=== PATIENT | male | born 1945 | race Caucasian/White ===

== ENCOUNTER → 2017-04-04 09:37 | Outpatient (CLI) | payer MEDICARE, SELFPAY ==
[2017-04-04 10:37] VITALS: PULSE 82; PULSE 90
== END ==
PROVIDERS: Family Provider Family Medicine; PCP Family Medicine; Visit Provider Family Medicine
DX: J06.9 Acute upper respiratory infection, unspecified (principal); J44.1 Chronic obstructive pulmonary disease with (acute) exacerbation
CPT/HCPCS: 94060; 94640

== ENCOUNTER 2018-05-17 07:31 | Observation (INO) ==
--- NOTE | 2018-05-17 15:58 | History & Physical Report ---
*Admission Date: 05/17/18 *Chief complaint: chest pressure *History of present illness: 72 year old male has been admitted from Cardiology office today after an abnormal stress test was noted. Patient started noticing symptoms about 2-3 weeks ago after being treated for a sinus infection. He denies actual pain, radiation of symptoms, shortness of breath, nausea or diarphoresis. Chest pressure occurs at rest and with activity. Current medications include simvastatin, finasteride, asa 81 mg, and OTC probiotic. He previously smoked 1.5PPD X30 years and quit in 2003. Describes self as pretty physically active by walking dog 4X/day or a couple miles each day. Diet is unrestricted and he does admit eating quite a few high fatty foods. Denies FH of heart disease. PMH significant for left knee surgery, left wrist surgery and left lung cancer. This was treated in 2014 with radiation. [facility] History Medical History: Reports:: BPH, Cancer, Hyperlipidemia, Peripheral Artery Disease *Have you ever received a pneumonia vaccine?: Yes Laterality Cases: Left: Arthroscopy Knee Other Surgeries: Yes: Cardiac Catheterization, Cholecystectomy, Other (L broken wrist sx, left knee sx, basal cancer) - *Social History Smoking Status: Former smoker #Yrs smoked (if former smoker): 30 Alcohol Intake: never Substance Use Type: denies use *Occupational Status:: retired Family Hx:: Cancer Review of Systems - Constitutional Denies fatigue, Denies lack of energy, Denies weakness - *Cardiovascular Denies chest pain, Denies generalized swelling, Denies irregular heart rhythm, Denies rapid, pounding, or irregular heartbeat Comments: chest pressure - *Respiratory Denies chest congestion, Denies cough, Denies shortness of breath - *Gastrointestinal Denies abdominal pain, Denies constipation - Allergic/Immunologic Denies GI upset with certain foods Meds Home Medications Medication Instructions Recorded Confirmed Type Lactobacillus Acidophilus 1 each PO DAILY 05/17/18 05/17/18 History [Acidophilus] aspirin 81 mg tablet,delayed 81 mg PO DAILY 05/17/18 05/17/18 History release finasteride 5 mg tablet 5 mg PO DAILY 05/17/18 05/17/18 History simvastatin 40 mg tablet 40 mg PO QHS 05/17/18 05/17/18 History Allergies Allergy/AdvReac Type Severity Reaction Status Date / Time No Known Allergies Allergy Verified 05/17/18 14:01 Exam Vital signs and Labs for Last 24 Hours: Temp Pulse Resp BP Pulse Ox 98.2 F 83 18 175/89 H 98 05/17/18 14:59 05/17/18 14:59 05/17/18 14:59 05/17/18 14:59 05/17/18 14:59 I & O for Last 24 hours: Intake & Output 05/14/18 05/15/18 05/16/18 05/17/18 23:59 23:59 23:59 23:59 Weight 165 lb 4 oz - Constitutional no acute distress Comments: well appearing male in NAD, sitting up in recliner chair with at bedside - *Routine HEENT Exam Head: Present: normocephalic, atraumatic Eye: Present: EOMI, PERRL ENT: Present: mucous membranes moist - *Routine Respiratory Exam Present: CTA bilaterally. Absent: accessory muscle use - *Routine Cardiovascular Exam Present: RRR, Normal S1, Normal S2. Absent: bradycardia, tachycardia, irregular rhythm - *Routine Abdominal Exam Present: soft, normoactive bowel sounds. Absent: tenderness, distended - *Routine Extremities Exam Present: full ROM. Absent: cyanosis, edema - *Routine Skin Exam Present: intact. Absent: cyanosis, pallor - *Routine Neurological Exam Present: alert, oriented X3 - Routine Psychiatric Exam Present: normal affect Assessment and Plan (1) HLD (hyperlipidemia) Current visit: No Status: Chronic Qualifiers: Hyperlipidemia type: mixed hyperlipidemia Qualified Code(s): E78.2 - Mixed hyperlipidemia Category: Medical Code(s): E78.5 - Hyperlipidemia, unspecified (2) Typical angina Current visit: No Status: Acute Category: Medical Code(s): I20.9 - Angina pectoris, unspecified - Assessment and plan all Dx Assessment and Plan for all problems:: Patient will be admitted to second floor medical surgical unit for observation and additional diagnostics. NPO after midnight as plan from Cardiology is to perform cardiac catheterization tomorrow. Intervention or additional recommendations will take place at that time.
[2018-05-17 17:22] LABS: Basophils % 0.5 % (0.1-2.0); Eosinophils # 0.1 K/mm3 (0.0-0.4); Eosinophils % 1.1 % (0.1-12.0); Hematocrit 50.1 % (42.0-52.0); Hemoglobin 16.5 g/dL (14.1-18.0); Lymphocytes # 2.2 K/mm3 (0.7-4.5); Lymphocytes % 24.9 % (10-50); Mean Corpuscular Hemoglobin 29.1 pg (27.0-31.2); Mean Corpuscular Volume 88.1 fl (80-94); Mean Platelet Volume 7.9 fl (7.4-10.4); Monocytes # 0.5 K/mm3 (0.1-1.0); Monocytes % 5.6 % (1.7-9.3); Neutrophils # 5.9 K/mm3 (1.8-7.8); Neutrophils % 68.1 % (37.0-80.0); Platelet Count 239 K/mm3 (142-424); Red Blood Count 5.68 M/mm3 (4.60-6.20); Red Cell Distribution Width 13.9 % (11.5-17.5); White Blood Count 8.7 K/mm3 (4.8-10.8)
[2018-05-17 17:30] LABS: Activated Partial Thrombo Time 30.5 seconds (23.6-34.0); INR 0.97 (0.9-1.1)
[2018-05-17 17:43] LABS: Albumin Level 4.4 gm/dL (3.4-5.0); Anion Gap 12.1 mEq/L (5-15); Bilirubin,Total 0.9 mg/dL (0.2-1.0); Calcium 10.1 mg/dL (8.5-10.1); Globulin 4.2 gm/dl (1.3-3.2); Potassium 4.1 mmoL/L (3.5-5.1); Total Protein,Serum 8.6 gm/dL (6.4-8.2)
[2018-05-18 06:02] LABS: Basophils % 0.5 % (0.1-2.0); Eosinophils # 0.1 K/mm3 (0.0-0.4); Eosinophils % 1.5 % (0.1-12.0); Hematocrit 41.2 % (42.0-52.0); Mean Corpuscular HGB Conc 33.1 g/dL (31.8-35.4); Mean Corpuscular Hemoglobin 28.6 pg (27.0-31.2); Mean Corpuscular Volume 86.4 fl (80-94); Mean Platelet Volume 7.6 fl (7.4-10.4); Monocytes # 0.5 K/mm3 (0.1-1.0); Monocytes % 6.1 % (1.7-9.3); Neutrophils # 4.8 K/mm3 (1.8-7.8); Neutrophils % 64.9 % (37.0-80.0); Platelet Count 206 K/mm3 (142-424); Red Blood Count 4.77 M/mm3 (4.60-6.20); White Blood Count 7.4 K/mm3 (4.8-10.8)
[2018-05-18 06:21] LABS: Hemoglobin 13.7 g/dL (14.1-18.0)
--- NOTE | 2018-05-18 07:00 | Progress Note ---
Internal Medicine - PN: Subj *Date: 05/18/18 *Time: 06:58 Interval history: Patient has done well overnight and denies any chest pain since admission to the floor. He is only ambulated short distances such as to the bathroom. He is scheduled for cardiac catheterization today Exam Vital signs and Labs for Last 24 Hours: Temp Pulse Resp BP Pulse Ox 97.9 F 66 18 104/85 L 96 05/18/18 04:00 05/18/18 04:00 05/18/18 04:00 05/18/18 04:00 05/18/18 04:00 Laboratory Results - last 24 hr 05/17/18 15:25: WBC 8.7, RBC 5.68, Hgb 16.5, Hct 50.1, MCV 88.1, MCH 29.1, MCHC 33.0, RDW 13.9, Plt Count 239, MPV 7.9, Neut % (Auto) 68.1, Lymph % (Auto) 24.9, [place] % (Auto) 5.6, Eos % (Auto) 1.1, Baso % (Auto) 0.5, Neut # (Auto) 5.9, Lymph # (Auto) 2.2, [place] # (Auto) 0.5, Eos # (Auto) 0.1, Baso # (Auto) 0.0 05/17/18 15:25: PT 10.0, INR 0.97, APTT 30.5 05/17/18 15:25: Sodium 139, Potassium 4.1, Chloride 103, Carbon Dioxide 28, Anion Gap 12.1, BUN 11, Creatinine 1.08, Estimated Creat Clear 67, Estimated GFR 68, Est GFR ( Amer) 82, Glucose 86, Calcium 10.1, Total Bilirubin 0.9, AST 18, ALT 26, Alkaline Phosphatase 103, Total Protein 8.6 H, Albumin 4.4, Globulin 4.2 H, Albumin/Globulin Ratio 1.0 L 05/17/18 15:25: Troponin I 0.03 05/17/18 20:06: Troponin I < 0.02 05/17/18 23:11: Troponin I < 0.02 05/18/18 00:35: APTT 33.7 05/18/18 05:36: WBC 7.4, RBC 4.77, Hgb 13.7 L D, Hct 41.2 L, MCV 86.4, MCH 28.6, MCHC 33.1, RDW 14.0, Plt Count 206, MPV 7.6, Neut % (Auto) 64.9, Lymph % (Auto) 27.0, [place] % (Auto) 6.1, Eos % (Auto) 1.5, Baso % (Auto) 0.5, Neut # (Auto) 4.8, Lymph # (Auto) 2.0, [place] # (Auto) 0.5, Eos # (Auto) 0.1, Baso # (Auto) 0.0 05/18/18 05:36: Sodium 142, Potassium 4.0, Chloride 107, Carbon Dioxide 26, Anion Gap 13.0, BUN 13, Creatinine 1.03, Estimated Creat Clear 71, Estimated GFR 71, Est GFR ( Amer) 86, Glucose 114 H D, Calcium 9.0 D I & O for Last 24 hours: Intake & Output 05/15/18 05/16/18 05/17/18 05/18/18 11:59 11:59 11:59 11:59 Intake Total 554 / 554 Balance 554 / 554 Weight 166 lb 1 oz - Constitutional no acute distress - *Routine Respiratory Exam Present: CTA bilaterally - *Routine Cardiovascular Exam Present: RRR Assessment and Plan (1) Unstable angina Current visit: Yes Status: Acute Category: Medical Code(s): I20.0 - Unstable angina (2) HLD (hyperlipidemia) Current visit: No Status: Chronic Qualifiers: Hyperlipidemia type: mixed hyperlipidemia Qualified Code(s): E78.2 - Mixed hyperlipidemia Category: Medical Code(s): E78.5 - Hyperlipidemia, unspecified (3) Former smoker Current visit: Yes Status: Acute Category: Social Hx Code(s): Z87.891 - Personal history of nicotine dependence (4) History of lung cancer Current visit: No Status: Chronic Category: Medical Code(s): Z85.118 - Personal history of other malignant neoplasm of bronchus and lung - Assessment and plan all Dx Assessment and Plan for all problems:: Left heart cath today
--- NOTE | 2018-05-18 07:39 | Pharmacy Consult Notes ---
[facility] Pharmacy VTE Monitoring - Patient Demographics Admission date: 05/17/18 Report Date: 05/18/18 Time: 07:39 Allergies/Adverse Reactions: Patient Allergies No Known Allergies Allergy (Verified 05/17/18 14:01) Height: 1.73 m Weight: 75.325 kg Patient Problems: Current Active Problems Unstable angina (Acute) Former smoker (Acute) - VTE Risk Labs: VTE Related Lab Results Hgb 13.7 g/dL (14.1-18.0) L D 05/18/18 05:36 Hct 41.2 % (42.0-52.0) L 05/18/18 05:36 Plt Count 206 K/mm3 (142-424) 05/18/18 05:36 PT 10.0 seconds (9.4-11.8) 05/17/18 15:25 INR 0.97 (0.9-1.1) 05/17/18 15:25 APTT 33.7 seconds (23.6-34.0) 05/18/18 00:35 BUN 13 mg/dL (7-18) 05/18/18 05:36 Creatinine 1.03 mg/dL (0.70-1.30) 05/18/18 05:36 Estimated Creat Clear 71 mL/min (50-200) 05/18/18 05:36 VTE Score: 1 - Prophylaxis VTE Prophylaxis Ordered?: Yes Types of VTE Prophylaxis: TEDS Knee High Location of Applied Device: Bilateral Lower Extremeties - VTE Diagnosis Confirmed Treatment or plan recommended: Continue Current Treatment
--- NOTE | 2018-05-18 10:28 | Progress Note ---
Addendum entered and electronically signed by Wendie Lackey APRN 05/18/18 14:42: Pt returned from Left heart catheterization. SOFY applied to LAD, Left Main and R ight coronary artery. Pt doing well. Pressure dressing had been applied to right wrist after catheterization. Pt was started on Brillinta 90mg BID, Aspirin 81mg daily, Beta kellie and Juan [place] inhibitor. Discussed with pt the importance of no heavy lifting or strenuous activity until follow up with Cardiology in one week. Discuss cardiac rehab at follow up. Follow up in cardiology clinic in one week o r sooner if symptoms develop/persist. Original Note: Subjective Date: 05/18/18 Time: 08:00 Principal diagnosis: Typical chest pain Interval history: 72 year old male admitted to [facility] on 05/17/18 due to typical angina. Pt underwent cardiac stress test and started having chest pain, which did not resolve with rest. Pt stated he had been having increase chest pressure for the past few days accompanied with shortness of breath. Pt denies chest pain, pressure or tightness this am. Pt is resting quietly in his room. at bedside. Pt noted in no distress. Pt is awaiting left heart catheterization this am. Pt verbalized understanding of procedure. Pt agreeable to procedure. Pt noted with Heparin drip infusing. vehicle monitor technician reveals sinus rhythm with heart rate of 80bpm with no ectopy. Pt denies dizziness or palpitations. Pt stated history PAD (stents placed a few years ago). Denies cardiac history. Pt does have history of Lung cancer (2015) and Hyperlipidemia. Pt is a former smoker. Initial cardiac workup was performed. Creatinine 1.08 and BUN 11. Left heart cathertization is scheduled for this am. Recommend obtaining Echocardiogram to assess LV function and valve status. Further recommendations will be made pending on results of [facility]. Thank you for letting Cardiology participate in the care of your pt. Exam Vital signs and Labs for Last 24 Hours: Temp Pulse Resp BP Pulse Ox 98.4 F 70 17 126/68 94 L 05/18/18 08:00 05/18/18 08:00 05/18/18 08:00 05/18/18 08:00 05/18/18 08:00 Laboratory Results - last 24 hr 05/17/18 15:25: WBC 8.7, RBC 5.68, Hgb 16.5, Hct 50.1, MCV 88.1, MCH 29.1, MCHC 33.0, RDW 13.9, Plt Count 239, MPV 7.9, Neut % (Auto) 68.1, Lymph % (Auto) 24.9, [place] % (Auto) 5.6, Eos % (Auto) 1.1, Baso % (Auto) 0.5, Neut # (Auto) 5.9, Lymph # (Auto) 2.2, [place] # (Auto) 0.5, Eos # (Auto) 0.1, Baso # (Auto) 0.0 05/17/18 15:25: PT 10.0, INR 0.97, APTT 30.5 05/17/18 15:25: Sodium 139, Potassium 4.1, Chloride 103, Carbon Dioxide 28, Anion Gap 12.1, BUN 11, Creatinine 1.08, Estimated Creat Clear 67, Estimated GFR 68, Est GFR ( Amer) 82, Glucose 86, Calcium 10.1, Total Bilirubin 0.9, AST 18, ALT 26, Alkaline Phosphatase 103, Total Protein 8.6 H, Albumin 4.4, Globulin 4.2 H, Albumin/Globulin Ratio 1.0 L 05/17/18 15:25: Troponin I 0.03 05/17/18 20:06: Troponin I < 0.02 05/17/18 23:11: Troponin I < 0.02 05/18/18 00:35: APTT 33.7 05/18/18 05:36: WBC 7.4, RBC 4.77, Hgb 13.7 L D, Hct 41.2 L, MCV 86.4, MCH 28.6, MCHC 33.1, RDW 14.0, Plt Count 206, MPV 7.6, Neut % (Auto) 64.9, Lymph % (Auto) 27.0, [place] % (Auto) 6.1, Eos % (Auto) 1.5, Baso % (Auto) 0.5, Neut # (Auto) 4.8, Lymph # (Auto) 2.0, [place] # (Auto) 0.5, Eos # (Auto) 0.1, Baso # (Auto) 0.0 05/18/18 05:36: Sodium 142, Potassium 4.0, Chloride 107, Carbon Dioxide 26, Anion Gap 13.0, BUN 13, Creatinine 1.03, Estimated Creat Clear 71, Estimated GFR 71, Est GFR ( Amer) 86, Glucose 114 H D, Calcium 9.0 D 05/18/18 07:38: APTT 45.8 H D I & O for Last 24 hours: Intake & Output 05/15/18 05/16/18 05/17/18 05/18/18 23:59 23:59 23:59 23:59 Intake Total 360 / 360 194 / 194 Balance 360 / 360 194 / 194 Weight 165 lb 4 oz 166 lb 1 oz - Constitutional mild distress, average body habitus, cooperative - *Routine HEENT Exam Head: Present: normocephalic - *Routine Neck Exam Present: full ROM. Absent: JVD, carotid bruit, normal carotid upstroke - Routine Chest/Breast/Axilla Exam Chest wall: Absent: pacemaker - *Routine Respiratory Exam Present: accessory muscle use, CTA bilaterally. Absent: wheezes - *Routine Cardiovascular Exam Present: Normal S1, Normal S2. Absent: murmur, click, JVD - *Routine Abdominal Exam Present: soft, normoactive bowel sounds. Absent: mass - *Routine Extremities Exam Present: full ROM, pulses intact, normal capillary refill. Absent: cyanosis, clubbing, edema - *Routine Skin Exam Present: intact, dry, warm, normal turgor. Absent: cyanosis, erythema - *Routine Neurological Exam Present: alert, oriented X3, CN II-XII intact, normal reflexes, normal speech - Routine Psychiatric Exam Present: normal affect, normal thought process, cooperative Progress Note: A&P (1) Unstable angina Status: Acute Current Visit: Yes (2) HLD (hyperlipidemia) Status: Chronic Current Visit: No (3) Former smoker Status: Acute Current Visit: Yes (4) History of lung cancer Status: Chronic Current Visit: No Assessment and Plan for All Diagnoses:: Plan: 1. Schedule Left Heart catheterization today due to typical angina and abnormal cardiovascular stress test. 2. Obtain echocardiogram today to assess LV function and valve status. 3. Pending on results of left heart catheterization, further recommendations may be made to plan of care.
--- NOTE | 2018-05-18 15:22 | Cardiology Report ---
PROCEDURE: 2-D M-mode and color Doppler study INDICATIONS FOR THE TEST: Chest painXEX COPD Heart Murmur Tobacco SmokingEX Palpitations Fatigue Syncope Edema Hypertension Diabetes Mellitus Rheumatic Fever SOB DONOHUE Obesity HyperlipidemiaX Family History HD Additional History PERICARDIAL EFF NOTED PATIENT INFORMATION HEIGHT: 68 WEIGHT:166 GENDER: Male B/P:175/89 2-D/M-MODE INTERPRETATION: 2-D MEASUREMENTS OBSERVED VALUES IN CMS Right Ventricular Dimension (RVDd) 3.2 Interventricular Septum (Thickness)(IVsd) 1.0 Left Ventricular Internal Dimensions(LVIDd) 4.1 Left Ventricular Posterior Wall (Thickness)(LVPWd) 1.2 Aortic Root 3.6 Aortic Cusp Separation 1.2 Left Atrial Dimensions (LAD) 3.1 2D 1. Left atrium is mildly enlarged, left ventricle is normal size, mild concentric left ventricular hypertrophy, visually estimated ejection fraction 55% with no regional wall motion abnormality. 2. The right atrium and right ventricle are mildly enlarged with normal contractility. 3. The aortic valve is minimally thickened and fibrosed. 4. The mitral and tricuspid valve are grossly normal. 5. The pulmonic valve is poorly is less than 6. There is small circumferential pericardial effusion noted. DOPPLER INTERROGATION: Doppler interrogation of the aortic, mitral and tricuspid valvular presence of mild mitral and tricuspid regurgitation, tricuspid regurgitation jet velocity is inadequate for calculation of the right ventricular systolic pressure, grade 1 diastolic dysfunction seen without tissue Doppler evidence of raised left atrial pressure. CONCLUSION: 1. Mildly enlarged left atrium, normal left ventricular size, mild concentric left ventricular hypertrophy, visually estimated ejection fraction 55% with no regional wall motion abnormality, grade 1 diastolic dysfunction seen without tissue Doppler evidence of raised left atrial pressure. 2. Mildly enlarged right atrium and right ventricle, contractility of the right ventricle is normal. 3. Mild mitral and tricuspid regurgitation 4. Small circumferential pericardial effusion noted.
--- NOTE | 2018-05-18 15:40 | Pharmacy Consult Notes ---
[facility] Pharmacy Heparin Dosing - Demographic Data Admission date:: 05/17/18 Date: 05/18/18 Time: 15:37 Allergies/Adverse Reactions: Allergies Allergy/AdvReac Type Severity Reaction Status Date / Time No Known Allergies Allergy Verified 05/17/18 14:01 Height: 1.73 m Weight: 75 kg - Indication Medication therapy:: Heparin Patient Problems: Current Active Problems Unstable angina (Acute) Former smoker (Acute) CVA?: No Bleeding problem?: No Kidney disease?: No LA?: No Desired PTT range:: 60-80 seconds - Labs Anticoagulation Lab Results:: 05/17/18 05/18/18 15:25 05:36 Hgb 16.5 13.7 L D Hct 50.1 41.2 L Plt Count 239 206 - Monitoring Dose Monitor 1 Date: 05/17/18 Time: 15:25 PTT Result:: 30.5 Infusion Rate:: 18 ML/HR = 900 UNITS/HR Comment:: BASELINE APM=173 Dose Monitor 2 Date: 05/18/18 Time: 00:35 PTT Result:: 33.7 Infusion Rate:: 22 ML/HR = 1100 UNITS/HR Dose Monitor 3 Date: 05/18/18 Time: 07:38 PTT Result:: 45.8 Infusion Rate:: 24 ML/HR = 1200 UNITS/HR - Core Measures Is INR > or = 2 at discharge?: No Most Recent Labs:: Laboratory Results - last 24 hr 05/17/18 15:25: WBC 8.7, RBC 5.68, Hgb 16.5, Hct 50.1, MCV 88.1, MCH 29.1, MCHC 33.0, RDW 13.9, Plt Count 239, MPV 7.9, Neut % (Auto) 68.1, Lymph % (Auto) 24.9, [place] % (Auto) 5.6, Eos % (Auto) 1.1, Baso % (Auto) 0.5, Neut # (Auto) 5.9, Lymph # (Auto) 2.2, [place] # (Auto) 0.5, Eos # (Auto) 0.1, Baso # (Auto) 0.0 05/17/18 15:25: PT 10.0, INR 0.97, APTT 30.5 05/17/18 15:25: Sodium 139, Potassium 4.1, Chloride 103, Carbon Dioxide 28, Anion Gap 12.1, BUN 11, Creatinine 1.08, Estimated Creat Clear 67, Estimated GFR 68, Est GFR ( Amer) 82, Glucose 86, Calcium 10.1, Total Bilirubin 0.9, AST 18, ALT 26, Alkaline Phosphatase 103, Total Protein 8.6 H, Albumin 4.4, Globulin 4.2 H, Albumin/Globulin Ratio 1.0 L 05/17/18 15:25: Troponin I 0.03 05/17/18 20:06: Troponin I < 0.02 05/17/18 23:11: Troponin I < 0.02 05/18/18 00:35: APTT 33.7 05/18/18 05:36: WBC 7.4, RBC 4.77, Hgb 13.7 L D, Hct 41.2 L, MCV 86.4, MCH 28.6, MCHC 33.1, RDW 14.0, Plt Count 206, MPV 7.6, Neut % (Auto) 64.9, Lymph % (Auto) 27.0, [place] % (Auto) 6.1, Eos % (Auto) 1.5, Baso % (Auto) 0.5, Neut # (Auto) 4.8, Lymph # (Auto) 2.0, [place] # (Auto) 0.5, Eos # (Auto) 0.1, Baso # (Auto) 0.0 05/18/18 05:36: Sodium 142, Potassium 4.0, Chloride 107, Carbon Dioxide 26, Anion Gap 13.0, BUN 13, Creatinine 1.03, Estimated Creat Clear 71, Estimated GFR 71, Est GFR ( Amer) 86, Glucose 114 H D, Calcium 9.0 D 05/18/18 07:38: APTT 45.8 H D 05/18/18 12:36: Activated Clotting Time > 400 H* Were Heparin and Warfarin started on the same day?: No If not, why?: TAKEN TO BUSINESS MACHINE OPERATOR, HEPARIN DC'D, WARFARIN OR LOVENOX NOT INDICATED
--- NOTE | 2018-05-18 16:11 | Discharge Summary ---
General - General Admission date:: 05/17/18 Discharge date: 05/18/18 HPI HPI: 72 year old male has been admitted from Cardiology office today after an abnormal stress test was noted. Patient started noticing symptoms about 2-3 weeks ago after being treated for a sinus infection. He denies actual pain, radiation of symptoms, shortness of breath, nausea or diarphoresis. Chest pressure occurs at rest and with activity. Current medications include simvastatin, finasteride, asa 81 mg, and OTC probiotic. He previously smoked 1.5PPD X30 years and quit in 2003. Describes self as pretty physically active by walking dog 4X/day or a couple miles each day. Diet is unrestricted and he does admit eating quite a few high fatty foods. Denies FH of heart disease. PMH significant for left knee surgery, left wrist surgery and left lung cancer. This was treated in 2014 with radiation. Hospital Course Hospital Course: Patient had cardiac catheterization today with note as follows: Pt returned from Left heart catheterization. SOFY applied to LAD, Left Main and Right coronary artery. Pt doing well. Pressure dressing had been applied to right wrist after catheterization. Pt was started on Brillinta 90mg BID, Aspirin 81mg daily, Beta kellie and Juan Diego inhibitor. Discussed with pt the importance of no heavy lifting or strenuous activity until follow up with Cardiology in one week. Discuss cardiac rehab at follow up. Follow up in cardiology clinic in one week or sooner if symptoms develop/persist. Objective Vital signs: Temp Pulse Resp BP Pulse Ox 98.5 F 67 16 101/75 L 98 05/18/18 11:12 05/18/18 14:15 05/18/18 14:15 05/18/18 14:15 05/18/18 14:15 no acute distress - *Routine HEENT Exam Head: Present: normocephalic, atraumatic ENT: Present: mucous membranes moist - *Routine Respiratory Exam Present: CTA bilaterally. Absent: accessory muscle use - *Routine Cardiovascular Exam Present: RRR, Normal S1, Normal S2. Absent: irregular rhythm - *Routine Abdominal Exam Present: soft, normoactive bowel sounds. Absent: tenderness - *Routine Extremities Exam Present: full ROM. Absent: cyanosis, edema - *Routine Skin Exam Present: intact. Absent: pallor - *Routine Neurological Exam Present: alert, oriented X3 - Routine Psychiatric Exam Present: normal affect Results Labs on day of discharge: Labs from last 24 hours 05/18/18 05/18/18 05/18/18 12:36 07:38 05:36 WBC RBC Hgb Hct MCV MCH MCHC RDW Plt Count MPV Neut % (Auto) Lymph % (Auto) [place] % (Auto) Eos % (Auto) Baso % (Auto) Neut # (Auto) Lymph # (Auto) [place] # (Auto) Eos # (Auto) Baso # (Auto) PT INR APTT 45.8 H D Activated Clotting Time > 400 H* Sodium 142 Potassium 4.0 Chloride 107 Carbon Dioxide 26 Anion Gap 13.0 BUN 13 Creatinine 1.03 Estimated Creat Clear 71 Estimated GFR 71 Est GFR ( Amer) 86 Glucose 114 H D Calcium 9.0 D Total Bilirubin AST ALT Alkaline Phosphatase Troponin I Total Protein Albumin Globulin Albumin/Globulin Ratio 05/18/18 05/18/18 05/17/18 05:36 00:35 23:11 WBC 7.4 RBC 4.77 Hgb 13.7 L D Hct 41.2 L MCV 86.4 MCH 28.6 MCHC 33.1 RDW 14.0 Plt Count 206 MPV 7.6 Neut % (Auto) 64.9 Lymph % (Auto) 27.0 [place] % (Auto) 6.1 Eos % (Auto) 1.5 Baso % (Auto) 0.5 Neut # (Auto) 4.8 Lymph # (Auto) 2.0 [place] # (Auto) 0.5 Eos # (Auto) 0.1 Baso # (Auto) 0.0 PT INR APTT 33.7 Activated Clotting Time Sodium Potassium Chloride Carbon Dioxide Anion Gap BUN Creatinine Estimated Creat Clear Estimated GFR Est GFR ( Amer) Glucose Calcium Total Bilirubin AST ALT Alkaline Phosphatase Troponin I < 0.02 Total Protein Albumin Globulin Albumin/Globulin Ratio 05/17/18 05/17/18 05/17/18 20:06 15:25 15:25 WBC RBC Hgb Hct MCV MCH MCHC RDW Plt Count MPV Neut % (Auto) Lymph % (Auto) [place] % (Auto) Eos % (Auto) Baso % (Auto) Neut # (Auto) Lymph # (Auto) [place] # (Auto) Eos # (Auto) Baso # (Auto) PT INR APTT Activated Clotting Time Sodium 139 Potassium 4.1 Chloride 103 Carbon Dioxide 28 Anion Gap 12.1 BUN 11 Creatinine 1.08 Estimated Creat Clear 67 Estimated GFR 68 Est GFR ( Amer) 82 Glucose 86 Calcium 10.1 Total Bilirubin 0.9 AST 18 ALT 26 Alkaline Phosphatase 103 Troponin I < 0.02 0.03 Total Protein 8.6 H Albumin 4.4 Globulin 4.2 H Albumin/Globulin Ratio 1.0 L 05/17/18 05/17/18 15:25 15:25 WBC 8.7 RBC 5.68 Hgb 16.5 Hct 50.1 MCV 88.1 MCH 29.1 MCHC 33.0 RDW 13.9 Plt Count 239 MPV 7.9 Neut % (Auto) 68.1 Lymph % (Auto) 24.9 [place] % (Auto) 5.6 Eos % (Auto) 1.1 Baso % (Auto) 0.5 Neut # (Auto) 5.9 Lymph # (Auto) 2.2 [place] # (Auto) 0.5 Eos # (Auto) 0.1 Baso # (Auto) 0.0 PT 10.0 INR 0.97 APTT 30.5 Activated Clotting Time Sodium Potassium Chloride Carbon Dioxide Anion Gap BUN Creatinine Estimated Creat Clear Estimated GFR Est GFR ( Amer) Glucose Calcium Total Bilirubin AST ALT Alkaline Phosphatase Troponin I Total Protein Albumin Globulin Albumin/Globulin Ratio DS: Diagnosis - Discharge Diagnosis (1) Unstable angina Status: Acute (2) HLD (hyperlipidemia) Status: Chronic (3) Former smoker Status: Acute (4) History of lung cancer Status: Chronic Discharge Plan - Patient Discharge Instructions Additional Instructions: FOLLOW UP APPOINTMENT WITH CARDIOLOGY ON 05/25/18 AT 0920 Patient Instructions: Angina - Follow up Plan Follow up with: Magy Logan APRN [Nurse Practitioner] - 05/25/18 11:00 am Disposition: Home, Self-Assisted Medications: Home Medications Medication Instructions Recorded Confirmed Type Lactobacillus Acidophilus 1 each PO DAILY 05/17/18 05/17/18 History [Acidophilus] aspirin 81 mg tablet,delayed 81 mg PO DAILY 05/17/18 05/17/18 History release finasteride 5 mg tablet 5 mg PO DAILY 05/17/18 05/17/18 History Lisinopril [Prinivil 5mg Tablet] 5 mg PO DAILY #30 tab 05/18/18 Rx Metoprolol Tartrate [Lopressor 12.5 mg PO BID #30 tablet 05/18/18 Rx 25mg tablet] Simvastatin 20 mg PO HS 05/18/18 05/18/18 History Ticagrelor [Brilinta 90mg Tablet] 90 mg PO BID #60 tablet 05/18/18 Rx Prescriptions/Medication Reconciliation: New Lisinopril [Prinivil 5mg Tablet] 5 mg PO DAILY #30 tab Metoprolol Tartrate [Lopressor 25mg tablet] 12.5 mg PO BID #30 tablet Ticagrelor [Brilinta 90mg Tablet] 90 mg PO BID #60 tablet Continue finasteride 5 mg tablet 5 mg PO DAILY aspirin 81 mg tablet,delayed release 81 mg PO DAILY Lactobacillus Acidophilus [Acidophilus] 1 each PO DAILY Simvastatin 20 mg PO HS
== END 2018-05-18 20:15 | disposition home or self-care (01) ==
LOC: 2ND 07:31 → RAD 07:31 → ICU 05-18 13:36
PROVIDERS: ADMIT Family Medicine; ATTEND Family Medicine
CPT/HCPCS: 36415; 78452; 80048; 80053; 84484; 85025; 85347; 85610; 85730; 92928; 93017; 93306; 93458; 99152; 99153; A9502; C1725; C1769; C1876; C9600; G0378; J1644; Q9967

== ENCOUNTER → 2018-05-24 11:07 | Outpatient (CLI) | payer MEDICARE, SELFPAY ==
[2018-05-24 11:36] LABS: Hematocrit 44.7 % (42.0-52.0); Hemoglobin 15.1 g/dL (14.1-18.0)
[2018-05-24 16:30] LABS: Blood Urea Nitrogen 20 mg/dL (7-18); Creatinine,Serum 1.04 mg/dL (0.70-1.30); Estimated Glomerular Filt Rate 71 ml/min (>60); GFR (African American) 85 ML/MIN (>60)
== END ==
PROVIDERS: Visit Provider Internal Medicine
DX: Z95.5 Presence of coronary angioplasty implant and graft (principal)
CPT/HCPCS: 36415; 82565; 84520; 85014; 85018

== ENCOUNTER 2018-05-29 09:07 | Outpatient (RCR) | payer MEDICARE, SELFPAY | END 2018-08-17 13:16 | disposition home or self-care (01) | LOC: PT 09:07 | PROVIDERS: Visit Provider Internal Medicine | DX: Z98.61 Coronary angioplasty status (principal) | CPT/HCPCS: 93798 ==

== ENCOUNTER → 2018-06-05 08:35 | Outpatient (CLI) | payer MEDICARE, SELFPAY ==
--- NOTE | 2018-06-05 08:44 | XR_ITS ---
XR DEXA axial skeleton HISTORY: ITS.REASON: OSTEOPOROSIS SCREENING ORDERING PHYSICIAN: Magy Logan APRN PATIENT AGE: 72 years COMPARISON: None FINDINGS: The L1 L4 density has a T score of -1.0 with a Z score of -0.4. Right femoral neck density is 0.787 g/sq cm with a T score of -2.2 and a Z score of -0.9. IMPRESSION: Low bone density as described above. Follow-up suggested. Treatment is advised
== END ==
PROVIDERS: PCP Family Medicine; Visit Provider Nurse Practitioner Family
DX: Z09 Encounter for follow-up examination after completed treatment for conditions other than malignant neoplasm (principal)
CPT/HCPCS: 77080

== ENCOUNTER 2018-06-10 14:21 | Observation (INO) ==
--- NOTE | 2018-06-10 14:23 | Emergency Department Note ---
ED Disposition Clinical Impression: Precordial chest pain Disposition: Admitted as Observation Condition on Discharge: Fair Referrals: Lakhwinder Link MD [Primary Care Provider] - - Critical Care Critical Care Time: No Attestation: On , the high probability of a clinically significant, sudden or life t hreatening deterioration of the following system(s) required my full and direct attention, intervention and personal management. The time I documented below is in addition to time spent performing reported procedures but includes the following listed in this critical care notation. Medical Decision Making - [place]aveen Inquiry Pt receiving controlled substance: No Vital Signs: 06/10/18 14:30 06/10/18 14:39 06/10/18 14:51 Temperature 97.8 F Temperature Source Oral Pulse Rate [Left Brachial] 70 65 69 Respiratory Rate 24 Blood Pressure [Left Arm] 112/75 149/70 H 118/75 Blood Pressure Mean [Left Arm] 87 96 89 Blood Pressure Source [Left Arm] Automatic Cuff Blood Pressure Position [Left Arm] Sitting 02 Sat by Pulse Oximetry 98 95 92 L Oxygen Delivery Method Room Air - Lab Data Lab Results 06/10/18 14:26: WBC 7.0, RBC 5.29, Hgb 15.4, Hct 46.3, MCV 87.4, MCH 29.2, MCHC 33.3, RDW 14.0, Plt Count 184, MPV 7.6, Neut % (Auto) 64.7, Lymph % (Auto) 26.9, [place] % (Auto) 5.6, Eos % (Auto) 2.2, Baso % (Auto) 0.6, Neut # (Auto) 4.6, Lymph # (Auto) 1.9, [place] # (Auto) 0.4, Eos # (Auto) 0.2, Baso # (Auto) 0.0 06/10/18 14:26: Sodium 143, Potassium 3.9, Chloride 105, Carbon Dioxide 29, Anion Gap 12.9, BUN 12, Creatinine 1.07, Estimated Creat Clear 66, Estimated GFR 68, Est GFR ( Amer) 83, Glucose 61 L, Calcium 9.4, Troponin I < 0.02, Amylase 41 06/10/18 14:26: Lipase 92 Result diagrams: 06/10/18 14:26 06/10/18 14:26 Orders (Tests/Meds): ED MEDICATIONS Generic Name Dose Route Start Last Admin Trade Name Freq PRN Reason Stop Dose Admin Nitroglycerin 0.4 mg 06/10/18 14:33 06/10/18 14:56 Nitrostat 0.4mg Sl Tablet SL 07/10/18 14:32 1 tab [id number] PRN Administration Chest Pain Ranolazine 1,000 mg 06/10/18 21:00 Ranexa 500mg Er Tablet PO 07/10/18 20:59 BID AMAN Discontinued Medications Generic Name Dose Route Start Last Admin Trade Name Freq PRN Reason Stop Dose Admin Aspirin 324 mg 06/10/18 14:33 06/10/18 14:55 Aspirin 81mg Chewable Tablet PO 06/10/18 14:34 324 mg ONCE ONE Administration ORDERS Category Date Time Status XR chest portable Stat Exams 06/10/18 14:27 Taken - Radiology Data #1 Image(s): Chest Image Reviewed: Yes I reviewed the patient's radiology image Preliminary Findings: Normal/NAD - ECG Data Tracing #1 EKG interpreted by Nilay Smith MD: Rhythm: sinus Rate: 69 [place]: normal Ectopy: none Conduction: normal ST Segment Changes: none T Wave Changes: none Q Waves: none No evidence of acute ischemia or injury - Physician Consults Physician Consulted: Gulshan Time: 15:18 Reason -: Cardiology Eval/Care Comment/Response: States this is likely arteritis from stents. Request patient be started on Ranexa 1000 mg twice daily, admitted for serial cardiac enzymes. Additional Consult: Nikolay Time: 15:25 Reason -: Admission Comment/Response: Agrees to admit the patient to the hospital. We discussed the patient's clinical information, including history, exam, laboratory and radiology results and ED course. Per hospital procedure, I will write temporary bridge inpatient orders on the patient. Specific orders requested by the admitting physician: Per cardiology - Reevaluation(s) Time: 15:12 Reevaluation #1: States his chest "pain" is gone but still having a low-grade pressure, like what he had before he had stents. Medical Decision Narrative: Prior [facility]: ANGIOGRAPHIC RESULTS: 1. The left main artery has a distal 20-30% stenosis 2. The left anterior descending artery has an ostial 50% stenosis followed by a proximal 40% stenosis followed by an 80-90% stenosis immediately distal to the first septal medical geneticist and diagonal artery. The remaining vessel is widely patent with minimal stenoses less than 10% 3. The circumflex artery is a nondominant vessel and has mild 10% luminal irregularities 4. The right coronary artery is a large dominant vessel and has proximal 80-90% stenosis with 70-80% mid vessel stenoses. Distally there are 30% stenoses 5. The JUNIOR ventriculogram reveals normal 65% 6. The left ventricular end-diastolic pressure 10 mmHg IMPRESSION: 1. Successful stenting of the left main artery, severe disease reduced to 0% with 1 drug-eluting stent 2. Successful stenting of the ostial proximal LAD, severe disease reduced to 0% with 2 drug-eluting stents as described above 3. Successful stenting of the proximal to mid dominant right coronary artery, severe disease reduced to 0% with 2 contiguous drug-eluting stents as described above 4. Normal ejection fraction 5. Normal left ventricular end-diastolic pressure PLAN: 1. Brilinta and aspirin 2. LDL less than 55 3. Risk factor modification 4. Cardiac rehabilitation 5. Continued surveillance of patient's known lung cancer per oncology service 6. Avoidance of tobacco products Dictated By: Carl Gaffney MD Signed By: <Electronically signed by Carl Gaffney MD in OV> 05/18/18 1426 General Adult HPI - General Chief complaint: PAIN Stated complaint: left shoulder pain Time Seen by Provider: 06/10/18 14:25 - History of Present Illness HPI narrative: The patient had cardiac stents placed by Dr. Gaffney 3 weeks ago. 1 hour ago he started having chest pressure in the precordial area with discomfort in his left shoulder and increased shortness of breath. Feels flushed, but not sweaty or nauseated. Also states that he was having "gas" since last night, describes as lots of belching. Current discomfort is 3-4/10. States that his current discomfort is the same type that he was having prior to having stents placed, but he is worse in intensity. He says that he has been having problems with shortness of breath, he was changed from Brilinta to Plavix a couple of days ago because of that. He takes aspirin 81 mg daily, he last took it last night. - Related Data Home Medications Medication Instructions Recorded Confirmed Lactobacillus Acidophilus 1 each PO DAILY 05/17/18 06/10/18 [Acidophilus] aspirin 81 mg tablet,delayed 81 mg PO DAILY 05/17/18 06/10/18 release finasteride 5 mg tablet 5 mg PO DAILY 05/17/18 06/10/18 Simvastatin 20 mg PO HS 05/18/18 06/10/18 Clopidogrel Bisulfate [Plavix 75mg 75 mg PO DAILY 06/10/18 06/10/18 Tab] Lisinopril [Prinivil 5mg Tablet] 5 mg PO DAILY 06/10/18 06/10/18 Metoprolol Tartrate [Lopressor 12.5 mg PO BID 06/10/18 06/10/18 25mg tablet] Allergies Allergy/AdvReac Type Severity Reaction Status Date / Time No Known Allergies Allergy Verified 06/07/18 10:35 [facility] History - Hepatitis A Screen Attestation statement:: This patient has been screened for Hepatitis A risk factors. I have reviewed the patient's past medical history: Yes Medical History: Reports:: BPH, Cancer, Hyperlipidemia, Hypertension, Peripheral Artery Disease Denies:: Diabetes Mellitus Type 1, Diabetes Mellitus Type 2, MRSA Other Medical History: Reports: Chemotherapy, Radiation Therapy Laterality Cases: Other Surgeries: Yes: Cardiac Catheterization, Cholecystectomy, Coronary Stent, Other Amputation: No Fractures: No - Social History Smoking Status: Former smoker #Yrs smoked (if former smoker): 30 Alcohol Intake: never Substance Use Type: denies use Occupational Status: retired Housing: house Household Members: spouse Family Hx:: Cancer Comment: Brother-Cancer. Sister-Respiratory ROS Obtained: Yes All systems reviewed & no additional complaints - Constitutional Constitutional: Denies fever(s) - Cardiovascular Cardiovascular: Reports chest pain, Denies leg edema - Respiratory Respiratory: Yes dyspnea Physical Exam - General General appearance: alert, in no apparent distress - Head Head exam: atraumatic, normocephalic - Eye Eye exam: Present: normal appearance, EOMI - ENT ENT exam: Present: mucous membranes moist - Neck Neck exam: Present: normal inspection, trachea midline - Chest Chest inspection: Present: normal inspection, symmetric chest wall rise - Respiratory Respiratory exam: Present: normal lung sounds bilaterally. Absent: respiratory distress - Cardiovascular Cardiovascular exam: Present: regular rate, normal rhythm, normal heart sounds - Abdominal Exam Abdominal exam: Present: soft. Absent: distention, tenderness - Extremities Exam Extremities exam: Present: normal inspection, full ROM. Absent: calf tenderness - Neurological Exam Neurological exam: Present: alert, oriented X3 - Psychiatric Psychiatric exam: Present: normal affect, normal mood - Skin Skin exam: Present: warm, dry
[2018-06-10 14:39] LABS: Basophils % 0.6 % (0.1-2.0); Eosinophils # 0.2 K/mm3 (0.0-0.4); Eosinophils % 2.2 % (0.1-12.0); Hematocrit 46.3 % (42.0-52.0); Hemoglobin 15.4 g/dL (14.1-18.0); Lymphocytes # 1.9 K/mm3 (0.7-4.5); Lymphocytes % 26.9 % (10-50); Mean Corpuscular HGB Conc 33.3 g/dL (31.8-35.4); Mean Corpuscular Hemoglobin 29.2 pg (27.0-31.2); Mean Corpuscular Volume 87.4 fl (80-94); Mean Platelet Volume 7.6 fl (7.4-10.4); Monocytes # 0.4 K/mm3 (0.1-1.0); Monocytes % 5.6 % (1.7-9.3); Neutrophils # 4.6 K/mm3 (1.8-7.8); Neutrophils % 64.7 % (37.0-80.0); Platelet Count 184 K/mm3 (142-424); Red Blood Count 5.29 M/mm3 (4.60-6.20)
[2018-06-10 14:52] LABS: Amylase 41 U/L (25-115); Anion Gap 12.9 mEq/L (5-15); Blood Urea Nitrogen 12 mg/dL (7-18); Calcium 9.4 mg/dL (8.5-10.1); Carbon Dioxide 29 mmol/L (21.0-32.0); Chloride 105 mmol/L (98-107); Glucose 61 mg/dL (74-106); Potassium 3.9 mmoL/L (3.5-5.1); Sodium 143 mmol/L (136-145)
--- NOTE | 2018-06-11 07:31 | H&P/Discharge Summary ---
General - General Admission date:: 06/10/18 Discharge date: 06/11/18 *Admission Date: 06/10/18 *Chief complaint: Chest pain *History of present illness: 72-year-old male with recent stenting from obstructive coronary artery disease presented to the emergency department yesterday with chest pain radiating into the left shoulder. Patient reports yesterday morning experiencing onset of a "chest heaviness". Chest heaviness was intermittent and lasted throughout the morning and into the afternoon. However in the afternoon the discomfort change from a heaviness to a sharp stabbing pain that radiated into the left shoulder. Patient became concerned. He also admits to facial flushing and may be mild increase in baseline dyspnea with the chest pain. The chest pain he experienced yesterday afternoon was more intense than any pain he experienced prior to coronary artery stenting. In the emergency department he was given nitroglycerin with resolution of the pain. ER physician spoke with Dr. Gaffney who recommended admission for rule out of SC with serial cardiac enzymes. Patient is ruled out for SC overnight. He was started on Ranexa 1000 mg twice daily yesterday evening per Dr. Gaffney's orders. [facility] History I have reviewed the patient's past medical history: Yes Medical History: Reports:: BPH, Cancer, Chronic Obstructive Pulmonary Disease (COPD), Coronary Artery Disease, Hyperlipidemia, Hypertension, Peripheral Artery Disease Denies:: Diabetes Mellitus Type 1, Diabetes Mellitus Type 2, MRSA *Have you ever received a pneumonia vaccine?: Yes *Have you received a flu vaccine this season?: Yes Other Medical History: Reports: Chemotherapy, Radiation Therapy Laterality Cases: Left: Arthroscopy Knee Other Surgeries: Yes: Cardiac Catheterization, Cholecystectomy, Coronary Stent, Other Amputation: No Fractures: No - *Social History Educational Level: Attended College Smoking Status: Former smoker #Yrs smoked (if former smoker): 30 Alcohol Intake: never Substance Use Type: denies use *Occupational Status:: retired Housing: house Household Members: spouse *Travel in the last 8 weeks: None - Psychiatric History Expresses thoughts of harming self/others: None Suicide Plan Description: No Plan Family Hx:: Cancer Review of Systems - Review of Systems Review of systems:: pertinent systems reviewed and negative unless documented below - Constitutional Denies body ache(s), Denies chills - *Cardiovascular Reports chest pain, Reports chest pain at rest, Reports shortness of breath (From COPD and combination of Brilinta) - *Respiratory Reports shortness of breath, Denies change in phlegm color, Denies chest congestion, Denies cough Exam Vital signs and Labs for Last 24 Hours: Temp Pulse Resp BP Pulse Ox 97.7 F 55 L 13 129/63 96 06/11/18 04:00 06/11/18 04:00 06/11/18 04:00 06/11/18 04:00 06/11/18 04:00 Laboratory Results - last 24 hr 06/10/18 14:26: WBC 7.0, RBC 5.29, Hgb 15.4, Hct 46.3, MCV 87.4, MCH 29.2, MCHC 33.3, RDW 14.0, Plt Count 184, MPV 7.6, Neut % (Auto) 64.7, Lymph % (Auto) 26.9, [place] % (Auto) 5.6, Eos % (Auto) 2.2, Baso % (Auto) 0.6, Neut # (Auto) 4.6, Lymph # (Auto) 1.9, [place] # (Auto) 0.4, Eos # (Auto) 0.2, Baso # (Auto) 0.0 06/10/18 14:26: Sodium 143, Potassium 3.9, Chloride 105, Carbon Dioxide 29, Anion Gap 12.9, BUN 12, Creatinine 1.07, Estimated Creat Clear 66, Estimated GFR 68, Est GFR ( Amer) 83, Glucose 61 L, Calcium 9.4, Troponin I < 0.02, Amylase 41 06/10/18 14:26: Lipase 92 06/10/18 18:45: Troponin I < 0.02 06/10/18 21:40: Troponin I < 0.02 I & O for Last 24 hours: Intake & Output 06/08/18 06/09/18 06/10/18 06/11/18 11:59 11:59 11:59 11:59 Weight 162 lb 7 oz - Constitutional no acute distress - *Routine Neck Exam Present: supple. Absent: JVD, carotid bruit - *Routine Respiratory Exam Present: CTA bilaterally. Absent: rhonchi, wheezes - *Routine Cardiovascular Exam Present: RRR, Normal S1, Normal S2 - *Routine Abdominal Exam Present: soft, normoactive bowel sounds. Absent: tenderness - *Routine Extremities Exam Present: full ROM, pulses intact. Absent: edema Hospital Course Hospital Course: Patient ruled out for SC overnight. The following morning he underwent repeat cardiac catheterization due to ongoing chest pain similar to his previous angina albeit described as more intense. Patient had patent stents and no new obstructive disease. After cardiac catheterization patient was discharged home later in the day and will begin Ranexa. Results Labs on day of discharge: Labs from last 24 hours 06/10/18 06/10/18 06/10/18 21:40 18:45 14:26 WBC RBC Hgb Hct MCV MCH MCHC RDW Plt Count MPV Neut % (Auto) Lymph % (Auto) [place] % (Auto) Eos % (Auto) Baso % (Auto) Neut # (Auto) Lymph # (Auto) [place] # (Auto) Eos # (Auto) Baso # (Auto) Sodium Potassium Chloride Carbon Dioxide Anion Gap BUN Creatinine Estimated Creat Clear Estimated GFR Est GFR ( Amer) Glucose Calcium Troponin I < 0.02 < 0.02 Amylase Lipase 92 06/10/18 06/10/18 14:26 14:26 WBC 7.0 RBC 5.29 Hgb 15.4 Hct 46.3 MCV 87.4 MCH 29.2 MCHC 33.3 RDW 14.0 Plt Count 184 MPV 7.6 Neut % (Auto) 64.7 Lymph % (Auto) 26.9 [place] % (Auto) 5.6 Eos % (Auto) 2.2 Baso % (Auto) 0.6 Neut # (Auto) 4.6 Lymph # (Auto) 1.9 [place] # (Auto) 0.4 Eos # (Auto) 0.2 Baso # (Auto) 0.0 Sodium 143 Potassium 3.9 Chloride 105 Carbon Dioxide 29 Anion Gap 12.9 BUN 12 Creatinine 1.07 Estimated Creat Clear 66 Estimated GFR 68 Est GFR ( Amer) 83 Glucose 61 L Calcium 9.4 Troponin I < 0.02 Amylase 41 Lipase DS: Diagnosis - Discharge Diagnosis (1) Precordial chest pain Status: Acute (2) Former smoker Status: Acute (3) CAD (coronary artery disease) Status: Chronic (4) HHD (hypertensive heart disease) Status: Chronic (5) HLD (hyperlipidemia) Status: Chronic (6) History of lung cancer Status: Chronic Discharge Medications - Medications for Discharge Home Medication List at Discharge: New Ranolazine [Ranexa] 1,000 mg PO BID #60 tab.er.12h Continued finasteride 5 mg tablet 5 mg PO DAILY aspirin 81 mg tablet,delayed release 81 mg PO DAILY Metoprolol Tartrate [Lopressor 25mg tablet] 12.5 mg PO BID Lisinopril [Prinivil 5mg Tablet] 5 mg PO DAILY Lactobacillus Acidophilus [Acidophilus] 1 each PO DAILY Simvastatin 20 mg PO HS Clopidogrel Bisulfate [Plavix 75mg Tab] 75 mg PO DAILY Disposition Disposition: Home, Self-Care
--- NOTE | 2018-06-11 07:38 | Pharmacy Consult Notes ---
[facility] Pharmacy VTE Monitoring - Patient Demographics Admission date: 06/10/18 Report Date: 06/11/18 Time: 07:38 Allergies/Adverse Reactions: Patient Allergies No Known Allergies Allergy (Verified 06/07/18 10:35) Height: 1.73 m Weight: 73.68 kg Patient Problems: Current Active Problems (Updated 06/11/18 @ 07:32 by Lakhwinder Link MD) Precordial chest pain (Acute) - VTE Risk Labs: VTE Related Lab Results Hgb 15.4 g/dL (14.1-18.0) 06/10/18 14:26 Hct 46.3 % (42.0-52.0) 06/10/18 14:26 Plt Count 184 K/mm3 (142-424) 06/10/18 14:26 BUN 12 mg/dL (7-18) 06/10/18 14:26 Creatinine 1.07 mg/dL (0.70-1.30) 06/10/18 14:26 Estimated Creat Clear 66 mL/min (50-200) 06/10/18 14:26 Was VTE Risk Assessment Performed: Yes VTE Score: 1 VTE Risk Level: Low Risk Clinical Trial Participant: No - Prophylaxis VTE Prophylaxis Ordered?: Yes Types of VTE Prophylaxis: TEDS Knee High
--- NOTE | 2018-06-11 08:53 | Consult Report ---
History of Present Illness Consult date: 06/11/18 Requesting physician: Lakhwinder Link Consult reason: chest pain Chief complaint: chest pain Additional Medical History:: 1. Coronary artery disease A. [facility], 05/2018, ANGIOGRAPHIC RESULTS: 1. The left main artery has a distal 20-30% stenosis 2. The left anterior descending artery has an ostial 50% stenosis followed by a proximal 40% stenosis followed by an 80-90% stenosis immediately distal to the first septal sharepoint solutions developer and diagonal artery. The remaining vessel is widely patent with minimal stenoses less than 10% 3. The circumflex artery is a nondominant vessel and has mild 10% luminal irregularities 4. The right coronary artery is a large dominant vessel and has proximal 80- 90% stenosis with 70-80% mid vessel stenoses. Distally there are 30% stenoses 5. The JUNIOR ventriculogram reveals normal 65% 6. The left ventricular end-diastolic pressure 10 mmHg IMPRESSION: 1. Successful stenting of the left main artery, severe disease reduced to 0% with 1 drug-eluting stent 2. Successful stenting of the ostial proximal LAD, severe disease reduced to 0% with 2 drug-eluting stents as described above 3. Successful stenting of the proximal to mid dominant right coronary artery, severe disease reduced to 0% with 2 contiguous drug-eluting stents as described above 4. Normal ejection fraction 5. Normal left ventricular end-diastolic pressure PLAN: 1. Brilinta and aspirin 2. LDL less than 55 3. Risk factor modification 4. Cardiac rehabilitation 5. Continued surveillance of patient's known lung cancer per oncology service 6. Avoidance of tobacco products 2. History of lung cancer in 2014, 30 radiation treatments to the chest wall and [address] scan of the chest every 6 months B. Former smoker 3. Peripheral artery disease with history of stenting in both legs by Dr. Carlo Worthy several years ago 4. Hyperlipidemia History of present illness: 72-year-old male with recent stenting from obstructive coronary artery disease presented to the emergency department yesterday with chest pain radiating into the left shoulder. Patient reports yesterday morning experiencing onset of a "chest heaviness". Chest heaviness was intermittent and lasted throughout the morning and into the afternoon. However in the afternoon the discomfort change from a heaviness to a sharp stabbing pain that radiated into the left shoulder. Patient became concerned. He also admits to facial flushing and may be mild increase in baseline dyspnea with the chest pain. The chest pain he experienced yesterday afternoon was more intense than any pain he experienced prior to coronary artery stenting. In the emergency department he was given nitroglycerin with resolution of the pain. ER physician spoke with Dr. Gaffney who recommended admission for rule out of WI with serial cardiac enzymes. Patient is ruled out for WI overnight. He was started on Ranexa 1000 mg twice daily yesterday evening per Dr. Gaffney's orders The above per Dr. Link Patient confirms that the symptoms he had yesterday were the same as he had prior to his recent stenting. Cardiac enzymes normal overnight. EKG is sinus with no acute ST segment changes. [facility] History Medical History: Reports:: BPH, Cancer, Chronic Obstructive Pulmonary Disease (COPD), Coronary Artery Disease, Hyperlipidemia, Hypertension, Peripheral Artery Disease Denies:: Diabetes Mellitus Type 1, Diabetes Mellitus Type 2, MRSA *Have you ever received a pneumonia vaccine?: Yes *Have you received a flu vaccine this season?: Yes Other Medical History: Reports: Chemotherapy, Radiation Therapy Laterality Cases: Left: Arthroscopy Knee Other Surgeries: Yes: Cardiac Catheterization, Cholecystectomy, Coronary Stent, Other Amputation: No Fractures: No - *Social History Educational Level: Attended College Smoking Status: Former smoker #Yrs smoked (if former smoker): 30 Alcohol Intake: never Substance Use Type: denies use *Occupational Status:: retired Housing: house Household Members: spouse *Travel in the last 8 weeks: None - Psychiatric History Expresses thoughts of harming self/others: None Suicide Plan Description: No Plan Family Hx:: Cancer Meds Home Medications Medication Instructions Recorded Confirmed Type Lactobacillus Acidophilus 1 each PO DAILY 05/17/18 06/10/18 History [Acidophilus] aspirin 81 mg tablet,delayed 81 mg PO DAILY 05/17/18 06/10/18 History release finasteride 5 mg tablet 5 mg PO DAILY 05/17/18 06/10/18 History Simvastatin 20 mg PO HS 05/18/18 06/10/18 History Clopidogrel Bisulfate [Plavix 75mg 75 mg PO DAILY 06/10/18 06/10/18 History Tab] Lisinopril [Prinivil 5mg Tablet] 5 mg PO DAILY 06/10/18 06/10/18 History Metoprolol Tartrate [Lopressor 12.5 mg PO BID 06/10/18 06/10/18 History 25mg tablet] Ticagrelor [Brilinta 90mg Tablet] 90 mg PO BID 06/11/18 06/11/18 History Allergies Allergy/AdvReac Type Severity Reaction Status Date / Time No Known Allergies Allergy Verified 06/07/18 10:35 Review of Systems - *Cardiovascular Reports chest pain, Reports shortness of breath with activity - *Respiratory Reports shortness of breath with activity, Denies cough - *Gastrointestinal Denies abdominal pain, Denies loose stools - *Genitourinary Denies blood in urine - *Musculoskeletal Denies joint pain, Denies back pain - *Neurologic Denies confusion, Denies loss of vision Exam Vital signs and Labs for Last 24 Hours: Temp Pulse Resp BP Pulse Ox 97.7 F 55 L 13 129/63 96 06/11/18 04:00 06/11/18 04:00 06/11/18 04:00 06/11/18 04:00 06/11/18 04:00 Laboratory Results - last 24 hr 06/10/18 14:26: WBC 7.0, RBC 5.29, Hgb 15.4, Hct 46.3, MCV 87.4, MCH 29.2, MCHC 33.3, RDW 14.0, Plt Count 184, MPV 7.6, Neut % (Auto) 64.7, Lymph % (Auto) 26.9, Reynolds % (Auto) 5.6, Eos % (Auto) 2.2, Baso % (Auto) 0.6, Neut # (Auto) 4.6, Lymph # (Auto) 1.9, Reynolds # (Auto) 0.4, Eos # (Auto) 0.2, Baso # (Auto) 0.0 06/10/18 14:26: Sodium 143, Potassium 3.9, Chloride 105, Carbon Dioxide 29, Anion Gap 12.9, BUN 12, Creatinine 1.07, Estimated Creat Clear 66, Estimated GFR 68, Est GFR ( Amer) 83, Glucose 61 L, Calcium 9.4, Troponin I < 0.02, Amylase 41 06/10/18 14:26: Lipase 92 06/10/18 18:45: Troponin I < 0.02 06/10/18 21:40: Troponin I < 0.02 I & O for Last 24 hours: Intake & Output 06/08/18 06/09/18 06/10/18 06/11/18 11:59 11:59 11:59 11:59 Weight 162 lb 7 oz - *Routine HEENT Exam Head: Present: normocephalic Eye: Present: EOMI, PERRL ENT: Present: mucous membranes moist - *Routine Neck Exam Present: supple. Absent: JVD, carotid bruit - *Routine Respiratory Exam Present: CTA bilaterally. Absent: accessory muscle use, rales, rhonchi, wheezes - *Routine Cardiovascular Exam Present: RRR. Absent: murmur, gallop, rubs - *Routine Abdominal Exam Present: soft. Absent: tenderness, distended, guarding - *Routine Extremities Exam Absent: edema, calf tenderness - *Routine Neurological Exam Present: alert, oriented X3, moving all extremities Assessment and Plan (1) Precordial chest pain Current visit: Yes Status: Acute Category: Medical Code(s): R07.2 - Precordial pain (2) Former smoker Current visit: No Status: Acute Category: Social Hx Code(s): Z87.891 - Personal history of nicotine dependence (3) CAD (coronary artery disease) Current visit: No Status: Chronic Qualifiers: Coronary Disease-Associated Artery/Lesion type: [place] artery [place] vs. transplanted heart: [place] heart Associated angina: without angina Qualified Code(s): I25.10 - Atherosclerotic heart disease of [place] coronary artery without angina pectoris Category: Medical Code(s): I25.10 - Atherosclerotic heart disease of [place] coronary artery without angina pectoris (4) HHD (hypertensive heart disease) Current visit: No Status: Chronic Qualifiers: Heart failure presence: without heart failure Qualified Code(s): I11.9 - Hypertensive heart disease without heart failure Category: Medical Code(s): I11.9 - Hypertensive heart disease without heart failure (5) HLD (hyperlipidemia) Current visit: No Status: Chronic Qualifiers: Hyperlipidemia type: mixed hyperlipidemia Qualified Code(s): E78.2 - Mixed hyperlipidemia Category: Medical Code(s): E78.5 - Hyperlipidemia, unspecified (6) History of lung cancer Current visit: No Status: Chronic Category: Medical Code(s): Z85.118 - Personal history of other malignant neoplasm of bronchus and lung - Assessment and plan all Dx Assessment and Plan for all problems:: 1. In light of the recurrent angina symptoms and recent extensive coronary stenting of the left main and LAD, would recommend proceeding with left heart catheterization to reevaluate coronary artery disease. 2. Continue aspirin and Plavix (Brilinta was recently stopped as a possible etiology for the patient's shortness of breath.) 3. Further recommendations to follow pending above results
== END 2018-06-11 17:30 | disposition home or self-care (01) ==
LOC: 2ND 14:21 → ER 14:21 → 2ND 16:49
PROVIDERS: ADMIT Family Medicine; ATTEND Family Medicine
CPT/HCPCS: 36415; 71010; 71045; 80048; 82150; 83690; 84484; 85025; 93005; 93458; 99152; 99284; C1725; C1769; G0378; J1644; Q9967

== ENCOUNTER 2018-06-25 10:05 | Outpatient (CLI) | payer MEDICARE, SELFPAY ==
[2018-06-25 10:14] VITALS: BP 112/71; PULSE 69; RESP 18; TEMP 36.7; O2SAT 98
== END 2018-06-25 10:40 | disposition home or self-care (01) ==
LOC: INF 10:08
PROVIDERS: Visit Provider Nurse Practitioner Family
DX: M85.89 Other specified disorders of bone density and structure, multiple sites (principal)
CPT/HCPCS: 96372; J0897

== ENCOUNTER → 2018-08-13 08:03 | Outpatient (CLI) | payer MEDICARE, SELFPAY ==
[2018-08-13 11:11] LABS: Alanine Aminotransferase 18 U/L (12-78); Albumin Level 3.4 gm/dL (3.4-5.0); Alkaline Phosphatase 75 U/L (46-116); Aspartate Amino Transferase 11 U/L (15-37); Bilirubin,Direct 0.1 mg/dL (0.0-0.2); Bilirubin,Indirect 0.4 mg/dL (0.0-0.9); Bilirubin,Total 0.5 mg/dL (0.2-1.0); Chol/HDL Ratio 3.8 (1-3.5); Cholesterol 142 mg/dL (140-200); HDL Cholesterol 37 mg/dL (27-67); LDL Cholesterol 79 mg/dL (0-130); Total Protein,Serum 6.3 gm/dL (6.4-8.2); Triglycerides 128 mg/dL (30-200); VLDL Cholesterol 26 mg/dL (0-40)
== END ==
PROVIDERS: Visit Provider Nurse Practitioner Family
DX: E78.2 Mixed hyperlipidemia (principal)
CPT/HCPCS: 36415; 80061; 80076

== ENCOUNTER 2018-12-26 10:07 | Outpatient (CLI) | payer MEDICARE, SELFPAY ==
[2018-12-26 10:09] VITALS: BP 103/66; PULSE 78; RESP 18; TEMP 36.6; O2SAT 98
== END 2018-12-26 10:42 | disposition home or self-care (01) ==
LOC: INF 10:07
PROVIDERS: Visit Provider Nurse Practitioner Family
DX: M85.89 Other specified disorders of bone density and structure, multiple sites (principal)
CPT/HCPCS: 96372; J0897

== ENCOUNTER → 2019-06-03 07:46 | Outpatient (CLI) | payer MEDICARE, SELFPAY ==
[2019-06-04 08:49] LABS: Covid-19 Nasal PCR Sendout Lex NOT DETECTED
--- NOTE | 2019-06-04 09:37 | PC.NURSE ---
pt and notified of negative COVID 19 results.
== END ==
PROVIDERS: Visit Provider Family Medicine
DX: Z03.818 Encounter for observation for suspected exposure to other biological agents ruled out (principal)
CPT/HCPCS: U0003

== ENCOUNTER → 2019-06-13 10:39 | Outpatient (CLI) | payer MEDICARE, SELFPAY ==
--- NOTE | 2019-06-13 10:41 | CA_ITS ---
APPROVED REPORT EXAM: Comprehensive 2D, Doppler, and color-flow Echocardiogram Survey Technician: Magy Duran RVT Ht: 5 ft 8 in Wt: 162lbs BSA: 1.87 BP: 114/81 mmHg Indications: ANGINA,DONOHUE,CAD,EX SMOKER,HTN,HLD,HX LUNG CA,COPD 2D Dimensions LVOT 1.98 cm (M/F) 1.5-2.5 M-Mode Dimensions RVDd 2.29 cm (0.9-2.6) LVDd 3.49 cm (3.5-5.7) LVDs 2.29 cm (3.5-5.7) IVSd 1.33 cm (0.6-1.1) PWd 0.88 cm (0.6-1.1) EF (Teich) 64.60% FS 34.40% EDV (Teich) 50.50 mL ESV (Teich) 17.90 mL LV Diastology E/A Ratio 0.72 Mitral Valve MV A Velocity 58.00 (40-130 cm/s) Left Ventricle Left atrium is mildly enlarged, left ventricle is normal size, mild concentric left ventricular hypertrophy, visually estimated ejection fraction 55% with no regional wall motion abnormality, grade 1 diastolic dysfunction seen without tissue Doppler evidence of raise left atrial pressure. Right Ventricle Right atrium and right ventricular normal size and contractility. Aortic Valve Aortic valve is minimally thickened and fibrosed, there is no aortic stenosis or aortic insufficiency. Mitral Valve Mitral valve is grossly normal, there is mild mitral regurgitation. Tricuspid Valve Tricuspid valve grossly normal, there is mild tricuspid regurgitation, tricuspid regurgitation jet velocity is inadequate for calculation of the right ventricular systolic pressure. Pulmonic Valve Mitral valve is poorly visualized. Great Vessels Aortic root is normal size. Pericardium Trivial pericardial effusion noted. Conclusion 1. Mildly enlarged left atrium, normal left ventricular size, mild concentric left ventricular hypertrophy, visually estimated ejection fraction 55% with no regional wall motion abnormality, grade 1 diastolic dysfunction seen without tissue Doppler evidence of raise left atrial pressure. 2. Mild mitral and tricuspid regurgitation. 3. Trivial pericardial effusion noted. Electronically signed by : Judah Diaz, 06/13/2019 15:46:43
== END ==
PROVIDERS: PCP Family Medicine; Visit Provider Internal Medicine Cardiovascular Disease
DX: E78.5 Hyperlipidemia, unspecified (principal); I11.9 Hypertensive heart disease without heart failure; I20.0 Unstable angina; R06.00 Dyspnea, unspecified; Z85.118 Personal history of other malignant neoplasm of bronchus and lung; Z87.891 Personal history of nicotine dependence
CPT/HCPCS: 93306

== ENCOUNTER 2019-06-14 07:54 | Day surgery (SDC) | payer MEDICARE, SELFPAY ==
[2019-06-14] VITALS (11 sets, daily range): BP systolic 90–153; BP diastolic 50–91; PULSE 60–83; RESP 14–20; O2SAT 91–100; BMI 24.0
[2019-06-14 08:29] LABS: Basophils # 0.1 K/mm3 (0-0.2); Basophils % 0.9 % (0.1-2.0); Eosinophils # 0.1 K/mm3 (0.0-0.4); Eosinophils % 1.6 % (0.1-12.0); Hematocrit 48.8 % (42.0-52.0); Hemoglobin 15.5 g/dL (14.1-18.0); Lymphocytes # 1.4 K/mm3 (0.7-4.5); Lymphocytes % 20.1 % (10-50); Mean Corpuscular HGB Conc 31.7 g/dL (31.8-35.4); Mean Corpuscular Hemoglobin 29.2 pg (27.0-31.2); Mean Corpuscular Volume 92.2 fl (80-94); Monocytes # 0.4 K/mm3 (0.1-1.0); Neutrophils % 71.5 % (37.0-80.0); Platelet Count 204 K/mm3 (142-424); Red Cell Distribution Width 13.8 % (11.5-17.5)
[2019-06-14 08:43] LABS: Chloride 104 mmol/L (98-107); Sodium 139 mmol/L (136-145)
[2019-06-14 08:44] LABS: Potassium 4.4 mmoL/L (3.5-5.1)
[2019-06-14 08:46] LABS: Blood Urea Nitrogen 13 mg/dl (9-20); Creatinine Clearance Estimated 69 mL/min (50-200); Estimated Glomerular Filt Rate 74 ml/min (>60); GFR (African American) 89 ML/MIN (>60)
[2019-06-14 08:47] LABS: Anion Gap 9.4 mEq/L (5-15); Calcium 9.9 mg/dl (8.4-10.2); Carbon Dioxide 30 mmol/L (22.0-30.0); Glucose 103 mg/dl (74-100)
--- NOTE | 2019-06-14 11:15 | IR_ITS ---
APPROVED REPORT Patient Location: Outpatient Vegetable Cutter: JASEN Owens RT (R) PROCEDURES Left heart catheterization Left ventriculogram Selective coronary angiogram Drug-eluting stent deployment in the ostial proximal mid distal left main artery Drug-eluting stent deployment to the proximal mid LAD INDICATION Coronary artery disease, Angina pectoris class IV, History of radiation to the chest/mediastinum secondary to malignancy Informed consent was obtained prior to the procedure. COMPLICATIONS NONE Estimated Blood Loss: LESS THAN 10 ML TECHNIQUE One percent lidocaine used to anesthetize the right anterior aspect of the wrist. The right radial artery was accessed via the Seldinger technique. A 6 Czech sheath was placed in the right radial artery. 2.5 mg of verapamil, 800 mcg of nitroglycerin, 1mg Lidocaine and 5000 U Heparin were given through the arterial sheath. The trap catheter was also used to perform left heart catheterization, left ventriculogram and selective coronary angiogram. At the end of the diagnostic angiogram therapeutic heparin was administered and and I Miri left guide catheter was used to intubate the left main artery. A BMW wire was used to traverse the stenosis in the LAD. A 3.5 x 38 mm Xience stent was placed in the ostial segment of the left main artery and deployed at 20 nery. The distal stent did extend into the proximal LAD. An additional 3.5 x 12 mm Xience stent was deployed at 20 nery distal to the first stent in the mid LAD further reducing the stenosis. A 4 mm x 12 mm noncompliant balloon was then deployed at 20 nery in the proximal LAD 24 nery throughout the left main artery. The balloon was deployed again further down the LAD at 20 nery. After achieving excellent angiographic results the apparatus was removed the sheath was removed good hemostasis was achieved using TR banding patient was transferred to the postop holding her in stable condition. Due to patient's history of XRT to the mediastinum along with LAD and left main disease it was felt stenting would be patient's best revascularization option at this time. YEVGENIY II flow was present down the LAD at the beginning of the procedure with YEVGENIY-3 flow at the end of the procedure ANGIOGRAPHIC RESULTS The left main artery Has an ostial 50% stenosis with a distal 30% stenosis. The left anterior descending artery Has a stent in the ostial segment which has concentric 90% in-stent restenosis followed by 50% in-stent restenosis within the distal portion of the stent The circumflex artery Is a nondominant vessel and has an ostial 30% stenosis. This gives rise to a large obtuse marginal artery which has a mid vessel 30 to 40% stenosis The right coronary artery Is a large dominant vessel and has proximal and mid vessel diffuse 30% stenosis with a distal 30 to 40% stenosis The JUNIOR ventriculogram reveals Normal 65% The left ventricular end-diastolic pressure 10 mmHg IMPRESSION Coronary disease as described above Successful stenting of the ostial proximal mid distal left main artery Successful stenting of the ostial proximal mid LAD reducing the severe stenosis to 0% Persistent mild to moderate stenosis in the circumflex artery Persistent mild to moderate stenosis in the right coronary Normal ejection fraction Normal left ventricular end-diastolic pressure PLAN 1. Plavix and aspirin 2. LDL less than 55 3. Cardiac rehabilitation 4. Avoidance of tobacco products 5. Standard therapy for ischemic heart disease Electronically signed by : Carl Gaffney, 06/14/2019 11:44:39
--- NOTE | 2019-06-14 11:52 | HMH.PHACLD ---
Carlo Noriega has received discharge medication counseling on the following medications: CONTINUE MEDICATIONS: PLAVIX, ASPIRIN, LISINOPRIL, LIPITOR PATIENT IS NOT STARTING ON A BETA CAROLYN AT THIS TIME DUE TO LOW HR. DOCUMENTED ON CHECKLIST.
[2019-06-14 13:48] LABS: CATHL Activated Clotting Time 332 SEC (74-125)
== END 2019-06-14 14:17 | disposition home or self-care (01) ==
LOC: CATHLAB 07:57
PROVIDERS: PCP Family Medicine; Visit Provider Internal Medicine
DX: E78.5 Hyperlipidemia, unspecified (principal); I11.9 Hypertensive heart disease without heart failure; Z85.118 Personal history of other malignant neoplasm of bronchus and lung; I25.110 Atherosclerotic heart disease of native coronary artery with unstable angina pectoris; Z79.02 Long term (current) use of antithrombotics/antiplatelets; Z79.82 Long term (current) use of aspirin; Z79.899 Other long term (current) drug therapy; Z87.891 Personal history of nicotine dependence
CPT/HCPCS: 80048; 85025; 85347; 92928; 93458; 99152; 99153; C1725; C1769; C1876; C9600; J1644; Q9967

== ENCOUNTER 2019-06-26 10:25 | Outpatient (CLI) | payer MEDICARE, SELFPAY ==
[2019-06-26 08:55] LABS: Basophils # 0.1 K/mm3 (0-0.2); Basophils % 0.8 % (0.1-2.0); Eosinophils # 0.2 K/mm3 (0.0-0.4); Eosinophils % 2.2 % (0.1-12.0); Hematocrit 47.3 % (42.0-52.0); Hemoglobin 14.8 g/dL (14.1-18.0); Lymphocytes # 1.6 K/mm3 (0.7-4.5); Lymphocytes % 23.2 % (10-50); Mean Corpuscular HGB Conc 31.3 g/dL (31.8-35.4); Mean Corpuscular Volume 92.7 fl (80-94); Mean Platelet Volume 7.7 fl (7.4-10.4); Monocytes # 0.4 K/mm3 (0.1-1.0); Monocytes % 6.1 % (1.7-9.3); Neutrophils # 4.7 K/mm3 (1.8-7.8); Neutrophils % 67.6 % (37.0-80.0); Platelet Count 199 K/mm3 (142-424); Red Cell Distribution Width 13.8 % (11.5-17.5); White Blood Count 6.9 K/mm3 (4.8-10.8)
[2019-06-26 08:57] LABS: Chloride 105 mmol/L (98-107); Sodium 138 mmol/L (136-145)
[2019-06-26 08:58] LABS: Potassium 4.5 mmoL/L (3.5-5.1)
[2019-06-26 09:00] LABS: Blood Urea Nitrogen 14 mg/dl (9-20); Estimated Glomerular Filt Rate 74 ml/min (>60); GFR (African American) 89 ML/MIN (>60)
[2019-06-26 09:01] LABS: Anion Gap 9.5 mEq/L (5-15); Calcium 9.5 mg/dl (8.4-10.2); Carbon Dioxide 28 mmol/L (22.0-30.0); Glucose 105 mg/dl (74-100)
[2019-06-26 10:40] VITALS: BP 125/73; PULSE 70; RESP 18; TEMP 36.6; O2SAT 98
== END 2019-06-26 10:55 | disposition home or self-care (01) ==
LOC: INF 10:30
PROVIDERS: Internal Medicine Cardiovascular Disease; PCP Nurse Practitioner Family; Visit Provider Nurse Practitioner Family
DX: M85.89 Other specified disorders of bone density and structure, multiple sites (principal); Z95.5 Presence of coronary angioplasty implant and graft
CPT/HCPCS: 36415; 80048; 85025; 96372; J0897

== ENCOUNTER 2019-07-02 09:52 | Outpatient (RCR) | payer MEDICARE, SELFPAY | END 2019-09-09 11:18 | disposition home or self-care (01) | LOC: PT 09:52 | PROVIDERS: Visit Provider Internal Medicine | DX: Z95.5 Presence of coronary angioplasty implant and graft (principal) ==

== ENCOUNTER 2019-07-05 08:55 | Day surgery (SDC) | payer MEDICARE, SELFPAY ==
[2019-07-05] VITALS (11 sets, daily range): BP systolic 105–158; BP diastolic 57–86; PULSE 63–74; RESP 16–20; TEMP 36.6; O2SAT 92–100; BMI 24.7
--- NOTE | 2019-07-05 | IR_ITS ---
APPROVED REPORT Patient Location: Outpatient PROCEDURES Left heart catheterization Left ventriculogram Selective coronary angiogram Drug-eluting stent deployment to the ostial proximal circumflex artery INDICATION Recalcitrant class IV angina pectoris, Coronary artery disease Informed consent was obtained prior to the procedure. COMPLICATIONS NONE Estimated Blood Loss: LESS THAN 10 ML TECHNIQUE 1% lidocaine used anesthetize the right groin the right femoral artery was accessed via the Salinger technique and a 4 Cambodian sheath was placed in the right femoral artery. A JL4 catheter was used to perform left coronary angiography. Following this the 4 Cambodian sheath was exchanged for a 6 Cambodian sheath and therapeutic heparin was administered. An EBU 3.75 guide catheter was used to intubate the left main artery and a Choice PT extra-support wire was placed in the circumflex artery where a 2 mm x 12 mm balloon was deployed at 15 nery to predilate the stenosis. This was followed by a 2.25 x 26 mm resolute tru stent deployed at 20 nery reducing the severe to critical stenosis to 0%. An additional 2.25 x 8 mm resolute tru stent was placed distal to this and an additional stenosis and deployed at 15 nery. YEVGENIY-3 flow was present before and after the procedure. After achieving excellent angiographic results a JR4 catheter was used to perform right coronary angiography left heart catheterization and left ventriculogram. At the end of the procedure the apparatus was removed the groin was reprepped gloves were changed sheath was removed good hemostasis was achieved using Perclose device patient was transferred to the postop holding in stable condition ANGIOGRAPHIC RESULTS The left main artery Has a stent in the ostial segment which extends into the proximal to mid LAD. The stent is widely patent with excellent proximal and distal transitioning. The left anterior descending artery Has a stent originating off the left main artery which is widely patent. There is nice transitioning of the distal aspect of the stent into the havasupai vessel The circumflex artery Is nondominant and has an ostial greater than 70% stenosis followed by 90% stenosis in the proximal large first obtuse marginal artery followed by an additional 60% mid vessel stenosis The right coronary artery Is a dominant vessel and has a stent in the ostial proximal mid segment which is widely patent free of in-stent restenosis with excellent proximal distal transitioning. Distally there are 40% tandem stenoses. There are 30% stenoses in the posterior descending artery The JUNIOR ventriculogram reveals Hyperdynamic at 75% The left ventricular end-diastolic pressure 20 to 25 mmHg IMPRESSION Severe stenosis in the circumflex artery as described above with successful stenting of the ostial circumflex artery extending into the large first obtuse marginal artery Mild to moderate disease in the distal dominant right coronary artery which is unlikely to produce symptoms Hyperdynamic ventricle consistent with diastolic dysfunction combined with elevated left ventricular end-diastolic pressure which is likely contributing to patient's angina pectoris PLAN 1. Dual antiplatelet therapy with Plavix and aspirin 2. Patient would benefit from negative inotropes such as verapamil or diltiazem possibly combined with beta-blockers 3. Low-dose loop diuretics in order to decrease LVEDP 4. Avoidance of tobacco products 5. Risk factor modification 6. Cardiac rehabilitation Electronically signed by : Calr Gaffney, 07/05/2019 12:51:15
[2019-07-05 09:41] LABS: Basophils # 0.1 K/mm3 (0-0.2); Basophils % 1.1 % (0.1-2.0); Eosinophils # 0.2 K/mm3 (0.0-0.4); Eosinophils % 2.1 % (0.1-12.0); Hematocrit 47.1 % (42.0-52.0); Hemoglobin 15.4 g/dL (14.1-18.0); Lymphocytes # 1.6 K/mm3 (0.7-4.5); Lymphocytes % 22.4 % (10-50); Mean Corpuscular HGB Conc 32.8 g/dL (31.8-35.4); Mean Corpuscular Hemoglobin 29.4 pg (27.0-31.2); Mean Corpuscular Volume 89.5 fl (80-94); Mean Platelet Volume 7.6 fl (7.4-10.4); Monocytes # 0.5 K/mm3 (0.1-1.0); Monocytes % 6.5 % (1.7-9.3); Neutrophils # 4.8 K/mm3 (1.8-7.8); Platelet Count 192 K/mm3 (142-424); Red Blood Count 5.26 M/mm3 (4.60-6.20); White Blood Count 7.1 K/mm3 (4.8-10.8)
[2019-07-05 09:45] LABS: Anion Gap 10.4 mEq/L (5-15); Blood Urea Nitrogen 13 mg/dl (9-20); Calcium 10.4 mg/dl (8.4-10.2); Carbon Dioxide 29 mmol/L (22.0-30.0); Chloride 104 mmol/L (98-107); Creatinine Clearance Estimated 71 mL/min (50-200); Estimated Glomerular Filt Rate 74 ml/min (>60); GFR (African American) 89 ML/MIN (>60); Glucose 103 mg/dl (74-100); Potassium 4.4 mmoL/L (3.5-5.1); Sodium 139 mmol/L (136-145)
[2019-07-05 13:34] LABS: CATHL Activated Clotting Time > 400 SEC (74-125)
--- NOTE | 2019-07-05 16:09 | HMH.PHACLD ---
Carlo Noriega has received discharge medication counseling on the following medications: MD STARTING LASIX 20 MG DAILY, ALDACTONE 25 MG DAILY, AND DILTIAZEM 180 MG DAILY. STOPPING LISINOPRIL. PATIENT ALREADY TAKING LIPITOR 40 MG HS , ASPIRIN 81 MG HS, PLAVIX 75 MG HS, AND BISOPROLOL 5 MG HS.
== END 2019-07-05 15:18 | disposition home or self-care (01) ==
LOC: CATHLAB 08:56
PROVIDERS: PCP Family Medicine; Visit Provider Internal Medicine
DX: I25.110 Atherosclerotic heart disease of native coronary artery with unstable angina pectoris (principal); I11.0 Hypertensive heart disease with heart failure; I50.30 Unspecified diastolic (congestive) heart failure; E78.5 Hyperlipidemia, unspecified; Z85.118 Personal history of other malignant neoplasm of bronchus and lung; Z87.891 Personal history of nicotine dependence; Z79.02 Long term (current) use of antithrombotics/antiplatelets; Z79.82 Long term (current) use of aspirin; Z79.899 Other long term (current) drug therapy; Z95.5 Presence of coronary angioplasty implant and graft
CPT/HCPCS: 80048; 85025; 85347; 92928; 93458; 99152; 99153; C1725; C1760; C1769; C1876; C9600; J1644; Q9967

== ENCOUNTER → 2019-07-12 08:06 | Outpatient (CLI) | payer MEDICARE, SELFPAY ==
[2019-07-12 08:20] LABS: Basophils % 0.4 % (0.1-2.0); Eosinophils # 0.2 K/mm3 (0.0-0.4); Eosinophils % 1.8 % (0.1-12.0); Hematocrit 43.5 % (42.0-52.0); Hemoglobin 14.7 g/dL (14.1-18.0); Lymphocytes # 1.9 K/mm3 (0.7-4.5); Lymphocytes % 23.2 % (10-50); Mean Corpuscular HGB Conc 33.9 g/dL (31.8-35.4); Mean Corpuscular Volume 88.5 fl (80-94); Mean Platelet Volume 8.2 fl (7.4-10.4); Monocytes # 0.5 K/mm3 (0.1-1.0); Monocytes % 6.1 % (1.7-9.3); Neutrophils # 5.5 K/mm3 (1.8-7.8); Neutrophils % 68.5 % (37.0-80.0); Platelet Count 222 K/mm3 (142-424); Red Blood Count 4.91 M/mm3 (4.60-6.20); Red Cell Distribution Width 13.6 % (11.5-17.5); White Blood Count 8.1 K/mm3 (4.8-10.8)
[2019-07-12 08:24] LABS: Chloride 103 mmol/L (98-107); Potassium 4.4 mmoL/L (3.5-5.1); Sodium 140 mmol/L (136-145)
[2019-07-12 08:27] LABS: Anion Gap 12.4 mEq/L (5-15); Blood Urea Nitrogen 19 mg/dl (9-20); Carbon Dioxide 29 mmol/L (22.0-30.0); Estimated Glomerular Filt Rate 60 ml/min (>60); GFR (African American) 72 ML/MIN (>60)
[2019-07-12 08:28] LABS: Calcium 9.6 mg/dl (8.4-10.2); Glucose 117 mg/dl (74-100)
== END ==
PROVIDERS: Visit Provider Internal Medicine
DX: I25.118 Atherosclerotic heart disease of native coronary artery with other forms of angina pectoris (principal)
CPT/HCPCS: 36415; 80048; 85025

== ENCOUNTER → 2019-07-26 07:55 | Outpatient (CLI) | payer MEDICARE, SELFPAY ==
[2019-07-26 10:02] LABS: Anion Gap 12.4 mEq/L (5-15); Blood Urea Nitrogen 19 mg/dl (9-20); Calcium 10.8 mg/dl (8.4-10.2); Carbon Dioxide 29 mmol/L (22.0-30.0); Chloride 101 mmol/L (98-107); Estimated Glomerular Filt Rate 54 ml/min (>60); GFR (African American) 66 ML/MIN (>60); Glucose 113 mg/dl (74-100); Potassium 5.4 mmoL/L (3.5-5.1); Sodium 137 mmol/L (136-145)
[2019-07-26 10:09] LABS: NT Pro Brain Natriuretic Pep. 170 pg/mL (0-125)
== END ==
PROVIDERS: Visit Provider Internal Medicine Cardiovascular Disease
DX: E78.5 Hyperlipidemia, unspecified (principal); I11.9 Hypertensive heart disease without heart failure; I25.10 Atherosclerotic heart disease of native coronary artery without angina pectoris; R06.00 Dyspnea, unspecified; Z85.118 Personal history of other malignant neoplasm of bronchus and lung
CPT/HCPCS: 36415; 80048; 83880

== ENCOUNTER → 2019-08-01 09:52 | Outpatient (CLI) | payer MEDICARE, SELFPAY ==
--- NOTE | 2019-08-01 09:53 | CA_ITS ---
APPROVED REPORT Chief Compliance Officer: CT Laterality: Bilateral Indications: dizziness Doppler Spectral Velocity Analysis ECA (R) 81.80/10.20 cm/s ECA (L) 96.80/16.30 cm/s dICA (R) 105.10/35.50 cm/s dICA (L) 73.80/25.30 cm/s Yana (R) 97.40/32.70 cm/s Yana (L) 80.10/30.70 cm/s pICA (R) 55.90/22.30 cm/s pICA (L) 63.30/18.00 cm/s dCCA (R) 58.20/16.50 cm/s dCCA (L) 65.10/18.00 cm/s pCCA (R) 70.00/17.30 cm/s pCCA (L) 79.70/18.80 cm/s Vert (R) 41.70/11.00 cm/s Vert (L) 74.50/23.10 cm/s ICA/CCA 1.80 ICA/CCA 1.20 Findings Duplex evaluation demonstrates stenosis of the right proximal internal carotid artery <20% with PSV <140 cm/sec, EDV <100 cm/sec, and IC/CC Ratio <4.0. Duplex evaluation demonstrates stenosis of the left proximal internal carotid artery <20% with PSV <140 cm/sec, EDV <100 cm/sec, and IC/CC Ratio <4.0. Duplex evaluation demonstrates antegrade flow of the bilateral Vertebral Arteries. Conclusion No increased velocities to suggest hemodynamically significant stenosis in either internal carotid artery. Electronically signed by : Sriram Sharma MD 08/01/2019 15:15:44
== END ==
PROVIDERS: PCP Family Medicine; Visit Provider Urology
DX: E78.2 Mixed hyperlipidemia (principal); I25.110 Atherosclerotic heart disease of native coronary artery with unstable angina pectoris; R06.02 Shortness of breath; R42 Dizziness and giddiness; Z85.118 Personal history of other malignant neoplasm of bronchus and lung; Z87.891 Personal history of nicotine dependence
CPT/HCPCS: 93880

== ENCOUNTER → 2019-12-12 12:06 | Outpatient (CLI) | payer MEDICARE, SELFPAY ==
[2019-12-12 14:02] LABS: Alanine Aminotransferase 14 U/L (12-78); Alkaline Phosphatase 98 U/L (38-126); Anion Gap 10.3 mEq/L (5-15); Aspartate Amino Transferase 21 U/L (17-59); Bilirubin,Direct 0.1 mg/dl (0.0-0.4); Bilirubin,Indirect 0.5 mg/dL (0.0-0.9); Bilirubin,Total 0.6 mg/dl (0.2-1.3); Bilirubin,Unconjugated 0.6 mg/dL (0.0-1.1); Blood Urea Nitrogen 18 mg/dl (9-20); Calcium 10.1 mg/dl (8.4-10.2); Carbon Dioxide 29 mmol/L (22.0-30.0); Chloride 106 mmol/L (98-107); Chol/HDL Ratio 3.3 (1-3.5); Cholesterol 126 mg/dl (140-200); Estimated Glomerular Filt Rate 66 ml/min (>60); GFR (African American) 80 ML/MIN (>60); Glucose 98 mg/dl (74-100); HDL Cholesterol 38 mg/dl (40-60); Potassium 4.3 mmoL/L (3.5-5.1); Sodium 141 mmol/L (136-145); Total Protein,Serum 6.4 g/dl (6.3-8.2); Triglycerides 153 mg/dl (30-150); VLDL Cholesterol 31 mg/dL (0-40)
[2019-12-12 14:12] LABS: Direct LDL Cholesterol 72.78 mg/dL (100-129)
== END ==
PROVIDERS: Visit Provider Physician Assistant
DX: Z79.899 Other long term (current) drug therapy (principal); E87.5 Hyperkalemia; I11.9 Hypertensive heart disease without heart failure; I25.10 Atherosclerotic heart disease of native coronary artery without angina pectoris
CPT/HCPCS: 36415; 80048; 80061; 80076

== ENCOUNTER 2019-12-31 09:43 | Outpatient (CLI) | payer MEDICARE, SELFPAY ==
[2019-12-31 10:03] VITALS: BP 140/79; PULSE 71; RESP 18; TEMP 36.2; O2SAT 97
== END 2019-12-31 10:25 | disposition home or self-care (01) ==
LOC: INF 09:43
PROVIDERS: Visit Provider Nurse Practitioner Family
DX: M85.89 Other specified disorders of bone density and structure, multiple sites (principal)
CPT/HCPCS: 96372; J0897

== ENCOUNTER → 2020-05-20 10:23 | Outpatient (CLI) | payer MEDICARE, SELFPAY ==
--- NOTE | 2020-05-20 10:26 | XR_ITS ---
PROCEDURE: XR DEXA AXIAL SKELETON CLINICAL HISTORY: OSTEOPOROSIS COMPARISON: CR DEXAAX XR DEXA axial skeleton from 06/05/2018 FINDINGS: The right hip BMD is 0.643 with a T-score of -2.1. The left hip BMD is 0.673 with a T-score of -1.9. The lumbar spine BMD is 0.963 with a T-score of -1.2. Previously lowest bone density was in the left femoral neck with a T-score -2.2 IMPRESSION: This patient is considered osteopenic according to the World Health Organization criteria. Bone density is between 10 and 25 percent below young normal. Fracture risk is moderate. Treatment is advised. Based on these results a follow-up exam is recommended in 2 year. Dictated by: Sriram Sharma MD 05/21/2020 10:43 Sriram Sharma MD in OV 05/21/2020 10:43
== END ==
PROVIDERS: PCP Family Medicine; Visit Provider Family Medicine
DX: M81.0 Age-related osteoporosis without current pathological fracture (principal)
CPT/HCPCS: 77080

== ENCOUNTER → 2020-05-28 13:47 | Outpatient (CLI) | payer MEDICARE, SELFPAY | PROVIDERS: PCP Family Medicine; Visit Provider Internal Medicine Cardiovascular Disease | DX: Z20.822 Contact with and (suspected) exposure to COVID-19 (principal) | CPT/HCPCS: U0003 ==

== ENCOUNTER 2020-05-29 08:50 | Day surgery (SDC) | payer MEDICARE, SELFPAY ==
[2020-05-29] VITALS (12 sets, daily range): BP systolic 98–113; BP diastolic 54–69; PULSE 60–68; RESP 12–20; O2SAT 91–97; BMI 25.2
--- NOTE | 2020-05-29 | IR_ITS ---
APPROVED REPORT Patient Location: Outpatient Substitute Bus Driver: JASEN Owens RT (R) PROCEDURES Left heart catheterization Left ventriculogram Selective coronary angiogram Drug-eluting stent deployment to the ostial proximal mid circumflex artery in a contiguous manner Angioplasty to the distal left main extending into the proximal LAD INDICATION Angina pectoris class IV, Coronary disease, In-stent restenosis Informed consent was obtained prior to the procedure. COMPLICATIONS NONE Estimated Blood Loss: LESS THAN 10 ML TECHNIQUE One percent lidocaine used to anesthetize the right anterior aspect of the wrist. The right radial artery was accessed via the Seldinger technique. A 6 [place] sheath was placed in the right radial artery. 2.5 mg of verapamil, 800 mcg of nitroglycerin, 1mg Lidocaine and 5000 U Heparin were given through the arterial sheath. The trap catheter was also used to perform left heart catheterization, left ventriculogram and selective coronary angiogram. At the end of the diagnostic procedure therapeutic heparin was administered giving a therapeutic ACT. Initially an EBU 3.75 guide catheter was used and a Choice PT wire was placed in the circumflex artery and predilated with a 2 mm balloons. After the balloon was removed the access was lost in the left main artery. Given it did not initially fit well anyway a JR 3 guide catheter was placed in the left main artery where a Choice PT wire is placed back in the circumflex artery. A 1.5 mm balloon was used to predilate the stenosis followed by 2.5 mm noncompliant balloon taken to 20 nery. Following this a 2.5 x 38 mm resolute Dmitri stent was deployed at 20 nery reducing the critical and severe stenoses to 0% producing excellent angiographic results. A wire was then placed into the LAD where a 4 mm x 12 mm balloon was deployed at 16 nery to push the struts stents out of the left main artery. A Choice PT wire was placed back into the circumflex artery through the collapsed struts and a 2.5 x 12 mm balloon was taken to 24 nery in the ostial segment of the circumflex artery to post dilate the collapsed struts. After achieving excellent angiographic results the apparatus was removed the sheath was removed and hemostasis was achieved using TR banding patient was transferred to the postop holding her stable condition. YEVGENIY II flow was present at the beginning of the procedure in the circumflex artery with YEVGENIY-3 flow in the circumflex artery at the end of the procedure. YEVGENIY-3 flow remained on the left main artery and LAD. ANGIOGRAPHIC RESULTS The left main artery Has a stent in the proximal segment which is widely patent free of in-stent restenosis with excellent transitioning into the LAD The left anterior descending artery Has a stent originating off the left main artery which is widely patent free of in-stent restenosis in the proximal segment with concentric 20 to 30% in-stent restenosis in the distal portion of the stent. The remaining LAD has mild 20% mid vessel stenosis with a 50% concentric stenosis in the distal portion of the LAD The circumflex artery Has a stent which originates off the left main artery and has a proximal greater than 90% severe in-stent restenosis followed by an additional 60 to 70% stenosis. Distal to the obtuse marginal artery stent is a concentric 40 to 50% stenosis The right coronary artery Is a dominant vessel and has proximal 20% stenosis with stents throughout the mid to distal segment which are widely patent with mild in-stent restenosis. Distally there are 30% diffuse stenoses The JUNIOR ventriculogram reveals Normal 65% The left ventricular end-diastolic pressure 15 mmHg IMPRESSION Critical dis
[2020-05-29 09:55] LABS: Anion Gap 13.3 mEq/L (5-15); Blood Urea Nitrogen 15 mg/dl (9-20); Calcium 9.6 mg/dl (8.4-10.2); Carbon Dioxide 24 mmol/L (22.0-30.0); Chloride 107 mmol/L (98-107); Creatinine Clearance Estimated 65 mL/min (50-200); Estimated Glomerular Filt Rate 66 ml/min (>60); GFR (African American) 80 ML/MIN (>60); Glucose 114 mg/dl (74-100); Potassium 4.3 mmoL/L (3.5-5.1); Sodium 140 mmol/L (136-145)
--- NOTE | 2020-05-29 14:10 | HMH.PHACLD ---
Carlo Noriega has received discharge medication counseling on the following medications: PATIENT IS ALREADY TAKING BISOPROLOL 5 MG DAILY, LIPITOR 40 MG HS, ASPIRIN [address] DAILY, AND PLAVIX 75 MG DAILY. MD DOES NOT WANT KELSIE/ARB AT THIS TIME. BP TODAY 100/59, HR 62.
[2020-05-29 14:41] LABS: CATHL Activated Clotting Time 273 SEC (74-125)
[2020-05-29 14:42] LABS: CATHL Activated Clotting Time > 400 SEC (74-125)
== END 2020-05-29 14:56 | disposition home or self-care (01) ==
LOC: CATHLAB 08:52
PROVIDERS: PCP Family Medicine; Visit Provider Internal Medicine
DX: T82.855A Stenosis of coronary artery stent, initial encounter (principal); Y83.1 Surgical operation with implant of artificial internal device as the cause of abnormal reaction of the patient, or of later complication, without mention of misadventure at the time of the procedure; R07.9 Chest pain, unspecified; I25.110 Atherosclerotic heart disease of native coronary artery with unstable angina pectoris; I10 Essential (primary) hypertension; J44.9 Chronic obstructive pulmonary disease, unspecified; Z79.82 Long term (current) use of aspirin
CPT/HCPCS: 80048; 85347; 92920; 92928; 93458; 99152; 99153; C1725; C1769; C1876; C9600; J1644; Q9967

== ENCOUNTER 2020-06-09 08:30 | Outpatient (RCR) | payer MEDICARE, SELFPAY | END 2020-09-21 10:49 | disposition home or self-care (01) | LOC: PT 08:30 | PROVIDERS: Visit Provider Internal Medicine | DX: Z95.5 Presence of coronary angioplasty implant and graft (principal) | CPT/HCPCS: 93798 ==

== ENCOUNTER → 2020-06-29 09:22 | Outpatient (CLI) | payer MEDICARE, SELFPAY ==
[2020-06-29 09:34] VITALS: BP 96/56; PULSE 67; RESP 18; TEMP 36.3; O2SAT 99
== END ==
PROVIDERS: Visit Provider Family Medicine
DX: M81.0 Age-related osteoporosis without current pathological fracture (principal)
CPT/HCPCS: 96372; J0897

== ENCOUNTER → 2020-08-27 07:12 | Outpatient (CLI) | payer MEDICARE, SELFPAY ==
--- NOTE | 2020-08-27 07:12 | CT_ITS ---
PROCEDURE: CT CHEST WO CON CLINCAL INDICATION: sob COMPARISON: CT CHW CT CHEST W/ CONTRAST from 06/02/2014 TECHNIQUE: Unenhanced CT chest with axial, coronal, and sagittal multiplanar reformations. Dose modulation, automated exposure control, and/or iterative reconstruction were used for dose reduction. FINDINGS: LUNGS:There is evidence of soft tissue density noted in the left suprahilar region, extends superiorly abutting the mediastinal pleura and causes minor pleural thickening measuring approximately 3.9 centimeters. Few focal areas of calcification is noted within the subpleural soft tissue density, appears longstanding. Minor associated adjacent the soft tissue density noted in the left lung apex. Loss of left lung volume is noted which may represent post therapeutic changes. There is a focal irregular spiculated appearing density noted in the left upper lobe measuring up to 1 times 0.8 centimeters. Minor tree-in-bud appearance is noted in the lungs bilaterally. Centrilobular emphysematous changes are noted in the lungs bilaterally. There is evidence of minor mucous debris noted in the distal trachea. Few subpleural nodules are noted measuring up to 3 millimeters. No other suspicious appearing lung nodules are noted. HEART / GREAT VESSELS Heart:The heart size is normal. Trace pericardial effusion is noted. Vessels: Atherosclerotic calcifications are present in the aorta and multiple coronary arteries. Coronary arterial stents are noted. MEDIASTINUM Mediastinum: There is no hilar or mediastinal lymphadenopathy. UPPER ABDOMEN: Abdomen:Cholecystectomy is noted. Left adrenal fat density nodule is noted measuring 1.7 centimeters, noted on the prior study. There is a right adrenal nodule measuring 1 centimeter, demonstrates no significant interval change. Focal hypodense lesion noted in the left kidney measuring 3.2 times 3.2 centimeters. Heterogeneous density is noted in the head of the pancreas, incompletely visualized on the current study. BONES Bones: Minor degenerative changes of the visualized Thyroid: Thoracic spine. Other IMPRESSION: Soft tissue density in the left suprahilar region extending superiorly causing my M mediastinal pleural thickening with loss of left lung volume, most likely represents post therapeutic changes. There is a 1 centimeter spiculated appearing density in the left upper lobe, raises the concern for a residual/recurrent disease. PET-CT should be considered for further evaluation. Multifocal minor tree-in-bud appearance noted in the lungs bilaterally. This may represent minor infection/inflammatory process but aspiration should be considered. Bilateral adrenal nodules, unchanged compared to prior study of June 02, 2014, likely represents adrenal adenomas. Partially visualized heterogeneous density of the head of the pancreas, incompletely characterized on the current unenhanced study. MRI of the pancreas without and with contrast is recommended for further evaluation. Dictated by: Antoinette Ovalles 08/27/2020 12:28 Antoinette Ovalles in [facility] 08/27/2020 12:28
== END ==
PROVIDERS: PCP Family Medicine; Visit Provider Internal Medicine Pulmonary Disease
DX: R06.00 Dyspnea, unspecified (principal); Z87.891 Personal history of nicotine dependence
CPT/HCPCS: 71250; 94060; 94618; 94726; 94729

== ENCOUNTER → 2020-09-28 08:26 | Outpatient (CLI) | payer MEDICARE, SELFPAY ==
--- NOTE | 2020-09-28 08:37 | MR_ITS ---
PROCEDURE: MR ABDOMEN WO/W CON CLINICAL INDICATION: MASS OF PANCREAS COMPARISON: CT CHW CT CHEST W/ CONTRAST from 06/02/[address] CHEST WO CON from 08/27/2020 TECHNIQUE: Routine multiplanar multi echo sequences are performed without and with gadolinium enhancement. MRCP images also performed. The liver, spleen, pancreas, and right kidney have an unremarkable appearance. There is a benign-appearing 3.4 cm cyst of the upper pole of the left kidney. There is a 1.4 cm left adrenal nodule and 1 cm right adrenal nodule which demonstrates decreased signal intensity on the out of phase images consistent with adenomas. Previous CT scan mention heterogeneous density within the head of the pancreas which may been reflection partial volume averaging artifact from the transverse portion of the duodenum. No definite pancreatic mass apparent. No peripancreatic fluid collections. No enhancing lesions of the pancreas. There is some mild heterogeneous signal intensity within the head of the pancreas which may be due to motion artifact. There is a mild degree of motion artifact from respiration causing some image blur artifact in the region of the head of the pancreas. Previous CT scan demonstrates a surgical clip in the region of the gallbladder fossa.. There is a 13 mm cystic area in the region of the gallbladder fossa just superior to the surgical clips. This area demonstrates increased T2 signal and is directly contiguous with the cystic duct. Common bile duct and pancreatic duct have an unremarkable appearance. There is a 1 cm area of decreased signal intensity within the descending portion of the duodenum as seen on the axial T2 haste fat sat images possibly due to small lipoma. FINDINGS: 1. No definite pancreatic mass apparent. There is some heterogeneous intensity in the head of the pancreas which may be due to respiratory motion artifact. Suggest 3 month follow-up with CT which should help to alleviate the motion artifact without and with contrast with pancreatic protocol. 2. Status post cholecystectomy with 13 mm cystic region in the gallbladder fossa which appears contiguous with the cystic duct and may be due to small biloma or focal dilatation of the cystic duct remnant versus incomplete cholecystectomy. 3. Bilateral adrenal nodules consistent with adenomas. IMPRESSION: Dictated by: Sriram Sharma MD 09/29/2020 06:47 Sriram Sharma MD in [facility] 09/29/2020 06:47
[2020-09-28 09:28] LABS: Blood Urea Nitrogen 14 mg/dl (9-20); Estimated Glomerular Filt Rate 66 ml/min (>60); GFR (African American) 79 ML/MIN (>60)
== END ==
PROVIDERS: PCP Family Medicine; Visit Provider Family Medicine
DX: K86.89 Other specified diseases of pancreas (principal)
CPT/HCPCS: 36415; 74183; 76376; 82565; 84520; A9576

== ENCOUNTER → 2020-11-04 13:50 | Outpatient (CLI) | payer MEDICARE, SELFPAY ==
--- NOTE | 2020-11-04 13:52 | US_ITS ---
PROCEDURE: MM DIG MAMM BI DX W/CAD Digital Breast Tomosynthesis Included LEFT BREAST ULTRASOUND COMPLETE CLINICAL INDICATION: LT BREAST MASS COMPARISON: US US BREAST LT COMPLETE from 11/04/2020 TECHNIQUE: Bilateral diagnostic mammogram performed along with left breast ultrasound FINDINGS: Flame shaped area of increased density is present in the retroareolar region bilaterally consistent with gynecomastia more prominent on the left. There are small nodes in the axilla on the left. Benign calcifications noted in the right axillary region and may represent skin calcifications. Left breast ultrasound: No cystic or solid lesions apparent. Fibroglandular tissue noted in the area of palpable concern. Right breast was also utilized for comparison also showing retroareolar fibroglandular tissue. IMPRESSION: Gynecomastia. No evidence of malignancy BI-RAD Category: 2 Benign Finding FOLLOW-UP: Follow-up as clinically warranted (A letter has been sent to the patient regarding results of the study.) Dictated by: Sriram Sharma MD 11/11/2020 13:46 Sriram Sharma MD in [facility] 11/11/2020 13:46
== END ==
PROVIDERS: PCP Family Medicine; Visit Provider Family Medicine
DX: N63.42 Unspecified lump in left breast, subareolar; N62 Hypertrophy of breast
CPT/HCPCS: 76641; 77062; 77066; G0279

== ENCOUNTER 2020-12-30 08:48 | Outpatient (CLI) | payer MEDICARE, SELFPAY ==
[2020-12-30 09:20] VITALS: BP 140/66; PULSE 59; RESP 18; TEMP 36.6; O2SAT 99
[2020-12-30 10:11] LABS: Blood Urea Nitrogen 16 mg/dl (9-20); Estimated Glomerular Filt Rate 66 ml/min (>60); GFR (African American) 79 ML/MIN (>60)
== END 2020-12-30 09:45 | disposition home or self-care (01) ==
PROVIDERS: Visit Provider Family Medicine
DX: Q45.3 Other congenital malformations of pancreas and pancreatic duct (principal); R93.5 Abnormal findings on diagnostic imaging of other abdominal regions, including retroperitoneum; M81.0 Age-related osteoporosis without current pathological fracture
CPT/HCPCS: 36415; 82565; 84520; 96372; J0897

== ENCOUNTER → 2021-01-04 08:42 | Outpatient (CLI) | payer MEDICARE, SELFPAY ==
--- NOTE | 2021-01-04 08:45 | CT_ITS ---
PROCEDURE: CT ABDOMEN WO/W CON CLINICAL HISTORY: PANCREATIC ABNORMALITY, ABN MRI OF ABD COMPARISON: CT CHW CT CHEST W/ CONTRAST from 06/02/[address] CHEST W IV CONTRAST from 07/30/[address] CHEST WO CON from 08/27/2020 MR MR ABDOMEN WO/W CON from 09/28/2020 TECHNIQUE: Images performed without and with contrast. 30 second, 60 second and 5 minutes delayed images obtained following administration of 75 mL of Isovue 370. Axial images obtained with sagittal and coronal reformats. All CT scans at the facility use one or more dose reduction, viz: automated exposure control, ma/kV adjustment per patient size (including targeted exams where dose is matched to indication, i.e. head), or iterative reconstruction technique. FINDINGS: Lower thorax: There is mild thickening of the pericardium. Centrilobular emphysematous changes. 4 mm nodular opacity right lung base laterally unchanged. Abdomen: 5 mm hypodensity in the left hepatic lobe at the dome of the liver medially and may represent a small cyst. Small peripheral area of enhancement in the right hepatic lobe anteriorly segment 6 nonspecific. Prior cholecystectomy. Unremarkable spleen. Small bilateral adrenal adenomas. 3 cm left renal cyst. There is heterogeneous density of the pancreatic head however no definite pancreatic mass is apparent. Pancreatic head is slightly prominent. Atherosclerotic changes involve the aorta with 40 percent narrowing of the mid aspect of the lower abdominal aorta. There is a stent in the right common iliac artery which is patent. There is approximately 60 percent stenosis of the proximal left common iliac artery. IMPRESSION: No definite pancreatic mass. There is heterogeneous density in the head of the pancreas which is slightly prominent not significantly changed. Continued 3 month follow-up CT suggested with contrast. 60 percent stenosis of the proximal aspect of the left common iliac artery Dictated by: Sriram Sharma MD 01/04/2021 11:46 Sriram Sharma MD in [facility] 01/04/2021 11:46
== END ==
PROVIDERS: PCP Family Medicine; Visit Provider Family Medicine
DX: Q45.3 Other congenital malformations of pancreas and pancreatic duct (principal); R93.5 Abnormal findings on diagnostic imaging of other abdominal regions, including retroperitoneum
CPT/HCPCS: 74170; Q9967

== ENCOUNTER 2021-03-10 10:26 | Day surgery (SDC) | payer MEDICARE, SELFPAY ==
[2021-03-10] VITALS (10 sets, daily range): BP systolic 90–122; BP diastolic 55–68; PULSE 55–63; RESP 18–20; TEMP 36.7; O2SAT 92–98; BMI 24.9
[2021-03-10 12:33] LABS: Coronavirus 19, PCR Not Detected (NotDetected); Influenza A, PCR Not Detected (NotDetected); Influenza B, PCR Not Detected (NotDetected)
[2021-03-10 12:37] LABS: Basophils # 0.1 K/mm3 (0-0.2); Basophils % 1.1 % (0.1-2.0); Eosinophils # 0.2 K/mm3 (0.0-0.4); Hematocrit 47.9 % (42.0-52.0); Lymphocytes # 1.7 K/mm3 (0.7-4.5); Mean Corpuscular HGB Conc 31.4 g/dL (31.8-35.4); Mean Corpuscular Hemoglobin 29.5 pg (27.0-31.2); Mean Platelet Volume 8.3 fl (7.4-10.4); Monocytes # 0.6 K/mm3 (0.1-1.0); Monocytes % 6.4 % (1.7-9.3); Neutrophils # 6.4 K/mm3 (1.8-7.8); Neutrophils % 71.5 % (37.0-80.0); Platelet Count 234 K/mm3 (142-424); Red Cell Distribution Width 14.5 % (11.5-17.5)
[2021-03-10 12:41] LABS: Chloride 103 mmol/L (98-107); Potassium 4.7 mmoL/L (3.5-5.1); Sodium 137 mmol/L (136-145)
[2021-03-10 12:44] LABS: Anion Gap 9.7 mEq/L (5-15); Blood Urea Nitrogen 15 mg/dl (9-20); Calcium 9.8 mg/dl (8.4-10.2); Carbon Dioxide 29 mmol/L (22.0-30.0); Creatinine Clearance Estimated 58 mL/min (50-200); Estimated Glomerular Filt Rate 59 ml/min (>60); GFR (African American) 72 ML/MIN (>60); Glucose 104 mg/dl (74-100)
--- NOTE | 2021-03-10 13:09 | IR_ITS ---
APPROVED REPORT Patient Location: Outpatient PROCEDURES Left heart catheterization Left ventriculogram Selective coronary angiogram Drug-eluting stent deployment to the proximal and mid nondominant circumflex artery INDICATION Coronary artery disease, Recalcitrant angina pectoris/accelerated/unstable angina, SCAI INDICATION 75-year-old gentleman with known multivessel coronary disease he is on 4 antianginal medications who presents with accelerated angina pectoris. Because of the multivessel coronary artery disease and symptoms he was taken directly to cardiac [facility]. Upon performing angiography small nondominant circumflex artery was severely stenosed with poor YEVGENIY I flow going down the vessel which was almost certainly the etiology for patient's symptoms. Patient does not have surgical disease based on wide patency of the LAD and the dominant right coronary artery. Sending patient for bypass surgery would not be appropriate for a nondominant circumflex artery. Despite the multiple procedures and repeat stenting it was still clinically appropriate to revascularize this vessel due to the recalcitrant and intractable angina pectoris. As result patient was prepped for percutaneous stenting Informed consent was obtained prior to the procedure. COMPLICATIONS NONE Estimated Blood Loss: LESS THAN 10 ML TECHNIQUE One percent lidocaine used to anesthetize the right anterior aspect of the wrist. The right radial artery was accessed via the Seldinger technique. A 6 [place] sheath was placed in the right radial artery. 2.5 mg of verapamil, 800 mcg of nitroglycerin, 1mg Lidocaine and 5000 U Heparin were given through the arterial sheath. The trap catheter was also used to perform left heart catheterization, left ventriculogram and selective coronary angiogram. At the end of the procedure the sheath was removed good hemostasis was achieved using Traclet band, patient was transferred to the postop holding area in stable condition. ANGIOGRAPHIC RESULTS The left main artery Has a stent in the proximal segment which extends into the LAD. The stent is widely patent with minimal in-stent restenosis and excellent proximal distal transitioning The left anterior descending artery Has a stent from the left main artery which extends throughout the proximal portion. The proximal portion is widely patent. There is 1 area of eccentric stenosis creating nothing greater than 40%. The transition into the mid LAD is excellent. There is an additional distal 40% concentric stenosis in the LAD The circumflex artery Is a nondominant vessel and has a stent originating off the left main artery. The proximal portion of the stent has severe greater than 90% in-stent restenosis accompanied by YEVGENIY-3 flow. After the revascularization there was wide patency of the circumflex artery with excellent inline flow to a terminal moderate-sized obtuse marginal artery The right coronary artery Is a dominant vessel with stents in the proximal and mid segment which are widely patent. There is 30 to 40% in-stent restenosis The JUNIOR ventriculogram reveals Not performed The left ventricular end-diastolic pressure Not measured IMPRESSION Coronary disease as described above Severe in-stent restenosis within a relatively small nondominant circumflex artery which is the etiology for patient's recalcitrant and intolerable angina pectoris Successful stenting of the nondominant circumflex artery severe disease reduced to 0% with 2 contiguous drug-eluting stents Wide patency of the LAD and dominant right coronary PLAN 1. Despite the multiple procedures patient is not a surgical candidate nor would it be appropriate to refer patien
--- NOTE | 2021-03-10 15:09 | HMH.PHACLD ---
Carlo Noriega has received discharge medication counseling on the following medications: -PLAVIX -ASA -ATORVASTATIN -BISOPROLOL
[2021-03-10 15:22] LABS: CATHL Activated Clotting Time 353 SEC (74-125)
== END 2021-03-10 17:26 | disposition home or self-care (01) ==
PROVIDERS: PCP Family Medicine; Visit Provider Internal Medicine
DX: I73.9 Peripheral vascular disease, unspecified (principal); Y83.1 Surgical operation with implant of artificial internal device as the cause of abnormal reaction of the patient, or of later complication, without mention of misadventure at the time of the procedure; I11.9 Hypertensive heart disease without heart failure; E78.5 Hyperlipidemia, unspecified; R06.00 Dyspnea, unspecified; Z85.118 Personal history of other malignant neoplasm of bronchus and lung; I25.110 Atherosclerotic heart disease of native coronary artery with unstable angina pectoris; T82.855A Stenosis of coronary artery stent, initial encounter; Z87.891 Personal history of nicotine dependence; Z79.899 Other long term (current) drug therapy; J44.9 Chronic obstructive pulmonary disease, unspecified; Z20.822 Contact with and (suspected) exposure to COVID-19
CPT/HCPCS: 80048; 85025; 85347; 92928; 93458; 99152; 99153; C1725; C1769; C1876; C9600; C9803; J1644; Q9967; U0003; U0005

== ENCOUNTER → 2021-03-18 12:16 | Outpatient (CLI) | payer MEDICARE, SELFPAY ==
[2021-03-18 13:01] LABS: Basophils % 0.6 % (0.1-2.0); Eosinophils # 0.2 K/mm3 (0.0-0.4); Eosinophils % 2.6 % (0.1-12.0); Hemoglobin 13.5 g/dL (14.1-18.0); Lymphocytes # 1.7 K/mm3 (0.7-4.5); Lymphocytes % 23.8 % (10-50); Mean Corpuscular HGB Conc 32.2 g/dL (31.8-35.4); Mean Corpuscular Hemoglobin 29.5 pg (27.0-31.2); Mean Corpuscular Volume 91.4 fl (80-94); Mean Platelet Volume 8.5 fl (7.4-10.4); Monocytes # 0.4 K/mm3 (0.1-1.0); Monocytes % 5.7 % (1.7-9.3); Neutrophils # 4.9 K/mm3 (1.8-7.8); Neutrophils % 67.4 % (37.0-80.0); Platelet Count 212 K/mm3 (142-424); Red Cell Distribution Width 14.3 % (11.5-17.5); White Blood Count 7.2 K/mm3 (4.8-10.8)
[2021-03-18 14:51] LABS: Anion Gap 10.9 mEq/L (5-15); Blood Urea Nitrogen 15 mg/dl (9-20); Calcium 9.1 mg/dl (8.4-10.2); Carbon Dioxide 26 mmol/L (22.0-30.0); Chloride 108 mmol/L (98-107); Estimated Glomerular Filt Rate 73 ml/min (>60); GFR (African American) 89 ML/MIN (>60); Glucose 121 mg/dl (74-100); Potassium 4.9 mmoL/L (3.5-5.1); Sodium 140 mmol/L (136-145)
== END ==
PROVIDERS: Nurse Practitioner Family; PCP Family Medicine; Visit Provider Internal Medicine
DX: E78.5 Hyperlipidemia, unspecified (principal); I11.9 Hypertensive heart disease without heart failure; I20.0 Unstable angina; I73.9 Peripheral vascular disease, unspecified; R06.00 Dyspnea, unspecified; R42 Dizziness and giddiness; Z85.118 Personal history of other malignant neoplasm of bronchus and lung; Z87.891 Personal history of nicotine dependence
CPT/HCPCS: 80048; 85025

== ENCOUNTER 2021-03-24 13:08 | Outpatient (RCR) | payer MEDICARE, SELFPAY | END 2021-03-24 13:10 | disposition home or self-care (01) | LOC: PT 13:08 | PROVIDERS: Visit Provider Internal Medicine | DX: I25.10 Atherosclerotic heart disease of native coronary artery without angina pectoris (principal); Z95.5 Presence of coronary angioplasty implant and graft | CPT/HCPCS: 93798 ==

== ENCOUNTER 2021-05-07 06:38 | Emergency (ER) | payer MEDICARE, SELFPAY ==
[2021-05-07] VITALS (13 sets, daily range): BP systolic 110–156; BP diastolic 52–81; PULSE 52–62; RESP 12–17; TEMP 36.8; O2SAT 97–99; BMI 24.3
--- NOTE | 2021-05-07 06:36 | ECG_ITS ---
APPROVED REPORT Exam: Resting ECG HR:63 bpm ECG Measurements Heart Rate 63 AXES AK 171 P 12 QRSd 97 QRS 34 QT 422 T 56 QTc 428 Conclusion SINUS RHYTHM LOW QRS VOLTAGE IN PRECORDIAL LEADS [QRS DEFLECTION < 1.0 mV IN CHEST LEADS] BORDERLINE ECG UNCONFIRMED REPORT Electronically signed by : Lakhwinder Miranda MD 05/08/2021 08:16:56
--- NOTE | 2021-05-07 06:40 | XR_ITS ---
FINAL REPORT CLINICAL HISTORY: CP FINDINGS: The heart size is normal. The mediastinum is normal. There is left lung atelectasis or scarring. There are no pleural effusions. There is no pneumothorax. There is no osseous abnormality. IMPRESSION: Left lung atelectasis or scarring. Reviewed, Interpreted and Dictated by Neel Bragg III, MD Transcribed by Sanchez Cho Authenticated by Neel Bragg III, MD on 05/07/2021 07:34:56 AM [facility]
--- NOTE | 2021-05-07 06:55 | HMH.EDCP ---
ED Disposition Clinical Impression: Unstable angina Disposition: Home, Self-Care Condition on Discharge: Good Instructions: DI for Angina Additional Instructions: use meds and see card Prescriptions: Isosorbide Dinitrate [Isordil 10mg tablet] 10 mg PO TID #90 tab Transmission Status: Pending to [id number] Referrals: Lakhwinder Link MD [Primary Care Provider] - - Critical Care Critical Care Time: No Attestation: On 05/07/21, the high probability of a clinically significant, sudden or life threatening deterioration of the following system(s) required my full and direct attention, intervention and personal management. The time I documented below is in addition to time spent performing reported procedures but includes the following listed in this critical care notation. Medical Decision Making - Medical Records Medical records reviewed: Yes: I reviewed the patient's medical records. - Naveen Inquiry Pt receiving controlled substance: No Vital Signs: 05/07/21 06:39 05/07/21 07:00 05/07/21 07:31 Temperature 98.3 F Temperature Source Oral Pulse Rate 60 57 L Pulse Rate [Right Radial] 62 Respiratory Rate 17 15 17 Blood Pressure 125/71 125/52 L Blood Pressure [Right Arm] 156/81 H Blood Pressure Mean 89 76 Blood Pressure Mean [Right Arm] 106 Blood Pressure Source [Right Arm] Automatic Cuff Blood Pressure Position [Right Arm] Sitting 02 Sat by Pulse Oximetry 98 98 98 Oxygen Delivery Method Room Air 05/07/21 07:56 05/07/21 08:00 05/07/21 08:30 Temperature Temperature Source Pulse Rate 53 L 54 L 55 L Pulse Rate [Right Radial] Respiratory Rate 15 15 14 Blood Pressure 122/72 117/69 124/69 Blood Pressure [Right Arm] Blood Pressure Mean 88 86 80 Blood Pressure Mean [Right Arm] Blood Pressure Source [Right Arm] Blood Pressure Position [Right Arm] 02 Sat by Pulse Oximetry 97 97 98 Oxygen Delivery Method 05/07/21 09:00 05/07/21 09:16 05/07/21 09:30 Temperature Temperature Source Pulse Rate 57 L 60 53 L Pulse Rate [Right Radial] Respiratory Rate 12 16 12 Blood Pressure 110/73 125/70 117/68 Blood Pressure [Right Arm] Blood Pressure Mean 86 88 91 Blood Pressure Mean [Right Arm] Blood Pressure Source [Right Arm] Blood Pressure Position [Right Arm] 02 Sat by Pulse Oximetry 97 98 98 Oxygen Delivery Method 05/07/21 09:45 05/07/21 10:16 05/07/21 10:30 Temperature Temperature Source Pulse Rate 52 L 56 L 52 L Pulse Rate [Right Radial] Respiratory Rate 15 12 12 Blood Pressure 110/65 114/59 L 115/61 Blood Pressure [Right Arm] Blood Pressure Mean 80 70 79 Blood Pressure Mean [Right Arm] Blood Pressure Source [Right Arm] Blood Pressure Position [Right Arm] 02 Sat by Pulse Oximetry 97 99 98 Oxygen Delivery Method - Lab Data Lab results reviewed: Yes: I reviewed the patient's lab results. Lab Results 05/07/21 06:41: WBC 7.8, RBC 4.82, Hgb 14.8, Hct 46.2, MCV 95.8 H, MCH 30.8, MCHC 32.1, RDW 14.6, Plt Count 277, MPV 8.6, Neut % (Auto) 67.7, Lymph % (Auto) 23.4, [place] % (Auto) 5.8, Eos % (Auto) 2.3, Baso % (Auto) 0.8, Neut # (Auto) 5.3, Lymph # (Auto) 1.8, [place] # (Auto) 0.5, Eos # (Auto) 0.2, Baso # (Auto) 0.1, ESR 13 05/07/21 06:41: Sodium 138, Potassium 4.6, Chloride 106, Carbon Dioxide 26, Anion Gap 10.6, BUN 17, Creatinine 1.20, Estimated Creat Clear 56, Estimated GFR 59, Est GFR ( Amer) 72, Glucose 139 H, Calcium 9.6, Total Bilirubin 0.9, Direct Bilirubin 0.1, Conjugated Bilirubin 0.0, Indirect Bilirubin 0.8, Unconjugated Bilirubin 0.8, AST 24, ALT 15, Alkaline Phosphatase 84, Troponin I < 0.01, C-Reactive Protein 1.9, Total Protein 7.0, Albumin 4.3, Procalcitonin 0.062 05/07/21 10:00: Troponin I 0.04 H Result diagrams: 05/07/21 06:41 05/07/21 06:41 Orders (Tests/Meds): ED MEDICATIONS Discontinued Medications Generic Name Dose Route Start Last Admin Trade Name Freq PRN Reason S
[2021-05-07 07:01] LABS: Basophils # 0.1 K/mm3 (0-0.2); Basophils % 0.8 % (0.1-2.0); Eosinophils # 0.2 K/mm3 (0.0-0.4); Eosinophils % 2.3 % (0.1-12.0); Hematocrit 46.2 % (42.0-52.0); Hemoglobin 14.8 g/dL (14.1-18.0); Lymphocytes # 1.8 K/mm3 (0.7-4.5); Lymphocytes % 23.4 % (10-50); Mean Corpuscular HGB Conc 32.1 g/dL (31.8-35.4); Mean Corpuscular Hemoglobin 30.8 pg (27.0-31.2); Mean Corpuscular Volume 95.8 fl (80-94); Mean Platelet Volume 8.6 fl (7.4-10.4); Monocytes # 0.5 K/mm3 (0.1-1.0); Monocytes % 5.8 % (1.7-9.3); Neutrophils # 5.3 K/mm3 (1.8-7.8); Neutrophils % 67.7 % (37.0-80.0); Platelet Count 277 K/mm3 (142-424); Red Blood Count 4.82 M/mm3 (4.60-6.20); Red Cell Distribution Width 14.6 % (11.5-17.5); White Blood Count 7.8 K/mm3 (4.8-10.8)
[2021-05-07 07:06] LABS: Alanine Aminotransferase 15 U/L (12-78); Albumin Level 4.3 g/dl (3.5-5.0); Alkaline Phosphatase 84 U/L (38-126); Anion Gap 10.6 mEq/L (5-15); Aspartate Amino Transferase 24 U/L (17-59); Bilirubin,Direct 0.1 mg/dl (0.0-0.4); Bilirubin,Indirect 0.8 mg/dL (0.0-0.9); Bilirubin,Total 0.9 mg/dl (0.2-1.3); Bilirubin,Unconjugated 0.8 mg/dL (0.0-1.1); Blood Urea Nitrogen 17 mg/dl (9-20); Calcium 9.6 mg/dl (8.4-10.2); Carbon Dioxide 26 mmol/L (22.0-30.0); Chloride 106 mmol/L (98-107); Creatinine Clearance Estimated 56 mL/min (50-200); Estimated Glomerular Filt Rate 59 ml/min (>60); GFR (African American) 72 ML/MIN (>60); Glucose 139 mg/dl (74-100); Potassium 4.6 mmoL/L (3.5-5.1); Sodium 138 mmol/L (136-145)
[2021-05-07 07:17] LABS: C-Reactive Protein 1.9 mg/L (0-4)
[2021-05-07 07:20] LABS: Troponin I < 0.01 ng/ml (0.00-0.034)
--- NOTE | 2021-05-07 07:20 | PC.NURSE ---
ANAHI YATES spoke with Dr. Gaffney.
[2021-05-07 07:22] LABS: Procalcitonin 0.062 ng/mL (0.0-2.0)
[2021-05-07 07:56] LABS: Erythrocyte Sedimentation Rate 13 mm/hr (0-20)
--- NOTE | 2021-05-07 10:05 | PC.NURSE ---
jose greern at [facility]
[2021-05-07 10:36] LABS: Troponin I 0.04 ng/ml (0.00-0.034)
--- NOTE | 2021-05-07 11:26 | HMH.CNCARD ---
History of Present Illness Consult date: 05/07/21 Requesting physician: Sampson Delgado Consult reason: chest pain Chief complaint: chest pain History of present illness: This is a 75-year-old white gentleman who presented to the emergency department complaints of chest pain. He states that around 530 this morning he had sudden onset of a pressure sensation in the substernal aspect of his chest. He states that it radiated to his back and left arm. The patient states that this was about a 6 out of 10 in intensity. He states that it was associated with shortness of breath and a little bit of nausea. He states that he took a sublingual nitroglycerin without any improvement in his pain. The patient states that at approximately 630 he woke his up and decided to come to the emergency department. He states when he got to the ER they treated him with nitro paste and aspirin and his symptoms subsided. He states that he feels great now with no recurrence of his chest pain. He denies any shortness of breath or edema now. He denies any fever, chills, nausea, vomiting, diarrhea, PND or orthopnea. The patient does have extensive coronary artery disease with recent stenting in March 2021 to the circumflex artery. The patient circumflex artery is small in nature and not amendable to coronary artery bypass grafting. His LAD and right coronary artery are widely patent. He does report having lots of dizziness here recently as well. He states that sometimes he stumbles because he feels like he is so dizzy. No falls and no syncope. [facility] History I have reviewed the patient's past medical history: Yes Medical History: Reports:: BPH, Cancer, Chronic Obstructive Pulmonary Disease (COPD), Coronary Artery Disease, Hyperlipidemia, Hypertension, Peripheral Artery Disease Denies:: Diabetes Mellitus Type 1, Diabetes Mellitus Type 2, Internal Pacemaker, MRSA, Seizures *Have you ever received a pneumonia vaccine?: No *Have you received a flu vaccine this season?: Yes Other Medical History: Reports: Chemotherapy, Radiation Therapy Laterality Cases: Left: Arthroscopy Knee, Other Other Surgeries: Yes: Cardiac Catheterization, Cholecystectomy, Colonoscopy, Coronary Stent, Other. No: Pacemaker Amputation: No Fractures: No - *Social History Smoking Status: Former smoker Tobacco Type: cigarettes # Packs/Day (cigarettes): 1 #Yrs smoked (if former smoker): 30 Alcohol Intake: never Alcohol Intake Frequency:: holidays/special occasions only Substance Use Type: denies use *Occupational Status:: retired Housing: house Household Members: spouse *Travel in the last 8 weeks: None Family Hx:: Cancer Meds Home Medications Medication Instructions Recorded Confirmed Type Lactobacillus Acidophilus 1 each PO DAILY 05/17/18 05/07/21 History [Acidophilus] aspirin 81 mg tablet,delayed 81 mg PO DAILY 05/17/18 05/07/21 History release finasteride 5 mg tablet 5 mg PO DAILY 05/17/18 05/07/21 History denosumab 60 mg/mL subcutaneous 60 mg SQ [id number] 06/13/19 05/07/21 History syringe furosemide 20 mg tablet 20 mg PO DAILY tab 05/28/20 05/07/21 History albuterol sulfate 90 mcg/actuation 1 inh INHALATION QID PRN #8.5 g 07/31/20 05/07/21 Rx aerosol inhaler clopidogrel 75 mg tablet 75 mg PO DAILY #90 tab 09/22/20 05/07/21 Rx atorvastatin 40 mg tablet 40 mg PO DAILY tab 10/02/20 05/07/21 History nitroglycerin 0.4 mg sublingual 0.4 mg SUBLINGUAL Q5M PRN #20 tab 03/18/21 05/07/21 Rx tablet bisoprolol fumarate 5 mg tablet 5 mg PO DAILY #90 tab 04/05/21 05/07/21 Rx spironolactone 25 mg tablet 25 mg PO DAILY #90 tab 04/05/21 05/07/21 Rx Isosorbide Dinitrate [Isordil 10mg 10 mg PO TID #90 tab 05/07/21 Rx tablet] Ranolazine [Ranolazine ER] 1,000 mg PO BID 05/07/21 05/07/21 History Allergies Allergy/AdvReac Type Severity Reaction Status Date / Time isosorbide AdvReac Headache Verified 03/18/21 13:48 Exam Vital signs and Labs for Last 24 Hours: Tem
== END 2021-05-07 11:09 | disposition home or self-care (01) ==
PROVIDERS: Emergency Provider Emergency Medicine; PCP Family Medicine
DX: I20.8 Other forms of angina pectoris (principal); R11.0 Nausea; I25.10 Atherosclerotic heart disease of native coronary artery without angina pectoris; I10 Essential (primary) hypertension; E78.5 Hyperlipidemia, unspecified; Z87.891 Personal history of nicotine dependence; Z79.899 Other long term (current) drug therapy
CPT/HCPCS: 71045; 80048; 80076; 84145; 84484; 85025; 85651; 86140; 93005; 96374; 99284

== ENCOUNTER 2021-05-14 10:35 | Day surgery (SDC) | payer MEDICARE, SELFPAY ==
[2021-05-14] VITALS (13 sets, daily range): BP systolic 93–137; BP diastolic 53–73; PULSE 54–97; RESP 16–18; TEMP 36.7; O2SAT 92–98; BMI 25.8
--- NOTE | 2021-05-14 | IR_ITS ---
APPROVED REPORT Patient Location: Outpatient Credit Department Manager: JASEN Mar RT (R) PROCEDURES Left heart catheterization Left ventriculogram Selective coronary angiogram Drug-eluting stent deployment to the proximal mid circumflex artery INDICATION Unstable angina, Coronary artery disease Informed consent was obtained prior to the procedure. COMPLICATIONS NONE Estimated Blood Loss: LESS THAN 10ML TECHNIQUE One percent lidocaine was used to anesthetize the right groin. The right femoral artery was accessed via the Seldinger technique. A 4-[place] sheath was placed in the right femoral artery. The JL-4 and JR-4 catheter was also used to perform left heart catheterization left ventriculogram and selective coronary angiogram. At the end the diagnostic angiogram therapeutic heparin was administered giving a therapeutic ACT and the sheath was exchanged out for a 6 [place] sheath. A JL4 guide catheter was placed in the left main artery followed by a Choice PT extra-support wire in the circumflex artery. A 2.5 x 33 mm Xience stent was deployed at 20 nery reducing the distal stenosis to 0%. A 3 mm x 12 mm balloon was then placed inside the vessel mostly in the midportion and proximal segment and deployed at 20 nery to post dilate. YEVGENIY-3 flow was present before and after the procedure. At the end of the procedure the apparatus was removed the groin is reprepped closure change sheath was removed and hemostasis was achieved using Perclose device patient transferred the postop holding in stable condition ANGIOGRAPHIC RESULTS The left main artery Has a stent in the proximal segment which is widely patent and extends into the proximal LAD The left anterior descending artery Has a stent which originates off the left main artery. The proximal portion of the stent is widely patent. Distally there is 40% concentric in-stent restenosis followed by 30% stenosis distal to the stent. The mid LAD is then widely patent while the distal LAD has a concentric 70% stenosis at a 2.25-2 5 mm vessel. The LAD is large and does wrap the apex The circumflex artery Has a stent which bifurcates off the left main artery. The proximal portion of the stent is patent however the midportion has a concentric 80% stenosis. Distal to the stent the [place] vessel and has a 60 to 70% stenosis The right coronary artery There is a dominant vessel with stents which extend from the proximal through mid segment. There are 30% diffuse in-stent restenosis. Distally the vessel has a 40 and then 30% tandem stenosis proximal to the posterior descending artery The JUNIOR ventriculogram reveals Normal 65% The left ventricular end-diastolic pressure Severely elevated at 30 mmHg IMPRESSION Coronary disease as described above Successful stenting the circumflex artery severe disease reduced to 0% with 1 drug-eluting stent Persistent severe disease in the distal LAD as described above Persistent moderate disease in the distal dominant right coronary as described above Normal ejection fraction Severely elevated LVEDP PLAN 1. Dual antiplatelet therapy 2. Risk factor modification 3. Historically after opening the circumflex artery patient's angina pectoris has resolved. Should patient continue to have chest pain after this revascularization then it is possible the angina is coming from either the LAD or the distal dominant right coronary artery. Patient also has diastolic dysfunction which may be a contributing factor to the angina. Only if patient has recalcitrant angina pectoris would I revascularize the LAD. It is reasonable to perform FFR of the dominant right coronary artery but only after the LVEDP is treated. Currently with an
[2021-05-14 10:46] LABS: Coronavirus 19, PCR Not Detected (NotDetected); Influenza A, PCR Not Detected (NotDetected); Influenza B, PCR Not Detected (NotDetected)
[2021-05-14 11:03] LABS: Chloride 108 mmol/L (98-107); Potassium 4.5 mmoL/L (3.5-5.1); Sodium 139 mmol/L (136-145)
[2021-05-14 11:06] LABS: Anion Gap 9.5 mEq/L (5-15); Blood Urea Nitrogen 17 mg/dl (9-20); Carbon Dioxide 26 mmol/L (22.0-30.0); Creatinine Clearance Estimated 52 mL/min (50-200); Estimated Glomerular Filt Rate 54 ml/min (>60); GFR (African American) 65 ML/MIN (>60)
[2021-05-14 11:07] LABS: Calcium 8.6 mg/dl (8.4-10.2); Glucose 97 mg/dl (74-100)
[2021-05-14 11:27] LABS: Basophils # 0.1 K/mm3 (0-0.2); Basophils % 0.8 % (0.1-2.0); Eosinophils # 0.1 K/mm3 (0.0-0.4); Eosinophils % 1.8 % (0.1-12.0); Hematocrit 38.5 % (42.0-52.0); Hemoglobin 12.3 g/dL (14.1-18.0); Lymphocytes # 1.6 K/mm3 (0.7-4.5); Lymphocytes % 22.3 % (10-50); Mean Corpuscular Hemoglobin 30.6 pg (27.0-31.2); Mean Corpuscular Volume 95.4 fl (80-94); Mean Platelet Volume 8.3 fl (7.4-10.4); Monocytes # 0.5 K/mm3 (0.1-1.0); Monocytes % 6.4 % (1.7-9.3); Neutrophils % 68.8 % (37.0-80.0); Platelet Count 225 K/mm3 (142-424); Red Blood Count 4.03 M/mm3 (4.60-6.20); Red Cell Distribution Width 14.7 % (11.5-17.5); White Blood Count 7.3 K/mm3 (4.8-10.8)
[2021-05-14 14:34] LABS: CATHL Activated Clotting Time 355 SEC (74-125)
--- NOTE | 2021-05-14 14:42 | HMH.PHACLD ---
Carlo Noriega has received discharge medication counseling on the following medications: PATIENT IS CURRENTLY TAKEING ASPIRIN [address] DAILY, ATORVASTATIN 40 MG HS, BISOPROLOL 2.5 MG DAILY, AND CLOPIDOGREL 75 MG DAILY. MD NOT WANTING TO START KELSIE/ARB AT THIS TIME.
== END 2021-05-14 16:23 | disposition home or self-care (01) ==
PROVIDERS: PCP Internal Medicine Cardiovascular Disease; Visit Provider Internal Medicine
DX: I25.110 Atherosclerotic heart disease of native coronary artery with unstable angina pectoris; Z79.02 Long term (current) use of antithrombotics/antiplatelets; Z79.01 Long term (current) use of anticoagulants; Z79.899 Other long term (current) drug therapy; Z95.5 Presence of coronary angioplasty implant and graft; I25.2 Old myocardial infarction; I11.9 Hypertensive heart disease without heart failure; Z87.891 Personal history of nicotine dependence; J44.9 Chronic obstructive pulmonary disease, unspecified; T82.855A Stenosis of coronary artery stent, initial encounter; Y83.1 Surgical operation with implant of artificial internal device as the cause of abnormal reaction of the patient, or of later complication, without mention of misadventure at the time of the procedure
CPT/HCPCS: 36415; 80048; 85025; 85347; 92928; 93459; 99152; 99153; C1725; C1760; C1769; C1876; C9600; C9803; J1644; Q9967; U0003; U0005

== ENCOUNTER 2021-05-15 07:53 | Day surgery (SDC) | payer MEDICARE, SELFPAY ==
[2021-05-15] VITALS (19 sets, daily range): BP systolic 83–129; BP diastolic 47–76; PULSE 58–75; RESP 15–18; TEMP 36.6–37; O2SAT 92–98; BMI 24.9
--- NOTE | 2021-05-15 | IR_ITS ---
APPROVED REPORT Patient Location: Emergent Guest Experience Manager: JASEN Moreno RT (R) PROCEDURES Left femoral arterial access Catheter placement in the right external iliac artery Right external iliac artery antegrade angiogram Angioplasty to the right common femoral artery INDICATION Acute occlusion of the right common femoral artery Informed consent was obtained prior to the procedure. COMPLICATIONS NONE Estimated Blood Loss: LESS THAN 10 ML TECHNIQUE 1% lidocaine used to anesthetize the left femoral groin. The left femoral artery was accessed via the Seldinger technique. Using fluoroscopic guidance the rim catheter was advanced to the abdominal aorta and then used to cannulate the right common iliac artery. Angiography was performed which demonstrated an occlusion of the right common femoral artery. Therapeutic heparin was administered and the 6 Urdu sheath was exchanged for a 45 cm Terumo sheath. An advantage wire was then advanced and placed down into the superficial femoral artery. A 5 x 40 mm balloon was deployed which would boost the occlusion. A 7 mm x 80 mm balloon was then advanced and deployed at 8 nery for 2 minutes reducing the stenosis to less than 10%. There was wide patency of the right common femoral artery with antegrade flow into the SFA and profunda femoris. At the end the procedure the apparatus was removed the patient was transferred to the postop holding area in stable condition for sheath removal and postoperative care ANGIOGRAPHIC RESULTS Right common femoral artery is subtotally occluded IMPRESSION Acute occlusion of the right common femoral artery with successful percutaneous angioplasty reopening the vessel and restoring inline antegrade flow to the SFA and profunda femoris PLAN 1. Continue dual antiplatelet therapy 2. Start Xarelto 2.5 p.o. twice daily 3. Standard therapy for ischemic heart disease and peripheral vascular disease Electronically signed by : Carl Gaffney MD 05/15/2021 11:39:44
--- NOTE | 2021-05-15 | CT_ITS ---
PROCEDURE INFORMATION: Exam: CTA Right Lower Extremity With Contrast Exam date and time: 05/15/2021 9:02 AM Age: 75 years old Clinical indication: Weakness and other: Pain right lower extremity with walking; Prior surgery; Surgery date: Post-operative (0-2 days); Surgery type: Cardiac cath yesterday; Additional info: Claudication S/P cardiac cath yesterday TECHNIQUE: Imaging protocol: CTA images of the Right lower extremity with intravenous contrast using CT angiography protocol. 3D rendering (Not supervised by radiologist): MIP and/or 3D reconstructed images were created by the technologist. Radiation optimization: All CT scans at this facility use at least one of these dose optimization techniques: automated exposure control; mA and/or kV adjustment per patient size (includes targeted exams where dose is matched to clinical indication); or iterative reconstruction. Contrast material: ISOVUE; Contrast volume: 120 ml; Contrast route: INTRAVENOUS (IV); COMPARISON: No relevant prior studies available. FINDINGS: Right iliac arteries: Moderate stenosis of the visualized right common iliac artery. High-grade stenosis of the proximal right external iliac artery. Right femoral/popliteal arteries: Short-segment occlusion of the proximal right common femoral artery. There is a fairly substantial amount of calcified atherosclerotic plaque at this site. The right superficial femoral artery is patent. No evidence of pseudoaneurysm or AV fistula. Right infrapopliteal arteries: No occlusion or significant stenosis. Bones/joints: No acute fracture. No dislocation. Soft tissues: Some ill-defined stranding extends along the right pelvic sidewall. Small amount of ill-defined edema and or hemorrhage in the right inguinal region. No defined hematoma. IMPRESSION: Short-segment occlusion of the proximal right common femoral artery. The right SFA, popliteal artery and infrapopliteal arteries are patent.
--- NOTE | 2021-05-15 08:03 | HMH.EDEXTP ---
ED Disposition Clinical Impression: PAD (peripheral artery disease), Ischemia of left lower extremity Disposition: Admitted as Observation Condition on Discharge: Serious - Critical Care Critical Care Time: Yes Attestation: On , the high probability of a clinically significant, sudden or life threatening deterioration of the following system(s) required my full and direct attention, intervention and personal management. The time I documented below is in addition to time spent performing reported procedures but includes the following listed in this critical care notation. Total Critical Care Time: 35 Vital system(s) involved:: Circulatory Failure My critical care processes included: Assessment & monitoring of V/S, Initial and Re-exams, Data Review/Interpretation, Coordinating Care, Medication Orders and management Medical Decision Making - Medical Records Medical records reviewed: Yes: I reviewed the patient's medical records. - Naveen Inquiry Pt receiving controlled substance: No Vital Signs: 05/15/21 07:54 05/15/21 08:51 05/15/21 08:52 Temperature 97.9 F Temperature Source Oral Pulse Rate 66 65 Pulse Rate [Left] 67 Respiratory Rate 18 16 Blood Pressure 103/64 L 103/64 L Blood Pressure [Left Arm] 129/76 Blood Pressure Mean 73 Blood Pressure Mean [Left Arm] 93 Blood Pressure Source Blood Pressure Source [Left Arm] Automatic Cuff Blood Pressure Position Blood Pressure Position [Left Arm] Supine 02 Sat by Pulse Oximetry 97 97 97 Oxygen Delivery Method Room Air 05/15/21 09:00 05/15/21 09:30 05/15/21 10:01 Temperature 98.2 F Temperature Source Oral Pulse Rate 75 63 63 Pulse Rate [Left] Respiratory Rate 16 17 17 Blood Pressure 100/52 L 105/64 L 105/74 L Blood Pressure [Left Arm] Blood Pressure Mean 66 77 Blood Pressure Mean [Left Arm] Blood Pressure Source Automatic Cuff Blood Pressure Source [Left Arm] Blood Pressure Position Sitting Blood Pressure Position [Left Arm] 02 Sat by Pulse Oximetry 96 97 Oxygen Delivery Method Room Air - Lab Data Lab results reviewed: Yes: I reviewed the patient's lab results. Lab Results 05/15/21 08:34: WBC 8.6, RBC 3.74 L, Hgb 11.6 L, Hct 35.5 L, MCV 95.0 H, MCH 31.1, MCHC 32.7, RDW 15.0, Plt Count 217, MPV 8.7, Neut % (Auto) 75.2, Lymph % (Auto) 15.9, [place] % (Auto) 5.9, Eos % (Auto) 2.1, Baso % (Auto) 0.8, Neut # (Auto) 6.5, Lymph # (Auto) 1.4, [place] # (Auto) 0.5, Eos # (Auto) 0.2, Baso # (Auto) 0.1 05/15/21 08:34: Sodium 138, Potassium 4.3, Chloride 109 H, Carbon Dioxide 23, Anion Gap 10.3, BUN 15, Creatinine 1.00 D, Estimated Creat Clear 69, Estimated GFR 73, Est GFR ( Amer) 89 D, Glucose 110 H, Calcium 8.5, Total Bilirubin 0.7, AST 26, ALT 20, Alkaline Phosphatase 82, Total Protein 6.1 L, Albumin 3.7, Globulin 2.4, Albumin/Globulin Ratio 1.5 05/15/21 08:34: PT 11.0, INR 0.97, APTT 21.1 L 05/15/21 08:37: SARS-CoV-2 (PCR) Not detected, Influenza A Untype (PCR) Not detected, Influenza Type B (PCR) Not detected 05/15/21 10:06: Activated Clotting Time 287 H* Result diagrams: 05/15/21 08:34 05/15/21 08:34 Orders (Tests/Meds): ED MEDICATIONS Generic Name Dose Route Start Last Admin Trade Name Freq PRN Reason Stop Dose Admin Hydrocodone Bitart/Acetaminophen 2 tab 05/15/21 11:24 Hydrocodone/Apap 5/325 Mg Tablet PO 06/14/21 11:23 Q4HP PRN Mild Pain Clopidogrel Bisulfate 75 mg 05/16/21 21:00 Clopidogrel 75mg Tab PO 06/15/21 20:59 DAILY AMAN Fentanyl Citrate 25 mcg 05/15/21 09:32 05/15/21 10:35 Fentanyl 100mcg/2ml Vial IV 05/16/21 09:32 100 mcg Q3MINP PRN Administration Moderate to Severe Pain Fentanyl Citrate 50 mcg 05/15/21 09:32 Fentanyl 100mcg/2ml Vial IV 05/16/21 09:32 Q3MINP PRN Moderate to Severe Pain Fentanyl Citrate 25 mcg 05/15/21 09:32 Fentanyl 250mcg/5ml Vial IV 05/16/21 09:32 Q3MINP PRN Moderate to Severe Pain Oxana
--- NOTE | 2021-05-15 08:24 | PC.NURSE ---
unable to locate pedal pulse or dorsal pedialis on the right side with the Doppler.
--- NOTE | 2021-05-15 08:31 | PC.NURSE ---
speaking with Dr. Gaffney
[2021-05-15 08:43] LABS: Basophils # 0.1 K/mm3 (0-0.2); Basophils % 0.8 % (0.1-2.0); Eosinophils # 0.2 K/mm3 (0.0-0.4); Eosinophils % 2.1 % (0.1-12.0); Hematocrit 35.5 % (42.0-52.0); Hemoglobin 11.6 g/dL (14.1-18.0); Lymphocytes # 1.4 K/mm3 (0.7-4.5); Lymphocytes % 15.9 % (10-50); Mean Corpuscular HGB Conc 32.7 g/dL (31.8-35.4); Mean Corpuscular Hemoglobin 31.1 pg (27.0-31.2); Mean Platelet Volume 8.7 fl (7.4-10.4); Monocytes # 0.5 K/mm3 (0.1-1.0); Monocytes % 5.9 % (1.7-9.3); Neutrophils # 6.5 K/mm3 (1.8-7.8); Neutrophils % 75.2 % (37.0-80.0); Platelet Count 217 K/mm3 (142-424); Red Blood Count 3.74 M/mm3 (4.60-6.20); White Blood Count 8.6 K/mm3 (4.8-10.8)
[2021-05-15 08:49] LABS: Chloride 109 mmol/L (98-107); Potassium 4.3 mmoL/L (3.5-5.1); Sodium 138 mmol/L (136-145)
[2021-05-15 08:51] LABS: Blood Urea Nitrogen 15 mg/dl (9-20); Creatinine Clearance Estimated 69 mL/min (50-200); Estimated Glomerular Filt Rate 73 ml/min (>60); GFR (African American) 89 ML/MIN (>60)
[2021-05-15 08:52] LABS: Alanine Aminotransferase 20 U/L (12-78); Albumin Level 3.7 g/dl (3.5-5.0); Albumin/Globulin Ratio 1.5 (1.1-1.8); Alkaline Phosphatase 82 U/L (38-126); Anion Gap 10.3 mEq/L (5-15); Aspartate Amino Transferase 26 U/L (17-59); Bilirubin,Total 0.7 mg/dl (0.2-1.3); Calcium 8.5 mg/dl (8.4-10.2); Carbon Dioxide 23 mmol/L (22.0-30.0); Globulin 2.4 g/dL (1.3-3.2); Glucose 110 mg/dl (74-100); Total Protein,Serum 6.1 g/dl (6.3-8.2)
--- NOTE | 2021-05-15 08:52 | PC.NURSE ---
Medicated pt per MAR. Updated pt and on POC. Both agreeable with plan at this time
--- NOTE | 2021-05-15 08:55 | PC.NURSE ---
I spoke with Dr Gaffney who asked me to call Capo (director executive communications for lab associate) and ask him to come in. He states he already talked to Mary and Olya himself so no need to notify them. I spoke with Capo who states he is on his way in.
--- NOTE | 2021-05-15 08:55 | PC.NURSE ---
Notified rad of CT
[2021-05-15 09:03] LABS: Activated Partial Thrombo Time 21.1 seconds (22.8-30.6); INR 0.97 (0.9-1.1)
--- NOTE | 2021-05-15 09:40 | PC.NURSE ---
[employer] consent has been signed. Pt is getting undressed now.
--- NOTE | 2021-05-15 09:54 | PC.NURSE ---
Called Dr Watson for service for pt. his nurse advised she would have him call back
[2021-05-15 10:05] LABS: Coronavirus 19, PCR Not Detected (NotDetected); Influenza A, PCR Not Detected (NotDetected); Influenza B, PCR Not Detected (NotDetected)
[2021-05-15 11:31] LABS: CATHL Activated Clotting Time 287 SEC (74-125)
--- NOTE | 2021-05-15 11:42 | PC.NURSE ---
Pt arrived to the floor at this time
[2021-05-16] VITALS: BP 114/53; PULSE 60; RESP 18; TEMP 36.8; O2SAT 97
[2021-05-16 03:55] VITALS: BP 103/49; PULSE 63; RESP 18; TEMP 36.7; O2SAT 95
[2021-05-16 04:00] VITALS: PULSE 60
[2021-05-16 05:00] VITALS: BMI 24.4
[2021-05-16 08:00] VITALS: BP 122/53; PULSE 65; PULSE 69; RESP 16; TEMP 36.8; O2SAT 95; O2SAT 99
== END 2021-05-16 10:14 | disposition home or self-care (01) ==
LOC: ER 09:39 → CATHLAB 10:49 → 2ND 10:52
PROVIDERS: Emergency Provider Emergency Medicine; Visit Provider Internal Medicine
DX: I74.3 Embolism and thrombosis of arteries of the lower extremities (principal); I77.1 Stricture of artery; Z20.822 Contact with and (suspected) exposure to COVID-19; I11.9 Hypertensive heart disease without heart failure; Z87.891 Personal history of nicotine dependence; I25.2 Old myocardial infarction; Z79.899 Other long term (current) drug therapy; Z79.01 Long term (current) use of anticoagulants; Z79.02 Long term (current) use of antithrombotics/antiplatelets
CPT/HCPCS: 37224; 73706; 80053; 85025; 85347; 85610; 85730; 96365; 96375; 99152; 99153; 99291; C1725; C1766; C1769; C1894; C9803; J1644; Q9967; U0003; U0005

== ENCOUNTER → 2021-05-20 08:15 | Outpatient (CLI) | payer MEDICARE, SELFPAY ==
[2021-05-20 09:04] LABS: Basophils # 0.1 K/mm3 (0-0.2); Basophils % 0.9 % (0.1-2.0); Eosinophils # 0.2 K/mm3 (0.0-0.4); Eosinophils % 2.7 % (0.1-12.0); Hematocrit 35.3 % (42.0-52.0); Hemoglobin 11.6 g/dL (14.1-18.0); Lymphocytes # 1.3 K/mm3 (0.7-4.5); Lymphocytes % 19.7 % (10-50); Mean Corpuscular HGB Conc 32.8 g/dL (31.8-35.4); Mean Corpuscular Hemoglobin 31.2 pg (27.0-31.2); Mean Corpuscular Volume 95.2 fl (80-94); Mean Platelet Volume 8.6 fl (7.4-10.4); Monocytes # 0.4 K/mm3 (0.1-1.0); Monocytes % 5.8 % (1.7-9.3); Neutrophils # 4.8 K/mm3 (1.8-7.8); Neutrophils % 70.9 % (37.0-80.0); Platelet Count 236 K/mm3 (142-424); Red Blood Count 3.71 M/mm3 (4.60-6.20); Red Cell Distribution Width 15.1 % (11.5-17.5); White Blood Count 6.8 K/mm3 (4.8-10.8)
[2021-05-20 10:02] LABS: Chloride 107 mmol/L (98-107); Potassium 4.6 mmoL/L (3.5-5.1); Sodium 140 mmol/L (136-145)
[2021-05-20 10:05] LABS: Anion Gap 10.6 mEq/L (5-15); Blood Urea Nitrogen 18 mg/dl (9-20); Carbon Dioxide 27 mmol/L (22.0-30.0); Estimated Glomerular Filt Rate 73 ml/min (>60); GFR (African American) 89 ML/MIN (>60)
[2021-05-20 10:06] LABS: Calcium 8.8 mg/dl (8.4-10.2); Glucose 100 mg/dl (74-100)
== END ==
PROVIDERS: Visit Provider Internal Medicine
DX: R06.02 Shortness of breath (principal); I20.9 Angina pectoris, unspecified
CPT/HCPCS: 36415; 80048; 85025

== ENCOUNTER 2021-06-29 09:22 | Outpatient (CLI) | payer MEDICARE, SELFPAY ==
[2021-06-29 09:30] VITALS: BP 125/68; PULSE 67; RESP 18; O2SAT 99
[2021-06-29 09:40] VITALS: BP 143/71; PULSE 67; O2SAT 100
== END 2021-06-29 09:40 | disposition home or self-care (01) ==
LOC: INF 09:23
PROVIDERS: PCP Emergency Medicine; Visit Provider Nurse Practitioner Family
DX: M81.0 Age-related osteoporosis without current pathological fracture (principal)
CPT/HCPCS: 96372; J0897

== ENCOUNTER → 2021-07-27 10:00 | Outpatient (POV) | payer MEDICARE, SELFPAY | PROVIDERS: Visit Provider Dermatology | DX: Z00.00 Encounter for general adult medical examination without abnormal findings (principal) ==

== ENCOUNTER → 2021-07-28 09:12 | Outpatient (CLI) | payer MEDICARE, SELFPAY ==
--- NOTE | 2021-07-28 09:22 | CT_ITS ---
FINAL REPORT CLINICAL HISTORY: right lower extremity claudication, PAD FINDINGS: Thin section axial CT images of the abdomen, pelvis and lower extremities were obtained with contrast. Multiplanar reformatted images were also obtained and reviewed. ABDOMEN AND PELVIS: There is no abdominal aortic aneurysm or dissection. There is moderate plaque in the abdominal aorta with 30% narrowing. There is no renal artery stenosis. The inferior mesenteric artery is patent. There is a right common iliac artery stent. There is plaque in the right common and external iliac arteries with mild stenoses. There is 60% under stenosis of the left common iliac artery. There is mild stenoses of the left external iliac artery. RIGHT LOWER EXTREMITY: There is 30% stenosis of the right common iliac artery. There is mild stenosis of the right common femoral and superficial femoral arteries. The right deep femoral artery is patent. The right popliteal artery is patent. There is three-vessel runoff to the distal lower leg. There is poor opacification of the distal anterior and posterior tibial arteries likely due to contrast bolus. LEFT LOWER EXTREMITY: There is mild stenosis of the left common femoral artery. There is no significant stenosis of the left superficial femoral arteries. The left deep femoral artery is patent. The left popliteal artery is patent. There is three-vessel runoff to the distal lower leg. Distal anterior and posterior tibial arteries are not well visualized likely due to contrast bolus. OTHER FINDINGS: There are postoperative changes from cholecystectomy. There is a 16 mm partially imaged nodule of the gallbladder fossa of uncertain etiology. There is a small duodenal lipoma. There is a left renal cyst. There is scattered sigmoid diverticula. IMPRESSION: 60% stenosis of the left common iliac. Mild stenoses elsewhere. Reviewed, Interpreted and Dictated by Neel Bragg III, MD Transcribed by Amie Michel Authenticated and . [facility]
[2021-07-28 09:39] LABS: Chloride 104 mmol/L (98-107); Sodium 138 mmol/L (136-145)
[2021-07-28 09:40] LABS: Potassium 4.5 mmoL/L (3.5-5.1)
[2021-07-28 09:42] LABS: Blood Urea Nitrogen 16 mg/dl (9-20); Estimated Glomerular Filt Rate 66 ml/min (>60); GFR (African American) 79 ML/MIN (>60)
[2021-07-28 09:43] LABS: Anion Gap 10.5 mEq/L (5-15); Calcium 9.8 mg/dl (8.4-10.2); Carbon Dioxide 28 mmol/L (22.0-30.0); Glucose 118 mg/dl (74-100)
== END ==
PROVIDERS: PCP Emergency Medicine; Visit Provider Nurse Practitioner
DX: E78.2 Mixed hyperlipidemia (principal); I11.9 Hypertensive heart disease without heart failure; I25.118 Atherosclerotic heart disease of native coronary artery with other forms of angina pectoris; I73.9 Peripheral vascular disease, unspecified; M79.604 Pain in right leg; R06.02 Shortness of breath; Q72.0 Congenital complete absence of lower limb; R42 Dizziness and giddiness; Z85.118 Personal history of other malignant neoplasm of bronchus and lung
CPT/HCPCS: 36415; 75635; 80048; Q9967

== ENCOUNTER → 2021-08-10 09:42 | Outpatient (CLI) | payer MEDICARE, SELFPAY | PROVIDERS: PCP Emergency Medicine; Visit Provider Internal Medicine Gastroenterology | DX: Z01.812 Encounter for preprocedural laboratory examination (principal); Z20.822 Contact with and (suspected) exposure to COVID-19; Z12.11 Encounter for screening for malignant neoplasm of colon | CPT/HCPCS: C9803; U0003; U0005 ==

== ENCOUNTER 2021-08-12 09:27 | Day surgery (SDC) | payer MEDICARE, SELFPAY ==
[2021-08-12 09:54] VITALS: BP 122/71; PULSE 67; RESP 17; TEMP 36.7; O2SAT 97; BMI 24.3
--- NOTE | 2021-08-12 10:16 | P.PN_ITS ---
[facility] Anesthesia Checklist - Patient Identification Patient Identification: Arm Band - Structural Data Admitted From: Home Planned Operative Procedure/s: colonoscopy Verified Documents: Surgical Consent, History and Physical - NPO Status Verified Time NPO: 00:00 - Additional verifications Anesthesia Reactions: No - Airway Assessment C-Spine Mobility Assessed: Yes (mp2) TMJ Mobility Assessed: Yes Dentition: Dentures-good fit - Neurological Assessment Level of Consciousness: Awake, Alert - Anesthesia Plan Anesthesia Risk discussed: Yes Anesthesia Plan: Verified ASA Class: III Anesthesia Type: MAC [facility] History I have reviewed the patient's past medical history: Yes Medical History: Reports:: BPH, Cancer (lung), Chronic Obstructive Pulmonary Disease (COPD), Coronary Artery Disease, Hyperlipidemia, Hypertension, Peripheral Artery Disease Denies:: Diabetes Mellitus Type 1, Diabetes Mellitus Type 2, Internal Pacemaker, MRSA, Seizures *Have you ever received a pneumonia vaccine?: Yes *Have you received a flu vaccine this season?: Yes Other Medical History: Reports: Chemotherapy, Radiation Therapy Anesthesia experience/problems:: nac Laterality Cases: Left: Arthroscopy Knee, Other Other Surgeries: Yes: Cardiac Catheterization, Cholecystectomy, Colonoscopy, Coronary Stent, Other. No: Pacemaker Amputation: No Fractures: No - *Social History Last grade of school completed: Some college Smoking Status: Former smoker Tobacco Type: cigarettes # Packs/Day (cigarettes): 1 #Yrs smoked (if former smoker): 30 Alcohol Intake: current Alcohol Intake Frequency:: a few times a week Substance Use Type: denies use *Occupational Status:: retired Housing: house Household Members: spouse *Travel in the last 8 weeks: None Family Hx:: Cancer
[2021-08-12 10:21] VITALS: O2SAT 97
[2021-08-12 10:35] VITALS: BP 88/53; PULSE 65; RESP 18; TEMP 36.2; O2SAT 94
--- NOTE | 2021-08-12 10:37 | HMH.SCOPE ---
- Procedure: Date: 08/12/21 Patient Date of :: 1945 Procedure Performed:: Colonoscopy with snare & biopsies Indications:: Screening colonoscopy Performing Provider:: Sofie Hoyt MD Referring Provider:: Sampson Delgado Sedation:: Propofol Procedure:: After placing the patient in the left lateral decubitus position, the colonoscopy was gently inserted into the rectum and under direct visualization advanced to the cecum which was identified by transillumination in the right lower quadrant, identification of the ileocecal valve, appendiceal orifice, and cecal strap. Color, texture, mucosa, and anatomy of the colon were carefully examined with the scope. Findings:: Anal canal: normal Rectum: normal Sigmoid colon: normal without polyps or inflammatory changes Descending colon: normal without polyps or inflammatory changes. 0.5 cm adenomatous polyp removed with snare. Splenic flexure: normal Transverse colon: normal without polyps or inflammatory changes Hepatic flexure: normal Ascending colon: normal without polyps or inflammatory changes. 0.3 cm adenomatous polyp removed with forceps. Cecum: normal Terminal ileum: not visualized Impression: Polyps of ascending & descending colon Specimens:: Polyps of ascending & descending colon Recommendations:: Repeat examination in about THREE years or so, sooner if clinically indicated. Complications:: None Estimated blood obtained (mL): 0
[2021-08-12 10:50] VITALS: BP 97/55; PULSE 67; RESP 18; O2SAT 97
[2021-08-12 11:05] VITALS: BP 102/63; PULSE 67; RESP 18; O2SAT 96
== END 2021-08-12 11:05 | disposition home or self-care (01) ==
LOC: OUTP 09:28
PROVIDERS: PCP Emergency Medicine; Visit Provider Internal Medicine Gastroenterology
PROC: 0DJD8ZZ Inspection of Lower Intestinal Tract, Via Natural or Artificial Opening Endoscopic (ICD-10-PCS; CPT 45378; principal; 2021-08-12 10:30)
DX: Z12.11 Encounter for screening for malignant neoplasm of colon (principal); K63.5 Polyp of colon; J44.9 Chronic obstructive pulmonary disease, unspecified; I25.10 Atherosclerotic heart disease of native coronary artery without angina pectoris; E78.5 Hyperlipidemia, unspecified; I10 Essential (primary) hypertension; I73.9 Peripheral vascular disease, unspecified; N40.0 Benign prostatic hyperplasia without lower urinary tract symptoms; Z85.118 Personal history of other malignant neoplasm of bronchus and lung; Z79.899 Other long term (current) drug therapy
CPT/HCPCS: 45380; 45385; 88305

== ENCOUNTER → 2021-12-17 10:44 | Outpatient (CLI) | payer MEDICARE, SELFPAY ==
[2021-12-17 11:44] LABS: Basophils # 0.1 K/mm3 (0-0.2); Basophils % 0.8 % (0.1-2.0); Eosinophils # 0.2 K/mm3 (0.0-0.4); Eosinophils % 2.5 % (0.1-12.0); Hematocrit 44.9 % (42.0-52.0); Hemoglobin 14.1 g/dL (14.1-18.0); Lymphocytes # 1.3 K/mm3 (0.7-4.5); Lymphocytes % 18.5 % (10-50); Mean Corpuscular HGB Conc 31.5 g/dL (31.8-35.4); Mean Corpuscular Hemoglobin 29.4 pg (27.0-31.2); Mean Corpuscular Volume 93.3 fl (80-94); Mean Platelet Volume 8.5 fl (7.4-10.4); Monocytes # 0.4 K/mm3 (0.1-1.0); Monocytes % 6.1 % (1.7-9.3); Neutrophils # 5.1 K/mm3 (1.8-7.8); Neutrophils % 72.2 % (37.0-80.0); Platelet Count 212 K/mm3 (142-424); Red Blood Count 4.81 M/mm3 (4.60-6.20); Red Cell Distribution Width 15.1 % (11.5-17.5); White Blood Count 7.1 K/mm3 (4.8-10.8)
[2021-12-17 12:23] LABS: Anion Gap 17.2 mEq/L (5-15); Blood Urea Nitrogen 17 mg/dl (9-20); Calcium 10.3 mg/dl (8.4-10.2); Carbon Dioxide 29 mmol/L (22.0-30.0); Chloride 98 mmol/L (98-107); Estimated Glomerular Filt Rate 65 ml/min (>60); GFR (African American) 79 ML/MIN (>60); Glucose 89 mg/dl (74-100); Potassium 5.2 mmoL/L (3.5-5.1); Sodium 139 mmol/L (136-145)
== END ==
PROVIDERS: PCP Emergency Medicine; Visit Provider Internal Medicine Cardiovascular Disease
DX: E78.2 Mixed hyperlipidemia (principal); I11.9 Hypertensive heart disease without heart failure; I20.0 Unstable angina; I73.9 Peripheral vascular disease, unspecified; Z85.118 Personal history of other malignant neoplasm of bronchus and lung; I63.9 Cerebral infarction, unspecified
CPT/HCPCS: 36415; 80048; 85025

== ENCOUNTER 2021-12-23 08:39 | Day surgery (SDC) | payer MEDICARE, SELFPAY ==
[2021-12-23] VITALS (17 sets, daily range): BP systolic 107–180; BP diastolic 49–98; PULSE 57–63; RESP 16–18; O2SAT 93–98; BMI 24.3
--- NOTE | 2021-12-23 07:38 | IR_ITS ---
APPROVED REPORT Patient Location: Outpatient [facility] Collector: JASEN Owens RT (R) PROCEDURES Selective coronary angiogram INDICATION Known coronary artery disease, Recurrent angina pectoris Informed consent was obtained prior to the procedure. COMPLICATIONS None Estimated Blood Loss: Less than 10 ML TECHNIQUE One percent lidocaine was used to anesthetize the right groin. The right femoral artery was accessed via the Seldinger technique. A 4-Cymro sheath was placed in the right femoral artery. The JL-4 and JR-4 catheter was also used to perform left heart catheterization left ventriculogram and selective coronary angiogram. At the end of the procedure the patient was transferred to the post-op holding area in stable condition for arterial sheath removal. ANGIOGRAPHIC RESULTS The left main artery Normal The left anterior descending artery Has a stent in the proximal segment which is widely patent however the distal portion of the stent has concentric 30 to 40% in-stent restenosis with remaining vessel being widely patent as it wraps the apex. There are minimal 20% mid vessel and distal luminal regularities The circumflex artery Is a nondominant yet still large vessel with a stent originating from the ostial segment which extends out to the midportion. The proximal portion of the stent has concentric 90% in-stent restenosis which then supplies to obtuse marginal arteries 1 small and 1 moderate in size The right coronary artery Is dominant and has stents in the proximal mid segment which are widely patent with minimal in-stent restenosis. Distally the vessel is widely patent The JUNIOR ventriculogram reveals Not performed The left ventricular end-diastolic pressure Not measured IMPRESSION Coronary disease as described above most notable for severe in-stent restenosis within multiple layers of drug-eluting stents within the proximal circumflex artery Patent LAD and right coronary artery PLAN 1. Continue with dual antiplatelet therapy 2. I discussed the case and shared details with Dr. Brandan Chung at the [facility] and patient will be referred for interventional brachytherapy of the circumflex artery 3. Continued standard therapy for ischemic heart disease with standard risk factor modification Electronically signed by : Carl Gaffney MD 12/23/2021 11:45:08
== END 2021-12-23 13:53 | disposition home or self-care (01) ==
LOC: CATHLAB 08:40
PROVIDERS: PCP Emergency Medicine; Visit Provider Internal Medicine
DX: I11.9 Hypertensive heart disease without heart failure; I25.118 Atherosclerotic heart disease of native coronary artery with other forms of angina pectoris; Z85.118 Personal history of other malignant neoplasm of bronchus and lung; I70.211 Atherosclerosis of native arteries of extremities with intermittent claudication, right leg; Z95.5 Presence of coronary angioplasty implant and graft; Z87.891 Personal history of nicotine dependence; Z79.899 Other long term (current) drug therapy; T82.855A Stenosis of coronary artery stent, initial encounter; Y83.1 Surgical operation with implant of artificial internal device as the cause of abnormal reaction of the patient, or of later complication, without mention of misadventure at the time of the procedure
CPT/HCPCS: 93458; 99152; C1725; C1769; J1644

== ENCOUNTER → 2021-12-27 08:48 | Outpatient (CLI) | payer MEDICARE, SELFPAY ==
[2021-12-27 09:51] LABS: Basophils % 0.5 % (0.1-2.0); Eosinophils # 0.2 K/mm3 (0.0-0.4); Eosinophils % 3.1 % (0.1-12.0); Hematocrit 43.7 % (42.0-52.0); Hemoglobin 13.8 g/dL (14.1-18.0); Lymphocytes # 1.2 K/mm3 (0.7-4.5); Lymphocytes % 17.2 % (10-50); Mean Corpuscular HGB Conc 31.5 g/dL (31.8-35.4); Mean Corpuscular Hemoglobin 29.1 pg (27.0-31.2); Mean Corpuscular Volume 92.2 fl (80-94); Mean Platelet Volume 8.3 fl (7.4-10.4); Monocytes # 0.4 K/mm3 (0.1-1.0); Neutrophils # 4.9 K/mm3 (1.8-7.8); Neutrophils % 73.2 % (37.0-80.0); Platelet Count 211 K/mm3 (142-424); Red Blood Count 4.73 M/mm3 (4.60-6.20); Red Cell Distribution Width 15.1 % (11.5-17.5); White Blood Count 6.7 K/mm3 (4.8-10.8)
[2021-12-27 10:48] LABS: Blood Urea Nitrogen 11 mg/dl (9-20); Carbon Dioxide 30 mmol/L (22.0-30.0); Chloride 102 mmol/L (98-107); Chol/HDL Ratio 3.1 (1-3.5); Cholesterol 115 mg/dl (140-200); Estimated Glomerular Filt Rate 65 ml/min (>60); GFR (African American) 79 ML/MIN (>60); Glucose 101 mg/dl (74-100); HDL Cholesterol 37 mg/dl (40-60); Sodium 139 mmol/L (136-145); Triglycerides 103 mg/dl (30-150); VLDL Cholesterol 21 mg/dL (0-40)
[2021-12-27 10:59] LABS: Direct LDL Cholesterol 61.03 mg/dL (100-129)
== END ==
PROVIDERS: PCP Emergency Medicine; Visit Provider Internal Medicine Cardiovascular Disease
DX: T82.8 Other specified complications of cardiac and vascular prosthetic devices, implants and grafts (principal)
CPT/HCPCS: 36415; 80048; 80061; 85025

== ENCOUNTER 2022-01-04 09:24 | Outpatient (CLI) | payer MEDICARE, SELFPAY ==
[2022-01-04 09:35] VITALS: BP 137/79; PULSE 89; RESP 18; O2SAT 97
== END 2022-01-04 09:35 | disposition home or self-care (01) ==
LOC: INF 09:25
PROVIDERS: PCP Emergency Medicine; Visit Provider Nurse Practitioner Family
DX: M85.89 Other specified disorders of bone density and structure, multiple sites (principal)
CPT/HCPCS: 96372; J0897

== ENCOUNTER → 2022-01-05 09:57 | Outpatient (CLI) | payer MEDICARE, SELFPAY ==
[2022-01-05 10:12] LABS: Adenovirus F 40/41, stool Not Detected (NotDetected); Astrovirus Not Detected (NotDetected); Campylobacter Not Detected (NotDetected); Clostridium Difficile A/B, PCR Not Detected (NotDetected); Cryptosporidium Not Detected (NotDetected); Cyclospora Cayetanesis Not Detected (NotDetected); Entamoeba histolytica Not Detected (NotDetected); Enteroaggregative E coli Not Detected (NotDetected); Enteropathogenic E coli Not Detected (NotDetected); Enterotoxigenic E coli Not Detected (NotDetected); Giardia lamblia Not Detected (NotDetected); Norovirus Not Detected (NotDetected); Plesimonas Shigalloides, PCR Not Detected (NotDetected); Rotavirus A Not Detected (NotDetected); Salmonella, PCR Not Detected (NotDetected); Sapovirus Not Detected (NotDetected); Shiga-like toxin E coli Not Detected (NotDetected); Shigella Enterovasive E coli Not Detected (NotDetected); Vibrio Cholerae Not Detected (NotDetected); Vibrio, PCR Not Detected (NotDetected); Yersinia Entercolitica, PCR Not Detected (NotDetected)
== END ==
PROVIDERS: PCP Emergency Medicine; Visit Provider Emergency Medicine
DX: R19.7 Diarrhea, unspecified (principal)
CPT/HCPCS: 87506

== ENCOUNTER → 2022-01-07 13:48 | Outpatient (CLI) | payer MEDICARE, SELFPAY ==
[2022-01-07 15:09] LABS: Anion Gap 16.9 mEq/L (5-15); Blood Urea Nitrogen 38 mg/dl (9-20); Calcium 9.9 mg/dl (8.4-10.2); Carbon Dioxide 21 mmol/L (22.0-30.0); Chloride 108 mmol/L (98-107); Estimated Glomerular Filt Rate 40 ml/min (>60); GFR (African American) 48 ML/MIN (>60); Glucose 130 mg/dl (74-100); Potassium 3.9 mmoL/L (3.5-5.1); Sodium 142 mmol/L (136-145)
[2022-01-07 15:18] LABS: Basophils % 0.4 % (0.1-2.0); Eosinophils # 0.1 K/mm3 (0.0-0.4); Eosinophils % 0.7 % (0.1-12.0); Hematocrit 44.4 % (42.0-52.0); Hemoglobin 14.7 g/dL (14.1-18.0); Lymphocytes # 1.2 K/mm3 (0.7-4.5); Lymphocytes % 14.5 % (10-50); Mean Corpuscular HGB Conc 33.2 g/dL (31.8-35.4); Mean Corpuscular Hemoglobin 29.1 pg (27.0-31.2); Mean Corpuscular Volume 87.8 fl (80-94); Mean Platelet Volume 7.9 fl (7.4-10.4); Monocytes # 0.3 K/mm3 (0.1-1.0); Monocytes % 3.7 % (1.7-9.3); Neutrophils # 6.5 K/mm3 (1.8-7.8); Neutrophils % 80.6 % (37.0-80.0); Platelet Count 228 K/mm3 (142-424); Red Blood Count 5.06 M/mm3 (4.60-6.20); Red Cell Distribution Width 14.6 % (11.5-17.5); White Blood Count 8.1 K/mm3 (4.8-10.8)
== END ==
PROVIDERS: PCP Emergency Medicine; Visit Provider Internal Medicine Cardiovascular Disease
DX: E78.2 Mixed hyperlipidemia (principal); I11.9 Hypertensive heart disease without heart failure; I20.0 Unstable angina; I73.9 Peripheral vascular disease, unspecified; R06.09 Other forms of dyspnea; Z92.3 Personal history of irradiation
CPT/HCPCS: 36415; 80048; 85025

== ENCOUNTER → 2022-01-21 14:39 | Outpatient (CLI) | payer MEDICARE, SELFPAY ==
[2022-01-21 15:07] LABS: Anion Gap 9.7 mEq/L (5-15); Blood Urea Nitrogen 17 mg/dl (9-20); Calcium 9.4 mg/dl (8.4-10.2); Carbon Dioxide 28 mmol/L (22.0-30.0); Chloride 105 mmol/L (98-107); Estimated Glomerular Filt Rate 59 ml/min (>60); GFR (African American) 72 ML/MIN (>60); Glucose 100 mg/dl (74-100); Potassium 3.7 mmoL/L (3.5-5.1); Sodium 139 mmol/L (136-145)
== END ==
PROVIDERS: PCP Emergency Medicine; Visit Provider Internal Medicine Cardiovascular Disease
DX: E78.2 Mixed hyperlipidemia (principal); I11.9 Hypertensive heart disease without heart failure; I25.118 Atherosclerotic heart disease of native coronary artery with other forms of angina pectoris; I73.9 Peripheral vascular disease, unspecified; R06.00 Dyspnea, unspecified; R06.01 Orthopnea; R06.02 Shortness of breath; Z85.118 Personal history of other malignant neoplasm of bronchus and lung; Z87.891 Personal history of nicotine dependence; Z92.3 Personal history of irradiation
CPT/HCPCS: 36415; 80048

== ENCOUNTER 2022-07-05 09:08 | Outpatient (CLI) | payer MEDICARE, SELFPAY ==
[2022-07-05 09:19] VITALS: BP 127/64; PULSE 67; RESP 18; TEMP 36.4; O2SAT 98
== END 2022-07-05 09:30 | disposition home or self-care (01) ==
LOC: INF 09:09
PROVIDERS: PCP Emergency Medicine; Visit Provider Emergency Medicine
DX: M81.0 Age-related osteoporosis without current pathological fracture (principal)
CPT/HCPCS: 96372; J0897

== ENCOUNTER 2022-08-15 09:23 | Emergency (ER) | payer MEDICARE, SELFPAY ==
[2022-08-15 09:24] VITALS: BP 122/75; PULSE 74; RESP 18; TEMP 36.6; O2SAT 98; BMI 24.3
--- NOTE | 2022-08-15 09:46 | EXP.UTC ---
Discharge Plan Disposition Patient Disposition: Home, Self-Care Condition: Good Prescriptions Prescriptions: New cephalexin 500 mg capsule 500 mg PO QID Qty: 40 0RF mupirocin 2 % ointment 1 applic topical TID 7 Days Qty: 15 0RF methylprednisolone 4 mg Tablets,Dose Pack 4 mg PO DIRECTED Qty: 21 0RF No Action nitroglycerin 0.4 mg tablet, sublingual 0.4 mg SL Q5M PRN (Reason: chest pain) Qty: 20 0RF Rx Instructions: do not exceed 3 doses per episode ranolazine 500 mg tablet extended release 12 hr 500 mg PO BID Qty: 180 1RF clopidogrel 75 mg tablet 75 mg PO DAILY Qty: 90 3RF Prolia 60 mg/mL syringe 60 mg SQ [id number] aspirin 81 mg tablet,delayed release (DR/EC) 81 mg PO DAILY finasteride 5 mg tablet 5 mg PO DAILY Qty: 90 1RF spironolactone 25 mg tablet 25 mg PO DAILY Qty: 90 2RF furosemide 20 mg tablet 20 mg PO DAILY Qty: 90 3RF metoprolol succinate [Toprol XL] 25 mg tablet extended release 24 hr 25 mg PO DAILY Qty: 90 2RF Lactobacillus acidophilus 1 EACH capsule 1 each PO DAILY atorvastatin 80 MG tablet 80 mg PO HS Referrals Follow up/Referrals: Sampson Delgado MD [Primary Care Provider] - See instructions Activity Restrictions/Add. Instructions Additional Instructions/Restrictions: Keep the wound clean and dry. Watch the wound for signs of worsening infection, such as redness, swelling, drainage, fever. etc. Take tylenol or ibuprofen for pain. Follow up with your regular doctor. GO TO THE ER FOR ANY WORSENING SYMPTOMS OR CONCERNS. Clinical Impressions Clinical Impression: Cellulitis, Bug bite with infection Instructions Patient Instructions: Cellulitis Discharge ED Provider: Brock Hamilton [facility] General Stated complaint: possible bug bite on right arm Mode of Arrival: Ambulatory Source of Information: Patient Limitations: No Limitations Time Seen by Provider: 08/15/22 09:46 Description of Symptoms (Recalled from Triage Doc. by RN): Patient reports a bug bite to right arm since Monday. HEENT Symptoms (Recalled from RN notes): No Resp Symptoms (Recalled from RN notes): No Skin Symptoms (Recalled from RN notes): Yes MS Symptoms (Recalled from RN notes): No Functional Status (Recalled from RN notes): wnl History of Present Illness Provider Complaint: On his right upper arm there is a red area that is painful to touch and itches. He believes that he was bit by a bug and now it is getting infected. Related Data Home Medications Medication Instructions Recorded Confirmed Lactobacillus acidophilus 100 1 each PO DAILY PROBIOTIC 05/17/18 07/18/22 million cell capsule denosumab 60 mg/mL subcutaneous 60 mg SQ [id number] Osteoporosis 06/13/19 07/18/22 syringe (Prolia) atorvastatin 80 mg tablet 80 mg PO HS High cholesterol 08/12/21 07/18/22 aspirin 81 mg tablet,delayed 81 mg PO DAILY Blood thinner 01/21/22 07/18/22 release Previous Rx's Medication Instructions Recorded nitroglycerin 0.4 mg sublingual 0.4 mg sublingual Q5M PRN chest 03/18/21 tablet pain #20 tabs spironolactone 25 mg tablet 25 mg PO DAILY Fluid #90 tabs 04/05/21 furosemide 20 mg tablet 20 mg PO DAILY Fluid #90 tabs 10/06/21 finasteride 5 mg tablet 5 mg PO DAILY prostate #90 tabs 03/14/22 metoprolol succinate 25 mg 25 mg PO DAILY heart rate #90 tabs 06/09/22 tablet,extended release 24 hr (Toprol XL) clopidogrel 75 mg tablet 75 mg PO DAILY antiplatelet #90 07/18/22 tabs ranolazine 500 mg tablet,extended 500 mg PO BID angina #180 tabs 07/18/22 release,12 hr cephalexin 500 mg capsule 500 mg PO QID #40 caps 08/15/22 methylprednisolone 4 mg tablets in 4 mg PO DIRECTED #21 tabs 08/15/22 a dose pack mupirocin 2 % topical ointment 1 applic topical TID 7 days #15 08/15/22 grams Allergies Allergy/AdvReac Type Severity Reaction Status Date / Time No Known Allergies Allergy Verified 07/18/22 09:59 Worke
[2022-08-15 09:52] VITALS: BP 122/75; PULSE 74; RESP 18; TEMP 36.6; O2SAT 98
== END 2022-08-15 09:53 | disposition home or self-care (01) ==
PROVIDERS: Emergency Provider Nurse Practitioner Family; PCP Emergency Medicine
DX: L03.113 Cellulitis of right upper limb (principal); M81.0 Age-related osteoporosis without current pathological fracture; I25.10 Atherosclerotic heart disease of native coronary artery without angina pectoris; I11.9 Hypertensive heart disease without heart failure; I73.89 Other specified peripheral vascular diseases; Z85.118 Personal history of other malignant neoplasm of bronchus and lung; Z87.891 Personal history of nicotine dependence; W57.XXXA Bitten or stung by nonvenomous insect and other nonvenomous arthropods, initial encounter
CPT/HCPCS: 99204; 99212; G0463

== ENCOUNTER 2022-08-19 07:58 | Day surgery (SDC) | payer MEDICARE, SELFPAY ==
[2022-08-19] VITALS (15 sets, daily range): BP systolic 98–145; BP diastolic 55–71; PULSE 54–63; RESP 16–19; O2SAT 92–98; BMI 25.0
--- NOTE | 2022-08-19 07:19 | IR_ITS ---
APPROVED REPORT Patient Location: Outpatient PROCEDURES Left heart catheterization Left ventriculogram Selective coronary angiogram Drug-eluting stent deployment to the proximal mid circumflex artery INDICATION Accelerated angina pectoris, Coronary artery disease, In-stent restenosis following brachytherapy Informed consent was obtained prior to the procedure. COMPLICATIONS None Estimated Blood Loss: Less than 10 ML TECHNIQUE One percent lidocaine used to anesthetize the right anterior aspect of the wrist. The right radial artery was accessed via the Seldinger technique. A 6 [place] sheath was placed in the right radial artery. 150 mg magnesium sulfate, 800 mcg of nitroglycerin, 1mg Lidocaine and 5000 U Heparin were given through the arterial sheath. The papa catheter was also used to perform left heart catheterization, left ventriculogram and selective coronary angiogram. At the end the diagnostic angiogram therapeutic heparin was administered giving a therapeutic ACT and the guide catheter was placed in left main artery followed by Choice PT extra-support wire down the circumflex artery. A 2.25 x 12 mm Dmitri frontier stent was deployed at 24 nery reducing the stenosis to 0%. An additional 2.5 x 22 mm Dmitri frontier stent was placed proximal to the for stent yet still overlapping and deployed at 20 and 24 nery reducing the stenosis. The balloon was advanced and then deployed at 20 nery to post dilate. Excellent angiographic results were obtained with YEVGENIY-3 flow being present down the vessel before and after the procedure. At the end the procedure the apparatus was removed the sheath was removed and hemostasis was achieved using Angio-Seal device after 2 Perclose devices failed. The patient was transferred to the postop putting in stable condition ANGIOGRAPHIC RESULTS The left main artery Has a stent in the mid to distal segment which is widely patent free of in-stent restenosis with excellent proximal distal transitioning The left anterior descending artery Has a stent which originates off the left main artery which is widely patent with 30% distal eccentric in-stent restenosis. There is excellent distal transitioning. The remaining mid and distal LAD is widely patent. The circumflex artery Has a stent originating off the left main artery which is widely patent in the proximal segment and then has greater than 90% in-stent restenosis with a distal 90% in-stent restenosis. It supplies 2 obtuse marginal arteries a small to moderate-sized obtuse marginal artery The right coronary artery Is a dominant vessel has a stent in the proximal to mid segment. Just proximal to the stent is a 30% concentric in-stent restenosis. The stent itself has minimal in-stent restenosis. There is excellent distal transitioning. Distally the vessel has diffuse 30% stenosis The JUNIOR ventriculogram reveals Normal 65% The left ventricular end-diastolic pressure 22 mmHg IMPRESSION Coronary artery disease as described above Successful stenting of the circumflex artery critical disease reduced to 0% with 2 contiguous drug-eluting stents in an area that was previously treated with brachytherapy Normal ejection fraction Elevated LVEDP PLAN 1. Dual antiplatelet therapy 2. Risk factor modification 3. Cardiac rehabilitation 4. Avoidance of tobacco products 5. LDL less than 55 to be achieved with high intensity statin Electronically signed by : Carl Gaffney MD 08/19/2022 15:00:09
[2022-08-19 08:26] LABS: Basophils # 0.1 K/mm3 (0-0.2); Basophils % 0.7 % (0.1-2.0); Eosinophils # 0.1 K/mm3 (0.0-0.4); Eosinophils % 0.7 % (0.1-12.0); Hematocrit 48.6 % (42.0-52.0); Hemoglobin 15.2 g/dL (14.1-18.0); Lymphocytes # 1.6 K/mm3 (0.7-4.5); Lymphocytes % 12.7 % (10-50); Mean Corpuscular HGB Conc 31.3 g/dL (31.8-35.4); Mean Corpuscular Hemoglobin 28.8 pg (27.0-31.2); Mean Platelet Volume 8.3 fl (7.4-10.4); Monocytes # 0.8 K/mm3 (0.1-1.0); Monocytes % 6.2 % (1.7-9.3); Neutrophils # 9.7 K/mm3 (1.8-7.8); Neutrophils % 79.7 % (37.0-80.0); Platelet Count 244 K/mm3 (142-424); Red Blood Count 5.28 M/mm3 (4.60-6.20); Red Cell Distribution Width 14.8 % (11.5-17.5); White Blood Count 12.2 K/mm3 (4.8-10.8)
[2022-08-19 08:44] LABS: Anion Gap 11.6 mEq/L (5-15); Blood Urea Nitrogen 19 mg/dl (9-20); Calcium 9.6 mg/dl (8.4-10.2); Carbon Dioxide 30 mmol/L (22.0-30.0); Chloride 102 mmol/L (98-107); Creatinine Clearance Estimated 56 mL/min (50-200); Estimated Glomerular Filt Rate 59 ml/min (>60); GFR (African American) 71 ML/MIN (>60); Glucose 122 mg/dl (74-100); Potassium 4.6 mmoL/L (3.5-5.1); Sodium 139 mmol/L (136-145)
[2022-08-19 10:08] LABS: CATHL Activated Clotting Time 327 SEC (74-125)
--- NOTE | 2022-08-19 12:56 | HMH.PHACL ---
PHA Human Capital Manager Discharge Med Administrative Job Titles: Carlo Mily Hubbardt has received discharge medication counseling on the following medications: ASPIRIN PLAVIX ATORVASTATIN METOPROLOL HOLDING ACEI/ARB AT THIS TIME PER CARDIOLOGY. NO NEW MEDICATIONS FOR PATIENT AT THIS TIME. PATIENT HAD NO QUESTIONS OR CONCERNS. -PERRY HEAD, ADOLFOD
== END 2022-08-19 13:22 | disposition home or self-care (01) ==
PROVIDERS: PCP Emergency Medicine; Visit Provider Internal Medicine
DX: E78.5 Hyperlipidemia, unspecified (principal); I11.9 Hypertensive heart disease without heart failure; I25.110 Atherosclerotic heart disease of native coronary artery with unstable angina pectoris; I73.9 Peripheral vascular disease, unspecified; R06.00 Dyspnea, unspecified; Z87.891 Personal history of nicotine dependence; Z79.899 Other long term (current) drug therapy; Z79.02 Long term (current) use of antithrombotics/antiplatelets; Z79.01 Long term (current) use of anticoagulants; T82.855A Stenosis of coronary artery stent, initial encounter; Z82.49 Family history of ischemic heart disease and other diseases of the circulatory system; C34.90 Malignant neoplasm of unspecified part of unspecified bronchus or lung
CPT/HCPCS: 80048; 85025; 85347; 92928; 93458; 99152; 99153; C1725; C1760; C1769; C1874; C1876; C9600; J1644; Q9967

== ENCOUNTER → 2022-08-29 08:27 | Outpatient (CLI) | payer MEDICARE, SELFPAY ==
--- NOTE | 2022-08-29 | CA_ITS ---
FINAL REPORT CLINICAL HISTORY: Rt groin pain post cath 08/22/22 with right groin access. Patient states he was unable to walk today because the pain is so great down the entire length of his right leg. CAD. FINDINGS: ULTRASOUND VASCULAR ARTERIAL LOWER EXTREMITY LIMITED, RIGHT FINDINGS: Limited Doppler evaluation of the groin demonstrates no evidence of pseudoaneurysm. There is no evidence of AV fistula. Visualized portions of the common femoral artery and vein are patent. There is no hematoma appreciated. IMPRESSION: No evidence of pseudoaneurysm. Reviewed, Interpreted and Dictated by Lang Candelaria MD Transcribed by Frida Gilbert Authenticated and [facility]
[2022-08-29 08:45] LABS: Basophils # 0.1 K/mm3 (0-0.2); Basophils % 0.5 % (0.1-2.0); Eosinophils # 0.2 K/mm3 (0.0-0.4); Eosinophils % 2.3 % (0.1-12.0); Hematocrit 48.2 % (42.0-52.0); Lymphocytes # 1.4 K/mm3 (0.7-4.5); Mean Corpuscular HGB Conc 31.1 g/dL (31.8-35.4); Mean Corpuscular Hemoglobin 29.1 pg (27.0-31.2); Mean Corpuscular Volume 93.7 fl (80-94); Mean Platelet Volume 8.4 fl (7.4-10.4); Monocytes # 0.6 K/mm3 (0.1-1.0); Monocytes % 6.1 % (1.7-9.3); Neutrophils % 76.1 % (37.0-80.0); Platelet Count 192 K/mm3 (142-424); Red Blood Count 5.15 M/mm3 (4.60-6.20); Red Cell Distribution Width 14.8 % (11.5-17.5); White Blood Count 9.2 K/mm3 (4.8-10.8)
[2022-08-29 09:43] LABS: Anion Gap 8.5 mEq/L (5-15); Blood Urea Nitrogen 12 mg/dl (9-20); Calcium 9.3 mg/dl (8.4-10.2); Carbon Dioxide 28 mmol/L (22.0-30.0); Chloride 109 mmol/L (98-107); Estimated Glomerular Filt Rate 59 ml/min (>60); GFR (African American) 71 ML/MIN (>60); Glucose 105 mg/dl (74-100); Potassium 4.5 mmoL/L (3.5-5.1); Sodium 141 mmol/L (136-145)
== END ==
PROVIDERS: PCP Emergency Medicine; Visit Provider Internal Medicine
DX: E78.5 Hyperlipidemia, unspecified (principal); I11.9 Hypertensive heart disease without heart failure; I73.9 Peripheral vascular disease, unspecified; R06.00 Dyspnea, unspecified; I20.8 Other forms of angina pectoris; M79.604 Pain in right leg
CPT/HCPCS: 80048; 85025; 93926

== ENCOUNTER 2022-09-05 11:59 | Outpatient (RCR) | payer MEDICARE, SELFPAY ==
--- NOTE | 2022-09-12 13:52 | ECG_ITS ---
APPROVED REPORT Exam: Resting ECG HR:78 bpm ECG Measurements Heart Rate 78 AXES WV 164 P 32 QRSd 90 QRS 47 QT 370 T 75 QTc 403 Conclusion SINUS RHYTHM NORMAL ECG UNCONFIRMED REPORT Electronically signed by : Lakhwinder Miranda MD 09/13/2022 20:49:34
== END 2022-10-13 13:00 | disposition home or self-care (01) ==
LOC: PT 11:59
PROVIDERS: Visit Provider Internal Medicine
DX: I25.10 Atherosclerotic heart disease of native coronary artery without angina pectoris (principal); Z95.5 Presence of coronary angioplasty implant and graft
CPT/HCPCS: 93005; 93798

== ENCOUNTER → 2022-09-30 07:37 | Outpatient (CLI) | payer MEDICARE, SELFPAY ==
--- NOTE | 2022-09-30 07:38 | CT_ITS ---
FINAL REPORT CLINICAL HISTORY: pain in right leg, claudication right leg COMPARISON: 07/28/2021 FINDINGS: Post contrast axial imaging of the aorta and bilateral lower extremity was obtained and reviewed. This study was performed with techniques to keep radiation doses as low as reasonably achievable (ALARA). Individualized dose reduction techniques using automated exposure control or adjustment of mA and/or kV according to the patient's size were employed. The celiac and SMA are patent. There are widely patent single renal arteries. There are dense vascular calcifications within the abdominal aorta and moderate mural thrombus. There is high-grade stenosis of the proximal left common iliac artery. Findings are well seen on images 28 330 of series 3. There are dense vascular calcifications within the external iliac arteries. Right: There is densely calcified plaque in the right common femoral artery with approximately 50% stenosis. The SFA appears patent, continuous with patent popliteal artery. There is poor contrast delivery into the tibial vessels. Left: There is moderate stenosis of the left external iliac artery with approximately 50% stenosis. The left SFA is patent, continuous with patent popliteal artery. There is poor contrast delivery into the tibial vessels. Review of the remaining abdomen and pelvis demonstrates: Surgical clips in the right upper quadrant. The visualized liver and spleen are unremarkable. On images 7 through 9 of series 3 there is a rounded fat attenuation focus in the lumen of the proximal duodenum. On coronal images, there appears to be a small associated intussusception and this fatty structure is presumed to represent the lead point. On the prior images, the fatty lesion in the duodenum was present but the intussusception was not. There is a 1.5 cm left adrenal nodule with mean attenuation value of 15 Hounsfield units, indeterminate. There is a 3.7 cm left renal cyst. There are scattered diverticuli throughout the descending and sigmoid colon. IMPRESSION: Intussusception with fatty lead point. Consider upper endoscopy. 1.5 cm indeterminate left adrenal mass. High-grade stenosis proximal left common iliac artery and moderate stenosis left external iliac artery. 50% stenosis right common femoral artery. Reviewed, Interpreted and Dictated by Lennox Boudreaux MD Transcribed by Jeri Sheppard Authenticated and [facility]
[2022-09-30 08:07] LABS: Blood Urea Nitrogen 27 mg/dl (9-20); Estimated Glomerular Filt Rate 49 ml/min (>60); GFR (African American) 60 ML/MIN (>60)
== END ==
PROVIDERS: PCP Emergency Medicine; Visit Provider Physician Assistant
DX: E78.5 Hyperlipidemia, unspecified (principal); I11.9 Hypertensive heart disease without heart failure; I25.10 Atherosclerotic heart disease of native coronary artery without angina pectoris; I73.9 Peripheral vascular disease, unspecified; M79.604 Pain in right leg; R06.00 Dyspnea, unspecified; Z92.3 Personal history of irradiation
CPT/HCPCS: 36415; 75635; 82565; 84520; Q9967

== ENCOUNTER → 2023-01-10 07:43 | Outpatient (CLI) | payer MEDICARE, SELFPAY ==
[2023-01-10 16:29] LABS: Adenovirus,PCR Not Detected (NotDetected); Coronavirus 229E Not Detected (NotDetected); Coronavirus NL63 Not Detected (NotDetected); Coronavirus OC43 Not Detected (NotDetected); Coronovirus HKU1,PCR Not Detected (NotDetected); Human Metapneumovirus Not Detected (NotDetected)
[2023-01-10 16:30] LABS: Bordetella Pertussis Not Detected (NotDetected); Chlamydophila Pneumoniae, PCR Not Detected (NotDetected); Coronavirus 19, PCR Not Detected (NotDetected); Influenza A, PCR Not Detected (NotDetected); Influenza AH1, 2009 Not Detected (NotDetected); Influenza AH1, PCR Not Detected (NotDetected); Influenza AH3,PCR Not Detected (NotDetected); Influenza B, PCR Not Detected (NotDetected); Parainfluenza 1, PCR Not Detected (NotDetected); Parainfluenza 2, PCR Not Detected (NotDetected); Parainfluenza 3, PCR Not Detected (NotDetected); Parainfluenza 4, PCR Not Detected (NotDetected); Respiratory Syncytial Virus Not Detected (NotDetected); Rhinovirus/Enterovirus Not Detected (NotDetected)
[2023-01-14 10:50] LABS: Mycoplasma Pneumoniae, PCR Not Detected (NotDetected)
== END ==
PROVIDERS: PCP Internal Medicine; Visit Provider Internal Medicine
DX: J01.90 Acute sinusitis, unspecified (principal)
CPT/HCPCS: 87581; 87632; 87635; 87798

== ENCOUNTER 2023-01-10 08:53 | Outpatient (CLI) | payer MEDICARE, SELFPAY ==
[2023-01-10 09:00] VITALS: BP 142/68; PULSE 72; RESP 18; TEMP 36.7; O2SAT 98
== END 2023-01-10 09:09 | disposition home or self-care (01) ==
LOC: INF 08:55
PROVIDERS: PCP Internal Medicine; Visit Provider Emergency Medicine
DX: M81.0 Age-related osteoporosis without current pathological fracture (principal); J01.90 Acute sinusitis, unspecified; J02.9 Acute pharyngitis, unspecified; R09.89 Other specified symptoms and signs involving the circulatory and respiratory systems; R05.8 Other specified cough
CPT/HCPCS: 87581; 87632; 87635; 87798; 96372; J0897

== ENCOUNTER → 2023-01-26 07:07 | Outpatient (CLI) | payer MEDICARE, SELFPAY | LOC: LAB.DROPOF 01-27 07:08 | PROVIDERS: PCP Internal Medicine; Visit Provider Internal Medicine | DX: J01.90 Acute sinusitis, unspecified (principal); R05.9 Cough, unspecified; B96.29 Other Escherichia coli [E. coli] as the cause of diseases classified elsewhere; B96.89 Other specified bacterial agents as the cause of diseases classified elsewhere | CPT/HCPCS: 87070; 87205 ==

== ENCOUNTER 2023-02-16 16:36 | Outpatient (CLI) | payer MEDICARE, SELFPAY ==
--- NOTE | 2023-02-16 16:40 | XR_ITS ---
PROCEDURE INFORMATION: Exam: XR Chest Exam date and time: 02/16/2023 4:42 PM Age: 77 years old Clinical indication: Cough and shortness of breath; Patient HX: Productive cough-yellow/green phlegm. Drainage. SOA. Chest pain when coughing. HX of copd & lung cancer (2014 & 2019). Stents placed 3 yrs ago. ; Additional info: Cough, shortness of breath TECHNIQUE: Imaging protocol: Radiologic exam of the chest. Views: 2 views. COMPARISON: CR XR CHEST PORTABLE 05/07/2021 6:50 AM FINDINGS: Lungs: Unchanged scarring at the left lung apex. The remainder of the lungs are clear. Pleural spaces: Unchanged left apical pleural thickening. No pleural effusion or pneumothorax. Heart/Mediastinum: Coronary artery stents in place. No cardiomegaly. Bones/joints: Unremarkable. IMPRESSION: No acute findings.
== END 2023-02-16 23:59 ==
PROVIDERS: PCP Internal Medicine; Visit Provider Internal Medicine
DX: R05.9 Cough, unspecified (principal); R06.02 Shortness of breath
CPT/HCPCS: 71046; 87070; 87205

== ENCOUNTER 2023-03-13 08:19 | Outpatient (CLI) | payer MEDICARE, SELFPAY ==
[2023-03-13 08:40] LABS: Basophils # 0.1 K/mm3 (0-0.2); Basophils % 0.8 % (0.1-2.0); Eosinophils # 0.2 K/mm3 (0.0-0.4); Eosinophils % 1.8 % (0.1-12.0); Hemoglobin 14.2 g/dL (14.1-18.0); Lymphocytes # 2.1 K/mm3 (0.7-4.5); Mean Corpuscular HGB Conc 32.4 g/dL (31.8-35.4); Mean Corpuscular Hemoglobin 29.9 pg (27.0-31.2); Mean Corpuscular Volume 92.2 fl (80-94); Monocytes # 0.5 K/mm3 (0.1-1.0); Monocytes % 5.8 % (1.7-9.3); Neutrophils # 6.4 K/mm3 (1.8-7.8); Neutrophils % 68.6 % (37.0-80.0); Platelet Count 207 K/mm3 (142-424); Red Blood Count 4.77 M/mm3 (4.60-6.20); Red Cell Distribution Width 15.2 % (11.5-17.5); White Blood Count 9.3 K/mm3 (4.8-10.8)
[2023-03-13 09:20] LABS: Chloride 106 mmol/L (98-107); Potassium 4.3 mmoL/L (3.5-5.1); Sodium 138 mmol/L (136-145)
[2023-03-13 09:23] LABS: Alanine Aminotransferase 21 U/L (12-78); Albumin Level 3.7 g/dl (3.5-5.0); Alkaline Phosphatase 106 U/L (38-126); Anion Gap 8.3 mEq/L (5-15); Aspartate Amino Transferase 24 U/L (17-59); Bilirubin,Direct 0.1 mg/dl (0.0-0.4); Bilirubin,Indirect 0.6 mg/dL (0.0-0.9); Bilirubin,Total 0.7 mg/dl (0.2-1.3); Bilirubin,Unconjugated 0.5 mg/dL (0.0-1.1); Blood Urea Nitrogen 15 mg/dl (9-20); Calcium 9.3 mg/dl (8.4-10.2); Carbon Dioxide 28 mmol/L (22.0-30.0); Chol/HDL Ratio 3.8 (1-3.5); Cholesterol 149 mg/dl (140-200); Estimated Glomerular Filt Rate 59 ml/min (>60); GFR (African American) 71 ML/MIN (>60); Glucose 111 mg/dl (74-100); HDL Cholesterol 39 mg/dl (40-60); Total Protein,Serum 6.3 g/dl (6.3-8.2); Triglycerides 132 mg/dl (30-150); VLDL Cholesterol 26 mg/dL (0-40)
[2023-03-13 09:35] LABS: Direct LDL Cholesterol 81.94 mg/dL (100-129)
[2023-03-13 09:53] LABS: Thyroid Stimulating Hormone 1.95 uIU/mL (0.465-4.68)
== END 2023-03-13 23:59 ==
LOC: LAB 08:20
PROVIDERS: PCP Internal Medicine; Visit Provider Physician Assistant
DX: E78.2 Mixed hyperlipidemia (principal); I11.9 Hypertensive heart disease without heart failure; I25.118 Atherosclerotic heart disease of native coronary artery with other forms of angina pectoris; I73.9 Peripheral vascular disease, unspecified; J44.9 Chronic obstructive pulmonary disease, unspecified; R06.02 Shortness of breath; R42 Dizziness and giddiness; Z85.118 Personal history of other malignant neoplasm of bronchus and lung; Z87.891 Personal history of nicotine dependence
CPT/HCPCS: 36415; 80048; 80061; 80076; 84439; 84443; 85025

== ENCOUNTER 2023-04-27 07:49 | Day surgery (SDC) | payer MEDICARE, SELFPAY ==
[2023-04-27] VITALS (11 sets, daily range): BP systolic 97–139; BP diastolic 54–90; PULSE 59–69; RESP 16–20; TEMP 36.2; O2SAT 90–100; BMI 26.8
--- NOTE | 2023-04-27 07:04 | IR_ITS ---
APPROVED REPORT Patient Location: Outpatient PROCEDURES Selective coronary angiogram INDICATION Known coronary artery disease, Angina pectoris Informed consent was obtained prior to the procedure. COMPLICATIONS NONE Estimated Blood Loss: LESS THAN 10 ML TECHNIQUE One percent lidocaine used to anesthetize the right anterior aspect of the wrist. The right radial artery was accessed via the Seldinger technique. A 6 Citizen [place] sheath was placed in the right radial artery. 2.5 mg of Verapamil, 800 mcg of nitroglycerin, 1mg Lidocaine and 5000 U Heparin were given through the arterial sheath. The papa catheter was also used to perform selective coronary angiogram. At the end of the procedure the sheath was removed good hemostasis was achieved using Traclet band, patient was transferred to the postop holding area in stable condition. ANGIOGRAPHIC RESULTS The left main artery Has a widely patent proximal stent which extends into the LAD. The left anterior descending artery Has a stent which extends from the left main artery which has a concentric 80% in-stent restenotic lesion. The remaining LAD is widely patent The circumflex artery Is nondominant gives rise to 2 medium sized obtuse marginal arteries. There was a 90% concentric in-stent restenotic lesion just proximal to the first and second obtuse marginal artery The right coronary artery Is a dominant vessel and has stents in the proximal and mid segment. There are 50% stenoses throughout the proximal portion with a focal distal 70% stenosis. The JUNIOR ventriculogram reveals Not performed The left ventricular end-diastolic pressure Not measured IMPRESSION Severe three-vessel coronary artery disease PLAN 1. Recommend pulmonary function test today 2. I would like patient to see [facility] pulmonology to determine if patient's lungs will allow for bypass surgery 3. Refer to [facility] Dr. Aguilar for bypass surgery evaluation 4. Maximize antianginal medications Electronically signed by : Carl Gaffney MD 04/27/2023 12:55:13
[2023-04-27 08:32] LABS: Basophils # 0.1 K/mm3 (0-0.2); Eosinophils # 0.2 K/mm3 (0.0-0.4); Hematocrit 42.2 % (42.0-52.0); Hemoglobin 13.2 g/dL (14.1-18.0); Lymphocytes # 1.9 K/mm3 (0.7-4.5); Lymphocytes % 22.8 % (10-50); Mean Corpuscular HGB Conc 31.2 g/dL (31.8-35.4); Mean Corpuscular Hemoglobin 29.5 pg (27.0-31.2); Mean Corpuscular Volume 94.3 fl (80-94); Mean Platelet Volume 8.3 fl (7.4-10.4); Monocytes # 0.5 K/mm3 (0.1-1.0); Neutrophils # 5.6 K/mm3 (1.8-7.8); Neutrophils % 68.2 % (37.0-80.0); Platelet Count 245 K/mm3 (142-424); Red Blood Count 4.48 M/mm3 (4.60-6.20); Red Cell Distribution Width 15.2 % (11.5-17.5); White Blood Count 8.1 K/mm3 (4.8-10.8)
[2023-04-27 08:40] LABS: Anion Gap 11.1 mEq/L (5-15); Blood Urea Nitrogen 15 mg/dl (9-20); Calcium 9.7 mg/dl (8.4-10.2); Carbon Dioxide 27 mmol/L (22.0-30.0); Chloride 106 mmol/L (98-107); Creatinine Clearance Estimated 52 mL/min (50-200); Estimated Glomerular Filt Rate 54 ml/min (>60); GFR (African American) 65 ML/MIN (>60); Glucose 104 mg/dl (74-100); Potassium 4.1 mmoL/L (3.5-5.1); Sodium 140 mmol/L (136-145)
[2023-04-27] MEDS: LIDOCAINE 1% 10ML MDV 20 ML IJ (10:12)
[2023-04-27] MEDS: VERAPAMIL 2.5MG/ML 2ML VIAL 2.5 MG IV (10:12)
[2023-04-27] MEDS: diphenhydrAMINE 50MG/ML VIAL 50 MG IV (10:12)
[2023-04-27] MEDS: HEPARIN 1,000 UNITS/500ML NS (CATH LAB) 3000 UNIT IV (10:12)
[2023-04-27] MEDS: HEPARIN 1,000 UNITS/ML 10ML VIAL (CATH LAB) 10000 UNIT IV (10:13)
[2023-04-27] MEDS: NITROGLYCERIN 800MCG/8ML SYR (CATH LAB) 800 MCG IA (10:13)
[2023-04-27] MEDS: MIDAZOLAM HCL 1MG/1ML 5ML VIAL 1 MG IV (10:38)
[2023-04-27] MEDS: FENTANYL 100MCG/2ML VIAL 50 MCG IV (10:38)
[2023-04-27] MEDS: IOPAMIDOL-370 (76%);100ML BOTTLE 50 ML IV (15:08)
== END 2023-04-27 14:02 | disposition home or self-care (01) ==
PROVIDERS: PCP Internal Medicine; Visit Provider Internal Medicine
DX: E78.2 Mixed hyperlipidemia; R06.02 Shortness of breath; I73.9 Peripheral vascular disease, unspecified; R42 Dizziness and giddiness; I11.9 Hypertensive heart disease without heart failure; I25.118 Atherosclerotic heart disease of native coronary artery with other forms of angina pectoris; Z92.3 Personal history of irradiation; T82.855A Stenosis of coronary artery stent, initial encounter; Z95.5 Presence of coronary angioplasty implant and graft; Z79.899 Other long term (current) drug therapy; Y83.1 Surgical operation with implant of artificial internal device as the cause of abnormal reaction of the patient, or of later complication, without mention of misadventure at the time of the procedure
CPT/HCPCS: 80048; 85025; 93454; 99152; C1725; C1769; J1644; Q9967

== ENCOUNTER 2023-05-01 09:41 | Outpatient (CLI) | payer MEDICARE, SELFPAY ==
[2023-05-01 10:40] VITALS: PULSE 87; PULSE 90
[2023-05-01] MEDS: ALBUTEROL 0.083% 2.5 MG/3 ML NEB IH (10:40)
== END 2023-05-01 23:59 ==
LOC: RT 09:42
PROVIDERS: PCP Internal Medicine; Visit Provider Internal Medicine
DX: R06.09 Other forms of dyspnea (principal)
CPT/HCPCS: 94060; 94618; 94640; 94726; 94729

== ENCOUNTER 2023-06-19 09:53 | Outpatient (RCR) | payer MEDICARE, SELFPAY | END 2023-07-31 11:30 | disposition home or self-care (01) | LOC: PT 09:53 | PROVIDERS: Visit Provider Thoracic Surgery (Cardiothoracic Vascular Surgery) | DX: I25.10 Atherosclerotic heart disease of native coronary artery without angina pectoris (principal); Z95.1 Presence of aortocoronary bypass graft | CPT/HCPCS: 93798 ==

== ENCOUNTER 2023-07-12 09:17 | Outpatient (CLI) | payer MEDICARE, SELFPAY ==
[2023-07-12] MEDS: DENOSUMAB 60 MG/ML SYRINGE SQ (09:30)
[2023-07-12 09:31] VITALS: BP 148/68; PULSE 91; RESP 18; TEMP 36.4; O2SAT 99
== END 2023-07-12 09:31 | disposition home or self-care (01) ==
LOC: INF 09:18
PROVIDERS: PCP Nurse Practitioner Family; Visit Provider Nurse Practitioner Family
DX: M81.0 Age-related osteoporosis without current pathological fracture (principal); Z79.620 Long term (current) use of immunosuppressive biologic
CPT/HCPCS: 96372; J0897

== ENCOUNTER 2023-07-14 13:21 | Outpatient (CLI) | payer MEDICARE, SELFPAY ==
--- NOTE | 2023-07-14 13:22 | CA_ITS ---
APPROVED REPORT EXAM: Comprehensive 2D, Doppler, and color-flow Echocardiogram Rig Builder: NGOC Suh, RVS Ht: 5 ft 6 in Wt: 157lbs BSA: 1.80 BP: 119/71 mmHg Indications: 8 weeks post op CABGx2 with SOA, H/o lung cancer & radiation therapy to lungs, Exsmoker, Hypotension,HTN, HLD 2D Dimensions IVSd 0.92 cm LVEF (Visual) 57.00 % PWd 0.83 cm LA Volume 68.60 mL LVDd 4.59 cm LA Volume Index [id number] mL/m2 (M/F) 16-34 LVDs 3.22 cm Left Atrium 2.32 cm M-Mode Dimensions RVDd 2.61 cm (0.9-2.6) LA Diam 3.37 cm (1.9-4.0) LVDd 4.88 cm (3.5-5.7) LVDs 3.81 cm (3.5-5.7) IVSd 0.88 cm (0.6-1.1) PWd 0.85 cm (0.6-1.1) EF (Teich) 44.20% EPSs 0.47 cm FS 21.90% EDV (Teich) 111.70 mL ESV (Teich) 62.30 mL LV Diastology E Decel Time 157 (160-240 msec) E/A Ratio 0.96 MED A' 8.00 cm/s LAT A' 8.10 cm/s Aortic Valve MATTY Index 1.76 cm2/m2 AoV Peak Tang. 123.0 (50-130 cm/s) AI PHT 414.00 ms AO Peak GR. 6.10 mmHg AO Mean GR. 3.10 (<5 mmHg) AO VTI 20.7 (18-25 cm) MATTY (VTI) 3.25 (2.5-4.5 cm2) Mitral Valve MV A Velocity 607.0 (40-130 cm/s) E/A Ratio 0.96 Pulmonary Valve PV Peak Velocity 661.0 (50-150 cm/s) Tricuspid Valve TR P. Velocity 217.00 cm/s RAP Estimate 10.00 mmHg RVSP 28.80 mmHg Left Ventricle The left ventricle is normal size. The left ventricular systolic function is normal. The left ventricular ejection fraction is within the normal range. There is increased LV wall thickness. There is normal LV segmental wall motion. Transmitral Doppler flow pattern suggests impaired LV relaxation. LVEF is 60%. Right Ventricle The right ventricle is normal size. The right ventricular systolic function is normal. Atria Left atrium is mildly dilated. Right atrium is mildly dilated. There is no Doppler evidence of interatrial shunt. Aortic Valve The aortic valve is mildly thickened. There is no aortic valvular stenosis. Mild aortic regurgitation. Mitral Valve The mitral valve is normal in structure. No evidence of mitral valve stenosis. Mild mitral regurgitation. Tricuspid Valve The tricuspid valve leaflets are thin and pliable. Trace tricuspid regurgitation. RVSP is normal. Pulmonic Valve The pulmonary valve is normal in structure. Trace pulmonic regurgitation. Great Vessels The aortic root is normal in size. The ascending aorta is not well visualized. IVC is normal in size and collapses >50% with inspiration. Pericardium There is no pericardial effusion. Other Information Study Quality: Fair Conclusion Normal biventricular systolic function. Mild biatrial dilation. Mild AI, mild MR. Electronically signed by : Mica Alberts MD 07/18/2023 11:36:47
== END 2023-07-14 23:59 | disposition home or self-care (01) ==
LOC: RT 13:22
PROVIDERS: PCP Internal Medicine; Visit Provider Internal Medicine
DX: R06.02 Shortness of breath (principal)
CPT/HCPCS: 93306

== ENCOUNTER 2023-09-21 10:29 | Day surgery (SDC) | payer MEDICARE, SELFPAY ==
[2023-09-21] VITALS (12 sets, daily range): BP systolic 97–137; BP diastolic 48–81; PULSE 67–82; RESP 15–20; TEMP 36.6–36.8; O2SAT 92–100; BMI 24.7
--- NOTE | 2023-09-21 07:04 | IR_ITS ---
APPROVED REPORT Patient Location: Outpatient PROCEDURES Left heart catheterization Left ventriculogram Selective coronary angiogram Selective engage the left internal mammary artery with angiography Right internal mammary angiography Selective engagement of saphenous vein graft to the right coronary Drug-eluting stent deployment to the proximal and mid LAD in a contiguous manner Drug-eluting stent deployment to the circumflex artery extending into the second obtuse marginal artery INDICATION Coronary artery disease, History of coronary bypass surgery, Recalcitrant angina pectoris, Informed consent was obtained prior to the procedure. COMPLICATIONS NONE Estimated Blood Loss: LESS THAN 10 ML TECHNIQUE One percent lidocaine used to anesthetize the right groin. The right femoral artery was accessed via the Seldinger technique and a 5 Swiss sheath was placed in the right femoral artery. A JL 4, JR4 catheter were used to perform left heart catheterization, left ventriculogram selective coronary angiography as well as selective engagement of the saphenous vein graft to the right coronary artery as well as bilateral selective internal mammary angiography. At the end of the diagnostic angiogram the 5 Swiss sheath was exchanged for a 6 Swiss sheath and therapeutic heparin was administered giving a therapeutic ACT. A JL 4 guide catheter was placed in the left main artery followed by Choice PT extra-support wire placed down the LAD. A 3 mm x 18 mm Dmitri frontier stent was deployed at 24 nery in the proximal LAD reducing the stenosis. An additional 2.5 x 18 mm [place] frontier stent was placed in a noncontiguous manner distal to the first diagonal artery into the mid LAD and deployed at 18 nery. An additional 2.75 x 22 mm Dmitri frontier stent was then placed connecting the 2 stents and deployed at 20 nery. The balloon was advanced slightly and deployed at 20 nery in the proximal portion of the 2.5 mm stent. A 3.5 x 8 mm noncompliant balloon was then deployed at 24 nery in the restenosed area in the proximal LAD. Following this the wire was placed into the circumflex artery second obtuse marginal artery where a 2.5 x 15 mm [place] frontier stent was deployed at 16 nery reducing the severe stenosis to 0% YEVGENIY-3 flow was present before and after the procedure. At the end of procedure the apparatus was removed the groin is reprepped closure change sheath was removed good hemostasis was achieved using Angio-Seal device patient was transferred to the postop putting in stable condition ANGIOGRAPHIC RESULTS The left main artery Normal The left anterior descending artery Stents in the proximal segment which are widely patent proximally with distal concentric 80% stenosis. The mid LAD then has an additional 70 to 80% stenosis. There is scant retrograde filling of a physiologically occluded CRUZ/vein graft to the mid LAD The circumflex artery Has stents in the proximal to mid segment which has distal concentric 90% stenosis just proximal to a small and then larger second obtuse marginal artery The right coronary artery Is patent in the proximal and mid segment and then subtotally occluded distally The JUNIOR ventriculogram reveals Preserved at 60% The left ventricular end-diastolic pressure 10 mmHg PEÑA graft is widely patent to the chest wall CRUZ graft is physiologically occluded Saphenous vein graft to the distal right coronary artery is patent however small in caliber in the proximal segment and then supplies a small amount of distal kaibab right coronary artery runoff IMPRESSION Coronary artery disease as described above Successful stenting of the proximal to mid LAD severe disease reduced to 0% with 3 contiguous drug-eluting stents Successful stenting of the circumflex artery extending into the second obtuse marginal artery severe disease reduced to 0% with 1 drug-eluting stent Physiologically occluded CRUZ/vein graft supplying the LAD. Per the operative note, the CRUZ graft had an end to end anastomosis with a vein graft where the vein graft then made an anastomosis onto the LAD PLAN 1. Dual antiplatelet therapy 2. Medical management with risk factor modification Electronically signed by : Carl Gaffney MD 09/21/2023 15:25:33
[2023-09-21 10:52] LABS: Basophils # 0.1 K/mm3 (0-0.2); Basophils % 0.6 % (0.1-2.0); Eosinophils # 0.2 K/mm3 (0.0-0.4); Eosinophils % 2.6 % (0.1-12.0); Hematocrit 37.9 % (42.0-52.0); Hemoglobin 12.6 g/dL (14.1-18.0); Lymphocytes # 1.9 K/mm3 (0.7-4.5); Lymphocytes % 24.6 % (10-50); Mean Corpuscular HGB Conc 33.2 g/dL (31.8-35.4); Mean Corpuscular Hemoglobin 27.1 pg (27.0-31.2); Mean Corpuscular Volume 81.6 fl (80-94); Mean Platelet Volume 8.4 fl (7.4-10.4); Monocytes # 0.4 K/mm3 (0.1-1.0); Monocytes % 4.9 % (1.7-9.3); Neutrophils # 5.1 K/mm3 (1.8-7.8); Neutrophils % 67.2 % (37.0-80.0); Platelet Count 223 K/mm3 (142-424); Red Blood Count 4.64 M/mm3 (4.60-6.20); Red Cell Distribution Width 18.5 % (11.5-17.5); White Blood Count 7.6 K/mm3 (4.8-10.8)
[2023-09-21 11:16] LABS: Albumin Level 3.9 g/dl (3.5-5.0); Chloride 108 mmol/L (98-107); Sodium 139 mmol/L (136-145)
[2023-09-21 11:18] LABS: Blood Urea Nitrogen 15 mg/dl (9-20); Estimated Glomerular Filt Rate 59 ml/min (>60); GFR (African American) 71 ML/MIN (>60)
[2023-09-21 11:19] LABS: Alanine Aminotransferase 11 U/L (12-78); Alkaline Phosphatase 123 U/L (38-126); Aspartate Amino Transferase 20 U/L (17-59); Bilirubin,Direct 0.2 mg/dl (0.0-0.4); Bilirubin,Indirect 0.6 mg/dL (0.0-0.9); Bilirubin,Total 0.8 mg/dl (0.2-1.3); Bilirubin,Unconjugated 0.6 mg/dL (0.0-1.1); Calcium 9.5 mg/dl (8.4-10.2); Carbon Dioxide 27 mmol/L (22.0-30.0); Cholesterol 122 mg/dl (140-200); Glucose 95 mg/dl (74-100); Total Protein,Serum 6.5 g/dl (6.3-8.2); Triglycerides 115 mg/dl (30-150); VLDL Cholesterol 23 mg/dL (0-40)
[2023-09-21 11:20] LABS: Chol/HDL Ratio 3.4 (1-3.5); HDL Cholesterol 36 mg/dl (40-60)
[2023-09-21] MEDS: NITROGLYCERIN 800MCG/8ML SYR (CATH LAB) 800 MCG IA (11:35)
[2023-09-21] MEDS: diphenhydrAMINE 50MG/ML VIAL 50 MG IV (11:35)
[2023-09-21] MEDS: LIDOCAINE 1% 10ML MDV 20 ML IJ (11:35)
[2023-09-21 11:36] LABS: Direct LDL Cholesterol 61.66 mg/dL (100-129)
[2023-09-21] MEDS: MIDAZOLAM HCL 1MG/1ML 5ML VIAL 1 MG IV (11:36)
[2023-09-21] MEDS: 0.9 % SODIUM CHLORIDE 500 ML 25 ML IV (11:37)
[2023-09-21] MEDS: HEPARIN 1,000 UNITS/500ML NS (CATH LAB) 3000 UNIT IV (11:37)
[2023-09-21] MEDS: FENTANYL 100MCG/2ML VIAL 50 MCG IV (11:37)
[2023-09-21 11:49] LABS: Thyroid Stimulating Hormone 2.27 uIU/mL (0.465-4.68)
[2023-09-21 12:03] LABS: Free T4 (Free Thyroxine) 0.89 ng/dl (0.78-2.19)
--- NOTE | 2023-09-21 12:17 | SUR.PHASEII ---
Spoke to Dr Petty in regards to admission of patient, called case management to notify of admission.
[2023-09-21] MEDS: HEPARIN 1,000 UNITS/ML 10ML VIAL (CATH LAB) 10000 UNIT IV (12:34)
--- NOTE | 2023-09-21 12:36 | P.HP_ITS ---
[facility] Disclaimer: The information contained in this section may have been updated after the patient was seen, as this information can be updated by other users. Medical History Dyspnea on exertion History of smoking 30 or more pack years Age related osteoporosis Lung cancer Pain in right leg Claudication of right lower extremity PAD (peripheral artery disease) Dizziness HHD (hypertensive heart disease) CAD (coronary artery disease) Surgical History History of brachytherapy Circumflex artery- DEC 2021. Family History Other Family history of acute congestive heart failure Family history of acute heart failure Family history of hyperlipidemia Family history of hypertension Social History Smoking Status: Former smoker tobacco type: cigarettes packs per day: 1 second hand exposure: No alcohol intake: current alcohol intake frequency: a few times a week substance use type: denies use current occupational status: retired Travel in the last 8 weeks: None household members: spouse housing: house current occupational exposures/hazards: No caffeine: Yes Meds Home Medications and Allergies Home Medications ?Medication ?Instructions ?Recorded ?Confirmed ?Type nitroglycerin 0.4 mg sublingual 0.4 mg sublingual Q5M PRN chest 03/18/21 09/11/23 Rx tablet pain #20 tabs aspirin 81 mg tablet,delayed 81 mg PO DAILY Blood thinner 01/21/22 09/11/23 History release atorvastatin 80 mg tablet 80 mg PO HS High cholesterol #90 10/24/22 09/11/23 Rx tabs spironolactone 25 mg tablet 25 mg PO .T,T,Sa Fluid #90 tabs 03/02/23 09/11/23 Rx albuterol sulfate 90 mcg/actuation 2 inh inhalation QID PRN shortness 05/02/23 09/11/23 Rx aerosol inhaler of breath or wheezing 90 days #8.5 grams azelastine 137 mcg (0.1 %) nasal 1 spray intranasal .q6 PRN allergy 05/02/23 09/11/23 Rx spray symptoms 90 days #30 mL denosumab 60 mg/mL subcutaneous 60 mg SQ [id number] Osteoporosis #1 07/06/23 09/11/23 Rx syringe (Prolia) mL furosemide 40 mg tablet 40 mg PO DIRECTED #15 tabs 07/11/23 09/11/23 Rx metoprolol succinate 25 mg 25 mg PO DAILY #90 tabs 08/22/23 09/11/23 Rx tablet,extended release 24 hr tiotropium 2.5 mcg-olodaterol 2.5 See Rx Instructions .Route 08/31/23 09/11/23 Rx mcg/actuation mist for inhalation .COMPLEX #4 grams (Stiolto Respimat) clopidogrel 75 mg tablet 75 mg PO DAILY antiplatelet #90 09/12/23 Rx tabs New Prescriptions to Start Prescriptions: Allergies Allergy/AdvReac Type Severity Reaction Status Date / Time No Known Allergies Allergy Verified 09/11/23 13:48 Exam Data for Last 24 hours Vital signs and Labs for Last 24 Hours: Temp Pulse Resp BP Pulse Ox O2 Del Method 97.9 F 74 17 137/81 97 Room Air 09/21/23 11:04 09/21/23 11:04 09/21/23 11:04 09/21/23 11:04 09/21/23 11:04 09/21/23 11:04 Laboratory Results - last 24 hr 09/21/23 10:35: WBC 7.6, RBC 4.64, Hgb 12.6 L, Hct 37.9 L, MCV 81.6, MCH 27.1, MCHC 33.2, RDW 18.5 H, Plt Count 223, MPV 8.4, Neut % (Auto) 67.2, Lymph % (Auto) 24.6, Lares % (Auto) 4.9, Eos % (Auto) 2.6, Baso % (Auto) 0.6, Neut # (Auto) 5.1, Lymph # (Auto) 1.9, Lares # (Auto) 0.4, Eos # (Auto) 0.2, Baso # (Auto) 0.1, Sodium 139, Potassium 5.0, Chloride 108 H, Carbon Dioxide 27, Anion Gap 9.0, BUN 15, Creatinine 1.20, Estimated GFR 59, Est GFR ( Amer) 71, Glucose 95, Calcium 9.5, Magnesium 2.0, Total Bilirubin 0.8, Direct Bilirubin 0.2, Conjugated Bilirubin 0.0, Indirect Bilirubin 0.6, Unconjugated Bilirubin 0.6, AST 20, ALT 11 L, Alkaline Phosphatase 123, Total Protein 6.5, Albumin 3.9, Triglycerides 115, Cholesterol 122 L, LDL Cholesterol Direct 61.66 L, VLDL Cholesterol 23, HDL Cholesterol 36 L, Cholesterol/HDL Ratio 3.4, TSH 2.27, Free T4 0.89 I & O for Last 24 hours: Intake & Output 09/18/23 09/19/23 09/20/23 09/21/23 23:59 23:59 23:59 23:59 Weight 69.4 kg
--- NOTE | 2023-09-21 12:41 | HMH.PHAINT1 ---
Pharmacy Intervention Comments: MEDICATION RECONCILIATION COMPLETED ON PATIENT USING EXTERNAL FILL HISTORY FROM PHARMACY AND LIST FROM CARDIOLOGY OFFICE. -PERRY HEAD, ADOLFOD
--- NOTE | 2023-09-21 12:49 | SUR.PHASEII ---
Dr Gaffney stated pt can be d/c home, notified dr knowles of cancelled admission.
[2023-09-21] MEDS: IOPAMIDOL-370 (76%);100ML BOTTLE 105 ML IV (13:27)
[2023-09-21 13:54] LABS: CATHL Activated Clotting Time 324 SEC (74-125)
== END 2023-09-21 15:35 | disposition home or self-care (01) ==
LOC: CATHLAB 10:31 → 2ND 12:23 → CATHLAB 12:55
PROVIDERS: Physician Assistant; PCP Internal Medicine; Visit Provider Internal Medicine
DX: R53.83 Other fatigue (principal); R06.09 Other forms of dyspnea; I25.118 Atherosclerotic heart disease of native coronary artery with other forms of angina pectoris; Z95.1 Presence of aortocoronary bypass graft; Z95.5 Presence of coronary angioplasty implant and graft; Z79.899 Other long term (current) drug therapy; I70.201 Unspecified atherosclerosis of native arteries of extremities, right leg
CPT/HCPCS: 36415; 80048; 80061; 80076; 83735; 84439; 84443; 85025; 85347; 92928; 93459; 99152; 99153; C1725; C1760; C1769; C1874; C1894; C9600; J1200; J1644; J2250; J3010; Q9967

== ENCOUNTER 2023-09-22 07:25 | Observation (INO) | payer MEDICARE, SELFPAY ==
[2023-09-22] VITALS (10 sets, daily range): BP systolic 102–135; BP diastolic 60–78; PULSE 63–80; RESP 13–21; TEMP 36.7–37.1; O2SAT 95–99; BMI 24.3; BMI 22.6
--- NOTE | 2023-09-22 07:26 | ECG_ITS ---
APPROVED REPORT Exam: Resting ECG HR:81 bpm ECG Measurements Heart Rate 81 AXES WI 171 P 53 QRSd 98 QRS 31 QT 378 T 30 QTc 415 Conclusion SINUS RHYTHM MODERATE ST DEPRESSION [0.05+ mV ST DEPRESSION] ABNORMAL ECG Electronically signed by : DAVID BENDER, 09/23/2023 15:41:13
--- NOTE | 2023-09-22 07:39 | HMH.EDCP ---
Discharge Plan Disposition Patient Disposition: Admitted Chief Complaint: Chest Pain Clinical Impressions Clinical Impression: Unstable angina, Non-ST elevation OK (NSTEMI) Discharge ED Provider: Candelario Perez HPI General Chief Complaint: Chest Pain Stated Complaint: chest pain Time Seen by Provider: 09/22/23 07:29 History of Present Illness HPI narrative: Please note that above description of symptoms, in this electronic medical record under categorization of recalled from ER triage doctor by RN are reflective of an initial nursing assessment, however, is not reflective of my full history and physical exam that was personally taken and clarified. Consequentially, this preceding description of symptoms, which may include the patient's categorized chief complaint in the EMR, do not reflect my personal clinical impression, and the ultimate description of history of present illness and patient stated complaints should be deferred to this section of the note. Unless stated otherwise or congruent with this section of the note, additional signs, symptoms, or incongruence should be interpreted as inaccurate with my clinical impression. Related Data Home Medications ?Medication ?Instructions ?Recorded ?Confirmed aspirin 81 mg tablet,delayed 81 mg PO DAILY 01/21/22 09/21/23 release albuterol sulfate 90 mcg/actuation 2 inh inhalation Q6HP PRN 09/21/23 09/22/23 aerosol inhaler shortness of breath or wheezing atorvastatin 80 mg tablet 80 mg PO HS 09/21/23 09/22/23 azelastine 137 mcg (0.1 %) nasal 1 spray intranasal Q6HP PRN 09/21/23 09/22/23 spray allergy symptoms clopidogrel 75 mg tablet 75 mg PO DAILY 09/21/23 09/22/23 furosemide 40 mg tablet 40 mg PO DAILYP PRN Edema 09/21/23 09/22/23 nitroglycerin 0.4 mg sublingual 0.4 mg sublingual Q5MINP PRN chest 09/21/23 09/21/23 tablet pain spironolactone 25 mg tablet 25 mg PO TUTHSA 09/21/23 09/22/23 tiotropium 2.5 mcg-olodaterol 2.5 2 puff inhalation DAILY 09/22/23 09/22/23 mcg/actuation mist for inhalation (Stiolto Respimat) Previous Rx's ?Medication ?Instructions ?Recorded denosumab 60 mg/mL subcutaneous 60 mg SQ [id number] Osteoporosis #1 07/06/23 syringe (Prolia) mL metoprolol succinate 25 mg 25 mg PO DAILY #90 tabs 08/22/23 tablet,extended release 24 hr Allergies Allergy/AdvReac Type Severity Reaction Status Date / Time No Known Allergies Allergy Verified 09/11/23 13:48 [facility] Disclaimer: The information contained in this section may have been updated after the patient was seen, as this information can be updated by other users. Medical History Dyspnea on exertion History of smoking 30 or more pack years Age related osteoporosis Lung cancer Pain in right leg Claudication of right lower extremity PAD (peripheral artery disease) Dizziness HHD (hypertensive heart disease) CAD (coronary artery disease) Surgical History History of brachytherapy Circumflex artery- DEC 2021. Family History Other Family history of acute congestive heart failure Family history of acute heart failure Family history of hyperlipidemia Family history of hypertension Social History Smoking Status: Former smoker tobacco type: cigarettes packs per day: 1 second hand exposure: No alcohol intake: current alcohol intake frequency: a few times a week substance use type: denies use current occupational status: retired Travel in the last 8 weeks: None household members: spouse housing: house current occupational exposures/hazards: No caffeine: Yes ROS Obtained: Yes All systems reviewed & no additional complaints except as documented Physical Exam General General appearance: alert Neck Neck exam: Present trachea midline Chest Chest inspection: Present normal inspection and symmetric chest wall rise Respiratory Respiratory exam: Present normal lung sounds bilaterally; Absent respiratory distress, wheezes, stridor, accessory muscle use or prolonged expiratory phase Cardiovascular Cardiovascular exam: Present regular rate, normal rhythm and other (Pulses equal and symmetric in upper and lower extremities) Extremities Exam Extremities exam: Absent edema Neurological Exam Neurological exam: Present alert, oriented X3 and CN II-XII intact Skin Skin exam: Present warm and dry; Absent cyanosis, diaphoresis or pallor HEART Score HEART Score HEART Score assessment performed?: Yes History (anamnesis): Highly suspicious ECG: Non-specific disturbance Age: >65 years Risk factors: 3 or more risk factors Troponin: > 3x normal limit HEART Score: 9 Critical Care Critical Care Time Critical Care Time: Yes (cv) Attestation: On 09/22/23, the high probability of a clinically significant, sudden or life threatening deterioration of the following system(s) required my full and direct attention, intervention and personal management. The time I documented below is in addition to time spent performing reported procedures but includes the following listed in this critical care notation. Total Time Total Critical Care Time: 45 Medical Decision Making Medical Records Medical records reviewed: Yes I reviewed the patient's medical records. Naveen Inquiry Pt receiving controlled substance: No Naveen was queried for this patient: No Vital Signs Vital Signs: 09/22/23 07:25 09/22/23 07:30 09/22/23 07:44 Temperature 98.0 F Temperature Source Oral Pulse Rate 78 73 Pulse Rate [Left Radial] 80 Respiratory Rate 13 Blood Pressure 133/73 Blood Pressure [Right Arm] 135/78 Blood Pressure Mean [Right Arm] 97 02 Sat by Pulse Oximetry 97 99 Oxygen Delivery Method Room Air 09/22/23 08:00 09/22/23 08:30 09/22/23 09:00 Temperature Temperature Source Pulse Rate 72 74 68 Pulse Rate [Left Radial] Respiratory Rate 17 15 20 Blood Pressure 116/70 116/69 102/62 L Blood Pressure [Right Arm] Blood Pressure Mean [Right Arm] 02 Sat by Pulse Oximetry 95 95 95 Oxygen Delivery Method Room Air Room Air Lab Data Labs: Lab Results 09/22/23 07:30: WBC 9.2, RBC 5.16, Hgb 12.3 L, Hct 41.8 L, MCV 81.1, MCH 23.9 L, MCHC 29.5 L, RDW 18.5 H, Plt Count 233, MPV 8.0, Neut % (Auto) 70.3, Lymph % (Auto) 22.1, Stone % (Auto) 5.5, Eos % (Auto) 1.8, Baso % (Auto) 0.4, Neut # (Auto) 6.5, Lymph # (Auto) 2.1, Stone # (Auto) 0.5, Eos # (Auto) 0.2, Baso # (Auto) 0.0, PT 10.9, INR 0.97, APTT 26.7, D-Dimer 0.47, Sodium 139, Potassium 4.2, Chloride 108 H, Carbon Dioxide 26, Anion Gap 9.2, BUN 14, Creatinine 1.20, Estimated Creat Clear 54, Estimated GFR 59, Est GFR ( Amer) 71, Glucose 103 H, Calcium 9.1, Total Bilirubin 0.8, AST 41 D, ALT 17 D, Alkaline Phosphatase 122, Troponin I 3.39 H, NT-Pro-B Natriuret Pep 2370 H, Total Protein 6.8, Albumin 3.8, Globulin 3.0, Albumin/Globulin Ratio 1.3 09/22/23 07:50: Lactate 1.0 09/22/23 07:30 09/22/23 07:30 Response Orders (Tests/Meds): ED MEDICATIONS Discontinued Medications Generic Name Dose Route Start Last Admin Trade Name Freq PRN Reason Stop Dose Admin Aspirin 324 mg 09/22/23 07:40 09/22/23 07:45 Aspirin 81mg Chewable Tablet PO 09/22/23 07:41 324 mg ONCE ONE Administration ORDERS Category Date Time Status Cardiology Consult [Consult to Cardiology] [CONS] Cons 09/22/23 09:06 Active Routine XR chest portable Stat Exams 09/22/23 07:40 Taken Complete Blood Count Auto Diff AMLAB Lab 09/23/23 06:00 Ordered Complete Blood Count Auto Diff Stat Lab 09/22/23 07:30 Completed Comprehensive Metabolic Panel AMLAB Lab 09/23/23 06:00 Ordered Comprehensive Metabolic Panel Stat Lab 09/22/23 07:30 Completed D-Dimer Stat Lab 09/22/23 07:30 Completed INR [Prothrombin Time INR] Stat Lab 09/22/23 07:30 Completed Lactic Acid Stat Lab 09/22/23 07:50 Completed Magnesium AMLAB Lab 09/23/23 06:00 Ordered NT Pro Brain Natriuretic Pep. Stat Lab 09/22/23 07:30 Completed PTT [Activated Partial Thrombo Time] Stat Lab 09/22/23 07:30 Completed Troponin I Q3H Lab 09/22/23 10:45 Ordered Troponin I Q3H Lab 09/22/23 13:45 Ordered Troponin I Stat Lab 09/22/23 07:30 Completed MDM Narrative Medical Decision Narrative: 78-year-old male history of hypertension, hyperlipidemia, COPD not on home oxygen and not currently smoking, lung cancer currently in remission, CAD status post two-vessel CABG and 12 stent (most recent received 4 stents 09/21/2023) presenting with chest pain. Patient states that he received stents yesterday via groin approach. Not having any symptoms at the site, but started having chest pain around midnight this morning while sleeping. Woke him up from sleep, patient started having difficulty lying flat, so went to sleep and his arm chair. Pain is mild, dull, radiates from his chest to his back and into his left arm down to his elbow. This is the same pain he has had in the past with previous MIs. No shortness of breath, nausea, vomiting, diaphoresis, neurologic deficits, or any other complaints. History was obtained via conversation with patient. On arrival, patient hemodynamically stable, alert, oriented x4, appropriate, GCS 15, moving all extremities spontaneously, pupils equal and reactive to light. Full physical exam performed and significant for NIHSS 0. Cardiac exam without murmurs, gallops, rubs. Patient neuro intact. Lungs are clear to auscultation anterior and posteriorly. No lower extremity edema, pulses equal and symmetric. Differential includes ACS, OK, stent thrombosis, coronary artery dissection, microvascular coronary disease, reperfusion pain, aortic injury, among others. Patient was given 324 mg aspirin for symptomatic management and correction of underlying abnormalities. Patient placed on continuous cardiac monitoring and continuous pulse ox with initial blood pressure 135/78, heart rate 80, saturation 97% on room air. Independent interpretation of EKG shows sinus rhythm about 81 beats a minute. WA 171, QRS 98, QTc 415. Patient does have ST depressions high lateral leads. Workup independently interpreted and significant for nonactionable CBC or chemistry. Initial troponin 3.4, BNP elevated at 2300 with no baseline. On independent interpretation of imaging, no acute cardiopulmonary airspace disease, no pneumothorax. See radiology read for full review of final results. Heart score 9. Repeat EKG similar, but ischemic change almost completely normalized. Cardiology was consulted and case was discussed at length, patient to be admitted for observation. Cardiology stated that patient had stenting done yesterday, small occlusion of smaller branch of circumflex which is likely contributing to elevated troponin and current symptoms. This is largely to be expected. On reevaluation, patient states that he is feeling much better, pain is still there, but minimal in intensity. Hospital medicine was contacted and case was discussed at length, to be admitted for further evaluation and management. Because patient high risk for clinical decompensation, deemed appropriate for inpatient admission. Results were relayed to patient who voiced understanding and patient was agreeable to inpatient admission and management. Patient was admitted to the hospital for further definitive management. Field Marketing Team Leader disclaimer Much of this encounter note is an electronic osteopathic medicine teacher spoken language to printed text. Electronic osteopathic medicine teacher of the spoken language may permit errors. Although I have reviewed the note, some errors may still exist.
--- NOTE | 2023-09-22 07:40 | XR_ITS ---
FINAL REPORT CLINICAL HISTORY: CP cath yesterday COMPARISON: 06/10/2018 FINDINGS: SINGLE-VIEW CHEST There is cardiomegaly. There has been interval median sternotomy. Left base opacity is favored to be atelectasis. There is small left effusion or pleural thickening. There is no pneumothorax. IMPRESSION: Left base atelectasis with small pleural effusion or pleural thickening. Reviewed, Interpreted and Dictated by Neel Bragg III, MD Transcribed by Heike Villaseñor Authenticated and [facility]
[2023-09-22] MEDS: ASPIRIN 81MG CHEWABLE TABLET 324 MG PO (07:45)
--- NOTE | 2023-09-22 07:45 | PC.NURSE ---
I rounded on the pt and took him a warm blanket. no new complaints, no needs voiced. call leonardo in reach.
[2023-09-22 07:54] LABS: Albumin Level 3.8 g/dl (3.5-5.0); Chloride 108 mmol/L (98-107); Potassium 4.2 mmoL/L (3.5-5.1); Sodium 139 mmol/L (136-145)
[2023-09-22 07:57] LABS: Alanine Aminotransferase 17 U/L (12-78); Albumin/Globulin Ratio 1.3 (1.1-1.8); Alkaline Phosphatase 122 U/L (38-126); Anion Gap 9.2 mEq/L (5-15); Aspartate Amino Transferase 41 U/L (17-59); Bilirubin,Total 0.8 mg/dl (0.2-1.3); Blood Urea Nitrogen 14 mg/dl (9-20); Carbon Dioxide 26 mmol/L (22.0-30.0); Creatinine Clearance Estimated 54 mL/min (50-200); Estimated Glomerular Filt Rate 59 ml/min (>60); GFR (African American) 71 ML/MIN (>60); Total Protein,Serum 6.8 g/dl (6.3-8.2)
[2023-09-22 07:58] LABS: Calcium 9.1 mg/dl (8.4-10.2); Glucose 103 mg/dl (74-100)
[2023-09-22 08:02] LABS: Basophils % 0.4 % (0.1-2.0); Eosinophils # 0.2 K/mm3 (0.0-0.4); Eosinophils % 1.8 % (0.1-12.0); Hematocrit 41.8 % (42.0-52.0); Hemoglobin 12.3 g/dL (14.1-18.0); Lymphocytes # 2.1 K/mm3 (0.7-4.5); Lymphocytes % 22.1 % (10-50); Mean Corpuscular HGB Conc 29.5 g/dL (31.8-35.4); Mean Corpuscular Hemoglobin 23.9 pg (27.0-31.2); Mean Corpuscular Volume 81.1 fl (80-94); Monocytes # 0.5 K/mm3 (0.1-1.0); Monocytes % 5.5 % (1.7-9.3); Neutrophils # 6.5 K/mm3 (1.8-7.8); Neutrophils % 70.3 % (37.0-80.0); Platelet Count 233 K/mm3 (142-424); Red Blood Count 5.16 M/mm3 (4.60-6.20); Red Cell Distribution Width 18.5 % (11.5-17.5); White Blood Count 9.2 K/mm3 (4.8-10.8)
[2023-09-22 08:07] LABS: NT Pro Brain Natriuretic Pep. 2370 pg/mL (0-450)
[2023-09-22 08:09] LABS: Activated Partial Thrombo Time 26.7 seconds (22.8-30.6)
[2023-09-22 08:11] LABS: Troponin I 3.39 ng/ml (0.00-0.034)
[2023-09-22 08:15] LABS: D-Dimer 0.47 ug/mL (0.0-0.5)
--- NOTE | 2023-09-22 08:15 | ECG_ITS ---
APPROVED REPORT Exam: Resting ECG HR:71 bpm ECG Measurements Heart Rate 71 AXES HI 175 P 9 QRSd 101 QRS 29 QT 401 T 16 QTc 424 Conclusion SINUS RHYTHM NORMAL ECG Electronically signed by : DAVID BENDER, 09/23/2023 15:40:56
--- NOTE | 2023-09-22 08:22 | PC.NURSE ---
Dr. Perez at bedside
--- NOTE | 2023-09-22 08:33 | PC.NURSE ---
o/p with at this time.
[2023-09-22 08:48] LABS: INR 0.97 (0.9-1.1); Prothrombin Time 10.9 seconds (10.1-12.5)
--- NOTE | 2023-09-22 09:37 | PC.NURSE ---
report called to nancy delarosa on second floor
--- NOTE | 2023-09-22 10:09 | EXP.CARD.CON ---
History of Present Illness History of Present Illness Consult date: 09/22/23 Requesting physician: Brock Petty Consult reason: chest pain Chief complaint: Angina Additional Medical History:: 1. CAD is present and likely stable. -3 SOFY to prox/mid LAD, 1 SOFY to Cx. Occluded CRUZ/SVG to LAD. SVG to RCA small but patent. -Echo, 07/14/2023, normal biventricular systolic function, mild biatrial dilation, mild AI/mild MR. -CABG on 05/12/2023, SVG to RCA, CRUZ to LAD. -SOFY to circ 08/2022 -Brachytherapy to CX DEC 2021-?Brandan Chung @ [facility] -SOFY in 03/2021 to circ. -SOFY MAY 2020, SOFY LEFT MAIN 2019. -DAPT Plavix/asa. 2. Hyperlipidemia -LDL goal is < 55. -on atorvastatin therapy with last LDL 81, 03/2023 3. PAD is present and likely stable. -Abdomen CTA AUGUST 2021- medical mgt PAD, -05/2021, angioplasty to the SFA and profunda femoris 4. Ex-smoker. 5. Recently diagnosed with recurring lung cancer, 2023, 3 radiation treatments @[facility] at . -Patient reports recent PET scan stable with no evidence of worsening cancer. History of present illness: 78-year-old male history of hypertension, hyperlipidemia, COPD not on home oxygen and not currently smoking, lung cancer currently in remission, CAD status post two-vessel CABG and 12 stent (most recent received 4 stents 09/21/2023) presenting with chest pain. Patient states that he received stents yesterday via groin approach. Not having any symptoms at the site, but started having chest pain around midnight this morning while sleeping. Woke him up from sleep, patient started having difficulty lying flat, so went to sleep and his arm chair. Pain is mild, dull, radiates from his chest to his back and into his left arm down to his elbow. This is the same pain he has had in the past with previous MIs. No shortness of breath, nausea, vomiting, diaphoresis, neurologic deficits, or any other complaints. History was obtained via conversation with patient. On arrival, patient hemodynamically stable, alert, oriented x4, appropriate, GCS 15, moving all extremities spontaneously, pupils equal and reactive to light. Full physical exam performed and significant for NIHSS 0. Cardiac exam without murmurs, gallops, rubs. Patient neuro intact. Lungs are clear to auscultation anterior and posteriorly. No lower extremity edema, pulses equal and symmetric. Differential includes ACS, OR, stent thrombosis, coronary artery dissection, microvascular coronary disease, reperfusion pain, aortic injury, among others. Patient was given 324 mg aspirin for symptomatic management and correction of underlying abnormalities. Patient placed on continuous cardiac monitoring and continuous pulse ox with initial blood pressure 135/78, heart rate 80, saturation 97% on room air. Independent interpretation of EKG shows sinus rhythm about 81 beats a minute. NV 171, QRS 98, QTc 415. Patient does have ST depressions high lateral leads. Workup independently interpreted and significant for nonactionable CBC or chemistry. Initial troponin 3.4, BNP elevated at 2300 with no baseline. On independent interpretation of imaging, no acute cardiopulmonary airspace disease, no pneumothorax. See radiology read for full review of final results. Heart score 9. Repeat EKG similar, but ischemic change almost completely normalized. Cardiology was consulted and case was discussed at length, patient to be admitted for observation. Cardiology stated that patient had stenting done yesterday, small occlusion of smaller branch of circumflex which is likely contributing to elevated troponin and current symptoms. This is largely to be expected. On reevaluation, patient states that he is feeling much better, pain is still there, but minimal in intensity. Hospital medicine was contacted and case was discussed at length, to be admitted for further evaluation and management. Because patient high risk for clinical decompensation, deemed appropriate for inpatient admission. Results were relayed to patient who voiced understanding and patient was agreeable to inpatient admission and management. Patient was admitted to the hospital for further definitive management. [facility] Disclaimer: The information contained in this section may have been updated after the patient was seen, as this information can be updated by other users. Medical History Dyspnea on exertion History of smoking 30 or more pack years Age related osteoporosis Lung cancer Pain in right leg Claudication of right lower extremity PAD (peripheral artery disease) Dizziness HHD (hypertensive heart disease) CAD (coronary artery disease) Surgical History History of brachytherapy Circumflex artery- DEC 2021. Family History Other Family history of acute congestive heart failure Family history of acute heart failure Family history of hyperlipidemia Family history of hypertension Social History Smoking Status: Former smoker tobacco type: cigarettes packs per day: 1 second hand exposure: No alcohol intake: current alcohol intake frequency: a few times a week substance use type: denies use current occupational status: retired Travel in the last 8 weeks: None household members: spouse housing: house current occupational exposures/hazards: No caffeine: Yes Review of Systems Review of Systems Review of systems:: pertinent systems reviewed and negative unless documented below *Cardiovascular Cardiovascular: Reports chest pain and Reports dyspnea *Respiratory Respiratory: Reports cough and Reports dyspnea Exam Data for Last 24 hours Vital signs and Labs for Last 24 Hours: Temp Pulse Resp BP Pulse Ox O2 Del Method 98.0 F 68 20 102/62 L 95 Room Air 09/22/23 07:25 09/22/23 09:00 09/22/23 09:00 09/22/23 09:00 09/22/23 09:00 09/22/23 08:30 Laboratory Results - last 24 hr 09/22/23 07:30: WBC 9.2, RBC 5.16, Hgb 12.3 L, Hct 41.8 L, MCV 81.1, MCH 23.9 L, MCHC 29.5 L, RDW 18.5 H, Plt Count 233, MPV 8.0, Neut % (Auto) 70.3, Lymph % (Auto) 22.1, [place] % (Auto) 5.5, Eos % (Auto) 1.8, Baso % (Auto) 0.4, Neut # (Auto) 6.5, Lymph # (Auto) 2.1, [place] # (Auto) 0.5, Eos # (Auto) 0.2, Baso # (Auto) 0.0, PT 10.9, INR 0.97, APTT 26.7, D-Dimer 0.47, Sodium 139, Potassium 4.2, Chloride 108 H, Carbon Dioxide 26, Anion Gap 9.2, BUN 14, Creatinine 1.20, Estimated Creat Clear 54, Estimated GFR 59, Est GFR ( Amer) 71, Glucose 103 H, Calcium 9.1, Total Bilirubin 0.8, AST 41 D, ALT 17 D, Alkaline Phosphatase 122, Troponin I 3.39 H, NT-Pro-B Natriuret Pep 2370 H, Total Protein 6.8, Albumin 3.8, Globulin 3.0, Albumin/Globulin Ratio 1.3 09/22/23 07:50: Lactate 1.0 I & O for Last 24 hours: Intake & Output 09/19/23 09/20/23 09/21/23 09/22/23 11:59 11:59 11:59 11:59 Weight 160 lb Constitutional Constitutional: mild distress and moderate distress *Routine Respiratory Exam Respiratory: Present decreased breath sounds *Routine Cardiovascular Exam Cardiovascular: Present RRR Meds Home Medications and Allergies Home Medications ?Medication ?Instructions ?Recorded ?Confirmed ?Type aspirin 81 mg tablet,delayed 81 mg PO DAILY 01/21/22 09/21/23 History release denosumab 60 mg/mL subcutaneous 60 mg SQ [id number] Osteoporosis #1 07/06/23 09/21/23 Rx syringe (Prolia) mL metoprolol succinate 25 mg 25 mg PO DAILY #90 tabs 08/22/23 09/22/23 Rx tablet,extended release 24 hr albuterol sulfate 90 mcg/actuation 2 inh inhalation Q6HP PRN 09/21/23 09/22/23 History aerosol inhaler shortness of breath or wheezing atorvastatin 80 mg tablet 80 mg PO HS 09/21/23 09/22/23 History azelastine 137 mcg (0.1 %) nasal 1 spray intranasal Q6HP PRN 09/21/23 09/22/23 History spray allergy symptoms clopidogrel 75 mg tablet 75 mg PO DAILY 09/21/23 09/22/23 History furosemide 40 mg tablet 40 mg PO DAILYP PRN Edema 09/21/23 09/22/23 History nitroglycerin 0.4 mg sublingual 0.4 mg sublingual Q5MINP PRN chest 09/21/23 09/21/23 History tablet pain spironolactone 25 mg tablet 25 mg PO TUTHSA 09/21/23 09/22/23 History tiotropium 2.5 mcg-olodaterol 2.5 2 puff inhalation DAILY 09/22/23 09/22/23 History mcg/actuation mist for inhalation (Stiolto Respimat) New Prescriptions to Start Prescriptions: Allergies Allergy/AdvReac Type Severity Reaction Status Date / Time No Known Allergies Allergy Verified 09/11/23 13:48 Assessment and Plan *Assessment and plan (1) Non-ST elevation OR (NSTEMI): Status: Acute Category: Medical Code(s): I21.4 - Non-ST elevation (NSTEMI) myocardial infarction (2) Unstable angina: Status: Acute Category: Medical Code(s): I20.0 - Unstable angina (3) Dyspnea on exertion: Status: Acute Category: Medical Code(s): R06.09 - Other forms of dyspnea (4) History of smoking 30 or more pack years: Status: Acute Category: Social Hx Code(s): Z87.891 - Personal history of nicotine dependence (5) COPD (chronic obstructive pulmonary disease): Status: Acute Qualifiers: COPD type: emphysema Emphysema type: centrilobular Qualified Code(s): J43.2 - Centrilobular emphysema Category: Medical Code(s): J44.9 - Chronic obstructive pulmonary disease, unspecified (6) CAD (coronary artery disease): Status: Chronic Qualifiers: Associated angina: with other forms of angina Coronary Disease-Associated Artery/Lesion type: [place] artery [place] vs. transplanted heart: [place] heart Qualified Code(s): I25.118 - Atherosclerotic heart disease of [place] coronary artery with other forms of angina pectoris Category: Medical Code(s): I25.10 - Atherosclerotic heart disease of [place] coronary artery without angina pectoris (7) History of lung cancer: Status: Chronic Category: Medical Code(s): Z85.118 - Personal history of other malignant neoplasm of bronchus and lung (8) HLD (hyperlipidemia): Status: Chronic Qualifiers: Hyperlipidemia type: mixed hyperlipidemia Qualified Code(s): E78.2 - Mixed hyperlipidemia Category: Medical Code(s): E78.5 - Hyperlipidemia, unspecified Plan 1. NSTEMI post coronary stenting (LAD and Circ) related to branch vessel occlusion (diagonal or OM). -medical therapy with ranexa along with pain meds PRN. Avoiding nitrates due to headache. -continue DAPT with ASA and plavix -check limited echo to re-assess LVEF (echo 07/2023 showed EF 60% without wall motion abnormalities) -continue metoprolol -will try to start entresto 24/26 mg BID if BP tolerates 2. COPD with history of lung cancer -followed by [facility]. Stable per patient with next appt in Nov. 3. HLD -continue statin 4. Elevated BNP likely related to cardiac procedure yesterday -CXR shows left base atelectasis with small pleural effusion or pleural thickening. No overt CHF. -continue home spironolactone and monitor renal status Early review of echo looks to show some reduction of LVEF to around 40%. Will continue metoprolol and try to add entresto if reduced EF confirmed. Add ranexa for angina monitor overnight and if stable then home in AM with follow up next week.
--- NOTE | 2023-09-22 10:21 | CA_ITS ---
APPROVED REPORT EXAM: Limited 2D Echocardiogram Certified Medical Coding Specialist: Margarita Blanc, RCS, RVS Ht: 5 ft 8 in Wt: 160lbs BSA: 1.86 BP: 102/62 mmHg Indications: Chest pressure, EF check post coronary stenting, CABG X2-05/2023, CAD, Cardiomegaly, COPD, Smoker. HTN, HLD Echo Enhancing Agent Comments: Patient scanned bedside, poor acoustics throughout exam 2D Dimensions LVDd 4.81 cm M: 4.2 - 5.9 LVEF (Visual) 32.00 % LVDs 4.08 cm M: 2.5 - 4.0 M-Mode Dimensions RVDd 2.05 cm (0.9-2.6) LVDd 5.34 cm (3.5-5.7) LVDs 4.54 cm (3.5-5.7) IVSd 0.72 cm (0.6-1.1) PWd 1.13 cm (0.6-1.1) EF (Teich) 24.80% EPSs 1.57 cm FS 11.50% EDV (Teich) 125.50 mL ESV (Teich) 94.40 mL LV Diastology E Decel Time 170 (160-240 msec) E/A Ratio 1.11 MED A' 9.20 cm/s LAT A' 8.10 cm/s Mitral Valve MV A Velocity 79.0 (40-130 cm/s) E/A Ratio 1.11 Other Information Study Quality: Technically Difficult Conclusion This is a limited TTE to evaluate for LVEF and wall motion. Limited windows were obtained. Technically difficult study. The left ventricle is normal in size. There is increase in LV wall thickness. There LV bases appear hypokinetic relative to the apex. There is akinesis of the basal inferoseptal LV wall, with a possible aneurysmal appearance. LVEF is 40-45%. Compared to prior study from 07/14/2023, the LVEF is now reduced. The aneurysmal appearance of the basal inferoseptal LV wall is new. Further evaluation of the LV septal akinesis and possible septal aneurysm is recommended with cardiac MRI (cardiomyopathy protocol) to evaluate for LV wall motion and presence of septal aneurysm (and underlying masses within the aneurysm). Differential diagnosis include coronary disease with prior infarcted region vs. sarcoidosis. Clinical correlation is suggested. Electronically signed by : Mica Alberts MD 09/24/2023 12:56:06
[2023-09-22 11:39] LABS: Troponin I 3.85 ng/ml (0.00-0.034)
[2023-09-22] MEDS: CLOPIDOGREL 75MG TAB 75 MG PO (12:23)
[2023-09-22] MEDS: RANOLAZINE 500MG ER TABLET 500 MG PO ×2 (12:23→20:01)
--- NOTE | 2023-09-22 13:08 | P.HP_ITS ---
History of Present Illness *Admission Date: 09/22/23 *Reason for visit:: chest pain *History of present illness: Mr. Hubbard is a 78-year-old male with history of hypertension, hyperlipidemia, COPD, history of lung cancer in remission, CAD status post two-vessel CABG and 12 stents. Had 4 stents placed yesterday in the Provider Relations Consultant. Presented with onset of chest pain last night with radiation to his upper back and left arm. Femoral approach was used. Had no symptoms at time of procedure. Was doing well until around midnight last night when he woke up with chest pressure and pain with radiation to his arm. Went to sleep in his arm chair. Took a nitroglycerin with improvement in his symptoms. Denies having a known OH in the past but has had similar pain before. Denies shortness of breath, nausea, vomiting, diaphoresis. Pain was better after nitro and then recurred again this morning about 7 leading to him coming to the ER for evaluation. On workup in the ER, troponin elevated. ST depressions on EKG in lateral leads but no ST elevations. Cardiology was consulted and recommended admission for further management and optimization of care. Patient was given 324 mg aspirin for symptomatic management and correction of underlying abnormalities in the ER. Labs remarkable for troponin of 3.4, BNP elevated at 2300. Patient's symptoms improved by the time of arrival to the floor. Stable on room air. Family at bedside, updated of plan. [facility] Disclaimer: The information contained in this section may have been updated after the patient was seen, as this information can be updated by other users. Medical History Dyspnea on exertion History of smoking 30 or more pack years Age related osteoporosis Lung cancer Pain in right leg Claudication of right lower extremity PAD (peripheral artery disease) Dizziness HHD (hypertensive heart disease) CAD (coronary artery disease) Surgical History History of brachytherapy Family History Family history of acute congestive heart failure Family history of acute heart failure Family history of hypertension Family history of hyperlipidemia Social History Smoking Status: Former smoker tobacco type: cigarettes packs per day: 1 second hand exposure: No alcohol intake: current alcohol intake frequency: a few times a week substance use type: denies use current occupational status: retired Travel in the last 8 weeks: None household members: spouse housing: house current occupational exposures/hazards: No caffeine: Yes Review of Systems Review of Systems Review of systems (narrative): 14 point review of systems performed, pertinent positives and negatives as per HPI Meds Home Medications and Allergies Home Medications ?Medication ?Instructions ?Recorded ?Confirmed ?Type aspirin 81 mg tablet,delayed 81 mg PO DAILY 01/21/22 09/22/23 History release denosumab 60 mg/mL subcutaneous 60 mg SQ [id number] Osteoporosis #1 07/06/23 09/22/23 Rx syringe (Prolia) mL metoprolol succinate 25 mg 25 mg PO DAILY #90 tabs 08/22/23 09/22/23 Rx tablet,extended release 24 hr albuterol sulfate 90 mcg/actuation 2 inh inhalation Q6HP PRN 09/21/23 09/22/23 History aerosol inhaler shortness of breath or wheezing atorvastatin 80 mg tablet 80 mg PO HS 09/21/23 09/22/23 History azelastine 137 mcg (0.1 %) nasal 1 spray intranasal Q6HP PRN 09/21/23 09/22/23 History spray allergy symptoms clopidogrel 75 mg tablet 75 mg PO DAILY 09/21/23 09/22/23 History furosemide 40 mg tablet 40 mg PO DAILYP PRN Edema 09/21/23 09/22/23 History nitroglycerin 0.4 mg sublingual 0.4 mg sublingual Q5MINP PRN chest 09/21/23 09/22/23 History tablet pain spironolactone 25 mg tablet 25 mg PO TUTHSA 09/21/23 09/22/23 History tiotropium 2.5 mcg-olodaterol 2.5 2 puff inhalation DAILY 09/22/23 09/22/23 History mcg/actuation mist for inhalation (Stiolto Respimat) New Prescriptions to Start Prescriptions: Allergies Allergy/AdvReac Type Severity Reaction Status Date / Time No Known Allergies Allergy Verified 09/11/23 13:48 Exam Data for Last 24 hours Vital signs and Labs for Last 24 Hours: Temp Pulse Resp BP Pulse Ox O2 Del Method 98.0 F 74 20 122/73 98 Room Air 09/22/23 12:00 09/22/23 12:00 09/22/23 12:00 09/22/23 12:00 09/22/23 12:00 09/22/23 12:56 Laboratory Results - last 24 hr 09/22/23 07:30: WBC 9.2, RBC 5.16, Hgb 12.3 L, Hct 41.8 L, MCV 81.1, MCH 23.9 L, MCHC 29.5 L, RDW 18.5 H, Plt Count 233, MPV 8.0, Neut % (Auto) 70.3, Lymph % (Auto) 22.1, [place] % (Auto) 5.5, Eos % (Auto) 1.8, Baso % (Auto) 0.4, Neut # (Auto) 6.5, Lymph # (Auto) 2.1, [place] # (Auto) 0.5, Eos # (Auto) 0.2, Baso # (Auto) 0.0, PT 10.9, INR 0.97, APTT 26.7, D-Dimer 0.47, Sodium 139, Potassium 4.2, Chloride 108 H, Carbon Dioxide 26, Anion Gap 9.2, BUN 14, Creatinine 1.20, Estimated Creat Clear 54, Estimated GFR 59, Est GFR ( Amer) 71, Glucose 103 H, Calcium 9.1, Total Bilirubin 0.8, AST 41 D, ALT 17 D, Alkaline Phosphatase 122, Troponin I 3.39 H, NT-Pro-B Natriuret Pep 2370 H, Total Protein 6.8, Albumin 3.8, Globulin 3.0, Albumin/Globulin Ratio 1.3 09/22/23 07:50: Lactate 1.0 09/22/23 11:06: Troponin I 3.85 H I & O for Last 24 hours: Intake & Output 09/19/23 09/20/23 09/21/23 09/22/23 23:59 23:59 23:59 23:59 Weight 67.387 kg Constitutional Constitutional: no acute distress, average body habitus and cooperative *Routine HEENT Exam Head: Present normocephalic Eye: Present EOMI and PERRL ENT: Present mucous membranes moist *Routine Neck Exam Neck: Present supple; Absent lymphadenopathy *Routine Respiratory Exam Respiratory: Present CTA bilaterally; Absent rhonchi, wheezes or crackles *Routine Cardiovascular Exam Cardiovascular: Present RRR *Routine Abdominal Exam Abdominal: Present soft and normoactive bowel sounds; Absent tenderness *Routine Rectal Exam Rectal:: deferred *Routine Genitalia Exam Genitalia:: deferred *Routine Extremities Exam Extremities: Absent cyanosis, clubbing or edema *Routine Skin Exam Skin: Present intact and warm; Absent cyanosis or rash *Routine Neurological Exam Neurological: Present alert, oriented X3 and moving all extremities; Absent altered mental status Assessment and Plan *Assessment and plan (1) Unstable angina: Status: Acute Category: Medical Code(s): I20.0 - Unstable angina (2) Non-ST elevation [place] (NSTEMI): Status: Acute Category: Medical Code(s): I21.4 - Non-ST elevation (NSTEMI) myocardial infarction (3) History of smoking 30 or more pack years: Status: Acute Category: Social Hx Code(s): Z87.891 - Personal history of nicotine dependence (4) COPD (chronic obstructive pulmonary disease): Status: Acute Qualifiers: COPD type: emphysema Emphysema type: centrilobular Qualified Code(s): J43.2 - Centrilobular emphysema Category: Medical Code(s): J44.9 - Chronic obstructive pulmonary disease, unspecified (5) HLD (hyperlipidemia): Status: Chronic Qualifiers: Hyperlipidemia type: mixed hyperlipidemia Qualified Code(s): E78.2 - Mixed hyperlipidemia Category: Medical Code(s): E78.5 - Hyperlipidemia, unspecified (6) History of lung cancer: Status: Chronic Category: Medical Code(s): Z85.118 - Personal history of other malignant neoplasm of bronchus and lung (7) PAD (peripheral artery disease): Status: Chronic Category: Medical Code(s): I73.9 - Peripheral vascular disease, unspecified (8) HHD (hypertensive heart disease): Status: Chronic Qualifiers: Heart failure presence: without heart failure Qualified Code(s): I11.9 - Hypertensive heart disease without heart failure Category: Medical Code(s): I11.9 - Hypertensive heart disease without heart failure (9) CAD (coronary artery disease): Status: Chronic Qualifiers: Associated angina: with other forms of angina Coronary Disease- Associated Artery/Lesion type: [place] artery [place] vs. transplanted heart: [place] heart Qualified Code(s): I25.118 - Atherosclerotic heart disease of [place] coronary artery with other forms of angina pectoris Category: Medical Code(s): I25.10 - Atherosclerotic heart disease of [place] coronary artery without angina pectoris Plan 78-year-old male with complex past medical history including COPD, CAD, status post CABG. Had left heart cath performed yesterday with placement of 4 stents. Developed chest pain overnight. Found to have ST depressions and elevated troponins today in the ER. Discussed case with ER physician, request admission for medication adjustments and cardiology evaluation. I agreed to admit. Cardiology evaluating, recommends medical management. No plan for intervening today. Pain doing better with symptomatic treatment. Problems addressed as follows: Unstable angina NSTEMI post coronary stenting (LAD and Circ) related to branch vessel occlusion (diagonal or OM). -Discussed case with cardiology, recommend continued medical management at this time. Will add Ranexa 500 mg twice daily - Continue metoprolol 25 mg daily, Lasix 40 mg daily, Plavix 75 mg daily, aspirin 81 mg daily. -check limited echo to re-assess LVEF (echo 07/2023 showed EF 60% without wall motion abnormalities); preliminary read of limited echo shows reduced ejection fraction of approximately 40% -will try to start entresto 24/26 mg BID if BP tolerates -Troponin elevated at 3.39, BNP elevated at 2370. Kidney function at baseline with BUN 14, creatinine 1.2. Repeat CBC, CMP, magnesium ordered for the morning. -Continue home spironolactone 25 mg daily COPD Hx of lung cancer -followed by [facility]. Stable per patient with next appt in Nov. On room air. Goal sats greater than 90%. - Albuterol 2 puffs as needed every 6 hours - Continue Spiriva 2 puffs daily HLD: Continue Lipitor 80 mg nightly Full code Regular diet
[2023-09-22 14:42] LABS: Troponin I 3.34 ng/ml (0.00-0.034)
[2023-09-22] MEDS: ATORVASTATIN 40MG TABLET 80 MG PO (20:01)
[2023-09-23] VITALS: BP 94/60; PULSE 80; PULSE 87; RESP 18; TEMP 36.7; O2SAT 97
[2023-09-23 04:00] VITALS: BP 115/68; PULSE 80; PULSE 83; RESP 18; TEMP 36.8; O2SAT 96; BMI 22.6
--- NOTE | 2023-09-23 05:15 | PC.NURSE ---
Patient is currently asleep and has been the majority of the shift. He is A&OX4 and has tolerated room air. Lung sounds clear throughout and bowel sounds active in all quadrants. He has denied any chest pain or shortness of breath. No complaints at this time, call light within reach.
--- NOTE | 2023-09-23 07:26 | P.DS_ITS ---
General Admission date:: 09/22/23 Discharge date: 09/23/23 HPI HPI HPI: Mr. Hubbard is a 78-year-old male with history of hypertension, hyperlipidemia, COPD, history of lung cancer in remission, CAD status post two-vessel CABG and 12 stents. Had 4 stents placed yesterday in the [facility]. Presented with onset of chest pain last night with radiation to his upper back and left arm. Femoral approach was used. Had no symptoms at time of procedure. Was doing well until around midnight last night when he woke up with chest pressure and pain with radiation to his arm. Went to sleep in his arm chair. Took a nitroglycerin with improvement in his symptoms. Denies having a known GA in the past but has had similar pain before. Denies shortness of breath, nausea, vomiting, diaphoresis. Pain was better after nitro and then recurred again this morning about 7 leading to him coming to the ER for evaluation. On workup in the ER, troponin elevated. ST depressions on EKG in lateral leads but no ST elevations. Cardiology was consulted and recommended admission for further management and optimization of care. Patient was given 324 mg aspirin for symptomatic management and correction of underlying abnormalities in the ER. Labs remarkable for troponin of 3.4, BNP elevated at 2300. Patient's symptoms improved by the time of arrival to the floor. Stable on room air. Family at bedside, updated of plan. Hospital Course Hospital Course Hospital Course: 78-year-old male with complex past medical history including COPD, CAD, status post CABG. Had left heart cath performed yesterday with placement of 4 stents. Developed chest pain overnight. Found to have ST depressions and elevated troponins today in the ER. Discussed case with ER physician, request admission for medication adjustments and cardiology evaluation. I agreed to admit. Cardiology was consulted and assisted with care. Adjustments made to medications. Patient overall did well and was chest pain-free on morning of discharge. Stable to discharge home with further management as an outpatient. Problems addressed as follows: Unstable angina NSTEMI post coronary stenting (LAD and Circ) related to branch vessel occlusion (diagonal or OM). -Discussed case with cardiology, recommend continued medical management at this time. Will add Ranexa 500 mg twice daily. Continue metoprolol 25 mg daily, Lasix 40 mg daily, Plavix 75 mg daily, aspirin 81 mg daily. Llimited echo to re- assess LVEF (echo 07/2023 showed EF 60% without wall motion abnormalities); preliminary read of limited echo shows reduced ejection fraction of approximately 40%. Held on initiating Entresto at this time due to blood pressures. Chest pain-free on Ranexa. Of note, troponin was elevated but peaked at 3.39, BNP elevated at 2300. Kidney function at baseline with BUN of 19, creatinine 1.3 on day of discharge. Continue spironolactone 25 mg daily. Close follow-up with cardiology, further management in the outpatient setting. COPD Hx of lung cancer -followed by [facility]. Stable per patient with next appt in Nov. On room air. Goal sats greater than 90%. Albuterol 2 puffs as needed every 6 hours. Continue Spiriva 2 puffs daily HLD: Continue Lipitor 80 mg nightly Exam Data for Last 24 hours Vital signs and Labs for Last 24 Hours: Temp Pulse Resp BP Pulse Ox O2 Del Method 98.2 F 83 18 115/68 96 Room Air 09/23/23 04:00 09/23/23 04:00 09/23/23 04:00 09/23/23 04:00 09/23/23 04:00 09/23/23 06:46 Laboratory Results - last 24 hr 09/22/23 07:30: WBC 9.2, RBC 5.16, Hgb 12.3 L, Hct 41.8 L, MCV 81.1, MCH 23.9 L, MCHC 29.5 L, RDW 18.5 H, Plt Count 233, MPV 8.0, Neut % (Auto) 70.3, Lymph % (Auto) 22.1, [place] % (Auto) 5.5, Eos % (Auto) 1.8, Baso % (Auto) 0.4, Neut # (Auto) 6.5, Lymph # (Auto) 2.1, [place] # (Auto) 0.5, Eos # (Auto) 0.2, Baso # (Auto) 0.0, PT 10.9, INR 0.97, APTT 26.7, D-Dimer 0.47, Sodium 139, Potassium 4.2, Chloride 108 H, Carbon Dioxide 26, Anion Gap 9.2, BUN 14, Creatinine 1.20, Estimated Creat Clear 54, Estimated GFR 59, Est GFR ( Amer) 71, Glucose 103 H, Calcium 9.1, Total Bilirubin 0.8, AST 41 D, ALT 17 D, Alkaline Phosphatase 122, Troponin I 3.39 H, NT-Pro-B Natriuret Pep 2370 H, Total Protein 6.8, Albumin 3.8, Globulin 3.0, Albumin/Globulin Ratio 1.3 09/22/23 07:50: Lactate 1.0 09/22/23 11:06: Troponin I 3.85 H 09/22/23 14:00: Troponin I 3.34 H I & O for Last 24 hours: Intake & Output 09/20/23 09/21/23 09/22/23 09/23/23 23:59 23:59 23:59 23:59 Intake Total 870 / 870 Output Total 0 / 0 Balance 870 / 870 0 / 0 Weight 67.387 kg 67.721 kg Constitutional Constitutional: no acute distress, average body habitus and cooperative *Routine HEENT Exam Head: Present normocephalic Eye: Present EOMI and PERRL ENT: Present mucous membranes moist *Routine Neck Exam Neck: Present supple; Absent lymphadenopathy Routine Chest/Breast/Axilla Exam Comments: Well-healed sternotomy scar *Routine Respiratory Exam Respiratory: Present CTA bilaterally; Absent rhonchi, wheezes or crackles *Routine Cardiovascular Exam Cardiovascular: Present RRR *Routine Abdominal Exam Abdominal: Present soft and normoactive bowel sounds; Absent tenderness *Routine Rectal Exam Patient deferred: visual exam *Routine Exam Patient deferred: penile exam *Routine Extremities Exam Extremities: Absent cyanosis, clubbing or edema *Routine Skin Exam Skin: Present intact and warm; Absent rash *Routine Neurological Exam Neurological: Present alert, oriented X3 and moving all extremities; Absent altered mental status Results Data Completed and Pending Labs on day of discharge: Labs from last 24 hours 09/22/23 09/22/23 09/22/23 14:00 11:06 07:50 WBC RBC Hgb Hct MCV MCH MCHC RDW Plt Count MPV Neut % (Auto) Lymph % (Auto) [place] % (Auto) Eos % (Auto) Baso % (Auto) Neut # (Auto) Lymph # (Auto) [place] # (Auto) Eos # (Auto) Baso # (Auto) PT INR APTT D-Dimer Sodium Potassium Chloride Carbon Dioxide Anion Gap BUN Creatinine Estimated Creat Clear Estimated GFR Est GFR ( Amer) Glucose Lactate 1.0 Calcium Total Bilirubin AST ALT Alkaline Phosphatase Troponin I 3.34 H 3.85 H NT-Pro-B Natriuret Pep Total Protein Albumin Globulin Albumin/Globulin Ratio 09/22/23 07:30 WBC 9.2 RBC 5.16 Hgb 12.3 L Hct 41.8 L MCV 81.1 MCH 23.9 L MCHC 29.5 L RDW 18.5 H Plt Count 233 MPV 8.0 Neut % (Auto) 70.3 Lymph % (Auto) 22.1 [place] % (Auto) 5.5 Eos % (Auto) 1.8 Baso % (Auto) 0.4 Neut # (Auto) 6.5 Lymph # (Auto) 2.1 [place] # (Auto) 0.5 Eos # (Auto) 0.2 Baso # (Auto) 0.0 PT 10.9 INR 0.97 APTT 26.7 D-Dimer 0.47 Sodium 139 Potassium 4.2 Chloride 108 H Carbon Dioxide 26 Anion Gap 9.2 BUN 14 Creatinine 1.20 Estimated Creat Clear 54 Estimated GFR 59 Est GFR ( Amer) 71 Glucose 103 H Lactate Calcium 9.1 Total Bilirubin 0.8 AST 41 D ALT 17 D Alkaline Phosphatase 122 Troponin I 3.39 H NT-Pro-B Natriuret Pep 2370 H Total Protein 6.8 Albumin 3.8 Globulin 3.0 Albumin/Globulin Ratio 1.3 DS: Diagnosis Discharge Diagnosis (1) Unstable angina: Status: Acute Code(s): I20.0 - Unstable angina (2) Non-ST elevation GA (NSTEMI): Status: Acute Code(s): I21.4 - Non-ST elevation (NSTEMI) myocardial infarction (3) History of smoking 30 or more pack years: Status: Acute Code(s): Z87.891 - Personal history of nicotine dependence (4) COPD (chronic obstructive pulmonary disease): Status: Acute Code(s): J44.9 - Chronic obstructive pulmonary disease, unspecified Qualifiers: COPD type: emphysema Emphysema type: centrilobular Qualified Code(s): J43.2 - Centrilobular emphysema (5) HLD (hyperlipidemia): Status: Chronic Code(s): E78.5 - Hyperlipidemia, unspecified Qualifiers: Hyperlipidemia type: mixed hyperlipidemia Qualified Code(s): E78.2 - Mixed hyperlipidemia (6) History of lung cancer: Status: Chronic Code(s): Z85.118 - Personal history of other malignant neoplasm of bronchus and lung (7) PAD (peripheral artery disease): Status: Chronic Code(s): I73.9 - Peripheral vascular disease, unspecified (8) HHD (hypertensive heart disease): Status: Chronic Code(s): I11.9 - Hypertensive heart disease without heart failure Qualifiers: Heart failure presence: without heart failure Qualified Code(s): I11.9 - Hypertensive heart disease without heart failure (9) CAD (coronary artery disease): Status: Chronic Code(s): I25.10 - Atherosclerotic heart disease of [place] coronary artery without angina pectoris Qualifiers: Associated angina: with other forms of angina Coronary Disease- Associated Artery/Lesion type: [place] artery [place] vs. transplanted heart: [place] heart Qualified Code(s): I25.118 - Atherosclerotic heart disease of [place] coronary artery with other forms of angina pectoris Meds Home Medications and Allergies Home Medications ?Medication ?Instructions ?Recorded ?Confirmed ?Type aspirin 81 mg tablet,delayed 81 mg PO DAILY 01/21/22 09/22/23 History release denosumab 60 mg/mL subcutaneous 60 mg SQ [id number] Osteoporosis #1 07/06/23 09/22/23 Rx syringe (Prolia) mL metoprolol succinate 25 mg 25 mg PO DAILY #90 tabs 08/22/23 09/22/23 Rx tablet,extended release 24 hr albuterol sulfate 90 mcg/actuation 2 inh inhalation Q6HP PRN 09/21/23 09/22/23 History aerosol inhaler shortness of breath or wheezing atorvastatin 80 mg tablet 80 mg PO HS 09/21/23 09/22/23 History azelastine 137 mcg (0.1 %) nasal 1 spray intranasal Q6HP PRN 09/21/23 09/22/23 History spray allergy symptoms clopidogrel 75 mg tablet 75 mg PO DAILY 09/21/23 09/22/23 History furosemide 40 mg tablet 40 mg PO DAILYP PRN Edema 09/21/23 09/22/23 History nitroglycerin 0.4 mg sublingual 0.4 mg sublingual Q5MINP PRN chest 09/21/23 09/22/23 History tablet pain spironolactone 25 mg tablet 25 mg PO TUTHSA 09/21/23 09/22/23 History tiotropium 2.5 mcg-olodaterol 2.5 2 puff inhalation DAILY 09/22/23 09/22/23 History mcg/actuation mist for inhalation (Stiolto Respimat) ranolazine 500 mg tablet,extended 500 mg PO BID 30 days #60 tabs 09/23/23 Rx release,12 hr New Prescriptions to Start Prescriptions: ranolazine Brock Petty Allergies Allergy/AdvReac Type Severity Reaction Status Date / Time No Known Allergies Allergy Verified 09/11/23 13:48 Discharge Plan Disposition Patient Disposition: Home, Self-Care Condition: Fair Follow up Plan Follow up with: George Shi PA [[facility]] - 10/04/23 11:00 am Prescriptions/Medication Reconciliation: New ranolazine 500 mg Tablet Extended Release 12 Hr 500 mg PO BID 30 Days Qty: 60 0RF Continued aspirin 81 mg tablet,delayed release (DR/EC) 81 mg PO DAILY Prolia 60 mg/mL syringe 60 mg SQ [id number] Qty: 1 1RF metoprolol succinate 25 mg tablet extended release 24 hr 25 mg PO DAILY Qty: 90 1RF atorvastatin 80 mg tablet 80 mg PO HS clopidogrel 75 mg tablet 75 mg PO DAILY spironolactone 25 mg tablet 25 mg PO TUTHSA nitroglycerin 0.4 mg tablet, sublingual 0.4 mg SUBLINGUAL Q5MINP PRN (Reason: chest pain) Rx Instructions: do not exceed 3 doses per episode azelastine 137 mcg (0.1 %) spray,non-aerosol 1 spray intranasal Q6HP PRN (Reason: allergy symptoms) Rx Instructions: administer into each nostril albuterol sulfate 90 mcg/actuation HFA aerosol inhaler 2 inh inhalation Q6HP PRN (Reason: shortness of breath or wheezing) furosemide 40 mg tablet 40 mg PO DAILYP PRN (Reason: Edema) Stiolto Respimat 2.5-2.5 mcg/actuation mist 2 puff INHALATION DAILY Patient Comments: INHALE 2 PUFFS BY MOUTH ONCE DAILY Problem Reconciliation Problems Reviewed?: Yes Patient Discharge Instructions ACTIVITY: Continue current activity DIET: continue same diet Patient Instructions: DI for Angina Print Language: Mexican Providers Primary Care Provider: Bebeto,Carl Admit Provider: Brock Petty Attending Provider: Brock Petty
[2023-09-23 07:27] LABS: Basophils % 0.3 % (0.1-2.0); Eosinophils # 0.2 K/mm3 (0.0-0.4); Eosinophils % 2.9 % (0.1-12.0); Hematocrit 35.3 % (42.0-52.0); Hemoglobin 12.4 g/dL (14.1-18.0); Lymphocytes # 1.8 K/mm3 (0.7-4.5); Lymphocytes % 22.7 % (10-50); Mean Corpuscular Hemoglobin 28.2 pg (27.0-31.2); Mean Corpuscular Volume 80.6 fl (80-94); Mean Platelet Volume 8.3 fl (7.4-10.4); Monocytes # 0.5 K/mm3 (0.1-1.0); Neutrophils # 5.4 K/mm3 (1.8-7.8); Platelet Count 174 K/mm3 (142-424); Red Blood Count 4.39 M/mm3 (4.60-6.20); Red Cell Distribution Width 18.7 % (11.5-17.5)
[2023-09-23 07:31] VITALS: BP 116/65; PULSE 96; RESP 18; TEMP 36.6; O2SAT 98
[2023-09-23 07:44] LABS: Alanine Aminotransferase 10 U/L (12-78); Albumin Level 3.4 g/dl (3.5-5.0); Albumin/Globulin Ratio 1.1 (1.1-1.8); Alkaline Phosphatase 112 U/L (38-126); Anion Gap 8.1 mEq/L (5-15); Aspartate Amino Transferase 30 U/L (17-59); Bilirubin,Total 0.6 mg/dl (0.2-1.3); Blood Urea Nitrogen 19 mg/dl (9-20); Calcium 9.1 mg/dl (8.4-10.2); Carbon Dioxide 28 mmol/L (22.0-30.0); Chloride 107 mmol/L (98-107); Creatinine Clearance Estimated 46 mL/min (50-200); Estimated Glomerular Filt Rate 54 ml/min (>60); GFR (African American) 65 ML/MIN (>60); Glucose 102 mg/dl (74-100); Magnesium 2.1 mg/dl (1.6-2.3); Potassium 4.1 mmoL/L (3.5-5.1); Sodium 139 mmol/L (136-145); Total Protein,Serum 6.4 g/dl (6.3-8.2)
[2023-09-23 08:00] VITALS: PULSE 90
[2023-09-23] MEDS: SPIRONOLACTONE 25MG TABLET 25 MG PO (08:46)
[2023-09-23] MEDS: METOPROLOL SUCCINATE XL 25MG TABLET 25 MG PO (08:46)
[2023-09-23] MEDS: ASPIRIN 81MG CHEWABLE TABLET 81 MG PO (08:46)
[2023-09-23] MEDS: RANOLAZINE 500MG ER TABLET 500 MG PO (08:46)
[2023-09-23] MEDS: CLOPIDOGREL 75MG TAB 75 MG PO (08:46)
--- NOTE | 2023-09-25 14:10 | CARE MANAGER ---
Contacted patient related to hospital discharge. He states he is feeling better, he has his new medication, and his aware of his follow up appointment. Denies questions or concerns. NATASHA Eastman
== END 2023-09-23 09:55 | disposition home or self-care (01) ==
LOC: ER 07:43 → 2ND 09:28
PROVIDERS: Admitting Provider Internal Medicine Adolescent Medicine; Emergency Provider Emergency Medicine; PCP Internal Medicine; Visit Provider Internal Medicine Adolescent Medicine
DX: I21.4 Non-ST elevation (NSTEMI) myocardial infarction (principal); J43.2 Centrilobular emphysema; E78.2 Mixed hyperlipidemia; Z08 Encounter for follow-up examination after completed treatment for malignant neoplasm; Z85.118 Personal history of other malignant neoplasm of bronchus and lung; I73.9 Peripheral vascular disease, unspecified; I11.9 Hypertensive heart disease without heart failure; I25.10 Atherosclerotic heart disease of native coronary artery without angina pectoris; R06.09 Other forms of dyspnea; Z09 Encounter for follow-up examination after completed treatment for conditions other than malignant neoplasm; Z87.891 Personal history of nicotine dependence; R79.0 Abnormal level of blood mineral; Z95.5 Presence of coronary angioplasty implant and graft; Z95.1 Presence of aortocoronary bypass graft; Z79.899 Other long term (current) drug therapy
CPT/HCPCS: 36415; 71045; 80053; 83605; 83735; 83880; 84484; 85025; 85378; 85610; 85730; 93005; 93308; 99291; G0378

== ENCOUNTER 2023-10-03 07:46 | Outpatient (CLI) | payer MEDICARE, SELFPAY ==
[2023-10-03 08:06] LABS: Basophils # 0.1 K/mm3 (0-0.2); Basophils % 0.6 % (0.1-2.0); Eosinophils # 0.2 K/mm3 (0.0-0.4); Eosinophils % 2.8 % (0.1-12.0); Hematocrit 42.2 % (42.0-52.0); Hemoglobin 12.6 g/dL (14.1-18.0); Lymphocytes # 1.9 K/mm3 (0.7-4.5); Lymphocytes % 22.1 % (10-50); Mean Corpuscular HGB Conc 29.9 g/dL (31.8-35.4); Mean Corpuscular Hemoglobin 24.2 pg (27.0-31.2); Mean Corpuscular Volume 80.9 fl (80-94); Mean Platelet Volume 8.6 fl (7.4-10.4); Monocytes # 0.4 K/mm3 (0.1-1.0); Monocytes % 4.7 % (1.7-9.3); Neutrophils # 5.9 K/mm3 (1.8-7.8); Neutrophils % 69.7 % (37.0-80.0); Platelet Count 262 K/mm3 (142-424); Red Blood Count 5.21 M/mm3 (4.60-6.20); Red Cell Distribution Width 18.7 % (11.5-17.5); White Blood Count 8.5 K/mm3 (4.8-10.8)
[2023-10-03 08:34] LABS: Chloride 107 mmol/L (98-107); Potassium 4.3 mmoL/L (3.5-5.1); Sodium 141 mmol/L (136-145)
[2023-10-03 08:37] LABS: Anion Gap 9.3 mEq/L (5-15); Blood Urea Nitrogen 19 mg/dl (9-20); Carbon Dioxide 29 mmol/L (22.0-30.0); Estimated Glomerular Filt Rate 49 ml/min (>60); GFR (African American) 60 ML/MIN (>60)
[2023-10-03 08:38] LABS: Calcium 9.2 mg/dl (8.4-10.2); Glucose 106 mg/dl (74-100)
[2023-10-04 13:19] LABS: NT Pro Brain Natriuretic Pep. 1250 pg/mL (0-450)
== END 2023-10-03 23:59 | disposition home or self-care (01) ==
LOC: LAB 07:47
PROVIDERS: Physician Assistant; PCP Internal Medicine; Visit Provider Internal Medicine
DX: I25.118 Atherosclerotic heart disease of native coronary artery with other forms of angina pectoris; R06.00 Dyspnea, unspecified; R53.83 Other fatigue
CPT/HCPCS: 36415; 80048; 83880; 85025

== ENCOUNTER 2023-10-26 09:53 | Outpatient (CLI) | payer MEDICARE, SELFPAY ==
--- NOTE | 2023-10-26 10:00 | XR_ITS ---
FINAL REPORT CLINICAL HISTORY: Cervical pain COMPARISON: None FINDINGS: Four views of the cervical spine were obtained. There is no fracture present. There is no malalignment. There is mild disc space narrowing at C3-4. The vertebrae are normal in height. The patient is nearly edentulous. IMPRESSION: No acute process. Mild disc space narrowing C3-4. Reviewed, Interpreted and Dictated by Lennox Boudreaux MD Transcribed by Jeri Sheppard Authenticated and [facility]
== END 2023-10-26 23:59 | disposition home or self-care (01) ==
LOC: RAD 09:55
PROVIDERS: PCP Internal Medicine; Visit Provider Internal Medicine
DX: M54.2 Cervicalgia (principal)
CPT/HCPCS: 72040

== ENCOUNTER 2023-11-22 12:07 | Outpatient (CLI) | payer MEDICARE, SELFPAY ==
[2023-11-22 14:23] LABS: Coronavirus 19, PCR Not Detected (NotDetected); Influenza A, PCR Not Detected (NotDetected); Influenza B, PCR Not Detected (NotDetected)
== END 2023-11-22 23:59 | disposition home or self-care (01) ==
LOC: LAB.DROPOF 11-23 10:23
PROVIDERS: PCP Internal Medicine; Visit Provider Internal Medicine
DX: J06.9 Acute upper respiratory infection, unspecified (principal); R09.89 Other specified symptoms and signs involving the circulatory and respiratory systems; J02.9 Acute pharyngitis, unspecified; R09.81 Nasal congestion
CPT/HCPCS: 87636

== ENCOUNTER 2023-11-23 08:36 | Outpatient (CLI) | payer MEDICARE, SELFPAY | END 2023-11-23 23:59 | disposition home or self-care (01) | LOC: LAB.DROPOF 11-28 08:39 | PROVIDERS: PCP Internal Medicine; Visit Provider Internal Medicine | DX: J06.9 Acute upper respiratory infection, unspecified (principal) | CPT/HCPCS: 87070; 87077; 87186; 87205 ==

== ENCOUNTER 2024-01-11 09:05 | Outpatient (CLI) | payer MEDICARE, SELFPAY ==
--- OUTSIDE RECORDS SUMMARY | 2024-01-11 09:08 | XMS_ITS | Encounter Summary ---
Author Organization Healthcare Address [address] [place] [address] Care Team Providers Care Gun Numberer Name Role Phone Leandro Seaman MD Unavailable [phone] Carl Tate DO Primary Care Provider Carl Gaffney MD Unavailable [phone] Encounter Details Date Type Department Care Team (Late st Contact Info) Description 12/22/2023 Orders Only [facility] [address] [place] [address] Ida Nayak PA [address] [place] [address] Chronic obstructive pulmonary disease, unspecified COPD type (CMS/HCC) (Primary Dx) Social History Tobacco Use Types Packs/Day Years Used Date Smoking Tobacco: Former Cigarettes 1 43.6 0 07/08/1959 - 07/08/2003 Passive Smoke Exposure: Never Smokeless Tobacco: Never Alcohol Use Standard Drinks/Week Comments Yes 0 (1 standard drink = 0.6 oz pur e alcohol) a beer every now and then PHQ-2 Answer Date Recorded Patient Health Questionnaire-2 Score 0 08/21/2023 Sex and Gender Information Value Date Recorded Sex Assigned at Male 07/30/2020 10:04 AM EDT Legal Sex Male 8:03 PM EDT Gender Identity Male 07/30/2020 10:04 AM EDT Sexual Orientation Straight 07/30/2020 10 :04 AM EDT documented as of this encounter Plan of Treatment Upcoming Encounters Date Type Department Care Team (Late st Contact Info) Description 01/15/2024 10:00 AM EST Ancillary Procedure [facility] Medicine Specialties [address] [place] [address] 01/15/2024 11:00 AM EST Consult [facility] Medicine Specialties [address] [place] [address] Ida Nayak PA [address] [place] [address] 06/19/2024 11:00 AM EDT Appointment [facility] Radiation [address] [facility]. [id number] [place] [address] Leandro Seaman MD [id number] [place] [address] Scheduled Orders Name Type Priority Associated Diagnoses Orde r Schedule Pulmonary function test PFT Routine Chronic obstructive pulmonary disease, unspecified COPD type (CMS/HCC) 1 Occurrences starting 12/22/2023 until 06/20/2025 documented as of this encounter Visit Diagnoses Diagnosis Chronic obstructive pulmonary disease, unspecified COPD type (CMS/HCC)- Primary documented in this encounter Additional Health Concerns Assessment Noted Time A fall risk assessment has been complete d for the patient 12/20/2023 10:03 AM EST A Body Mass Index follow-up plan has been documented for the patient 09/09/2023 9:05 PM EDT documented as of this encounter Care Teams Gun Numberer Relationship Specialty Start Date End Date Carl Tate DO [address] [place] [address] PCP - General 04/17/23 Leandro Seaman MD [address] [place], [place] [id number] [address] Consulting Physician Radiation Oncology 07/30/21 Carl Gaffney MD [facility] [place] [address] Referring Physician 05/12/23 documented as of this encounter
--- OUTSIDE RECORDS SUMMARY | 2024-01-11 09:08 | XMS_ITS | Encounter Summary ---
Author Organization [facility] Address [address] [place] [address] Care Team Providers Care Energy Conservation Director Name Role Phone Leandro Seaman MD Unavailable [phone] Carl Tate DO Primary Care Provider [phone] Carl Gaffney MD Unavailable [phone] Reason for Referral * Imaging (Routine) - Closed Specialty Diagnoses / Procedures Referred By Contac t Referred To Contact Radiology Diagnoses 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) Procedures CT Chest wo IV Contrast Leandro Seaman MD [address] [address] Phone: tel: fax: Referral ID Status Reason Start Date Expiration Date Visits Re quested Visits Authorized [id number] Closed 09/20/2023 03/21/2025 1 1 Reason for Visit * Imaging (Routine) - Closed Specialty Diagnoses / Procedures Referred By Contac t Referred To Contact Radiology Diagnoses 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) Procedures CT Chest wo IV Contrast Leandro Seaman MD [address] [address] Phone: tel: fax: Referral ID Status Reason Start Date Expiration Date Visits Re quested Visits Authorized [id number] Closed 09/20/2023 03/21/2025 1 1 Encounter Details Date Type Department Care Team (Latest Contact Info) Description 12/20/2023 7:49 AM EST - 12/20/2023 9:54 AM [facility] Encounter [facility] Radiology [address] [place] [address] 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) Discharge Disposition: Home or Self Care Social History Tobacco Use Types Packs/Day Years [...] AM EDT documented as of this encounter Medications at Time of Discharge albuterol 108 (90 Base) MCG/ACT inhaler Inhale 2 puffs 4 (four) times a day if needed for wheezing. aspirin 81 MG chewable tablet Chew 1 tablet (81 mg) 1 (one) time each day. atorvastatin (Lipitor) 80 MG tablet Take 1 tablet (80 mg) by mouth every night. 06/05/2020 azelastine (Astelin) 0.1 % nasal spray Administer 1 spray into each nostril 1 (one) time each day if needed for rhinitis. Use in each nostril as directed clopidogrel (Plavix) 75 MG tablet TAKE 1 TABLET BY MOUTH ONCE DAILY FOR ANTIPLATELET 06/06/2020 denosumab (Prolia) 60 MG/ML solution prefilled syringe 1 milliliter(s) subcutaneous every 6 months metoprolol succinate XL (Toprol-XL) 25 MG 24 hr tablet Take 1 tablet (25 mg) by mouth 1 (one) time each day. 07/27/2023 Probiotic Product (PROBIOTIC BLEND PO) Take 1 tablet by mouth As Directed (Take on Monday, , and Monday). spironolactone (Aldactone) 25 MG tablet 1 tablet (25 mg). //Mon05/19/2020 Stiolto Respimat 2.5-2.5 MCG/ACT aerosol solution inhaler Inhale 2 Inhalations 1 (one) time each day. 08/02/2023 Tiotropium [place] Monohydrate (Spiriva Respimat) 2.5 MCG/ACT inhaler Inhale 2 puffs 1 (one) time each day. documented as of this encounter Plan of Treatment Upcoming Encounters Date Type Department Care Team (Late st Contact Info) Description 01/15/2024 10:00 AM EST Ancillary Procedure [facility] Medicine Specialties [address] [place] [address] 01/15/2024 11:00 AM EST Consult [facility] Medicine Specialties [address] [place] [address] Ida Nayak PA [address] [place] [address] 06/19/2024 11:00 AM EDT Appointment [facility] Rad[facility] [id number] [place] [address] Leandro Seaman MD [address] [place] [address] documented as of this encounter Procedures Procedure Name Priority Date/Time Associated Diagnosis Comments CT CHEST WO IV CONTRAST Routine 12/20/2023 8:00 AM EST 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) documented in this encounter Results * CT Chest wo IV Contrast (12/20/2023 8:00 AM EST) Anatomical Region Laterality Modality Chest Computed Tomogra phy Impressions 12/20/2023 10:12 AM EST No evidence of thoracic progression. Stable findings as above. CRITICAL RESULT: No. COMMUNICATION: Per this written report. By electronically signing this report, I, the attending physician, attest that I have personally reviewed the images/data for the above examination(s) and agree with the final edited report. Drafted by OMAR Madison on 12/20/2023 9:11 AM Final report signed by Lupe Zelaya MD on 12/20/2023 10:12 AM Narrative 12/20/2023 10:12 AM EST CLINICAL INDICATION: Adenocarcinoma left upper lobe(2014), post chemoradiation, recurrence(2021), non-metastatic, assess treatment response TECHNIQUE: Multiple CT helical images were obtained from thoracic inlet through upper abdomen without administration of IV contrast. Total DLP (Dose-Length Product): 245.49 mGy.cm. Please note: The reported value represents the total of one or more individual components during the CT acquisition on this date and at this time, and as such, the same value may appear in more than one CT report depending on the interpreting/reporting physicians. COMPARISON: CT chest July 17, 2023 PET/CT September 04, 2023 FINDINGS: Mediastinum and Pleura: No mediastinal adenopathy. Coronary artery calcifications and stents. Decreased trace left effusion. No pericardial effusion. Lungs: Stable narrowing of left bronchus and pulmonary artery, likely related to fibrosis. Unchanged bronchial narrowing in the left hilum. Left upper lobe paramediastinal soft tissue thickening is unchanged in size. Mild right greater than left emphysema. Redemonstration of scattered tiny bilateral small nodularities with no significant change. Upper Abdomen: Cholecystectomy. Left renal cyst. Bilateral adrenal nodules, 15 mm on left and 10 mm on right. Musculoskeletal: Sternotomy. Sclerosis and fracture of right first rib, may be related to post radiotherapy changes (series 6 image [id number]). Procedure Note Lupe Zelaya MD - 12/20/2023 CLINICAL INDICATION: Adenocarcinoma left upper lobe(2014), post chemoradiation,recurrence(2021), non-metastatic, assess treatment response TECHNIQUE: Multiple CT helical images were obtained from thoracic inlet through upperabdomen without administration of IV contrast. Total DLP (Dose-Length Product): 245.49 mGy.cm. Please note: The reportedvalue represents the total of one or more individual components during theCT acquisition on this date and at this time, and as such, the same valuemay appear in more than one CT report depending on theinterpreting/reporting physicians. COMPARISON: CT chest July 17, 2023 PET/CT September 04, 2023 FINDINGS: Mediastinum and Pleura: No mediastinal adenopathy. Coronary arterycalcifications and stents. Decreased trace left effusion. No pericardialeffusion. Lungs: Stable narrowing of left bronchus and pulmonary artery, likelyrelated to fibrosis. Unchanged bronchial narrowing in the left hilum. Leftupper lobe paramediastinal soft tissue thickening is unchanged in size.Mild right greater than left emphysema. Redemonstration of scattered tinybilateral small nodularities with no significant change. Upper Abdomen: Cholecystectomy. Left renal cyst. Bilateral adrenalnodules, 15 mm on left and 10 mm on right. Musculoskeletal: Sternotomy. Sclerosis and fracture of right first rib,may be related to post radiotherapy changes (series 6 image [id number]). IMPRESSION: No evidence of thoracic progression. Stable findings as above. CRITICAL RESULT: No. COMMUNICATION: Per this written report. By electronically signing this report, I, the attending physician, jennifer I have personally reviewed the images/data for the aboveexamination(s) and agree with the final edited report. Drafted by OMAR Madison on 12/20/2023 9:11 AM Final report signed by Lupe Zelaya MD on 12/20/2023 10:12 AM Leandro Seaman MD IMG CT PROCEDURES Final Resu lt documented in this encounter Visit Diagnoses Diagnosis 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) documented in this encounter Additional Health Concerns Assessment Noted Time A fall risk assessment has been complete d for the patient 12/20/2023 10:03 AM EST A Body Mass Index follow-up plan has been documented for the patient 09/09/2023 9:05 PM EDT documented as of this encounter Care Teams Energy Conservation Director Relationship Specialty Start Date End Date Carl Tate DO [address] [place] [address] PCP - General 04/17/23 Leandro Seaman MD [address] [facility] [address] [place] [address] Consulting Physician Radiation Oncology 07/30/21 Carl Gaffney MD [address] [id number] Referring Physician 05/12/23 documented as of this encounter
--- OUTSIDE RECORDS SUMMARY | 2024-01-11 09:08 | XMS_ITS ---
Author Organization [facility] Address [address] [place] [address] Care Team Providers Care Ferryboat Operator Cable Name Role Phone Leandro Seaman MD Unavailable [phone] Carl Tate DO Primary Care Provider [phone] Carl Gaffney MD Unavailable [phone] Active Problems Problem Noted Date Diagnosed Date Lung cancer 12/20/2023 H/O heart artery stent 05/15/2023 S/P CABG x 2 05/15/2023 Acute blood loss anemia 05/15/2023 Hypocalcemia 05/15/2023 Overweight 05/15/2023 Volume overload 05/13/2023 Overview (05/13/2023): 40 IV lasix CTM CAD in [place] artery 05/12/2023 Overview (05/13/2023): -S/P PCI [id number] -[facility] 04/27/23: LAD stent open, LMA stent 80% stenosis, circ with RCA stent #1 and #2 in prox and mid. 50% stenosis of prox, 70% stenosis distal. Circ stent with 90% stenosis prox to obtuse 1 and 2. -S/P 3 v CABG per Sekela 05/12/23 - GDMT Acute postoperative pain 05/12/2023 Overview (05/13/2023): MM pain control COPD (chronic obstructive pulmonary disease) 06/2023 Overview (05/13/2023): Resume home meds when appropriate Duonebs while inpatient Thrombocytopenia 05/12/2023 Overview (05/13/2023): Post-op, mild, expected Stable starting DVT ppx Osteoporosis 05/03/2023 CAD (coronary artery disease) 05/03/2023 HLD (hyperlipidemia) 05/03/2023 Overview (05/13/2023): Resume home statin HHD (hypertensive heart disease) 05/03/2023 PAD (peripheral artery disease) 05/03/2023 Primary hypertension 06/19/2014 Overview (05/13/2023): Resume home meds when appropriate Current Oncology Plans No current plan information found. Past Plans No past plan information found. 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 05/16/2023 Hypophosphatemia 05/15/2023 05/16/2023 Hypermagnesemia 05/15/2023 05/16/2023 Hyperkalemia 05/15/2023 05/16/2023 History of thoracic irradiation 05/12/2023 05/16/2023 Overview (05/13/2023): Left chest wall Rad Tx 2021 - No PEÑA used - See op note for grafts used Acute respiratory failure with hypoxia 05/12/2023 05/16/2023 Overview (05/13/2023): Intubated for OR 4/5/24 To ICU with sedation post Op Extubated to DE Continue to wean as able Hyperglycemia 05/12/2023 05/16/2023 Overview (05/13/2023): A1c is 4.9 pre-op - Hyperglycemia post op On SSI as needed Malignant neoplasm of upper lobe of left lung 07/31/19 21 05/15/2023 Cancer Staging:Clinical stage from 08/11/2021:Stage IA2(cT1b, cN0, cM0) - Unsigned
--- OUTSIDE RECORDS SUMMARY | 2024-01-11 09:08 | XMS_ITS | Encounter Summary ---
Author Organization [facility] Address [address] [place] [address] Care Team Providers Care Assistant Dean Name Role Phone Brandan Early MD Unavailable [phone] Peg Delgado MD Primary Care Provider Ramiro granados Reason for Visit * Reason Onset Date Comments Medication Management 01/17/2022 Medication Interolerance 01/17/2022 Encounter Details Date Type Department Care Team (Late st Contact Info) Description 01/17/2022 Telephone [facility] Physicians - Heart & Vascular, [place] [address] [facility] [address] [place] [address] Brandan Early MD [facility] [address] [place], [place] [id number] Medication Management; Medication Interolerance Social History Tobacco Use Types Packs/Day Years Used Date Smoking Tobacco: Former Cigarettes Alcohol Use Standard Drinks/Week Comments Yes 0 (1 standard drink = 0.6 oz pur e alcohol) Sex and Gender Information Value Date Recorded Sex Assigned at Not on file Legal Sex Male 10:58 AM EST Gender Identity Not on file Sexual Orientation Not on file COVID-19 Exposure Response Date Recorded In the last 10 days, have yo u been in contact with someone who was confirmed or suspected to have Coronavirus/COVID-19? No / Unsure 12/28/2021 11:44 AM EST documented as of this encounter Miscellaneous Notes * Telephone Encounter - BotTricia orellana RN - 01/18/2022 5:03 PM EST Reviewed with SAGRARIO today - he states patient should restart ASA 81 mg at this time. NIGELK did state that patient can trial taking decreased dose of Pletal to see if he can tolerate thatwithout GI side effects. Patient should keep Dr. Gaffney updated regarding his medications going forward. Called patient, he stated he had no more diarrhea since holding medication last night and this AM. He would like to remain off medication for now, but will restart at 1/2 dose next week to see if he can tolerate. He will restart ASA 81 mg at this time. * Telephone Encounter - Tricia Holland RN - 01/17/2022 5:16 PM EST Reports diarrhea occurring daily at this time, frequently at night - patient associates this with medications started after Brachytherapy. He has now completed diltiazem and sirolimus script, remains on Pletal BID. Primary Vacuum Metalizing Supervisor (Dr. René Gaffney) has now stopped patient Xarelto, so patient is taking Pletal and clopidogrel only (did not restart ASA.) Advised patient could trial holding Pletal for 1-2 days to see if symptoms improve. Did advise thathis primary tandem mill roller would likely need to make decisions regarding further care, as NIGELK only saw him for Brachy treatment, but will review with SAGRARIO what medication recommendations he would make for patient at this time. * Telephone Encounter - Karishma Randhawa - 01/17/2022 8:32 AM EST Pt is calling in to see if Dr will change the medication Cilostazol. He was put on it on 12/28 and on 12/30 he started having bad bouts of Diarrhea. He states that it starts every night Between 3-4 he went 6x from 4-5 2x. He said its mostly pure water. Will you please call the pt back when available to advise. documented in this encounter Plan of Treatment Not on file documented as of this encounter Visit Diagnoses Not on filedocumented in this encounter Care Teams Assistant Dean Relationship Specialty Start Date End Date Peg Delgado MD [address] [place] [address] PCP - General Family Medicine 12/28/21 Brandan Early MD [address] [place] [address] Interventional Cardiology 12/23/21 documented as of this encounter
--- OUTSIDE RECORDS SUMMARY | 2024-01-11 09:08 | XMS_ITS | Clinical Summary ---
Author Organization [facility] Address [address] [place] [address] Care Team Providers Care Outsole Caser Name Role Phone Leandro Seaman MD Unavailable [phone] Carl Tate DO Primary Care Provider [phone] Carl Gaffney MD Unavailable [phone] Allergies No known active allergies Medications atorvastatin (Lipitor) 80 MG tablet Take 1 tablet (80 mg) by mouth every night. 1 Active clopidogrel (Plavix) 75 MG tablet TAKE 1 TABLET BY MOUTH ONCE DAILY FOR ANTIPLATELET 1 Active denosumab (Prolia) 60 MG/ML solution prefilled syringe 1 milliliter(s) subcutaneous every 6 months Active spironolactone (Aldactone) 25 MG tablet 1 tablet (25 mg). //Sat 1 Active aspirin 81 MG chewable tablet Chew 1 tablet (81 mg) 1 (one) time each day. Active Probiotic Product (PROBIOTIC BLEND PO) Take 1 tablet by mouth As Directed (Take on Monday, , and Monday). Active azelastine (Astelin) 0.1 % nasal spray Administer 1 spray into each nostril 1 (one) time each day if needed for rhinitis. Use in each nostril as directed Active albuterol 108 (90 Base) MCG/ACT inhaler Inhale 2 puffs 4 (four) times a day if needed for wheezing. Active Tiotropium [place] Monohydrate (Spiriva Respimat) 2.5 MCG/ACT inhaler Inhale 2 puffs 1 (one) time each day. Active furosemide (Lasix) 40 MG tablet Take 1 tablet (40 mg) by mouth 1 (one) time each day. 30 tablet 4 Active Stiolto Respimat 2.5-2.5 MCG/ACT aerosol solution inhaler Inhale 2 Inhalations 1 (one) time each day. 4 Active metoprolol succinate XL (Toprol-XL) 25 MG 24 hr tablet Take 1 tablet (25 mg) by mouth 1 (one) time each day. 4 Active ranolazine (Ranexa) 1000 MG 12 hr tablet Take 1 tablet (1,000 mg) by mouth 2 (two) times a day. Do not crush, chew, or split. Active Active Problems Problem Noted Date Diagnosed Date Lung cancer 12/20/2023 H/O heart artery stent 05/15/2023 S/P CABG x 2 05/15/2023 Acute blood loss anemia 05/15/2023 Hypocalcemia 05/15/2023 Overweight 05/15/2023 Volume overload 05/13/2023 Overview (05/13/2023): 40 IV lasix CTM CAD in lower [place] artery 05/12/2023 Overview (05/13/2023): -S/P PCI [id number] -[facility] 04/27/23: LAD stent open, LMA stent 80% stenosis, circ with RCA stent #1 and #2 in prox and mid. 50% stenosis of prox, 70% stenosis distal. Circ stent with 90% stenosis prox to obtuse 1 and 2. -S/P 3 v CABG per Mike 05/12/23 - GDMT Acute postoperative pain 05/12/2023 [...] Overview (05/13/2023): Resume home meds when appropriate Resolved Problems Problem Noted Date Diagnosed Date Resolved Date Dyspnea on exertion 05/15/2023 05/16/19 Exertional angina 05/15/2023 05/16/2023 Leukocytosis 05/15/2023 05/16/2023 Tobacco abuse, in remission 05/15/2023 05/16/2023 Hypophosphatemia 05/15/2023 05/16/2023 Hypermagnesemia 05/15/2023 05/16/2023 Hyperkalemia 05/15/2023 05/16/2023 History of thoracic irradiation 05/12/2023 05/16/2023 Overview (05/13/2023): Left chest wall Rad Tx 2021 - No PEÑA used - See op note for grafts used Acute respiratory failure with hypoxia 05/12/2023 05/16/2023 Overview (05/13/2023): Intubated for OR 05/12/23 To ICU with sedation post Op Extubated to [place] Continue to wean as able Hyperglycemia 05/12/2023 05/16/2023 Overview (05/13/2023): A1c is 4.9 pre-op - Hyperglycemia post op On SSI as needed Malignant neoplasm of upper lobe of left lung 07/31/19 21 05/15/2023 Cancer Staging:Clinical stage from 08/11/2021:Stage IA2(cT1b, cN0, cM0) - Unsigned Encounters Date Type Department Care Team Description 01/08/2024 Travel 12/22/2023 Orders Only [facility] [address] [place] [id number] Ida Nayak PA Chronic obstructive pulmonary disease, unspecified COPD type (CMS/HCC) (Primary Dx) 12/20/2023 9:55 AM EST - 12/20/2023 11:59 PM EST Hospital Encounter [facility] [id number] [place] [address] Leandro Seaman MD Chronic obstructive pulmonary disease with acute lower respiratory infection (CMS/HCC) (Primary Dx) Discharge Disposition: Still a Patient 12/20/2023 7:49 AM EST - 12/20/2023 9:54 AM EST Hospital Encounter [facility] [address] [place] [phone] 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) Discharge Disposition: Home or Self Care 12/20/2023 Travel 12/17/2023 Travel from Last 3 Months Immunizations Name Administration Dates Next Due Hep A, Adult 08/05/2018,01/24/2018 Influenza, high-dose, quadrivalent 10/03/2019, Influenza, injectable, quadrivalent, preservativ e free 11/06/2014 Pneumococcal 20-raymond Conj Vaccine 03/14/2022 Pneumococcal, Unspecified 10/13/2015 Rsvpref, Recombinant, Protein Subunit, Adjuvent 12/14/2022 TD (adult), 2 Lf tetanus tox oid, preservative free, adsorbed 04/10/1996 Family History Medical History Relation Name Comments Lung cancer Brother 1 Family history of lung cancer Throat cancer Brother 2 Family history of throat cancer Diabetes Mother Heart disease Mother Hypertension Mother Anesthesia problems Neg Hx Malig Hyperthermia Neg Hx Relation Name Status Comments Brother 1 Brother 2 Mother Social History Tobacco Use Types Packs/Day Years Used Date Smoking Tobacco: Former Cigarettes 1 43.6 0 07/08/1959 - 07/08/2003 Passive Smoke Exposure: Never Smokeless Tobacco: Never Tobacco Cessation:Counseling Given: Yes Alcohol Use Standard Drinks/Week Comments Yes 0 [...] Orientation Straight 07/30/2020 10 :04 AM EDT Last Filed Vital Signs Vital Sign Reading Time Taken Comments Blood Pressure 120/63 12/20/2023 9:59 AM EST Pulse 73 12/20/2023 9:59 AM EST Temperature 36.5 ??C (97.7 ??F) 12/20/2023 9:59 AM ES T Respiratory Rate 16 12/20/2023 9:59 AM EST Oxygen Saturation 97% 12/20/2023 9:59 AM EST Inhaled Oxygen Concentration - - Weight 68.5 kg (151 lb 0.2 oz) 12/20/2023 9:59 A M EST Height 172.7 cm (5' 8 ) 12/20/2023 9:59 AM EST Body Mass Index 22.96 12/20/2023 9:59 AM EST Plan of Treatment Upcoming Encounters Date Type Department Care Team (Late st Contact Info) Description 01/15/2024 10:00 AM EST Ancillary Procedure [facility] [address] [place] [address] 01/15/2024 11:00 AM EST Consult [facility] [address] [place] [address] Ida Nayak PA [address] [place] [address] 06/19/2024 11:00 AM EDT Appointment [facility] [id number] [place] [id number] Leandro Seaman MD [address] [place] [address] Health Maintenance Due Date Last Done Comments [facility]-Bone Density Scan 1945 [facility]-Hepatitis C Screening 1945 [facility]-Medicare Annual Wellness (AWV) 1945 [facility]-Infant/Child/Adol SDOH Screenings 1945 [facility]- SDOH Screenings 07/30/1965 [facility]-Adult SDOH Screenings 07/30/1965 [facility]-Zoster Vaccines (1 of 2) 07/30/1966 [facility]-DTaP,Tdap,and Td Vaccines (1 - Tdap) 04/11/1996 04/10/1996 [facility]-Influenza Vaccine (#1) 10/08/202310/02, 10/13/2015, 11/06/2014 [id number] Vaccine ( season) 2023 10/11/2023, 11/21/2022, 11/10/2021, Additional history exists [facility]-Depression Screening 08/20/2024 08/21/2023 [facility]-Hepatitis A Vaccines Aged Out 08/05/2018, 01/06 No longer eligible based on patient's age to complete this topic [facility]-Pneumococcal Vaccine: 65+ Years Completed 03/14/2022, 10/13/2015 [facility]-RSV Vaccine: 60+ Years or Completed 12/14/2022 [facility]-HIB Vaccines Aged Out No longer e ligible based on patient's age to complete this topic [facility]-HPV Vaccines Aged Out No longer e ligible based on patient's age to complete this topic [facility]-IPV Vaccines Aged Out No longer e ligible based on patient's age to complete this topic [facility]-Rotavirus Vaccines Aged Out No lo nger eligible based on patient's age to complete this topic Medical Devices Implanted Type Area Warehouse Attendant Device Identifier Shelf Expiration Date Model / Serial / Lot Plate Plate Left: Wrist Stent Stent N/A: Heart Procedures Procedure Name Priority Date/Time Associated Diagnosis Comments CT CHEST WO IV CONTRAST Routine 12/20/2023 8:00 AM EST 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) from Last 3 Months Results * CT Chest wo IV Contrast [...] signing this report, I, the attending physician, attestthat I have personally reviewed the images/data for the aboveexamination(s) and agree with the final edited report. 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 Yes Care Teams Outsole Caser Relationship Specialty Start Date End Date Carl Tate DO [address] [place] [id number] PCP - General 04/17/23 Leandro Seaman MD [address] [place] [address] [id number] [place] [address] Consulting Physician Radiation Oncology 07/30/21 Carl Gaffney MD [address] [place] [id number] Referring Physician 05/12/23
--- OUTSIDE RECORDS SUMMARY | 2024-01-11 09:08 | XMS_ITS | Encounter Summary ---
Author Organization [facility] Address [address] [place] [address] Care Team Providers [facility] Specialist Name Role Phone Brandan Early MD Unavailable [phone] Peg Delgado MD Primary Care Provider Ramiro granados Reason for Visit * Auth/Cert (Routine) Specialty Diagnoses / Procedures Referred By Contac t Referred To Contact Diagnoses Coronary stent restenosis, sequela Coronary stent restenosis, sequela [T82.855S] Procedures WI CATH PLACEMENT & NJX CORONARY ART ANGIO IMG S&I WI PRQ TRLUML CORONARY ANGIOPLASTY ONE ART/BRANCH WI TCAT PLACEMENT RADJ DLVR DEV SBSQ C IV BRACHYTX SELECTIVE CORONARY ANGIOGRAPHY INTERVENTION - CORONARY CORONARY BRACHYTHERAPY Referral ID Status Reason Start Date Expiration Date Visits Re quested Visits Authorized [id number] 1 1 Encounter Details Date Type Department Care Team (Latest Contact Info) Description 12/28/2021 11:40 AM EST - 12/28/2021 8:42 PM [facility] Hospital Encounter Cardiovascular Recovery Unit (CVRU) [address] [place] [address] Brandan Early MD [address] [facility] [address] [place], [place] [address] Coronary stent restenosis, sequela; Coronary stent restenosis, sequela Discharge Disposition: Home or Self Care Social History Tobacco Use Types Packs/Day Years Used Date Smoking Tobacco: Former Cigarettes Tobacco Cessation:Counseling Given: Not Answered Alcohol Use Standard Drinks/Week Comments Yes 0 [...] AM EST documented as of this encounter Last Filed Vital Signs Vital Sign Reading Time Taken Comments Blood Pressure 112/55 12/28/2021 8:30 PM EST Pulse 63 12/28/2021 8:15 PM EST Temperature 36.7 ??C (98.1 ??F) 12/28/2021 12:[address] Respiratory Rate 16 12/28/2021 12:42 PM EST Oxygen Saturation 96% 12/28/2021 5:30 PM EST Inhaled Oxygen Concentration - - Weight 72.1 kg (159 lb) 12/28/2021 12:00 PM EST Height 167.6 cm (5' 6 ) 12/28/2021 12:00 PM EST Body Mass Index 25.66 12/28/2021 12:00 PM EST documented in this encounter Discharge Instructions * Discharge Instructions* Jet Dowling, RN - 12/28/2021 5:24 PM EST Discharge Instructions for PCI *YOU MUST REMAIN IN THE COMPANY OF A RESPONSIBLE ADULT FOR THE NEXT 24 HOURS* MEDICATIONS Maintain strict adherence to the medication plan as prescribed by your physician. If you have any questions or concerns about your medications, please call your physician???s office. You and or a responsible designated person should keep a list of your prescription medications, over the counter medications, and supplemental medications that you use regularly. This medication listshould be updated each time your medications, doses, or times are changed. It is very important that you bring your accurately updated list of medications or the actual medications in the original bottle to all of your physician appointments or hospital visits. Medications Prescribed: filled by meds to beds Thienopyridine prescribed: Yes KELSIE-I Prescribed: Yes ARB Prescribed: ACEI perscribed: NA Beta Slava Prescribed: Yes Aspirin prescribed: No Other reasons documented by physician/advanced practice nurse/physician orthotics assistant (physician/OPERATOR PREFINISH/PA) or pharmacist Statin prescribed: Yes Antithrombotic prescribed: N/A-Not an Ischemic Stroke patient Anticoagulant prescribed:No- No Atrial Fibrillation NUTRITION You may resume your usual diet GENERAL DRIVING: In the first 24 hours, [address] not drive, operate heavy equipment or hazardous machinery after the procedure or while taking pain medications WOUND CARE DURING THE FIRST 24 HOURS FOLLOWING YOUR PROCEDURE Keep procedure site dressing dry and intact. AFTER 24 HOURS You may shower ONLY - Do not submerge/soak in a bathtub, hot tub or swimming pool until the puncture site is completely healed (usually 5 - 7 days). You may remove the dressing from the procedure site at the time of first shower. Dry thoroughly after showers and place a Band-aid style adhesive dressing over the site until site is completely healed. Keep the site clean and dry to prevent infection. DO NOT apply powder, lotion or ointment to the site. ACTIVITY During the first 24 hours following you procedure: Do not sit in the upright position or in a straight back chair Relax on a sofa, reclining chair or bed with 1 to 2 pillows behind your head. Avoid any unnecessary bending at the hips or knees. Attempt to keep affected leg straight. You may climb 1 flight of stairs once today and limit walking to bathroom visits only. After 24 hours Avoid strenuous activities such as running, vigorous exercise, stair climbing or sexual activity for 5-7 days. Do not lift greater than 5-10 pounds for 5-7 days Call your doctor if one of the following occurs: Active bleeding (a continuous flow of blood) or a hematoma (a growing firmness under the skin) at the puncture site is a medical emergency. Call 911. Lie flat and have someone apply pressure to the site until emergency personnel arrive. Any of the symptoms that brought you to the hospital continue or worsen If you experience swelling, excessive pain, numbness, tingling, or coldness in the extremity used for the procedure If you develop a rash If you show any signs of an infection: redness, warmth, excessive drainage, poorly healing site, fever, or chills If you have persistent tenderness at the procedure site You gain 3 pounds or more in 24 hours You have a rapid or irregular pulse You are unable to urinate You have severe nausea, vomiting, or diarrhea You have difficulty breathing (increased shortness of breath), if you have to increase the number of pillows to sleep Call your doctor if: Your temperature is 101 degrees F or higher. Incision: If you have redness, swelling, excessive pain, lump formation, numbness, signs of infection or slight bleeding, oozing, or drainage from incision(s). If excessive bleeding occurs, hold firm, direct pressure at the site for 5-10 minutes and call 911. Return to doctor: In 7-10 days. and Call for appointment: Dr. Brandan Early Office SPECIAL INSTRUCTIONS *You may take acetaminophen (TYLENOL) or prescribed pain medication to alleviate any discomfort following the procedure. *No Smoking: Information regarding smoking cessation and/or risk factors associated with tobacco products given. PATIENT EDUCATION YOU AND OR A RESPONSIBLE DESIGNATED PERSON SHOULD KEEP A LIST OF YOUR PRESCRIPTION MEDICATIONS, OVER THE COUNTER MEDICATIONS AND SUPPLEMENTAL MEDICATIONS THAT YOU USE REGULARLY. THIS MEDICATION LIST SHOULD BE UPDATED EACH TIME YOUR MEDICATIONS, DOSES, OR TIMES ARE CHANGED. IT IS VERY IMPORTANT THAT YOU BRING YOUR ACCURATELY UPDATED LIST OF MEDICATIONS OR THE ACTUAL MEDICATIONS IN THE ORIGINAL BOTTLES TO ALL OF YOUR PHYSICIAN APPOINTMENTS OR HOSPITAL VISITS. documented in this encounter Medications at Time of Discharge atorvastatin (LIPITOR) 80 mg Tablet Take by mouth nightly at bedtime. 10/06/2021 clopidogreL (PLAVIX) 75 mg tablet TAKE 1 TABLET BY MOUTH ONCE DAILY FOR ANTIPLATELET 12/05/2021 finasteride (PROSCAR) 5 mg tablet Take by mouth daily. 12/08/2021 furosemide (LASIX) 20 mg tablet Take by mouth daily. Takes three times a week, Monday, Mon, Monday10/06/2021 L.acid/L.casei/B .bif/B.karely/FOS (PROBIOTIC BLEND PO) Take by mouth. metoprolol succinate (TOPROL) 25 mg XL tablet Take by mouth daily. 12/17/2021 Ranolazine (RANEXA) 500 mg Tablet Sustained Release 12 hr Take 1 Tablet (500 mg) by mouth 2 times daily. 60 Tablet 12/28/2021 spironolactone (ALDACTONE) 25 mg tablet TAKE 1 TABLET BY MOUTH ONCE DAILY FOR FLUID 09/27/2021 cilostazoL (PLETAL) 100 mg tablet Take 0.5 Tablets (50 mg) by mouth 2 times daily. 60 Tablet 5 12/28/2021 2 diltiazem (CARDIZEM CD) 120 mg capsule Take 1 Capsule (120 mg) by mouth daily for 13 days 13 Capsule 12/28/2021 4:33 PM EST 12/27/2021 2 sirolimus (Rapamune) 1 mg Tablet Take 3 Tablets (3 mg) by mouth daily for 13 days. 39 Tablet 12/28/2021 4:33 PM EST 12/27/2021 2 Xarelto 2.5 mg Tablet Take by mouth 2 times daily. 11/01/2021 2 documented as of this encounter Progress Notes * Emily Leroy NP - 12/29/2021 3:53 PM EST Attempted to contact patient at home, no answer * Emily Leroy NP - 12/28/2021 3:39 PM EST [facility] Assessment: 1. CAD - s/p PCI with brachytherapy to CX ISR per Dr. Brandan Early. Plan for Same Day Post PCI discharge at 2100. Currently denies any CP/SOB. ECG shows no significant changes. Continue Plavix, resume Eliquis. No aspirin per Dr. Early. Rapamune, pletal and diltiazem ordered meds to beds. 2. HTN continue current regimen 3. Dyslipidemia LDL 67. Continue statin therapy 4. PAD 5. Hyperkalemia K+5.2 on 12/07/2021. Repeat labs today with K+ 4.5. 6. Lung cancer Initially diagnosed in 2013, had chemo and radiation. Reoccurance with radiation this year. 7. Reported by Dr. Jarvis that patient has Afib. [place] and family not aware of this diagnosis. SR on EKG today. Taking Eliquis BID 2.5 mg. Instructed to resume tomorrow evening, 12/29. 8. Disposition - Home with family. They were instructed on bleeding risks and precautions. They were instructed for any bleeding from the access site, swelling, sharp pain, or feeling of a pop, then he will lay flat and the family member will place direct pressure over the access site and dial 911. They both verbalized understanding of this. Plan: ??? Discharge to home at 2100 if patient meets all discharge criteria. RN to call supervisor laboratory or Interventionalist loss control consultant if patient does not meet criteria. ??? Medications changes include: Continue Plavix. Aspirin discontinued. Resume eliquis 12/29 in theafternoon. Pletal Rapamune and Diltiazem ordered Meds to beds. Ranexa dose decreased to 500 mg BID . Counseled re: risk factor and lifestyle modification, medication compliance, and medical follow-up. ??? Follow up with Dr. Gaffney, primary rn unit manager, in 1 week Patient instructed to call the office to schedule this. ??? Patient informed they will receive a follow up phone call tomorrow. Subjective Carlo is lying in bed denies CP/SOB Objective Physical Exam: BP 122/61 Pulse 67 Temp 98.1 ??F (36.7 ??C) (Oral) Resp 16 Ht 5' 6 (1.676 m) Wt 159 lb (72.1 kg) SpO2 100% BMI 25.66 kg/m?? No intake or output data in the 24 hours ending 12/28/21 1547 Recent Weights: 12/28/21 1200 Weight: 159 lb (72.1 kg) Vitals Reviewed, see nursing chart. General appearance Alert, awake, oriented x3. No distress. Neuro Gossly normal. HEENT Normocephalic, atraumatic. Eyes appear normal. Neck No lymph node enlargement. Lung Clear to auscultation bilaterally. Heart Regular rate and rhythm. S1, S2 normal. No click, rub or gallop. No murmur. No carotid bruit.No JVD. No edema. Abdomen Soft, non-tender. Bowel sounds normal. No masses, no organomegaly. Musculoskeleta No gross abnormalities. Cath Access site RFA access site without hematoma, redness, swelling, or bruising. Distal pulses intact. Denies any pain/paresthesia at access site. Pulses Distal pulses intact. Skin Skin color, texture, turgor normal. No rashes or lesions. Patient Instructions: Current Discharge Medication List CONTINUE these medications which have CHANGED Details cilostazoL (PLETAL) 100 mg tablet Take 0.5 Tablets (50 mg) by mouth 2 times daily. Qty: 60 Tablet, Refills: 5 Start date: 12/28/2021 Ranolazine (RANEXA) 500 mg Tablet Sustained Release 12 hr Take 1 Tablet (500 mg) by mouth 2 times daily. Qty: 60 Tablet, Refills: 0 Start date: 12/28/2021 CONTINUE these medications which have NOT CHANGED Details atorvastatin (LIPITOR) 80 mg Tablet Take by mouth nightly at bedtime. clopidogreL (PLAVIX) 75 mg tablet TAKE 1 TABLET BY MOUTH ONCE DAILY FOR ANTIPLATELET diltiazem (CARDIZEM CD) 120 mg capsule Take 1 Capsule (120 mg) by mouth daily for 13 days Qty: 13 Capsule, Refills: 0 finasteride (PROSCAR) 5 mg tablet Take by mouth daily. furosemide (LASIX) 20 mg tablet Take by mouth daily. Takes three times a week, Monday, Mon, MONDAY L.acid/L.casei/B.bif/B.karely/FOS (PROBIOTIC BLEND PO) Take by mouth. metoprolol succinate (TOPROL) 25 mg XL tablet Take by mouth daily. sirolimus (Rapamune) 1 mg Tablet Take 3 Tablets (3 mg) by mouth daily for 13 days. Qty: 39 Tablet, Refills: 0 Comments: Transplant date: N/A spironolactone (ALDACTONE) 25 mg tablet TAKE 1 TABLET BY MOUTH ONCE DAILY FOR FLUID Xarelto 2.5 mg Tablet Take by mouth 2 times daily. STOP taking these medications aspirin 81 mg Tablet, Delayed Release (E.C.) Comments: Reason for Stopping: diltiazem (DILACOR XR) 120 mg XR capsule Comments: Reason for Stopping: Data Review: Recent Labs 12/28/21 1230 NA 139 K 4.5 CO2 23 BUN 10 CREATININE 1.01 Recent Labs 12/28/21 1230 WBC 8.19 HGB 14.0 HCT 44.8 MCV 90.9 PLT 193 No results found for: CKTOTAL, CKMB, CKMBINDEX, TROPONINI Lab Results Component Value Date HDL 37 (LOW) 12/28/2021 TRIG 104 12/28/2021 CHOLHDL 3.4 12/28/2021 Activity: 1. No lifting/straining greater than 5-10 pounds for 1 week after procedure. 2. No strenuous exercising for 7 days after procedure. 3. No driving for 24 hours. Disposition: home Aspirin prescribed: No Other reasons documented by physician/advanced practice nurse/physician orthotics assistant (physician/OPERATOR PREFINISH/PA) or pharmacist On Eliquis, Plavix and Pletal. No aspirin per Dr. Early Thienopyridine prescribed: Yes KELSEI-I or ARBPrescribed: EF greater than 40% NA Beta Slava prescribed: Yes Statin prescribed: Yes Left Ventricular Ejection Fraction (LVEF) is 55 % Echo Total time spent on this patient was >30 minutes including time spent with the patient, reviewing data, completing medical records, and communication with the patient. Signed: Emily Leroy NP Interventional Cardiology [phone] 12/28/2021 3:47 PM [facility] * Becca Dupont MD - 12/28/2021 12:49 PM EST RADIATION ONCOLOGY CONSULTATION Carlo Noriega [id number] DATE OF CONSULTATION: 12/28/2021 PCP: Peg Delgado MD MASTER POLICE DETECTIVE: Brandan Early MD DIAGNOSIS: ICD-10-CM 1. Coronary stent restenosis, sequela T82.855S 2. Coronary stent restenosis, sequela T82.855S STAGE: Not applicable PERFORMANCE STATUS: ECO. Restricted in physically strenuous activity but ambulatory and able to carry out work of alight or sedentary nature, e.g., light house work, office work. HISTORY OF PRESENT ILLNESS: Carlo Noriega is a very pleasant 76 y.o. gentleman with in stent restenosis of the circumflex artery. He was identified as a candidate for cardiac brachytherapy. Dr. Early has very kindly requested consultation with the Radiation Oncology service. REVIEW OF SYSTEMS: The patient does not currently report chest pain PAIN ASSESSMENT: 1. No pain currently reported MEDICATIONS: Current Facility-Administered Medications Medication Dose Route Frequency Provider Last Rate Last Admin ??? aspirin chewable tablet 324 mg 324 mg Oral Pre-Procedure Tiffani Rocha, RON ??? clopidogreL (PLAVIX) tablet 600 mg 600 mg Oral Pre-Procedure Tiffani Rocha, PERFORMANCE IMPROVEMENT DIRECTOR ??? dextrose 50 % injection 25-50 mL 25-50 mL Intravenous PRN Tiffani Rocha, RON ??? sodium chloride 0.9% IV solution 125 mL/hr Intravenous Pre-Op Continuous Tiffani Rocha NP ALLERGIES: No Known Allergies PAST MEDICAL HISTORY: Past Medical History: Diagnosis Date ??? Asthma PAST SURGICAL HISTORY: Past Surgical History: Procedure Laterality Date ??? CARDIAC CATH / ANGIO PROCEDURE ??? FEMUR/KNEE SURG UNLISTED ??? HX OTHER SURGICAL HISTORY IMPLANTABLE CARDIAC DEVICE: 1. No documented history of pacemaker placement PAST RADIATION HISTORY: 1. The patient and his family report that he received treatment for lung cancer at [facility] . They report that he receive 33 fractions at that time. 2. The patient and his family also report that more recently in 2021 (around July) the patient received 3 fractions of stereotactic radiation therapy to a single site in the lung. 3. Cardiac brachytherapy December 28, 2021 at [facility] with Dr. Early HRT: 1. Not applicable FAMILY HISTORY: Family History Problem Relation Name Age of Onset ??? Heart Problems Mother SOCIAL HISTORY: The patient lives in [facility]. He is and his 's name is Michelle. The patient is a former smoker RISK FACTORS: 1. Family history of heart problems SMOKING CESSATION: 1. Not applicable, the patient does not smoke PHYSCIAL EXAMINATION: General:This is a well-developed, well-nourished, very pleasant man Vital Signs: BP 128/66 Pulse 68 Temp 98.1 ??F (36.7 ??C) (Oral) Resp 16 Ht 1.676 m (5' 6 ) Wt 72.1 kg (159 lb) SpO2 99% BMI 25.66 kg/m?? HEAD&NECK: No neck adenopathy. PULMONARY: CTAB CARDIAC: RRR, no murmurs ABDOMEN: Soft, non-tender, non-distended LYMPH NODE EXAMINATION: No lymphadenopathy supraclavicular region EXTREMITIES: No clubbing, cyanosis or edema MUSCULOSKELETAL: Normal range of motion and strength INTEGUMENT: No rashes or ulcerations PSYCHIATRIC: Normal insight and judgement NEUROLOGICAL: Nonfocal LABORATORY VALUES: Lab Results Component Value Date WBC 8.19 12/28/2021 HGB 14.0 12/28/2021 HCT 44.8 12/28/2021 MCV 90.9 12/28/2021 PLT 193 12/28/2021 TEST: 1. Not applicable ASSESSMENT: Mr. Noriega is a very pleasant 76-year-old gentleman with a past medical history significant for in stent restenosis of the circumflex artery. He is a candidate for cardiac brachytherapy. PLAN: 1. NOVOSTE cardiac brachytherapy 2. The patient will follow-up with his rn unit manager as scheduled CHEMOTHERAPY: 1. Not applicable CONSENT TO TREAT 1. Consent for treatment was obtained by the cardiology service prior to treatment with cardiac brachytherapy. Thank you for allowing me to participate in the care of this patient. 45 minutes was spent reviewing the patient's case, coordinating care with other practitioners, and in consultation with the patient. Becca Dupont MD documented in this encounter H&P Notes * Tiffani Rocha NP - 12/28/2021 12:13 PM EST History and Physical Heart and Vascular Interventional Cardiology Service Line Chief Complaint: Chest pain Primary Burlesque Dancer: Dr. TADEO Celaya Primary Care Provider: Peg Delgado MD HPI: Carlo Noriega is a 76 y.o. male with a PMH which includes CAD with prior PCI, hypertension, dyslipidemia and PAD with claudication, presents for planned coronary angiogram with brachytherapy with Dr. Brandan Early today. Mr. Noriega reports that in early December, he developed chest pain while raking leaves. He describes the pain as pressure, non-radiating and causing him to feel a little short of breath. He has what he describes as single vessel CAD with several PCI to LCx and recurrent ISR. Of note, he had a recurrence of lung cancer and had additional radiation treatments that he finished at the beginning of September 2021. Other than sinus drainage, Mr. Moore denies recent acute illness. Most recent cardiac testing (some testing found in Media): Most recent cardiac catheterization: From Dr. Gaffney to [facility]: Non-dom circ with recurrent ISR s/p several SOFY. Last stent was 07/28 with 2.5 stent post dilated high inflation 3 mm balloon. Class III AP despite GMDT. Echocardiogram 06/2019: EF 55%, Grade 1 diastolic dysfunction and mild MR and TR. Clinical Frailty Scale: 3 Past Medical History: Diagnosis Date ??? Asthma Past Surgical History: Procedure Laterality Date ??? CARDIAC CATH / ANGIO PROCEDURE ??? FEMUR/KNEE SURG UNLISTED ??? HX OTHER SURGICAL HISTORY Medications Prior to Admission Medication Sig Dispense Refill Last Dose ??? aspirin 81 mg Tablet, Delayed Release (E.C.) Take 81 mg by mouth daily. 12/27/2021 ??? atorvastatin (LIPITOR) 80 mg Tablet Take by mouth nightly at bedtime. 12/27/2021 ??? cilostazoL (PLETAL) 100 mg tablet Take 1 Tablet (100 mg) by mouth 2 times daily. 60 Tablet 5 12/27/2021 at 1900 ??? cilostazoL (PLETAL) 100 mg tablet Take 1 Tablet (100 mg) by mouth 2 times daily. 60 Tablet 5 ??? clopidogreL (PLAVIX) 75 mg tablet TAKE 1 TABLET BY MOUTH ONCE DAILY FOR ANTIPLATELET 12/27/2021 ??? diltiazem (CARDIZEM CD) 120 mg capsule Take 1 Capsule (120 mg) by mouth daily for 13 days 13 Capsule 0 ??? diltiazem (DILACOR XR) 120 mg XR capsule Take 1 Capsule (120 mg) by mouth daily. 13 Capsule 0 ??? finasteride (PROSCAR) 5 mg tablet Take by mouth daily. 12/27/2021 at 1930 ??? furosemide (LASIX) 20 mg tablet Take by mouth daily. 12/26/2021 ??? L.acid/L.casei/B.bif/B.karely/FOS (PROBIOTIC BLEND PO) Take by mouth. ??? metoprolol succinate (TOPROL) 25 mg XL tablet Take by mouth daily. ??? Ranolazine 1,000 mg Tablet Sustained Release 12 hr Take by mouth 2 times daily. ??? sirolimus (RAPAMUNE) 1 mg Tablet Take 3 Tablets (3 mg) by mouth daily. 39 Tablet 0 ??? sirolimus (Rapamune) 1 mg Tablet Take 3 Tablets (3 mg) by mouth daily for 13 days. 39 Tablet 0 ??? spironolactone (ALDACTONE) 25 mg tablet TAKE 1 TABLET BY MOUTH ONCE DAILY FOR FLUID 12/27/2021 ??? Xarelto 2.5 mg Tablet Take by mouth 2 times daily. 12/26/2021 at 0700 No Known Allergies Social History Tobacco Use ??? Smoking status: Former, Quit 2014 Types: Cigarettes ??? Smokeless tobacco: Not on file Substance Use Topics ??? Alcohol use: Yes Family History Problem Relation Name Age of Onset ??? Heart Problems Mother Review of Systems Positive findings as outlined in HPI. Otherwise, All others negative. Objective Data: Ht 5' 6 (1.676 m) Wt 159 lb (72.1 kg) BMI 25.66 kg/m?? Wt Readings from Last 3 Encounters: 12/28/21 159 lb (72.1 kg) Recent Weights: 12/28/21 1200 Weight: 159 lb (72.1 kg) Vitals Reviewed, see nursing chart. General appearance Very pleasant, well developed, male, alert, awake, oriented x3. No distress. Neuro Gossly normal. HEENT Normocephalic, atraumatic. EOM's intact, sclera anicteric. Neck Soft, no JVD or carotid bruit. Lung Clear to auscultation A&P Heart Regular rate and rhythm. Without obvious M/R/G. Abdomen Soft, non-tender. Bowel sounds active. Musculoskeletal No gross abnormalities. Pulses Distal pulses intact 2+ DP/PT. Skin Skin color, texture, turgor normal. No rashes or lesions. Data Review ECG: Sinus 67 12/28/21 labs: Na 139, K+ 4.5, sCr 1.01 and glucose 97. H&H: 14.0/44.8 and platelets 193. LP: TC 125, TG 104, LDL 67 and HDL 37. Assessment: 1. Chest pain -Exertional -Ranexa 2. CAD -Specifics not available to me. Dr. Gaffney has spoken with Dr. Early. -Documeted multiple PCI to Cx. -Plavix, aspirin and Toprol. 3. Hypertension -Appears well controlled. -Toprol and Aldactone 4. Dyslipidemia -LP 12/27/2021: TC 125, TG 104, LDL 67 and HDL 37. -Crestor 5. PAD/Claudication -Reports LE stenting 20 + years ago with no issues since. 6. Hyperkalemia -K+ 5.2 on 12/07/2021 blood work. -Repeat K+ today is 4.5. 7. Lung cancer -Initilly diagnosed 2013. Took chemo and radiation. -Recurrence with radiation taken this year. 8. Reported atrial fibrillation -Reported by Dr. Gaffney that patient has chronic atrial fib. Patient and family not aware of thisdiagnosis. -Sinus rhythm on today's EKG and on September 2021 EKG. -Taking Eliquis 2.5 mg BID Plan: 1. Coronary angiography and planned brachytherapy with Dr. Early today. Furher input pending those results. 2. Patient currently on triple therapy (aspirin, Xarelto and Plavix). Defer post procedure plan forcontinued triple therapy to Dr. Early. Total time spent on this encounter was >30 minutes including time spent with the patient, reviewing data, completing medical records, and communication with the patient. Signed: Tiffani Rocha APRN Interventional Cardiology [phone] 12/28/2021 12:29 PM [facility] Cosigned by Brandan Early MD at 12/29/2021 6:25 AM EST documented in this encounter Miscellaneous Notes * Interdisciplinary - Liz Delgado RN - 12/28/2021 8:34 PM EST Patient discharged to home, per wheelchair, with family / friend. All personal belongings sent with patient. Discharge instructions reviewed with patient / family per Gary Verbalized understanding. Copy given to patient / family. Signed copy placed in medical record. * Interdisciplinary - Liz Delgado RN - 12/28/2021 6:53 PM EST Patient ambulated to bathroom. Tolerated well. * Plan of Care - Soco Adan - 12/28/2021 4:03 PM EST PCI / PPCI Education was provided to the patient. Please see Patient Education and/or below for more details. Information provided/reviewed. D: Cardiac Rehab Consult received for post PCI/ PPCI Education A: Patient and/or family instructed on home activity and given walking program for increasing activity. Patient and/or family received heart-healthy nutrition and eating information and/or counseling . Smoking Cessation information discussed and written information provided. Patient was counseled regarding benefits of participation in early outpatient cardiac rehabilitation (CR) / secondary prevention( Lipid Profile, A1C, BMI, Vital Signs). Patient was informed of choices for local programs in their area that are certified by the [place] [employer] Pulmonary [employer](AACVPR) and they are provided with contact information for these programs. R: The patient has chosen to attend [place], [place] The referral was sent to this facility. Patient self reported Lifestyle Modification Goal: Goals None Diabetes education discussed and provided: No No results found for: HGBA1C, TGLYCO, GLYCOHEM * Interdisciplinary - Jet Dowling RN - 12/28/2021 3:48 PM EST Patient admitted to [facility] from [facility]. Nursing assessment per protocol. Report received from Roger KAUR. 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 REFERRING PHYSICIAN: Dr. Carl Gaffney, [facility] in [facility]. 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 POSTOPERATIVE DIAGNOSIS: Successful percutaneous transluminal coronary angioplasty, vascular brachytherapy of circumflex coronary artery in-stent restenosis. COMPLICATIONS: None. DESCRIPTION OF PROCEDURE: Following Xylocaine local anesthesia in the right femoral region, a 7-Congolese sheath was inserted in the right femoral artery. Selective left coronary angiography was performed with a 7-Congolese Kaitlin left 4 curved short tipped guiding catheter, after which time a [employer] flex wire was passed down the length of the circumflex and a 3.0 x 20 mm long NC balloon catheter was inflated to 14 atmospheres in the area of stenosis. Following repetitive inflations, a vascular brachytherapy was administered by Dr. Dupont of the radiation oncology service. All catheters were then removed. Hemostasis was achieved in the right femoral access with a single 6-Congolese Angio-Seal.There were no complications of the procedure. ANGIOGRAPHIC FINDINGS: 1. Predilatation angiography demonstrates 90% high-grade in-stent restenosis. 2. Postdilatation angiography demonstrates 0% residual blockage. 3. No complication of the procedure. SAGRARIO/BEBETO * Interdisciplinary - Ruth Ivan RN - 12/28/2021 12:11 PM EST Patient admitted to [facility] from home Nursing assessment per protocol. Bilateral groin clipped per protocol by Maxime instructed on [facility] bed tracking board. * Interdisciplinary - Emily Johns RN - 12/27/2021 12:38 PM EST Pre-procedure phone call by this RN-spoke with patient. Patient verbalized correct understanding ofpre-procedure instructions. No further questions at this time. documented in this encounter Plan of Treatment Scheduled Orders Name Type Priority Associated Diagnoses Orde r Schedule OP CARDIAC REHAB PHASE II Card Rehab Routine One Time for 1 Occurrences starting 12/28/2021 until 12/28/2021 OP CARDIAC REHAB PHASE II Card Rehab Routine One Time for 1 Occurrences starting 12/28/2021 until 12/28/2021 documented as of this encounter Procedures Procedure Name Priority Date/Time Associated Diagnosis Comments ECG Routine 12/28/2021 3:47 PM EST CORONARY BRACHYTHERAPY Routine 3:34 PM EST Coronary stent restenosis, sequela INTERVENTION - CORONARY Routine 12/28/2021 3:34 PM EST Coronary stent restenosis, sequela SELECTIVE CORONARY ANGIOGRAPHY Routine 12/28/2021 3:34 PM EST Coronary stent restenosis, sequela POC ACT LOW RANGE Routine 12/28/2021 3:0 7 PM EST POC ACT LOW RANGE Routine 12/28/2021 2:4 8 PM EST ECG STAT 12/28/2021 12:44 PM EST CBC (COMPLETE BLOOD COUNT) Routine 12/28/2021 12:30 PM EST LIPID PROFILE Routine 12/28/2021 12:30 PM EST BASIC METABOLIC PANEL (BMP=EP1) Routine 12/28/2021 12:30 PM EST documented in this encounter Results * ECG (12/28/2021 3:47 PM EST) 12/28/2021 3:47 PM EST Narrative [facility] EXTERNAL [facility] - 12/28/2021 3:49 PM EST ? [facility] ? Test Date: ?2021-12-28 15:47:49 Pat Name: ? CARLO CHANDNI ?Department: ?? CVRU ? Room: ? CTEMP Gender: ? Male ? Solderer Dipper: ?? TC : ?1945 ? Requested By: EMILYJESS LEROY C. Order Number: [id number] ?Reading MD: ?? Cruzito Chu MD ? Measurements Intervals ?Rigby ? Rate: ? 66 ? P: ?21 WI: ? 172 ?QRS: ?55 QRSD: ? 122 ?T: ?62 QT: ? 408 ? QTc: ?428 ? Interpretive Statements Sinus rhythm Nonspecific intraventricular conduction delay Electronically Signed On 12-28-2021 15:49:00 EST by Cruzito Chu MD Procedure Note Cruzito Chu MD - 12/28/2021 [facility] Test Date: 2021-12-28 15:47:49 Pat Name: CARLO NORIEGA Department: [facility] Room: [facility] Gender: Male Solderer Dipper: TC : 1945 Requested By: EMILY Watt Order Number: [id number] Inez MD: Cruzito Chu MD Measurements Intervals Rigby Rate: 66 P: 21 WI: 172 QRS: 55 QRSD: 122 T: 62 QT: 408 QTc: 428 Interpretive Statements Sinus rhythm Nonspecific intraventricular conduction delay Electronically Signed On 12-28-2021 15:49:00 EST by Cruzito Chu MD us Emily Leroy PERFORMANCE IMPROVEMENT DIRECTOR ECG ORDERABLES Final Result [facility] EXTERNAL [facility] [address] [place] [address] * SELECTIVE CORONARY ANGIOGRAPHY, INTERVENTION - CORONARY, CORONARY BRACHYTHERAPY (12/28/2021 3:34 PMEST) Narrative Brandan Early MD - 12/29/2021 6:28 AM EST ? [facility] ?[address] ?[place], [place] ??[address] PATIENT: ?? CARLO NORIEGA ? ADMIT DATE:12/28/2021 ? ACCT: ?? 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 REFERRING PHYSICIAN: ??Dr. Carl Gaffney, [facility] in [facility]. 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 POSTOPERATIVE DIAGNOSIS: ??Successful percutaneous transluminal coronary angioplasty, vascular brachytherapy of circumflex coronary artery in-stent restenosis. COMPLICATIONS: ??None. DESCRIPTION OF PROCEDURE: ??Following Xylocaine local anesthesia in the right femoral region, a 7-Congolese sheath was inserted in the right femoral artery. ??Selective left coronary angiography was performed with a 7-Congolese Kaitlin left 4 curved short tipped guiding catheter, after which time a Prowater flex wire was passed down the length of the circumflex and a 3.0 x 20 mm long NC balloon catheter was inflated to 14 atmospheres in the area of stenosis. ??Following repetitive inflations, a vascular brachytherapy was administered by Dr. Dupont of the radiation oncology service. ??All catheters were then removed. ??Hemostasis was achieved in the right femoral access with a single 6-Congolese Angio-Seal. ??There were no complications of the procedure. ANGIOGRAPHIC FINDINGS: ?? 1. Predilatation angiography demonstrates 90% high-grade in-stent restenosis. 2. Postdilatation angiography demonstrates 0% residual blockage. 3. No complication of the procedure. D: ??12/28/2021 15:27:19 T: ??12/28/2021 15:39:00 ??NIGELK/BEBETO Job #: ??[id number] Coronary Findings Diagnostic Dominance: Right Left Circumflex: Mid Cx lesion is 90% stenosed. Intervention Mid Cx lesion: Angioplasty: The lesion was treated with angioplasty independent of stent deployment. The balloon used was a BLLN NC QUANTUM 3X20.. Initial inflation pressure: 12 nery. 2nd inflation pressure: 14 nery. Supplies Used: BLLN NC QUANTUM 3X20. Post-Intervention Lesion Assessment: Post-intervention YEVGENIY flow is 3. There is a 0% residual stenosis post intervention. us Brandan Early MD CV CARDIAC CATH PROCEDURES Final Result * POC ACT LOW RANGE (12/28/2021 3:07 PM EST) [facility] POC ACTLR 273 seconds [facility] FLYING II INSTRUCTOR AL LAB Comment: ACT TARGET RANGES : Line pull: <=180 seconds Interventional cardiology with GP IIb/IIIa inhibitors: 220-300 seconds Interventional cardiology without GP IIb/IIIa inhibitors: >250 seconds Peripheral and Neuroradiology: 250-300 seconds Afib ablation: MD gonsalez Ablation (other than Afib): MD gonsalez Normal range generated from normal volunteer donors: 113-149 seconds Normal range generated from hospitalized patients not receiving heparin: 89-169 seconds Target ranges are suggested ranges only. ??Suggested ranges are overridden by specific physician order. Whole Blood 12/28/2021 3:07 PM EST 12/28/2021 3:13 PM EST us Brandan Early MD POINT OF CARE TEST ORDERABL ES Final Result [facility] EXTERNAL [facility] [address] * POC ACT LOW RANGE (12/28/2021 2:48 PM EST) [facility] POC ACTLR 375 seconds [facility] FLYING II INSTRUCTOR AL LAB Comment: ACT TARGET RANGES : Line pull: <=180 seconds Interventional cardiology with GP IIb/IIIa inhibitors: 220-300 seconds Interventional cardiology without GP IIb/IIIa inhibitors: >250 seconds Peripheral and Neuroradiology: 250-300 seconds Afib ablation: MD gonsalez Ablation (other than Afib): MD gonsalze Normal range generated from normal volunteer donors: 113-149 seconds Normal range generated from hospitalized patients not receiving heparin: 89-169 seconds Target ranges are suggested ranges only. ??Suggested ranges are overridden by specific physician order. Whole Blood 12/28/2021 2:48 PM EST 12/28/2021 3:00 PM EST us Brandan Lang Early MD POINT OF CARE TEST ORDERABL ES Final Result [facility] EXTERNAL [facility] [address] [place] [address] * ECG (12/28/2021 12:44 PM EST) 12/28/2021 12:4 4 PM EST Narrative [facility] EX[facility]NAL [facility] - 12/28/2021 3:07 PM EST ? [facility] ? Test Date: ?2021-12-28 12:44:10 Pat Name: ? CARLO CHANDNI ?Department: ?? CVRU ? Room: ? 3RD GRADE TEACHER POOL Gender: ? Male ? Solderer Dipper: ?? DF : ?1945 ? Requested By: TIFFANI Wills Order Number: [id number] ?Reading MD: ?? Sandeep Hanley MD ? Measurements Intervals ?Rigby ? Rate: ? 67 ? P: ?13 WI: ? 169 ?QRS: ?30 QRSD: ? 100 ?T: ?66 QT: ? 408 ? QTc: ?431 ? Interpretive Statements Sinus rhythm Low voltage, precordial leads No previous tracing for comparison. Electronically Signed On 12-28-2021 15:07:21 EST by Sandeep Hanley MD Procedure Note Sandeep Hanley MD - 12/28/2021 [facility] Test Date: 2021-12-28 12:44:10 Pat Name: CARLO NORIEGA Department: [facility] Room: 3RD GRADE TEACHER POOL Gender: Male Solderer Dipper: DF : 1945 Requested By: TIFFANI JACKSON. Order Number: [id number] Reading MD: Sandeep Hanley MD Measurements Intervals Rigby Rate: 67 P: 13 WI: 169 QRS: 30 QRSD: 100 T: 66 QT: 408 QTc: 431 Interpretive Statements Sinus rhythm Low voltage, precordial leads No previous tracing for comparison. Electronically Signed On 12-28-2021 15:07:21 EST by Sandeep Hanley MD us Tiffani Rocha NP ECG ORDERABLES Final R esult [facility] EXTERNAL [facility] [address] * (ABNORMAL) LIPID PROFILE (12/28/2021 12:30 PM EST) Chol/HDL Ratio 3.4 0 - 5 [facility] XTERNAL LAB Cholesterol 125 125 - 199 mg/dL [facility] EXTERNAL [facility] Comment: TOTAL CHOLESTEROL INTERPRETATION: Less than 200 mg/dL Desireable 200-239 mg/dL Borderline Greater or Equal to 240 mg/dL High LDL Calculated 67 0 - 100 mg/dL [facility] EX[facility] Comment: LDL CHOLESTEROL INTERPRETATION: ?? Less than 100 mg/dL Optimal 100-129 mg/dL Near optimal/above optimal 130-159 mg/dL Borderline High 160-189 mg/dL High Greater or Equal to 190 mg/dL Very High HDL 37(L) 40 - 180 mg/dL [facility] EX[facility] Comment: HDL CHOLESTEROL INTERPRETATION: ?? Less than 40 mg/dL Low Greater than 60 mg/dL Desirable Triglycerides 104 0 - 149 mg/dL [facility] Comment: TOTAL TRIGLYCERIDE INTERPRETATION: ?? Less than 150 mg/dL Normal 150-199 mg/dL Borderline HIgh 200-499 mg/dL High Greater or Equal to 500 mg/dL Very High Serum 12/28/2021 12:3 0 PM EST 12/28/2021 12:35 PM EST us Brandan Lang Early MD CHEMISTRY ORDERABLES Final Result [facility] EXTERNAL LAB [address] [place] [address], [facility] * BASIC METABOLIC PANEL (BMP=EP1) (12/28/2021 12:30 PM EST) Sodium 139 135 - 146 mmol/L [facility] EX[facility]NAL [facility] Potassium 4.5 3.5 - 5.1 mmol/L [facility] Chloride 107 98 - 110 mmol/L [facility] CO2 23 22 - 29 mmol/L [facility] Comment: Based on [facility] recommendations, this result is no longer considered a critical value requiring lab to notify caregiver. Anion Gap 9 5 - 13 mmol/L [facility] Comment:Anion gap calculatio n does not include potassium (K+) value. BUN 10 7 - 25 mg/dL [facility] EX[facility] Comment: Based on [facility] recommendations, this result is no longer considered a critical value requiring lab to notify caregiver. Creatinine 1.01 0.50 - 1.30 mg/dL [facility] Glucose 97 71 - 99 mg/dL [facility] eGFR CKD-EPI 2020 78 See Note [facility] Comment: eGFR calculated with 2020 CKD-EPI equation using creatinine, patient's age and gender. Other factors, especially muscle mass, may affect accuracy and need to be considered. Patient values should be interpreted as a trend. The reference interval is >60 mL/min/1.73m2. Calcium 9.6 8.8 - 10.9 mg/dL [facility] BUN/Creatinine Ratio 10 [facility] Serum 12/28/2021 12:3 0 PM EST 12/28/2021 12:35 PM EST us Brandanlaura Early MD CHEMISTRY ORDERABLES Final Result Performing Organization Address [facility] Co de Phone Number [facility] EXTERNAL [facility] [address] * CBC (COMPLETE BLOOD COUNT) (12/28/2021 12:30 PM EST) WBC 8.19 3.80 - 10.80 10*3/uL [facility] RBC 4.93 4.20 - 5.80 10*6/uL [facility] EX[facility] Hemoglobin 14.0 13.2 - 17.1 g/dL [facility] Hematocrit Blood 44.8 40.0 - 51.0 % [facility] MCV 90.9 80.0 - 100.0 fL [facility] MCH 28.4 27.0 - 33.0 pg [facility] EXTERNAL [facility] MCHC 31.3 30.0 - 36.0 g/dL [facility] RDW 14.0 11.0 - 15.0 % [facility] Platelets 193 140 - 400 10*3/uL [facility] MPV 10.0 9.0 - 13.0 fL [facility] Whole Blood 12/28/2021 12:3 0 PM EST 12/28/2021 12:35 PM EST us Brandanlaura Early MD HEMATOLOGY ORDERABLES Final Result Performing Organization Address [facility] de Phone Number [facility] EXTER[facility] [address] documented in this encounter Visit Diagnoses Diagnosis Coronary stent restenosis, sequela- Primary CAD S/P percutaneous coronary angioplasty Coronary atherosclerosis of [place] coronary artery Coronary stent restenosis, sequela documented in this encounter Admitting Diagnoses Diagnosis Coronary stent restenosis, sequela documented in this encounter Administered Medications Inactive Administered Medications - up to 3 most recent administrations Medication Order MAR Action Action Date Dose Rate Site acetaminophen (TYLENOL) tablet 325-650 mg 325-650 mg, Oral, EVERY 4 HOURS PRN, Mild Pain Intensity (1-3), Starting on Mon12/28/21 at 1528, Do not exceed 4 grams of acetaminophen in 24 hours from all sources alum-mag hydroxide-simeth (MINTOX MAX) 400-400-40 mg/5 mL suspension 15 mL 15 mL, Oral, EVERY 4 HOURS PRN, Heartburn, Starting on Mon12/28/21 at 1528, Shake well aspirin chewable tablet 324 mg 324 mg, Oral, PRE-PROCEDURE, Starting on Mon12/28/21 at 1200, For 1 dose, Do not give for right heart cath only Given 12/28/2021 12:58 PM EST 324 mg atropine injection 0.5 mg 0.5 mg, Intravenous, PRN, Other (enter comment), Starting on Mon12/28/21 at 1528, For Symptomatic HR less than 50/minute. May repeat every 2 minutes, two times. Call MD. clopidogreL (PLAVIX) tablet 600 mg 600 mg, Oral, PRE-PROCEDURE, Starting on Mon12/28/21 at 1200, For 1 dose, Preprocedure (CV) Given 12/28/2021 12:59 PM EST 600 mg dextrose 50 % injection 25-50 mL 25-50 mL, Intravenous, PRN, Low blood sugar, Low blood sugar and unable to take PO, Starting on Mon12/28/21 at 1200, Follow BG scale: BG 70-100 mg/dL & symptomatic = 25 ml dose. BG 50-69 mg/dL = 25 ml dose. BG less than 50 mg/dL = 50 ml dose. Document hypoglycemic event on hypoglycemic doc flow sheet. REPEAT blood glucose 15 minutes after treatment. REPEAT treatment if blood glucose still less than 70 mg/dL., Notify prescriber immediately. When BG level rises above 70 mg/dL after any treatment, continue to monitor patients BG level as ordered by prescriber. diltiazem (TIAZAC) SR capsule 120 mg 120 mg, Oral, ONCE, On Mon12/28/21 at 1745, For 1 dose, Do not crush Given 12/28/2021 5:33 PM EST 120 mg hydrALAZINE (APRESOLINE) injection 10 mg 10 mg, Intravenous, ONCE PRN, High Blood Pressure, Starting on Mon12/28/21 at 1528, For 1 dose, For line pull If HR less than or equal to 70, for SBP greater than 180, or DBP greater than 115. labetaloL (NORMODYNE;TRANDATE) injection 10 mg 10 mg, Intravenous, PRN, High Blood Pressure, Starting on Mon12/28/21 at 1528, For line pull If HR GREATER than or equal to 70, for SBP between 160-170 or DBP between 100-115/ May repeat with 20 mg every 10 Minutes times 2 doses. If still greater, contact MD. ondansetron (PF) (ZOFRAN) injection 4 mg 4 mg, Intravenous, EVERY 8 HOURS PRN, Nausea, Vomiting, Starting on Mon12/28/21 at 1528 oxyCODONE-acetaminophen (PERCOCET) 5-325 mg per tablet 1-2 Tablet 1-2 Tablet, Oral, EVERY 4 HOURS PRN, Moderate Pain Intensity (4-6), Starting on Mon12/28/21 at 1528, Maximum of 4 grams acetaminophen per 24 hours Phenylephrine HCl in NS (KARYN-SYNEPHRINE) 1 mg/10 mL (100 mcg/mL) injection 50-100 mcg 50-100 mcg, Intravenous, ONCE PRN, vasovagal reaction, Starting on Mon12/28/21 at 1528, For 1 dose, For systolic blood pressure less than 80 mmHg May repeat in 2 minutes X 1 dose and notify Physician sirolimus (RAPAMUNE) tablet 10 mg 10 mg, Oral, ONCE, On Mon12/28/21 at 1745, For 1 dose Given 12/28/2021 5:31 PM EST 10 mg sodium chloride 0.9% IV solution 125 mL/hr, Intravenous, PRE-OP CONTINUOUS, Starting on Mon12/28/21 at 1300 New Bag 12/28/2021 1:00 PM EST 125 mL/hr 125 mL/hr sodium chloride 0.9% IV solution 100 mL/hr, Intravenous, CONTINUOUS, Starting on Mon12/28/21 at 1645, For 6 hours sodium chloride 0.9% IV solution 1,000 mL, Intravenous, CONTINUOUS PRN, Vasovagal reaction, Starting on Mon12/28/21 at 1528 documented in this encounter Active and Recently Administered Medications Times are shown in EST. Scheduled Medication Order 12/26/2021 12/27/2021 12/28/2021 aspirin chewable tablet 324 mg (COMPLETED) 324 mg, Oral, PRE-PROCEDURE, Starting on Mon12/28/21 at 1200, For 1 dose, Do not give for right heart cath only 1258 (Given - Provid er: Ruth Ivan RN) clopidogreL (PLAVIX) tablet 600 mg (COMPLETED) 600 mg, Oral, PRE-PROCEDURE, Starting on Mon12/28/21 at 1200, For 1 dose, Preprocedure (CV) 1259 (Given - Provid er: Ruth Ivan RN) diltiazem (TIAZAC) SR capsule 120 mg (COMPLETED) 120 mg, Oral, ONCE, On Mon12/28/21 at 1745, For 1 dose, Do not crush 1733 (Given - Provid er: Jet Dowling RN) sirolimus (RAPAMUNE) tablet 10 mg (COMPLETED) 10 mg, Oral, ONCE, On Mon12/28/21 at 1745, For 1 dose 1731 (Given - Provid er: Jet Dowling RN) Continuous Medication Order 12/26/2021 12/27/2021 12/28/2021 sodium chloride 0.9% IV solution (CANCELED) 125 mL/hr, Intravenous, PRE-OP CONTINUOUS, Starting on Mon12/28/21 at 1300 1300 (New Bag - Prov ider: Ruth Ivan RN) sodium chloride 0.9% IV solution 100 mL/hr, Intravenous, CONTINUOUS, Starting on Mon12/28/21 at 1645, For 6 hours 1645 (Due) PRN Medication Order 12/26/2021 12/27/2021 12/28/2021 acetaminophen (TYLENOL) tablet 325-650 mg 325-650 mg, Oral, EVERY 4 HOURS PRN, Mild Pain Intensity (1-3), Starting on Mon12/28/21 at 1528, Do not exceed 4 grams of acetaminophen in 24 hours from all sources alum-mag hydroxide-simeth (MINTOX MAX) 400-400-40 mg/5 mL suspension 15 mL 15 mL, Oral, EVERY 4 HOURS PRN, Heartburn, Starting on Mon12/28/21 at 1528, Shake well atropine injection 0.5 mg 0.5 mg, Intravenous, PRN, Other (enter comment), Starting on Mon12/28/21 at 1528, For Symptomatic HR less than 50/minute. May repeat every 2 minutes, two times. Call . dextrose 50 % injection 25-50 mL 25-50 mL, Intravenous, PRN, Low blood sugar, Low blood sugar and unable to take PO, Starting on Mon12/28/21 at 1200, Follow BG scale: BG 70-100 mg/dL & symptomatic = 25 ml dose. BG 50-69 mg/dL = 25 ml dose. BG less than 50 mg/dL = 50 ml dose. Document hypoglycemic event on hypoglycemic doc flow sheet. REPEAT blood glucose 15 minutes after treatment. REPEAT treatment if blood glucose still less than 70 mg/dL., Notify prescriber immediately. When BG level rises above 70 mg/dL after any treatment, continue to monitor patients BG level as ordered by prescriber. fentanyl (Sublimaze) 50 mcg/mL injection (CANCELED) INTRA-OP PRN, Starting on Mon12/28/21 at 1421, Intra-op 1421 (Given - Provid er: Roger Bowman RN) heparin (porcine) injection (CANCELED) INTRA-OP PRN, Starting on Mon12/28/21 at 1439, Intra-op 1439 (Given - Provid er: Roger Bowman RN) hydrALAZINE (APRESOLINE) injection 10 mg 10 mg, Intravenous, ONCE PRN, High Blood Pressure, Starting on Mon12/28/21 at 1528, For 1 dose, For line pull If HR less than or equal to 70, for SBP greater than 180, or DBP greater than 115. iopamidoL (ISOVUE-370) 370 mg iodine /mL (76 %) injection (CANCELED) INTRA-OP PRN, Starting on Mon12/28/21 at 1524, Until Mon12/28/21 at 1538, Intra-op 1524 (Given - Provid er: Brandan Early MD) labetaloL (NORMODYNE;TRANDATE) injection 10 mg 10 mg, Intravenous, PRN, High Blood Pressure, Starting on Mon12/28/21 at 1528, For line pull If HR GREATER than or equal to 70, for SBP between 160-170 or DBP between 100-115/ May repeat with 20 mg every 10 Minutes times 2 doses. If still greater, contact MD. lidocaine 2 % injection (CANCELED) INTRA-OP PRN, Starting on Mon12/28/21 at 1433, Intra-op 1431 (Given - Provid er: Brandan Early MD) midazolam (Versed) 1 mg/mL injection (CANCELED) INTRA-OP PRN, Starting on Mon12/28/21 at 1421, Intra-op 1421 (Given - Provid er: Roger Bowman RN) niCARdipine in 0.9 % sod chlor (Cardene) 1 mg/10 mL injection (CANCELED) INTRA-OP PRN, Starting on Mon12/28/21 at 1451, Intra-op 1451 (Given - Provid er: Brandan Early MD) nitroglycerin (CANCELED) INTRA-OP PRN, Starting on Mon12/28/21 at 1442, Intra-op 1442 (Given - Provid er: Brandan Early MD)1443 (Given - Provider: Brandan Early MD) ondansetron (PF) (ZOFRAN) injection 4 mg 4 mg, Intravenous, EVERY 8 HOURS PRN, Nausea, Vomiting, Starting on Mon12/28/21 at 1528 oxyCODONE-acetaminophen (PERCOCET) 5-325 mg per tablet 1-2 Tablet 1-2 Tablet, Oral, EVERY 4 HOURS PRN, Moderate Pain Intensity (4-6), Starting on Mon12/28/21 at 1528, Maximum of 4 grams acetaminophen per 24 hours Phenylephrine HCl in NS (KARYN-SYNEPHRINE) 1 mg/10 mL (100 mcg/mL) injection 50-100 mcg 50-100 mcg, Intravenous, ONCE PRN, vasovagal reaction, Starting on Mon12/28/21 at 1528, For 1 dose, For systolic blood pressure less than 80 mmHg May repeat in 2 minutes X 1 dose and notify Physician protamine injection (CANCELED) INTRA-OP PRN, Starting on Mon12/28/21 at 1518, Intra-op 1518 (Given - Provid er: Roger Bowman RN) sodium chloride 0.9% IV solution 1,000 mL, Intravenous, CONTINUOUS PRN, Vasovagal reaction, Starting on Mon12/28/21 at 1528 Tirofiban (Aggrastat) bolus injection (CANCELED) INTRA-OP PRN, Starting on Mon12/28/21 at 1440, Intra-op 1440 (Given - Provid er: Roger Bowman RN) documented in this encounter Care Teams [employer] Specialist Relationship Specialty Start Date End Date Peg Delgado MD [address] [place] [address] PCP - General Family Medicine 12/28/21 Brandan Early MD [address] [place] [address] Interventional Cardiology 12/23/21 documented as of this encounter
--- OUTSIDE RECORDS SUMMARY | 2024-01-11 09:08 | XMS_ITS | Encounter Summary ---
Author Organization [facility] Address [address] [place] [address] Care Team Providers Care Purification Supervisor Name Role Phone Brandan Early MD Unavailable Peg Delgado MD Primary Care Provider Ramiro granados Reason for Visit * Reason Onset Date Comments Stool Color Change 01/04/2022 Carlo stated h is stools have been black and heavy since procedure. Encounter Details Date Type Department Care Team (Late st Contact Info) Description 01/04/2022 Telephone [facility] Physicians - Heart & Vascular, [facility] [address] [place] [phone] Brandan Early MD [address] [place] [address] [address] [place], [place] [id number] Stool Color Change (Carlo stated his stools have been black and heavy since procedure./) Social History Tobacco Use Types Packs/Day Years [...] encounter Miscellaneous Notes * Telephone Encounter - Anais Cisneros - 01/05/2022 10:20 AM EST He saw his pcp yesterday and said the stool color change was from the pepto bismol he was taking. He says thank you for your time * Telephone Encounter - Tricia Holland RN - 01/04/2022 2:39 PM EST Spoke with patient. He had Brachy procedure done 1 week ago. He states that he first had diarrhea on Monday after procedure. He took Pepto- Bismol doses and symptoms temporarily resolved but have returned in the last 24- 48 hours with frequent, loose, dark colored stool. Patient describes BM as black . Did verify with patient that stool was dark prior to Pepto doses, but is more black in color after those doses. Also verified he only took 2 Pepto doses total, one Fri and one Sun Denies pain, denies fever. Had colonoscopy several months ago with no abnormal findings. Does not report foul smell to diarrhea. Patient states he has appt with PCP tomorrow, did advise he ask about stool occult blood testing. * Telephone Encounter - John Mcdaniel - 01/04/2022 8:31 AM EST Carlo is calling he had a cath procedure on12/28/21. Carlo stated his stools have been black and heavy since procedure. Carlo contacted his pcp who instructed Carlo to call Dr. Early office. Please call Carlo back to advise documented in this encounter Plan of Treatment Not on file documented as of this encounter Visit Diagnoses Not on filedocumented in this encounter Care Teams Purification Supervisor Relationship Specialty Start Date End Date Peg Delgado MD [address] [place] [address] PCP - General Family Medicine 12/28/21 Brandan Early MD [address] [address] Interventional Cardiology 12/23/21 documented as of this encounter
--- OUTSIDE RECORDS SUMMARY | 2024-01-11 09:08 | XMS_ITS | Encounter Summary ---
Author Organization [facility] Address [address] [place] [address] Care Team Providers Care Coloring Machine Operator Name Role Phone Leandro Seaman MD Unavailable [phone] Carl Tate DO Primary Care Provider [phone] Carl Gaffney MD Unavailable [phone] Encounter Details Date Type Department Care Team (Latest Contact Info) Description 01/08/2024 Travel Social History Tobacco Use Types Packs/Day Years [...] Description 01/15/2024 10:00 AM EST Ancillary Procedure [facility] Medicine Specialties [address] [place] [address] 01/15/2024 11:00 AM EST Consult [facility] [address] [place] [address] Ida Nayak PA [address] [place] [address] 06/19/2024 11:00 AM EDT Appointment [facility] Radiation [address] [id number] [place] [phone] Leandro Seaman MD [address] [facility] [address] [place] [phone] documented as of this encounter Visit Diagnoses Not on filedocumented in this encounter Additional Health Concerns Assessment Noted Time A fall risk assessment has been complete d for the patient 12/20/2023 10:03 AM EST A Body Mass Index follow-up plan has been documented for the patient 09/09/2023 9:05 PM EDT documented as of this encounter Care Teams Coloring Machine Operator Relationship Specialty Start Date End Date Carl Tate DO [address] [place] [address] PCP - General 04/17/23 Leandro Seaman MD [address] [place] [phone] Consulting Physician Radiation Oncology 07/30/21 Carl Gaffney MD [address] [place] [address] Referring Physician 05/12/23 documented as of this encounter
--- OUTSIDE RECORDS SUMMARY | 2024-01-11 09:08 | XMS_ITS | Encounter Summary ---
Author Organization [facility] Address [address] [place] [address] Care Team Providers Care Outpatient Physical Therapist Name Role Phone Leandro Seaman MD Unavailable [phone] Carl Tate DO Primary Care Provider Carl Gaffney MD Unavailable [phone] Reason for Referral * Consultation (Routine) - Authorized Specialty Diagnoses / Procedures Referred By Contac t Referred To Contact Pulmonary Disease / Pulmonology Diagnoses Chronic obstructive pulmonary disease with acute lower respiratory infection (CMS/HCC) Jeri Douglas APRN [address] [facility] [address] [place] [address] Phone: tel: fax: Ilir Carpenter MD [address] [place] [address] Phone: tel: fax: Referral ID Status Reason Start Date Expiration Date Visits Requested Visits Authorized [id number] Authorized Specialty Services Required 4 06/20/2025 1 1 Reason for Visit * Reason Comments Follow-up Encounter Details Date Type Department Care Team (Latest Contact Info) Description 12/20/2023 9:55 AM EST - 12/20/2023 11:59 PM EST Hospital Encounter [facility] Radiation [address] [facility] [id number] [place] [address] Leandro Seaman MD [address] [facility] [address] [place] [address] Chronic obstructive pulmonary disease with acute lower respiratory infection (CMS/HCC) (Primary Dx) Discharge Disposition: Still a Patient Social History Tobacco Use Types Packs/Day Years [...] AM EDT documented as of this encounter Last Filed [...] Mass Index 22.96 12/20/2023 9:59 AM EST documented in this encounter Medications at Time [...] Directed (Take on Monday, , and Monday). ranolazine (Ranexa) 1000 MG 12 hr tablet Take 1 tablet (1,000 mg) by mouth 2 (two) times a day. Do not crush, chew, or split. spironolactone (Aldactone) 25 MG tablet 1 tablet (25 mg). //Sat 05/19/2020 Stiolto Respimat 2.5-2.5 MCG/ACT aerosol solution inhaler Inhale 2 Inhalations 1 (one) time each day. 08/02/2023 Tiotropium [place] Monohydrate (Spiriva Respimat) 2.5 MCG/ACT inhaler Inhale 2 puffs 1 (one) time each day. documented as of this encounter Miscellaneous Notes * Addendum Note - Jeri Douglas APRN - 12/20/2023 11:00 AM ESTExavierounter addended by: Jeri Douglas APRN on: 12/21/2023 9:20 AM Actions taken: Clinical Note Signed * Addendum Note - Jeri Douglas APRN - 12/20/2023 11:00 AM ESTEncounter addended by: Jeri Douglas APRN on: 12/21/2023 9:24 AM Actions taken: Clinical Note Signed * Progress Notes - Jeri Douglas, GIFT SHOP ASSISTANT - 12/20/2023 11:00 AM EST [facility] RADIATION MEDICINE RADIATION ONCOLOGY GIFT SHOP ASSISTANT Follow Up NOTE Patient Name: Carlo Noriega Date of : 1945 78 y.o. 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 He was initially noted to have some mediastinal pleural thickening on a CT scan in April 2023 compared to his Jan 2023 scan. Imaging was repeated in July 2023 that again showed pleural thickening, both on the mediastinal and pleural aspect. Hewas seen by Thoracic surgery and Dr. Carpenter in August who both suggests careful and continued surveill ance as well as continued follow up with us, Radiation Medicine (Dr. Seaman). Treatment Diagnosis and Cancer Staging 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) Staging form: Lung, AJCC 8th Edition - Clinical stage from 08/11/2021: Stage IA2 (cT1b, cN0, cM0) - Unsigned Prior Radiation Therapy -LEFT Lung 60 Gy along with a stereotactic boost to the LEROY residual disease of 19.5 Gy in 3 additional fractions, completed in 10/2014 - LEROY Lun cGy in 3 fractions SBRT to LEROY Stage IA2 (cT1b, cN0, cM0) clinically diagnosed lung cancer completed 09/06/21 -Cardiac Brachytherapy NOVOSTE for stent restenosis completed 12/20[facility] INTERVAL HISTORY: Carlo Noriega reports generally doing well. No recent illness or hospitalization. No complaints related to RTX noted today in clinic. Does continue to have SOB with activity and intermittent dry cough. REVIEW OF SYSTEMS: A 10-point review of systems obtained and negative except as above. The patient has been counseled on tobacco cessation: Not Applicable (no longer smoking) KPS: 90 - Able to carry on normal activity; minor signs or symptoms of disease. CURRENT OUTPATIENT MEDICATIONS: Medications reviewed. ALLERGIES: No Known Allergies PHYSICAL EXAM: Visit Vitals BP 120/63 Pulse 73 Temp 36.5 ??C (97.7 ??F) SpO2 97% Patient appears comfortable, seated in NAD Vitals reviewed. Oriented X3, answers questions appropriately CN's II-XII appear grossly normal No obvious adenopathy in neck No back pain or other palpable pain No crackles, wheezes or respiratory distress No peripheral edema Strength/sensation of extremities appears normal, self IMAGING: Dr Seaman and I independently reviewed images and results. CT CHEST 12/20/2023: reviewed formal read is pending, no obvious disease noted. Addendum: CT CHEST 12/20/2023 IMPRESSION: No evidence of thoracic progression. Stable findings as above. 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 No suspicious metabolically active pleural or mediastinal mass. No suspicious mediastinal, hilar, or axillary adenopathy. Multiple non-FDG avid subcentimeter nodules in the right upper lobe, and right middle lobe, for example: * On series 4 image 109, there are 2 adjacent nodules which measure 7 mm and 6 mm. * The right middle lobe a 4 mm nodule is present on series 4 image 134, without significant FDG activity. Surgical changes compatible with recent CABG. Bilateral centrilobular emphysematous changes. Normal caliber of the thoracic aorta. Moderate calcific atherosclerosis of the thoracic aorta No pleural effusion, pericardial effusion or pneumothorax. IMPRESSION: 1. 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 2. No evidence of metabolically active recurrent or metastatic disease. 3. Intense focal FDG activity fusing to the distal esophagus, likely representing reflux disease. Upper GI endoscopy recommended for further evaluation. 07/17/23 CT CHEST W IV CONTRAST IMPRESSION: Interval increase in left upper lobe paramediastinal soft tissue thickening. Correlation with PET/CT or short-term CT follow-up to exclude recurrent disease is recommended. ASSESSMENT AND PLAN: Carlo Noriega is a very pleasant 78 y.o. year-old male with LEROY adenocarcinoma SBRT. Mr. Noriega is doing well clinically, without complaints outside of minor respiratory, which we will referto Pulmonary for further evaluation and potential management. Has had follow up with PCP and cardiology. Dr Seaman again stressed to patient the interval changes do not seem to be be new or progression of disease. I believe all of his and his 's questions were answered. Mr Patel is in agreement with continued surveillance. -RTC in [address] Seaman with repeat CT Chest. Future Appointments Date Time Provider Department Center 06/19/2024 11:00 AM Leandro Seaman MD [facility] Orders Placed This Encounter Procedures Ambulatory referral to Pulmonology He will continue to follow with his other healthcare providers in the interim as scheduled. Thank you for the opportunity to participate in the care of the patient. Please contact our department withany questions. Total time 30 minutes, reviewing his treatment plans, previous and current CT and in discussion with the patient. Sincerely, Jeri Douglas RN, MSN, RADIOLOGY AIDE-C, Nurse Practitioner Radiation Oncology Radiation Medicine [facility] Cosigned by Leandro Seaman MD at 12/25/2023 7:51 AM EST Associated attestation - Leandro Seaman MD - 12/25/2023 7:51 AM EST I attest to being involved in providing substantive part of the medical decision making in patient care. documented in this encounter Plan of Treatment Upcoming Encounters Date Type Department Care Team (Late st Contact Info) Description 01/15/2024 10:00 AM EST Ancillary Procedure [facility] Medicine Specialties [address] [place] [address] 01/15/2024 11:00 AM EST Consult [place] [facility] [address] [place] [address] Ida Nayak PA [address] [place] [address] 06/19/2024 11:00 AM EDT Appointment [facility] Radiation [address] [facility]. [id number] [place] [phone] Leandro Seaman MD [address] [facility] [address] [place] [address] Scheduled Referrals Name Type Priority Associated Diagnoses Orde r Schedule Ambulatory referral to Pulmonology Outpatient Referral Routine Chronic obstructive pulmonary disease with acute lower respiratory infection (CMS/HCC) Expected: 12/20/2023 (Approximate), Expires: 06/18/2024 documented as of this encounter Visit Diagnoses Diagnosis Chronic obstructive pulmonary disease with acute lower respiratory infection (CMS/HCC)- Primary documented in this encounter Additional Health Concerns Assessment Noted Time A fall risk assessment has been complete d for the patient 12/20/2023 10:03 AM EST A Body Mass Index follow-up plan has been documented for the patient 09/09/2023 9:05 PM EDT documented as of this encounter Care Teams Outpatient Physical Therapist Relationship Specialty Start Date End Date Carl Tate DO [address] [place] [address] PCP - General 04/17/23 Leandro Seaman MD [address] [facility] [address] [place] [phone] Consulting Physician Radiation Oncology 07/30/21 Carl Gaffney MD [facility] [place] [address] Referring Physician 05/12/23 documented as of this encounter
--- OUTSIDE RECORDS SUMMARY | 2024-01-11 09:08 | XMS_ITS | Encounter Summary ---
Author Organization [facility] Address [address] [place] [address] Care Team Providers Care Manager Instrumentation Name Role Phone Brandan Early MD Unavailable [phone] Encounter Details Date Type Department Care Team (Latest Contact Info) Description 12/27/2021 Travel Social History Tobacco Use Types Packs/Day Years Used Date Smoking Tobacco: Never Assessed Sex and Gender Information Value Date Recorded Sex Assigned at Not on file Legal Sex Male 10:58 AM EST Gender Identity Not on file Sexual Orientation Not on file COVID-19 Exposure Response Date Recorded In the last 10 days, have yo u been in contact with someone who was confirmed or suspected to have Coronavirus/COVID-19? Unable to assess 12/27/2021 8:55 AM EST documented as of this encounter Plan of Treatment Not on file documented as of this encounter Visit Diagnoses Not on filedocumented in this encounter Care Teams Manager Instrumentation Relationship Specialty Start Date End Date Brandan Early MD [address] [place] [address] [address] [place] [address] Interventional Cardiology 12/23/21 documented as of this encounter
--- OUTSIDE RECORDS SUMMARY | 2024-01-11 09:08 | XMS_ITS | Encounter Summary ---
Author Organization [facility] Address [address] [place] [address] Care Team Providers Care Pick Remover Name Role Phone Brandan Early MD Unavailable Peg Delgado MD Primary Care Provider Ramiro granados Reason for Visit * Auth/Cert (Routine) Specialty Diagnoses / Procedures Referred By Contac t Referred To Contact Diagnoses Coronary stent restenosis, sequela Coronary stent restenosis, sequela [T82.855S] Procedures WY CATH PLACEMENT & NJX CORONARY ART ANGIO IMG S&I WY PRQ TRLUML CORONARY ANGIOPLASTY ONE ART/BRANCH WY TCAT PLACEMENT RADJ DLVR DEV SBSQ C IV BRACHYTX SELECTIVE CORONARY ANGIOGRAPHY INTERVENTION - CORONARY CORONARY BRACHYTHERAPY Referral ID Status Reason Start Date Expiration Date Visits Re quested Visits Authorized [id number] 1 1 Encounter Details Date Type Department Care Team (Late st Contact Info) Description 12/28/2021 3:00 PM EST - 12/28/2021 4:45 PM EST Surgery Cardiac Rn Liaison [address] [id number] Brandan Early MD 3 [facility] [address] [place], [place] [address] SELECTIVE CORONARY ANGIOGRAPHY Social History Tobacco Use Types Packs/Day Years [...] Sign Reading Time Taken Comments Blood Pressure 119/67 12/28/2021 4:30 PM EST Pulse 70 12/28/2021 4:30 PM EST Temperature 36.7 ??C (98.1 ??F) 12/28/2021 12:[address] Respiratory Rate 16 12/28/2021 12:42 PM EST Oxygen Saturation 96% 12/28/2021 4:30 PM EST Inhaled Oxygen Concentration - - [...] Other reasons documented by physician/advanced practice nurse/physician chiropractor assistant (physician/COMPUTER NETWORK SUPPORT SPECIALIST/PA) or pharmacist Statin prescribed: Yes Antithrombotic prescribed: [...] NP - 12/28/2021 3:39 PM EST [facility] Assessment: 1. CAD - s/p PCI with brachytherapy to CX ISR per Dr. Brandan Ealry. Plan for Same Day Post PCI discharge [...] by Dr. Jarvis that patient has Afib. [place] and family not aware of this diagnosis. [...] meets all discharge criteria. RN to call laboratory assistant or Interventionalist division sergeant if patient does not meet criteria. ??? Medications changes include: Continue Plavix. Aspirin discontinued. Resume eliquis 12/29 in theafternoon. Pletal Rapamune and Diltiazem ordered Meds to beds. Ranexa dose decreased to 500 mg BID . Counseled re: risk factor and lifestyle modification, medication compliance, and medical follow-up. ??? Follow up with Dr. Gaffney, primary residential roofer, in 1 week Patient instructed to call [...] Other reasons documented by physician/advanced practice nurse/physician chiropractor assistant (physician/COMPUTER NETWORK SUPPORT SPECIALIST/PA) or pharmacist On Eliquis, Plavix and Pletal. No aspirin per Dr. Early Thienopyridine prescribed: Yes KELSIE-I or ARBPrescribed: EF greater than 40% NA Beta Slava prescribed: Yes Statin prescribed: Yes Left Ventricular Ejection Fraction (LVEF) is 55 % Echo Total time spent on this patient was >30 minutes including time spent with the patient, reviewing data, completing medical records, and communication with the patient. Signed: Emily Leroy NP Interventional Cardiology [phone] 12/28/2021 3:47 PM [facility] * Becca Dupont MD - 12/28/2021 12:49 PM EST RADIATION ONCOLOGY CONSULTATION Carlo Noriega [id number] DATE OF CONSULTATION: 12/28/2021 PCP: Peg Delgado MD JIGSAWYER: Brandan Early MD DIAGNOSIS: ICD-10-CM 1. Coronary [...] 324 mg 324 mg Oral Pre-Procedure Tiffani Rocha NP ??? clopidogreL (PLAVIX) tablet 600 mg 600 mg Oral Pre-Procedure Tiffani Rocha NP ??? dextrose 50 % injection 25-50 mL 25-50 mL Intravenous PRN Tiffani Rocha NP ??? sodium chloride 0.9% IV solution 125 [...] he received treatment for lung cancer at [facility] . They report that he receive 33 fractions at that time. 2. The patient and his family also report that more recently in 2021 (around July) the patient received 3 fractions of stereotactic radiation therapy to a single site in the lung. 3. Cardiac brachytherapy December 28, 2021 at [facility] with Dr. Early HRT: 1. Not applicable FAMILY HISTORY: Family History Problem Relation Name Age of Onset ??? Heart Problems Mother SOCIAL HISTORY: The patient lives in [facility]. He is and his 's name is [...] 2. The patient will follow-up with his residential roofer as scheduled CHEMOTHERAPY: 1. Not applicable CONSENT [...] Service Line Chief Complaint: Chest pain Primary Skills Trainer: Dr. TADEO Celaya Primary Care Provider: Peg [...] recent cardiac catheterization: From Dr. Gaffney to [facility]: Non-dom circ with recurrent ISR s/p several [...] patient. Signed: Tiffani Rocha APRN Interventional Cardiology [phone] 12/28/2021 12:29 PM [facility] Cosigned by Brandan Early MD at 12/29/2021 [...] their area that are certified by the [place] [employer] Pulmonary [employer](AACVPR) and they are provided with contact information for these programs. R: The patient has chosen to attend [place], [place] The referral was sent to this facility. Patient self reported Lifestyle Modification Goal: Goals None Diabetes education discussed and provided: No No results found for: HGBA1C, TGLYCO, GLYCOHEM * Interdisciplinary - Jet Dowling RN - 12/28/2021 3:48 PM EST Patient admitted to [facility] from [facility]. Nursing assessment per protocol. Report received from Roger KAUR. 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 REFERRING PHYSICIAN: Dr. Carl Gaffney, Skills Trainer in [facility]. 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 POSTOPERATIVE DIAGNOSIS: Successful percutaneous transluminal coronary angioplasty, vascular brachytherapy of circumflex coronary artery in-stent restenosis. COMPLICATIONS: None. DESCRIPTION OF PROCEDURE: Following Xylocaine local anesthesia in the right femoral region, a 7-[place]ese sheath was inserted in the right femoral artery. Selective left coronary angiography was performed with a 7-[place]ese Kaitlin left 4 curved short tipped guiding catheter, after which time a Somewhere flex wire was passed down the length of the circumflex and a 3.0 x 20 mm long NC balloon catheter was inflated to 14 atmospheres in the area of stenosis. Following repetitive inflations, a vascular brachytherapy was administered by Dr. Dupont of the radiation oncology service. All catheters were then removed. Hemostasis was achieved in the right femoral access with a single 6-[place]ese Angio-Seal.There were no complications of the procedure. ANGIOGRAPHIC FINDINGS: 1. Predilatation angiography demonstrates 90% high-grade in-stent restenosis. 2. Postdilatation angiography demonstrates 0% residual blockage. 3. No complication of the procedure. SAGRARIO/BEBETO * Interdisciplinary - Ruth Ivan RN - 12/28/2021 12:11 PM EST Patient admitted to [facility] from home Nursing assessment per protocol. Bilateral groin clipped per protocol by Maxime instructed on [facility] bed tracking board. * Interdisciplinary - Emily [...] PM EST) 12/28/2021 3:47 PM EST Narrative [facility] - 12/28/2021 3:49 PM EST ? [facility] ? Test Date: ?2021-12-28 15:47:49 Pat Name: ? CARLO CHANDNI ?Department: ?? CVRU ? Room: ? CTEMP Gender: ? Male ? Senior Ui Ux Developer: ?? TC : ?1945 ? Requested By: EMILY LEROY C. Order Number: [id number] ?Reading MD: ?? Cruzito Chu, MD ? Measurements Intervals ?[place] ? Rate: ? 66 ? P: ?21 WY: ? 172 ?QRS: ?55 QRSD: ? 122 ?T: ?62 QT: ? 408 ? QTc: ?428 ? Interpretive Statements Sinus rhythm Nonspecific intraventricular conduction delay Electronically Signed On 12-28-2021 15:49:00 EST by Cruzito Chu MD Procedure Note Cruzito Chu MD - 12/28/2021 [facility] Test Date: 2021-12-28 15:47:49 Pat Name: CARLO NORIEGA Department: [facility] Room: [facility] Gender: Male Senior Ui Ux Developer: : 1945 Requested By: EMILY Watt Order Number: [id number] Reading MD: Cruzito Chu MD Measurements Intervals Colton Rate: 66 P: 21 WY: 172 QRS: 55 QRSD: 122 T: 62 QT: 408 QTc: 428 Interpretive Statements Sinus rhythm Nonspecific intraventricular conduction delay Electronically Signed On 12-28-2021 15:49:00 EST by Cruzito Chu MD us Emily Leroy TELETYPESETTER MONITOR ECG ORDERABLES Final Result [facility] [address] [place] [address], [facility] * SELECTIVE CORONARY ANGIOGRAPHY, INTERVENTION - CORONARY, CORONARY BRACHYTHERAPY (12/28/2021 3:34 PMEST) Narrative Brandan Early MD - 12/29/2021 6:28 AM EST ? [facility] ?[address] ?[place], [place] ??[address] PATIENT: ?? CARLO NORIEGA ? ADMIT DATE:12/28/2021 ? ACCT: ?? 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 REFERRING PHYSICIAN: ??Dr. Carl Gaffney, Skills Trainer in [facility]. 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 POSTOPERATIVE DIAGNOSIS: ??Successful percutaneous transluminal coronary angioplasty, vascular brachytherapy of circumflex coronary artery in-stent restenosis. COMPLICATIONS: ??None. DESCRIPTION OF PROCEDURE: ??Following Xylocaine local anesthesia in the right femoral region, a 7-[place]ese sheath was inserted in the right femoral artery. ??Selective left coronary angiography was performed with a 7-[place]ese Kaitlin left 4 curved short tipped guiding [...] the right femoral access with a single 6-[place]ese Angio-Seal. ??There were no complications of the procedure. ANGIOGRAPHIC FINDINGS: ?? 1. Predilatation angiography demonstrates 90% high-grade in-stent restenosis. 2. Postdilatation angiography demonstrates 0% residual blockage. 3. No complication of the procedure. D: ??12/28/2021 15:27:19 T: ??12/28/2021 15:39:00 ??NIGELK/BEBETO Job #: ??[id number] Coronary Findings Diagnostic Dominance: Right Left Circumflex: [...] ACT LOW RANGE (12/28/2021 3:07 PM EST) POC ACTLR 273 seconds TC POSTDOCTORAL SCIENTIST AL LAB Comment: ACT TARGET RANGES : [...] OF CARE TEST ORDERABL ES Final Result [facility] [address] * POC ACT LOW RANGE (12/28/2021 2:48 PM EST) POC ACTLR 375 seconds [facility] POSTDOCTORAL SCIENTIST AL LAB Comment: ACT TARGET RANGES : [...] OF CARE TEST ORDERABL ES Final Result Performing Organization Address [facility]/State/[facility] Co de Phone Number [facility] [address] * ECG (12/28/2021 12:44 PM EST) 12/28/2021 12:4 4 PM EST Narrative [facility] - 12/28/2021 3:07 PM EST ? [facility] ? Test Date: ?2021-12-28 12:44:10 Pat Name: ? CARLO NORIEGA ?Department: ?? CVRU ? Room: ? 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 Male ? Senior Ui Ux Developer: ?? DF : ?1945 ? Requested By: TIFFANI BROWNFERNANDA MilyBear Order Number: [id number] ?Reading MD: ?? Sandeep Hanley MD ? Measurements Intervals ?[place] ? Rate: ? 67 ? P: ?13 WY: ? 169 ?QRS: ?30 QRSD: ? 100 ?T: ?66 QT: ? 408 ? QTc: ?431 ? Interpretive Statements Sinus rhythm Low voltage, precordial leads No previous tracing for comparison. Electronically Signed On 12-28-2021 15:07:21 EST by Sandeep Hanley MD Procedure Note Sandeep Hanley MD - 12/28/2021 [facility] Test Date: 2021-12-28 12:44:10 Pat Name: CARLO NORIEGA Department: [facility] Room: HIGH SCHOOL COMPUTER SCIENCE TEACHER POOL Gender: Male Senior Ui Ux Developer: DF : 1945 Requested By: TIFFANI JACKSON. Order Number: [id number] Reading MD: Sandeep Hanley MD Measurements Intervals Colton Rate: 67 P: 13 WY: 169 QRS: 30 QRSD: 100 T: 66 QT: 408 QTc: 431 Interpretive Statements Sinus rhythm Low voltage, precordial leads No previous tracing for comparison. Electronically Signed On 12-28-2021 15:07:21 EST by Sandeep Hanley MD Tiffani Rocha NP ECG ORDERABLES Final R esult [facility] [address] * (ABNORMAL) LIPID PROFILE (12/28/2021 12:30 PM EST) Chol/HDL Ratio 3.4 0 - 5 TC E XTERNAL LAB Cholesterol 125 125 - 199 mg/dL [facility] Comment: TOTAL CHOLESTEROL INTERPRETATION: Less than 200 mg/dL Desireable 200-239 mg/dL Borderline Greater or Equal to 240 mg/dL High LDL Calculated 67 0 - 100 mg/dL [facility] Comment: LDL CHOLESTEROL INTERPRETATION: ?? Less than 100 mg/dL Optimal 100-129 mg/dL Near optimal/above optimal 130-159 mg/dL Borderline High 160-189 mg/dL High Greater or Equal to 190 mg/dL Very High HDL 37(L) 40 - 180 mg/dL [facility] EXTERNAL [facility] Comment: HDL CHOLESTEROL INTERPRETATION: ?? Less than 40 mg/dL Low Greater than 60 mg/dL Desirable Triglycerides 104 0 - 149 mg/dL [facility] Comment: TOTAL TRIGLYCERIDE INTERPRETATION: ?? Less than 150 mg/dL Normal 150-199 mg/dL Borderline HIgh 200-499 mg/dL High Greater or Equal to 500 mg/dL Very High Serum 12/28/2021 12:3 0 PM EST 12/28/2021 12:35 PM EST us Brandanlaura Early MD CHEMISTRY ORDERABLES Final Result [facility] [address] * BASIC METABOLIC PANEL (BMP=EP1) (12/28/2021 12:30 PM EST) Sodium 139 135 - 146 mmol/L [facility] Potassium 4.5 3.5 - 5.1 mmol/L [facility] EXTERNAL LAB Chloride 107 98 - 110 mmol/L [facility] EX[facility] CO2 23 22 - 29 mmol/L [facility] Comment: Based on [facility] recommendations, this result is no longer considered a critical value requiring lab to notify caregiver. Anion Gap 9 5 - 13 mmol/L [facility] Comment:Anion gap calculatio n does not include potassium (K+) value. BUN 10 7 - 25 mg/dL [facility] Comment: Based on [facility] recommendations, this result is no longer considered a critical value requiring lab to notify caregiver. Creatinine 1.01 0.50 - 1.30 mg/dL [facility] Glucose 97 71 - 99 mg/dL [facility] eGFR CKD-EPI 2020 78 See Note [facility] Comment: eGFR calculated with 2020 CKD-EPI equation using creatinine, patient's age and gender. Other factors, especially muscle mass, may affect accuracy and need to be considered. Patient values should be interpreted as a trend. The reference interval is >60 mL/min/1.73m2. Calcium 9.6 8.8 - 10.9 mg/dL [facility] BUN/Creatinine Ratio 10 [facility] Serum 12/28/2021 12:3 0 PM EST 12/28/2021 12:35 PM EST us Brandan Early MD CHEMISTRY ORDERABLES Final Result Performing Organization Address [facility]/[place] de Phone Number [facility] [address] * CBC (COMPLETE BLOOD COUNT) (12/28/2021 12:30 PM EST) WBC 8.19 3.80 - 10.80 10*3/uL [facility] EXTERNAL [facility] RBC 4.93 4.20 - 5.80 10*6/uL [facility] Hemoglobin 14.0 13.2 - 17.1 g/dL [facility] Hematocrit Blood 44.8 40.0 - 51.0 % [facility] MCV 90.9 80.0 - 100.0 fL [facility] MCH 28.4 27.0 - 33.0 pg [facility] MCHC 31.3 30.0 - 36.0 g/dL [facility] RDW 14.0 11.0 - 15.0 % [facility] Platelets 193 140 - 400 10*3/uL [facility] MPV 10.0 9.0 - 13.0 fL [facility] Whole Blood 12/28/2021 12:3 0 PM EST 12/28/2021 12:35 PM EST us Brandan Lang Early MD HEMATOLOGY ORDERABLES Final Result Performing Organization Address [facility]/[place] de Phone Number [facility] [address] documented in this encounter Visit Diagnoses Diagnosis Coronary stent restenosis, sequela- Primary CAD S/P percutaneous coronary angioplasty Coronary atherosclerosis of [place] coronary artery Coronary stent restenosis, sequela documented [...] Given 12/28/2021 5:33 PM EST 120 mg fentanyl (Sublimaze) 50 mcg/mL injection INTRA-OP PRN, Starting on Mon12/28/21 at 1421, Intra-op Given 12/28/2021 2:21 PM EST 50 mcg heparin (porcine) injection INTRA-OP PRN, Starting on Mon12/28/21 at 1439, Intra-op Given 12/28/2021 2:39 PM EST 4,000 Units hydrALAZINE (APRESOLINE) injection 10 mg 10 mg, Intravenous, ONCE PRN, High Blood Pressure, Starting on Mon12/28/21 at 1528, For 1 dose, For line pull If HR less than or equal to 70, for SBP greater than 180, or DBP greater than 115. iopamidoL (ISOVUE-370) 370 mg iodine /mL (76 %) injection INTRA-OP PRN, Starting on Mon12/28/21 at 1524, Until Mon12/28/21 at 1538, Intra-op Given 12/28/2021 3:24 PM EST 40 mL labetaloL (NORMODYNE;TRANDATE) injection 10 mg 10 mg, Intravenous, PRN, High Blood Pressure, Starting on Mon12/28/21 at 1528, For line pull If HR GREATER than or equal to 70, for SBP between 160-170 or DBP between 100-115/ May repeat with 20 mg every 10 Minutes times 2 doses. If still greater, contact MD. lidocaine 2 % injection INTRA-OP PRN, Starting on Mon12/28/21 at 1433, Intra-op Given 12/28/2021 2:31 PM EST 10 mL Right Groin midazolam (Versed) 1 mg/mL injection INTRA-OP PRN, Starting on Mon12/28/21 at 1421, Intra-op Given 12/28/2021 2:21 PM EST 1 mg niCARdipine in 0.9 % sod chlor (Cardene) 1 mg/10 mL injection INTRA-OP PRN, Starting on Mon12/28/21 at 1451, Intra-op Given 12/28/2021 2:51 PM EST 300 mcg nitroglycerin INTRA-OP PRN, Starting on Mon12/28/21 at 1442, Intra-op Given 12/28/2021 2:43 PM EST 200 mcg Given 12/28/2021 2:42 PM EST 200 mcg ondansetron (PF) (ZOFRAN) injection 4 mg 4 [...] 1 dose and notify Physician protamine injection INTRA-OP PRN, Starting on Mon12/28/21 at 1518, Intra-op Given 12/28/2021 3:18 PM EST 20 mg sirolimus (RAPAMUNE) tablet 10 mg 10 mg, [...] Mon12/28/21 at 1528 Tirofiban (Aggrastat) bolus injection INTRA-OP PRN, Starting on Mon12/28/21 at 1440, Intra-op Given 12/28/2021 2:40 PM EST 1,802.5 mcg documented in this encounter Active and Recently [...] every 2 minutes, two times. Call MD. dextrose 50 % injection 25-50 mL 25-50 [...] times 2 doses. If still greater, contact . lidocaine 2 % injection (CANCELED) INTRA-OP PRN, [...] RN) documented in this encounter Care Teams Pick Remover Relationship Specialty Start Date End Date Peg Delgado MD [address] [place] [address] PCP - General Family Medicine 12/28/21 Brandan Early MD [address] [place] [id number] Interventional Cardiology 12/23/21 documented as of this encounter
--- OUTSIDE RECORDS SUMMARY | 2024-01-11 09:08 | XMS_ITS | Encounter Summary ---
Author Organization [facility] Address [address] [place] [address] Care Team Providers Care Ski Lift Mechanic Name Role Phone Leandro Seaman MD Unavailable [phone] Carl Tate DO Primary Care Provider [phone] Carl Gaffney MD Unavailable [phone] Encounter Details Date Type Department Care Team (Latest Contact Info) Description 12/17/2023 Travel Social History Tobacco Use Types Packs/Day [...] Description 01/15/2024 10:00 AM EST Ancillary Procedure [facility] Medicine Specialties [address] [place] [address] 01/15/2024 11:00 AM EST Consult [facility] Specialties [address] [place] [address] Ida Nayak PA [address] [place] [address] 06/19/2024 11:00 AM EDT Appointment [facility] Radiation [address] [facility] [id number] [place] [phone] Leandro Seaman MD [address] [facility] [address] [place] [address] documented as of this encounter Visit Diagnoses Not on filedocumented in this encounter Additional Health Concerns Assessment Noted Time A fall risk assessment has been complete d for the patient 09/06/2023 11:15 AM EDT A Body Mass Index follow-up plan has been documented for the patient 09/09/2023 9:05 PM EDT documented as of this encounter Care Teams Ski Lift Mechanic Relationship Specialty Start Date End Date Carl Tate DO [address] [place] [address] PCP - General 04/17/23 Leandro Seaman MD [address] [place] [phone] Consulting Physician Radiation Oncology 07/30/21 Carl Gaffney MD [address] [place] [address] Referring Physician 05/12/23 documented as of this encounter
--- OUTSIDE RECORDS SUMMARY | 2024-01-11 09:08 | XMS_ITS | Encounter Summary ---
Author Organization [facility] Address [address] [place] [address] Care Team Providers Care Mixologist Name Role Phone Brandan Early MD Unavailable Peg Delgado MD Primary Care Provider Ramiro granados Reason for Visit * Reason Onset Date Comments Questions About Medications 02/01/2022 Encounter Details Date Type Department Care Team (Late st Contact Info) Description 02/01/2022 Telephone [facility] Physicians - Heart & Vascular, [place] [address] [facility] [address] [place] [address] Brandan Early MD [address] [facility] [address] [place], [place] [address] Questions About Medications Social History Tobacco Use Types Packs/Day Years Used Date Smoking Tobacco: Former Cigarettes Alcohol Use Standard Drinks/Week Comments Yes 0 (1 standard drink = 0.6 oz pur e alcohol) Sex and Gender Information Value Date Recorded Sex Assigned at Not on file Legal Sex Male 10:58 AM EST Gender Identity Not on file Sexual Orientation Not on file documented as of this encounter Miscellaneous Notes * Telephone Encounter - Tricia Holland RN - 02/01/2022 11:34 AM EST Called and spoke with patient. Advised him based on previous conversation with SAGRARIO, that it he is unable to tolerate pletal at 1/2 tab dose or once daily dosing - he can stop this medication due to side effects. Updated med list to show patient has stopped Xarelto, is back on ASA 81 mg daily. * Telephone Encounter - [place] - 02/01/2022 10:36 AM EST Pt called and stated that he is taking cilostazol 50 mg once daily but it it causing diarrhea . The pt would like to know if there is another medication he can take that wont cause diarrhea. Thank you documented in this encounter Plan of Treatment Not on file documented as of this encounter Visit Diagnoses Not on filedocumented in this encounter Care Teams Mixologist Relationship Specialty Start Date End Date Peg Delgado MD [address] [place] [address] PCP - General Family Medicine 12/28/21 Brandan Early MD [address] [place] [address] Interventional Cardiology 12/23/21 documented as of this encounter
--- OUTSIDE RECORDS SUMMARY | 2024-01-11 09:08 | XMS_ITS | Clinical Summary ---
Author Organization [facility] Address [address] [place] [address] Care Team Providers Care Die Keeper Name Role Phone Brandan Early MD Unavailable [phone] Peg Delgado MD Primary Care Provider Unavai lable Allergies No known active allergies Medications furosemide (LASIX) 20 mg tablet Take by mouth daily. Takes three times a week, Monday, Mon, Monday 2 Active spironolactone (ALDACTONE) 25 mg tablet TAKE 1 TABLET BY MOUTH ONCE DAILY FOR FLUID 2 Active metoprolol succinate (TOPROL) 25 mg XL tablet Take by mouth daily. 2 Active finasteride (PROSCAR) 5 mg tablet Take by mouth daily. 2 Active atorvastatin (LIPITOR) 80 mg Tablet Take by mouth nightly at bedtime. 2 Active clopidogreL (PLAVIX) 75 mg tablet TAKE 1 TABLET BY MOUTH ONCE DAILY FOR ANTIPLATELET 2 Active L.acid/L.casei/ B.bif/B.karely/FOS (PROBIOTIC BLEND PO) Take by mouth. Activ e Ranolazine (RANEXA) 500 mg Tablet Sustained Release 12 hr Take 1 Tablet (500 mg) by mouth 2 times daily. 60 Tablet 2 Active aspirin 81 mg Tablet, Delayed Release (E.C.) Take 81 mg by mouth daily. Active Active Problems Problem Noted Date Diagnosed Date CAD S/P percutaneous coronary angioplasty 2021 Coronary stent restenosis, sequela 12/23/2021 Overview (12/23/2021): Added automatically from request for surgery [id number] Family History Medical History Relation Name Comments Heart Problems Mother Relation Name Status Comments Mother Social History Tobacco Use Types Packs/Day [...] on file Sexual Orientation Not on file Last Filed Vital Signs Vital Sign Reading [...] Mass Index 25.66 12/28/2021 12:00 PM EST Plan of Treatment Health Maintenance Due Date Last Done Comments Tetanus Vaccination (Every 10 Years) 07/30/1965 Hepatitis C Virus (HCV) Screening 07/30/1968 Zoster-RZV(Shingrix) (1 of 2) 07/30/1997 Fall Risk Assessment 07/30/2012 Pneumococcal Vaccine: 65+ Years (1 of 1 - PCV) 013 RSV Vaccines (1 - 1-dose 75+ series) 07/30/2022 Lipid Monitoring 12/28/2022 12/28/2021 Advance Care Planning 02/06/2023 Depression Screening 02/06/2023 COVID-19 Vaccine ( - 2023- season) 2023 Influenza Vaccination (#1) 2023 11/06/2014 Lipid Screening Discontinued 12/28/2021 Medical Devices Implanted Type Area Pump Stitcher Device Identifier Shelf Expiration Date Model / Serial / Lot Device Clsr Vasc Angioseal 6fr - [id number] Implanted:Qty : 1 on 12/28/2021 by Brandan Early MD at [facility] Closure Device [employer] ON[employer]IMO [id number] 10/06/2022 [id number] / / [id number] 2 Description:RFA Procedures Procedure Name Priority Date/Time Associated Diagnosis Comments LIPID PROFILE Routine 12/28/2021 12:30 PM EST from Last 3 Months or Most Recently Relevant to Health Maintenance Results * (ABNORMAL) LIPID PROFILE (12/28/2021 12:30 PM EST) Chol/HDL Ratio 3.4 0 - 5 TC E XTERNAL LAB Cholesterol 125 125 - 199 mg/dL [facility] Comment: TOTAL CHOLESTEROL INTERPRETATION: Less than 200 mg/dL Desireable 200-239 mg/dL Borderline Greater or Equal to 240 mg/dL High LDL Calculated 67 0 - 100 mg/dL [facility] Comment: LDL CHOLESTEROL INTERPRETATION: ?? Less than 100 mg/dL Optimal 100-129 mg/dL Near optimal/above optimal 130-159 mg/dL Borderline High 160-189 mg/dL High Greater or Equal to 190 mg/dL Very High HDL 37(L) 40 - 180 mg/dL [facility] Comment: HDL CHOLESTEROL INTERPRETATION: ?? Less than 40 mg/dL Low Greater than 60 mg/dL Desirable Triglycerides 104 0 - 149 mg/dL [facility] Comment: TOTAL TRIGLYCERIDE INTERPRETATION: ?? Less than 150 mg/dL Normal 150-199 mg/dL Borderline HIgh 200-499 mg/dL High Greater or Equal to 500 mg/dL Very High Serum 12/28/2021 12:3 0 PM EST 12/28/2021 12:35 PM EST us Brandanlaura Early MD CHEMISTRY ORDERABLES Final Result [facility] [address] [place] [address] from Last 3 Months or Most Recently Relevant to Health [place] [address] [place] [address] MEDICARE PART A [facility] [address] [address] [place] [address] [facility] Advance Directives For more information, please contact: [phone] * Full Code (Latest Code Status on File) Date Activated Date Inactivated Comments 12/28/2021 3:31 PM No automated chest compression devices for VAD Patients Care Teams Die Keeper Relationship Specialty Start Date End Date Peg Delgado MD [address] [place] [address] PCP - General Family Medicine 12/28/21 Brandan Early MD [address] [place] [address] Interventional Cardiology 12/23/21
--- OUTSIDE RECORDS SUMMARY | 2024-01-11 09:08 | XMS_ITS | Encounter Summary ---
Author Organization [facility] Address [address] [place] [address] Care Team Providers Care Residential Case Manager Name Role Phone Brandan Early MD Unavailable Peg Delgado MD Primary Care Provider Ramiro granados Encounter Details Date Type Department Care Team (Latest Contact Info) Description 12/28/2021 Travel Social History Tobacco Use Types Packs/Day [...] on filedocumented in this encounter Care Teams Residential Case Manager Relationship Specialty Start Date End Date Peg Delgado MD [address] [place] [address] PCP - General Family Medicine 12/28/21 Brandan Early MD [facility] [address] Interventional Cardiology 12/23/21 documented as of this encounter
--- OUTSIDE RECORDS SUMMARY | 2024-01-11 09:08 | XMS_ITS | Encounter Summary ---
Author Organization [facility] Address [address] [id number] Care Team Providers Care Slitting Machine Operator Name Role Phone Brandan Early MD Unavailable [phone] Peg Delgado MD Primary Care Provider Ramiro granados Reason for Visit * Other (Routine) - Not Needed Specialty Diagnoses / Procedures Referred By Contac t Referred To Contact Radiation Oncology Diagnoses Atherosclerotic heart disease of [place] coronary artery without angina pectoris FRITZ/PORTER/FATOU NGO/AM Procedures [facility] BASIC RAD DOS CALC [facility] RAD SPECIAL MEDICAL PHYSICS CONSULTATION [facility] SPEC TX PROCEDURE HCHG HDR RDNCL NTRSTL/ICAV BRCHTX 1 CHANNEL HCHG HDR RDNCL NTRSTL/ICAV BRCHTX 2-12 CH HCHG HDR RDNCL NTRSTL/ICAV BRCHTX OVER 12 AREVALO Becca Carbone MD [address] [facility] [place] [address] Phone: tel: fax: Radiation Oncology [address] [place] [address] Phone: tel: Referral ID Status Reason Start Date Expiration Date V isits Requested Visits Authorized [id number] Not Needed 12/28/2021 12/28/2022 1 1 Encounter Details Date Type Department Care Team (Late st Contact Info) Description 12/28/2021 3:00 PM EST - 12/28/2021 3:19 PM EST Hospital Encounter Radiation Oncology [address] [place] [address] Becca Dupont MD [address] [place] [address] Social History Tobacco Use Types Packs/Day Years [...] AM EST documented as of this encounter Medications at [...] 2 times daily. 60 Tablet 5 12/28/2021 diltiazem (CARDIZEM CD) 120 mg capsule Take [...] 11/01/2021 2 documented as of this encounter Consult Notes * Becca Dupont MD - 12/28/2021 3:00 PM EST RADIATION ONCOLOGY CONSULTATION Carlo Noriega [id number] DATE OF CONSULTATION: 12/28/2021 PCP: Peg eDlgado MD THERAPEUTIC RECREATION ASSISTANT: Brandan Early MD DIAGNOSIS: 1. In stent re-stenosis of circumflex coronary artery. STAGE: 1. Not applicable PERFORMANCE STATUS: ECO. Restricted in physically strenuous activity but ambulatory and able to carry out work of alight or sedentary nature, e.g., light house work, office work. HISTORY OF PRESENT ILLNESS: Carlo Noriega is a very pleasant 76 y.o. gentleman with in stent restenosis of the circumflex coronary artery. He has been identified by Dr. Early as a candidate forNOVOSTE cardiac brachytherapy. Dr. Early has very kindly requested consultation with the Radiation Oncology service. REVIEW OF SYSTEMS: The patient does not currently report chest pain PAIN ASSESSMENT: 1. The patient does not currently report pain MEDICATIONS: Current Outpatient Medications Medication Sig Dispense Refill ??? atorvastatin (LIPITOR) 80 mg Tablet Take by mouth nightly at bedtime. ??? cilostazoL (PLETAL) 100 mg tablet Take 0.5 Tablets (50 mg) by mouth 2 times daily. 60 Tablet 5 ??? clopidogreL (PLAVIX) 75 mg tablet TAKE 1 TABLET BY MOUTH ONCE DAILY FOR ANTIPLATELET ??? diltiazem (CARDIZEM CD) 120 mg capsule Take 1 Capsule (120 mg) by mouth daily for 13 days 13 Capsule 0 ??? finasteride (PROSCAR) 5 mg tablet Take by mouth daily. ??? furosemide (LASIX) 20 mg tablet Take by mouth daily. Takes three times a week, Monday, Mon, MONDAY ??? L.acid/L.casei/B.bif/B.karely/FOS (PROBIOTIC BLEND PO) Take by mouth. ??? metoprolol succinate (TOPROL) 25 mg XL tablet Take by mouth daily. ??? Ranolazine (RANEXA) 500 mg Tablet Sustained Release 12 hr Take 1 Tablet (500 mg) by mouth 2 times daily. 60 Tablet 0 ??? sirolimus (Rapamune) 1 mg Tablet Take 3 Tablets (3 mg) by mouth daily for 13 days. 39 Tablet 0 ??? spironolactone (ALDACTONE) 25 mg tablet TAKE 1 TABLET BY MOUTH ONCE DAILY FOR FLUID ??? Xarelto 2.5 mg Tablet Take by mouth 2 times daily. No current facility-administered medications for this encounter. ALLERGIES: No Known Allergies PAST MEDICAL HISTORY: Past Medical History: Diagnosis Date ??? Asthma PAST SURGICAL HISTORY: Past Surgical History: Procedure Laterality Date ??? CARDIAC CATH / ANGIO PROCEDURE ??? CORONARY BRACHYTHERAPY 12/28/2021 CORONARY BRACHYTHERAPY performed by Brandan Early MD at [facility] CARDIAC ABSTRACT CLERK ??? FEMUR/KNEE SURG UNLISTED ??? HX OTHER SURGICAL HISTORY ??? INTERVENTION - CORONARY 12/28/2021 INTERVENTION - CORONARY performed by Brandan Early MD at [facility] CARDIAC ABSTRACT CLERK ??? SELECTIVE CORONARY ANGIOGRAPHY 12/28/2021 SELECTIVE CORONARY ANGIOGRAPHY performed by Brandan Early MD at [facility] CARDIAC ABSTRACT CLERK IMPLANTABLE CARDIAC DEVICE: 1. No documented history of implantable cardiac device PAST RADIATION HISTORY: 1. The patient reports that he has not previously received radiation therapy treatment HRT: 1. Not applicable FAMILY HISTORY: Family History Problem Relation Name Age of Onset ??? Heart Problems Mother SOCIAL HISTORY: The patient is . He lives in [facility]. He is a former smoker. He occasionally drinks alcohol. RISK FACTORS: 1. Family history of heart disease SMOKING CESSATION: 1. Not applicable as the patient does not currently smoke. PHYSCIAL EXAMINATION: General:This is a well-developed, well-nourished, very pleasant gentleman HEAD&NECK: No neck adenopathy. PULMONARY: CTAB CARDIAC: RRR ABDOMEN: Soft, non-tender, non-distended LYMPH NODE EXAMINATION: No lymphadenopathy supraclavicular region EXTREMITIES: No clubbing, cyanosis or edema MUSCULOSKELETAL: Normal range of motion and strength INTEGUMENT: No rashes or ulcerations PSYCHIATRIC: Normal insight and judgement NEUROLOGICAL: Nonfocal LABORATORY VALUES: Lab Results Component Value Date WBC 8.19 12/28/2021 HGB 14.0 12/28/2021 HCT 44.8 12/28/2021 MCV 90.9 12/28/2021 PLT 193 12/28/2021 Lab Results Component Value Date BUN 10 12/28/2021 Lab Results Component Value Date CREATININE 1.01 12/28/2021 TEST: 1. Not applicable ASSESSMENT: Mr. Hubbard is a very pleasant 76-year-old gentleman with in stent restenosis of the circumflex coronary artery. He was identified by Dr. Early as a candidate for NOVOSTE cardiac brachytherapy. I reviewed the technique rationale expectations and potential side effects of nose cardiac brachytherapy with the patient and he has had a chance to ask questions and have these answered. PLAN: 1. NOVOSTE cardiac brachytherapy for in stent restenosis of the circumflex coronary artery. CHEMOTHERAPY: 1. Not applicable CONSENT TO TREAT 1. Consent for treatment was obtained prior to delivery of cardiac brachytherapy Thank you for allowing me to participate in the care of this patient. 45 minutes was spent reviewing the patient's case, coordinating care with other physicians, and in consultation with the patient. Becca Dupont MD documented in this encounter Miscellaneous Notes * Rad Onc Treatment Planning Note - Becca Dupont MD - 12/28/2021 3:00 PM EST Radiation Oncology Cardiac Brachytherapy Note Patient Name: Carlo Noriega : 1945 DOS: 12/28/2021 Carlo Noriega is a 76 y.o. male with coronary artery disease. The patient has developed restenosis in the circumflex artery. Carlo Noriega underwent angioplasty of this area today and is being treated with radiation therapy following this to prevent further restenosis. The following is a summary of the radiation therapy. Carlo Noriega was treated with Novoste high dose rate brachytherapy treatment system. The source length was 40 mm.; the vessel diameter was 3 mm. A dose of 18.4 Gy was delivered 2 mm from the distance of the source. Simulation was utilized to determine accurate placement of the catheter and the source. The treatment was delivered over 274 seconds. The dose was calculated to the distance. Carlo Noriega tolerated the treatment without difficulty. he will follow up with his survey supervisor. Becca Dupont MD Radiation Oncology [facility] [phone] * Addendum Note - Becca Dupont MD - 12/28/2021 3:00 PM ESTEncounter addended by: Becca Dupont MD on: 12/28/2021 3:20 PM Actions taken: Clinical Note Signed * Addendum Note - Becca Dupont MD - 12/28/2021 3:00 PM ESTEncounter addended by: Becca Dupont MD on: 01/24/2022 12:12 PM Actions taken: Charge Capture section accepted, Clinical Note Signed documented in this encounter Plan of Treatment Not on file documented as of this encounter Visit Diagnoses Not on filedocumented in this encounter Care Teams Slitting Machine Operator Relationship Specialty Start Date End Date Peg Delgado MD [facility] [place] [address] PCP - General Family Medicine 12/28/21 Brandan Early MD [address] [place] [address] Interventional Cardiology 12/23/21 documented as of this encounter
--- OUTSIDE RECORDS SUMMARY | 2024-01-11 09:08 | XMS_ITS | Encounter Summary ---
Author Organization [facility] Address [address] [place] [address] Care Team Providers Care Parachute Manufacturing Supervisor Name Role Phone Brandan Early MD Unavailable Peg Delgado MD Primary Care Provider Ramiro granados Reason for Visit * Reason Onset Date Comments Cath Instructions 12/23/2021 Urgent Brachy case per [facility] Encounter Details Date Type Department Care Team (Late st Contact Info) Description 12/23/2021 Refill [facility] Physicians - Heart & Vascular, [address] [phone] Brandan Early MD [address] [place] [phone] Cath Instructions (Urgent Brachy case per [facility]) Social History Tobacco Use Types Packs/Day Years [...] Telephone Encounter - Tricia Holland RN - 12/27/2021 1:46 PM EST Brachy 12/28 - meds to be signed * Telephone Encounter - Tricia Holland RN - 12/24/2021 3:48 PM EST Spoke with patient in regards to pre procedure instructions for BRACHYTHERAPY scheduled with [facility] for 12/28 at 3 pm. Patient advised to arrive at 1 pm at [facility] to registration. Patient instructed to bring insurance card, photo ID and a small overnight bag with them the day of procedure. Patient advised to be NPO (nothing to eat) after midnight. . Patient advised to hold furosemide AM of procedure. Patient advised to hold Xarelto for 2 days prior to procedure. Patient to have pre procedure labs completed on Monday at [facility] (fax [phone]). Patient verbalized understanding of all of the above. [x] Case Request entered [facility], Poss PCI, Brachy Diagnosis used: [x] T82.855A Coronary Artery Stent Restenosis (Initial Encounter) PRIMARY DIAGNOSIS [] Z95.5 S/P Coronary artery stent [] I25.110 Atherosclerosis of [place] coronary artery of [place] heart [] Case scheduled with Radiation Oncology Medications ordered: [x] diltiazem CD 120 mg daily for 13 days (This is used to decrease coronary spasm and increase theblood levels of sirolimus) [x] Sirolimus (Rapamune) 1 mg tablets - 3 mg daily for 13 days (1 mg tab #39). Patient will get 10 mg dose the day of procedure at the hospital. (Insurance does not typically cover this. GoodRx available (GoodRx-Sirolimus) to bring cost to ~$140 at [facility]. This is used to decrease incidence of restenosis.) [x] Pletal 100 mg - 100 mg Twice a day for 6 months (100 mg tab #60 with 5 refills) (If insurance does not cover this, it is also available at decreased cost through GoodRx (GoodRx-Pletal) for $[address] [facility] and ~$15 at [facility]) [x] Medications called to [phone] (to [facility]) NO MORE THAN 14 days prior to procedure. [x] Patient???s family advised to go to the Apothecary (located in the [facility]) during the patient???s procedure and last picker all 3 of these prescriptions. * Telephone Encounter - Tricia Holland RN - 12/23/2021 11:59 AM EST Per [facility]: Very important referral from Dr. René Gaffney. Please must be put on next Monday. If not, must find a way to add on earlier in week. From Dr. Gaffney to [facility]: Non-dom circ with recurrent ISR s/p several SOFY. Last stent was 07/28 with 2.5 stent post dilated high inflation 3 mm balloon. Class III AP despite GMDT. Baseline creat 1.4.Agreeable to see you pre-cath and then having brachy. Called Dr. Gaffney's office to request records, also to request cath films be sent (either [employer] or overnight [employer]). Working with Rad/Onc and labor and employment paralegal to find time to add case on for next week. Options include Monday after last TAVR/alcohol septal ablation, Monday AM, or (at Rad/Onc preference) 3:30 pm. documented in this encounter Plan of Treatment Not on file documented as of this encounter Visit Diagnoses Diagnosis Coronary stent restenosis, sequela- Primary documented in this encounter Care Teams Parachute Manufacturing Supervisor Relationship Specialty Start Date End Date Peg Delgado MD [address] [place] [address] PCP - General Family Medicine 12/28/21 Brandan Early MD [address] [place] [address] Interventional Cardiology 12/23/21 documented as of this encounter
--- OUTSIDE RECORDS SUMMARY | 2024-01-11 09:08 | XMS_ITS | Encounter Summary ---
Author Organization [facility] Address [address] [place] [address] Care Team Providers Care Manager Mental Health Name Role Phone Leadnro Seaman MD Unavailable [phone] Carl Tate DO Primary Care Provider [phone] Carl Gaffney MD Unavailable [phone] Encounter Details Date Type Department Care Team (Latest Contact Info) Description 12/20/2023 Travel Social History Tobacco Use Types Packs/Day [...] Description 01/15/2024 10:00 AM EST Ancillary Procedure [facility] Medicine Specialties [address] [place] [address] 01/15/2024 11:00 AM EST Consult [facility] Medicine Specialties [address] [place] [address] Ida Nayak PA [address] [place] [address] 06/19/2024 11:00 AM EDT Appointment [facility] Radiation [address] [facility] [id number] [place] [phone] Leandro Seaman MD [address] [facility] [address] [place] [phone] documented as of this encounter Visit Diagnoses Not on filedocumented in this encounter Additional Health Concerns Assessment Noted Time A fall risk assessment has been complete d for the patient 12/20/2023 10:03 AM EST A Body Mass Index follow-up plan has been documented for the patient 09/09/2023 9:05 PM EDT documented as of this encounter Care Teams Manager Mental Health Relationship Specialty Start Date End Date Carl Tate DO [address] [place] [address] PCP - General 04/17/23 Leandro Seaman MD [address] [place] [phone] Consulting Physician Radiation Oncology 07/30/21 Carl Gaffney MD [address] [place] [address] Referring Physician 05/12/23 documented as of this encounter
--- OUTSIDE RECORDS SUMMARY | 2024-01-11 09:09 | XMS_ITS | Encounter Summary ---
Author Organization [facility] Address [address] [place] [address] Care Team Providers Care Highway Maintainer Name Role Phone Leandro Seaman MD Unavailable [phone] Carl Tate DO Primary Care Provider [phone] Carl Gaffney MD Unavailable [phone] Encounter Details Date Type Department Care Team (Latest Contact Info) Description 08/21/2023 Travel Social History Tobacco Use Types Packs/Day Years Used Date Smoking Tobacco: Former Cigarettes 1 43 1 961 - 2004 Passive Smoke Exposure: Never Smokeless Tobacco: Never [...] Description 01/15/2024 10:00 AM EST Ancillary Procedure [facility] [address] [place] [address] 01/15/2024 11:00 AM EST Consult [facility] Medicine Specialties [address] [place] [address] Ida Nayak PA [address] [place] [address] 06/19/2024 11:00 AM EDT Appointment [facility] Radiation [address] [facility] [place] [id number] Leandro Seaman MD [address] [address] documented as of this encounter Visit Diagnoses Not on filedocumented in this encounter Additional Health Concerns Assessment Noted Time A fall risk assessment has been complete d for the patient 08/21/2023 3:49 PM EDT A Body Mass Index follow-up plan has been documented for the patient 08/21/2023 4:31 PM EDT documented as of this encounter Care Teams Highway Maintainer Relationship Specialty Start Date End Date Carl Tate DO [address] [place] [address] PCP - General 04/17/23 Leandro Seaman MD [address] [place] [phone] Consulting Physician Radiation Oncology 07/30/21 Carl Gaffney MD [address] [place] [address] Referring Physician 05/12/23 documented as of this encounter
--- OUTSIDE RECORDS SUMMARY | 2024-01-11 09:09 | XMS_ITS | Encounter Summary ---
Author Organization Healthcare Address [address] [id number] Care Team Providers Care Optical Systems Engineer Name Role Phone Leandro Seaman MD Unavailable [phone] Carl Tate DO Primary Care Provider [phone] Carl Gaffney MD Unavailable [phone] Encounter Details Date Type Department Care Team (Late st Contact Info) Description 05/19/2023 Telephone [facility] Cardi[facility]acic [address], [address] [place] [address] Ester Neff RN [id number] [address] [place] [address] Social History Tobacco Use Types Packs/Day Years Used Date Smoking Tobacco: Former Cigarettes 1 43 1 961 - 2004 Smokeless Tobacco: Never Alcohol Use Standard Drinks/Week Comments Yes 0 (1 standard drink = 0.6 oz pur e alcohol) beer once a week Sex and Gender Information Value Date Recorded Sex Assigned at Male 07/30/2020 10:04 AM EDT Legal Sex Male 8:03 PM EDT Gender Identity Male 07/30/2020 10:04 AM EDT Sexual Orientation Straight 07/30/2020 10 :04 AM EDT documented as of this encounter Miscellaneous Notes * Telephone Encounter - Ester Neff RN - 05/19/2023 10:25 AM EDT Pt called with concerns of pain between shoulder blades and feeling SOA; onset about the same time.Denies swelling, cough. Taking acetaminophen, oxycodone, and methocarbamol as scheduled. Has not been weighing as scale is not functioning, Advised pt to weigh self daily and call for wt gain 2lbs 2 consecutive days, worsening SOA, swelling. Reviewed with JOSEFINA Up> pt to increase Robaxin to 1000mg Pt updated, pt then stated he has not been taking Oxycodone; advised to try oxycodone with methocarbamol 500mg and acetaminophen before increasing dose of Methocarbamol. Pt verbalized understanding and agreed to POC documented in this encounter Plan of Treatment Upcoming Encounters Date Type Department Care Team (Late st Contact Info) Description 01/15/2024 10:00 AM EST Ancillary Procedure [facility] Medicine Specialties [address] [place] [address] 01/15/2024 11:00 AM EST Consult [facility] Medicine Specialties [address] [place] [address] Ida Nayak PA [address] [place] [address] 06/19/2024 11:00 AM EDT Appointment [facility] [id number] [place] [address] Leandro Seaman MD [address] [place] [phone] documented as of this encounter Visit Diagnoses Not on filedocumented in this encounter Additional Health Concerns Assessment Noted Time A fall risk assessment has been complete d for the patient 05/04/2023 9:45 AM EDT A Body Mass Index follow-up plan has been documented for the patient 05/16/2023 10:45 AM EDT documented as of this encounter Care Teams Optical Systems Engineer Relationship Specialty Start Date End Date Carl Tate DO [address] [place] [address] PCP - General 04/17/23 Leandro Seaman MD [address] [place] [address] [address] [place] [address] Consulting Physician Radiation Oncology 07/30/21 Carl Gaffney MD [address] [place] [address] Referring Physician 05/12/23 documented as of this encounter
--- OUTSIDE RECORDS SUMMARY | 2024-01-11 09:09 | XMS_ITS | Encounter Summary ---
Author Organization Healthcare Address [address] [place] [address] Care Team Providers Care Apprentice Painter Hand Name Role Phone Leandro Seaman MD Unavailable [phone] Carl Tate DO Primary Care Provider [phone] Carl Gaffney MD Unavailable [phone] Encounter Details Date Type Department Care Team (Late st Contact Info) Description 05/19/2023 Orders Only [facility] Cardiothoracic [address], [address] [place] [address] Cj Valles, PA [address] [place] [address] Social History Tobacco Use Types Packs/Day Years [...] Description 01/15/2024 10:00 AM EST Ancillary Procedure [facility] Medicine Specialties [address] [place] [address] 01/15/2024 11:00 AM EST Consult [facility] Medicine Specialties [address] [place] [address] Ida Nayak PA [address] [place] [address] 06/19/2024 11:00 AM EDT Appointment [facility] Radiation [address] [facility]. [id number] [place] [phone] Leandro Seaman MD [address] [place] [address] documented as of this encounter Visit Diagnoses Not on filedocumented in this encounter Additional Health Concerns Assessment Noted Time A fall risk assessment has been complete d for the patient 05/04/2023 9:45 AM EDT A Body Mass Index follow-up plan has been documented for the patient 05/16/2023 10:45 AM EDT documented as of this encounter Care Teams Apprentice Painter Hand Relationship Specialty Start Date End Date Carl Tate DO [address] [place] [phone] PCP - General 04/17/23 Leandro Seaman MD [address] [place] [phone] Consulting Physician Radiation Oncology 07/30/21 Carl Gaffney MD [address] [place] [address] Referring Physician 05/12/23 documented as of this encounter
--- OUTSIDE RECORDS SUMMARY | 2024-01-11 09:09 | XMS_ITS | Encounter Summary ---
Author Organization [facility] Address [address] [place] [address] Care Team Providers Care Garage Laborer Name Role Phone Leandro Seaman MD Unavailable [phone] Carl Tate DO Primary Care Provider [phone] Carl Gaffney MD Unavailable [phone] Encounter Details Date Type Department Care Team (Latest Contact Info) Description 09/01/2023 Travel Social History Tobacco Use Types Packs/Day [...] Description 01/15/2024 10:00 AM EST Ancillary Procedure [facility] Medicine Specialties [address] [place] [address] 01/15/2024 11:00 AM EST Consult [facility] Medicine [facility]ties [address] [place] [address] Ida Nayak PA [address] [place] [address] 06/19/2024 11:00 AM EDT Appointment [facility] Rad[facility] [address] [facility] [id number] [place] [phone] Leandro Seaman MD [address] [facility] [address] [place] [address] documented as of this encounter Visit Diagnoses Not on filedocumented in this encounter Additional Health Concerns Assessment Noted Time A fall risk assessment has been complete d for the patient 08/30/2023 8:54 AM EDT A Body Mass Index follow-up plan has been documented for the patient 09/02/2023 10:44 AM EDT documented as of this encounter Care Teams Garage Laborer Relationship Specialty Start Date End Date Carl Tate DO [address] [place] [address] PCP - General 04/17/23 Leandro Seaman MD [address] [place] [address] Consulting Physician Radiation Oncology 07/30/21 Carl Gaffney MD [address] [place] [address] Referring Physician 05/12/23 documented as of this encounter
--- OUTSIDE RECORDS SUMMARY | 2024-01-11 09:09 | XMS_ITS | Encounter Summary ---
Author Organization [facility] Address [address] [place] [address] Care Team Providers Care Gate Tender Name Role Phone Leandro Seaman MD Unavailable [phone] Carl Tate DO Primary Care Provider [phone] Carl Gaffney MD Unavailable [phone] Reason for Referral * Consultation (Routine) - Closed Specialty Diagnoses / Procedures Referred By Contac t Referred To Contact Pulmonology Diagnoses 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) Pennie Pittman APRN, DNP [address] [address] Phone: tel: fax: Ilir Carpenter MD [address] [place] [address] Phone: tel: fax: Referral ID Status Reason Start Date Expiration Date V isits Requested Visits Authorized [id number] Closed Specialty Services Required 07/17/2023 01/15/2025 1 1 * Imaging (Routine) - Pending Review Specialty Diagnoses / Procedures Referred By Contac t Referred To Contact Radiology Diagnoses 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) Procedures CT Chest w IV Contrast Pennie Pittman APRN, DNP [address] [phone] Phone: tel: fax: Referral ID Status Reason Start Date Expiration Date V isits Requested Visits Authorized [id number] Pending Review 07/17/2023 01/15/2025 1 1 Reason for Visit * Reason Comments Follow-up Encounter Details Date Type Department Care Team (Latest Contact Info) Description 07/17/2023 9:30 AM EDT - 07/17/2023 11:59 PM EDT Hospital Encounter [facility] Radiation [id number] [place] [address] Leandro Seaman MD [address] [facility] [address] [place] [phone] 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) (Primary Dx) Discharge Disposition: Still a Patient Social History Tobacco Use Types Packs/Day Years Used Date Smoking Tobacco: Former Cigarettes 1 43 1 961 - 2004 Smokeless Tobacco: Never Tobacco Cessation:Counseling Given: Not Answered Alcohol Use [...] Sign Reading Time Taken Comments Blood Pressure 103/67 07/17/2023 9:44 AM EDT Pulse 90 07/17/2023 9:44 AM EDT Temperature - - Respiratory Rate 18 07/17/2023 9:44 AM EDT Oxygen Saturation 96% 07/17/2023 9:44 AM EDT Inhaled Oxygen Concentration - - Weight 72.4 kg (159 lb 9.8 oz) 07/17/2023 9:44 A M EDT Height - - Body Mass Index 24.27 05/13/2023 9:00 AM EDT documented in this encounter Medications at Time [...] syringe 1 milliliter(s) subcutaneous every 6 months Probiotic Product (PROBIOTIC BLEND PO) Take 1 tablet by mouth As Directed (Take on Monday, , and Monday). spironolactone (Aldactone) 25 MG tablet 1 tablet (25 mg). //Sat 05/19/2020 Tiotropium [place] Monohydrate (Spiriva Respimat) 2.5 MCG/ACT inhaler Inhale 2 puffs 1 (one) time each day. acetaminophen (Tylenol) 325 MG tablet Take 2 tablets (650 mg) by mouth every 6 (six) hours. 100 tablet 05/16/2023 4 methocarbamol (Robaxin) 500 MG tablet Take 2 tablets (1,000 mg) by mouth 4 (four) times a day for 10 days. 80 tablet 05/19/2023 4 metoprolol tartrate (Lopressor) 25 MG tablet Take 1 tablet (25 mg) by mouth 2 (two) times a day. 60 tablet 2 05/16/2023 4 documented as of this encounter Miscellaneous Notes * Progress Notes - Pennie Pittman, MIGRANT LEADER, DNP - 07/17/2023 10:00 AM EDT Radiation Oncology Follow Up Patient Name: Carlo Noriega Date of : 1945 77 y.o. Encounter Date: 07/17/2023 Carlo Noriega was seen today at the [facility] in a 3 month followup. He presents today to discuss follow-up in his cancer care. Treatment Diagnosis and Cancer Staging Malignant neoplasm [...] NOVOSTE for stent restenosis completed 12/2021 at [facility] ([facility] INTERVAL HISTORY: Carlo Noriega reports generally doing well. He has recent cardiac stents x 2 on 05/12/23. No complaints today in clinic. REVIEW OF SYSTEMS: A 14-point review of systems obtained and negative except as above. KPS: 90 - Able to carry on normal activity; minor signs or symptoms of disease. CURRENT OUTPATIENT MEDICATIONS: Medications reviewed. ALLERGIES: No Known Allergies PHYSICAL EXAM: Visit Vitals BP 103/67 Pulse 90 Resp 18 Wt 72.4 kg (159 lb 9.8 oz) SpO2 96% BMI 24.27 kg/m?? Smoking Status Former BSA 1.86 m?? Patient appears comfortable, seated in NAD Vitals reviewed. Oriented X3, alopecic CN's II-XII appear grossly normal No obvious adenopathy in neck No back pain or other palpable pain No crackles, wheezes or respiratory distress No peripheral edema Strength/sensation of extremities appears normal IMAGING: Dr Seaman and I independently reviewed images and results. 07/17/23 CT CHEST W IV CONTRAST Narrative & Impression CLINICAL INDICATION: 77-year-old male with non-small cell lung cancer (NSCLC), non-metastatic, assess treatment response TECHNIQUE: Multiple CT helical images were obtained from thoracic inlet through upper abdomen with administration of IV contrast. 100 mL of Omnipaque-300 were administered intravenously. Total DLP (Dose-Length Product): 249.22 mGy.cm. Please note: The reported value represents the total of one or more individual components during the CT acquisition on this date and at this time, and as such, the same value may appear in more than one CT report depending on the interpreting/reporting physicians. COMPARISON: CT chest, 04/17/2023 FINDINGS: Mediastinum and Pleura: No enlarged mediastinal or hilar lymph nodes. Redemonstrated trace pericardial effusion. New small left pleural effusion. Severe trivessel calcific atherosclerotic disease. Lungs: Similar narrowing of the left mainstem bronchus and distal left pulmonary artery, consistentwith postradiation fibrosis. Increased thickness of left perihilar paramediastinal soft tissue density, measure up to 1.6 cm in thickness anteriorly (series 2 image 29), previously up to 1.2 cm and up to 8.2 cm in AP dimension, previously up to 7.8 cm. Remaining central airways are patent. Bilateral upper lobe predominant centrilobular emphysema. Stable small nodularity in the right apex (series 2 image 25) Upper Abdomen: Surgically absent gallbladder. Unchanged bilateral adrenal nodules. Unchanged left renal cyst. Musculoskeletal: Prior sternotomy. No suspicious lytic or sclerotic lesions. IMPRESSION: Interval increase in left upper lobe paramediastinal soft tissue thickening. Correlation with PET/CT or short-term CT follow-up to exclude recurrent disease is recommended. CRITICAL RESULT: No. COMMUNICATION: Per this written report. By electronically signing this report, I, the attending physician, attest that I have personally reviewed the images/data for the above examination(s) and agree with the final edited report. Drafted by Jax Ravi MD on 07/17/2023 9:03 AM Final report signed by Lupe Zelaya MD on 07/17/2023 9:41 AM ASSESSMENT AND PLAN: Carlo Noriega is a very pleasant 77 y.o. year-old male with a prior diagnosis as above. Mr. Noriega is doing well clinically, no acute respiratory complaints. Dr Seaman discussed options on how to approach interval changes on imaging and stressed to patient the interval changes do not seemto be be new or progression of disease. Dr Seaman's recommendation is to have Dr Carpenter to give his opinion on the recent interval changes and then decide next steps in regards. Questions answered. Mr Patel is in agreement with this plan. We will still schedule patient for 3 month f/u with scan. -RTC in [address] Seaman with repeat CT Chest. -Return to Dr Carpenter to get his input on recent CT changes. Orders Placed This Encounter Procedures CT Chest w IV Contrast Ambulatory referral to Pulmonology Future Appointments Date Time Provider Department Center 07/17/2023 8:[address] 3 [facility] 07/17/2023 10:00 AM Leandro Seaman MD RO [facility] [place] He will continue to follow with his other healthcare providers in the interim as scheduled. Thank you for the opportunity to participate in the care of the patient. Please contact our department withany questions. Total time 30 minutes, reviewing his treatment plans, previous and current CT and in discussion with the patient. Sincerely, Pennie Pittman DNP, APRN, RANGE R[facility] Radiation Medicine MICHAEL Cosigned by Leandro Seaman MD at 07/17/2023 1:48 PM EDT Associated attestation - Leandro Seaman MD - 07/17/2023 1:48 PM EDT I attest to being involved in providing substantive part of the medical decision making in patient care. documented in this encounter Plan of Treatment Upcoming Encounters Date Type Department Care Team (Late st Contact Info) Description 01/15/2024 10:00 AM EST Ancillary Procedure [facility] Medicine Specialties [address] [place] [address] 01/15/2024 11:00 AM EST Consult [facility] Medicine Specialties [address] [place] [phone] Ida Nayak PA [address] [place] [address] 06/19/2024 11:00 AM EDT Appointment [facility] Radiation [address] [facility] [id number] [place] [address] Leandro Seaman MD [address] [place] [phone] Scheduled Orders Name Type Priority Associated Diagnoses Orde r Schedule CT Chest w IV Contrast Imaging Routine 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) Expected: 10/17/2023 (Approximate), Expires: 01/16/2024 Scheduled Referrals Name Type Priority Associated Diagnoses Order Schedule Ambulatory referral to Pulmonology Outpatient Referral Routine 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) Expected: 07/17/2023 (Approximate), Expires: 01/15/2025 documented as of this encounter Visit Diagnoses Diagnosis 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)- Primary documented in this encounter Additional Health Concerns Assessment Noted Time A fall risk assessment has been complete d for the patient 07/17/2023 9:46 AM EDT A Body Mass Index follow-up plan has been documented for the patient 05/25/2023 2:04 PM EDT documented as of this encounter Care Teams Gate Tender Relationship Specialty Start Date End Date Carl Tate DO [address] [place] [address] PCP - General 04/17/23 Leandro Seaman MD [address] [place] [phone] Consulting Physician Radiation Oncology 07/30/21 Carl Gaffney MD [address] [place] [address] Referring Physician 05/12/23 documented as of this encounter
--- OUTSIDE RECORDS SUMMARY | 2024-01-11 09:09 | XMS_ITS | Encounter Summary ---
Author Organization [facility] Address [address] [place] [address] Care Team Providers Care Sample Examiner Name Role Phone Leandro Seaman MD Unavailable [phone] Carl Tate DO Primary Care Provider [phone] Carl Gaffney MD Unavailable [phone] Encounter Details Date Type Department Care Team (Latest Contact Info) Description 08/30/2023 Travel Social History Tobacco Use Types Packs/Day [...] Description 01/15/2024 10:00 AM EST Ancillary Procedure [facility] Medicine Specialties [address] [place] [address] 01/15/2024 11:00 AM EST Consult [facility] Medicine Specialties [address] [place] [address] Ida Nayak PA [address] [place] [address] 06/19/2024 11:00 AM EDT Appointment [facility] Radiation [address] [facility] [id number] [place] [phone] Leandro Seaman MD 800 [facility] [address] [place] [address] documented as of this encounter Visit Diagnoses Not on filedocumented in this encounter Additional Health Concerns Assessment Noted Time A fall risk assessment has been complete d for the patient 08/30/2023 8:54 AM EDT A Body Mass Index follow-up plan has been documented for the patient 09/02/2023 10:44 AM EDT documented as of this encounter Care Teams Sample Examiner Relationship Specialty Start Date End Date Carl Tate DO [address] [place] [address] PCP - General 04/17/23 Leandro Seaman MD [address] [place] [phone] Consulting Physician Radiation Oncology 07/30/21 Carl Gaffney MD [address] [place] [address] Referring Physician 05/12/23 documented as of this encounter
--- OUTSIDE RECORDS SUMMARY | 2024-01-11 09:09 | XMS_ITS | Encounter Summary ---
Author Organization [facility] Address [address] [place] [address] Care Team Providers Care Process Control Operator Name Role Phone Leandro Seaman MD Unavailable [phone] Carl Tate DO Primary Care Provider [phone] Carl Gaffney MD Unavailable [phone] Reason for Referral * Imaging (Routine) - Closed Specialty Diagnoses / Procedures Referred By Contac t Referred To Contact Diagnoses 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) Procedures PET/CT FDG Skull Base To Mid Thigh Naomi Meier MD [facility] [address] [address] Phone: tel: fax: [facility] () [address] [place] [address] Phone: tel: fax: Referral ID Status Reason Start Date Expiration Date Visits Re quested Visits Authorized [id number] Closed 08/30/2023 02/28/2025 2 2 Reason for Visit * Imaging (Routine) - Closed Specialty Diagnoses / Procedures Referred By Contac t Referred To Contact Diagnoses 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) Procedures PET/CT FDG Skull Base To Mid Thigh Naomi Meier MD [address] [facility] [address] [place] [address] Phone: tel: fax: [facility] () [address] [place] [address] Phone: tel: fax: Referral ID Status Reason Start Date Expiration Date Visits Re quested Visits Authorized [id number] Closed 08/30/2023 02/28/2025 2 2 Encounter Details Date Type Department Care Team (Latest Contact Info) Description 09/04/2023 1:38 PM EDT Hospital Encounter [facility] Radiology [address] [place] [id number] Malignant neoplasm of upper lobe of left [...] 1 (one) time each day. 08/02/2023 Tiotropium [place] Monohydrate (Spiriva Respimat) 2.5 MCG/ACT inhaler Inhale 2 puffs 1 (one) time each day. documented as of this encounter Plan of Treatment Upcoming Encounters Date Type Department Care Team (Late st Contact Info) Description 01/15/2024 10:00 AM EST Ancillary Procedure [facility] Medicine Specialties [address] [place] [address] 01/15/2024 11:00 AM EST Consult [facility] Medicine Specialties [address] [place] [address] Ida Nayak PA [address] [place] [address] 06/19/2024 11:00 AM EDT Appointment [facility] Radiation [id number] [place] [address] Leandro Seaman MD [address] [place] [phone] documented as of this encounter Procedures Procedure Name Priority Date/Time Associated Diagnosis Comments PET/CT FDG SKULL BASE TO MID THIGH Routine 09/04/2023 4:00 PM EDT 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) POCT GLUCOSE METER UNSOLICITED RESULTS Routine 09/04/2023 2:24 PM EDT documented in this encounter Results * PET/CT FDG Skull Base To Mid Thigh (09/04/2023 4:00 PM EDT) Anatomical Region Laterality Modality Nuclear Medicine Impressions 09/05/2023 11:41 AM EDT 1. 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 2. No evidence of metabolically active recurrent or metastatic disease. 3. Intense focal FDG activity fusing to the distal esophagus, likely representing reflux disease. Upper GI endoscopy recommended for further evaluation. CRITICAL RESULT: No. COMMUNICATION: Per this written report. By electronically signing this report, I, the attending physician, attest that I have personally reviewed the images/data for the above examination(s) and agree with the final edited report. Drafted by Placido Nicholas MD on 09/05/2023 10:05 AM Final report signed by Magaly Cotton MD on 09/05/2023 11:41 AM Narrative 09/05/2023 11:41 AM EDT CLINICAL INDICATION: Non-small cell lung cancer (NSCLC), staging. History of left upper lobe adenocarcinoma, diagnosed in 2015, status post chemotherapy in 2014. Patient had recurrence in 2021 treated with radiation radiation completed September 06, 2021. CT performed in April 2023 demonstrated pleural thickening in the mediastinal and pleural aspect. Evaluation for further treatment planning. TECHNIQUE: Preparation: Last oral intake (except water) on September 03, 2023 at 6:00 PM. Diabetic: No. ?? Blood glucose at time of FDG administration: 104 mg/dL. Radiopharmaceutical: 11.18 mCi of F-18 FDG administered intravenously at right antecubital fossa at 2:28 PM. Incubation interval: 80 minutes. Oral contrast: Not applicable. Positioning: Arms raised. PET/CT scanner: Siemens Biograph 40 mCT. PET/CT acquisition: [id number]-thighs. Standardized uptake value (SUV): Corrected for body weight only. CT: Low-dose, xkc-zaipyj-jroe, without intravenous contrast. TOTAL DLP (Dose Length Product): 838.19 mGy cm. COMPARISON/CORRELATION: PET/CT performed August 11, 2021, June 25, 2015, January 05, 2015, October 09, 2014, and June 18, 2014. Correlation with CT chest performed July 17, 2023, and April 17, 2023. FINDINGS: Technical quality: Diagnostic. Measurements: Unless otherwise specified, all SUVs refer to maximum value in the target (mSUV). Mean SUV liver: 2.81. Head and Neck: No suspicious hypermetabolic activity in the head or neck. No cervical adenopathy. Unremarkable thyroid gland. Clear paranasal sinuses and mastoid air-cells. Chest: The questionable left paramediastinal suprahilar pleural [...] No pleural effusion, pericardial effusion or pneumothorax. Abdomen and Pelvis: No suspicious hypermetabolic activity in the abdomen or pelvis. Solid Abdominal Organs: No focal hypermetabolic activity in the liver significantly greater than the heterogeneous physiologic uptake. Unremarkable noncontrast appearance of the liver. Surgically absent gallbladder. No hydronephrosis. 3.9 cm left upper pole nonavid cyst. Small 13 mm hypoattenuating left adrenal adenoma (mean HU6.4), image 176, stable compared to prior scan. Unremarkable spleen. No suspicious adrenal masses. No suspicious pancreatic findings. GI Tract/Mesentery/Peritoneum: Intense focal DG activity fusing to the distal esophagus maximum SUV 8 image 160, likely representing reflux disease. Upper GI endoscopy recommended. Physiologic bowel activity, without suspicious focal FDG uptake. The large and small bowel appear normal in caliber. No suspicious peritoneal/mesenteric findings. Lymph Nodes: No pathologically enlarged or hypermetabolic lymph nodes in the abdomen or pelvis. Pelvic Viscera: Unremarkable. Vasculature: Normal caliber of the abdominal aorta. Severe calcific atherosclerosis of the abdominal aorta. Free Fluid: No ascites or drainable fluid collection. Skeleton and Soft Tissues: No suspicious hypermetabolic activity in the visualized osseous structures. No aggressive osseous lesions. No suspicious soft tissue foci. Intact sternotomy wires with intense FDG uptake along sternotomy line, consistent with recent CABG. Multilevel degenerative changes. Procedure Note Magaly Garcia MD - 09/05/2023 CLINICAL INDICATION: Non-small cell lung cancer (NSCLC), staging. History of left upper lobe adenocarcinoma, diagnosed in 2014, status postchemotherapy in 2014. Patient had recurrence in 2021 treated withradiation radiation completed September 06, 2021. CT performed in [place] thickening in the mediastinal and pleural aspect.Evaluation for further treatment planning. TECHNIQUE: Preparation: Last oral intake (except water) on September 03, 2023 at 6:00PM. Diabetic: No. Blood glucose at time of FDG administration: 104 mg/dL. Radiopharmaceutical: 11.18 mCi of F-18 FDG administered intravenously atright antecubital fossa at 2:28 PM. Incubation interval: 80 minutes. Oral contrast: Not applicable. Positioning: Arms raised. PET/CT scanner: Siemens Biograph 40 mCT. PET/CT acquisition: Wyhmxq-nd-yjf-thighs. Standardized uptake value (SUV): Corrected for body weight only. CT: Low-dose, [id number]-uptfjd-wxqs, without intravenous contrast. TOTAL DLP (Dose Length Product): 838.19 mGy cm. COMPARISON/CORRELATION: PET/CT performed August 11, 2021, June 25, 2015, January 05, 2015, 2014, and June 18, 2014. Correlation with CT chest performed July, and April 17, 2023. FINDINGS: Technical quality: Diagnostic. Measurements: Unless otherwise specified, all SUVs refer to maximum valuein the target (mSUV). Mean SUV liver: 2.81. Head and Neck: No suspicious hypermetabolic activity in the head or neck. No cervical adenopathy. Unremarkable thyroid gland. Clear paranasal sinuses and mastoid air-cells. 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 No suspicious metabolically active pleural or mediastinal mass. No suspicious mediastinal, hilar, or axillary adenopathy. Multiple non-FDG avid subcentimeter nodules in the right upper lobe, andright middle lobe, for example: *On series 4 image 109, there are 2 adjacent nodules which measure 7 mmand 6 mm. *The right middle lobe a 4 mm nodule is present on series 4 image 134,without significant FDG activity. Surgical changes compatible with recent CABG. Bilateral centrilobular emphysematous changes. Normal caliber of the thoracic aorta. Moderate calcific atherosclerosis of the thoracic aorta No pleural effusion, pericardial effusion or pneumothorax. Abdomen and Pelvis: No suspicious hypermetabolic activity in the abdomen or pelvis. Solid Abdominal Organs: No focal hypermetabolic activity in the liver significantly greater thanthe heterogeneous physiologic uptake. Unremarkable noncontrast appearanceof the liver. Surgically absent gallbladder. No hydronephrosis. 3.9 cm left upper pole nonavid cyst. Small 13 mm hypoattenuating left adrenal adenoma (mean HU6.4), image 176,stable compared to prior scan. Unremarkable spleen. No suspicious adrenal masses. No suspiciouspancreatic findings. GI Tract/Mesentery/Peritoneum: Intense focal DG activity fusing to the distal esophagus maximum SUV 8image 160, likely representing reflux disease. Upper GI endoscopyrecommended. Physiologic bowel activity, without suspicious focal FDG uptake. The large and small bowel appear normal in caliber. No suspiciousperitoneal/mesenteric findings. Lymph Nodes: No pathologically enlarged or hypermetabolic lymph nodes inthe abdomen or pelvis. Pelvic Viscera: Unremarkable. Vasculature: Normal caliber of the abdominal aorta. Severe calcificatherosclerosis of the abdominal aorta. Free Fluid: No ascites or drainable fluid collection. Skeleton and Soft Tissues: No suspicious hypermetabolic activity in the visualized osseousstructures. No aggressive osseous lesions. No suspicious soft tissue foci. Intact sternotomy wires with intense FDG uptake along sternotomy line,consistent with recent CABG. Multilevel degenerative changes. 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 2.No evidence of metabolically active recurrent or metastatic disease. 3.Intense focal FDG activity fusing to the distal esophagus, likelyrepresenting reflux disease. Upper GI endoscopy recommended for furtherevaluation. CRITICAL RESULT: No. COMMUNICATION: Per this written report. By electronically signing this report, I, the attending physician, attestthat I have personally reviewed the images/data for the aboveexamination(s) and agree with the final edited report. Drafted by Placido Nicholas MD on 09/05/2023 10:05 AM Final report signed by Magaly Cotton MD on 09/05/2023 11:41 AM Naomi Meier MD IMG NM PROCEDURES Final R esult * (ABNORMAL) POCT glucose meter (09/04/2023 2:24 PM EDT) POCT Glucose 104(H) 74 - 99 mg/dL 09/04/2023 2:25 PM EDT [facility] Comment:Accuracy of a glucos e result obtained from a capillary whole blood specimen relies upon adequate, non-compromised capillary blood flow. If the capillary glucose result is not consistent with the patient's clinical signs and symptoms, glucose testing should be repeated with either an arterial or venous sample on the glucometer or sent to the main labortory for testing. Comment 09/04/2023 2:25 PM EDT [facility] [employer] Worker ID Estefania Painter 09/04/2023 2:25 PM EDT [facility] Device ID [id number] 09/04/2023 2:25 PM EDT [facility] Specimen Type POC Capillary 09/04/2023 2:25 PM EDT [facility] Blood Capillary blood specimen / Unknown 09/04/2023 2:24 PM EDT 09/04/2023 2:25 PM EDT us Generic Provider [facility] POINT OF CARE TEST DOCKED DEVICE UNSOLICITED RESULTS Final Result [facility] [address] [place] [id number] documented in this encounter Visit Diagnoses Diagnosis 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) documented in this encounter Administered Medications Inactive Administered Medications - up to 3 most recent administrations Medication Order MAR Action Action Date Dose Rate Site Fludeoxyglucose F 18 (FDG 18) radio-isotope injection 10 millicurie 10 millicurie, Intravenous, Once, 1 dose, On 09/04/23 at 1445, Routine, Imaging NM Protocol Orders Given 09/04/2023 2:28 PM EDT 11.18 millicuries Right Antecubital documented in this encounter Additional Health Concerns Assessment Noted Time A fall risk assessment has been complete d for the patient 08/30/2023 8:54 AM EDT A Body Mass Index follow-up plan has been documented for the patient 09/02/2023 10:44 AM EDT documented as of this encounter Care Teams Process Control Operator Relationship Specialty Start Date End Date Carl aTte DO [address] [place] [id number] PCP - General 04/17/23 Leandro Seaman MD [address] [place], [place] [address] [place] [address] Consulting Physician Radiation Oncology 07/30/21 Carl Gaffney MD [address] [place] [address] Referring Physician 05/12/23 documented as of this encounter
--- OUTSIDE RECORDS SUMMARY | 2024-01-11 09:09 | XMS_ITS | Encounter Summary ---
Author Organization [facility] Address [address] [id number] Care Team Providers Care Greensman Name Role Phone Leandro Seaman MD Unavailable [phone] Carl Tate DO Primary Care Provider [phone] Carl Gaffney MD Unavailable [phone] Encounter Details Date Type Department Care Team (Latest Contact Info) Description 05/25/2023 Travel Social History Tobacco Use Types Packs/Day [...] Description 01/15/2024 10:00 AM EST Ancillary Procedure [facility] Medicine Specialties [address] [place] [address] 01/15/2024 11:00 AM EST Consult [facility] Medicine Specialties [address] [place] [address] Nael, Ida L, PA [address] [place] [address] 06/19/2024 11:00 AM EDT Appointment [facility] Radiation [address] [facility] [id number] [place] [address] Leandro Seaman MD [address] [place] [address] documented as of this encounter Visit Diagnoses Not on filedocumented in this encounter Additional Health Concerns Assessment Noted Time A fall risk assessment has been complete d for the patient 05/25/2023 12:12 PM EDT A Body Mass Index follow-up plan has been documented for the patient 05/25/2023 2:04 PM EDT documented as of this encounter Care Teams Greensman Relationship Specialty Start Date End Date Carl Tate DO [address] [place] [phone] PCP - General 04/17/23 Leandro Seaman MD [address] [place] [address] Consulting Physician Radiation Oncology 07/30/21 Carl Gaffney MD [address] [place] [address] Referring Physician 05/12/23 documented as of this encounter
--- OUTSIDE RECORDS SUMMARY | 2024-01-11 09:09 | XMS_ITS | Encounter Summary ---
Author Organization [facility] Address [address] [id number] Care Team Providers Care General Internal Medicine Doctor Name Role Phone Leandro Seaman MD Unavailable [phone] Carl Tate DO Primary Care Provider [phone] Carl Gaffney MD Unavailable [phone] Encounter Details Date Type Department Care Team (Late st Contact Info) Description 08/31/2023 Telephone [facility] Neck & Respiratory [address] [place] [address] Naomi Meier MD [address] [facility] [address] [place] [address] Social History Tobacco Use Types [...] encounter Miscellaneous Notes * Telephone Encounter - Jasmine Soliz - 08/31/2023 9:02 AM EDT Patient Phone Message Reason for Call: Olya at [facility] called re: they do not do PET scans at their facility. Caller said ptis not yet aware that the order will be sent elsewhere. Best contact number and optimal time of day to reach caller: [phone] Note: Please do not reply to this message. Follow-up communication and further actions as a result of this message need to be communicated with the patient directly, if the patient is not active onMyChart. If the patient is active on MyChart, they will receive notification of the communication/outcome via [employer]. documented in this encounter Plan of Treatment Upcoming Encounters Date Type Department Care Team (Late st Contact Info) Description 01/15/2024 10:00 AM EST Ancillary Procedure [facility] Medicine Specialties [address] [place] [phone] 01/15/2024 11:00 AM EST Consult [facility] Medicine Specialties [address] [place] [address] Ida Nayak PA [address] [place] [address] 06/19/2024 11:00 AM EDT Appointment [facility] Radiation [id number] [place] [address] Leandro Seaman MD [address] [place] [phone] documented as of this encounter Visit Diagnoses Not on filedocumented in this encounter Additional Health Concerns Assessment Noted Time A fall risk assessment has been complete d for the patient 08/30/2023 8:54 AM EDT A Body Mass Index follow-up plan has been documented for the patient 09/02/2023 10:44 AM EDT documented as of this encounter Care Teams General Internal Medicine Doctor Relationship Specialty Start Date End Date Carl Tate DO [address] [place] [address] [id number] PCP - General 04/17/23 Leandro Seaman MD [address] [place] [address] [address] [place] [phone] Consulting Physician Radiation Oncology 07/30/21 Carl Gaffney MD [facility] [place] [address] Referring Physician 05/12/23 documented as of this encounter
--- OUTSIDE RECORDS SUMMARY | 2024-01-11 09:09 | XMS_ITS | Encounter Summary ---
Author Organization [facility] Address [address] [place] [address] Care Team Providers Care Roofing Subcontractor Name Role Phone Leandro Seaman MD Unavailable [phone] Carl Tate DO Primary Care Provider [phone] Carl Gaffney MD Unavailable [phone] Reason for Referral * Imaging (Routine) - Closed Specialty Diagnoses / Procedures Referred By Contac t Referred To Contact Diagnoses 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) Procedures PET/CT FDG Skull Base To Mid Thigh Naomi Meier MD [address] [address] Phone: tel: fax: [facility] () [address] [place] [address] Phone: tel: fax: Referral ID Status Reason Start Date Expiration Date Visits Re quested Visits Authorized [id number] Closed 08/30/2023 02/28/2025 2 2 Reason for Visit * Reason Comments New Patient * Consultation (Routine) - Closed Specialty Diagnoses / Procedures Referred By Contac t Referred To Contact Cardiothoracic Surgery Diagnoses 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) Ilir Carpenter MD [address] [place] [address] Phone: tel: fax: CARDIOTHORACIC SURGERY [address] [place] [address] Phone: tel: Referral ID Status Reason Start Date Expiration Date V isits Requested Visits Authorized [id number] Closed Specialty Services Required 08/21/2023 02/19/2025 1 1 Encounter Details Date Type Department Care Team (Late st Contact Info) Description 08/30/2023 9:30 AM EDT Office Visit Pav CC Head, Neck & Respiratory [address] [facility], 2nd [place] [address] Naomi Meier MD [address] [facility] [address] [place] [address] 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) Social History Tobacco Use Types Packs/Day Years Used Date Smoking Tobacco: Former Cigarettes 1 43.6 0 07/08/1959 - 07/08/2003 Passive Smoke Exposure: Never Smokeless Tobacco: Never Tobacco Cessation:Counseling Given: No Alcohol Use Standard Drinks/Week Comments Yes 0 [...] Sign Reading Time Taken Comments Blood Pressure 128/83 08/30/2023 8:47 AM EDT Pulse 82 08/30/2023 8:47 AM EDT Temperature 36.8 ??C (98.2 ??F) 08/30/2023 8:47 AM ED T Respiratory Rate 18 08/30/2023 8:47 AM EDT Oxygen Saturation 97% 08/30/2023 8:47 AM EDT Inhaled Oxygen Concentration - - Weight 69.3 kg (152 lb 12.5 oz) 08/30/2023 8:47 AM EDT Height 172.7 cm (5' 8 ) 08/30/2023 8:47 AM EDT Body Mass Index 23.23 08/30/2023 8:47 AM EDT documented in this encounter Miscellaneous Notes * Progress Notes - Connie Marlow PA - 08/30/2023 9:30 AM EDT Images from the original note were not included. [facility] Department of Surgery Section of Thoracic Surgery History & Physical Note Consulting MD: Dr. Ilir Carpenter Reason for Consultation/Chief complaint: LEROY adenocarcinoma History of Present Illness: Carlo Noriega is a 78 y.o. 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 Imaging was repeated in July 2023 that again showed pleural thickening, both on the mediastinal and pleural aspect. He was referred to Dr. Carpenter who felt there was an unclear target and may be difficult to reach given narrowing the the LEROY bronchus on imaging. Patient reports he has had some increased dyspnea on exertion, increase over the last 2 weeks. His cane flume chute operator put him on lasix and he thinks he has had some mild improvement. He also has a dry cough. No hemoptysis, weight loss, fevers, night sweats. 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 Past Surgical History: Past Surgical History: Procedure Laterality Date CARDIAC CATHETERIZATION CHOLECYSTECTOMY N/A Cholecystectomy from [facility] CORONARY ARTERY BYPASS GRAFT 05/12/2023 CABG x 2 - SVG to distal RCA, -Right internal mammary artery composite graft to vein distally to left anterior descending (Dr Pablo Mckeon) CORONARY STENT PLACEMENT 2021 PTCA with brachy therapy Cx KNEE SURGERY N/A Knee Surgery from [facility] OTHER SURGICAL HISTORY N/A Rt femoral stent > 20 years ago OTHER SURGICAL HISTORY 05/12/2023 double bypass RADIATION THERAPY Lt lung cancer 2014 and 2021 [facility] FRACTURE SURGERY Left pins Social History: Tobacco - former smoker, quit 2003 Alcohol - none Drugs - none Family Medical History: family history includes Diabetes in his mother; Heart disease in his mother; Hypertension in his mother; Lung cancer in his brother; Throat cancer in his brother. Allergies: No Known Allergies Home Medications: Current Outpatient Medications: albuterol 108 (90 Base) MCG/ACT inhaler, Inhale 2 puffs 4 (four) times a day if needed for wheezing., Disp: , Rfl: aspirin 81 MG chewable tablet, Chew 1 tablet (81 mg) 1 (one) time each day., Disp: , Rfl: atorvastatin (Lipitor) 80 MG tablet, Take 1 tablet (80 mg) by mouth every night., Disp: , Rfl: azelastine (Astelin) 0.1 % nasal spray, Administer 1 spray into each nostril 1 (one) time each day if needed for rhinitis. Use in each nostril as directed, Disp: , Rfl: clopidogrel (Plavix) 75 MG tablet, TAKE 1 TABLET BY MOUTH ONCE DAILY FOR ANTIPLATELET, Disp: , Rfl: denosumab (Prolia) 60 MG/ML solution prefilled syringe, 1 milliliter(s) subcutaneous every 6 months, Disp: , Rfl: metoprolol succinate XL (Toprol-XL) 25 MG 24 hr tablet, Take 1 tablet (25 mg) by mouth 1 (one) timeeach day., Disp: , Rfl: Probiotic Product (PROBIOTIC BLEND PO), Take 1 tablet by mouth As Directed (Take on Monday, , and Monday)., Disp: , Rfl: spironolactone (Aldactone) 25 MG tablet, 1 tablet (25 mg). //Mon, Disp: , Rfl: Stiolto Respimat 2.5-2.5 MCG/ACT aerosol solution inhaler, Inhale 2 Inhalations 1 (one) time each day., Disp: , Rfl: Tiotropium [place] Monohydrate (Spiriva Respimat) 2.5 MCG/ACT inhaler, Inhale 2 puffs 1 (one) time each day., Disp: , Rfl: acetaminophen (Tylenol) 325 MG tablet, Take 2 tablets (650 mg) by mouth every 6 (six) hours. (Patient not taking: Reported on 08/21/2023), Disp: 100 tablet, Rfl: 0 atorvastatin (Lipitor) 40 MG tablet, Take 1 tablet (40 mg) by mouth 1 (one) time each day., Disp: ,Rfl: furosemide (Lasix) 40 MG tablet, Take 1 tablet (40 mg) by mouth 1 (one) time each day., Disp: 30 tablet, Rfl: 0 methocarbamol (Robaxin) 500 MG tablet, Take 2 tablets (1,000 mg) by mouth 4 (four) times a day for 10 days., Disp: 80 tablet, Rfl: 0 metoprolol tartrate (Lopressor) 25 MG tablet, Take 1 tablet (25 mg) by mouth 2 (two) times a day. (Patient taking differently: Take 1 tablet (25 mg) by mouth 1 (one) time each day.), Disp: 60 tablet,Rfl: 2 ROS: General: no fevers or chills, no heat or cold intolerance, no subjective weight loss HEENT: no changes in vision, no sore throat, no changes in hearing, no tinnitus, no nasal drainage CV: no chest pain, no palpitations, no lightheadedness, no PND, no orthopnea, no LE swelling, no claudication Pulm: no shortness of breath, no cough, no hemoptysis GI: no nausea, no vomiting, no abdominal pain, no constipation, no diarrhea, no melena, no hematochezia, no dysphagia, no heartburn Skin: no rash Neuro: no numbness, no tingling, no headache, no difficulties with speech, no gait disturbance Heme: no easy bruising, no bleeding from the gums Endo: No polyuria or polydypsia Psych: no depression or anxiety Physical exam: Visit Vitals BP 128/83 (BP Location: Right arm) Pulse 82 Temp 36.8 ??C (98.2 ??F) (Oral) Ht 1.727 m (5' 8 ) Wt 69.3 kg (152 lb 12.5 oz) SpO2 97% BMI 23.23 kg/m?? General: alert and oriented, appropriate Lungs: CTA B, no wheezes or rhonchi Heart: RRR, no murmurs Abdomen: soft NT/ND, normal bowel sounds Lymph nodes: no palpable supraclavicular or cervical adenopathy Extremities: no peripheral edema Skin: no rash, no cyanosis and warm to touch Psychiatric: oriented to person/place/time and normal mood/affect Imaging: I independently visualized the imaging which includes: CT Chest 04/17/23: FINDINGS: Mediastinum and Pleura: No mediastinal or hilar adenopathy. No pleural effusion. Trace pericardial effusion. Severe trivessel coronary artery calcifications. Lungs: Redemonstrated centrilobular emphysema. Redemonstrated left perihilar soft tissue density, with slight narrowing of the bronchus and distal left pulmonary artery, consistent with postradiationfibrosis; oblique transverse dimension is increased, now 32 mm, increased from 26 mm as similar remeasured today, and extending to include the previously described left upper lobe 10 x 9 mm nodule. Additional small scattered pulmonary nodules. Upper Abdomen: No significant interval change in left larger than right adrenal nodules. Cholecystectomy clips. Left upper pole renal cyst is redemonstrated, 38 mm in maximum diameter. Musculoskeletal: No suspicious lytic or sclerotic lesion. IMPRESSION: Increased soft tissue density thickness now extends to include previously described nodule, concerning for interval progression. Recommend FDG PET CT and/or tissue sampling. Severe trivessel coronary artery calcifications; consider coronary CTA. CT chest 07/17/23: FINDINGS: Mediastinum and Pleura: No enlarged mediastinal [...] follow-up to exclude recurrent disease is recommended. Additional testing: none Assessment and Plan: Carlo Noriega is a 78 y.o. 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 Imaging reviewed and pleural thickening in both mediastinal and pleural aspects noted. Difficult to delineate whether this is secondary to malignancy vs postradiation fibrosis. Will plan to order PET scan to help guide decisionmaking for next steps. There is potential for increased FDG uptake with postradiation inflammation,but will also assess for any other areas of activity outside of known radiation territory. Will also help guide target areas if biopsy is warranted. If there is no increased FDG uptake, can feel moreconfident this is not malignant in nature and may be able to avoid any further workup. Will plan for same day return to clinic w/ PET scan. JOSEFINA Blair 08/30/23 8:58 AM Cosigned by Naomi Meier MD at 09/02/2023 10:43 AM EDT Associated attestation - Naomi Meier MD - 09/02/2023 10:43 AM EDT Attending Addendum: I reviewed with the PA, during the patient's visit about the patient's history, exam, diagnosis, and the plan of treatment. I reviewed all of the patient's prior records and testing. I interviewed and examined the patient personally. I agree with the plan of care as follows: fullness in the radiation scar and pleural thickening. Unclear if this is disease recurrence. I have recommended further evaluation with PET scan to assess for metastatic disease and to guide need/location of biopsy for diagnosis. If no extrathoracic disease, will likely plan for left VATS pleural biopsy. Return to clinicafter PET. Naomi Baugh MD tank builder helper Thoracic Surgery documented in this encounter Plan of Treatment Upcoming Encounters Date Type Department Care Team (Late st Contact Info) Description 01/15/2024 10:00 AM EST Ancillary Procedure [facility] Medicine Specialties [address], [address] [place] [address] 01/15/2024 11:00 AM EST Consult [facility] Medicine Specialties [address], [address] [place] [address] Ida Nayak, PA [address] [place] [address] 06/19/2024 11:00 AM EDT Appointment [facility] CC Radiation [address] [place] [address] Leandro Seaman MD [address] [place] [address] documented as of this encounter Results * PET/CT FDG Skull [...] upper lobe adenocarcinoma, diagnosed in 2014, status post chemotherapy in 2014. Patient had [...] scanner: Siemens Biograph 40 mCT. PET/CT acquisition: Zqiyea-ud-lgi-thighs. Standardized uptake value (SUV): Corrected for body weight only. CT: Low-dose, kes-jpkcbi-gyik, without intravenous contrast. TOTAL DLP (Dose Length [...] applicable. Positioning: Arms raised. PET/CT scanner: Siemens Pet Readygraph 40 mCT. PET/CT acquisition: [id number]-ct-nus-thighs. Standardized uptake value (SUV): Corrected for body weight only. CT: Low-dose, lhq-jnnjvk-goej, without intravenous contrast. 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) documented in this encounter Additional Health Concerns Assessment Noted Time A fall risk assessment has been complete d for the patient 08/30/2023 8:54 AM EDT A Body Mass Index follow-up plan has been documented for the patient 09/02/2023 10:44 AM EDT documented as of this encounter Care Teams Roofing Subcontractor Relationship Specialty Start Date End Date Carl Tate DO [address] [place] [address] PCP - General 04/17/23 Leandro Seaman MD [address] [place], [place] [address] [place] [address] Consulting Physician Radiation Oncology 07/30/21 Carl Gaffney MD [address] [place] [address] Referring Physician 05/12/23 documented as of this encounter
--- OUTSIDE RECORDS SUMMARY | 2024-01-11 09:09 | XMS_ITS | Encounter Summary ---
Author Organization [facility] Address [address] [id number] Care Team Providers Care Deputy Program Manager Name Role Phone Leandro Seaman MD Unavailable [phone] Carl Tate DO Primary Care Provider [phone] Carl Gaffney MD Unavailable [phone] Encounter Details Date Type Department Care Team (Late st Contact Info) Description 08/22/2023 Telephone Pav CC Head, Neck & Respiratory [address]nd [place] [address] Naomi Meier MD [address] [facility] [address] [place] [address] Social History Tobacco Use Types [...] Description 01/15/2024 10:00 AM EST Ancillary Procedure [facility] Medicine Specialties [address] [place] [address] 01/15/2024 11:00 AM EST Consult [facility] Medicine Specialties [address], [address] [place] [address] Ida Nayak PA [address] [place] [address] 06/19/2024 11:00 AM EDT Appointment P[facility] CC Radiation [address] [facility]. [address] [place] [address] Leandro Seaman MD [id number] [place] [address] documented as of this encounter Visit Diagnoses Not on filedocumented in this encounter Additional Health Concerns Assessment Noted Time A fall risk assessment has been complete d for the patient 08/21/2023 3:49 PM EDT A Body Mass Index follow-up plan has been documented for the patient 08/21/2023 4:31 PM EDT documented as of this encounter Care Teams Deputy Program Manager Relationship Specialty Start Date End Date Carl Tate DO [address] [place] [id number] PCP - General 04/17/23 Leandro Seaman MD [address] [place], [place] [address] [place] [address] Consulting Physician Radiation Oncology 07/30/21 Carl Gaffney MD [address] [place] [address] Referring Physician 05/12/23 documented as of this encounter
--- OUTSIDE RECORDS SUMMARY | 2024-01-11 09:09 | XMS_ITS | Encounter Summary ---
Author Organization [facility] Address [address] [place] [address] Care Team Providers Care Department Clerk Name Role Phone Leandro Seaman MD Unavailable [phone] Carl Tate DO Primary Care Provider [phone] Carl Gaffney MD Unavailable [phone] Encounter Details Date Type Department Care Team (Late st Contact Info) Description 08/14/2023 Telephone Radiology Virtual Dept. [address] [place] [address] Latricia Benavides Social History Tobacco Use Types Packs/Day Years [...] Description 01/15/2024 10:00 AM EST Ancillary Procedure [facility] Medicine Specialties [address], [address] [place] [address] 01/15/2024 11:00 AM EST Consult [facility] Medicine Specialties [address], [address] [place] [address] Ida Nayak, PA [address] [place] [address] 06/19/2024 11:00 AM EDT Appointment [facility] CC Radiation 800 [facility] [address] [place] [address] Leandro Seaman MD 800 [facility] [address] [place] [address] documented as of this encounter Visit Diagnoses Not on filedocumented in this encounter Additional Health Concerns Assessment Noted Time A fall risk assessment has been complete d for the patient 07/17/2023 9:46 AM EDT A Body Mass Index follow-up plan has been documented for the patient 05/25/2023 2:04 PM EDT documented as of this encounter Care Teams Department Clerk Relationship Specialty Start Date End Date Carl Tate DO [address] [place] [address] PCP - General 04/17/23 Lenadro Seaman MD [address] [address] Consulting Physician Radiation Oncology 07/30/21 Carl Gaffney MD [address] [place] [address] Referring Physician 05/12/23 documented as of this encounter
--- OUTSIDE RECORDS SUMMARY | 2024-01-11 09:09 | XMS_ITS | Encounter Summary ---
Author Organization [facility] Address [address] [id number] Care Team Providers Care General Farmworker Name Role Phone Leandro Seaman MD Unavailable [phone] Carl Tate DO Primary Care Provider [phone] Carl Gaffney MD Unavailable [phone] Encounter Details Date Type Department Care Team (Late st Contact Info) Description 05/24/2023 Telephone [facility] Cardiothoracic [address] [place] [address] Ester Neff, RN [facility] LUNG [id number] [address] [place] [address] Social History Tobacco Use Types [...] Telephone Encounter - Ester Neff RN - 05/24/2023 10:31 AM EDT Transistion Care Nurse called to report increasing SOA with exertion and coughing up thick green mucous, diminished BS on right. Pt's r/s to 05/24 with labs and CXR documented in this encounter Plan of Treatment Upcoming Encounters Date Type Department Care Team (Late st Contact Info) Description 01/15/2024 10:00 AM EST Ancillary Procedure [facility] Medicine Specialties [address] [place] [address] 01/15/2024 11:00 AM EST Consult [facility] Medicine [facility] [address] [place] [address] Ida Nayak, PA [address] [facility] [address] [place] [address] 06/19/2024 11:00 AM EDT Appointment [facility] CC Radiation [address] [facility]. [id number] [place] [address] Leandro Seaman MD [address] [place] [address] [address] [place] [address] documented as of this encounter Visit Diagnoses Not on filedocumented in this encounter Additional Health Concerns Assessment Noted Time A fall risk assessment has been complete d for the patient 05/04/2023 9:45 AM EDT A Body Mass Index follow-up plan has been documented for the patient 05/16/2023 10:45 AM EDT documented as of this encounter Care Teams General Farmworker Relationship Specialty Start Date End Date Carl Tate DO [address] [place] [address] [id number] PCP - General 04/17/23 Leandro Seaman MD [address] [place] [address] [address] [place] [address] Consulting Physician Radiation Oncology 07/30/21 Carl Gaffney MD [facility] [place] [address] Referring Physician 05/12/23 documented as of this encounter
--- OUTSIDE RECORDS SUMMARY | 2024-01-11 09:09 | XMS_ITS | Encounter Summary ---
Author Organization Healthcare Address [address] [place] [address] Care Team Providers Care Sweater Operator Name Role Phone Leandro Seaman MD Unavailable [phone] Carl Tate DO Primary Care Provider [phone] Carl Gaffney MD Unavailable [phone] Reason for Referral * Consultation (Routine) - Closed Specialty Diagnoses / Procedures Referred By Contac t Referred To Contact Cardiothoracic Surgery Diagnoses 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) Ilir Carpenter MD [address] [place] [address] Phone: tel: fax: CARDIOTHORACIC SURGERY [address] [place] [address] Phone: tel: Referral ID Status Reason Start Date Expiration Date V isits Requested Visits Authorized [id number] Closed Specialty Services Required 08/21/2023 02/19/2025 1 1 Scheduling Instructions LEROY adenocarcinoma s/p radiation with recurrence s/p radiation, new thickening Reason for Visit * Reason Comments Malignant neoplasm of upper lobe of left lung Discuss CT results * Consultation (Routine) - Closed Specialty Diagnoses / Procedures Referred By Contac t Referred To Contact Pulmonology Diagnoses 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) Pennie Pittman R, RN OCCUPATIONAL, DNP [address] [place] [address] Phone: tel: fax: Ilri Carpenter MD [address] [place] [address] Phone: tel: fax: Referral ID Status Reason Start Date Expiration Date V isits Requested Visits Authorized [id number] Closed Specialty Services Required 07/17/2023 01/15/2025 1 1 Encounter Details Date Type Department Care Team (Late st Contact Info) Description 08/21/2023 4:00 PM EDT Office Visit [facility] [address] [place] [address] Ilir Carpenter MD [address] [place] [address] Malignant neoplasm of upper lobe of left [...] Sign Reading Time Taken Comments Blood Pressure 108/65 08/21/2023 3:42 PM EDT Pulse 75 08/21/2023 3:42 PM EDT Temperature 36.7 ??C (98 ??F) 08/21/2023 3:42 PM EDT Respiratory Rate - - Oxygen Saturation 95% 08/21/2023 3:42 PM EDT room air Inhaled Oxygen Concentration - - Weight 72.7 kg (160 lb 4.4 oz) 08/21/2023 3:42 P M EDT Height 172.7 cm (5' 7.99 ) 08/21/2023 3:42 PM ED T Body Mass Index 24.38 08/21/2023 3:42 PM EDT documented in this encounter Miscellaneous Notes * Progress Notes - Zoltan Melgoza MD - 08/21/2023 4:00 PM EDT Images from the original note were not included. Pulmonary & Critical Care Medicine INTERVENTIONAL PULMONARY NEW PATIENT NOTE Chief Complaint: LEROY adenocarcinoma History Of Present Illness: Carlo Noriega is a 78 y.o. 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 Overall doing well with no complaints. 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 He has no past medical history of Bladder cancer (CMS/HCC), Bone cancer (CMS/HCC), Brain cancer (CMS/HCC), Breast cancer (CMS/HCC), Cervical cancer (CMS/HCC), CHF (congestive heart failure) (CMS/HCC), Chronic kidney disease, Colon cancer (CMS/HCC), Crohn's disease (CMS/HCC), Diabetes mellitus (CMS/HCC), Disease of thyroid gland, Esophageal cancer (CMS/HCC), GERD (gastroesophageal reflux disease),HIV disease (CMS/HCC), Immune deficiency disorder (CMS/HCC), Leukemia (CMS/HCC), Liver disease, Lymphoma (CMS/HCC), Metastatic cancer (CMS/HCC), Myocardial infarction (CMS/HCC), Pancreatic cancer (CMS/HCC), Peptic ulceration, Personal history of irradiation, Prostate cancer (CMS/HCC), Seizures (CMS/HCC), Skin cancer, Small intestine cancer (CMS/HCC), Stomach cancer (CMS/HCC), Stroke (CMS/HCC), orTuberculosis. Surgical History: He has a past surgical history that includes Cholecystectomy (N/A); Other surgical history (N/A); Knee surgery (N/A); Cardiac catheterization; Coronary stent placement (2021); Wrist fracture surgery (Left); radiation therapy; Coronary artery bypass graft (05/12/2023); and Other surgical history (06/2023). Family History: Family History Problem Relation Name Age of Onset Heart disease Mother Diabetes Mother Hypertension Mother Lung cancer Brother Family history of lung cancer Throat cancer Brother Family history of throat cancer Anesthesia problems Neg Hx Malig Hyperthermia Neg Hx Social History: He reports that he quit smoking about 20 years ago. His smoking use included cigarettes. He startedsmoking about 63 years ago. He has a 43 pack-year smoking history. He has never been exposed to tobacco smoke. He has never used smokeless tobacco. He reports current alcohol use. He reports that he does not use drugs. Occupational History: Employer: No address on file. Allergies: Patient has no known allergies. Review of Systems Respiratory: Positive for shortness of breath. Cardiovascular: Negative for leg swelling. Objective: Physical Exam Constitutional: General: He is not in acute distress. Appearance: He is not toxic-appearing. Eyes: General: No scleral icterus. Conjunctiva/sclera: Conjunctivae normal. Cardiovascular: Rate and Rhythm: Normal rate and regular rhythm. Heart sounds: Normal heart sounds. No murmur heard. No friction rub. No gallop. Pulmonary: Effort: Pulmonary effort is normal. No respiratory distress. Breath sounds: No wheezing, rhonchi or rales. Musculoskeletal: Right lower leg: No edema. Left lower leg: No edema. Neurological: Mental Status: He is alert. Comments: Alert, responding to questions appropriately Psychiatric: Mood and Affect: Mood normal. Behavior: Behavior normal. Last Recorded Vitals: Blood pressure 108/65, pulse 75, temperature 36.7 ??C (98 ??F), temperature source Oral, height 1.727 m (5' 7.99 ), weight 72.7 kg (160 lb 4.4 oz), SpO2 95%. Assessment/Plan Diagnoses and all orders for this visit: 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) - Ambulatory referral to Pulmonology - Ambulatory referral to Thoracic Surgery; Future #LEROY Adenocarcinoma - previously stage 1 2014 s/p radiation as per HPI, recurrence 2021 s/p radiation - thickening/enlargement noted in 04/2023 and 07/2023 compared to 01/2023 Plan/Recommendations: - will refer to Thoracic Onc for further management - IP is available for procedure if it is felt warranted, but unclear target at this time and may bedifficult to reach bronchoscopically with obliterated LEROY bronchus on imaging RTC as needed. Approximately 34 minutes were spent reviewing and updating as necessary pertinent medical/family/social history, performing physical exam, clinically evaluating, interpreting labs/imaging, placing orders, documenting the encounter and counseling the patient. This does not include time spent with patient by nursing or clerical staff. Patient was discussed with attending physician, Dr. Carpenter. Zoltan Melgoza MD Fellow Physician, PGY-5 Pulmonary & Critical Care Medicine [phone] (Secure Chat preferred) Cosigned by Ilir Carpenter MD at 08/22/2023 12:02 PM EDT Associated attestation - Ilir Carpenter MD - 08/22/2023 12:02 PM EDT I saw and evaluated the patient with the resident/fellow. I discussed the case with the resident/fellow and agree with the findings and plan as documented. He has pleural thickening , both on the mediastinal aspect and pleural aspect. I personally spent a total of approximately 40 minutes on this encounter. This time includes face to face with patient, spent reviewing pertinent medical/family/social history, performing physical exam, clinically evaluating, interpreting labs/imaging, ordering necessary studies (i.e. medication, tests, procedures) and counseling patient, and discussion and/or coordination of care. This does not include time spent with patient by nursing or clerical staff. documented in this encounter Plan of Treatment Upcoming Encounters Date Type Department Care Team (Late st Contact Info) Description 01/15/2024 10:00 AM EST Ancillary Procedure [facility] Medicine Specialties [address] [place] [address] 01/15/2024 11:00 AM EST Consult [facility] Medicine Specialties [address], [address] [place] [address] Ida Nayak PA [address] [facility] [address] [place] [address] 06/19/2024 11:00 AM EDT Appointment [facility] Radiation [address] [facility]. [address] [place] [address] Leandro Seaman MD [address] [place] [address] Scheduled Referrals Name Type Priority Associated Diagnoses Order Schedule Ambulatory referral to Thoracic Surgery Outpatient Referral Routine 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) 1 Occurrences starting 08/21/2023 until 02/20/2025 documented as of this encounter Visit Diagnoses [...] documented as of this encounter Care Teams Sweater Operator Relationship Specialty Start Date End Date Carl Tate DO [address] [place] [address] PCP - General 04/17/23 Leandro Seaman MD [address] [place] [address] Consulting Physician Radiation Oncology 07/30/21 Carl Gaffney MD [address] [place] [address] Referring Physician 05/12/23 documented as of this encounter
--- OUTSIDE RECORDS SUMMARY | 2024-01-11 09:09 | XMS_ITS | Encounter Summary ---
Author Organization Healthcare Address [address] [place] [address] Care Team Providers Care Wall Crane Operator Name Role Phone Leandro Seaman MD Unavailable [phone] Carl Tate DO Primary Care Provider [phone] Carl Gaffney MD Unavailable [phone] Encounter Details Date Type Department Care Team (Latest Contact Info) Description 08/28/2023 Travel Social History Tobacco Use Types Packs/Day [...] Description 01/15/2024 10:00 AM EST Ancillary Procedure [facility] [address] [place] [address] 01/15/2024 11:00 AM EST Consult [facility] Medicine Specialties [address], [address] [place] [address] Ida Nayak PA [address] [place] [address] 06/19/2024 11:00 AM EDT Appointment [facility] Radiation [address] [facility]. [id number] [place] [phone] Leandro Seaman MD [address] [address] documented as of this encounter Visit Diagnoses Not on filedocumented in this encounter Additional Health Concerns Assessment Noted Time A fall risk assessment has been complete d for the patient 08/21/2023 3:49 PM EDT A Body Mass Index follow-up plan has been documented for the patient 08/21/2023 4:31 PM EDT documented as of this encounter Care Teams Wall Crane Operator Relationship Specialty Start Date End Date Carl Tate DO [address] [place] [address] PCP - General 04/17/23 Leandro Seaman MD [address] [place] [address] Consulting Physician Radiation Oncology 07/30/21 Carl Gaffney MD [address] [place] [address] Referring Physician 05/12/23 documented as of this encounter
--- OUTSIDE RECORDS SUMMARY | 2024-01-11 09:09 | XMS_ITS | Encounter Summary ---
Author Organization Healthcare Address [address] [place] [address] Care Team Providers Care Motorcycle Subassembler Name Role Phone Leandro Seaman MD Unavailable [phone] Carl Tate DO Primary Care Provider [phone] Carl Gaffney MD Unavailable [phone] Encounter Details Date Type Department Care Team (Latest Contact Info) Description 05/25/2023 10:16 AM EDT - 05/25/2023 11:59 PM EDT Hospital Encounter [facility] [address] [place] [address] Coronary artery disease involving cabazon heart, unspecified vessel or lesion type, unspecified whether angina present Discharge Disposition: Home or Self Care Social [...] syringe 1 milliliter(s) subcutaneous every 6 months furosemide (Lasix) 40 MG tablet Take 1 tablet (40 mg) by mouth 1 (one) time each day. 30 tablet 05/25/2023 Probiotic Product (PROBIOTIC BLEND PO) Take 1 tablet by mouth As Directed (Take on Monday, , and Monday). spironolactone (Aldactone) 25 MG tablet 1 tablet (25 mg). //Sat 05/19/2020 Tiotropium [place] Monohydrate (Spiriva Respimat) 2.5 MCG/ACT inhaler Inhale 2 puffs 1 (one) time each day. docusate sodium 100 MG capsule Take 100 mg by mouth 2 (two) times a day. 60 capsule 05/16/2023 4 senna (Senokot) 8.6 MG tablet Take 1 tablet (8.6 mg) by mouth 1 (one) time each day. 30 tablet 05/16/2023 4 acetaminophen (Tylenol) 325 MG tablet Take 2 [...] 05/16/2023 4 documented as of this encounter Plan of Treatment Upcoming Encounters Date Type Department Care Team (Late st Contact Info) Description 01/15/2024 10:00 AM EST Ancillary Procedure [facility] Medicine Specialties [address] [place] [address] 01/15/2024 11:00 AM EST Consult [facility] Medicine Specialties [address] [place] [address] Ida Nayak PA [address] [place] [address] 06/19/2024 11:00 AM EDT Appointment [facility] [id number] [place] [phone] Leandro Seaman MD [address] [place] [address] documented as of this encounter Procedures Procedure Name Priority Date/Time Associated Diagnosis Comments XR CHEST 2 VIEWS Routine 05/25/2023 10:2 5 AM EDT Coronary artery disease involving cabazon heart, unspecified vessel or lesion type, unspecified whether angina present documented in this encounter Results * XR Chest 2 Views (05/25/2023 10:25 AM EDT) Anatomical Region Laterality Modality Chest Digital Radiogra phy Impressions 05/25/2023 10:47 AM EDT Similar appearance of the small left pleural effusion. CRITICAL RESULT: ?? No. COMMUNICATION: Per this written report. By electronically signing this report, I, the attending physician, attest that I have personally reviewed the images/data for the above examination(s) and agree with the final edited report. Drafted by Nathan Baker MD on 05/25/2023 10:41 AM Final report signed by Lakhwinder Montero MD on 05/25/2023 10:47 AM Narrative 05/25/2023 10:47 AM EDT CLINICAL INDICATION: cad TECHNIQUE: XR CHEST 2 VIEWS COMPARISON: May 16, 2023 FINDINGS: Post median sternotomy. Similar positioning of the cardiac stents. Unchanged cardiomediastinal silhouette. Similar appearance of the small left pleural effusion. No airspace consolidation. No pneumothorax. Procedure Note Lakhwinder Montero MD - 05/25/2023 CLINICAL INDICATION: cad TECHNIQUE: XR CHEST 2 VIEWS COMPARISON: May 16, 2023 FINDINGS: Post median sternotomy. Similar positioning of the cardiac stents.Unchanged cardiomediastinal silhouette. Similar appearance of the smallleft pleural effusion. No airspace consolidation. No pneumothorax. IMPRESSION: Similar appearance of the small left pleural effusion. CRITICAL RESULT: No. COMMUNICATION: Per this written report. By electronically signing this report, I, the attending physician, attestthat I have personally reviewed the images/data for the aboveexamination(s) and agree with the final edited report. Drafted by Nathan Baker MD on 05/25/2023 10:41 AM Final report signed by Lakhwinder Montero MD on 05/25/2023 10:47 AM Sampson Mckeon MD IMG XR PROCEDURES Final Resu lt documented in this encounter Visit Diagnoses Diagnosis Coronary artery disease involving cabazon heart, unspecified vessel or lesion type, unspecified whether angina present documented in this encounter Additional Health Concerns Assessment Noted Time A fall risk assessment has been complete d for the patient 05/25/2023 12:12 PM EDT A Body Mass Index follow-up plan has been documented for the patient 05/25/2023 2:04 PM EDT documented as of this encounter Care Teams Motorcycle Subassembler Relationship Specialty Start Date End Date Carl Tate DO [address] [place] [address] PCP - General 04/17/23 Leandro Seaman MD [address] [place] [phone] Consulting Physician Radiation Oncology 07/30/21 Carl Gaffney MD [address] [place] [address] Referring Physician 05/12/23 documented as of this encounter
--- OUTSIDE RECORDS SUMMARY | 2024-01-11 09:09 | XMS_ITS | Encounter Summary ---
Author Organization Healthcare Address [address] [place] [address] Care Team Providers Care Track And Field Coach Name Role Phone Leandro Seaman MD Unavailable [phone] Carl Tate DO Primary Care Provider [phone] Carl Gaffney MD Unavailable [phone] Reason for Visit * Imaging (Routine) - Closed Specialty Diagnoses / Procedures Referred By Contac t Referred To Contact Diagnoses 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) Procedures PET/CT FDG Skull Base To Mid Thigh Naomi Meier MD [address] [facility] [address] [place] [address] Phone: tel: fax: [facility] () [address] [place] [address] Phone: tel: fax: Referral ID Status Reason Start Date Expiration Date Visits Re quested Visits Authorized [id number] Closed 08/30/2023 02/28/2025 2 2 Encounter Details Date Type Department Care Team (Latest Contact Info) Description 09/04/2023 1:39 PM EDT - 09/04/2023 11:59 PM EDT Hospital Encounter [facility] [address] [place] [address] Discharge Disposition: Home or Self Care Social [...] 1 (one) time each day. 08/02/2023 Tiotropium [place] Monohydrate (Spiriva Respimat) 2.5 MCG/ACT inhaler Inhale 2 puffs 1 (one) time each day. documented as of this encounter Plan of Treatment Upcoming Encounters Date Type Department Care Team (Late st Contact Info) Description 01/15/2024 10:00 AM EST Ancillary Procedure [facility] Medicine Specialties [address], [address] [place] [address] 01/15/2024 11:00 AM EST Consult [facility] Medicine Specialties [address], [address] [place] [address] Ida Nayak PA [address] [place] [address] 06/19/2024 11:00 AM EDT Appointment [facility] [id number] [place] [address] Leandro Seaman MD [address] [place] [phone] documented as of this encounter Procedures Procedure Name Priority Date/Time Associated Diagnosis Comments PET/CT FDG SKULL BASE TO MID THIGH Routine 09/04/2023 4:00 PM EDT 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) documented in this encounter Results * PET/CT [...] scanner: Siemens Biograph 40 mCT. PET/CT acquisition: Uykxsy-of-xez-thighs. Standardized uptake value (SUV): Corrected for body weight only. CT: Low-dose, fqc-ncmoup-jgub, without intravenous contrast. TOTAL DLP (Dose Length [...] completed September 06, 2021. CT performed in April4demonstrated pleural thickening in the mediastinal and pleural [...] scanner: Siemens Biograph 40 mCT. PET/CT acquisition: Aslrhi-oo-mwi-thighs. Standardized uptake value (SUV): Corrected for body weight only. CT: Low-dose, jsq-lfevmj-lqtv, without intravenous contrast. TOTAL DLP (Dose Length [...] Magaly Cotton MD on 09/05/2023 11:41 AM us Naomi Meier MD IMG NM PROCEDURES Final R esult documented in this encounter Visit Diagnoses Not on filedocumented in this encounter Additional Health Concerns Assessment Noted Time A fall risk assessment has been complete d for the patient 08/30/2023 8:54 AM EDT A Body Mass Index follow-up plan has been documented for the patient 09/02/2023 10:44 AM EDT documented as of this encounter Care Teams Track And Field Coach Relationship Specialty Start Date End Date Carl Tate DO [address] [place] [address] PCP - General 04/17/23 Leandro Seaman MD [address] [place] [phone] Consulting Physician Radiation Oncology 07/30/21 Carl Gaffney MD [address] [place] [address] Referring Physician 05/12/23 documented as of this encounter
--- OUTSIDE RECORDS SUMMARY | 2024-01-11 09:09 | XMS_ITS | Encounter Summary ---
Author Organization [facility] Address [address] [place] [address] Care Team Providers Care Relief Master Name Role Phone Leandro Seaman MD Unavailable [phone] Carl Tate DO Primary Care Provider [phone] Carl Gaffney MD Unavailable [phone] Reason for Referral * Imaging (Routine) - Closed Specialty Diagnoses / Procedures Referred By Contac t Referred To Contact Radiology Diagnoses 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) Procedures CT Chest wo IV Contrast Leandro Seaman MD [address] [address] Phone: tel: fax: Referral ID Status Reason Start Date Expiration Date Visits Re quested Visits Authorized [id number] Closed 09/20/2023 03/21/2025 1 1 Encounter Details Date Type Department Care Team (Late st Contact Info) Description 09/20/2023 Orders Only [facility] Radiation [id number] [place] [phone] Leandro Seaman MD [address] [place] [address] 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) (Primary Dx) Social History Tobacco Use [...] encounter Miscellaneous Notes * Progress Notes - Leandro Seaman MD - 09/20/2023 1:[address] chest documented in this encounter Plan of Treatment Upcoming Encounters Date Type Department Care Team (Late st Contact Info) Description 01/15/2024 10:00 AM EST Ancillary Procedure [facility] Medicine Specialties [address] [place] [address] 01/15/2024 11:00 AM EST Consult [facility] Medicine Specialties [address], [address] [place] [address] Ida Nayak PA [address] [place] [address] 06/19/2024 11:00 AM EDT Appointment [facility] [id number] [place] [address] Leandro Seaman MD [address] [place] [phone] documented as of this encounter Results * CT Chest wo [...] Lupe Zelaya MD on 12/20/2023 10:12 AM us Leandro Seaman MD IMG CT PROCEDURES Final Resu lt documented in this encounter Visit Diagnoses Diagnosis 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)- Primary 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) documented in this encounter Additional Health Concerns Assessment Noted Time A fall risk assessment has been complete d for the patient 09/06/2023 11:15 AM EDT A Body Mass Index follow-up plan has been documented for the patient 09/09/2023 9:05 PM EDT documented as of this encounter Care Teams Relief Master Relationship Specialty Start Date End Date Carl Tate DO [address] [place] [address] PCP - General 04/17/23 Leandro Seaman MD [address] [place], [place] [address] [place] [address] Consulting Physician Radiation Oncology 07/30/21 Carl Gaffney MD Counts include 234 beds at the [facility] [place] [address] Referring Physician 05/12/23 documented as of this encounter
--- OUTSIDE RECORDS SUMMARY | 2024-01-11 09:09 | XMS_ITS | Encounter Summary ---
Author Organization Healthcare Address [address] [id number] Care Team Providers Care Rabbit Breeder Name Role Phone Leandro Seaman MD Unavailable [phone] Carl Tate DO Primary Care Provider [phone] Carl Gaffney MD Unavailable [phone] Encounter Details Date Type Department Care Team (Latest Contact Info) Description 05/24/2023 Travel Social History Tobacco Use Types Packs/Day [...] Description 01/15/2024 10:00 AM EST [facility] [address] [place] [address] 01/15/2024 11:00 AM EST Consult [facility] Medicine Specialties [address] [place] [address] Nael, Ida L, PA [address] [place] [address] 06/19/2024 11:00 AM EDT Appointment [facility] Radiation [address] [facility] [address] [place] [address] Leandro Seaman MD [address] [place] [phone] documented as of this encounter Visit Diagnoses Not on filedocumented in this encounter Additional Health Concerns Assessment Noted Time A fall risk assessment has been complete d for the patient 05/04/2023 9:45 AM EDT A Body Mass Index follow-up plan has been documented for the patient 05/16/2023 10:45 AM EDT documented as of this encounter Care Teams Rabbit Breeder Relationship Specialty Start Date End Date Carl Tate DO [address] [place] [address] [phone] PCP - General 04/17/23 Leandro Seaman MD [address] [place] [phone] Consulting Physician Radiation Oncology 07/30/21 Carl Gaffney MD [address] [place] [address] Referring Physician 05/12/23 documented as of this encounter
--- OUTSIDE RECORDS SUMMARY | 2024-01-11 09:09 | XMS_ITS | Encounter Summary ---
Author Organization Healthcare Address [address] [id number] Care Team Providers Care Doughmaker Name Role Phone Leandro Seaman MD Unavailable [phone] Carl Tate DO Primary Care Provider [phone] Carl Gaffney MD Unavailable [phone] Reason for Visit * Reason Comments Follow-up Encounter Details Date Type Department Care Team ([facility] Contact Info) Description 09/06/2023 11:15 AM EDT Office Visit [facility] Res[facility] [address], [address] [place] [address] Naomi Meier MD [address] [facility] [address] [place] [address] Malignant neoplasm of upper lobe of left [...] Sign Reading Time Taken Comments Blood Pressure 111/75 09/06/2023 11:15 AM EDT Pulse 81 09/06/2023 11:15 AM EDT Temperature 36.7 ??C (98 ??F) 09/06/2023 11:15 AM EDT Respiratory Rate 16 09/06/2023 11:15 AM EDT Oxygen Saturation - - Inhaled Oxygen Concentration - - Weight 68.2 kg (150 lb 5.7 oz) 09/06/2023 11:15 AM EDT Height 172.7 cm (5' 8 ) 09/06/2023 11:15 AM EDT Body Mass Index 22.86 09/06/2023 11:15 AM EDT documented in this encounter Miscellaneous Notes * Progress Notes - Leandro Zafar MD - 09/06/2023 11:15 AM EDT Images from the original note were not included. [facility] Department of Surgery Section of Thoracic Surgery History & Physical Note Consulting MD: Dr. Ilir Carpenter Reason for Consultation/Chief complaint: LEROY adenocarcinoma History of Present Illness: Carlo Noriega is a 78 y.o. male who presents today for followup concerning worsening left pleural and mediastinal thickening. Patient was last seen on 08/30/23. Since then Patient describes a persistent dry cough, occasional sneezing and postnasal drip. He also states that he feels a bit more hoarse. He has had a 15 lb weight loss since his CABG back in May but states that his weight has now stabilized. He continues to have a decreased level of energy and occasional shortness of breath post surgery. He has otherwise been without any recent fevers, chills, night sweats, abdominal pain, lower extremity pain/inflammation/edema or constitutional symptoms of infection. 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 He was initially noted [...] increase over the last 2 weeks. His microcomputer support specialist put him on lasix and he thinks he has had some mild improvement. He also has a dry cough. No hemoptysis, weight loss, fevers, night sweats. Past Medical History: Past Medical History: Diagnosis Date CAD (coronary artery disease) 05/03/2023 Conversions - Other Bloating Conversions - Other Diarrhea (Symptom) COPD (chronic obstructive pulmonary disease) ([facility]) 05/12/2023 HLD (hyperlipidemia) 05/03/2023 Hypertension 06/19/2014 Lung cancer ([facility]) radiation tx Malignant neoplasm of upper lobe of left lung ([facility]) 07/30/2020 Osteoporosis 05/03/2023 Other specified anemias 05/12/2023 Tobacco abuse, in remission 05/15/2023 Past Surgical History: Past Surgical History: Procedure Laterality Date CARDIAC CATHETERIZATION CHOLECYSTECTOMY N/A Cholecystectomy from [facility] CORONARY ARTERY BYPASS GRAFT 05/12/2023 CABG x 2 - SVG to distal RCA, -Right internal mammary artery composite graft to vein distally to left anterior descending (Dr Pablo Mckeon) CORONARY STENT PLACEMENT 2021 PTCA with brachy therapy Cx KNEE SURGERY N/A Knee Surgery from [facility] OTHER SURGICAL HISTORY N/A Rt femoral stent [...] time each day., Disp: , Rfl: Tiotropium [place] Monohydrate (Spiriva Respimat) 2.5 MCG/ACT inhaler, Inhale 2 puffs 1 (one) time each day., Disp: , Rfl: furosemide (Lasix) 40 MG tablet, Take 1 tablet (40 mg) by mouth 1 (one) time each day., Disp: 30 tablet, Rfl: 0 ROS: General: no fevers or chills, no [...] or anxiety Physical exam: Visit Vitals BP 111/75 (BP Location: Left arm, Patient Position: Sitting, BP Cuff Size: Adult) Pulse 81 Temp 36.7 ??C (98 ??F) (Oral) Ht 1.727 m (5' 8 ) Wt 68.2 kg (150 lb 5.7 oz) BMI 22.86 kg/m?? CONSTITUTIONAL: Pleasant gentleman, NAD, A&O x3 HEAD: Normocephalic, atraumatic EYES: EOMI NECK: Supple, No JVD; trachea midline CARDIAC: Regular rate and rhythm CHEST/PULM: Well-healed sternotomy Symmetrical chest wall rise; NWOB GASTROINTESTINAL: Soft and compressible; NT, ND; No peritoneal signs GENITOURINARY: LYDIA EXTREMITIES: Normal ROM in BUE/BLE SKIN: Otherwise warm and dry NEUROLOGIC: No focal deficits; motor and sensation intact PSYCH: Appropriate mood and responses Imaging: I independently visualized the imaging which includes: CT chest (04/17/23), CT chest (07/17/2023), PET/CT CT Chest 04/17/23: FINDINGS: Mediastinum and Pleura: [...] follow-up to exclude recurrent disease is recommended. 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 No evidence of metabolically active recurrent or metastatic disease. Intense focal FDG activity fusing to the distal esophagus, likely representing reflux disease. Upper GI endoscopy recommended for further evaluation. Additional testing: none Assessment and Plan: Carlo Noriega is a 78 y.o. 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 Patient returns today with results of his PET/CT which shows mild diffuse FDG uptake along the leftparamediastinal/suprahilar pleural thickening which favors post radiation fibrosis. Patient did have some focal FDG activity within the distal esophagus however is without any symptoms of odynophagia, dysphagia, or reflux. She patient becomes symptomatic we would recommend endoscopy for further evaluation. At this time we suggest continued surveillance. Patient has regular follow-up with his radiation oncologist (Dr. Seaman) and has follow-up scheduled for 10/23/2023 with repeat imaging. Should he choose he may also follow up with us on an as-needed basis. Leandro Zafar MD 09/06/23 11:39 AM Cosigned by Naomi Meier MD at 09/09/2023 9:05 PM EDT Associated attestation - Naomi Meier MD - 09/09/2023 9:05 PM EDT Attending Addendum: I reviewed with the resident, during the patient's visit about the patient's history, exam, diagnosis, and the plan of treatment. I reviewed all of the patient's prior records and testing. I interviewed and examined the patient personally. I agree with the plan of care as follows: PET with no evidence of hypermetabolism in the left upper lobe opacity. 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 Ihave recommended ongoing surveillance with Dr. Seaman. I can see him on an as needed basis. Naomi Baugh MD enrollment consultant Thoracic Surgery documented in this encounter Plan of Treatment Upcoming Encounters Date Type Department Care Team (Late st Contact Info) Description 01/15/2024 10:00 AM EST Ancillary Procedure [facility] Medicine Specialties [address] [place] [address] 01/15/2024 11:00 AM EST Consult [facility] Medicine Specialties [address], [address] [place] [phone] Ida Nayak, PA [address] [place] [address] 06/19/2024 11:00 AM EDT Appointment [facility] Radiation [address] [facility] [id number] [place] [address] Leandro Seaman MD [address] [address] documented as of this encounter [...] documented as of this encounter Care Teams Doughmaker Relationship Specialty Start Date End Date Carl Tate DO [address] [place] [address] [phone] PCP - General 04/17/23 Leandro Seaman MD [address] [place] [phone] Consulting Physician Radiation Oncology 07/30/21 Carl Gaffney MD [address] [place] [address] Referring Physician 05/12/23 documented as of this encounter
--- OUTSIDE RECORDS SUMMARY | 2024-01-11 09:09 | XMS_ITS | Encounter Summary ---
Author Organization Healthcare Address [address] [id number] Care Team Providers Care Gyroscope Technician Name Role Phone Leandro Seaman MD Unavailable [phone] Carl Tate DO Primary Care Provider [phone] Carl Gaffney MD Unavailable [phone] Encounter Details Date Type Department Care Team (Latest Contact Info) Description 07/17/2023 Travel Social History Tobacco Use Types Packs/Day [...] Description 01/15/2024 10:00 AM EST Ancillary Procedure [facility] Medicine Specialties [address], [address] [place] [address] 01/15/2024 11:00 AM EST Consult [facility] Medicine Specialties [address], [address] [place] [address] Nael, Ida L, PA [address] [place] [address] 06/19/2024 11:00 AM EDT Appointment [facility] Radiation 800 [facility] [id number] [place] [address] Leandro Seaman MD [address] [place] [phone] documented as of this encounter Visit Diagnoses Not on filedocumented in this encounter Additional Health Concerns Assessment Noted Time A fall risk assessment has been complete d for the patient 07/17/2023 9:46 AM EDT A Body Mass Index follow-up plan has been documented for the patient 05/25/2023 2:04 PM EDT documented as of this encounter Care Teams Gyroscope Technician Relationship Specialty Start Date End Date Carl Tate DO [address] [place] [address] [phone] PCP - General 04/17/23 Leandro Seaman MD [address] [place] [address] Consulting Physician Radiation Oncology 07/30/21 Carl Gaffney MD [address] [place] [address] Referring Physician 05/12/23 documented as of this encounter
--- OUTSIDE RECORDS SUMMARY | 2024-01-11 09:09 | XMS_ITS | Encounter Summary ---
Author Organization [facility] Address [address] [id number] Care Team Providers Care Ostomy Nurse Name Role Phone Leandro Seaman MD Unavailable [phone] Carl Tate DO Primary Care Provider [phone] Carl Gaffney MD Unavailable [phone] Encounter Details Date Type Department Care Team (Late st Contact Info) Description 08/30/2023 Orders Only Ch Radiology Virtual Dept. 800 [place] [address] Junior Cardenas MD 800 [place] [address] Social History Tobacco Use Types Packs/Day Years [...] [facility] Medicine Specialties [address], [address] [place] [address] 01/15/2024 11:00 AM EST Consult [facility] Medicine Specialties [address], [address] [place] [address] Ida Nayak PA [address] [place] [address] 06/19/2024 11:00 AM EDT Appointment [facility] CC Radiation 800 [facility]. [id number] [place] [phone] Leandro Seaman MD [address] [place] [phone] documented as of this encounter Visit Diagnoses Not on filedocumented in this encounter Additional Health Concerns Assessment Noted Time A fall risk assessment has been complete d for the patient 08/30/2023 8:54 AM EDT A Body Mass Index follow-up plan has been documented for the patient 09/02/2023 10:44 AM EDT documented as of this encounter Care Teams Ostomy Nurse Relationship Specialty Start Date End Date Carl Tate DO [address] [place] [address] [phone] PCP - General 04/17/23 Leandro Seaman MD [address] [place] [phone] Consulting Physician Radiation Oncology 07/30/21 Carl Gaffney MD [address] [place] [address] Referring Physician 05/12/23 documented as of this encounter
--- OUTSIDE RECORDS SUMMARY | 2024-01-11 09:09 | XMS_ITS | Encounter Summary ---
Author Organization [facility] Address [address] [id number] Care Team Providers Care Cleaner Laboratory Equipment Name Role Phone Leandro Seaman MD Unavailable [phone] Carl Tate DO Primary Care Provider [phone] Carl Gaffney MD Unavailable [phone] Encounter Details Date Type Department Care Team (Late st Contact Info) Description 09/27/2023 Telephone Radiology Virtual Dept. 800 [place] [address] Leandro Seaman MD [address] [address] Social History Tobacco Use Types Packs/Day [...] Description 01/15/2024 10:00 AM EST Ancillary Procedure [facility] Medicine Specialties [address], [address] [place] [address] 01/15/2024 11:00 AM EST Consult [facility] Medicine Specialties [address], [address] [place] [address] Ida Nayak PA [address] [place] [address] 06/19/2024 11:00 AM EDT Appointment [facility] CC Radiation 800 [facility]. [id number] [place] [phone] Leandro Seaman MD [address] [place] [phone] documented as of this encounter Visit Diagnoses Not on filedocumented in this encounter Additional Health Concerns Assessment Noted Time A fall risk assessment has been complete d for the patient 09/06/2023 11:15 AM EDT A Body Mass Index follow-up plan has been documented for the patient 09/09/2023 9:05 PM EDT documented as of this encounter Care Teams Cleaner Laboratory Equipment Relationship Specialty Start Date End Date Carl Tate DO [address] [place] [address] [phone] PCP - General 04/17/23 Leandro Seaman MD [address] [place] [phone] Consulting Physician Radiation Oncology 07/30/21 Carl Gaffney MD [address] [place] [address] Referring Physician 05/12/23 documented as of this encounter
--- OUTSIDE RECORDS SUMMARY | 2024-01-11 09:09 | XMS_ITS | Encounter Summary ---
Author Organization Healthcare Address [address] [id number] Care Team Providers Care Global Account Manager Name Role Phone Leandro Seaman MD Unavailable [phone] Carl Tate DO Primary Care Provider [phone] Carl Gaffney MD Unavailable [phone] Encounter Details Date Type Department Care Team (Late st Contact Info) Description 05/25/2023 11:40 AM EDT Office Visit [facility] [address], [address] [place] [address] Pablo Mckeon MD [address] [place] [address] Coronary artery disease involving nenana coronary artery of nenana heart without angina pectoris (Primary Dx) Social History Tobacco Use Types [...] Sign Reading Time Taken Comments Blood Pressure 106/76 05/25/2023 12:04 PM EDT Pulse 58 05/25/2023 12:04 PM EDT Temperature - - Respiratory Rate - - Oxygen Saturation 100% 05/25/2023 12:04 PM EDT Inhaled Oxygen Concentration - - Weight 71.8 kg (158 lb 3.2 oz) 05/25/2023 12:04 PM EDT Height - - Body Mass Index 24.06 05/13/2023 9:00 AM EDT documented in this encounter Miscellaneous Notes * Progress Notes - Modesto Rider PA - 05/25/2023 11:40 AM EDT Reason for visit Post op visit History of present illness: Carlo Noriega is a 77 y.o. male referred to us in consultation by Dr. Gaffney in regards tocoronary artery disease. Mr. Noriega has a past medical history significant for coronary artery disease status post stents ([id number], LAD, circumflex and RCA) and left upper lobe lung cancer (status post radiation treatment (2014 and 2021), and history of tobacco use (40+ years, quite in 2003). He reports that he has had exertional chest pain/pressure and dyspnea with exertion that has progressed over the past few months. It occurs with any exertion. He also has noticed dizziness over the past few months when he stands up. On May 11 this gentleman underwent coronary artery bypass surgery x2. His hospital course was mostly uneventful and he was discharged home on the 4th postoperative day. He returns to clinic today for his routine interval appointment. 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 Surgical History Past Surgical History: Procedure Laterality Date CARDIAC CATHETERIZATION CHOLECYSTECTOMY N/A Cholecystectomy from [facility] CORONARY ARTERY BYPASS GRAFT 05/12/2023 CABG x 2 - SVG to distal RCA, -Right internal mammary artery composite graft to vein distally to left anterior descending (Dr Pablo Mckeon) CORONARY STENT PLACEMENT 2021 PTCA with brachy therapy Cx KNEE SURGERY N/A Knee Surgery from [facility] OTHER SURGICAL HISTORY N/A Rt femoral stent > 20 years ago RADIATION THERAPY Lt lung cancer 2014 and 2021 WRIST FRACTURE SURGERY Left pins Social History: Tobacco: Tobacco Use: Medium Risk (05/25/2023) Patient History Smoking Tobacco Use: Former Smokeless Tobacco Use: Never Passive Exposure: Not on file Alcohol: Alcohol Use: Not on file Illicit drug use: Social History Substance and Sexual Activity Drug Use Never Family History: family history includes Diabetes in his mother; Heart disease in his mother; Hypertension in his mother; Lung cancer in his brother; Throat cancer in his brother. Allergies: No Known Allergies Medications: Prior to Admission medications Medication Sig Start Date End Date Taking? Authorizing Provider acetaminophen (Tylenol) 325 MG tablet Take 2 tablets (650 mg) by mouth every 6 (six) hours. 05/16/23 Yes Rose Fields APRN albuterol 108 (90 Base) MCG/ACT inhaler Inhale 2 puffs 4 (four) times a day if needed for wheezing.Yes Ciarra Queen MD aspirin 81 MG chewable tablet Chew 1 tablet (81 mg) 1 (one) time each day. Yes Ciarra Queen MD atorvastatin (Lipitor) 80 MG tablet Take 1 tablet (80 mg) by mouth every night. 06/05/20 Yes Ciarra Queen MD azelastine (Astelin) 0.1 % nasal spray Administer 1 spray into each nostril 1 (one) time each day if needed for rhinitis. Use in each nostril as directed Yes Ciarra Queen MD clopidogrel (Plavix) 75 MG tablet TAKE 1 TABLET BY MOUTH ONCE DAILY FOR ANTIPLATELET 06/06/20 Yes Ciarra Queen MD denosumab (Prolia) 60 MG/ML solution prefilled syringe 1 milliliter(s) subcutaneous every 6 months Yes Ciarra Queen MD methocarbamol (Robaxin) 500 MG tablet Take 2 tablets (1,000 mg) by mouth 4 (four) times a day for 10 days. 05/19/23 05/29/23 Yes Cj Valles PA metoprolol tartrate (Lopressor) 25 MG tablet Take 1 tablet (25 mg) by mouth 2 (two) times a day. 05/16/23 05/15/24 Yes Rose Fields APRN Probiotic Product (PROBIOTIC BLEND PO) Take 1 tablet by mouth 1 (one) time each day in the evening.Yes Provider, Ciarra, spironolactone (Aldactone) 25 MG tablet 1 tablet (25 mg). //Sat 05/19/20 Yes Provider, MD Ciarra Tiotropium Trout Monohydrate (Spiriva Respimat) 2.5 MCG/ACT inhaler Inhale 2 puffs 1 (one) time each day. Yes Provider, Historical, docusate sodium 100 MG capsule Take 100 mg by mouth 2 (two) times a day. Patient not taking: Reported on 05/25/2023 05/16/23 06/15/23 Rose Fields APRN furosemide (Lasix) 40 MG tablet Take 1 tablet (40 mg) by mouth 1 (one) time each day for 5 days. 05/17/23 05/22/23 Rose Fields APRN senna (Senokot) 8.6 MG tablet Take 1 tablet (8.6 mg) by mouth 1 (one) time each day. Patient not taking: Reported on 05/25/2023 05/16/23 06/15/23 Rose Fields APRN methocarbamol (Robaxin) 500 MG tablet Take 1 tablet (500 mg) by mouth 4 (four) times a day if needed for muscle spasms for up to 10 days. 05/16/23 05/19/23 Rose Fields APRN oxyCODONE (Roxicodone) 5 MG immediate release tablet Take 1 tablet (5 mg) by mouth every 4 (four) hours if needed for moderate pain for up to 3 days. 05/16/23 05/25/23 Rose Fields APRN Review of systems: ROS Labs in last 18 hours CBC WBC 11.80 (H) Hb 10.9 (L) Plt 479 (H) Hct 36.0 (L) ANC ?? INR ??, PTT ??, Anti-Xa ?? BMP Na 141 Cl 106 BUN 12 Glu 133 (H) K 5.0 (H) Co2 24 Cr 1.07 Ca 9.8 Imaging: Velez, mediastinal wires are intact, no infiltrates or effusions were identified. Physical exam: Physical Exam Sternal incision cdi Leg incision cdi Impression: S/p cabg Small Cell Lung Cancer, 2014 dx Plan: He has made an excellent recovery status post coronary bypass surgery. He has some residual peripheral edema for which he is on spironolactone 25 mg tablet 3 days a week. We will continue this current regimen. Relative to his clopidogrel, 75mg, we will continue this as directed and have him follow up with Dr. Gaffney on July 11, 2023 for further disposition of this oral anticoagulant from multiple coronary stents. Really amazed at how well this gentleman has done and this postoperative period. He has significant small-cell lung cancer diagnosis dating back 2014 and having undergone chemo and radiation therapy for non surgical resectable disease he represents really a miracle of medical science. We will remove skin closure andreina today. He may resume driving in a couple of weeks. Relative to to his complaints of ongoing shortness of breath his chest x- ray demonstrates clear lung evlez however we will prescribe him a short course of Lasix 40 mg a day with potassium replacement. We will not make a regular appointment to see him back in our clinic and will otherwise turn his care back over to his family physician primary roof truss detailer. MES Cosigned by Pablo Mckeon MD at 05/27/2023 3:56 PM EDT Associated attestation - Pablo Mckeon MD - 05/27/2023 3:56 PM EDT The patient was seen by myself and by Advanced Practice Provider (MICHAEL), and care was reviewed with me. documented in this encounter Plan of Treatment Upcoming Encounters Date Type Department Care Team (Late st Contact Info) Description 01/15/2024 10:00 AM EST Ancillary Procedure [facility] Medicine Specialties [address] [place] [phone] 01/15/2024 11:00 AM EST Consult [facility] Medicine Specialties [address] [place] [address] Ida Nayak PA [address] [place] [address] 06/19/2024 11:00 AM EDT Appointment [facility] [id number] [place] [address] Leandro Seaman MD [address] [facility] [address] [place] [address] documented as of this encounter Visit Diagnoses Diagnosis Coronary artery disease involving nenana coronary artery of nenana heart without angina pectoris- Primary documented in this encounter Additional Health Concerns Assessment Noted Time A fall risk assessment has been complete d for the patient 05/25/2023 12:12 PM EDT A Body Mass Index follow-up plan has been documented for the patient 05/25/2023 2:04 PM EDT documented as of this encounter Care Teams Global Account Manager Relationship Specialty Start Date End Date Carl Tate DO [address] [place] [id number] PCP - General 04/17/23 Leandro Seaman MD [address] [place] [phone] Consulting Physician Radiation Oncology 07/30/21 Carl Gaffney MD [address] [place] [address] Referring Physician 05/12/23 documented as of this encounter
--- OUTSIDE RECORDS SUMMARY | 2024-01-11 09:09 | XMS_ITS | Encounter Summary ---
Author Organization [facility] Address [address] [place] [address] Care Team Providers Care Openstack Cloud Consulting Architect Name Role Phone Leandro Seaman MD Unavailable [phone] Carl Tate DO Primary Care Provider [phone] Carl Gaffney MD Unavailable [phone] Encounter Details Date Type Department Care Team (Latest Contact Info) Description 09/04/2023 Travel Social History Tobacco Use Types Packs/Day [...] 01/15/2024 10:00 AM EST Ancillary Procedure [facility] Medicine Specialties [address] [place] [address] 01/15/2024 11:00 AM EST Consult [facility] [address] [place] [address] Ida Nayak PA [address] [place] [address] 06/19/2024 11:00 AM EDT Appointment [facility] [address] [facility] [address] [place] [phone] Leandro Seaman MD [address] [facility] [address] [place] [address] documented as of this encounter Visit Diagnoses Not on filedocumented in this encounter Additional Health Concerns Assessment Noted Time A fall risk assessment has been complete d for the patient 08/30/2023 8:54 AM EDT A Body Mass Index follow-up plan has been documented for the patient 09/02/2023 10:44 AM EDT documented as of this encounter Care Teams Openstack Cloud Consulting Architect Relationship Specialty Start Date End Date Carl Tate DO [address] [place] [address] PCP - General 04/17/23 Leandro Seaman MD [address] [place] [phone] Consulting Physician Radiation Oncology 07/30/21 Carl Gaffney MD [address] [place] [address] Referring Physician 05/12/23 documented as of this encounter
--- OUTSIDE RECORDS SUMMARY | 2024-01-11 09:09 | XMS_ITS | Encounter Summary ---
Author Organization [facility] Address [address] [place] [address] Care Team Providers Care Screw Eye Assembler Name Role Phone Leandro Seaman MD Unavailable [phone] Carl Tate DO Primary Care Provider [phone] Carl Gaffney MD Unavailable [phone] Encounter Details Date Type Department Care Team (Latest Contact Info) Description 09/06/2023 Travel Social History Tobacco Use Types Packs/Day [...] Description 01/15/2024 10:00 AM EST Ancillary Procedure [facility] Medicine Specialties [address] [place] [address] 01/15/2024 11:00 AM EST Consult [facility] [address] [place] [address] Ida Nayak PA [address] [place] [address] 06/19/2024 11:00 AM EDT Appointment [facility] [address] [facility] [address] [place] [phone] Leandro Seaman MD [address] [facility] [address] [place] [address] documented as of this encounter Visit Diagnoses Not on filedocumented in this encounter Additional Health Concerns Assessment Noted Time A fall risk assessment has been complete d for the patient 09/06/2023 11:15 AM EDT A Body Mass Index follow-up plan has been documented for the patient 09/09/2023 9:05 PM EDT documented as of this encounter Care Teams Screw Eye Assembler Relationship Specialty Start Date End Date Carl Tate DO [address] [place] [address] PCP - General 04/17/23 Leandro Seaman MD [address] [place] [address] Consulting Physician Radiation Oncology 07/30/21 Carl Gaffney MD [address] [place] [address] Referring Physician 05/12/23 documented as of this encounter
--- OUTSIDE RECORDS SUMMARY | 2024-01-11 09:09 | XMS_ITS | Encounter Summary ---
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) Procedures CT Chest w IV Contrast Pennie Pittman APRN, DNP [address] [address] Phone: tel: fax: Referral ID Status Reason Start Date Expiration Date Visits Re quested Visits Authorized [id number] Closed 04/17/2023 10/16/2024 1 1 Reason for Visit * Imaging (Routine) - Closed Specialty Diagnoses / Procedures Referred By Contac t Referred To Contact Radiology Diagnoses 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) Procedures CT Chest w IV Contrast Pennie Pittman APRN, DNP [address] [address] Phone: tel: fax: Referral ID Status Reason Start Date Expiration Date Visits Re quested Visits Authorized [id number] Closed 04/17/2023 10/16/2024 1 1 Encounter Details Date Type Department Care Team (Latest Contact Info) Description 07/17/2023 7:43 AM EDT - 07/17/2023 9:29 AM EDT Hospital Encounter [facility] [address] [place] [address] 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) Discharge Disposition: Home or Self Care Social History Tobacco Use Types Packs/Day Years Used Date Smoking Tobacco: Former Cigarettes 1 43 1 961 - 2003 Smokeless Tobacco: Never Alcohol Use Standard Drinks/Week [...] 1 tablet (25 mg). //Sat 05/19/2020 Tiotropium Connell Monohydrate (Spiriva Respimat) 2.5 MCG/ACT inhaler Inhale [...] as of this encounter Miscellaneous Notes * Vivien Gray - 07/17/2023 8:01 AM EDT Images from the original note were not included. [id number] Caring for Yourself after Contrast Imaging If you had ORAL contrast: ?? You can go back to your normal diet and activities as tolerated. ?? Drink plenty of fluids, unless told otherwise. If you had IV contrast: ?? You can go back to your normal diet and activities as tolerated. ?? Drink plenty of fluids, unless told otherwise. ?? Leave a bandage on the site for 30 minutes (where the IV was inserted or blood was drawn). If you had Intravesical (bladder) contrast: ?? Return to normal diet and activity. What you need to know about delayed reaction to IV contrast What is IV Contrast? ?? Contrast is a dye that is put into your body through an IV. ?? It is used for imaging scans such as CT scans and MRIs. ?? The contrast makes blood vessels, organs and other parts of your body show up better on the scan. What do I need to do after IV contrast? ?? Drink lots of fluids. This will help flush the contrast out of your system. ?? Drink 2-3 extra glasses or bottles of water within 4 hours of your scan. What is a contrast reaction? ?? A contrast reaction is a bad side effect from the contrast dye. ?? It is rare but it does happen. ?? They can be mild - such as sneezing, itching, or hives. ?? They can be severe - such as trouble breathing, throat swelling, and irregular heart beat. When do these reactions happen? ?? They often happen right after the contrast is injected. ?? Some happen hours after going home. Go to the nearest Emergency Department right away if you have any of these symptoms after you leavethe clinic or hospital. ?? Sneezing ?? Itching in your mouth, throat, eyes, ears, or skin ?? Rash or hives ?? Throwing up or stomach sickness ?? High heart rate or ?racing? of your heart ?? Feeling dizzy or woozy ?? Feeling short of breath or like you can?t take a deep breath ?? Feeling very anxious for no other reason It is very important that these reactions be treated. Tell the doctor or nurse that you are having a reaction to IV contrast dye. Do not ignore any sign of a reaction! All reactions must be assessed by a doctor. Call 911 if you are alone and your reaction is more than mild sneezing or itching. If you have a mild reaction, call to speak with a Radiologist, explain that you havehad a contrast reaction, as this needs to be added to your medical record. documented in this encounter Plan of Treatment Upcoming Encounters Date Type Department Care Team (Late st Contact Info) Description 01/15/2024 10:00 AM EST Ancillary Procedure [facility] Medicine Specialties [address] [place] [address] 01/15/2024 11:00 AM EST Consult [facility] Medicine Specialties [address] [place] [address] dIa Nayak PA [address] [place] [address] 06/19/2024 11:00 AM EDT Appointment [facility] [address] [place] [address] Leandro Seaman MD [address] [place] [address] Scheduled Orders Name Type Priority Associated Diagnoses Order Schedule POCT creatinine venous clear green (no-gel) Point of Care Testing - Docked Devices Routine Once (Lab) for 1 Occurrences starting 07/17/2023 until 07/17/2023 documented as of this encounter Procedures Procedure Name Priority Date/Time Associated Diagnosis Comments CT CHEST W IV CONTRAST Routine 07/17/2023 8:13 AM EDT 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) POCT CREATININE ISTAT UNSOLICITED RESULTS Routine 07/17/2023 7:01 AM EDT documented in this encounter Results * CT Chest w IV Contrast (07/17/2023 8:13 AM EDT) Anatomical Region Laterality Modality Chest Computed Tomogra phy Impressions 07/17/2023 9:41 AM EDT Interval increase in left upper lobe paramediastinal [...] Lupe Zelaya MD on 07/17/2023 9:41 AM Narrative 07/17/2023 9:41 AM EDT CLINICAL INDICATION: 77-year-old male with non-small cell lung cancer (NSCLC), non-metastatic, assess treatment response TECHNIQUE: Multiple CT helical images were obtained from thoracic inlet through upper abdomen with administration of IV contrast. 100 ??mL of Omnipaque-300 were administered intravenously. ?? Total DLP (Dose-Length Product): 249.22 mGy.cm. Please [...] mainstem bronchus and distal left pulmonary artery, consistent with postradiation fibrosis. Increased thickness of left perihilar [...] sternotomy. No suspicious lytic or sclerotic lesions. Procedure Note Lupe Zelaya MD - 07/17/2023 CLINICAL INDICATION: 77-year-old male with non-small cell lung cancer (NSCLC), non-metastatic,assess treatment response TECHNIQUE: Multiple CT helical images were obtained from thoracic inlet through upperabdomen with administration of IV contrast. 100 mL of Omnipaque-300 wereadministered intravenously. Total DLP (Dose-Length Product): 249.22 mGy.cm. Please note: The reportedvalue represents the total of one or more individual components during theCT acquisition on this date and at this time, and as such, the same valuemay appear in more than one CT report depending on theinterpreting/reporting physicians. COMPARISON: CT chest, 04/17/2023 FINDINGS: Mediastinum and Pleura: No enlarged mediastinal or hilar lymph nodes.Redemonstrated trace pericardial effusion. New small left pleuraleffusion. Severe trivessel calcific atherosclerotic disease. Lungs: Similar narrowing of the left mainstem bronchus and distal leftpulmonary artery, consistent with postradiation fibrosis. Increasedthickness of left perihilar paramediastinal soft tissue density, measureup to 1.6 cm in thickness anteriorly (series 2 image 29), previously up to1.2 cm and up to 8.2 cm in AP dimension, previously up to 7.8 cm.Remaining central airways are patent. Bilateral upper lobe predominantcentrilobular emphysema. Stable small nodularity in the right apex (series2 image 25) Upper Abdomen: Surgically absent gallbladder. Unchanged bilateral adrenalnodules. Unchanged left renal cyst. Musculoskeletal: Prior sternotomy. No suspicious lytic or scleroticlesions. IMPRESSION: Interval increase in left upper lobe paramediastinal soft tissuethickening. Correlation with PET/CT or short-term CT follow-up to excluderecurrent disease is recommended. CRITICAL RESULT: No. COMMUNICATION: Per this written report. By electronically signing this report, I, the attending physician, attestthat I have personally reviewed the images/data for the aboveexamination(s) and agree with the final edited report. Drafted by Jax Ravi MD on 07/17/2023 9:03 AM Final report signed by Lupe Zelaya MD on 07/17/2023 9:41 AM Pennie Pittman APRN, DNP IMG CT PROCEDURES Final Result * POCT creatinine (07/17/2023 7:01 AM EDT) [facility] Creatinine, Point of Care 1.1 0.8 - 1.3 mg/dL 07/17/2023 8:03 AM EDT [facility] POCT eGFR 70 mL/min/1. 73m*2 07/17/2023 8:03 AM EDT [facility] Honing Job Setter ID Vivien Brewster 07/17/2023 8:03 AM EDT [facility] Device ID [id number] 07/17/2023 8:03 AM EDT [facility] Comment 07/17/2023 8:03 AM EDT [facility] Comment:Testing performed on i-STAT at the point of care. Reported eGFRcr in mL/min/1.73m2 is based the CKD-EPI 2020 equation that does not use a race coefficient. Blood Venous blood specimen / Unknown 07/17/2023 7:01 AM EDT 07/17/2023 8:03 AM EDT Generic Provider Poct LAB POINT OF CARE TEST DOCKED DEVICE UNSOLICITED RESULTS Final Result [facility] [address] [place] [address] [place] [address] documented in this encounter Visit Diagnoses Diagnosis 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) documented in this encounter Administered Medications Inactive Administered Medications - up to 3 most recent administrations Medication Order MAR Action Action Date Dose Rate Site iohexol (OMNIPaque) 300 MG/ML injection 100 mL 100 mL, Intravenous, Once in imaging, 1 dose, Starting on Mon07/17/23 at 0748, Until Mon07/17/23 at 0810, Routine, Imaging Protocol Orders Given 07/17/2023 8:10 AM EDT 100 mL documented in this encounter Additional Health Concerns Assessment Noted Time A fall risk assessment has been complete d for the patient 07/17/2023 9:46 AM EDT A Body Mass Index follow-up plan has been documented for the patient 05/25/2023 2:04 PM EDT documented as of this encounter Care Teams Wafer Machine Operator Relationship Specialty Start Date End Date Carl Tate DO [address] [place] [address] PCP - General 04/17/23 Leandro Seaman MD [address] [place], [place] [address] [place] [address] Consulting Physician Radiation Oncology 07/30/21 Carl Gaffney MD [address] [place] [address] Referring Physician 05/12/23 documented as of this encounter
--- OUTSIDE RECORDS SUMMARY | 2024-01-11 09:10 | XMS_ITS | Encounter Summary ---
Author Organization Healthcare Address [address] [id number] Care Team Providers Care Web Project Manager Name Role Phone Leandro Seaman MD Unavailable [phone] Carl Tate DO Primary Care Provider [phone] Carl Gaffney MD Unavailable [phone] Encounter Details Date Type Department Care Team (Latest Contact Info) Description 05/16/2023 Travel Social History Tobacco Use Types Packs/Day [...] Description 01/15/2024 10:00 AM EST Ancillary Procedure [facility] [address] [place] [address] 01/15/2024 11:00 AM EST Consult [facility] [address], [address] [place] [address] Nael, Ida L, PA [address] [place] [address] 06/19/2024 11:00 AM EDT Appointment [facility] [address] [facility] [id number] [place] [address] Leandro Seaman MD [address] [place] [id number] documented as of this encounter Visit Diagnoses Not on filedocumented in this encounter Additional Health Concerns Assessment Noted Time A fall risk assessment has been complete d for the patient 05/04/2023 9:45 AM EDT A Body Mass Index follow-up plan has been documented for the patient 05/16/2023 10:45 AM EDT documented as of this encounter Care Teams Web Project Manager Relationship Specialty Start Date End Date Carl Tate DO [address] [place] [phone] PCP - General 04/17/23 Leandro Seaman MD [address] [place] [id number] Consulting Physician Radiation Oncology 07/30/21 Carl Gaffney MD [address] [place] [id number] Referring Physician 05/12/23 documented as of this encounter
--- OUTSIDE RECORDS SUMMARY | 2024-01-11 09:10 | XMS_ITS | Encounter Summary ---
Author Organization Healthcare Address [address] [place] [address] Care Team Providers Care Women Specialist Name Role Phone Leandro Seaman MD Unavailable [phone] Carl Tate DO Primary Care Provider [phone] Carl Gaffney MD Unavailable [phone] Reason for Referral * Consultation (Routine) - Authorized Specialty Diagnoses / Procedures Referred By Contac t Referred To Contact Cardiac Rehabilitation Diagnoses S/P CABG (coronary artery bypass graft) Pablo Mckeon MD [address] [address] Phone: tel: fax: Referral ID Status Reason Start Date Expiration Date V isits Requested Visits Authorized [id number] Authorized 05/16/2023 11/14/2024 1 1 Reason for Visit * Auth/Cert (Routine) Specialty Diagnoses / Procedures Referred By Contac t Referred To Contact Diagnoses CAD (coronary artery disease) CAD Procedures OK CABG, ARTERIAL, SINGLE CABG Pablo Mckeon MD [address] [address] Phone: tel: fax: [facility]PER[facility] ROOM [address] [place] [address] Phone: tel: Referral ID Status Reason Start Date Expiration Date Visits Re quested Visits Authorized [id number] 1 1 Encounter Details Date Type Department Care Team (Late st Contact Info) Description 05/12/2023 5:18 AM EDT - 05/16/2023 12:13 PM EDT Hospital Encounter [facility] Inpatient [address] [place] [address] Pablo Mckeon MD [address] [place] [address] Acute respiratory failure with hypoxia (CMS/HCC) (Primary Dx); S/P CABG x 3; CAD in [place] artery; S/P CABG (coronary artery bypass graft) Discharge Disposition: Home or Self Care Social [...] Sign Reading Time Taken Comments Blood Pressure 111/64 05/16/2023 6:00 AM EDT Pulse 77 05/16/2023 11:25 AM EDT Temperature 36.6 ??C (97.9 ??F) 05/16/2023 11:25 AM E DT Respiratory Rate 20 05/16/2023 11:25 AM EDT Oxygen Saturation 95% 05/16/2023 11:25 AM EDT Inhaled Oxygen Concentration - - Weight 76.7 kg (169 lb 1.5 oz) 05/15/2023 6:00 A M EDT Height 172.7 cm (5' 7.99 ) 05/13/2023 9:00 AM ED T Body Mass Index 25.72 05/13/2023 9:00 AM EDT documented in this encounter Discharge Instructions * Discharge Instructions* Rose Fields, IBETH - 05/16/2023 10:44 AM EDT Follow up appointment with Dr. Gaffney: July 10 at 11:00 a.m. * Attachments The following attachments cannot be sent through Care Everywhere. * After Bypass Surgery, Managing Pain ([place]) * After Bypass Surgery, Your Emotional Health ([place]) * Coronary Artery Bypass Graft Surgery, Discharge Instructions for ([place]) * After Sternotomy: General Safety ([place]) ([place]) documented in this encounter Medications at Time [...] 1 tablet (25 mg). //Sat 05/19/2020 Tiotropium [place] Monohydrate (Spiriva Respimat) 2.5 MCG/ACT inhaler Inhale [...] 6 (six) hours. 100 tablet 05/16/2023 4 furosemide (Lasix) 40 MG tablet Take 1 tablet (40 mg) by mouth 1 (one) time each day for 5 days. 5 tablet 05/17/2023 4 methocarbamol (Robaxin) 500 MG tablet Take 1 tablet (500 mg) by mouth 4 (four) times a day if needed for muscle spasms for up to 10 days. 40 tablet 05/16/2023 4 metoprolol tartrate (Lopressor) 25 MG tablet Take 1 tablet (25 mg) by mouth 2 (two) times a day. 60 tablet 2 05/16/2023 4 oxyCODONE (Roxicodone) 5 MG immediate release tablet Take 1 tablet (5 mg) by mouth every 4 (four) hours if needed for moderate pain for up to 3 days. 18 tablet 05/16/2023 4 documented as of this encounter Miscellaneous Notes * Progress Notes - Magda Collazo - 05/16/2023 11:25 AM EDT Inpatient Cardiac Rehab Assessment Patient Name: Ivis Noriega Today's Date: 05/16/2023 Subjective: Mr. Noriega qualifies for outpatient cardiac rehab due to recent CABG. I/R/P: I met with Ivis Noriega to discuss outpatient cardiac rehab and the benefits of attending. Insurance coverage discussed. Mr. Noriega is agreeable to a referral and prefers to attend at [facility]. Referral will be sent to [facility] and they will contact him to discuss and schedule. Cardiac Rehabilitation Program Referral 1. Participation in a Phase II cardiac rehabilitation program is recommended. Patient was informed about what cardiac rehabilitation has to offer and why it is beneficial. The plan of care for the rehabilitation program consists of risk factor modification, monitored and supervised exercise and assistance in the recovery process with ongoing education and support. Patient is patient interested incardiac rehab?: is interested in attending a cardiac rehabilitation program. 2. Eligibility: CABG 3. Exceptions/exclusions: [facility] Cardiac Rehab Exclusions: None 4. Referral: [facility] Cardiac Rehab Referral: Patient agreed with referral to the cardiac rehabilitation program at [facility] in [place], [place], phone number [phone]. 5. Information sent: Information Sent: Appropriate information will be sent to the receiving cardiac rehabilitation program.: * Progress Notes - Brigette Tadeo RN - 05/16/2023 10:55 AM EDT Case Management Discharge Note Ivis Noriega 77 y.o. male CSN: [id number] Admission: 05/12/2023 5:18 AM Primary Problem: CAD in [place] artery Primary [employer] Worker: Primary Caregiver: Self Assistance Available at Discharge: Availability of Care Givers (#Hours): 24 hours Family/[employer] Worker(s) Readiness Assessed to care for patient at home: Yes Housing Circumstances-Z Codes: Housing Circumstances (select all that apply): None Applicable Discharge Facility/Level of Care Needs: Discharge Facility/Level of Care Needs: 1-Home or Self Care Patient's Choice of Community Agency(s): Patient's Choice of Community Agency(s): [facility] for rollator Patient/Family Anticipated Services at Transition: Patient/Family Anticipated Services at Transition: durable medical equipment DME/Equipment Needed after Discharge: Equipment Currently Used at Home: none Equipment Needed After Discharge: mahsa tate Follow-up: Carl Gaffney MD [address] [facility] [address] [address] Follow up Your appointment time is Please bring your BOTTLES of medications with you. Discharge Transportation: Transportation Anticipated: family or friend will provide Transportation Home at Discharge: Family/Friend will Provide Has discharge transport been arranged?: No Follow Up Transport: Transportation Needed to Follow up Appoinments: Family/Friend will Provide Additional Comments: Possible discharge today per first call provider this am if medically ready. Cm spoke to patient and and they are agreeable with discharge plan. Patient is independent and lives with . Lacho ordered rollator from [employer] [phone] cm faxed patient info and order [phone] and spoke to banner- rollator will be delivered to patient home. Patient is aware . Patient has no additional thera py recs or cm discharge needs at this time. states she is agreeable and able to provide support if needed. will transport when medically ready No RN/SW CM discharge needs noted at this time . Any additional needs after cm dept hours please page evening/weekend cm at [phone]. Brigette Tadeo RN * Discharge Summary - Donnie Rose S, IBETH - 05/16/2023 10:33 AM EDT Hospitalization Admit Date/Time: 05/12/2023 5:18 AM Admitting Attending: Pablo Mckeon Discharge Date: 05/16/2023 Discharge Attending Physician: Pablo Mckeon MD PCP name and Address: Carl Tate, [place] [address] Referring provider name and address: No referring provider defined for this encounter. Chief Concern, Brief History of Present Illness, and Hospital Course Mr. Ivis Noriega didn't have any significant intraoperative complications. Patient was extubated without difficulty and oxygen was weaned as tolerated. Patient was able to tolerate advancement of diet. He is voiding without difficulty and having regular bowel movements. Pain is adequately controlled with oral pain medications. Surgical incision is clean, dry, and intact without obvious signs of infection. Patient was seen and evalaluted during morning rounds and deemed appropriate for discharge at this time. All discharge instructions and medications were reviewed with the patient and family. Questions answered, follow up as below. Patient discharged in stable condition with the assistanceof Family. Surgeries and Procedures Procedures performed in this encounter Procedures Critical Care Critical Care CABG (N/A) Medication List .. acetaminophen 325 MG tablet Commonly known as: Tylenol Take 2 tablets (650 mg) by mouth every 6 (six) hours. albuterol 108 (90 Base) MCG/ACT inhaler Inhale 2 puffs 4 (four) times a day if needed for wheezing. aspirin 81 MG chewable tablet Chew 1 tablet (81 mg) 1 (one) time each day. atorvastatin 80 MG tablet Commonly known as: Lipitor Take 1 tablet (80 mg) by mouth every night. azelastine 0.1 % nasal spray Commonly known as: Astelin Administer 1 spray into each nostril 1 (one) time each day if needed for rhinitis. Use in each nostril as directed clopidogrel 75 MG tablet Commonly known as: Plavix TAKE 1 TABLET BY MOUTH ONCE DAILY FOR ANTIPLATELET DSS 100 MG capsule Take 100 mg by mouth 2 (two) times a day. furosemide 40 MG tablet Commonly known as: Lasix Take 1 tablet (40 mg) by mouth 1 (one) time each day for 5 days. Start taking on: May 17, 2023 methocarbamol 500 MG tablet Commonly known as: Robaxin Take 1 tablet (500 mg) by mouth 4 (four) times a day if needed for muscle spasms for up to 10 days. metoprolol tartrate 25 MG tablet Commonly known as: Lopressor Take 1 tablet (25 mg) by mouth 2 (two) times a day. oxyCODONE 5 MG immediate release tablet Commonly known as: Roxicodone Take 1 tablet (5 mg) by mouth every 4 (four) hours if needed for moderate pain for up to 3 days. PROBIOTIC BLEND PO Take 1 tablet by mouth 1 (one) time each day in the evening. Prolia 60 MG/ML injection Generic drug: denosumab 1 milliliter(s) subcutaneous every 6 months senna 8.6 MG tablet Commonly known as: Senokot Take 1 tablet (8.6 mg) by mouth 1 (one) time each day. spironolactone 25 MG tablet Commonly known as: Aldactone 1 tablet (25 mg). //Mon Tiotropium [place] Monohydrate 2.5 MCG/ACT inhaler Commonly known as: Spiriva Respimat Inhale 2 puffs 1 (one) time each day. Where to Get Your Medications These medications were sent to [facility] - [place], [place] - [address] [facility] [id number] acetaminophen 325 MG tablet DSS 100 MG capsule furosemide 40 MG tablet methocarbamol 500 MG tablet metoprolol tartrate 25 MG tablet oxyCODONE 5 MG immediate release tablet senna 8.6 MG tablet Discharge Diagnosis Mr. Ivis Noriega is a 77 year old male with PMH significant for CAD s/p stents, LEROY lung cancer s/p radiation 2014 and 2021, tobacco abuse in remission, overweight, hypertension, hyperlipidemia, andPAD. He had developed exertional chest pain and dyspnea with exertion that had progressed over the few months prior to admission. He was found to have multivessel CAD. He is now s/p CABG x 2 on 05/11. Multivessel CAD (POA) H/o heart artery stent Hypertensive heart disease (POA) Dyspnea on exertion (POA) (resolved) Exertional angina (POA) (resolved) S/p CABG x 2 on 05/11 - Median sternotomy, coronary artery bypass grafting x2, endoscopic vein harvest-right lower extremity-greater saphenous. Vein from the ascending aorta to the distal right coronary artery. Right internal mammary artery composite graft to vein distally to left anterior descending coronary artery. - Routine post cardiac surgery care: sternal precautions x 6 weeks, PT, bowel regimen to prevent constipation and aggressive pulmonary toilet. - ASA, statin, BB Volume overload - admission weight 74.8 kg - daily weights/I&Os - CXR prn - diuresis prn - current weight 76.7 kg Acute blood loss anemia - monitor and transfuse for Hgb < 7 - H/H 9.4/29.8 - H/H: 9.2/30.4 at discharge Thrombocytopenia - monitor and transfuse prn - platelets 145 Hypocalcemia - monitor and replete prn Hypertension (POA) - BB Hyperlipidemia (POA) - statin COPD (POA) - home albuterol inhaler PAD (POA) - ASA, statin - reports LE stenting 20+ years ago Osteoporosis (POA) - home denosumab H/o lung cancer - s/p radiation - complicates all aspects of care Tobacco abuse in remission - 40+ 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 Cardiothoracic Surgery Post Discharge Instructions See AVS Outpatient Follow-Up Future Appointments Date Time Provider Department Center 06/08/2023 11:40 AM Pablo Mckeon MD [facility] 07/17/2023 8:[address] [facility] 07/17/2023 10:00 AM Leandro Seaman MD [facility] 07/11/2023 11:[address] Gaffney Test Results Pending At Discharge None Pertinent Physical Exam At Time of Discharge GENERAL: Well nourished, well developed. No acute distress. EYES: No scleral icterus or conjunctivitis HENT: Atraumatic, normocephalic, nares patent, mucus membranes moist NECK: Supple RESP/CHEST: Clear to auscultation bilaterally with symmetric expansion; non labored. Sternum stable, sternotomy as noted below. CARD: RRR, S1S2. No murmur, rub, or gallop. No JVD. No lower extremity edema. Pedal pulses palpable+2. Extremities: No cyanosis or clubbing. GI: Soft, nontender, nondistended. BS present and normoactive x 4 quadrants SKIN: No rash, sores, lesions or subcutaneous nodules. Midsternal incision CDI, edges well approximated. EVH site CDI. NEURO: AAOx4. Motor intact and no focal deficits PSYCH: Mood and affect congruent and appropriate to situation. Discharge Disposition/Condition Disposition: Home Condition: Stable (s/sx potential problems absent or manageable) I spent >30 minutes of patient care and instruction time in preparation for this discharge. Cosigned by Pablo Mckeon MD at 05/22/2023 8:18 AM EDT Associated attestation - Pablo Mckeon MD - 05/22/2023 8:18 AM EDT The patient was seen only by Advanced Practice Provider (MICHAEL), and care was reviewed with me. * Progress Notes - Brigette Tadeo RN - 05/16/2023 8:57 AM EDT Case Management Adult Progress Note Ivis Noriega 77 y.o. male CSN: [id number] Admission: 05/12/2023 5:18 AM Primary Problem: CAD in [place] Possible dc today per rounding this am . Patient would like to use [employer] for rollator. cm contacted [employer] and faxed all info and order. They can deliver to patient home . [phone] fax [phone]- patient aware . Brigette Tadeo, RN * Care Plan - Mario Souza - 05/16/2023 7:30 AM EDT Problem: Adult Inpatient Plan of Care Goal: Plan of Care Review Outcome: Ongoing, Progressing Goal: Patient-Specific Goal (Individualized) Outcome: Ongoing, Progressing Goal: Optimal Comfort and Wellbeing Outcome: Ongoing, Progressing Goal: Readiness for Transition of Care Outcome: Ongoing, Progressing * Progress Notes - Pablo Mckeon MD - 05/16/2023 7:10 AM EDT Ivis Noriega Patient was seen and examined with resident physicians and CCM. Morning chest x- ray reviewed. Labs in last 18 hours CBC WBC 9.58 Hb 9.2 (L) Plt 145 (L) Hct 30.4 (L) ANC ?? INR ??, PTT ??, Anti-Xa ?? BMP Na 136 Cl 103 BUN 16 Glu 110 (H) K 3.9 Co2 25 Cr 0.93 Ca 7.8 (L) iCa ?? Mg 2.5 (H), Phos ?? Lactate ?? LFT AST 26 AlkPhos 99 T Prot 6.0 (L) ALK 14 Bili 0.5 Alb ?? D.Bili ?? acetaminophen, 650 mg, Oral, q6h AMAN aspirin, 81 mg, Oral, Daily atorvastatin, 80 mg, Oral, Nightly bisacodyl, 10 mg, Rectal, Daily docusate sodium, 100 mg, Oral, BID enoxaparin, 40 mg, Subcutaneous, Daily furosemide, 40 mg, Oral, Daily metoprolol tartrate, 25 mg, Oral, BID mupirocin, , Each Nostril, BID polyethylene glycol, 17 g, Oral, Daily Povidone-Iodine, 1 Swab, Nasal, Daily senna, 17.2 mg, Oral, Nightly Tiotropium [place] Monohydrate, 2 puff, Inhalation, Daily Visit Vitals BP 111/64 Pulse 79 Temp 36.7 ??C (98 ??F) (Oral) Ht 1.727 m (5' 7.99 ) Wt 76.7 kg (169 lb 1.5 oz) SpO2 92% BMI 25.72 kg/m?? Intake/Output Summary (Last 24 hours) at 05/16/2023 0710 Last data filed at 05/16/2023 0600 Gross per 24 hour Intake 1320 ml Output 1475 ml Net -155 ml Physical Exam Vitals reviewed. Constitutional: Appearance: He is not ill-appearing. HENT: Head: Normocephalic and atraumatic. Right Ear: External ear normal. Left Ear: External ear normal. Nose: Nose normal. Mouth/Throat: Mouth: Mucous membranes are moist. Pharynx: Oropharynx is clear. Cardiovascular: Rate and Rhythm: Normal rate and regular rhythm. Pulmonary: Effort: Pulmonary effort is normal. No respiratory distress. Abdominal: General: There is no distension. Palpations: Abdomen is soft. Musculoskeletal: Right lower leg: No edema. Left lower leg: No edema. Skin: General: Skin is warm and dry. Neurological: General: No focal deficit present. Mental Status: He is alert and oriented to person, place, and time. Psychiatric: Mood and Affect: Mood normal. Behavior: Behavior normal. Sternal incision: well approximated Leg incision: healing appropriately Impression & Plan Ivis Noriega is a 77 y.o. male status post CABGx2 on 05/12/23 - aspirin, statin, beta kellie - 40mg PO Lasix daily - mobilize, PT/OT - telemetry status - tentative discharge home today * Progress Notes - Grisel Nicole - 05/15/2023 11:09 AM EDT Case Management Adult Initial Progress Note Ivis Noriega 77 y.o. male CSN: [id number] Admission: 05/12/2023 5:18 AM Primary Problem: CAD in [place] artery Food And Nutrition Services Supervisor reviewed chart and spoke with the patient and his , Michelle, to complete this Initial Case Management Assessment. PCP: Carl Tate DO Emergency Contact: Extended Emergency Contact Information Primary Emergency Contact: Michelle Noriega [facility] Relation: Spouse Ambulance Assistant needed? No Insurance: Primary Visit Coverage Payer Plan Sponsor Code Group Number Group Name MEDICARE MEDICARE A & B Primary Visit Coverage Subscriber Subscriber ID Subscriber Name Subscriber SSN Subscriber Address [id number] IVIS NORIEGA [id number] [address] [place] [address] Secondary Visit Coverage Payer Plan Sponsor Code Group Number Group Name AAR AAR [employer] CLAIMS Secondary Visit Coverage Subscriber Subscriber ID Subscriber Name Subscriber N Subscriber Address [id number] IVIS NORIEGA [id number] [address] [place] [address] Patient information: Primary Caregiver: Self Accompanied by/Relationship: , Michelle Support System: Immediate family Daily Living Activities: Functional Status: Independent Living Arrangements: Spouse/Significant other Type of Residence: Multi Level [address] [place] [address] Current DME: Equipment Currently Used at Home: none Income Information: Income Source: Retired Current Resources Utilized: None Housing Circumstances-Z Codes: Housing Circumstances (select all that apply): None Applicable Patient Referred to: N/A Anticipated Discharge Date: TBD Patient's Discharge Goal: To return home Assistance Available at Discharge: available to help at discharge Discharge Transport: Family Follow Up Transport: Family Home Health / Home Infusion / Outpatient Dialysis Services: Denies prior HH/Abx/HD/TF/DME/O2. Living Will/Advance Directive/Power of Equipment Planner /Guardian: Has a LW. Pt wishes to be a full code. Additional Comments: BRIAN met with CVT team to discuss pt's plan of care. Per team, chief complaint is CAD. BRIAN met with ptat bedside for initial evaluation. Spouse Michelle was at bedside. They report that pt may be able to be discharged home tomorrow, per team. Confirmed address: [address] [place] [address], [place] [address]. Pt lives in a multi level home with1 step to enter. Pt's bedroom is on the main floor. PCP is Carl Tate M.D. and office nurse is Carl Gaffney M.D. Denies prior HH/HD/DME/O2/Abx/TF. Pt obtains his prescriptions at [facility] in [place]. Family to transport and assist as needed at discharge. No current SW/CM needs identified at this time. SUSANA Hayden * Clinician Note - Rose Fields, IBETH - 05/15/2023 10:53 AM EDT CVT Progress Note Assessment and Plan: Mr. Ivis Noriega is a 77 year old male with PMH significant for CAD s/p stents, LEROY lung cancer s/p radiation 2014 and 2021, tobacco abuse in remission, overweight, hypertension, hyperlipidemia, andPAD. He had developed exertional chest pain and dyspnea with exertion that had progressed over the few months prior to admission. He was found to have multivessel CAD. He is now s/p CABG x 2 on 05/11. Multivessel CAD (POA) H/o heart artery stent Hypertensive heart disease (POA) Dyspnea on exertion (POA) (resolved) Exertional angina (POA) (resolved) S/p CABG x 2 on 05/11 - Median sternotomy, coronary artery bypass grafting x2, endoscopic vein harvest-right lower extremity-greater saphenous. Vein from the ascending aorta to the distal right coronary artery. Right internal mammary artery composite graft to vein distally to left anterior descending coronary artery. - Routine post cardiac surgery care: sternal precautions x 6 weeks, PT, bowel regimen to prevent constipation and aggressive pulmonary toilet. - ASA, statin, BB Volume overload - admission weight 74.8 kg - daily weights/I&Os - CXR prn - diuresis prn - 76.7 kg Acute blood loss anemia - monitor and transfuse for Hgb < 7 - H/H 9.06/04.8 Thrombocytopenia - monitor and transfuse prn - platelets 125 Leukocytosis - WBC 10.91, improving, afebrile - continue to monitor Hypocalcemia - monitor and replete prn Hypertension (POA) - BB Hyperlipidemia (POA) - statin COPD (POA) - home albuterol inhaler PAD (POA) - ASA, statin - reports LE stenting 20+ years ago Osteoporosis (POA) - home denosumab H/o lung cancer - s/p radiation - complicates all aspects of care 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 Michelle Noriega(Spouse) at bedside. Went over [facility] program. Patient verbalized understanding and agreed to program. Enrolled patient in [facility], [facility] Transitional Care program under Transitional Care Model. Transitions will assist with support and education at time of discharge. Hospital coach professional athletes will follow throughout stay. Home coach professional athletes will see patient within 48 hours of discharge and follow with home visits and telephone contact times 6 weeks. Provided [facility] folder with brochure, educational materials, and contact information to patient. * Progress Notes - Pablo Mckeon MD - 05/15/2023 6:57 AM EDT Ivis Noriega Patient was seen and examined with resident physicians and CCM. Morning chest x- ray reviewed. Labs in last 18 hours CBC WBC 10.91 (H) Hb 9.4 (L) Plt 125 (L) Hct 29.8 (L) ANC ?? INR ??, PTT ??, Anti-Xa ?? BMP Na 139 Cl 104 BUN 19 Glu 111 (H) K 4.0 Co2 29 Cr 1.19 Ca 7.8 (L) iCa ?? Mg 2.3, Phos ?? Lactate ?? LFT AST ?? AlkPhos ?? T Prot ?? ALK ?? Bili ?? Alb ?? D.Bili ?? acetaminophen, 650 mg, Oral, q6h AMAN aspirin, 81 mg, Oral, Daily atorvastatin, 80 mg, Oral, Nightly bisacodyl, 10 mg, Rectal, Daily docusate sodium, 100 mg, Oral, BID enoxaparin, 40 mg, Subcutaneous, Daily furosemide, 40 mg, Oral, Daily metoprolol tartrate, 25 mg, Oral, BID mupirocin, , Each Nostril, BID polyethylene glycol, 17 g, Oral, Daily Povidone-Iodine, 1 Swab, Nasal, Daily senna, 17.2 mg, Oral, Nightly Tiotropium [place] Monohydrate, 2 puff, Inhalation, Daily Visit Vitals BP 104/57 Pulse 78 Temp 36.6 ??C (97.9 ??F) (Oral) Ht 1.727 m (5' 7.99 ) Wt 76.7 kg (169 lb 1.5 oz) SpO2 97% BMI 25.72 kg/m?? Intake/Output Summary (Last 24 hours) at 05/15/2023 0657 Last data filed at 05/15/2023 0600 Gross per 24 hour Intake 1360 ml Output 1546 ml Net -186 ml Physical Exam Vitals reviewed. Constitutional: Appearance: He is not ill-appearing. HENT: Head: Normocephalic and atraumatic. Right Ear: External ear normal. Left Ear: External ear normal. Nose: Nose normal. Mouth/Throat: Mouth: Mucous membranes are moist. Pharynx: Oropharynx is clear. Cardiovascular: Rate and Rhythm: Normal rate and regular rhythm. Pulmonary: Effort: Pulmonary effort is normal. No respiratory distress. Abdominal: General: There is no distension. Palpations: Abdomen is soft. Musculoskeletal: Right lower leg: No edema. Left lower leg: No edema. Skin: General: Skin is warm and dry. Neurological: General: No focal deficit present. Mental Status: He is alert and oriented to person, place, and time. Psychiatric: Mood and Affect: Mood normal. Behavior: Behavior normal. Sternal incision: well approximated Leg incision: healing appropriately Impression & Plan Ivis Noriega is a 77 y.o. male status post CABGx2 on 05/12/23 - aspirin, statin, beta kellie - 40mg PO Lasix daily - remove pacing wires - mobilize, PT/OT - telemetry status - tentative discharge home tomorrow * Progress Notes - Pablo Mckeon MD - 05/14/2023 8:51 AM EDT Ivis Noriega Patient was seen and examined with resident physicians and CCM. Morning chest x- ray reviewed. Labs in last 18 hours CBC WBC 16.87 (H) Hb 10.0 (L) Plt 159 Hct 31.6 (L) ANC ?? INR ??, PTT ??, Anti-Xa ?? BMP Na 138 Cl 104 BUN 23 Glu 140 (H) K 4.3 Co2 24 Cr 1.28 Ca 7.9 (L) iCa 4.4 (L) Mg 2.5 (H), Phos 2.7 Lactate 1.1 LFT AST ?? AlkPhos ?? T Prot ?? ALK ?? Bili ?? Alb ?? D.Bili ?? acetaminophen, 650 mg, Oral, q6h AMAN aspirin, 81 mg, Oral, Daily atorvastatin, 80 mg, Oral, Nightly docusate sodium, 100 mg, Oral, BID enoxaparin, 40 mg, Subcutaneous, Daily furosemide, 40 mg, Intravenous, Once metoprolol tartrate, 12.5 mg, Oral, BID mupirocin, , Each Nostril, BID phosphorus, 1 tablet, Oral, q12h polyethylene glycol, 17 g, Oral, Daily Povidone-Iodine, 1 Swab, Nasal, Daily senna, 17.2 mg, Oral, Nightly PAP: (30-45)/(12-15) 45/12 Visit Vitals BP (!) 140/72 Comment: right Pulse 86 Temp 37.9 ??C (100.2 ??F) Ht 1.727 m (5' 7.99 ) Wt 76.8 kg (169 lb 5 oz) SpO2 94% BMI 25.75 kg/m?? Intake/Output Summary (Last 24 hours) at 05/14/2023 0851 Last data filed at 05/14/2023 0600 Gross per 24 hour Intake 1428 ml Output 1378 ml Net 50 ml Physical Exam Vitals reviewed. Constitutional: Appearance: He is not ill-appearing. HENT: Head: Normocephalic and atraumatic. Right Ear: External ear normal. Left Ear: External ear normal. Nose: Nose normal. Mouth/Throat: Mouth: Mucous membranes are moist. Pharynx: Oropharynx is clear. Cardiovascular: Rate and Rhythm: Normal rate and regular rhythm. Pulmonary: Effort: Pulmonary effort is normal. No respiratory distress. Abdominal: General: There is no distension. Palpations: Abdomen is soft. Musculoskeletal: Right lower leg: No edema. Left lower leg: No edema. Skin: General: Skin is warm and dry. Neurological: General: No focal deficit present. Mental Status: He is alert and oriented to person, place, and time. Psychiatric: Mood and Affect: Mood normal. Behavior: Behavior normal. Sternal incision: surgical dressing in place Leg incision: KELSIE wrap in place Impression & Plan Ivis Noriega is a 77 y.o. male status post CABGx2 on 05/12/23 - aspirin, statin - increase metoprolol 25mg BID - 40mg PO Lasix daily - remove chest tubes - continue pacing wires - mobilize, PT/OT - okay for telemetry * Progress Notes - Kaitlin White MD - 05/13/2023 10:45 AM EDT Procedures 05/13/23 Ivis Noriega HPI Ivsi Noriega is a 77 y.o. male who presents with CAD in [place] artery. If applicable, patient is s/p Procedure(s) and Anesthesia Type: * CABG - General. Patient is 1 Day Post-Op with Cardiothoracic Surgery. Past 24 hours: PM: Extubated to NC. 40 IV lasix. AM: Episodes of vomiting when standing, scheduling zofran. Remove [place]. Start BB. 2L NC, wean to RA. DVT ppx ordered. Edited by: Kaitlin White MD at 05/13/2023 1041 Lines/Drains/Tubes: Patient Lines/Drains/Airways Status Active Active LDAs Name Placement date Placement time Site Days CVC Double Lumen 05/12/23 Right Internal jugular 05/12/23 0800 Internal jugular 1 Peripheral IV 05/12/23 Posterior;Right Hand 05/12/23 0630 Hand 1 Chest Tube Pleural;Mediastinal 36 Fr 05/12/23 1404 Pleural;Mediastinal less than 1 Urethral Catheter Non-latex;Temperature probe 16 Fr. 05/12/23 0733 -- 1 Y Chest Tube 1 and 2 1 Left Pleural 28 Fr. 2 Right Pleural 28 Fr. 05/12/23 1404 -- less than 1 Arterial Line 05/12/23 Left Radial 05/12/23 0833 Radial 1 Pulmonary Artery Catheter 05/12/23 Internal jugular Right 05/12/23 0834 Internal jugular 1 GCS: Mely Coma Scale Score: 15 Review of Systems 14 point ROS reviewed and otherwise negative or unobtainable except as noted above or in HPI. Vital signs: Vitals: 05/13/23 1000 BP: Pulse: 101 Resp: 25 Temp: 37.6 ??C (99.7 ??F) SpO2: 99% Intake/Output Summary (Last 24 hours) at 05/13/2023 1059 Last data filed at 05/13/2023 1000 Gross per 24 hour Intake 1517.5 ml Output 3354 ml Net -1836.5 ml Physical Exam: Sedation was held for the purposes of examination. Physical Exam Vitals reviewed. HENT: Head: Normocephalic and atraumatic. Eyes: Conjunctiva/sclera: Conjunctivae normal. Neck: Comments: Right central line in internal jugular with PAC Cardiovascular: Rate and Rhythm: Normal rate. Rhythm irregular. Pulmonary: Effort: No respiratory distress. Comments: On 2L NC Abdominal: General: There is no distension. Palpations: Abdomen is soft. Genitourinary: Comments: Zaidi in place Musculoskeletal: Cervical back: Normal range of motion and neck supple. Right lower leg: No edema. Left lower leg: No edema. Skin: General: Skin is warm and dry. Neurological: General: No focal deficit present. Mental Status: He is alert and oriented to person, place, and time. Psychiatric: Mood and Affect: Mood normal. Labs in last 18 hours: CBC WBC 19.75 (H) Hb 11.2 (L) Plt 192 Hct 36.4 (L) ANC ?? INR ??, PTT ??, Anti-Xa ?? BMP Na 141 Cl 107 BUN 18 Glu 163 (H) K 4.9 (H) Co2 20 (L) Cr 1.28 Ca 8.3 (L) iCa 4.5 (L) Mg 2.7 (H), Phos 3.4 Lactate 2.3 (H) LFT AST ?? AlkPhos ?? T Prot ?? ALK ?? Bili ?? Alb ?? D.Bili ?? Imaging as available: === 05/12/23 === XR CHEST 1 VIEW - Narrative - CLINICAL INDICATION: Post-Op Cardiac Surgery TECHNIQUE: Single AP view of chest. COMPARISON: Radiograph from one day prior FINDINGS: Interval removal of endotracheal tube. Other support tubes and lines appear unchanged. Left hemithorax opacities with decreased lung aeration is similar to prior. The right lung is relatively clear. - Impression - Stable appearances CRITICAL RESULT: No. COMMUNICATION: Per this written report. Drafted by Adi Mendoza MD on 05/13/2023 7:35 AM Final report signed by Adi Mendoza MD on 05/13/2023 7:37 AM Reviewed and agree with above. Assessment and Plan: This patient is critically ill. Medical Problems and Relevant Plans Hospital Problems POA * (Principal) CAD in [place] artery Yes Overview Addendum 05/13/2023 10:55 AM by Kaitlin White MD -S/P PCI -[facility] 04/27/23: LAD stent open, LMA stent 80% stenosis, circ with RCA stent #1 and #2 in prox and mid. 50% stenosis of prox, 70% stenosis distal. Circ stent with 90% stenosis prox to obtuse 1 and 2. -S/P 3 v CABG per Mike 05/12/23 - GDMT Primary hypertension Yes Overview Addendum 05/13/2023 10:56 AM by Kaitlin White MD Resume home meds when appropriate HLD (hyperlipidemia) Yes Overview Signed 05/13/2023 10:57 AM by Kaitlin White MD Resume home statin S/P CABG x 3 Not Applicable Overview Addendum 05/13/2023 10:56 AM by Kaitlin White MD ASA and statin Starting BB Acute postoperative pain No Overview Addendum 05/13/2023 10:54 AM by Kaitlin White MD MM pain control Electrolyte disturbance No Overview Addendum 05/13/2023 10:55 AM by Kaitlin White MD Lytes post OR and replace or manage per protocol History of thoracic irradiation Yes Overview Addendum 05/13/2023 10:55 AM by Kaitlin White MD Left chest wall Rad Tx 2021 - No PEÑA used - See op note for grafts used COPD (chronic obstructive pulmonary disease) ([facility]) Yes Overview Addendum 05/13/2023 10:55 AM by Kaitlin White MD Resume home meds when appropriate Duonebs while inpatient Acute respiratory failure with hypoxia ([facility]) No Overview Addendum 05/13/2023 10:54 AM by Kaitlin White MD Intubated for OR 05/12/23 To ICU with sedation post Op Extubated to MO Continue to wean as able Hyperglycemia No Overview Addendum 05/13/2023 10:55 AM by Kaitlin White MD A1c is 4.9 pre-op - Hyperglycemia post op On SSI as needed Thrombocytopenia ([facility]) No Overview Addendum 05/13/2023 10:56 AM by Kaitlin White MD Post-op, mild, expected Stable starting DVT ppx Other specified anemias Yes Overview Addendum 05/13/2023 10:55 AM by Kaitlin White MD Hgb 13 pre-op, down to 10.5 intra and post op. - No transfusions in OR - Trend per protocol Volume overload Unknown Overview Signed 05/13/2023 10:57 AM by Kaitlin White MD 40 IV lasix CTM Non-Hospital Problems Malignant neoplasm of upper lobe of left lung ([facility]) Osteoporosis CAD (coronary artery disease) HHD (hypertensive heart disease) PAD (peripheral artery disease) ([facility]) Kaitlin White MD Cosigned by Jori Peck MD at 05/14/2023 3:24 PM EDT Associated attestation - Jori Peck MD - 05/14/2023 3:24 PM EDT I saw and evaluated the patient with the resident/fellow. I discussed the case with the resident/fellow and agree with the findings and plan as documented. * Progress Notes - Grupo Gunn - 05/13/2023 10:07 AM EDT PHYSICAL THERAPY EVALUATION Patient Name Ivis Noriega Session Date 05/13/2023 Total Treatment Time 31 min PT Discharge Recommendations Home with assistance Equipment Recommendations Rollator HISTORY Ivis Noriega is 77 y.o. male admitted 05/12/2023 for work-up of CAD in [place]. Hospital Course 1. Acute respiratory failure with hypoxia ([facility]) 2. S/P CABG x 3 3. CAD in [place] artery Procedures (if applicable) 05/12/2023 Procedure(s): CABG Past Medical History Patient has a past medical history of CAD (coronary artery disease) (05/03/2023), Conversions - Other, Conversions - Other, COPD (chronic obstructive pulmonary disease) ([facility])(05/12/2023), HLD (hyperlipidemia) (05/03/2023), Hypertension (06/19/2014), Lung cancer ([facility]), Malignant neoplasm of upper lobe of left lung ([facility]) (07/30/2020), Osteoporosis (05/03/2023), and Other specified anemias (05/12/2023). Past Surgical History Patient has a past surgical history that includes Cholecystectomy (N/A); Other surgical history (N/A); Knee surgery (N/A); Cardiac catheterization; Coronary stent placement (2021); Wrist fracture surgery (Left); radiation therapy; and Coronary artery bypass graft (05/12/2023). PRECAUTIONS Weight Bearing Precautions (if applicable) ROM Restrictions (if applicable) Medical Precautions Yes Medical Precautions: Fall precautions, Sternal SUBJECTIVE Pt has ambulated hallway distances and transferred bed <> chair with workforce staffing advisor earlier this morning. PARTICIPANTS IN CARE Visitors Present Yes Spouse Ambulance Assistant (if applicable) PRESENTATION Oxygen Oxygen Therapy: Supplemental oxygen O2 Delivery Method: Nasal cannula O2 Flow Rate (L/min): 2 L/min Lines and Tubes telemetry Arterial Line 05/12/23 Left Radial (Active) CVC Double Lumen 05/12/23 Right Internal jugular (Active) Chest Tube Pleural;Mediastinal 36 Fr (Active) Urethral Catheter Non-latex;Temperature probe 16 Fr. (Active) Y Chest Tube 1 and 2 1 Left Pleural 28 Fr. 2 Right Pleural 28 Fr. (Active) Peripheral IV 05/12/23 Posterior;Right Hand (Active) External Pacemaker [place] [employer] / PAC Pre-Session Lines intact, Sitting in chair Post-Session Head of bed elevated, Supine, Lines intact, RN notified, Call light in reach family present, all needs met Bracing (if applicable) HOME LIVING/SET-UP Lives With Spouse Home Type House Home Equipment Bedside commode Home Layout Stairs to enter with rails, Able to live on one level with bedroom/bathroom, Two level (1 step to enter kitchen) Number of Stairs: 2 Bathroom Layout Bathroom: Tub/Shower: Tub/Shower combo Bathroom: Toilet: Tall Bathroom: Accessibility: Accessible Additional Comments PRIOR LEVEL OF FUNCTION Assist at Home No assist required prior to admission Level of Mobility Ambulatory- community Mobility Ona (Pt negotiates a flight of steps in his home multiple times daily.) History of Falls No Overall ADL Performance Independent Additional ADL Performance Detail PATIENT/FAMILY GOALS Patient/Family Goals Statement: Pt is hoping to improve mobility and discharge to home when medically ready for discharge. OBJECTIVE PAIN Pt was with c/o 2/10 pain (surgical, incisional) at the beginning of the PT treatment, which was relatively unchanged throughout the PT treatment. At the end of the PT treatment, pt was positioned for comfort. DELIRIUM SCREENING [place] Agitation Sedation Scale (RASS): Alert and calm Confusion Assessment Method-ICU (CAM-ICU/PCAM-ICU) Feature 3: Altered Level of Consciousness: Negative COGNITION Overall Cognitive Status Within Functional Limits Arousal/Alertness Appropriate responses to stimuli Mood/Behavior Alert Orientation Command Following Single Step Commands: Consistently Multi-Step Commands: Consistently Method of Communication Verbal Additional Observations Safety Judgment: Good awareness of safety precautions Awareness of Errors: Good awareness of errors made Deficit Awareness: Fully aware of deficits Attention Span: Appears intact Problem Solving: Able to problem solve independently MOTOR EXAMINATION RANGE OF MOTION Right Upper Within Functional Limits Left Upper Within Functional Limits Right Lower Within Functional Limits Left Lower Within Functional Limits MANUAL MUSCLE TESTING Right Upper Within functional limits (no MMT, sternal precautions, based on clincal obs) Left Upper Within functional limits (no MMT, sternal precautions, based on clincal obs) Right Lower Within functional limits Left Lower Within functional limits MUSCLE TONE Right Upper WFL Left Upper WFL Right Lower WFL Left Lower WFL SENSORY EXAMINATION Light Touch Sensation Right Upper Intact Left Upper Intact Right Lower Intact Left Lower Intact BED MOBILITY Level of Ona Physical/Non- physical Assist Adaptive Equipment Utilized Rolling/ Turning Scooting/ Bridging Supine to Sit Sit to Supine Moderate assist (50% patient's effort) Supervision, Verbal Cues, Maximal cues, HOB elevated Interventions TRANSFERS Level of Ona Physical/Non- physical Assist Adaptive Equipment Utilized Sit to Stand Stand-by assist Supervision, Verbal Cues Rollator Stand to sit Stand-by assist Supervision, Verbal Cues Rollator Bed to Chair Toilet Transfer Shower Transfer Interventions AMBULATION Level of Ona Distance Adaptive Equipment Utilized Ambulation Standby assist [phone] Rollator Comments no rest breaks, no dyspnea noted until returned to EOB following activity, no light headedness, dizziness, with vitals remaining WNL Pt ambulated with a good pace throughout the intervention, but with an increased pace and fluidity being noted with increased walking distance. PT presence was necessary for: * managing lines * progressing patient ambulation distances * monitoring patient vital sign stability * decreasing patient's risk of falling while progressing pt's distances * assessing patient readiness for decreasing support requirements from assistive devices INTERVENTIONS THERAPEUTIC ACTIVITY Treatment Minutes 16 Interventions see Bed Mobility, Transfers, Ambulation, and Balance sections for intervention details. BALANCE Postural Appearance Posture: Within Functional Limits Level of Ona Balance Support Interventions Static Sit Supervision No upper extremity support, Feet supported Dynamic Sit Supervision No upper extremity support, Feet supported Dynamic Sitting-Balance: Anterior/Posterior weight shifts, Lateral weight shifts, Reaching for objects Static Stand Supervision Right upper extremity support, Left upper extremity support rollator Dynamic Stand Contact guard Right upper extremity support, Left upper extremity support rollator STANDARDIZED ASSESSMENTS Standardized Assessments Standardized Assessments: AMPAC 6-Clicks Mobility Assessment AMPAC 6-Clicks Mobility Assessment Difficulty patient has turning over in bed (including adjusting bedclothes, sheets, and blankets)?:A lot Difficulty patient has sitting down on and standing up from a chair with arms (wheelchair, bedside commode, etc.)?: None Difficulty patient has moving from lying on back to sitting on the side of the bed?: A lot How much help does the patient need moving to and from a bed to a chair (including a wheelchair)?: A little How much help does the patient need to walk in hospital room?: A little How much help does the patient need climbing 3-5 steps with a railing?: A little [facility] 6-Clicks Mobility Assessment Total : 17 ASSESSMENT PT FINDINGS Impairments (if identified) Decreased endurance, ventilation, and/or gas exchange, Impaired gait dynamics/performance, Impaired postural/trunk control, Decreased strength, Impaired locomotion, Pain, Impaired balance Activity Limitations (if identified) Inability to ambulate independently Participation Restrictions (if identified) Self-care, Community leisure, Home management Barriers to Discharge (if identified) Additional Observations Activity Tolerance: Tolerates 10 - 20 min activity with multiple rests Evaluation/Treatment Tolerance: Patient limited by fatigue, Patient limited by pain Diagnosis: Impaired functional mobility EVAL COMPLEXITY History Profile 3 or more personal factors and/or comorbidities Clinical Presentation Unstable and unpredictable characteristics Clinical Decision Making High complexity PT RECOMMENDATIONS Discharge Destination Home with assistance Discharge Equipment Rollator Additional Recommendations (if applicable) PLAN Planned PT Interventions Balance training, Bed mobility training, Gait training, Transfer training, Postural re-education, ROM, Strengthening, Stretching PT Frequency 2 - 5 times per week PT Duration 2 weeks PT GOALS PT GOAL DETAILS Time Frame PT Goal 1: Pt is to demonstrate independence with PT POC, PT discharge recommendations, and adherence to sternal precautions. 2 weeks PT Goal 2: Pt is to independently transfer supine <> sit. 2 weeks PT Goal 3: Pt is to independently transfer sit <> stand and bed <> chair without an assistive device. 2 weeks PT Goal 4: Pt is to independently ambulate x1200 feet without an assistive device. 2 weeks PT Goal 5: Pt is to ascend and descend a flight of x12 steps SBA with a single handrail. 2 weeks Written by Grupo Gunn on 05/13/23 at 2:06 PM. * Progress Notes - Claire Catalan - 05/13/2023 10:05 AM EDT Occupational Therapy Evaluation Patient Name: Ivis Noriega Today's Date: 05/13/2023 OT Discharge Recommendations: Home with assistance History Ivis Noriega is 77 y.o. male admitted 05/12/2023 for work-up of CAD in [place] artery. Hospital Course 1. Acute respiratory failure with hypoxia ([facility]) 2. S/P CABG x 3 3. CAD in [place] artery Procedures 05/12/2023 Procedure(s): CABG Past Medical History Patient has a past medical history of CAD (coronary artery disease) (05/03/2023), Conversions - Other, Conversions - Other, COPD (chronic obstructive pulmonary disease) ([facility]) (05/12/2023), HLD (hyperlipidemia) (05/03/2023), Hypertension (06/19/2014), Lung cancer ([facility]), Malignant neoplasm of upper lobe of left lung ([facility]) (07/30/2020), Osteoporosis (05/03/2023), and Other specified anemias (05/12/2023). Past Surgical History Patient has a past surgical history that includes Cholecystectomy (N/A); Other surgical history (N/A); Knee surgery (N/A); Cardiac catheterization; Coronary stent placement (2021); Wrist fracture surgery (Left); radiation therapy; and Coronary artery bypass graft (05/12/2023). Precautions Medical Precautions: Fall precautions, Sternal Subjective Patient agreeable to OT evaluation/treatment following RN's consent. Participants in Care Family/Caregiver Present: Yes Family/Caregiver: Spouse Presentation Oxygen Therapy: Supplemental oxygen O2 Delivery Method: Nasal cannula O2 Flow Rate (L/min): 2 L/min Lines and Tubes: Intravenous access, Chest Tube, Art Line, Telemetry, Central Line, Urinary catheter, Surgical drains Pre-Session: Lines intact, Sitting in chair Post-Session: Head of bed elevated, Supine, Lines intact, RN notified, Call light in reach Post-Session Comments: family present, all needs met Home Living/Set-Up Lives With: Spouse Home Type: House Home Adaptive Equipment: Bedside commode Home Layout: Stairs to enter with rails, Able to live on one level with bedroom/bathroom, Two level(1 step to enter kitchen) Number of Stairs: 2 Bathroom: Tub/Shower: Tub/Shower combo Bathroom: Toilet: Tall Bathroom: Accessibility: Accessible Prior Level of Function Receives Help From: No assist required prior to admission Level of Mobility: Ambulatory- community Mobility Ona: Independent gait without device History of Falls: No ADL Performance: Independent Patient/Family Goals patient agreeable to OT POC Objective Pain Patient denies pain throughout session. Delirium Screening [place] Agitation Sedation Scale (RASS): Alert and calm Confusion Assessment Method-ICU (CAM-ICU/PCAM-ICU) Feature 3: Altered Level of Consciousness: Negative Cognition Overall Cognitive Status: Within Functional Limits Arousal/Alertness: Appropriate responses to stimuli Mood/Behavior: Alert Orientation Level: Oriented X4 Single Step Commands: Consistently Multi-Step Commands: Consistently Method of Communication: Verbal Safety Judgment: Good awareness of safety precautions Awareness of Errors: Good awareness of errors made Deficit Awareness: Fully aware of deficits Attention Span: Appears intact Problem Solving: Able to problem solve independently Right Upper Extremity Examination RUE Assessment: Within Functional Limits Manual Muscle Testing - RUE: Within functional limits (no MMT, sternal precautions, based on clincal obs) Light Touch: Right Upper Extremity: Intact Left Upper Extremity Examination LUE Assessment: Within Functional Limits Manual Muscle Testing - LUE: Within functional limits (no MMT, sternal precautions, based on clincal obs) Light Touch: Left Upper Extremity: Intact Right Lower Extremity Examination RLE Assessment: Within Functional Limits Manual Muscle Testing - RLE: Within functional limits Light Touch: Right Lower Extremity: Intact Left Lower Extremity Examination LLE Assessment: Within Functional Limits Manual Muscle Testing: Within functional limits Light Touch: Left Lower Extremity: Intact Perception/Coordination Fine Motor Coordination Examination Left Hand, Manipulation of Objects: Normal performance Right Hand, Manipulation of Objects: Normal performance Bed Mobility Bed Mobility Exam: Sit to Supine Level of Ona: Moderate assist (50% patient's effort) Physical/Nonphysical Assist: Supervision, Verbal Cues, Maximal cues, HOB elevated Transfers Transfer Exam: Sit to stand Level of Ona: Stand-by assist Physical/Nonphysical Assist: Supervision, Verbal Cues Assistive Device: Rollator Transfer Exam: Stand to Sit Level of Ona: Stand-by assist Physical/Nonphysical Assist: Supervision, Verbal Cues Assistive Device: Rollator Functional Mobility Device: Rollator Assistance: Standby assist Distance : x640ft Ambulation Comments: no rest breaks, no dyspnea noted until returned to EOB following activity, no light headedness, dizziness, with vitals remaining WNL Balance Postural Appearance Posture: Within Functional Limits Static Sitting Balance Static Sitting-Balance Support: No upper extremity support, Feet supported Static Sitting-Level of Assistance: Supervision Dynamic Sitting Balance Dynamic Sitting-Balance Support: No upper extremity support, Feet supported Dynamic Sitting-Balance: Anterior/Posterior weight shifts, Lateral weight shifts, Reaching for objects Level of Assistance: Supervision Static Standing Balance Static Standing-Balance Support: Right upper extremity support, Left upper extremity support Static Standing-Level of Assistance: Supervision Static Standing - Interventions: rollator Dynamic Standing Balance Dynamic Standing-Balance Support: Right upper extremity support, Left upper extremity support Dynamic Standing-Balance: Anterior/Posterior weight shifts, Lateral weight shifts, Reaching for objects Dynamic Standing Level of Assistance: Contact guard Participation in Functional Tasks: Contact guard Dynamic Standing - Interventions: rollator Self-Care Interventions Feeding Feeding Level of Assistance: Modified independent Feeding Where Assessed: Chair Level Grooming Grooming Level of Assistance: SBA, Setup Grooming Where Assessed: Chair level UE Dressing UE Dressing Level of Assistance: Setup, Minimum assistance UE Dressing Where Assessed: Edge of bed Lower Extremity Dressing Sock Level of Assistance: Dependent LE Dressing Where Assessed: Edge of bed Toileting Toileting Level of Assistance: Contact guard Where Assessed: Toilet Toileting Interventions: rollator to/from bathroom Patient participates in therapeutic activity addressing functional activity tolerance and enduranceneeded for ADL tasks. Patient completes sit>stand transfer from chair with close SBA using mod technique, cuing for sternal precautions, safety, and appropriate rollator use. Patient maintains standing balance with CGA for safety and ambulates > household distance with close SBA using rollator, multiple brief standing rest breaks required 2/2 pain intolerance. Patient provided with cuing for safety awareness, pain management techniques, sternal precautions, functional breathing, work simplification, and energy conservation techniques throughout participation in out of bed activity. Patient's vitals remain WNL throughout participation. Standardized Assessments Gloria Index Feeding: Needs help cutting, spreading butter, etc., or requires modified diet Bathing: Dependent Grooming: Needs help with personal care Dressing: Needs help but can do about half unaided Bowels: Incontinent (or needs to be given enemas) Bladder: Continent Toilet Use: Dependent Transfers (Bed to Chair and Back): Major help (one or two people, physical), can help Mobility (on Level Surfaces): Wheelchair independent, including corners, > 50 yards Stairs: Unable Total Score: 30 Assessment Patient would benefit from cont'd skilled OT while in acute setting for cont;d post-op pain management, strength, balance, endurance and activity tolerance training in prep for ADL/IADL tasks. Patient appears most limited by post-op pain, mild dyspnea, and weakness. Patient is agreeable to OT POC and discharge recommendations- family is very supportive and patient is very motivate. OT Findings: Impaired ADL performance, Impaired IADL performance Evaluation/Treatment Tolerance: Patient limited by fatigue, Treatment limited secondary to medical complications (Comment) Rehab Potential: Good, to achieve stated therapy goals Eval Complexity Occupational Profile: Expanded review of medical/therapy records and additional review of physical,cognitive, or psychosocial history Performance Deficits: Activities of daily living (ADLs), Rest and sleep Clinical Decision Making: Moderate Overall Eval complexity: Moderate OT Recommendations Discharge Destination: Home with assistance Discharge Equipment: Plan Planned OT Interventions ADL retraining, IADL retraining, Balance training OT Frequency 2 - 5 times per week OT Duration 2 weeks Goals OT GOAL DETAILS Time Frame OT Goal 1: patient will complete toileting routine and transfer with mod I using AD 2 weeks OT Goal 2: patient will complete grooming routine mod I in standing 2 weeks OT Goal 3: patient will complete lower body dressing routine with set up/mod I 2 weeks OT Goal 4: patient will independently adhere to sternal precautions 100% of the time throughout 2/2OT sessions 2 weeks Written by Claire Catalan on 05/13/23 at 1:28 PM. * Consults - Emily Kim LD - 05/13/2023 9:29 AM EDTAssociated Order(s): IP CONSULT TO NUTRITION SERVICES Adult Nutrition Evaluation Note Ivis Noriega 77 y.o. male CSN: [id number] Room/Bed 228/228A Nutrition evaluation type: assessment Reason for evaluation: provider consult Hospital course: 77 y/o M with CAD presents for CABG. Past medical/ surgical history: Past Medical History: Diagnosis Date CAD (coronary artery disease) 05/03/2023 Conversions - Other Bloating Conversions - Other Diarrhea (Symptom) COPD (chronic obstructive pulmonary disease) ([facility]) 05/12/2023 HLD (hyperlipidemia) 05/03/2023 Hypertension 06/19/2014 Lung cancer ([facility]) radiation tx Malignant neoplasm of upper lobe of left lung ([facility]) 07/30/2020 Osteoporosis 05/03/2023 Other specified anemias 05/12/2023 Past Surgical History: Procedure Laterality Date CARDIAC CATHETERIZATION CHOLECYSTECTOMY N/A Cholecystectomy from [email or web address] CORONARY ARTERY BYPASS GRAFT 05/12/2023 CABG x 2 - SVG to distal RCA, -Right internal mammary artery composite graft to vein distally to left anterior descending (Dr Pablo Mckeon) CORONARY STENT PLACEMENT 2021 PTCA with brachy therapy Cx KNEE SURGERY N/A Knee Surgery from [email or web address] OTHER SURGICAL HISTORY N/A Rt femoral stent > 20 years ago RADIATION THERAPY Lt lung cancer 2014 and 2021 WRIST FRACTURE SURGERY Left pins Social history: Additional comments: 05/12: Weekend coverage Vitals and Basic Assessment: BP: (!) 140/72 (right) Temp: 37.5 ??C (99.5 ??F) Invasive Ventilator Initiated (ETT/Trach Only): Yes Oxygen Therapy: Supplemental oxygen O2 Delivery Method: Nasal cannula Elcho Coma Scale Score: 15 Justino Scale Score: 22 Samuel/Cubbin Pressure Risk Score: 39 Last BM Date: 05/12/23 GI Symptoms: None Edema: Right upper extremity, Left upper extremity Allergies: No Known Allergies Medications: acetaminophen, 650 mg, Oral, q6h AMAN aspirin, 81 mg, Oral, Daily atorvastatin, 80 mg, Oral, Nightly ceFAZolin, 2 g, Intravenous, q8h chlorhexidine, 15 mL, Mouth/Throat, 4x daily docusate sodium, 100 mg, Oral, BID enoxaparin, 40 mg, Subcutaneous, Daily mupirocin, , Each Nostril, BID pantoprazole, 40 mg, Intravenous, Daily polyethylene glycol, 17 g, Oral, Daily potassium chloride, 20 mEq, Intravenous, Once Povidone-Iodine, 1 Swab, Nasal, Daily senna, 17.2 mg, Oral, Nightly Meds were reviewed: Yes Labs: Lab Results Component Value Date GLUCOSE 192 (H) 05/12/2023 CALCIUM 7.6 (L) 05/12/2023 NA 142 05/12/2023 K 5.3 (H) 05/13/2023 CO2 20 (L) 05/12/2023 CL 111 (H) 05/12/2023 BUN 13 05/12/2023 CREATININE 0.99 05/12/2023 PHOS 3.6 05/13/2023 MG 2.8 (H) 05/13/2023 HGBA1C 4.9 05/04/2023 Anthropometrics: Height: 172.7 cm (5' 7.99 ) Weight: 76.4 kg (168 lb 6.9 oz) BMI (Calculated): 25.62 Weight Evaluation: Overweight (BMI 25-29.9) [place] Body Weight (kg): 70 Percent [place] Body Weight: 109 Estimated Needs: Metabolic Cart Study Results: Current Nutrition Intake: Diet Supplements: None Diet Order: NPO Diet Experience and Nutrition History: Diet Education Provided: Will monitor Pertinent home medications: lipitor, plavix, probiotics Jainism needs: None noted Nutrition Focused Physical Exam: Unable to Complete Exam: Weekend coverage Physical exam performed on (date): Assessment of Malnutrition: Malnutrition Identified: Additional Information Needed Nutrition Problem: Inadequate oral intake related to s/p CABG as evidenced by NPO. Status of Nutrition Diagnosis: New Nutrition Interventions and Recommendations: Advancement of diet per primary. Recommend cardiac when advanced. Recommend Impact AR BID when diet is advanced past clears. Nutrition Monitoring and Goals: Nutrition to start NFPE on follow up as able Acuity Level: 4 [place] Weekend Dietitian * Progress Notes - Pablo Mckeon MD - 05/13/2023 8:10 AM EDT Ivis Noriega Patient was seen and examined with resident physicians and CCM. Morning chest x- ray reviewed. Labs in last 18 hours CBC WBC 15.50 (H) Hb 11.2 (L) Plt 194 Hct 35.4 (L) ANC ?? INR 1.4 (H), PTT 32, Anti-Xa ?? BMP Na 142 Cl 111 (H) BUN 13 Glu 192 (H) K 5.3 (H) Co2 20 (L) Cr 0.99 Ca 7.6 (L) iCa 4.5 (L) Mg 2.8 (H), Phos 3.6 Lactate 2.3 (H) LFT AST ?? AlkPhos ?? T Prot ?? ALK ?? Bili ?? Alb ?? D.Bili ?? acetaminophen, 650 mg, Oral, q6h AMAN aspirin, 81 mg, Oral, Daily atorvastatin, 80 mg, Oral, Nightly ceFAZolin, 2 g, Intravenous, q8h chlorhexidine, 15 mL, Mouth/Throat, 4x daily docusate sodium, 100 mg, Oral, BID mupirocin, , Each Nostril, BID pantoprazole, 40 mg, Intravenous, Daily polyethylene glycol, 17 g, Oral, Daily potassium chloride, 20 mEq, Intravenous, Once Povidone-Iodine, 1 Swab, Nasal, Daily senna, 17.2 mg, Oral, Nightly insulin regular infusion - for hyperglycemia - standard protocol, 0.5-30 Units/hr, Last Rate: Stopped (05/13/23 022) nitroglycerin, 0.2-2 mcg/kg/min, Last Rate: Stopped (05/12/23 2200) PAP: (18-46)/(7-29) / Visit Vitals BP (!) 140/72 Comment: right Pulse 85 Temp 37.5 ??C (99.5 ??F) (Bladder) Wt 76.4 kg (168 lb 6.9 oz) SpO2 96% BMI 25.61 kg/m?? Intake/Output Summary (Last 24 hours) at 05/13/2023 0811 Last data filed at 05/13/2023 0700 Gross per 24 hour Intake 1409.5 ml Output 3474 ml Net -2064.5 ml Physical Exam Vitals reviewed. Constitutional: Appearance: He is not ill-appearing. HENT: Head: Normocephalic and atraumatic. Right Ear: External ear normal. Left Ear: External ear normal. Nose: Nose normal. Mouth/Throat: Mouth: Mucous membranes are moist. Pharynx: Oropharynx is clear. Cardiovascular: Rate and Rhythm: Normal rate and regular rhythm. Pulmonary: Effort: Pulmonary effort is normal. No respiratory distress. Abdominal: General: There is no distension. Palpations: Abdomen is soft. Musculoskeletal: Right lower leg: No edema. Left lower leg: No edema. Skin: General: Skin is warm and dry. Neurological: General: No focal deficit present. Mental Status: He is alert and oriented to person, place, and time. Psychiatric: Mood and Affect: Mood normal. Behavior: Behavior normal. Sternal incision: surgical dressing in place Leg incision: KELSIE wrap in place Impression & Plan Ivis Noriega is a 77 y.o. male status post CABGx2 on 05/12/23 - aspirin, statin - low dose beta kellie - 40mg IV Lasix - adjust anti-emetic regimen - continue chest tubes and pacing wires - mobilize, PT/OT - continue ICU care * Progress Notes - Santo Amin MD - 05/12/2023 11:50 PM EDTAssociated Order(s): Critical Care Post-Procedure Diagnose(s): Acute respiratory failure with hypoxia (CMS/[facility]) Critical Care Performed by: Santo Amin MD Authorized by: Santo Amin MD Critical care provider statement: Critical care time (minutes): 67 Critical care time was exclusive of: Separately billable procedures and treating other patients andteaching time Critical care was time spent personally by me on the following activities: Development of treatmentplan with patient or surrogate, ordering and performing treatments and interventions, ordering and review of laboratory studies, ordering and review of radiographic studies, evaluation of patient's response to treatment, examination of patient and ventilator management I assumed subsequent critical care for this patient from a provider in my division, on the same day: yes Comments: Doing well. Extubated this evening while on rounds. Nasal cannula 05/12/23 Ivis Noriega Past 24 hours: PM: Extubated to MO. AM: 20 K replaced, PS trial, reversed, NTG for HTN Edited by: Higinio Hahn DO at 05/12/2023 2206 Lines/Drains/Tubes: Patient Lines/Drains/Airways Status Active Active LDAs Name Placement date Placement time Site Days CVC Double Lumen 05/12/23 Right Internal jugular 05/12/23 0800 Internal jugular less than 1 Peripheral IV 05/12/23 Posterior;Right Hand 05/12/23 0630 Hand less than 1 Chest Tube Pleural;Mediastinal 36 Fr 05/12/23 1404 Pleural;Mediastinal less than 1 Urethral Catheter Non-latex;Temperature probe 16 Fr. 05/12/23 0733 -- less than 1 Y Chest Tube 1 and 2 1 Left Pleural 28 Fr. 2 Right Pleural 28 Fr. 05/12/23 1404 -- less than 1 Arterial Line 05/12/23 Left Radial 05/12/23 0833 Radial less than 1 Pulmonary Artery Catheter 05/12/23 Internal jugular Right 05/12/23 0834 Internal jugular less than 1 Past Medical History: Active Ambulatory Problems Diagnosis Date Noted Malignant neoplasm of upper lobe of left lung ([facility]) 07/30/2020 Osteoporosis 05/03/2023 CAD (coronary artery disease) 05/03/2023 Primary hypertension 06/19/2014 HLD (hyperlipidemia) 05/03/2023 HHD (hypertensive heart disease) 05/03/2023 PAD (peripheral artery disease) ([facility]) 05/03/2023 Resolved Ambulatory Problems Diagnosis Date Noted No Resolved Ambulatory Problems Past Medical History: Diagnosis Date Conversions - Other Conversions - Other COPD (chronic obstructive pulmonary disease) ([facility]) 05/12/2023 Hypertension 06/19/2014 Lung cancer ([facility]) Other specified anemias 05/12/2023 Past Surgical History: Past Surgical History: Procedure Laterality Date CARDIAC CATHETERIZATION CHOLECYSTECTOMY N/A Cholecystectomy from [email or web address] CORONARY ARTERY BYPASS GRAFT 05/12/2023 CABG x 2 - SVG to distal RCA, -Right internal mammary artery composite graft to vein distally to left anterior descending (Dr Pablo Mckeon) CORONARY STENT PLACEMENT 2021 PTCA with brachy therapy Cx KNEE SURGERY N/A Knee Surgery from [email or web address] OTHER SURGICAL HISTORY N/A Rt femoral stent > 20 years ago RADIATION THERAPY Lt lung cancer 2014 and 2021 WRIST FRACTURE SURGERY Left pins Home Medications: Prior to Admission medications Medication Sig Start Date End Date Taking? Authorizing Provider albuterol 108 (90 Base) MCG/ACT inhaler Inhale 2 puffs 4 (four) times a day if needed for wheezing.Yes Provider, MD Ciarra aspirin 81 MG chewable tablet Chew 1 tablet (81 mg) 1 (one) time each day. Yes Provider, MD Ciarra atorvastatin (Lipitor) 80 MG tablet Take 1 tablet (80 mg) by mouth every night. 06/05/20 Yes Ciarra Queen MD metoprolol succinate XL (Toprol-XL) 50 MG 24 hr tablet Take 0.5 tablets (25 mg) by mouth 1 (one) time each day. 10/03/22 Yes Ciarra Queen MD spironolactone (Aldactone) 25 MG tablet 1 tablet (25 mg). //Sat 05/19/20 Yes Ciarra Queen MD Tiotropium [place] Monohydrate (Spiriva Respimat) 2.5 MCG/ACT inhaler Inhale 2 puffs 2 (two) times a day. Yes Ciarra Queen MD azelastine (Astelin) 0.1 % nasal spray Administer 1 spray into each nostril 1 (one) time each day if needed for rhinitis. Use in each nostril as directed Ciarra Queen MD clopidogrel (Plavix) 75 MG tablet TAKE 1 TABLET BY MOUTH ONCE DAILY FOR ANTIPLATELET 06/06/20 Ciarra Queen MD denosumab (Prolia) 60 MG/ML solution prefilled syringe 1 milliliter(s) subcutaneous every 6 months Ciarra Queen MD finasteride (Proscar) 5 MG tablet Take 1 tablet (5 mg) by mouth 1 (one) time each day. Patient not taking: Reported on 05/05/2023 06/16/20 Ciarra Queen MD metoprolol tartrate (Lopressor) 25 MG tablet Take 1 tablet (25 mg) by mouth. Patient not taking: Reported on 05/05/2023 Ciarra Queen MD Probiotic Product (PROBIOTIC BLEND PO) Take 1 tablet by mouth 3 times a week. Ciarra Queen MD Social History: Pt has reports that he quit smoking about 20 years ago. His smoking use included cigarettes. He started smoking about 63 years ago. He has a 43.00 pack-year smoking history. He has never used smokeless tobacco. He reports current alcohol use. He reports that he does not use drugs. (details as available below) Social History Substance and Sexual Activity Alcohol Use Yes Comment: beer once a week Social History Substance and Sexual Activity Drug Use Never Social History Tobacco Use Smoking Status Former Packs/day: 1.00 Years: 43.00 Additional pack years: 0.00 Total pack years: 43.00 Types: Cigarettes Start date: 1960 Quit date: 2003 Years since quittin.2 Smokeless Tobacco Never Vital signs reviewed. Labs reviewed. Radiography reviewed. Medications reviewed. Vital signs: Vitals: 05/12/23 2200 BP: Pulse: 75 Resp: 21 Temp: 37.1 ??C (98.8 ??F) SpO2: 97% Intake/Output Summary (Last 24 hours) at 05/12/2023 2350 Last data filed at 05/12/2023 2200 Gross per 24 hour Intake 1077.5 ml Output 2618 ml Net -1540.5 ml Labs in last 18 hours: CBC WBC 15.50 (H) Hb 11.2 (L); 11.2 (L) Plt 194 Hct 35.4 (L); 35.4 (L) ANC ?? INR 1.4 (H), PTT 32, Anti-Xa ?? BMP Na 142 Cl 111 (H) BUN 13 Glu 192 (H) K 5.5 (H); 5.5 (H) Co2 20 (L) Cr 0.99 Ca 7.6 (L) iCa 4.4 (L) Mg 3.5 (H), Phos 1.3 (L) Lactate 2.4 (H) LFT AST ?? AlkPhos ?? T Prot ?? ALK ?? Bili ?? Alb ?? D.Bili ?? Imaging if available: === 05/12/23 === XR CHEST 1 VIEW - Narrative - CLINICAL INDICATION: Post-Op Cardiac Surgery TECHNIQUE: XR CHEST 1 VIEW COMPARISON: May 04, 2023 FINDINGS: Endotracheal tube terminates 5.5 cm above the darling. Right internal jugular approach [place] catheter with tip of the main pulmonary artery. Mediastinal drain and bilateral chest tubes in place. Left apical effusion or hematoma and left upper lobe opacities. Interval median sternotomy and CABG. - Impression - Endotracheal tube with tip 5.5 cm above the darling. Left apical opacity may reflect hematoma or pleural effusion. Left upper lobe airspace opacities and atelectasis. CRITICAL RESULT: No. COMMUNICATION: Per this written report. Drafted by Miri Shah MD on 05/12/2023 4:18 PM Final report signed by Miri Shah MD on 05/12/2023 4:22 PM Reviewed and agree with above. Assessment and Plan: This patient is critically ill. Medical Problems Problem List * (Principal) CAD in [place] artery Overview Addendum 05/12/2023 3:17 PM by Carmelina Sainz APRN -S/P PCI [id number] -[facility] 04/27/23: LAD stent open, LMA stent 80% stenosis, circ with RCA stent #1 and #2 in prox and mid. 50% stenosis of prox, 70% stenosis distal. Circ stent with 90% stenosis prox to obtuse 1 and 2. -S/P 3 v CABG per Sekel 05/12/23 - GDMT Malignant neoplasm of upper lobe of left lung ([facility]) Osteoporosis CAD (coronary artery disease) Primary hypertension Overview Addendum 05/12/2023 3:19 PM by Carmelina Sainz APRN Resume home meds when appropriate HLD (hyperlipidemia) HHD (hypertensive heart disease) PAD (peripheral artery disease) ([facility]) S/P CABG x 3 Overview Signed 05/12/2023 3:18 PM by Carmelina Sainz APRN ASA and statin tonight Eval tomorrow for BB Acute postoperative pain Overview Signed 05/12/2023 3:19 PM by Carmelina Sainz APRN MM pain control Electrolyte disturbance Overview Signed 05/12/2023 3:19 PM by Carmelina Sainz APRN Lytes post OR and replace or manage per protocol History of thoracic irradiation Overview Signed 05/12/2023 3:21 PM by Carmelina Sainz APRN Left chest wall Rad Tx 2021 - No PEÑA used - See op note for grafts used COPD (chronic obstructive pulmonary disease) ([facility]) Overview Addendum 05/12/2023 3:21 PM by Carmelina Sainz APRN Resume home meds when appropriate Duonebs while inpatient Acute respiratory failure with hypoxia ([facility]) Overview Signed 05/12/2023 3:21 PM by Carmelina Sainz APRN Intubated for OR 05/12/23 To ICU with sedation post Op Evaluate for fast track extubation Hyperglycemia Overview Signed 05/12/2023 3:23 PM by Carmelina Sainz APRN A1c is 4.9 pre-op - Hyperglycemia post op - Insulin gtt overnight as needed. Thrombocytopenia ([facility]) Overview Signed 05/12/2023 3:25 PM by Carmelina Sainz APRN Post-op, mild, expected CTM Other specified anemias Overview Signed 05/12/2023 3:27 PM by Carmelina Sainz APRN Hgb 13 pre-op, down to 10.5 intra and post op. - No transfusions in OR - Trend per protocol Santo Amin MD * Discharge Instr - Appointments - Carmelina Coppola RN - 05/12/2023 11:02 PM EDT Prior to your appointment with Dr. Mckeon..... Please arrive 30 minutes early for a chest x-ray. Go to the radiology department on the 1st floor of the [facility] near [facility] for a chest x-ray. Then go to the lab on the 2nd floor for blood work. Then come to our office. Please bring your BOTTLES of medications and parking ticket in for validation. * Discharge Instr - Diet - Carmelina Coppola RN - 05/12/2023 11:01 PM EDT Your food may taste funny. This is normal. It will go away. * Discharge Instr - Activity - Carmelina Coppola RN - 05/12/2023 11:01 PM EDT Take a shower every day. Use a clean wash cloth on your incisions every day. Wash your incisions before you wash anywhere else on your body. Do NOT use Neosporin, Peroxide, Betadine or other ointments on your incisions. Do NOT lift, push or puller over 5 pounds for six weeks. [address] NOT drive until your physician gives you approval. Move around as you are able. No activity that tires you out. You can sleep on your side if it is comfortable. You can ride in the front seat of the car. You canraise both arms at the same time. * Discharge Instr - AVS First Page - Carmelina Coppola RN - 05/12/2023 11:01 PM EDT Temperature 101.5 or greater. Incisions coming open or draining pus. Pain not relieved by medications. Increased shortness of breath. Increased swelling. For questions or concerns, please contact.... Ester Neff RN [phone] Monday through Monday 8 AM - 5 PM [facility] [phone] after 5 PM, weekends and holidays - ask for the CT surgeon intervention teacher. * H&P - Nory Michele APRN - 05/12/2023 3:38 PM EDTAssociated Order(s): Critical Care Post-Procedure Diagnose(s): S/P CABG x 3; Acute respiratory failure with hypoxia (CMS/HCC); CAD in [place] artery Critical Care Performed by: Nory Michele APRN Authorized by: Nory Michele APRN Critical care provider statement: Critical care time (minutes): 40 Critical care time was exclusive of: Separately billable procedures and treating other patients Critical care was time spent personally by me on the following activities: Development of treatmentplan with patient or surrogate, examination of patient, ordering and review of radiographic studies, ordering and review of laboratory studies and evaluation of patient's response to treatment I assumed subsequent critical care for this patient from a provider in my division, on the same day: no Comments: The patient is critically ill with: acute hypoxic respiratory failure, CAD, CABGx 3, HTN, HLD, COPD, anemia. They require complex decision making. The patient was seen on rounds with critical care physician, Dr. Jori Peck MD and they are in agreement with the plan of care. Pharmacy, respiratory and nursing services were present on rounds. 05/12/23 Ivis Noriega is a 77 y.o. male who presents with CAD in [place] artery. If applicable, patient is s/p Procedure(s) and Anesthesia Type: * CABG - General. Patient is Day of Surgery with Cardiothoracic Surgery. Past 24 hours: HPI: The patient is a 77 yo male with mv CAD that was referred to Dr. Mckeon for evaluation for CABG in setting of CABG for [facility]EROY lung cancer (2014 and 2021). He has a PMHx that is significant for coronary artery disease status post stents ([id number], LAD, circumflex and RCA), tobacco use disorder inremission since 2003. Had a [facility] with mv CAD and stent restenosis of his LAD, RCA and circ. Patient admitted on 05/12/23 for planned CABG with Dr. Mckeon, underwent 3v CABG. Operative course is outlinedbelow, admitted to the ICU for ongoing post- operative care. Intra Op: Intraoperatively, received 1500 mL of crystalloid, 210 mL of cell saver and no blood products. No significant events occurred intraoperatively. No pressors required. Total time on pump was 120 minutes. Postoperative NISHA not performed. The pt received 3100/7 of Fentanyl/Versed. Airway was easy. The pt arrived intubated on no drips. AM: 20 K replaced, PS trial, reversed, NTG for HTN Edited by: Carmelina Sainz, [employer] at 05/12/2023 1526 Lines/Drains/Tubes: Patient Lines/Drains/Airways Status Active Active LDAs Name Placement date Placement time Site Days CVC Double Lumen 05/12/23 Right Internal jugular 05/12/23 0800 Internal jugular less than 1 Peripheral IV 05/12/23 Posterior;Right Hand 05/12/23 0630 Hand less than 1 Chest Tube Pleural;Mediastinal 36 Fr 05/12/23 1404 Pleural;Mediastinal less than 1 Urethral Catheter Non-latex;Temperature probe 16 Fr. 05/12/23 0733 -- less than 1 Y Chest Tube 1 and 2 1 Left Pleural 28 Fr. 2 Right Pleural 28 Fr. 05/12/23 1404 -- less than 1 ETT ETT - single 8.5 mm 05/12/23 0728 Oral less than 1 Arterial Line 05/12/23 Left Radial 05/12/23 0833 Radial less than 1 Pulmonary Artery Catheter 05/12/23 Internal jugular Right 05/12/23 0834 Internal jugular less than 1 GCS: [place] Coma Scale Score: 15 Review of Systems 14 point ROS reviewed and otherwise negative or unobtainable except as noted above or in HPI. Vital signs: Vitals: 05/12/23 0643 BP: (!) 140/72 Pulse: Resp: Temp: SpO2: Intake/Output Summary (Last 24 hours) at 05/12/2023 1539 Last data filed at 05/12/2023 1410 Gross per 24 hour Intake 920 ml Output 1740 ml Net -820 ml Physical Exam: Physical Exam HENT: Head: Normocephalic. Mouth/Throat: Mouth: Mucous membranes are moist. Eyes: Extraocular Movements: Extraocular movements intact. Conjunctiva/sclera: Conjunctivae normal. Pupils: Pupils are equal, round, and reactive to light. Cardiovascular: Rate and Rhythm: Normal rate and regular rhythm. Pulses: Normal pulses. Heart sounds: Normal heart sounds. Pulmonary: Effort: Pulmonary effort is normal. Breath sounds: Normal breath sounds. Comments: Intubated, on mechanical ventilation Musculoskeletal: General: Normal range of motion. Cervical back: Normal range of motion. Skin: General: Skin is warm and dry. Capillary Refill: Capillary refill takes less than 2 seconds. Comments: Midsternal incision, SVG sites, chest tube sites. Neurological: General: No focal deficit present. Mental Status: He is alert. Comments: FC and responding appropriately to questions with nods, intubated Labs in last 18 hours: CBC WBC 9.42 Hb 10.7 (L); 10.7 (L) Plt 145 (L) Hct 34.0 (L); 34.0 (L) ANC ?? INR ??, PTT ??, Anti-Xa ?? BMP Na 139 Cl 107 BUN 14 Glu 102 (H) K 4.2 Co2 22 Cr 1.12 Ca 9.5 iCa 4.6 Mg ??, Phos ?? Lactate 1.7 (H) LFT AST ?? AlkPhos ?? T Prot ?? ALK ?? Bili ?? Alb ?? D.Bili ?? Imaging as available: === 05/04/23 === XR CHEST 2 VIEWS - Narrative - CLINICAL INDICATION: Coronary artery disease TECHNIQUE: XR CHEST 2 VIEWS COMPARISON: 04/17/2023 CT chest, 05/20/2014 chest radiograph FINDINGS: Stable mildly enlarged cardiac silhouette and mediastinal contours. Left upper lung region of scarring and atelectasis with elevation of left hemidiaphragm. No pleural effusion or consolidation. Increased left basal atelectasis or consolidation. Mild degenerative changes of thoracic spine. - Impression - Left upper lobe medial volume loss and scarring with elevated left hemidiaphragm. CRITICAL RESULT: No. COMMUNICATION: Per this written report. By electronically signing this report, I, the attending physician, attest that I have personally reviewed the images/data for the above examination(s) and agree with the final edited report. Drafted by Angelito Talavera MD on 05/04/2023 3:11 PM Final report signed by Baljinder Morrissey MD on 05/04/2023 5:00 PM Reviewed and agree with above. Assessment and Plan: This patient is critically ill. Medical Problems Problem List * (Principal) CAD in [place] artery Overview Addendum 05/12/2023 3:17 PM by Carmelina Sainz APRN -S/P PCI -[facility] 04/27/23: LAD stent open, LMA stent 80% stenosis, circ with RCA stent #1 and #2 in prox and mid. 50% stenosis of prox, 70% stenosis distal. Circ stent with 90% stenosis prox to obtuse 1 and 2. -S/P 3 v CABG per [facility] [place] 05/12/23 - GDMT 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) Osteoporosis CAD (coronary artery disease) Primary hypertension Overview Addendum 05/12/2023 3:19 PM by Carmelina Sainz APRN Resume home meds when appropriate HLD (hyperlipidemia) HHD (hypertensive heart disease) PAD (peripheral artery disease) ([facility]) S/P CABG x 3 Overview Signed 05/12/2023 3:18 PM by Carmelina Sainz APRN ASA and statin tonight Eval tomorrow for BB Acute postoperative pain Overview Signed 05/12/2023 3:19 PM by Carmelina Sainz APRN MM pain control Electrolyte disturbance Overview Signed 05/12/2023 3:19 PM by Carmelina Sainz APRN Lytes post OR and replace or manage per protocol History of thoracic irradiation Overview Signed 05/12/2023 3:21 PM by Carmelina Sainz APRN Left chest wall Rad Tx 2021 - No PEÑA used - See op note for grafts used COPD (chronic obstructive pulmonary disease) ([facility]) Overview Addendum 05/12/2023 3:21 PM by Carmelina Sainz APRN Resume home meds when appropriate Duonebs while inpatient Acute respiratory failure with hypoxia ([facility]) Overview Signed 05/12/2023 3:21 PM by Carmelina Sainz APRN Intubated for OR 05/12/23 To ICU with sedation post Op Evaluate for fast track extubation Hyperglycemia Overview Signed 05/12/2023 3:23 PM by Carmelina Sainz APRN A1c is 4.9 pre-op - Hyperglycemia post op - Insulin gtt overnight as needed. Thrombocytopenia ([facility]) Overview Signed 05/12/2023 3:25 PM by Carmelina Sainz APRN Post-op, mild, expected CTM Other specified anemias Overview Signed 05/12/2023 3:27 PM by Carmelina Sainz APRN Hgb 13 pre-op, down to 10.5 intra and post op. - No transfusions in OR - Trend per protocol Nory Michele APRN * Care Plan - Pablo Levine - 05/12/2023 2:57 PM EDT Ongoing Vent Mgt Protocols * Op Note - Pablo Mckeon MD - 05/12/2023 8:35 AM EDT Operative Note Median sternotomy, coronary artery bypass grafting x2, endoscopic vein harvest- right lower extremity-greater saphenous. -Vein from the ascending aorta to the distal right coronary artery. -Right internal mammary artery composite graft to vein distally to left anterior descending coronary artery. Date: 05/12/23 Location: [place] [facility] Name: Ivis Noriega, : 1945, Diagnoses: Pre-op Diagnosis CAD (coronary artery disease) Patient Active Problem List Diagnosis 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) Osteoporosis CAD (coronary artery disease) Primary hypertension HLD (hyperlipidemia) HHD (hypertensive heart disease) PAD (peripheral artery disease) (CMS/HCC) CAD in [place] artery S/P CABG x 3 Acute postoperative pain Electrolyte disturbance History of thoracic irradiation COPD (chronic obstructive pulmonary disease) (CMS/HCC) Acute respiratory failure with hypoxia (CMS/HCC) Hyperglycemia Thrombocytopenia (CMS/HCC) Other specified anemias Post-op Diagnosis CAD (coronary artery disease) Patient Active Problem List Diagnosis 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) Osteoporosis CAD (coronary artery disease) Primary hypertension HLD (hyperlipidemia) HHD (hypertensive heart disease) PAD (peripheral artery disease) (CMS/HCC) CAD in [place] artery S/P CABG x 3 Acute postoperative pain Electrolyte disturbance History of thoracic irradiation COPD (chronic obstructive pulmonary disease) (CMS/HCC) Acute respiratory failure with hypoxia (CMS/HCC) Hyperglycemia Thrombocytopenia (CMS/HCC) Other specified anemias Procedure(s): Median sternotomy, coronary artery bypass grafting x2, endoscopic vein harvest- right lower extremity-greater saphenous. -Vein from the ascending aorta to the distal right coronary artery. -Right internal mammary artery composite graft to vein distally to left anterior descending coronary artery. Attending Surgeon(s): * Pablo Mckeon - Primary * Andrea Coppola - Assisting Casting Wheel Operator Helper(s): Andrea Coppola [facility] 1st assisted and performed endoscopic vein harvest Residents were available to assist on this case. Anesthesia: General ASA: IV Blood Administration: Blood Product Administration History None Estimated Blood Loss: 300 mL Drains: Chest Tube Pleural;Mediastinal 36 Fr (Active) Output (mL) 10 mL 05/12/23 1600 Urethral Catheter Non-latex;Temperature probe 16 Fr. (Active) Site Assessment Clean;Skin intact 05/12/23 1500 CAUTI: Collection Container Standard drainage bag 05/12/23 1500 CAUTI: Securement Method Securing device (Describe) 05/12/23 1500 CAUTI: Specimen Collection Port Covered with Alcohol Cap Yes 05/12/23 1500 CAUTI: Urinary Catheter Necessity Yes, meets criteria 05/12/23 1500 CAUTI: Urinary Catheter Necessity Reasons Q1-2 hourly urine output of critically ill patient 05/12/23 1500 Output (mL) 40 mL 05/12/23 1600 Y Chest Tube 1 and 2 1 Left Pleural 28 Fr. 2 Right Pleural 28 Fr. (Active) Output (mL) 10 mL 05/12/23 1600 Specimen: None Findings: Patient heart was somewhat enlarged. Ventricular function appeared preserved. The left anterior descending coronary artery downstream from the last diagonal was a good-sized vessel and grafted easily. The distal right coronary artery was teased out until it is bifurcation and anastomosed at that level. There were still plaque beyond that level the entire arterial tree per palpation of vessels. Patient from cardiopulmonary bypass uneventfully. Indications: Ivis Noriega is an 77 y.o. male who is having surgery for CAD (coronary arterydisease). He has had stents placed in the past. He also has suffered a lung cancer identified in 2014. In 2021 he had radiation to his left upper lobe area. He has been complaining of shortness of breath and willian angina. Placed in his left main, left anterior descending coronary artery, and circumflex coronary artery. Left main was open nicely. He had severe InStent stenosis in his left anteriordescending coronary artery and his circumflex coronary artery. His LAD was opened downstream from his last diagonal branch. There were 2 obtuse marginals coming off the non dominant circumflex circulation both of which were very small. His [place] right coronary artery had proximal and distal lesions. There appeared to be adequate targets downstream in his right. His chest radiation had been primarily on the upper chest on his left side. The skin on his chest appeared to be normal without evidence of radiation injury along the midline. His percutaneous options had had come to an end. We felt that his primary issue would be his InStent stenosis of the LAD and if we fix that he would likely not have angina. Risks benefits and alternatives were reviewed with Mr. Hubbard and daughter present. They felt that we should go forward with surgical intervention so he might be a to enjoy his life without angina. Narrative: The patient was taken to the operating room and placed on the table in the supine position. Initialmonitoring lines were placed by our anesthesia colleagues. General endotracheal anesthesia was induced, monitoring lines were placed, a [place] catheter was floated into position and a transesophageal echo probe was positioned by Anesthesia. The patient was then centered on the operating room table. Pressure points were padded. Patient was then prepped and draped in a sterile manner from chin to ankles, a time-out was called and the patient was identified, the proposed procedure was announcedand confirmed by all in the room. Antibiotics were confirmed to have been administered. Incision was made on the right lower extremity just below the knee. The right greater saphenous vein was dissected free. The endoscope was placed over the vein and used to bluntly dissect the vein from surrounding tissue. Once the initial dissection was completed a bipolar device was attached to the scope. The branches of the vein were divided and cauterized with the bipolar device. Soft tissue surrounding and connected to the vein was then removed and cauterized using the bipolar device. Once the vein was completely mobilized it was endoscopically tied on the groin side and tied under directvision distally. The vein was then transected using the bipolar device proximally and the scissors d istally. It was then extracted from the leg and immediately cannulated with a vessel cannula and flushed with vein solution which was heparinized. The branches of the vein were then tied with 4-0 silk ties, controlled with Ligaclips, or suture ligated with 7 0 Prolene as indicated. Hemostasis was then checked. The leg was then closed in deep layers of Vicryl. The skin was reapproximated with a subcuticular stitch of Monocryl. At the end of the case the endoscopic vein tunnel was rolled with a towel expressing any accumulated blood out of the incision. It was then sealed with Dermabond. A dressing was applied and Kelsie wrap was applied to the leg. A median sternotomy incision was made. Electrocautery was used dissect down to the anterior table of the sternum. The lower part of the manubrium was identified. The fascial plane and mid manubrium was dissected through with electrocautery into a clear space underneath the sternum. The midline was i dentified and she has and deepened to stay in the midline to the xiphoid. Anesthesiologists were asked hold ventilation and the sternum was then divided with an oscillating saw. Ventilations were then resumed. Hemostasis was achieved on the sternal edge with electrocautery. Bone wax was used sparingly to stop the bleeding from the bone marrow. The Rultract retractor was placed on the patient's right side and the right sakina sternum elevated gently. Electrocautery was used dissect laterally and enter the pleural space. The pleural space was widely opened visualization. The internal mammary artery was identified. The electrocautery power was turned down to 25. An incision was made with cautery between the internal mammary artery and its la teral vein. The mammary was teased away from surrounding structures. It was then mobilized using anin situ skeletonization technique. Very little cautery was used on the chest wall. Hemostasis was achieved with Ligaclips for branches of the mammary artery and point hemorrhage for any ???field?? bleeding. The mammary was mobilized distally to its bifurcation, and proximally to the point were it would fall underneath the lung was not be pushed up to the chest wall once ventilations were begun post anastomosis. Once the GINGER was completely mobilized it was sprayed with a papaverine solution. Atthe appropriate time (once we were sure to all was ready to go on cardiopulmonary bypass) heparin was administered and the GINGER subsequently triply clipped distally next the chest wall and singly clipped within a cm these clips and divided between these 2 sets of clips. It was then laid on the chestwall underneath papaverine soaked sponge. The mammary bed was then examined for bleeding and bleeding controlled. The Rultract retractor was then removed and placed on the back table for future use,.The mammary artery appeared to be a suitable conduit. Wound towels were placed along the sternal edges. The Aesculap retractor was inserted in the sternum spread open. The pericardium was opened stay sutures were placed. Requested to be administered by our anesthesia colleagues. They confirmed verbally that the heparin had been administered. The Ascending aorta was palpated and felt to be adequate for cannulation. A pursestring suture was in the ascending aorta and snared with tourniquet. With ACTs above 400 and counting and aortic cannula was inserted into the ascending aorta and controlled with a Nj tourniquet. The cannula and tourniquet were tied together and the cannula secured to the wound towel and to the arterial inflow tubing secured by the patient's side. A pursestring suture was placed around the auricle of the right atrium. An incision was made in the auricle and venous cannula placed and positioned with its tip inthe inferior vena cava. This was similarly secured with a Rumel tourniquet. A 4-0 horizontal pledgeted mattress suture was placed in the ascending aorta and antegrade cardioplegia catheter with a side vent was placed and secured with a Nj tourniquet. 100 mL of pump prime was then infused. Pressure on the pump came back to normal. There is no evidence of dissection or adverse effect on the aorta. A CTs were once again confirmed to be above 400. Cardiopulmonary bypass was then instituted. Systemic cooling was begun. The heart became bradycardic. Cold oxygenated blood antegrade cardioplegia was infused. Ice was placed on the right ventricle. The heart fibrillated. An aortic cross-clamp wasplaced. 1 L of cold oxygenated blood cardioplegia was infused resulting in asystole. From this point forward cardioplegia was administered every 20 minutes throughout the entire cross-clamp or as needed for electrical or were mechanical cardiac activity. The distal right coronary artery was dissected out in the AV groove and followed to its bifurcation. An incision was made in this vessel in the incision extended with the Newman scissors. A vein to artery anastomosis was then constructed with a running 7 0 Prolene suture. Runoff via hand injection with a syringe was excellent with a hemostatic anastomotic site. Dissection to find this portion of the vessel was then oversewn with a running 6 0 Prolene suture for hemostatic purposes. The circumflex territory was approached. We felt the stent that had been placed in the circumflex and retracted to its end. At that point there were 2 very small vessels which had been seen on angiography. When we dissected these vessels out of the fatty plane it was clear that there were 2 small for bypass grafting. We did not put a graft in this territory. An incision was made in the ascending aorta with a 4.5 mm punch. The proximal anastomosis of the right coronary artery graft was performed with a running 6 0 Prolene suture. A portion of vein was brought up onto the field. The the right internal mammary artery was not longenough to be anastomosed to the downstream left anterior descending coronary artery. We did not used the left internal mammary artery because its proximal area was likely in the radiation zone. We anastomosed this portion of vein directly to the left anterior descending coronary artery. We then took the right internal mammary artery and anastomosed it to this vein graft provide inflow to the leftanterior descending coronary artery via the vein graft. Opening the bulldog clamp that was holding the right internal mammary closed resulted in excellent flow into the LAD. Temporary pacing wires were placed. Warm antegrade cardioplegia was administered vein grafts were de-aired. Pump flows were brought down and the aortic crossclamp was removed the bulldog clamp on theright internal mammary artery was removed. Pump flows were brought back up. The patient was allowedto reperfuse for about 15 minutes. He was then slowly weaned from cardiopulmonary bypass. Once off bypass and stable cannulas removed and protamine was administered. Hemostasis appeared to be adequate. Search for point hemorrhage was undertaken including on the right chest wall with the mammary had been harvested. All looked hemostatic. 1-36 Italian mediastinal tube was placed, 1-right 28 Italian pleural tube was placed, and 1-left 28 Italian pleural tube was placed. Chest tubes and pacing wires were secured to the anterior abdominal wall. The sternum was reapproximated with interrupted [id number] stainless steel wire 7. Fascia was closed with a running PDS suture. Subcutaneous tissues were closed with Vicryl. Skin was reapproximated with a subcuticular stitch of Monocryl. Dermabond was applied the skin. Dressings were applied to the incision. The patient remained hemodynamically stable. He received no intraoperative blood transfusions and require any vasopressor agents to weaned from bypass. The patient was gently moved onto intensive care unit bed. He was transported to the intensive care unit hemodynamically stable on no inotropic support. This concludes operative summary Dr. Mckeon dictating thank you Complications: None; patient tolerated the procedure well. Submitted by: Pablo Mckeon MD - 05/12/2023 * H&P - Delon Law MD - 05/12/2023 6:35 AM EDT Patient seen and examined in pre-op holding area. No significant change from clinic visit 05/04/23. H&P from that clinic visit is copied below for reference. Medications held as instructed. Consent scanned into chart. Proceed to OR today for CABG. Cardiac Surgery H&P Reason for visit / Chief Complaint: Coronary artery disease History of present illness: Ivis Noriega is a 77 y.o. male referred to us in consultation by Dr. Gaffney in regards tocoronary artery disease. Mr. Noriega has a past medical history significant for coronary artery disease status post stents ([id number], LAD, circumflex and RCA) and left upper lobe lung cancer (status post radiation treatment (2014 and 2021), and history of tobacco use (40+ years, quite in 2004). He reports that he has had exertional chest pain/pressure and dyspnea with exertion that has progressed over the past few months. It occurs with any exertion. He also has noticed dizziness over the past few months when he stands up. He underwent left heart cath which showed multivessel coronary disease, in stent restonsis of his LAD, circumflex and RCA. He was referred to our clinic for surgical evaluation. Medical History His chronic comorbid conditions that impact our treatment planning include: Cardiac Surgery: The comorbid conditions that impact and complicate our treatment planning include:Peripheral Vascular Disease (inclusive of atherosclerotic disease of the lower extremities) Atherosclerosis, Non-peripheral Lung cancer, radiation to chest Active Problems: Patient Active Problem List Diagnosis Date Noted Osteoporosis 05/03/2023 CAD (coronary artery disease) 05/03/2023 HLD (hyperlipidemia) 05/03/2023 HHD (hypertensive heart disease) 05/03/2023 PAD (peripheral artery disease) (CMS/HCC) 05/03/2023 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) 07/30/2020 Hypertension 06/19/2014 Medical History: Past Medical History: Diagnosis Date CAD (coronary artery disease) 05/03/2023 Conversions - Other Bloating Conversions - Other Diarrhea (Symptom) HLD (hyperlipidemia) 05/03/2023 Hypertension 06/19/2014 Lung cancer (CMS/HCC) radiation tx 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) 07/30/2020 Osteoporosis 05/03/2023 Surgical History: Surgical History Past Surgical History: Procedure Laterality Date CARDIAC CATHETERIZATION CHOLECYSTECTOMY N/A Cholecystectomy from [email or web address] CORONARY STENT PLACEMENT 2021 PTCA with brachy therapy Cx KNEE SURGERY N/A Knee Surgery from [email or web address] OTHER SURGICAL HISTORY N/A Transcath Intravascular Stent Placement Percutaneous Femoral from [email or web address] RADIATION THERAPY 2014 and 2021 WRIST FRACTURE SURGERY Left pins Social History: Tobacco: Tobacco Use: Medium Risk (05/04/2023) Patient History Smoking Tobacco Use: Former Smokeless [...] Start Date End Date Taking? Authorizing Provider albuterol 108 (90 Base) MCG/ACT inhaler Inhale 2 puffs 4 (four) times a day if needed for wheezing.Yes Ciarra Queen MD aspirin 81 MG chewable tablet Chew 1 tablet (81 mg) 1 (one) time each day. Yes Ciarra Queen MD atorvastatin (Lipitor) 80 MG tablet TAKE 1 TABLET BY MOUTH ONCE DAILY FOR HYPERLIPIDEMIA 06/05/20 Yes Ciarra Queen MD azelastine (Astelin) [...] every 6 months Yes Ciarra Queen MD finasteride (Proscar) 5 MG tablet Take 1 tablet (5 mg) by mouth 1 (one) time each day. 06/16/20 Yes Ciarra Queen MD metoprolol succinate XL (Toprol-XL) 50 MG 24 hr tablet Take 1 tablet (50 mg) by mouth 1 (one) time each day. 10/03/22 Yes Ciarra Queen MD metoprolol tartrate (Lopressor) 25 MG tablet Take 1 tablet (25 mg) by mouth. Yes Ciarra Queen MD Probiotic Product (PROBIOTIC BLEND PO) 1 cap(s) orally once a day Yes Ciarra Queen MD spironolactone (Aldactone) 25 MG tablet 1 tablet (25 mg). //Sat 05/19/20 Yes Ciarra Queen MD Tiotropium [place] Monohydrate (Spiriva Respimat) 2.5 MCG/ACT inhaler Inhale 2 puffs 2 (two) times a day. Yes Ciarra Queen MD oseltamivir (Tamiflu) 75 MG capsule 04/10/23 05/04/23 Ciarra Queen MD ranolazine (Ranexa) 1000 MG 12 hr tablet Take 500 mg by mouth 2 (two) times a day. Patient not taking: Reported on 05/04/2023 07/02/21 05/04/23 Provider, MD Rivas Lafleurta 100-62.5-25 MCG/ACT aerosol powder Inhale 1 puff. Patient not taking: Reported on 05/04/2023 02/08/23 05/04/23 Provider, MD Ciarra Physical exam: Visit Vitals BP 120/72 Pulse 68 Ht 1.727 m (5' 8 ) Wt 75.3 kg (166 lb) SpO2 99% BMI 25.24 kg/m?? Physical Exam Vitals reviewed. Constitutional: General: He is not in acute distress. Appearance: Normal appearance. HENT: Head: Normocephalic and atraumatic. Nose: Nose normal. Eyes: Extraocular Movements: Extraocular movements intact. Cardiovascular: Rate and Rhythm: Normal rate and regular rhythm. Pulses: Normal pulses. Heart sounds: Normal heart sounds. No murmur heard. No friction rub. No gallop. Pulmonary: Effort: Pulmonary effort is normal. No respiratory distress. Breath sounds: Normal breath sounds. Musculoskeletal: General: Normal range of motion. Cervical back: Neck supple. Right lower leg: No edema. Left lower leg: No edema. Skin: General: Skin is warm and dry. Neurological: General: No focal deficit present. Mental Status: He is alert and oriented to person, place, and time. Psychiatric: Mood and Affect: Mood normal. Behavior: Behavior normal. Labs in last 18 hours: Latest Reference Range & Units 05/04/23 11:18 WBC 3.70 - 10.30 10*3/uL 8.62 RBC 4.60 - 6.10 10*6/uL 4.79 Hemoglobin 13.7 - 17.5 g/dL 13.1 (L) Hematocrit 40.0 - 51.0 % 44.4 Platelet Count 155 - 369 10*3/uL 242 MCV 79 - 98 fL 93 MCH 26.0 - 32.0 pg 27.3 MCHC 30.7 - 35.5 g/dL 29.5 (L) RDW 11.5 - 14.5 % 14.0 MPV 8.8 - 12.5 fL 10.7 nRBC <=0.0 per 100 WBCs 0.0 Prothrombin Time 12.0 - 14.3 sec 13.4 INR 0.9 - 1.1 1.0 Glucose 74 - 99 mg/dL 108 (H) Sodium 136 - 145 mmol/L 141 Potassium 3.7 - 4.8 mmol/L 5.4 (H) Chloride 97 - 107 mmol/L 107 CO2 22 - 29 mmol/L 24 Creatinine 0.80 - 1.30 mg/dL 1.03 Anion Gap 6 - 16 mmol/L 10 BUN 8 - 23 mg/dL 11 BUN/Creatinine Ratio 11 EGFR mL/min/1.73m*2 75.8 Calcium 8.9 - 10.2 mg/dL 10.4 (H) Albumin 3.5 - 5.2 g/dL 4.1 Total Protein 6.3 - 7.9 g/dL 7.3 ALT, Plasma 10 - 50 U/L 13 AST, Plasma 10 - 50 U/L 21 Total Bilirubin, Plasma 0.2 - 1.1 mg/dL 0.5 Alkaline Phosphatase 40 - 115 U/L 118 (H) Hemoglobin A1C <5.7 % 4.9 ABO/Rh O Positive Antibody Screen Negative Specimen Expiration 05/07/2023 23:59 30 Day Eligibility See Comment (L): Data is abnormally low (H): Data is abnormally high Imaging: PFTs- full report in media tab T.[email or web address] Cardiac Cath Results: Left main: widely patent proximal stent with extends to the LAD LAD: has as tent which extends from the left main, concentric 80% in-stent restenotic lesion, remaining LAD patent Circumflex is non dominant, with 2 OM's, 90% concentric in-stent restonotic lesion just proximal tothe 1st and 2nd OM RCA: dominant vessel, stents in the proximal and mid segment. 50% stenosis in the proximal portion,focal distal 70% stenosis. Impression: Ivis Noriega is a 77 y.o. male referred to us in consultation by Dr. Gaffney in regards to coronary artery disease. Mr. Noriega has a past medical history significant for coronary artery disease status post stents ([id number], LAD, circumflex and RCA) and left upper lobe lung cancer (status post radiation treatment (2014 and 2021), and history of tobacco use (40+ years, quitein 2004). We discussed surgical revascularization. Risks of procedure discussed with patient, risks include but are not limited to infection, poor wound healing, bleeding, stroke, arrhythmias, injury to heart and other organs, and . Additional risks related to the use of blood products, including reaction and infection. We discussed we will not use his left internal mammary secondary to radiation field. We will likelyuse right internal mammary and vein to do his bypasses. He understands this. Plan: Scheduled for coronary artery bypass grafting on May 11 Last dose of plavix May 05 Consent and pre-op testing done today Cosigned by Pablo Mckeon MD at 05/12/2023 8:10 AM EDT Associated attestation - Pablo Mckeon MD - 05/12/2023 8:10 AM EDT I saw and evaluated the patient with the resident/fellow. I discussed the case with the resident/fellow and agree with the findings and plan as documented. documented in this encounter Plan of Treatment Upcoming Encounters Date Type Department Care Team (Late st Contact Info) Description 01/15/2024 10:00 AM EST Ancillary Procedure [facility] [address] [place] [address] 01/15/2024 11:00 AM EST Consult [facility] [address], [address] [place] [address] Ida Nayak PA [address] [facility] [address] [place] [address] 06/19/2024 11:00 AM EDT Appointment [facility] [id number] [place] [address] Leandro Seaman MD [id number] [place] [id number] Pending Results Name Type Priority Associated Diagnoses Date /Time Prepare Leukocyte Reduced RBC: 2 Units Blood Bank STAT 05/12/2023 9:35 AM EDT Scheduled Referrals Name Type Priority Associated Diagnoses Order Schedule Discharge Ambulatory referral to Cardiac Rehab Outpatient Referral Routine S/P CABG (coronary artery bypass graft) 1 Occurrences starting 05/16/2023 until 05/15/2024 documented as of this encounter Procedures Procedure Name Priority Date/Time Associated Diagnosis Comments XR CHEST 2 VIEWS Routine 05/16/2023 6:30 AM EDT CBC W/O DIFFERENTIAL Routine 05/16/2023 2:41 AM EDT MAGNESIUM, PLASMA Routine 05/16/2023 2:4 1 AM EDT COMPREHENSIVE METABOLIC PANEL, PLASMA Routine 05/16/2023 2:41 AM EDT PEP THERAPY Routine 05/15/2023 2:00 PM EDT PEP THERAPY Routine 05/15/2023 10:00 AM EDT OXYGEN THERAPY Routine 05/15/2023 8:00 AM EDT PEP THERAPY Routine 05/15/2023 6:00 AM EDT CBC W/O DIFFERENTIAL Routine 05/15/2023 1:45 AM EDT MAGNESIUM, PLASMA Routine 05/15/2023 1:4 5 AM EDT BASIC METABOLIC PANEL, PLASMA Routine 05/15/2023 1:45 AM EDT XR CHEST 1 VIEW Routine 05/15/2023 1:40 AM EDT PEP THERAPY Routine 05/14/2023 10:00 PM EDT POCT GLUCOSE METER UNSOLICITED RESULTS Routine 05/14/2023 8:36 PM EDT OXYGEN THERAPY Routine 05/14/2023 8:00 PM EDT PEP THERAPY Routine 05/14/2023 6:00 PM EDT POCT GLUCOSE METER UNSOLICITED RESULTS Routine 05/14/2023 4:43 PM EDT PEP THERAPY Routine 05/14/2023 2:00 PM EDT POTASSIUM, PLASMA Routine 05/14/2023 1:1 2 PM EDT POCT GLUCOSE METER UNSOLICITED RESULTS Routine 05/14/2023 12:07 PM EDT PEP THERAPY Routine 05/14/2023 10:00 AM EDT OXYGEN THERAPY Routine 05/14/2023 8:00 AM EDT POCT GLUCOSE METER UNSOLICITED RESULTS Routine 05/14/2023 7:53 AM EDT PEP THERAPY Routine 05/14/2023 6:00 AM EDT XR CHEST 1 VIEW Routine 05/14/2023 2:43 AM EDT CBC W/O DIFFERENTIAL Routine 05/14/2023 1:07 AM EDT PHOSPHORUS, PLASMA Add-On 05/14/2023 1: 07 AM EDT MAGNESIUM, PLASMA Add-On 05/14/2023 1:0 7 AM EDT BLOOD GAS PANEL, ARTERIAL Routine 05/14/2023 1:07 AM EDT BASIC METABOLIC PANEL, PLASMA Routine 05/14/2023 1:07 AM EDT PEP THERAPY Routine 05/13/2023 10:00 PM EDT OXYGEN THERAPY Routine 05/13/2023 8:00 PM EDT PEP THERAPY Routine 05/13/2023 6:00 PM EDT POCT GLUCOSE METER UNSOLICITED RESULTS Routine 05/13/2023 4:45 PM EDT PEP THERAPY Routine 05/13/2023 2:00 PM EDT POCT GLUCOSE METER UNSOLICITED RESULTS Routine 05/13/2023 12:02 PM EDT PEP THERAPY Routine 05/13/2023 10:00 AM EDT CBC W/O DIFFERENTIAL Routine 05/13/2023 9:13 AM EDT MAGNESIUM, PLASMA Routine 05/13/2023 9:1 3 AM EDT RENAL FUNCTION PANEL, PLASMA Routine 05/13/2023 9:13 AM EDT POCT GLUCOSE METER UNSOLICITED RESULTS Routine 05/13/2023 9:05 AM EDT POCT GLUCOSE METER UNSOLICITED RESULTS Routine 05/13/2023 8:33 AM EDT POCT GLUCOSE METER UNSOLICITED RESULTS Routine 05/13/2023 8:32 AM EDT OXYGEN THERAPY Routine 05/13/2023 8:00 AM EDT POCT GLUCOSE METER UNSOLICITED RESULTS Routine 05/13/2023 6:36 AM EDT PEP THERAPY Routine 05/13/2023 6:00 AM EDT XR CHEST 1 VIEW Routine 05/13/2023 5:44 AM EDT ECG ADULT Routine 05/13/2023 4:13 AM EDT POCT GLUCOSE METER UNSOLICITED RESULTS Routine 05/13/2023 2:01 AM EDT HEMOGLOBIN Timed 05/13/2023 12:17 AM EDT HEMATOCRIT, BLOOD Timed 05/13/2023 12: 17 AM EDT POTASSIUM, PLASMA Timed 05/13/2023 12: 17 AM EDT PHOSPHORUS, PLASMA Add-On 05/13/2023 12 :17 AM EDT MAGNESIUM, PLASMA Add-On 05/13/2023 12: 17 AM EDT BLOOD GAS PANEL, ARTERIAL Timed 05/13/2023 12:17 AM EDT OK CRITICAL CARE, ADDL 30 MIN Routine 05/12/2023 11:50 PM EDT Acute respiratory failure with hypoxia (CMS/HCC) OK CRITICAL CARE, ADDL 30 MIN Routine 05/12/2023 11:50 PM EDT Acute respiratory failure with hypoxia (CMS/HCC) BLOOD GAS PANEL, ARTERIAL Timed 05/12/2023 10:29 PM EDT PEP THERAPY Routine 05/12/2023 10:00 PM EDT OXYGEN THERAPY Routine 05/12/2023 9:18 PM EDT OXYGEN THERAPY Routine 05/12/2023 9:18 PM EDT EXTUBATION Routine 05/12/2023 9:06 PM EDT CBC W/O DIFFERENTIAL Routine 05/12/2023 8:09 PM EDT HEMOGLOBIN Timed 05/12/2023 8:09 PM EDT HEMATOCRIT, BLOOD Timed 05/12/2023 8:0 9 PM EDT POTASSIUM, PLASMA Timed 05/12/2023 8:0 9 PM EDT BLOOD GAS PANEL, ARTERIAL Timed 05/12/2023 8:09 PM EDT BASIC METABOLIC PANEL, PLASMA Routine 05/12/2023 8:09 PM EDT PEP THERAPY Routine 05/12/2023 6:00 PM EDT BLOOD GAS PANEL, ARTERIAL Timed 05/12/2023 5:38 PM EDT VENTILATOR - ADULT Routine 05/12/2023 4: 51 PM EDT BLOOD GAS PANEL, ARTERIAL Timed 05/12/2023 4:01 PM EDT BLOOD GAS PANEL WITH OXIMETRY, MIXED VENOUS Routine 05/12/2023 3:59 PM EDT OK CRITICAL CARE, E/M 30-74 MINUTES Routine 05/12/2023 3:38 PM EDT Acute respiratory failure with hypoxia (CMS/HCC) S/P CABG x 3 CAD in [place] artery XR CHEST 1 VIEW STAT 05/12/2023 3:10 PM EDT MONICO AURIS SURVEILLANCE BY PCR Routine 05/12/2023 2:58 PM EDT MULTI DRUG RESISTANCE TEST Routine 05/12/2023 2:58 PM EDT BLOOD GAS PANEL, ARTERIAL STAT 05/12/2023 2:58 PM EDT APTT STAT 05/12/2023 2:57 PM EDT PROTHROMBIN TIME(PT) / INR STAT 05/12/2023 2:57 PM EDT CBC W/O DIFFERENTIAL STAT 05/12/2023 2:57 PM EDT HEMOGLOBIN Timed 05/12/2023 2:57 PM EDT HEMATOCRIT, BLOOD Timed 05/12/2023 2:5 7 PM EDT POTASSIUM, PLASMA Timed 05/12/2023 2:5 7 PM EDT PHOSPHORUS, PLASMA STAT 05/12/2023 2: 57 PM EDT MAGNESIUM, PLASMA STAT 05/12/2023 2:5 7 PM EDT BASIC METABOLIC PANEL, PLASMA STAT 05/12/2023 2:57 PM EDT VENTILATOR - ADULT Routine 05/12/2023 2: 55 PM EDT PEP THERAPY Routine 05/12/2023 2:48 PM EDT PEP THERAPY Routine 05/12/2023 2:48 PM EDT PEP THERAPY Routine 05/12/2023 2:48 PM EDT PEP THERAPY Routine 05/12/2023 2:48 PM EDT PEP THERAPY Routine 05/12/2023 2:48 PM EDT ECG ADULT STAT 05/12/2023 2:42 PM EDT POCT ARTERIAL BLOOD GAS GEM UNSOLICITED RESULTS Routine 05/12/2023 1:18 PM EDT POCT ACT UNSOLICITED RESULTS Routine 05/12/2023 1:15 PM EDT POCT ARTERIAL BLOOD GAS GEM UNSOLICITED RESULTS Routine 05/12/2023 12:33 PM EDT POCT ACT UNSOLICITED RESULTS Routine 05/12/2023 12:30 PM EDT POCT ARTERIAL BLOOD GAS GEM UNSOLICITED RESULTS Routine 05/12/2023 12:06 PM EDT POCT ACT UNSOLICITED RESULTS Routine 05/12/2023 12:01 PM EDT POCT ARTERIAL BLOOD GAS GEM UNSOLICITED RESULTS Routine 05/12/2023 11:33 AM EDT POCT ACT UNSOLICITED RESULTS Routine 05/12/2023 11:31 AM EDT POCT ARTERIAL BLOOD GAS GEM UNSOLICITED RESULTS Routine 05/12/2023 11:07 AM EDT POCT ACT UNSOLICITED RESULTS Routine 05/12/2023 11:04 AM EDT POCT ARTERIAL BLOOD GAS GEM UNSOLICITED RESULTS Routine 05/12/2023 10:35 AM EDT POCT ACT UNSOLICITED RESULTS Routine 05/12/2023 10:32 AM EDT POCT ARTERIAL BLOOD GAS GEM UNSOLICITED RESULTS Routine 05/12/2023 10:15 AM EDT PREPARE RBC STAT 05/12/2023 9:35 AM EDT CBC W/O DIFFERENTIAL STAT 05/12/2023 9:03 AM EDT POCT ARTERIAL BLOOD GAS GEM UNSOLICITED RESULTS Routine 05/12/2023 8:55 AM EDT POCT ACT UNSOLICITED RESULTS Routine 05/12/2023 7:57 AM EDT [place] CABG, ARTERIAL, SINGLE 05/12/2023 6:51 AM EDT CAD (coronary artery disease) ECG ADULT Routine 05/12/2023 6:34 AM EDT TYPE AND SCREEN Routine 05/12/2023 6:25 AM EDT BASIC METABOLIC PANEL, PLASMA Routine 05/12/2023 6:25 AM EDT documented in this encounter Results * XR Chest 2 Views (05/16/2023 6:30 AM EDT) Anatomical Region Laterality Modality Chest Computed Radiogr aphy Impressions 05/16/2023 11:54 AM EDT Increased opacities within the left lung base may represent atelectasis with small bilateral pleural effusions. CRITICAL RESULT: ?? No. COMMUNICATION: Per this written report. Preliminary report signed by Walter Martins DO on 05/16/2023 10:57 AM By electronically signing this report, I, the attending physician, attest that I have personally reviewed the images/data for the above examination(s) and agree with the final edited report. Drafted by Walter Martins DO on 05/16/2023 10:54 AM Final report signed by Larry Henriquez MD on 05/16/2023 11:54 AM Narrative 05/16/2023 11:54 AM EDT CLINICAL INDICATION: evaluate lung vergara TECHNIQUE: XR CHEST 2 VIEWS COMPARISON: May 15, 2023. FINDINGS: Median sternotomy wires. Stable enlarged cardiac silhouette. Improving vascular congestion. Similar consolidation within the left lung apex. Increased opacities within the left lung base. Small bilateral pleural effusions. No pneumothorax. Procedure Note Larry Henriquez MD - 05/16/2023 CLINICAL INDICATION: evaluate lung vergara TECHNIQUE: XR CHEST 2 VIEWS COMPARISON: May 15, 2023. FINDINGS: Median sternotomy wires. Stable enlarged cardiac silhouette. Improvingvascular congestion. Similar consolidation within the left lung apex.Increased opacities within the left lung base. Small bilateral pleuraleffusions. No pneumothorax. IMPRESSION: Increased opacities within the left lung base may represent atelectasiswith small bilateral pleural effusions. CRITICAL RESULT: No. COMMUNICATION: Per this written report. Preliminary report signed by Walter Martins DO on 05/16/2023 10:57 AM By electronically signing this report, I, the attending physician, attestthat I have personally reviewed the images/data for the aboveexamination(s) and agree with the final edited report. Drafted by Walter Martins DO on 05/16/2023 10:54 AM Final report signed by Larry Henriquez MD on 05/16/2023 11:54 AM us Rose Fields APRN IMG XR PROCEDURES Final Result * (ABNORMAL) Magnesium (05/16/2023 2:41 AM EDT) Magnesium, Plasma 2.5(H) 1.9 - 2.4 mg/dL 05/16/2023 3:16 AM EDT [facility] Blood Venous blood specimen / Unknown Venipuncture / Unknown 05/16/2023 2:41 AM EDT 05/16/2023 2:48 AM EDT us Rose Fields APRN LAB BLOOD ORDERABLES Final Res ult [facility] [address] [place] [id number] * (ABNORMAL) Comprehensive metabolic panel (05/16/2023 2:41 AM EDT) Glucose, Plasma 110(H) 74 - 99 mg/dL 05/16/2023 3:16 AM EDT [facility] BUN, Plasma 16 8 - 23 mg/dL 05/16/2023 3:16 AM EDT [facility] Creatinine, Plasma 0.93 0.80 - 1.30 mg/dL 05/16/2023 3:16 AM EDT [facility] BUN/Creatinine Ratio 17 05/16/2023 3:16 AM EDT [facility] Sodium, Plasma 136 136 - 145 mmol/L 05/16/2023 3:16 AM EDT [facility] Potassium, Plasma 3.9 3.7 - 4.8 mmol/L 05/16/2023 3:16 AM EDT [facility] Chloride, Plasma 103 97 - 107 mmol/L 05/16/2023 3:16 AM EDT [facility] CO2, Plasma 25 22 - 29 mmol/L 05/16/2023 3:16 AM EDT [facility] Anion Gap 8 6 - 16 mmol/L 05/16/2023 3:16 AM EDT [facility] Total Calcium, Plasma 7.8(L) 8.9 - 10.2 mg/dL 05/16/2023 3:16 AM EDT [facility] Total Protein 6.0(L) 6.3 - 7.9 g/dL 05/16/2023 3:16 AM EDT [facility] Albumin, Plasma 3.0(L) 3.5 - 5.2 g/dL 05/16/2023 3:16 AM EDT [facility] AST, Plasma 26 10 - 50 U/L 05/16/2023 3:16 AM EDT [facility] ALT, Plasma 14 10 - 50 U/L 05/16/2023 3:16 AM EDT [facility] Alkaline Phosphatase, Plasma 99 40 - 115 U/L 05/16/2023 3:16 AM EDT [facility] Total Bilirubin, Plasma 0.5 0.2 - 1.1 mg/dL 05/16/2023 3:16 AM EDT [facility] eGFRcr 85.6 mL/min/1.7 3m*2 05/16/2023 3:16 AM EDT [facility] Comment:Reported eGFRcr in m L/min/1.73m2 is based the CKD-EPI 2020 equation that does not use a race coefficient. Blood Venous blood specimen / Unknown Venipuncture / Unknown 05/16/2023 2:41 AM EDT 05/16/2023 2:48 AM EDT us Rose Fields APRN LAB BLOOD ORDERABLES Final Res ult [facility] [address] [place] [address] * (ABNORMAL) Hemogram (CBC) (05/16/2023 2:41 AM EDT) WBC Count 9.58 3.70 - 10.30 10*3/uL LAB HEMATOLOGY METHOD 05/16/2023 2:56 AM EDT [facility] RBC Count 3.45(L) 4.60 - 6.10 10*6/uL LAB HEMATOLOGY METHOD 05/16/2023 2:56 AM EDT [facility] HGB 9.2(L) 13.7 - 17.5 g/dL LAB HEMATOLOGY METHOD 05/16/2023 2:56 AM EDT [facility] HCT 30.4(L) 40.0 - 51.0 % LAB HEMATOLOGY METHOD 05/16/2023 2:56 AM EDT [facility] Platelet Count 145(L) 155 - 369 10*3/uL LAB HEMATOLOGY METHOD 05/16/2023 2:56 AM EDT [facility] MCV 88 79 - 98 fL LAB HEMATOLOGY METHOD 05/16/2023 2:56 AM EDT [facility] MCH 26.7 26.0 - 32.0 pg LAB HEMATOLOGY METHOD 05/16/2023 2:56 AM EDT [facility] MCHC 30.3(L) 30.7 - 35.5 g/dL LAB HEMATOLOGY METHOD 05/16/2023 2:56 AM EDT [facility] RDW 14.4 11.5 - 14.5 % LAB HEMATOLOGY METHOD 05/16/2023 2:56 AM EDT [facility] MPV 10.9 8.8 - 12.5 fL LAB HEMATOLOGY METHOD 05/16/2023 2:56 AM EDT [facility] nRBC 0.0 <=0.0 per 100 WBCs LAB HEMATOLOGY METHOD 05/16/2023 2:56 AM EDT [facility] Blood Venous blood specimen / Unknown Venipuncture / Unknown 05/16/2023 2:41 AM EDT 05/16/2023 2:48 AM EDT us Rose Fields [employer] LAB BLOOD ORDERABLES Final Res ult [facility] [address] [place] [id number] * Magnesium, Plasma (05/15/2023 1:45 AM EDT) Magnesium, Plasma 2.3 1.9 - 2.4 mg/dL 05/15/2023 2:18 AM EDT [facility] Blood Venous blood specimen / Unknown Venipuncture / Unknown 05/15/2023 1:45 AM EDT 05/15/2023 1:49 AM EDT Olya Ghosh [employer], DNP LAB BLOOD ORDERABLE S Final Result [facility] [address] [place] [address] * (ABNORMAL) Basic Metabolic Panel, Plasma (05/15/2023 1:45 AM EDT) Glucose, Plasma 111(H) 74 - 99 mg/dL 05/15/2023 2:18 AM EDT [facility] BUN, Plasma 19 8 - 23 mg/dL 05/15/2023 2:18 AM EDT [facility] Creatinine, Plasma 1.19 0.80 - 1.30 mg/dL 05/15/2023 2:18 AM EDT [facility] BUN/Creatinine Ratio 16 05/15/2023 2:18 AM EDT [facility] Sodium, Plasma 139 136 - 145 mmol/L 05/15/2023 2:18 AM EDT [facility] Potassium, Plasma 4.0 3.7 - 4.8 mmol/L 05/15/2023 2:18 AM EDT [facility] Chloride, Plasma 104 97 - 107 mmol/L 05/15/2023 2:18 AM EDT [facility] CO2, Plasma 29 22 - 29 mmol/L 05/15/2023 2:18 AM EDT [facility] Anion Gap 6 6 - 16 mmol/L 05/15/2023 2:18 AM EDT [facility] Total Calcium, Plasma 7.8(L) 8.9 - 10.2 mg/dL 05/15/2023 2:18 AM EDT [facility] eGFRcr 63.7 mL/min/1.7 3m*2 05/15/2023 2:18 AM EDT [facility] Comment:Reported eGFRcr in m L/min/1.73m2 is based the CKD-EPI 2020 equation that does not use a race coefficient. Blood Venous blood specimen / Unknown Venipuncture / Unknown 05/15/2023 1:45 AM EDT 05/15/2023 1:49 AM EDT Olya Ghosh [employer], DNP LAB BLOOD ORDERABLE S Final Result [facility] [address] [place] [address] * (ABNORMAL) CBC W/O Differential (05/15/2023 1:45 AM EDT) Pathologist [facility] WBC Count 10.91(H) 3.70 - 10.30 10*3/uL LAB HEMATOLOGY METHOD 05/15/2023 1:56 AM EDT [facility] RBC Count 3.37(L) 4.60 - 6.10 10*6/uL LAB HEMATOLOGY METHOD 05/15/2023 1:56 AM EDT [facility] HGB 9.4(L) 13.7 - 17.5 g/dL LAB HEMATOLOGY METHOD 05/15/2023 1:56 AM EDT [facility] HCT 29.8(L) 40.0 - 51.0 % LAB HEMATOLOGY METHOD 05/15/2023 1:56 AM EDT [facility] Platelet Count 125(L) 155 - 369 10*3/uL LAB HEMATOLOGY METHOD 05/15/2023 1:56 AM EDT [facility] MCV 88 79 - 98 fL LAB HEMATOLOGY METHOD 05/15/2023 1:56 AM EDT [facility] MCH 27.9 26.0 - 32.0 pg LAB HEMATOLOGY METHOD 05/15/2023 1:56 AM EDT [facility] MCHC 31.5 30.7 - 35.5 g/dL LAB HEMATOLOGY METHOD 05/15/2023 1:56 AM EDT [facility] RDW 14.6(H) 11.5 - 14.5 % LAB HEMATOLOGY METHOD 05/15/2023 1:56 AM EDT [facility] MPV 10.6 8.8 - 12.5 fL LAB HEMATOLOGY METHOD 05/15/2023 1:56 AM EDT [facility] nRBC 0.0 <=0.0 per 100 WBCs LAB HEMATOLOGY METHOD 05/15/2023 1:56 AM EDT [facility] Blood Venous blood specimen / Unknown Venipuncture / Unknown 05/15/2023 1:45 AM EDT 05/15/2023 1:49 AM EDT us Olya Ghosh APRN, DNP LAB BLOOD ORDERABLE S Final Result [facility] [address] [place] [address] * XR Chest 1 View (05/15/2023 1:40 AM EDT) Anatomical Region Laterality Modality Chest Digital Radiogra phy Impressions 05/15/2023 10:18 AM EDT Improving vascular congestion with trace interstitial opacities. Interval removal of mediastinal drains and external pacer wires. Right IJ central venous catheter. CRITICAL RESULT: ?? No. COMMUNICATION: Per this written report. Drafted by Larry Henriquez MD on 05/15/2023 10:17 AM Final report signed by Larry Henriquez MD on 05/15/2023 10:18 AM Narrative 05/15/2023 10:18 AM EDT CLINICAL INDICATION: eval lung vergara TECHNIQUE: XR CHEST 1 VIEW COMPARISON: 05/14/2023. FINDINGS: Interval removal of right IJ [place] catheter and mediastinal drains. Consolidation within the left lung apex. Right lung is clear. Enlarged heart and mediastinal silhouette. Procedure Note Larry Henriquez MD - 05/15/2023 CLINICAL INDICATION: eval lung vergara TECHNIQUE: XR CHEST 1 VIEW COMPARISON: 05/14/2023. FINDINGS: Interval removal of right IJ [place] catheter and mediastinal drains.Consolidation within the left lung apex. Right lung is clear. Enlargedheart and mediastinal silhouette. IMPRESSION: Improving vascular congestion with trace interstitial opacities. Interval removal of mediastinal drains and external pacer wires. Right IJcentral venous catheter. CRITICAL RESULT: No. COMMUNICATION: Per this written report. Drafted by Larry Henriquez MD on 05/15/2023 10:17 AM Final report signed by Larry Henriquez MD on 05/15/2023 10:18 AM us Olya N Augie [employer], DNP IMG XR PROCEDURES F inal Result * (ABNORMAL) POCT glucose meter (05/14/2023 8:36 PM EDT) [facility] POCT Glucose 120(H) 74 - 99 mg/dL 05/14/2023 8:37 PM EDT [facility] Comment:Accuracy of a glucos e result obtained from a capillary whole blood specimen relies upon adequate, non-compromised capillary blood flow. If the capillary glucose result is not consistent with the patient's clinical signs and symptoms, glucose testing should be repeated with either an arterial or venous sample on the glucometer or sent to the main labortory for testing. Comment 05/14/2023 8:37 PM EDT [facility] Insurance Investigator ID Larry Vann 8:37 PM EDT [facility] Device ID [id number] 05/14/2023 8:37 PM EDT [facility] Specimen Type POC Capillary 05/14/2023 8:37 PM EDT [facility] Blood Capillary blood specimen / Unknown 05/14/2023 8:36 PM EDT 05/14/2023 8:37 PM EDT Pablo Mckeon MD LAB POINT OF CARE TE ST DOCKED DEVICE UNSOLICITED RESULTS Final Result Performing Organization Address City/State/[facility] Co de Phone Number [facility] [address] [place] [address] * (ABNORMAL) POCT glucose meter (05/14/2023 4:43 PM EDT) [facility] POCT Glucose 124(H) 74 - 99 mg/dL 05/14/2023 4:44 PM EDT [facility] Comment:Accuracy of a glucos e result obtained from a capillary whole blood specimen relies upon adequate, non-compromised capillary blood flow. If the capillary glucose result is not consistent with the patient's clinical signs and symptoms, glucose testing should be repeated with either an arterial or venous sample on the glucometer or sent to the main labortory for testing. Comment 05/14/2023 4:44 PM EDT [facility] Insurance Investigator ID Marianela Taylor 05/14/2023 4:44 PM EDT [facility] Device ID [id number] 05/14/2023 4:44 PM EDT [facility] Specimen Type POC Capillary 05/14/2023 4:44 PM EDT [facility] Blood Capillary blood specimen / Unknown 05/14/2023 4:43 PM EDT 05/14/2023 4:44 PM EDT Pablo Mckeon MD LAB POINT OF CARE TE ST DOCKED DEVICE UNSOLICITED RESULTS Final Result Performing Organization Address [facility] de Phone Number [facility] [address] [place] [address] * Potassium level repeated 2 hours after the total replacement is complete (05/14/2023 1:12 PM EDT) [facility] Potassium, Plasma 3.8 3.7 - 4.8 mmol/L 05/14/2023 1:42 PM EDT [facility] Blood Venous blood specimen / Unknown Venipuncture / Unknown 05/14/2023 1:12 PM EDT 05/14/2023 1:16 PM EDT us Pablo Mckeon MD LAB BLOOD ORDERABLES Final R esult Performing Organization Address [facility] de Phone Number [facility] [address] [place] [address] * (ABNORMAL) POCT glucose meter (05/14/2023 12:07 PM EDT) [facility] POCT Glucose 113(H) 74 - 99 mg/dL 05/14/2023 12:09 PM EDT [facility] Comment:Accuracy of a glucos e result obtained from a capillary whole blood specimen relies upon adequate, non-compromised capillary blood flow. If the capillary glucose result is not consistent with the patient's clinical signs and symptoms, glucose testing should be repeated with either an arterial or venous sample on the glucometer or sent to the main labortory for testing. Comment 05/14/2023 12:09 PM EDT [facility] Insurance Investigator ID Marianela Taylor 05/14/2023 12:09 PM EDT [facility] Device ID [id number] 05/14/2023 12:09 PM EDT [facility] Specimen Type POC Capillary 05/14/2023 12:09 PM EDT [facility] Blood Capillary blood specimen / Unknown 05/14/2023 12:07 PM EDT 05/14/2023 12:09 PM EDT Pablo Mckeon MD LAB POINT OF CARE TE ST DOCKED DEVICE UNSOLICITED RESULTS Final Result Performing Organization Address City/[facility]/ZIP Co de Phone Number [facility] [address] [place] [address] * (ABNORMAL) POCT glucose meter (05/14/2023 7:53 AM EDT) POCT Glucose 156(H) 74 - 99 mg/dL 05/14/2023 7:54 AM EDT [facility] Comment:Accuracy of a glucos e result obtained from a capillary whole blood specimen relies upon adequate, non-compromised capillary blood flow. If the capillary glucose result is not consistent with the patient's clinical signs and symptoms, glucose testing should be repeated with either an arterial or venous sample on the glucometer or sent to the main labortory for testing. Comment 05/14/2023 7:54 AM EDT [facility] Insurance Investigator ID Marianela Taylor 05/14/2023 7:54 AM EDT [facility] Device ID [id number] 05/14/2023 7:54 AM EDT [facility] Specimen Type POC Capillary 05/14/2023 7:54 AM EDT [facility] Blood Capillary blood specimen / Unknown 05/14/2023 7:53 AM EDT 05/14/2023 7:54 AM EDT Pablo Mckeon MD LAB POINT OF CARE TE ST DOCKED DEVICE UNSOLICITED RESULTS Final Result [facility] [address] [place] [address] * XR Chest 1 View (05/14/2023 2:43 AM EDT) Anatomical Region Laterality Modality Chest Digital Radiogra phy Impressions 05/14/2023 7:19 AM EDT Decreased left lung basal opacities. CRITICAL RESULT: ?? No. COMMUNICATION: Per this written report. Drafted by Tariq Murillo MD on 05/14/2023 7:14 AM Final report signed by Tariq Murillo MD on 05/14/2023 7:19 AM Narrative 05/14/2023 7:19 AM EDT CLINICAL INDICATION: Post-Op Cardiac Surgery TECHNIQUE: XR CHEST 1 VIEW COMPARISON: 21 hours prior FINDINGS: Interval removal of the right IJ approach [place] catheter, sheath remains in place. Thoracic tubes in similar position. Decreased left lung basal opacities. The right lung is relatively clear. Procedure Note Tariq Murillo MD - 05/14/2023 CLINICAL INDICATION: Post-Op Cardiac Surgery TECHNIQUE: XR CHEST 1 VIEW COMPARISON: 21 hours prior FINDINGS: Interval removal of the right IJ approach [place] catheter, sheathremains in place. Thoracic tubes in similar position. Decreased left lungbasal opacities. The right lung is relatively clear. IMPRESSION: Decreased left lung basal opacities. CRITICAL RESULT: No. COMMUNICATION: Per this written report. Drafted by Tariq Murillo MD on 05/14/2023 7:14 AM Final report signed by Tariq Murillo MD on 05/14/2023 7:19 AM Andrea ROCHA IMG XR PROCEDURES Final Result * (ABNORMAL) Magnesium (05/14/2023 1:07 AM EDT) Magnesium, Plasma 2.5(H) 1.9 - 2.4 mg/dL 05/14/2023 4:23 AM EDT [facility] Blood Venous blood specimen / Unknown Venipuncture / Unknown 05/14/2023 1:07 AM EDT 05/14/2023 1:18 AM EDT Pablo Mckeon MD LAB BLOOD ORDERABLES Final R esult [facility] [address] [place] [address] * Phosphorus (05/14/2023 1:07 AM EDT) Phosphorus, Plasma 2.7 2.5 - 4.5 mg/dL 05/14/2023 4:23 AM EDT [facility] Blood Venous blood specimen / Unknown Venipuncture / Unknown 05/14/2023 1:07 AM EDT 05/14/2023 1:18 AM EDT Pablo Mckeon MD LAB BLOOD ORDERABLES Final R esult [facility] [address] [place] [address] * (ABNORMAL) CBC (05/14/2023 1:07 AM EDT) WBC Count 16.87(H) 3.70 - 10.30 10*3/uL LAB HEMATOLOGY METHOD 05/14/2023 1:26 AM EDT [facility] RBC Count 3.61(L) 4.60 - 6.10 10*6/uL LAB HEMATOLOGY METHOD 05/14/2023 1:26 AM EDT [facility] HGB 10.0(L) 13.7 - 17.5 g/dL LAB HEMATOLOGY METHOD 05/14/2023 1:26 AM EDT [facility] HCT 31.6(L) 40.0 - 51.0 % LAB HEMATOLOGY METHOD 05/14/2023 1:26 AM EDT [facility] Platelet Count 159 155 - 369 10*3/uL LAB HEMATOLOGY METHOD 05/14/2023 1:26 AM EDT [facility] MCV 88 79 - 98 fL LAB HEMATOLOGY METHOD 05/14/2023 1:26 AM EDT [facility] MCH 27.7 26.0 - 32.0 pg LAB HEMATOLOGY METHOD 05/14/2023 1:26 AM EDT [facility] MCHC 31.6 30.7 - 35.5 g/dL LAB HEMATOLOGY METHOD 05/14/2023 1:26 AM EDT [facility] RDW 14.6(H) 11.5 - 14.5 % LAB HEMATOLOGY METHOD 05/14/2023 1:26 AM EDT [facility] MPV 10.7 8.8 - 12.5 fL LAB HEMATOLOGY METHOD 05/14/2023 1:26 AM EDT [facility] nRBC 0.0 <=0.0 per 100 WBCs LAB HEMATOLOGY METHOD 05/14/2023 1:26 AM EDT [facility] Blood Venous blood specimen / Unknown Venipuncture / Unknown 05/14/2023 1:07 AM EDT 05/14/2023 1:18 AM EDT us Pablo Mckeon MD LAB BLOOD ORDERABLES Final R esult [facility] [address] [place] [address] * (ABNORMAL) Blood gas, arterial (05/14/2023 1:07 AM EDT) pH, Arterial 7.46(H) 7.31 - 7.42 LAB HEMATOLOGY METHOD 05/14/2023 1:16 AM EDT [facility] pCO2, Arterial 39 35 - 48 mmHg LAB HEMATOLOGY METHOD 05/14/2023 1:16 AM EDT [facility] pO2, Arterial 63(L) >70 mmHg LAB HEMATOLOGY METHOD 05/14/2023 1:16 AM EDT [facility] SO2, Measured, Arterial 93(L) 94 - 98 % LAB HEMATOLOGY METHOD 05/14/2023 1:16 AM EDT [facility] Base Excess, Arterial 3.2(H) -2.0 - 3.0 mmol/L LAB HEMATOLOGY METHOD 05/14/2023 1:16 AM EDT [facility] Bicarbonate, Calculated, Arterial 27(H) 22 - 26 mmol/L LAB HEMATOLOGY METHOD 05/14/2023 1:16 AM EDT [facility] Hematocrit, Whole Blood 30.8(L) 40.0 - 51.0 % LAB HEMATOLOGY METHOD 05/14/2023 1:16 AM EDT [facility] Sodium, Whole Blood 138 136 - 145 mmol/L LAB HEMATOLOGY METHOD 05/14/2023 1:16 AM EDT [facility] Potassium, Whole Blood 4.2 3.6 - 4.9 mmol/L LAB HEMATOLOGY METHOD 05/14/2023 1:16 AM EDT [facility] Chloride, Whole Blood 103 97 - 107 mmol/L LAB HEMATOLOGY METHOD 05/14/2023 1:16 AM EDT [facility] Glucose, Whole Blood 135(H) 74 - 99 mg/dL LAB HEMATOLOGY METHOD 05/14/2023 1:16 AM EDT [facility] Ionized Calcium, Whole Blood 4.4(L) 4.6 - 5.1 mg/dL LAB HEMATOLOGY METHOD 05/14/2023 1:16 AM EDT [facility] Lactate, Arterial, Whole Blood 1.1 0.5 - 1.6 mmol/L LAB HEMATOLOGY METHOD 05/14/2023 1:16 AM EDT [facility] Blood Arterial blood specimen / Unknown Arterial Puncture / Unknown 05/14/2023 1:07 AM EDT 05/14/2023 1:14 AM EDT us Pablo Mckeon MD LAB BLOOD ORDERABLES Final R esult [facility] [address] [place] [address] * (ABNORMAL) Basic metabolic panel (05/14/2023 1:07 AM EDT) Glucose, Plasma 140(H) 74 - 99 mg/dL 05/14/2023 1:49 AM EDT [facility] BUN, Plasma 23 8 - 23 mg/dL 05/14/2023 1:49 AM EDT [facility] Creatinine, Plasma 1.28 0.80 - 1.30 mg/dL 05/14/2023 1:49 AM EDT [facility] BUN/Creatinine Ratio 18 05/14/2023 1:49 AM EDT [facility] Sodium, Plasma 138 136 - 145 mmol/L 05/14/2023 1:49 AM EDT [facility] Potassium, Plasma 4.3 3.7 - 4.8 mmol/L 05/14/2023 1:49 AM EDT [facility] Chloride, Plasma 104 97 - 107 mmol/L 05/14/2023 1:49 AM EDT [facility] CO2, Plasma 24 22 - 29 mmol/L 05/14/2023 1:49 AM EDT [facility] Anion Gap 10 6 - 16 mmol/L 05/14/2023 1:49 AM EDT [facility] Total Calcium, Plasma 7.9(L) 8.9 - 10.2 mg/dL 05/14/2023 1:49 AM EDT [facility] eGFRcr 58.4 mL/min/1.7 3m*2 05/14/2023 1:49 AM EDT [facility] Comment:Reported eGFRcr in m L/min/1.73m2 is based the CKD-EPI 2020 equation that does not use a race coefficient. Blood Venous blood specimen / Unknown Venipuncture / Unknown 05/14/2023 1:07 AM EDT 05/14/2023 1:18 AM EDT Pablo Mckeon MD LAB BLOOD ORDERABLES Final R esult Performing Organization Address City/[facility]/ZIP Co de Phone Number [facility] [address] [place] [address] * (ABNORMAL) POCT glucose meter (05/13/2023 4:45 PM EDT) POCT Glucose 142(H) 74 - 99 mg/dL 05/13/2023 4:46 PM EDT [facility] Comment:Accuracy of a glucos e result obtained from a capillary whole blood specimen relies upon adequate, non-compromised capillary blood flow. If the capillary glucose result is not consistent with the patient's clinical signs and symptoms, glucose testing should be repeated with either an arterial or venous sample on the glucometer or sent to the main labortory for testing. Comment 05/13/2023 4:46 PM EDT [facility] Insurance Investigator ID Mere Han 05/13/2023 4:46 PM EDT [facility] Device ID [id number] 05/13/2023 4:46 PM EDT [facility] Specimen Type POC Arterial 05/13/2023 4:46 PM EDT [facility] Blood Arterial blood specimen / Unknown 05/13/2023 4:45 PM EDT 05/13/2023 4:46 PM EDT us Pablo Mckeon MD LAB POINT OF CARE TE ST DOCKED DEVICE UNSOLICITED RESULTS Final Result Performing Organization Address City/[facility] Co de Phone Number [facility] [address] [place] [address] * (ABNORMAL) POCT glucose meter (05/13/2023 12:02 PM EDT) POCT Glucose 149(H) 74 - 99 mg/dL 05/13/2023 12:03 PM EDT [facility] Comment:Accuracy of a glucos e result obtained from a capillary whole blood specimen relies upon adequate, non-compromised capillary blood flow. If the capillary glucose result is not consistent with the patient's clinical signs and symptoms, glucose testing should be repeated with either an arterial or venous sample on the glucometer or sent to the main labortory for testing. Comment 05/13/2023 12:03 PM EDT [facility] Insurance Investigator ID Mere Han 05/13/2023 12:03 PM EDT [facility] Device ID [id number] 05/13/2023 12:03 PM EDT [facility] Specimen Type POC Arterial 05/13/2023 12:03 PM EDT [facility] Blood Arterial blood specimen / Unknown 05/13/2023 12:02 PM EDT 05/13/2023 12:03 PM EDT us Pablo Mckeon MD LAB POINT OF CARE TE ST DOCKED DEVICE UNSOLICITED RESULTS Final Result Performing Organization Address City/State/[facility] de Phone Number [facility] [address] [place] [address] * (ABNORMAL) CBC W/O Differential (05/13/2023 9:13 AM EDT) WBC Count 19.75(H) 3.70 - 10.30 10*3/uL LAB HEMATOLOGY METHOD 05/13/2023 9:36 AM EDT [facility] RBC Count 4.12(L) 4.60 - 6.10 10*6/uL LAB HEMATOLOGY METHOD 05/13/2023 9:36 AM EDT [facility] HGB 11.2(L) 13.7 - 17.5 g/dL LAB HEMATOLOGY METHOD 05/13/2023 9:36 AM EDT [facility] HCT 36.4(L) 40.0 - 51.0 % LAB HEMATOLOGY METHOD 05/13/2023 9:36 AM EDT [facility] Platelet Count 192 155 - 369 10*3/uL LAB HEMATOLOGY METHOD 05/13/2023 9:36 AM EDT [facility] MCV 88 79 - 98 fL LAB HEMATOLOGY METHOD 05/13/2023 9:36 AM EDT [facility] MCH 27.2 26.0 - 32.0 pg LAB HEMATOLOGY METHOD 05/13/2023 9:36 AM EDT [facility] MCHC 30.8 30.7 - 35.5 g/dL LAB HEMATOLOGY METHOD 05/13/2023 9:36 AM EDT [facility] RDW 14.3 11.5 - 14.5 % LAB HEMATOLOGY METHOD 05/13/2023 9:36 AM EDT [facility] MPV 10.6 8.8 - 12.5 fL LAB HEMATOLOGY METHOD 05/13/2023 9:36 AM EDT [facility] nRBC 0.0 <=0.0 per 100 WBCs LAB HEMATOLOGY METHOD 05/13/2023 9:36 AM EDT [facility] Blood Venous blood specimen / Unknown Venipuncture / Unknown 05/13/2023 9:13 AM EDT 05/13/2023 9:25 AM EDT Pablo Mckeon MD LAB BLOOD ORDERABLES Final R esult Performing Organization Address City/[facility] Co de Phone Number [facility] [address] [place] [address] * (ABNORMAL) Magnesium (05/13/2023 9:13 AM EDT) Magnesium, Plasma 2.7(H) 1.9 - 2.4 mg/dL 05/13/2023 9:52 AM EDT [facility] Blood Venous blood specimen / Unknown Venipuncture / Unknown 05/13/2023 9:13 AM EDT 05/13/2023 9:25 AM EDT Pablo Mckeon MD LAB BLOOD ORDERABLES Final R esult Performing Organization Address City/[facility] Co de Phone Number [facility] [address] [place] [address] * (ABNORMAL) Renal function panel (05/13/2023 9:13 AM EDT) Glucose, Plasma 163(H) 74 - 99 mg/dL 05/13/2023 9:52 AM EDT [facility] BUN, Plasma 18 8 - 23 mg/dL 05/13/2023 9:52 AM EDT [facility] Creatinine, Plasma 1.28 0.80 - 1.30 mg/dL 05/13/2023 9:52 AM EDT [facility] BUN/Creatinine Ratio 14 05/13/2023 9:52 AM EDT [facility] Sodium, Plasma 141 136 - 145 mmol/L 05/13/2023 9:52 AM EDT [facility] Potassium, Plasma 4.9(H) 3.7 - 4.8 mmol/L 05/13/2023 9:52 AM EDT [facility] Chloride, Plasma 107 97 - 107 mmol/L 05/13/2023 9:52 AM EDT [facility] CO2, Plasma 20(L) 22 - 29 mmol/L 05/13/2023 9:52 AM EDT [facility] Anion Gap 14 6 - 16 mmol/L 05/13/2023 9:52 AM EDT [facility] Total Calcium, Plasma 8.3(L) 8.9 - 10.2 mg/dL 05/13/2023 9:52 AM EDT [facility] Phosphorus, Plasma 3.4 2.5 - 4.5 mg/dL 05/13/2023 9:52 AM EDT [facility] Albumin, Plasma 3.6 3.5 - 5.2 g/dL 05/13/2023 9:52 AM EDT [facility] eGFRcr 58.4 mL/min/1.7 3m*2 05/13/2023 9:52 AM EDT [facility] Comment:Reported eGFRcr in m L/min/1.73m2 is based the CKD-EPI 2020 equation that does not use a race coefficient. Blood Venous blood specimen / Unknown Venipuncture / Unknown 05/13/2023 9:13 AM EDT 05/13/2023 9:25 AM EDT us Pablo Mckeon MD LAB BLOOD ORDERABLES Final R esult [facility] [address] [place] [address] * (ABNORMAL) POCT glucose meter (05/13/2023 9:05 AM EDT) POCT Glucose 162(H) 74 - 99 mg/dL 05/13/2023 9:06 AM EDT [facility] Comment:Accuracy of a glucos e result obtained from a capillary whole blood specimen relies upon adequate, non-compromised capillary blood flow. If the capillary glucose result is not consistent with the patient's clinical signs and symptoms, glucose testing should be repeated with either an arterial or venous sample on the glucometer or sent to the main labortory for testing. Comment 05/13/2023 9:06 AM EDT [facility] Insurance Investigator ID Mere Han 05/13/2023 9:06 AM EDT [facility] Device ID [id number] 05/13/2023 9:06 AM EDT [facility] Specimen Type POC Arterial 05/13/2023 9:06 AM EDT [facility] Blood Arterial blood specimen / Unknown 05/13/2023 9:05 AM EDT 05/13/2023 9:06 AM EDT Pablo Mckeon MD LAB POINT OF CARE TE ST DOCKED DEVICE UNSOLICITED RESULTS Final Result Performing Organization Address City/State/[facility] Co de Phone Number [facility] [address] [place] [address] * (ABNORMAL) POCT glucose meter (05/13/2023 8:33 AM EDT) [facility] POCT Glucose 69(L) 74 - 99 mg/dL 05/13/2023 8:34 AM EDT [facility] Comment:Accuracy of a glucos e result obtained from a capillary whole blood specimen relies upon adequate, non-compromised capillary blood flow. If the capillary glucose result is not consistent with the patient's clinical signs and symptoms, glucose testing should be repeated with either an arterial or venous sample on the glucometer or sent to the main labortory for testing. Comment 05/13/2023 8:34 AM EDT [facility] Insurance Investigator ID Mere Han 05/13/2023 8:34 AM EDT [facility] Device ID [id number] 05/13/2023 8:34 AM EDT [facility] Specimen Type POC Capillary 05/13/2023 8:34 AM EDT [facility] Blood Capillary blood specimen / Unknown 05/13/2023 8:33 AM EDT 05/13/2023 8:34 AM EDT Pablo Mckeon MD LAB POINT OF CARE TE ST DOCKED DEVICE UNSOLICITED RESULTS Final Result [facility] [address] [place] [address] * (ABNORMAL) POCT glucose meter (05/13/2023 8:32 AM EDT) Pathologist [facility] POCT Glucose 67(L) 74 - 99 mg/dL 05/13/2023 8:33 AM EDT [facility] Comment:Accuracy of a glucos e result obtained from a capillary whole blood specimen relies upon adequate, non-compromised capillary blood flow. If the capillary glucose result is not consistent with the patient's clinical signs and symptoms, glucose testing should be repeated with either an arterial or venous sample on the glucometer or sent to the main labortory for testing. Comment 05/13/2023 8:33 AM EDT [facility] Insurance Investigator ID Guille Mere 05/13/2023 8:33 AM EDT [facility] LAB Device ID [id number] 05/13/2023 8:33 AM EDT [facility] Specimen Type POC Capillary 05/13/2023 8:33 AM EDT [facility] Blood Capillary blood specimen / Unknown 05/13/2023 8:32 AM EDT 05/13/2023 8:33 AM EDT Pablo Mckeon MD LAB POINT OF CARE TE ST DOCKED DEVICE UNSOLICITED RESULTS Final Result [facility] [address] [place] [address] * (ABNORMAL) POCT glucose meter (05/13/2023 6:36 AM EDT) [facility] POCT Glucose 183(H) 74 - 99 mg/dL 05/13/2023 6:38 AM EDT [facility] Comment:Accuracy of a glucos e result obtained from a capillary whole blood specimen relies upon adequate, non-compromised capillary blood flow. If the capillary glucose result is not consistent with the patient's clinical signs and symptoms, glucose testing should be repeated with either an arterial or venous sample on the glucometer or sent to the main labortory for testing. Comment 05/13/2023 6:38 AM EDT [facility] Insurance Investigator ID Abigail Kaplan 05/13/2023 6:38 AM EDT [facility] Device ID [id number] 05/13/2023 6:38 AM EDT [facility] Specimen Type POC Arterial 05/13/2023 6:38 AM EDT [facility] Blood Arterial blood specimen / Unknown 05/13/2023 6:36 AM EDT 05/13/2023 6:38 AM EDT us Pablo Mckeon MD LAB POINT OF CARE TE ST DOCKED DEVICE UNSOLICITED RESULTS Final Result [facility] [address] [place] [id number] * XR Chest 1 View (05/13/2023 5:44 AM EDT) Anatomical Region Laterality Modality Chest Digital Radiogra phy Impressions 05/13/2023 7:37 AM EDT Stable appearances CRITICAL RESULT: ?? No. COMMUNICATION: Per this written report. Drafted by Adi Mendoza MD on 05/13/2023 7:35 AM Final report signed by Adi Mendoza MD on 05/13/2023 7:37 AM Narrative 05/13/2023 7:37 AM EDT CLINICAL INDICATION: Post-Op Cardiac Surgery TECHNIQUE: Single AP view of chest. COMPARISON: Radiograph from one day prior FINDINGS: Interval removal of endotracheal tube. Other support tubes and lines appear unchanged. Left hemithorax opacities with decreased lung aeration is similar to prior. The right lung is relatively clear. Procedure Note Adi Mendoza MD - 05/13/2023 CLINICAL INDICATION: Post-Op Cardiac Surgery TECHNIQUE: Single AP view of chest. COMPARISON: Radiograph from one day prior FINDINGS: Interval removal of endotracheal tube. Other support tubes and linesappear unchanged. Left hemithorax opacities with decreased lung aerationis similar to prior. The right lung is relatively clear. IMPRESSION: Stable appearances CRITICAL RESULT: No. COMMUNICATION: Per this written report. Drafted by Adi Mendoza MD on 05/13/2023 7:35 AM Final report signed by Adi Mendoza MD on 05/13/2023 7:37 AM Andrea ROCHA IMG XR PROCEDURES Final Result * ECG Adult - POD 1 (05/13/2023 4:13 AM EDT) Pathologist [facility] EKG DIAGNOSIS CLASS Borderline Abnormal MUSE ECG Ventricular Rate 88 BPM MUSE ECG Atrial Rate 88 BPM MUSE ECG OK Interval 150 ms MUSE ECG QRSD Interval 84 ms MUSE ECG QT Interval 364 ms MUSE ECG QTC Interval 440 ms MUSE ECG P [place] 3 degrees MUSE ECG R [place] -2 degrees MUSE ECG T Wave [place] 67 degrees MUSE ECG Diagnosis Sinus rhythm MUSE ECG Diagnosis with frequent MUSE ECG Diagnosis premature ventricular complexes MUSE ECG Diagnosis Otherwise normal ECG MUSE ECG Diagnosis Confirmed by Marco De Guzman ([id number]) on 05/13/2023 11:49:32 AM MUSE ECG 05/13/2023 4:13 AM EDT 05/13/2023 11:49 AM EDT Andrea ROCHA ECG ORDERABLES Final Result MUSE ECG * (ABNORMAL) POCT glucose meter (05/13/2023 2:01 AM EDT) [facility] POCT Glucose 138(H) 74 - 99 mg/dL 05/13/2023 2:02 AM EDT [facility] Comment:Accuracy of a glucos e result obtained from a capillary whole blood specimen relies upon adequate, non-compromised capillary blood flow. If the capillary glucose result is not consistent with the patient's clinical signs and symptoms, glucose testing should be repeated with either an arterial or venous sample on the glucometer or sent to the main labortory for testing. Comment 05/13/2023 2:02 AM EDT [facility] Insurance Investigator ID Abigail Kaplan 05/13/2023 2:02 AM EDT [facility] Device ID [id number] 05/13/2023 2:02 AM EDT [facility] Specimen Type POC Arterial 05/13/2023 2:02 AM EDT [facility] Blood Arterial blood specimen / Unknown 05/13/2023 2:01 AM EDT 05/13/2023 2:02 AM EDT Pablo Mckeon MD LAB POINT OF CARE TE ST DOCKED DEVICE UNSOLICITED RESULTS Final Result Performing Organization Address City/[facility] Co de Phone Number [facility] [address] [place] [address] * (ABNORMAL) Magnesium (05/13/2023 12:17 AM EDT) Magnesium, Plasma 2.8(H) 1.9 - 2.4 mg/dL 05/13/2023 1:50 AM EDT [facility] Blood Venous blood specimen / Unknown Venipuncture / Unknown 05/13/2023 12:17 AM EDT 05/13/2023 12:25 AM EDT Pablo Mckeon MD LAB BLOOD ORDERABLES Final R esult Performing Organization Address [facility] Co de Phone Number [facility] [address] [place] [address] * Phosphorus (05/13/2023 12:17 AM EDT) Phosphorus, Plasma 3.6 2.5 - 4.5 mg/dL 05/13/2023 1:50 AM EDT [facility] Blood Venous blood specimen / Unknown Venipuncture / Unknown 05/13/2023 12:17 AM EDT 05/13/2023 12:25 AM EDT Pablo Mckeon MD LAB BLOOD ORDERABLES Final R esult Performing Organization Address City/[facility] Co de Phone Number [facility] [address] [place] [address] * (ABNORMAL) Blood gas panel, arterial (05/13/2023 12:17 AM EDT) pH, Arterial 7.32 7.31 - 7.42 LAB HEMATOLOGY METHOD 05/13/2023 12:37 AM EDT [facility] pCO2, Arterial 44 35 - 48 mmHg LAB HEMATOLOGY METHOD 05/13/2023 12:37 AM EDT [facility] pO2, Arterial 89 >70 mmHg LAB HEMATOLOGY METHOD 05/13/2023 12:37 AM EDT [facility] SO2, Measured, Arterial 98 94 - 98 % LAB HEMATOLOGY METHOD 05/13/2023 12:37 AM EDT [facility] Base Excess, Arterial -3.5(L) -2.0 - 3.0 mmol/L LAB HEMATOLOGY METHOD 05/13/2023 12:37 AM EDT [facility] Bicarbonate, Calculated, Arterial 23 22 - 26 mmol/L LAB HEMATOLOGY METHOD 05/13/2023 12:37 AM EDT [facility] Hematocrit, Whole Blood 34.5(L) 40.0 - 51.0 % LAB HEMATOLOGY METHOD 05/13/2023 12:37 AM EDT [facility] Sodium, Whole Blood 142 136 - 145 mmol/L LAB HEMATOLOGY METHOD 05/13/2023 12:37 AM EDT [facility] Potassium, Whole Blood 5.0(H) 3.6 - 4.9 mmol/L LAB HEMATOLOGY METHOD 05/13/2023 12:37 AM EDT [facility] Chloride, Whole Blood 111(H) 97 - 107 mmol/L LAB HEMATOLOGY METHOD 05/13/2023 12:37 AM EDT [facility] Glucose, Whole Blood 160(H) 74 - 99 mg/dL LAB HEMATOLOGY METHOD 05/13/2023 12:37 AM EDT [facility] Ionized Calcium, Whole Blood 4.5(L) 4.6 - 5.1 mg/dL LAB HEMATOLOGY METHOD 05/13/2023 12:37 AM EDT [facility] Lactate, Arterial, Whole Blood 2.3(H) 0.5 - 1.6 mmol/L LAB HEMATOLOGY METHOD 05/13/2023 12:37 AM EDT [facility] Blood Arterial blood specimen / Unknown Arterial Puncture / Unknown 05/13/2023 12:17 AM EDT 05/13/2023 12:28 AM EDT us Pablo Mckeon MD LAB BLOOD ORDERABLES Final R esult [facility] [address] [place] [address] * (ABNORMAL) Potassium, Plasma (05/13/2023 12:17 AM EDT) Potassium, Plasma 5.3(H) 3.7 - 4.8 mmol/L 05/13/2023 12:47 AM EDT [facility] Blood Venous blood specimen / Unknown Venipuncture / Unknown 05/13/2023 12:17 AM EDT 05/13/2023 12:25 AM EDT Andrea ROCHA LAB BLOOD ORDERABLES Final Resu lt Performing Organization Address [facility] de Phone Number [facility] [address] [place] [address] * (ABNORMAL) Hematocrit (05/13/2023 12:17 AM EDT) HCT 35.4(L) 40.0 - 51.0 % LAB HEMATOLOGY METHOD 05/13/2023 12:39 AM EDT [facility] Blood Venous blood specimen / Unknown Venipuncture / Unknown 05/13/2023 12:17 AM EDT 05/13/2023 12:25 AM EDT Andrea ROCHA LAB BLOOD ORDERABLES Final Resu lt Performing Organization Address [facility] de Phone Number [facility] [address] [place] [address] * (ABNORMAL) Hemoglobin (05/13/2023 12:17 AM EDT) HGB 11.2(L) 13.7 - 17.5 g/dL LAB HEMATOLOGY METHOD 05/13/2023 12:39 AM EDT [facility] Blood Venous blood specimen / Unknown Venipuncture / Unknown 05/13/2023 12:17 AM EDT 05/13/2023 12:25 AM EDT Andrea ROCHA LAB BLOOD ORDERABLES Final Resu lt Performing Organization Address [facility] de Phone Number [facility] [address] [place] [address] * OK CRITICAL CARE, ADDL 30 MIN, [place] CRITICAL CARE, ADDL 30 MIN (05/12/2023 11:50 PM EDT) Narrative Santo Amin MD - 05/12/2023 11:50 PM EDT Santo Amin MD ? 05/12/2023 11:50 PM Critical Care Performed by: Santo Amin MD Authorized by: Santo Amin MD ?? Critical care provider statement: ??Critical care time (minutes): ??67 ??Critical care time was exclusive of: ??Separately billable procedures and treating other patients and teaching time ??Critical care was time spent personally by me on the following activities: ??Development of treatment plan with patient or surrogate, ordering and performing treatments and interventions, ordering and review of laboratory studies, ordering and review of radiographic studies, evaluation of patient's response to treatment, examination of patient and ventilator management ??I assumed subsequent critical care for this patient from a provider in my division, on the same day: yes ?? Comments: ?? Doing well. Extubated this evening while on rounds. Nasal cannula us Santo Amin MD IN CLINIC/BEDSIDE ORDERABL ES Final Result * (ABNORMAL) Blood gas, arterial (05/12/2023 10:29 PM EDT) pH, Arterial 7.30(L) 7.31 - 7.42 LAB HEMATOLOGY METHOD 05/12/2023 10:42 PM EDT [facility] pCO2, Arterial 45 35 - 48 mmHg LAB HEMATOLOGY METHOD 05/12/2023 10:42 PM EDT [facility] pO2, Arterial 90 >70 mmHg LAB HEMATOLOGY METHOD 05/12/2023 10:42 PM EDT [facility] SO2, Measured, Arterial 97 94 - 98 % LAB HEMATOLOGY METHOD 05/12/2023 10:42 PM EDT [facility] Base Excess, Arterial -4.2(L) -2.0 - 3.0 mmol/L LAB HEMATOLOGY METHOD 05/12/2023 10:42 PM EDT [facility] Bicarbonate, Calculated, Arterial 22 22 - 26 mmol/L LAB HEMATOLOGY METHOD 05/12/2023 10:42 PM EDT [facility] Hematocrit, Whole Blood 34.5(L) 40.0 - 51.0 % LAB HEMATOLOGY METHOD 05/12/2023 10:42 PM EDT [facility] Sodium, Whole Blood 141 136 - 145 mmol/L LAB HEMATOLOGY METHOD 05/12/2023 10:42 PM EDT [facility] Potassium, Whole Blood 5.0(H) 3.6 - 4.9 mmol/L LAB HEMATOLOGY METHOD 05/12/2023 10:42 PM EDT [facility] Chloride, Whole Blood 111(H) 97 - 107 mmol/L LAB HEMATOLOGY METHOD 05/12/2023 10:42 PM EDT [facility] Glucose, Whole Blood 165(H) 74 - 99 mg/dL LAB HEMATOLOGY METHOD 05/12/2023 10:42 PM EDT [facility] Ionized Calcium, Whole Blood 4.4(L) 4.6 - 5.1 mg/dL LAB HEMATOLOGY METHOD 05/12/2023 10:42 PM EDT [facility] Lactate, Arterial, Whole Blood 2.4(H) 0.5 - 1.6 mmol/L LAB HEMATOLOGY METHOD 05/12/2023 10:42 PM EDT [facility] Blood Arterial blood specimen / Unknown Arterial Puncture / Unknown 05/12/2023 10:29 PM EDT 05/12/2023 10:41 PM EDT us Andrea ROCHA LAB BLOOD ORDERABLES Final Resu lt [facility] [address] [place] [address] * (ABNORMAL) Basic metabolic panel (05/12/2023 8:09 PM EDT) Glucose, Plasma 192(H) 74 - 99 mg/dL 05/12/2023 9:14 PM EDT [facility] BUN, Plasma 13 8 - 23 mg/dL 05/12/2023 9:14 PM EDT [facility] Creatinine, Plasma 0.99 0.80 - 1.30 mg/dL 05/12/2023 9:14 PM EDT [facility] BUN/Creatinine Ratio 13 05/12/2023 9:14 PM EDT [facility] Sodium, Plasma 142 136 - 145 mmol/L 05/12/2023 9:14 PM EDT [facility] Potassium, Plasma 5.5(H) 3.7 - 4.8 mmol/L 05/12/2023 9:14 PM EDT [facility] Chloride, Plasma 111(H) 97 - 107 mmol/L 05/12/2023 9:14 PM EDT [facility] CO2, Plasma 20(L) 22 - 29 mmol/L 05/12/2023 9:14 PM EDT [facility] Anion Gap 11 6 - 16 mmol/L 05/12/2023 9:14 PM EDT [facility] Total Calcium, Plasma 7.6(L) 8.9 - 10.2 mg/dL 05/12/2023 9:14 PM EDT [facility] eGFRcr 79.4 mL/min/1.7 3m*2 05/12/2023 9:14 PM EDT [facility] Comment:Reported eGFRcr in m L/min/1.73m2 is based the CKD-EPI 2020 equation that does not use a race coefficient. Blood Venous blood specimen / Unknown Venipuncture / Unknown 05/12/2023 8:09 PM EDT 05/12/2023 8:23 PM EDT us Andrea ROCHA LAB BLOOD ORDERABLES Final Resu lt Performing Organization Address City/State/[facility] Co de Phone Number [facility] [address] [place], [place] [id number] * (ABNORMAL) CBC (05/12/2023 8:09 PM EDT) WBC Count 15.50(H) 3.70 - 10.30 10*3/uL LAB HEMATOLOGY METHOD 05/12/2023 8:30 PM EDT [facility] RBC Count 4.03(L) 4.60 - 6.10 10*6/uL LAB HEMATOLOGY METHOD 05/12/2023 8:30 PM EDT [facility] HGB 11.2(L) 13.7 - 17.5 g/dL LAB HEMATOLOGY METHOD 05/12/2023 8:30 PM EDT [facility] HCT 35.4(L) 40.0 - 51.0 % LAB HEMATOLOGY METHOD 05/12/2023 8:30 PM EDT [facility] Platelet Count 194 155 - 369 10*3/uL LAB HEMATOLOGY METHOD 05/12/2023 8:30 PM EDT [facility] MCV 88 79 - 98 fL LAB HEMATOLOGY METHOD 05/12/2023 8:30 PM EDT [facility] MCH 27.8 26.0 - 32.0 pg LAB HEMATOLOGY METHOD 05/12/2023 8:30 PM EDT [facility] MCHC 31.6 30.7 - 35.5 g/dL LAB HEMATOLOGY METHOD 05/12/2023 8:30 PM EDT [facility] RDW 13.9 11.5 - 14.5 % LAB HEMATOLOGY METHOD 05/12/2023 8:30 PM EDT [facility] MPV 10.4 8.8 - 12.5 fL LAB HEMATOLOGY METHOD 05/12/2023 8:30 PM EDT [facility] nRBC 0.0 <=0.0 per 100 WBCs LAB HEMATOLOGY METHOD 05/12/2023 8:30 PM EDT [facility] Blood Venous blood specimen / Unknown Venipuncture / Unknown 05/12/2023 8:09 PM EDT 05/12/2023 8:24 PM EDT us Andrea ROCHA LAB BLOOD ORDERABLES Final Resu lt Performing Organization Address [facility] Co de Phone Number [facility] [address] [place] [address] * (ABNORMAL) Potassium, Plasma (05/12/2023 8:09 PM EDT) Potassium, Plasma 5.5(H) 3.7 - 4.8 mmol/L 05/12/2023 9:14 PM EDT [facility] Blood Venous blood specimen / Unknown Venipuncture / Unknown 05/12/2023 8:09 PM EDT 05/12/2023 8:23 PM EDT us Andrea ROCHA LAB BLOOD ORDERABLES Final Resu lt Performing Organization Address City/[facility]/ZIP Co de Phone Number [facility] [address] [place] [address] * (ABNORMAL) Hematocrit (05/12/2023 8:09 PM EDT) HCT 35.4(L) 40.0 - 51.0 % LAB HEMATOLOGY METHOD 05/12/2023 8:30 PM EDT [facility] Blood Venous blood specimen / Unknown Venipuncture / Unknown 05/12/2023 8:09 PM EDT 05/12/2023 8:24 PM EDT us Andrea ROCHA LAB BLOOD ORDERABLES Final Resu lt Performing Organization Address City/[facility]/ZIP Co de Phone Number [facility] [address] [place] [id number] * (ABNORMAL) Hemoglobin (05/12/2023 8:09 PM EDT) Pathologist [facility] HGB 11.2(L) 13.7 - 17.5 g/dL LAB HEMATOLOGY METHOD 05/12/2023 8:30 PM EDT [facility] Blood Venous blood specimen / Unknown Venipuncture / Unknown 05/12/2023 8:09 PM EDT 05/12/2023 8:24 PM EDT us Andrea ROCHA LAB BLOOD ORDERABLES Final Resu lt Performing Organization Address City/[facility]/ZIP Co de Phone Number [facility] [address] [place] [address] * (ABNORMAL) Blood gas, arterial (05/12/2023 8:09 PM EDT) [facility] pH, Arterial 7.33 7.31 - 7.42 LAB HEMATOLOGY METHOD 05/12/2023 8:25 PM EDT [facility] pCO2, Arterial 43 35 - 48 mmHg LAB HEMATOLOGY METHOD 05/12/2023 8:25 PM EDT [facility] pO2, Arterial 145 >70 mmHg LAB HEMATOLOGY METHOD 05/12/2023 8:25 PM EDT [facility] SO2, Measured, Arterial 100(H) 94 - 98 % LAB HEMATOLOGY METHOD 05/12/2023 8:25 PM EDT [facility] Base Excess, Arterial -3.2(L) -2.0 - 3.0 mmol/L LAB HEMATOLOGY METHOD 05/12/2023 8:25 PM EDT [facility] Bicarbonate, Calculated, Arterial 23 22 - 26 mmol/L LAB HEMATOLOGY METHOD 05/12/2023 8:25 PM EDT [facility] Hematocrit, Whole Blood 33.8(L) 40.0 - 51.0 % LAB HEMATOLOGY METHOD 05/12/2023 8:25 PM EDT [facility] Sodium, Whole Blood 141 136 - 145 mmol/L LAB HEMATOLOGY METHOD 05/12/2023 8:25 PM EDT [facility] Potassium, Whole Blood 5.0(H) 3.6 - 4.9 mmol/L LAB HEMATOLOGY METHOD 05/12/2023 8:25 PM EDT [facility] Chloride, Whole Blood 110(H) 97 - 107 mmol/L LAB HEMATOLOGY METHOD 05/12/2023 8:25 PM EDT [facility] Glucose, Whole Blood 183(H) 74 - 99 mg/dL LAB HEMATOLOGY METHOD 05/12/2023 8:25 PM EDT [facility] Ionized Calcium, Whole Blood 4.4(L) 4.6 - 5.1 mg/dL LAB HEMATOLOGY METHOD 05/12/2023 8:25 PM EDT [facility] Lactate, Arterial, Whole Blood 1.7(H) 0.5 - 1.6 mmol/L LAB HEMATOLOGY METHOD 05/12/2023 8:25 PM EDT [facility] Blood Arterial blood specimen / Unknown Arterial Puncture / Unknown 05/12/2023 8:09 PM EDT 05/12/2023 8:24 PM EDT Andrea ROCHA LAB BLOOD ORDERABLES Final Resu lt [facility] [address] [place] [address] * (ABNORMAL) Blood gas panel, arterial (05/12/2023 5:38 PM EDT) pH, Arterial 7.32 7.31 - 7.42 LAB HEMATOLOGY METHOD 05/12/2023 6:23 PM EDT [facility] pCO2, Arterial 42 35 - 48 mmHg LAB HEMATOLOGY METHOD 05/12/2023 6:23 PM EDT [facility] pO2, Arterial 167 >70 mmHg LAB HEMATOLOGY METHOD 05/12/2023 6:23 PM EDT [facility] SO2, Measured, Arterial 100(H) 94 - 98 % LAB HEMATOLOGY METHOD 05/12/2023 6:23 PM EDT [facility] Base Excess, Arterial -4.3(L) -2.0 - 3.0 mmol/L LAB HEMATOLOGY METHOD 05/12/2023 6:23 PM EDT [facility] Bicarbonate, Calculated, Arterial 22 22 - 26 mmol/L LAB HEMATOLOGY METHOD 05/12/2023 6:23 PM EDT [facility] Hematocrit, Whole Blood 34.1(L) 40.0 - 51.0 % LAB HEMATOLOGY METHOD 05/12/2023 6:23 PM EDT [facility] Sodium, Whole Blood 142 136 - 145 mmol/L LAB HEMATOLOGY METHOD 05/12/2023 6:23 PM EDT [facility] Potassium, Whole Blood 4.5 3.6 - 4.9 mmol/L LAB HEMATOLOGY METHOD 05/12/2023 6:23 PM EDT [facility] Chloride, Whole Blood 112(H) 97 - 107 mmol/L LAB HEMATOLOGY METHOD 05/12/2023 6:23 PM EDT [facility] Glucose, Whole Blood 180(H) 74 - 99 mg/dL LAB HEMATOLOGY METHOD 05/12/2023 6:23 PM EDT [facility] Ionized Calcium, Whole Blood 4.3(L) 4.6 - 5.1 mg/dL LAB HEMATOLOGY METHOD 05/12/2023 6:23 PM EDT [facility] Lactate, Arterial, Whole Blood 1.6 0.5 - 1.6 mmol/L LAB HEMATOLOGY METHOD 05/12/2023 6:23 PM EDT [facility] Blood Arterial blood specimen / Unknown Arterial Puncture / Unknown 05/12/2023 5:38 PM EDT 05/12/2023 6:22 PM EDT us Pablo Mckeon MD LAB BLOOD ORDERABLES Final R esult [facility] [address] [place] [address] * (ABNORMAL) Blood gas, arterial (05/12/2023 4:01 PM EDT) pH, Arterial 7.23(LL) 7.31 - 7.42 LAB HEMATOLOGY METHOD 05/12/2023 4:10 PM EDT [facility] pCO2, Arterial 57(H) 35 - 48 mmHg LAB HEMATOLOGY METHOD 05/12/2023 4:10 PM EDT [facility] pO2, Arterial 124 >70 mmHg LAB HEMATOLOGY METHOD 05/12/2023 4:10 PM EDT [facility] SO2, Measured, Arterial 98 94 - 98 % LAB HEMATOLOGY METHOD 05/12/2023 4:10 PM EDT [facility] Base Excess, Arterial -4.4(L) -2.0 - 3.0 mmol/L LAB HEMATOLOGY METHOD 05/12/2023 4:10 PM EDT [facility] Bicarbonate, Calculated, Arterial 24 22 - 26 mmol/L LAB HEMATOLOGY METHOD 05/12/2023 4:10 PM EDT [facility] Hematocrit, Whole Blood 36.0(L) 40.0 - 51.0 % LAB HEMATOLOGY METHOD 05/12/2023 4:10 PM EDT [facility] Sodium, Whole Blood 143 136 - 145 mmol/L LAB HEMATOLOGY METHOD 05/12/2023 4:10 PM EDT [facility] Potassium, Whole Blood 4.2 3.6 - 4.9 mmol/L LAB HEMATOLOGY METHOD 05/12/2023 4:10 PM EDT [facility] Chloride, Whole Blood 111(H) 97 - 107 mmol/L LAB HEMATOLOGY METHOD 05/12/2023 4:10 PM EDT [facility] Glucose, Whole Blood 153(H) 74 - 99 mg/dL LAB HEMATOLOGY METHOD 05/12/2023 4:10 PM EDT [facility] Ionized Calcium, Whole Blood 4.5(L) 4.6 - 5.1 mg/dL LAB HEMATOLOGY METHOD 05/12/2023 4:10 PM EDT [facility] Lactate, Arterial, Whole Blood 1.6 0.5 - 1.6 mmol/L LAB HEMATOLOGY METHOD 05/12/2023 4:10 PM EDT [facility] Blood Arterial blood specimen / Unknown Arterial Puncture / Unknown 05/12/2023 4:01 PM EDT 05/12/2023 4:08 PM EDT us Andrea ROCHA LAB BLOOD ORDERABLES Final Resu lt [facility] [address] [place] [id number] * (ABNORMAL) Blood gas panel with oximetry, mixed venous (05/12/2023 3:59 PM EDT) pH, Mixed Venous 7.20(LL) 7.32 - 7.43 LAB HEMATOLOGY METHOD 05/12/2023 4:12 PM EDT [facility] pCO2, Mixed Venous 61(HH) 40 - 55 mmHg LAB HEMATOLOGY METHOD 05/12/2023 4:12 PM EDT [facility] pO2, Mixed Venous 39 25 - 40 mmHg LAB HEMATOLOGY METHOD 05/12/2023 4:12 PM EDT [facility] SO2, Measured, Mixed Venous 61(L) 65 - 80 % LAB HEMATOLOGY METHOD 05/12/2023 4:12 PM EDT [facility] Bicarbonate, Calculated, Mixed Venous 24 22 - 26 mmol/L LAB HEMATOLOGY METHOD 05/12/2023 4:12 PM EDT [facility] Base Excess, Mixed Venous -4.7(L) -2.0 - 3.0 mmol/L LAB HEMATOLOGY METHOD 05/12/2023 4:12 PM EDT [facility] Hematocrit, Whole Blood 35.2(L) 40.0 - 51.0 % LAB HEMATOLOGY METHOD 05/12/2023 4:12 PM EDT [facility] Sodium, Whole Blood 148(H) 136 - 145 mmol/L LAB HEMATOLOGY METHOD 05/12/2023 4:12 PM EDT [facility] Potassium, Whole Blood 4.2 3.6 - 4.9 mmol/L LAB HEMATOLOGY METHOD 05/12/2023 4:12 PM EDT [facility] Chloride, Whole Blood 107 97 - 107 mmol/L LAB HEMATOLOGY METHOD 05/12/2023 4:12 PM EDT [facility] Ionized Calcium, Whole Blood 4.6 4.6 - 5.1 mg/dL LAB HEMATOLOGY METHOD 05/12/2023 4:12 PM EDT [facility] Glucose, Whole Blood 150(H) 74 - 99 mg/dL LAB HEMATOLOGY METHOD 05/12/2023 4:12 PM EDT [facility] Oxyhemoglobin, Mixed Venous, Whole Blood 60.0 40.0 - 70.0 % LAB HEMATOLOGY METHOD 05/12/2023 4:12 PM EDT [facility] Hemoglobin Reduced, Mixed Venous, Whole Blood 37.7 % LAB HEMATOLOGY METHOD 05/12/2023 4:12 PM EDT [facility] Total Hemoglobin, Mixed Venous, Whole Blood 11.5(L) 13.7 - 17.5 g/dL LAB HEMATOLOGY METHOD 05/12/2023 4:12 PM EDT [facility] Blood Mixed venous blood specimen / Unknown Venipuncture / Unknown 05/12/2023 3:59 PM EDT 05/12/2023 4:08 PM EDT us Nory Michele APRN LAB BLOOD ORDERABLES Evelyn l Result [facility] [address] [place] [address] * [place] CRITICAL CARE, E/M 30-74 MINUTES (05/12/2023 3:38 PM EDT) Narrative Nory Michele APRN - 05/12/2023 3:38 PM EDT Nory Michele APRN ? 05/12/2023 ??4:20 PM Critical Care Performed by: Nory Michele APRN Authorized by: Nory Michele APRN ?? Critical care provider statement: ??Critical care time (minutes): ??40 ??Critical care time was exclusive of: ??Separately billable procedures and treating other patients ??Critical care was time spent personally by me on the following activities: ??Development of treatment plan with patient or surrogate, examination of patient, ordering and review of radiographic studies, ordering and review of laboratory studies and evaluation of patient's response to treatment ??I assumed subsequent critical care for this patient from a provider in my division, on the same day: no ?? Comments: ?? The patient is critically ill with: acute hypoxic respiratory failure, CAD, CABGx 3, HTN, HLD, COPD, anemia. ??They require complex decision making. The patient was seen on rounds with critical care physician, Dr. Jori Peck MD and they are in agreement with the plan of care. Pharmacy, respiratory and nursing services were present on rounds. Nory Michele APRN IN CLINIC/BEDSIDE ORDERAB LES Final Result * XR Chest 1 View (05/12/2023 3:10 PM EDT) Anatomical Region Laterality Modality Chest Digital Radiogra phy Impressions 05/12/2023 4:22 PM EDT Endotracheal tube with tip 5.5 cm above the darling. Left apical opacity may reflect hematoma or pleural effusion. Left upper lobe airspace opacities and atelectasis. CRITICAL RESULT: ?? No. COMMUNICATION: Per this written report. Drafted by Miri Shah MD on 05/12/2023 4:18 PM Final report signed by Miri Shah MD on 05/12/2023 4:22 PM Narrative 05/12/2023 4:22 PM EDT CLINICAL INDICATION: Post-Op Cardiac Surgery TECHNIQUE: XR CHEST 1 VIEW COMPARISON: May 04, 2023 FINDINGS: Endotracheal tube terminates 5.5 cm above the darling. Right internal jugular approach [place] catheter with tip of the main pulmonary artery. Mediastinal drain and bilateral chest tubes in place. Left apical effusion or hematoma and left upper lobe opacities. Interval median sternotomy and CABG. Procedure Note Miri Shah MD - 05/12/2023 CLINICAL INDICATION: Post-Op Cardiac Surgery TECHNIQUE: XR CHEST 1 VIEW COMPARISON: May 04, 2023 FINDINGS: Endotracheal tube terminates 5.5 cm above the darling. Right internaljugular approach [place] catheter with tip of the main pulmonary artery.Mediastinal drain and bilateral chest tubes in place. Left apical effusionor hematoma and left upper lobe opacities. Interval median sternotomy andCABG. IMPRESSION: Endotracheal tube with tip 5.5 cm above the darling. Left apical opacity may reflect hematoma or pleural effusion. Left upperlobe airspace opacities and atelectasis. CRITICAL RESULT: No. COMMUNICATION: Per this written report. Drafted by Miri Shah MD on 05/12/2023 4:18 PM Final report signed by Miir Shah MD on 05/12/2023 4:22 PM Andrea RO[facility] IMG XR PROCEDURES Final Result * Monico auris Surveillance by PCR (05/12/2023 2:58 PM EDT) Monico auris PCR Result Not Detected Not Detected 05/13/2023 2:54 PM EDT [facility] Swab (Axilla and Groin) Non-blood Collection / Unknown 05/12/2023 2:58 PM EDT 05/12/2023 3:29 PM EDT Narrative [facility] - 05/13/2023 2:54 PM EDT This PCR assay was developed and its performance characteristics determined by [facility] as appropriate for clinical purposes. This assay has not been cleared or approved by the FDA, but is performed in a CLIA regulated laboratory that is qualified to perform high-complexity testing. This PCR assay was developed and its performance characteristics determined by [facility] as appropriate for clinical purposes. This assay has not been cleared or approved by the FDA, but is performed in a CLIA regulated laboratory that is qualified to perform high-complexity testing. us [facility] MICROBIOLOGY - GENERAL ORDE KALYAN Final Result Performing Organization Address [facility] Co de Phone Number [facility] [address] [place] [id number] * Multi Drug Resistance Test (05/12/2023 2:58 PM EDT) Pathologist [facility] Culture No growth at day 1 05/13/2023 11:20 AM EDT [facility] Swab (Nares and Jessica Rectal) Non-blood Collection / Unknown 05/12/2023 2:58 PM EDT 05/12/2023 3:29 PM EDT [facility] MICROBIOLOGY - GENERAL ORDE ADELFOVIRAL Final Result Performing Organization Address [facility] Phone Number [facility] [address] [place] [address] * (ABNORMAL) Blood gas, arterial (05/12/2023 2:58 PM EDT) pH, Arterial 7.34 7.31 - 7.42 LAB HEMATOLOGY METHOD 05/12/2023 3:06 PM EDT [facility] pCO2, Arterial 44 35 - 48 mmHg LAB HEMATOLOGY METHOD 05/12/2023 3:06 PM EDT [facility] pO2, Arterial 121 >70 mmHg LAB HEMATOLOGY METHOD 05/12/2023 3:06 PM EDT [facility] SO2, Measured, Arterial 98 94 - 98 % LAB HEMATOLOGY METHOD 05/12/2023 3:06 PM EDT [facility] Base Excess, Arterial -2.2(L) -2.0 - 3.0 mmol/L LAB HEMATOLOGY METHOD 05/12/2023 3:06 PM EDT [facility] Bicarbonate, Calculated, Arterial 24 22 - 26 mmol/L LAB HEMATOLOGY METHOD 05/12/2023 3:06 PM EDT [facility] Hematocrit, Whole Blood 32.3(L) 40.0 - 51.0 % LAB HEMATOLOGY METHOD 05/12/2023 3:06 PM EDT [facility] Sodium, Whole Blood 143 136 - 145 mmol/L LAB HEMATOLOGY METHOD 05/12/2023 3:06 PM EDT [facility] Potassium, Whole Blood 3.5(L) 3.6 - 4.9 mmol/L LAB HEMATOLOGY METHOD 05/12/2023 3:06 PM EDT [facility] Chloride, Whole Blood 111(H) 97 - 107 mmol/L LAB HEMATOLOGY METHOD 05/12/2023 3:06 PM EDT [facility] Glucose, Whole Blood 166(H) 74 - 99 mg/dL LAB HEMATOLOGY METHOD 05/12/2023 3:06 PM EDT [facility] Ionized Calcium, Whole Blood 4.6 4.6 - 5.1 mg/dL LAB HEMATOLOGY METHOD 05/12/2023 3:06 PM EDT [facility] Lactate, Arterial, Whole Blood 1.7(H) 0.5 - 1.6 mmol/L LAB HEMATOLOGY METHOD 05/12/2023 3:06 PM EDT [facility] Blood Arterial blood specimen / Unknown Arterial Puncture / Unknown 05/12/2023 2:58 PM EDT 05/12/2023 3:04 PM EDT Andrea [facility] BLOOD ORDERABLES Final Resu lt Performing Organization Address City/[facility] Co de Phone Number [facility] [address] [place] [address] * Potassium, Plasma (05/12/2023 2:57 PM EDT) Potassium, Plasma 3.7 3.7 - 4.8 mmol/L 05/12/2023 3:45 PM EDT [facility] Blood Venous blood specimen / Unknown Venipuncture / Unknown 05/12/2023 2:57 PM EDT 05/12/2023 3:07 PM EDT Andrea [facility] BLOOD ORDERABLES Final Resu lt Performing Organization Address City/[facility]/ZIP Co de Phone Number [facility] [address] [place] [address] * (ABNORMAL) Hematocrit (05/12/2023 2:57 PM EDT) HCT 34.0(L) 40.0 - 51.0 % LAB HEMATOLOGY METHOD 05/12/2023 3:15 PM EDT [facility] Blood Venous blood specimen / Unknown Venipuncture / Unknown 05/12/2023 2:57 PM EDT 05/12/2023 3:06 PM EDT Andrea [facility] BLOOD ORDERABLES Final Resu lt Performing Organization Address [facility] de Phone Number [facility] [address] [place] [address] * (ABNORMAL) Hemoglobin (05/12/2023 2:57 PM EDT) HGB 10.7(L) 13.7 - 17.5 g/dL LAB HEMATOLOGY METHOD 05/12/2023 3:15 PM EDT [facility] Blood Venous blood specimen / Unknown Venipuncture / Unknown 05/12/2023 2:57 PM EDT 05/12/2023 3:06 PM EDT Andrea RO[facility] LAB BLOOD ORDERABLES Final Resu lt Performing Organization Address [facility] de Phone Number [facility] [address] [place] [address] * APTT (05/12/2023 2:57 PM EDT) aPTT 32 25 - 35 sec LAB COAGULATION METHOD 05/12/2023 4:01 PM EDT [facility] Blood Venous blood specimen / Unknown Venipuncture / Unknown 05/12/2023 2:57 PM EDT 05/12/2023 3:07 PM EDT Andrea [facility] BLOOD ORDERABLES Final Resu lt Performing Organization Address [facility] de Phone Number [facility] [address] [place] [address] * (ABNORMAL) Protime-INR (05/12/2023 2:57 PM EDT) Prothrombin Time 16.6(H) 12.0 - 14.3 sec LAB COAGULATION METHOD 05/12/2023 3:59 PM EDT [facility] INR 1.4(H) 0.9 - 1.1 LAB COAGULATION METHOD 05/12/2023 3:59 PM EDT [facility] Blood Venous blood specimen / Unknown Venipuncture / Unknown 05/12/2023 2:57 PM EDT 05/12/2023 3:07 PM EDT Narrative [facility] - 05/12/2023 3:59 PM EDT OPTIMAL INR RANGES FOR PATIENT ON ORAL ANTICOAGULANT THERAPY Prevention of venous thromboembolism ?INR 2.0 to 3.0 In patients with heart disease: Atrial fibrillation ?INR 2.0 to 3.0 Valvular heart disease ? INR 2.0 to 3.0 Tissue heart valves ?INR 2.0 to 3.0 Mechanical prosthetic valves ? INR 2.5 to 3.5 Prevention of recurrent IN ? INR 2.5 to 3.5 Andrea [facility] BLOOD ORDERABLES Final Resu lt Performing Organization Address [facility] de Phone Number [facility] [address] [place] [address] * (ABNORMAL) Phosphorus (05/12/2023 2:57 PM EDT) Phosphorus, Plasma 1.3(L) 2.5 - 4.5 mg/dL 05/12/2023 3:45 PM EDT [facility] Blood Venous blood specimen / Unknown Venipuncture / Unknown 05/12/2023 2:57 PM EDT 05/12/2023 3:07 PM EDT Andrea RO[facility] BLOOD ORDERABLES Final Resu lt Performing Organization Address [facility] Co de Phone Number [facility] [address] [place] [address] * (ABNORMAL) Magnesium (05/12/2023 2:57 PM EDT) Magnesium, Plasma 3.5(H) 1.9 - 2.4 mg/dL 05/12/2023 3:45 PM EDT [facility] Blood Venous blood specimen / Unknown Venipuncture / Unknown 05/12/2023 2:57 PM EDT 05/12/2023 3:07 PM EDT us Andrea ROCHA LAB BLOOD ORDERABLES Final Resu lt [facility] [address] [place] [address] * (ABNORMAL) Basic metabolic panel (05/12/2023 2:57 PM EDT) Glucose, Plasma 175(H) 74 - 99 mg/dL 05/12/2023 3:45 PM EDT [facility] BUN, Plasma 12 8 - 23 mg/dL 05/12/2023 3:45 PM EDT [facility] Creatinine, Plasma 0.93 0.80 - 1.30 mg/dL 05/12/2023 3:45 PM EDT [facility] BUN/Creatinine Ratio 13 05/12/2023 3:45 PM EDT [facility] Sodium, Plasma 143 136 - 145 mmol/L 05/12/2023 3:45 PM EDT [facility] Potassium, Plasma 3.7 3.7 - 4.8 mmol/L 05/12/2023 3:45 PM EDT [facility] Chloride, Plasma 112(H) 97 - 107 mmol/L 05/12/2023 3:45 PM EDT [facility] CO2, Plasma 22 22 - 29 mmol/L 05/12/2023 3:45 PM EDT [facility] Anion Gap 9 6 - 16 mmol/L 05/12/2023 3:45 PM EDT [facility] Total Calcium, Plasma 7.8(L) 8.9 - 10.2 mg/dL 05/12/2023 3:45 PM EDT [facility] eGFRcr 85.6 mL/min/1.7 3m*2 05/12/2023 3:45 PM EDT [facility] Comment:Reported eGFRcr in m L/min/1.73m2 is based the CKD-EPI 2020 equation that does not use a race coefficient. Blood Venous blood specimen / Unknown Venipuncture / Unknown 05/12/2023 2:57 PM EDT 05/12/2023 3:07 PM EDT us Andrea ROCHA LAB BLOOD ORDERABLES Final Resu lt [facility] [address] [place] [address] * (ABNORMAL) CBC (05/12/2023 2:57 PM EDT) WBC Count 9.42 3.70 - 10.30 10*3/uL LAB HEMATOLOGY METHOD 05/12/2023 3:15 PM EDT [facility] RBC Count 3.85(L) 4.60 - 6.10 10*6/uL LAB HEMATOLOGY METHOD 05/12/2023 3:15 PM EDT [facility] HGB 10.7(L) 13.7 - 17.5 g/dL LAB HEMATOLOGY METHOD 05/12/2023 3:15 PM EDT [facility] HCT 34.0(L) 40.0 - 51.0 % LAB HEMATOLOGY METHOD 05/12/2023 3:15 PM EDT [facility] Platelet Count 145(L) 155 - 369 10*3/uL LAB HEMATOLOGY METHOD 05/12/2023 3:15 PM EDT [facility] MCV 88 79 - 98 fL LAB HEMATOLOGY METHOD 05/12/2023 3:15 PM EDT [facility] MCH 27.8 26.0 - 32.0 pg LAB HEMATOLOGY METHOD 05/12/2023 3:15 PM EDT [facility] MCHC 31.5 30.7 - 35.5 g/dL LAB HEMATOLOGY METHOD 05/12/2023 3:15 PM EDT [facility] RDW 13.8 11.5 - 14.5 % LAB HEMATOLOGY METHOD 05/12/2023 3:15 PM EDT [facility] MPV 10.5 8.8 - 12.5 fL LAB HEMATOLOGY METHOD 05/12/2023 3:15 PM EDT [facility] nRBC 0.0 <=0.0 per 100 WBCs LAB HEMATOLOGY METHOD 05/12/2023 3:15 PM EDT [facility] Blood Venous blood specimen / Unknown Venipuncture / Unknown 05/12/2023 2:57 PM EDT 05/12/2023 3:06 PM EDT Andrea RO[facility] LAB BLOOD ORDERABLES Final Resu lt Performing Organization Address City/[facility] Co de Phone Number [facility] [address] [place] [address] * ECG Adult - Upon Admissoin to CVICU (05/12/2023 2:42 PM EDT) EKG DIAGNOSIS CLASS Abnormal MUSE ECG Ventricular Rate 69 BPM MUSE ECG Atrial Rate 69 BPM MUSE ECG OK Interval 204 ms MUSE ECG QRSD Interval 96 ms MUSE ECG QT Interval 436 ms MUSE ECG QTC Interval 467 ms MUSE ECG P [place] 65 degrees MUSE ECG R [place] 25 degrees MUSE ECG T Wave [place] 98 degrees MUSE ECG Diagnosis Normal sinus rhythm MUSE ECG Diagnosis Nonspecific ST and T wave abnormality MUSE ECG Diagnosis Confirmed by Juan Thompson ([id number]) on 05/12/2023 3:51:15 PM MUSE ECG 05/12/2023 2:42 PM EDT 05/12/2023 3:51 PM EDT Andrea ROCHA ECG ORDERABLES Final Result Performing Organization Address [facility] Co de Phone Number MUSE ECG * (ABNORMAL) POCT arterial blood gas gem (05/12/2023 1:18 PM EDT) pH, Arterial 7.43(H) 7.31 - 7.42 05/12/2023 1:20 PM EDT [facility] pCO2, Arterial 33(L) 35 - 48 mm Hg 05/12/2023 1:20 PM EDT [facility] pO2, Arterial 293 >70 mm Hg 05/12/2023 1:20 PM EDT [facility] SO2, Arterial 100(H) 94 - 98 % 05/12/2023 1:20 PM EDT [facility] Base Excess, Arterial -2.1(L) -2 - 3 mmol/L 05/12/2023 1:20 PM EDT [facility] HCO3, Arterial 21.9(L) 22 - 26 mmol/L 05/12/2023 1:20 PM EDT [facility] Total Hemoglobin, Arterial, Whole Blood 8.1(L) 13.7 - 17.5 g/dL 05/12/2023 1:20 PM EDT [facility] Hematocrit, Arterial 24.0(L) 40.0 - 51.0 % 05/12/2023 1:20 PM EDT [facility] Sodium, Arterial 139 136 - 145 mmol/L 05/12/2023 1:20 PM EDT [facility] Potassium, Arterial 3.9 3.6 - 4.9 mmol/L 05/12/2023 1:20 PM EDT [facility] Chloride, Whole Blood 112(H) 97 - 107 mmol/L 05/12/2023 1:20 PM EDT [facility] Glucose, Arterial 255(H) 74 - 99 mg/dL 05/12/2023 1:20 PM EDT [facility] Ionized Calcium, Arterial 4.7 4.6 - 5.1 mg/dL 05/12/2023 1:20 PM EDT [facility] Lactate, Arterial 2.0(H) 0.5 - 1.6 mmol/L 05/12/2023 1:20 PM EDT [facility] Body Temperature 37.0 Celsius 05/12/2023 1:20 PM EDT [facility] pH, Temp Corrected, Arterial 7.43(H) 7.31 - 7.42 05/12/2023 1:20 PM EDT [facility] pCO2, Temp Corrected, Arterial 33(L) 35 - 48 mm Hg 05/12/2023 1:20 PM EDT [facility] pO2, Temp Corrected, Arterial 293 >70 mm Hg 05/12/2023 1:20 PM EDT [facility] Insurance Investigator ID Turner, Alexa 05/12/2023 1:20 PM EDT [facility] Blood, Arterial Whole blood specimen / Unknown 05/12/2023 1:18 PM EDT 05/12/2023 1:20 PM EDT us Pablo Mckeon MD LAB POINT OF CARE TE ST DOCKED DEVICE UNSOLICITED RESULTS Final Result [facility] [address] [place] [address] * POCT ACT (05/12/2023 1:15 PM EDT) [facility] ACT+ (High Range) 96 68 - 600 seconds 05/13/2023 9:26 PM EDT [facility] Insurance Investigator ID Alexa Tompkins 05/13/2023 9:26 PM EDT [facility] [place] [id number] 05/13/2023 9:26 PM EDT [facility] Comment 05/13/2023 9:26 PM EDT [facility] Comment: ACT performed by staff at point of care. ??Results are reported immediately to the physician or primary caregiver. The activated clotting time is performed on patients with diverse clinical characteristics and treatment histories. ??Therefore, expected values are variable and results must be interpreted in the context of each individual patient. Whole Blood Venous blood specimen / Unknown 05/12/2023 1:15 PM EDT 05/13/2023 9:26 PM EDT Pablo Mckeon MD LAB POINT OF CARE TE ST DOCKED DEVICE UNSOLICITED RESULTS Final Result [facility] [address] [place] [address] * (ABNORMAL) POCT arterial blood gas gem (05/12/2023 12:33 PM EDT) [facility] pH, Arterial 7.35 7.31 - 7.42 05/12/2023 12:34 PM EDT [facility] pCO2, Arterial 42 35 - 48 mm Hg 05/12/2023 12:34 PM EDT [facility] pO2, Arterial 290 >70 mm Hg 05/12/2023 12:34 PM EDT [facility] SO2, Arterial 100(H) 94 - 98 % 05/12/2023 12:34 PM EDT [facility] Base Excess, Arterial -2.3(L) -2 - 3 mmol/L 05/12/2023 12:34 PM EDT [facility] HCO3, Arterial 23.2 22 - 26 mmol/L 05/12/2023 12:34 PM EDT [facility] Total Hemoglobin, Arterial, Whole Blood 7.4(L) 13.7 - 17.5 g/dL 05/12/2023 12:34 PM EDT [facility] Hematocrit, Arterial 22.0(L) 40.0 - 51.0 % 05/12/2023 12:34 PM EDT [facility] Sodium, Arterial 138 136 - 145 mmol/L 05/12/2023 12:34 PM EDT [facility] Potassium, Arterial 4.3 3.6 - 4.9 mmol/L 05/12/2023 12:34 PM EDT [facility] Chloride, Whole Blood 110(H) 97 - 107 mmol/L 05/12/2023 12:34 PM EDT [facility] Glucose, Arterial 296(H) 74 - 99 mg/dL 05/12/2023 12:34 PM EDT [facility] Ionized Calcium, Arterial 4.9 4.6 - 5.1 mg/dL 05/12/2023 12:34 PM EDT [facility] Lactate, Arterial 1.7(H) 0.5 - 1.6 mmol/L 05/12/2023 12:34 PM EDT [facility] Body Temperature 37.0 Celsius 05/12/2023 12:34 PM EDT [facility] pH, Temp Corrected, Arterial 7.35 7.31 - 7.42 05/12/2023 12:34 PM EDT [facility] pCO2, Temp Corrected, Arterial 42 35 - 48 mm Hg 05/12/2023 12:34 PM EDT [facility] pO2, Temp Corrected, Arterial 290 >70 mm Hg 05/12/2023 12:34 PM EDT [facility] Insurance Investigator ID Ash Campos 05/12/2023 12:34 PM EDT [facility] Blood, Arterial Whole blood specimen / Unknown 05/12/2023 12:33 PM EDT 05/12/2023 12:34 PM EDT us Pablo Mckeon MD LAB POINT OF CARE TE ST DOCKED DEVICE UNSOLICITED RESULTS Final Result [facility] [address] [place] [address] * (ABNORMAL) POCT ACT (05/12/2023 12:30 PM EDT) ACT+ (High Range) >600(H) 68 - 600 seconds 05/13/2023 9:26 PM EDT [facility] Insurance Investigator ID Ash Campos 05/13/2023 9:26 PM EDT [facility] ACT Device ID [id number] 05/13/2023 9:26 PM EDT [facility] Whole Blood Venous blood specimen / Unknown 05/12/2023 12:30 PM EDT 05/13/2023 9:26 PM EDT us Pablo Mckeon MD LAB POINT OF CARE TE ST DOCKED DEVICE UNSOLICITED RESULTS Final Result [facility] [address] [place] [address] * (ABNORMAL) POCT arterial blood gas gem (05/12/2023 12:06 PM EDT) pH, Arterial 7.42 7.31 - 7.42 05/12/2023 12:08 PM EDT [facility] pCO2, Arterial 34(L) 35 - 48 mm Hg 05/12/2023 12:08 PM EDT [facility] pO2, Arterial 240 >70 mm Hg 05/12/2023 12:08 PM EDT [facility] SO2, Arterial 100(H) 94 - 98 % 05/12/2023 12:08 PM EDT [facility] Base Excess, Arterial -2.1(L) -2 - 3 mmol/L 05/12/2023 12:08 PM EDT [facility] HCO3, Arterial 22.1 22 - 26 mmol/L 05/12/2023 12:08 PM EDT [facility] Total Hemoglobin, Arterial, Whole Blood 7.3(L) 13.7 - 17.5 g/dL 05/12/2023 12:08 PM EDT [facility] Hematocrit, Arterial 22.0(L) 40.0 - 51.0 % 05/12/2023 12:08 PM EDT [facility] Sodium, Arterial 137 136 - 145 mmol/L 05/12/2023 12:08 PM EDT [facility] Potassium, Arterial 4.6 3.6 - 4.9 mmol/L 05/12/2023 12:08 PM EDT [facility] Chloride, Whole Blood 110(H) 97 - 107 mmol/L 05/12/2023 12:08 PM EDT [facility] Glucose, Arterial 331(H) 74 - 99 mg/dL 05/12/2023 12:08 PM EDT [facility] Ionized Calcium, Arterial 4.9 4.6 - 5.1 mg/dL 05/12/2023 12:08 PM EDT [facility] Lactate, Arterial 1.5 0.5 - 1.6 mmol/L 05/12/2023 12:08 PM EDT [facility] Body Temperature 37.0 Celsius 05/12/2023 12:08 PM EDT [facility] pH, Temp Corrected, Arterial 7.42 7.31 - 7.42 05/12/2023 12:08 PM EDT [facility] pCO2, Temp Corrected, Arterial 34(L) 35 - 48 mm Hg 05/12/2023 12:08 PM EDT [facility] pO2, Temp Corrected, Arterial 240 >70 mm Hg 05/12/2023 12:08 PM EDT [facility] Insurance Investigator ID Ash Campos 05/12/2023 12:08 PM EDT [facility] Blood, Arterial Whole blood specimen / Unknown 05/12/2023 12:06 PM EDT 05/12/2023 12:08 PM EDT Pablo Mckeon MD LAB POINT OF CARE TE ST DOCKED DEVICE UNSOLICITED RESULTS Final Result Performing Organization Address City/State/[facility] Co de Phone Number [facility] [address] [place] [address] * (ABNORMAL) POCT ACT (05/12/2023 12:01 PM EDT) ACT+ (High Range) >600(H) 68 - 600 seconds 05/13/2023 9:26 PM EDT [facility] Insurance Investigator ID Ash Campos 05/13/2023 9:26 PM EDT [facility] ACT Device ID [id number] 05/13/2023 9:26 PM EDT [facility] Whole Blood Venous blood specimen / Unknown 05/12/2023 12:01 PM EDT 05/13/2023 9:26 PM EDT Pablo Mckeon MD LAB POINT OF CARE TE ST DOCKED DEVICE UNSOLICITED RESULTS Final Result [facility] [address] [place] [address] * (ABNORMAL) POCT arterial blood gas gem (05/12/2023 11:33 AM EDT) pH, Arterial 7.30(L) 7.31 - 7.42 05/12/2023 11:34 AM EDT [facility] pCO2, Arterial 46 35 - 48 mm Hg 05/12/2023 11:34 AM EDT [facility] pO2, Arterial 304 >70 mm Hg 05/12/2023 11:34 AM EDT [facility] SO2, Arterial 100(H) 94 - 98 % 05/12/2023 11:34 AM EDT [facility] Base Excess, Arterial -3.6(L) -2 - 3 mmol/L 05/12/2023 11:34 AM EDT [facility] HCO3, Arterial 22.6 22 - 26 mmol/L 05/12/2023 11:34 AM EDT [facility] Total Hemoglobin, Arterial, Whole Blood 7.0(L) 13.7 - 17.5 g/dL 05/12/2023 11:34 AM EDT [facility] Hematocrit, Arterial 21.0(L) 40.0 - 51.0 % 05/12/2023 11:34 AM EDT [facility] Sodium, Arterial 138 136 - 145 mmol/L 05/12/2023 11:34 AM EDT [facility] Potassium, Arterial 3.8 3.6 - 4.9 mmol/L 05/12/2023 11:34 AM EDT [facility] Chloride, Whole Blood 109(H) 97 - 107 mmol/L 05/12/2023 11:34 AM EDT [facility] Glucose, Arterial 326(H) 74 - 99 mg/dL 05/12/2023 11:34 AM EDT [facility] Ionized Calcium, Arterial 4.9 4.6 - 5.1 mg/dL 05/12/2023 11:34 AM EDT [facility] Lactate, Arterial 2.0(H) 0.5 - 1.6 mmol/L 05/12/2023 11:34 AM EDT [facility] Body Temperature 37.0 Celsius 05/12/2023 11:34 AM EDT [facility] pH, Temp Corrected, Arterial 7.30(L) 7.31 - 7.42 05/12/2023 11:34 AM EDT [facility] pCO2, Temp Corrected, Arterial 46 35 - 48 mm Hg 05/12/2023 11:34 AM EDT [facility] pO2, Temp Corrected, Arterial 304 >70 mm Hg 05/12/2023 11:34 AM EDT [facility] Insurance Investigator ID Alexa Tompkins 05/12/2023 11:34 AM EDT [facility] Blood, Arterial Whole blood specimen / Unknown 05/12/2023 11:33 AM EDT 05/12/2023 11:34 AM EDT Pablo Mckeon MD LAB POINT OF CARE TE ST DOCKED DEVICE UNSOLICITED RESULTS Final Result Performing Organization Address [facility] de Phone Number HEALTHCARE LAB [address] [place] [address] * (ABNORMAL) POCT ACT (05/12/2023 11:31 AM EDT) ACT+ (High Range) >600(H) 68 - 600 seconds 05/13/2023 9:26 PM EDT [facility] Insurance Investigator ID Alexa Tompkins 05/13/2023 9:26 PM EDT [facility] LAB [place] ID [id number] 05/13/2023 9:26 PM EDT [facility] Whole Blood Venous blood specimen / Unknown 05/12/2023 11:31 AM EDT 05/13/2023 9:26 PM EDT Pablo Mckeon MD LAB POINT OF CARE TE ST DOCKED DEVICE UNSOLICITED RESULTS Final Result Performing Organization Address City/[facility] Co de Phone Number [facility] [address] [place] [address] * (ABNORMAL) POCT arterial blood gas gem (05/12/2023 11:07 AM EDT) pH, Arterial 7.33 7.31 - 7.42 05/12/2023 11:08 AM EDT [facility] pCO2, Arterial 46 35 - 48 mm Hg 05/12/2023 11:08 AM [facility] pO2, Arterial 371 >70 mm Hg 05/12/2023 11:08 AM [facility] SO2, Arterial 100(H) 94 - 98 % 05/12/2023 11:08 AM [facility] Base Excess, Arterial -1.5 -2 - 3 mmol/L 05/12/2023 11:08 AM [facility] HCO3, Arterial 24.3 22 - 26 mmol/L 05/12/2023 11:08 AM [facility] Total Hemoglobin, Arterial, Whole Blood 6.6(L) 13.7 - 17.5 g/dL 05/12/2023 11:08 AM [facility] Hematocrit, Arterial 20.0(L) 40.0 - 51.0 % 05/12/2023 11:08 [facility] Sodium, Arterial 136 136 - 145 mmol/L 05/12/2023 11:08 AM [facility] Potassium, Arterial 4.1 3.6 - 4.9 mmol/L 05/12/2023 11:08 [facility] Chloride, Whole Blood 109(H) 97 - 107 mmol/L 05/12/2023 11:08 AM [facility] Glucose, Arterial 317(H) 74 - 99 mg/dL 05/12/2023 11:08 AM [facility] Ionized Calcium, Arterial 4.7 4.6 - 5.1 mg/dL 05/12/2023 11:08 AM [facility] Lactate, Arterial 2.1(H) 0.5 - 1.6 mmol/L 05/12/2023 11:08 AM [facility] Body Temperature 37.0 Celsius 05/12/2023 11:08 AM [facility] pH, Temp Corrected, Arterial 7.33 7.31 - 7.42 05/12/2023 11:08 AM [facility] pCO2, Temp Corrected, Arterial 46 35 - 48 mm Hg 05/12/2023 11:08 AM [facility] pO2, Temp Corrected, Arterial 371 >70 mm Hg 05/12/2023 11:08 AM [facility] Insurance Investigator ID Short, Alexa 05/12/2023 11:08 AM [facility] Blood, Arterial Whole blood specimen / Unknown 05/12/2023 11:07 AM EDT 05/12/2023 11:08 AM EDT Pablo Mckeon MD LAB POINT OF CARE TE ST DOCKED DEVICE UNSOLICITED RESULTS Final Result Performing Organization Address [facility] Co de Phone Number [facility]ARE [facility] [address] [place] [address] * (ABNORMAL) POCT ACT (05/12/2023 11:04 AM EDT) Pathologist [facility] ACT+ (High Range) >600(H) 68 - 600 seconds 05/13/2023 9:26 PM EDT [facility] Insurance Investigator ID Alexa Tompkins 05/13/2023 9:26 PM EDT [facility] LAB ACT Device ID [id number] 05/13/2023 9:26 PM EDT [facility] Whole Blood Venous blood specimen / Unknown 05/12/2023 11:04 AM EDT 05/13/2023 9:26 PM EDT Pablo Mckeon MD LAB POINT OF CARE TE ST DOCKED DEVICE UNSOLICITED RESULTS Final Result Performing Organization Address [facility] de Phone Number [facility] [address] [place] [address] * (ABNORMAL) POCT arterial blood gas gem (05/12/2023 10:35 AM EDT) pH, Arterial 7.33 7.31 - 7.42 05/12/2023 10:36 AM EDT [facility] pCO2, Arterial 45 35 - 48 mm Hg 05/12/2023 10:36 AM EDT [facility] pO2, Arterial 409 >70 mm Hg 05/12/2023 10:36 AM EDT [facility] SO2, Arterial 100(H) 94 - 98 % 05/12/2023 10:36 AM EDT [facility] Base Excess, Arterial -2.3(L) -2 - 3 mmol/L 05/12/2023 10:36 AM EDT [facility] HCO3, Arterial 23.7 22 - 26 mmol/L 05/12/2023 10:36 AM EDT [facility] Total Hemoglobin, Arterial, Whole Blood 10.0(L) 13.7 - 17.5 g/dL 05/12/2023 10:36 AM EDT [facility] Hematocrit, Arterial 30.0(L) 40.0 - 51.0 % 05/12/2023 10:36 AM EDT [facility] Sodium, Arterial 141 136 - 145 mmol/L 05/12/2023 10:36 AM EDT [facility] Potassium, Arterial 4.4 3.6 - 4.9 mmol/L 05/12/2023 10:36 AM EDT [facility] Chloride, Whole Blood 111(H) 97 - 107 mmol/L 05/12/2023 10:36 AM EDT [facility] Glucose, Arterial 111(H) 74 - 99 mg/dL 05/12/2023 10:36 AM EDT [facility] Ionized Calcium, Arterial 5.0 4.6 - 5.1 mg/dL 05/12/2023 10:36 AM EDT [facility] Lactate, Arterial 0.7 0.5 - 1.6 mmol/L 05/12/2023 10:36 AM EDT [facility] Body Temperature 37.0 Celsius 05/12/2023 10:36 AM EDT [facility] pH, Temp Corrected, Arterial 7.33 7.31 - 7.42 05/12/2023 10:36 AM EDT [facility] pCO2, Temp Corrected, Arterial 45 35 - 48 mm Hg 05/12/2023 10:36 AM EDT [facility] pO2, Temp Corrected, Arterial 409 >70 mm Hg 05/12/2023 10:36 AM EDT [facility] Insurance Investigator ID Turner, Alexa 05/12/2023 10:36 AM EDT [facility] Blood, Arterial Whole blood specimen / Unknown 05/12/2023 10:35 AM EDT 05/12/2023 10:36 AM EDT us Pablo Mckeon MD LAB POINT OF CARE TE ST DOCKED DEVICE UNSOLICITED RESULTS Final Result [facility] [address] [place] [address] * (ABNORMAL) POCT ACT (05/12/2023 10:32 AM EDT) ACT+ (High Range) >600(H) 68 - 600 seconds 05/13/2023 9:26 PM EDT [facility] Insurance Investigator ID Alexa Tompkins 05/13/2023 9:26 PM EDT [facility] ACT Device ID [id number] 05/13/2023 9:26 PM EDT [facility] Whole Blood Venous blood specimen / Unknown 05/12/2023 10:32 AM EDT 05/13/2023 9:26 PM EDT us Pablo Mckeon MD LAB POINT OF CARE TE ST DOCKED DEVICE UNSOLICITED RESULTS Final Result Performing Organization Address City/State/[facility] Co de Phone Number [facility] [address] [place] [address] * (ABNORMAL) POCT arterial blood gas gem (05/12/2023 10:15 AM EDT) pH, Arterial 7.36 7.31 - 7.42 05/12/2023 10:16 AM EDT [facility] pCO2, Arterial 45 35 - 48 mm Hg 05/12/2023 10:16 AM EDT [facility] pO2, Arterial 337 >70 mm Hg 05/12/2023 10:16 AM EDT [facility] SO2, Arterial 100(H) 94 - 98 % 05/12/2023 10:16 AM EDT [facility] Base Excess, Arterial -0.3 -2 - 3 mmol/L 05/12/2023 10:16 AM EDT [facility] HCO3, Arterial 25.4 22 - 26 mmol/L 05/12/2023 10:16 AM EDT [facility] ETCO2, Arterial 33 mmol/L 10:16 AM EDT [facility] Total Hemoglobin, Arterial, Whole Blood 10.6(L) 13.7 - 17.5 g/dL 05/12/2023 10:16 AM EDT [facility] Hematocrit, Arterial 32.0(L) 40.0 - 51.0 % 05/12/2023 10:16 AM EDT [facility] Sodium, Arterial 139 136 - 145 mmol/L 05/12/2023 10:16 AM EDT [facility] Potassium, Arterial 4.5 3.6 - 4.9 mmol/L 05/12/2023 10:16 AM EDT [facility] Chloride, Whole Blood 111(H) 97 - 107 mmol/L 05/12/2023 10:16 AM EDT [facility] Glucose, Arterial 109(H) 74 - 99 mg/dL 05/12/2023 10:16 AM EDT [facility] Ionized Calcium, Arterial 5.1 4.6 - 5.1 mg/dL 05/12/2023 10:16 AM EDT [facility] Lactate, Arterial 0.6 0.5 - 1.6 mmol/L 05/12/2023 10:16 AM EDT [facility] Body Temperature 37.0 Celsius 05/12/2023 10:16 AM EDT [facility] pH, Temp Corrected, Arterial 7.36 7.31 - 7.42 05/12/2023 10:16 AM EDT [facility] pCO2, Temp Corrected, Arterial 45 35 - 48 mm Hg 05/12/2023 10:16 AM EDT [facility] pO2, Temp Corrected, Arterial 337 >70 mm Hg 05/12/2023 10:16 AM EDT [facility] Insurance Investigator ID Sandeep Hunter 05/12/2023 10:16 AM EDT [facility] Blood, Arterial Whole blood specimen / Unknown 05/12/2023 10:15 AM EDT 05/12/2023 10:16 AM EDT us Pablo Mckeon MD LAB POINT OF CARE TE ST DOCKED DEVICE UNSOLICITED RESULTS Final Result Performing Organization Address City/State/[facility] Co de Phone Number [facility] [address] [place] [id number] * (ABNORMAL) CBC W/O Differential (05/12/2023 9:03 AM EDT) WBC Count 5.82 3.70 - 10.30 10*3/uL LAB HEMATOLOGY METHOD 05/12/2023 9:18 AM EDT [facility] RBC Count 3.74(L) 4.60 - 6.10 10*6/uL LAB HEMATOLOGY METHOD 05/12/2023 9:18 AM EDT [facility] HGB 10.3(L) 13.7 - 17.5 g/dL LAB HEMATOLOGY METHOD 05/12/2023 9:18 AM EDT [facility] HCT 32.5(L) 40.0 - 51.0 % LAB HEMATOLOGY METHOD 05/12/2023 9:18 AM EDT [facility] Platelet Count 170 155 - 369 10*3/uL LAB HEMATOLOGY METHOD 05/12/2023 9:18 AM EDT [facility] MCV 87 79 - 98 fL LAB HEMATOLOGY METHOD 05/12/2023 9:18 AM EDT [facility] MCH 27.5 26.0 - 32.0 pg LAB HEMATOLOGY METHOD 05/12/2023 9:18 AM EDT [facility] MCHC 31.7 30.7 - 35.5 g/dL LAB HEMATOLOGY METHOD 05/12/2023 9:18 AM EDT [facility] RDW 13.8 11.5 - 14.5 % LAB HEMATOLOGY METHOD 05/12/2023 9:18 AM EDT [facility] MPV 9.9 8.8 - 12.5 fL LAB HEMATOLOGY METHOD 05/12/2023 9:18 AM EDT [facility] nRBC 0.0 <=0.0 per 100 WBCs LAB HEMATOLOGY METHOD 05/12/2023 9:18 AM EDT [facility] Blood Arterial blood specimen / Unknown Arterial Puncture / Unknown 05/12/2023 9:03 AM EDT 05/12/2023 9:11 AM EDT us Sandeep Hunter MD LAB BLOOD ORDERABLES Final Resu lt [facility] [address] [place] [id number] * (ABNORMAL) POCT arterial blood gas gem (05/12/2023 8:55 AM EDT) pH, Arterial 7.52(H) 7.31 - 7.42 05/12/2023 8:57 AM EDT [facility] pCO2, Arterial 30(L) 35 - 48 mm Hg 05/12/2023 8:57 AM EDT [facility] pO2, Arterial 201 >70 mm Hg 05/12/2023 8:57 AM EDT [facility] SO2, Arterial 100(H) 94 - 98 % 05/12/2023 8:57 AM EDT [facility] Base Excess, Arterial 2.1 -2 - 3 mmol/L 05/12/2023 8:57 AM [facility] HCO3, Arterial 24.5 22 - 26 mmol/L 05/12/2023 8:57 AM [facility] ETCO2, Arterial 22 mmol/L 8:57 AM [facility] Total Hemoglobin, Arterial, Whole Blood 10.5(L) 13.7 - 17.5 g/dL 05/12/2023 8:57 AM [facility] Hematocrit, Arterial 32.0(L) 40.0 - 51.0 % 05/12/2023 8:57 AM [facility] Sodium, Arterial 139 136 - 145 mmol/L 05/12/2023 8:57 AM [facility] Potassium, Arterial 4.4 3.6 - 4.9 mmol/L 05/12/2023 8:57 AM [facility] Chloride, Whole Blood 110(H) 97 - 107 mmol/L 05/12/2023 8:57 AM [facility] Glucose, Arterial 99 74 - 99 mg/dL 05/12/2023 8:57 AM [facility] Ionized Calcium, Arterial 5.1 4.6 - 5.1 mg/dL 05/12/2023 8:57 AM [facility] Lactate, Arterial 1.0 0.5 - 1.6 mmol/L 05/12/2023 8:57 AM [facility] Body Temperature 37.0 Celsius 05/12/2023 8:57 AM [facility] pH, Temp Corrected, Arterial 7.52(H) 7.31 - 7.42 05/12/2023 8:57 AM [facility] pCO2, Temp Corrected, Arterial 30(L) 35 - 48 mm Hg 05/12/2023 8:57 AM [facility] pO2, Temp Corrected, Arterial 201 >70 mm Hg 05/12/2023 8:57 AM [facility] Insurance Investigator ID Sandeep Hunter 05/12/2023 8:57 AM [facility] Blood, Arterial Whole blood specimen / Unknown 05/12/2023 8:55 AM EDT 05/12/2023 8:57 AM EDT us Pablo Mckeon MD LAB POINT OF CARE TE ST DOCKED DEVICE UNSOLICITED RESULTS Final Result Performing Organization Address [facility] de Phone Number HEALTHCARE LAB [address] [place] [address] * POCT ACT (05/12/2023 7:57 AM EDT) ACT+ (High Range) 94 68 - 600 seconds 05/13/2023 9:21 PM EDT [facility] Insurance Investigator ID Modesto Morfin 05/13/2023 9:21 PM EDT [facility] [place] [id number] 05/13/2023 9:21 PM EDT [facility] Comment 05/13/2023 9:21 PM EDT [facility] Comment: ACT performed by staff at point of care. ??Results are reported immediately to the physician or primary caregiver. The activated clotting time is performed on patients with diverse clinical characteristics and treatment histories. ??Therefore, expected values are variable and results must be interpreted in the context of each individual patient. Whole Blood Venous blood specimen / Unknown 05/12/2023 7:57 AM EDT 05/13/2023 9:21 PM EDT us Pablo Mckeon MD LAB POINT OF CARE TE ST DOCKED DEVICE UNSOLICITED RESULTS Final Result Performing Organization Address [facility] de Phone Number [facility] [address] [place] [address] * ECG Adult (05/12/2023 6:34 AM EDT) EKG DIAGNOSIS CLASS Normal MUSE ECG Ventricular Rate 64 BPM MUSE ECG Atrial Rate 64 BPM MUSE ECG OK Interval 164 ms MUSE ECG QRSD Interval 82 ms MUSE ECG QT Interval 388 ms MUSE ECG QTC Interval 400 ms MUSE ECG P [place] 20 degrees MUSE ECG R [place] 8 degrees MUSE ECG T Wave [place] 75 degrees MUSE ECG Diagnosis Normal sinus rhythm MUSE ECG Diagnosis Confirmed by Juan Thompson ([id number]) on 05/12/2023 10:44:40 AM MUSE ECG 05/12/2023 6:34 AM EDT 05/12/2023 10:44 AM EDT Sandeep Hunter MD ECG ORDERABLES Final Result MUSE ECG * Type and Screen (05/12/2023 6:25 AM EDT) ABO/Rh O Positive 05/12/2023 6:17 AM EDT [facility] Antibody Screen Negative 05/12/2023 6:17 AM EDT [facility]LO[facility] Specimen Expiration 05/15/2023 23:59 05/12/2023 6:17 AM EDT BLOOD B[facility] Blood Venous blood specimen / Unknown Venipuncture / Unknown 05/12/2023 6:25 AM EDT 05/12/2023 6:31 AM EDT Pablo Mckeon MD LAB BLOOD BANK TEST ORDERABL ES Final Result Performing Organization Address City/[facility]/ZIP Co de Phone Number BLOOD BANK [address] * (ABNORMAL) Basic metabolic panel (05/12/2023 6:25 AM EDT) Glucose, Plasma 102(H) 74 - 99 mg/dL 05/12/2023 7:05 AM EDT [facility] BUN, Plasma 14 8 - 23 mg/dL 05/12/2023 7:05 AM EDT [facility] Creatinine, Plasma 1.12 0.80 - 1.30 mg/dL 05/12/2023 7:05 AM EDT [facility] BUN/Creatinine Ratio 13 05/12/2023 7:05 AM EDT [facility] Sodium, Plasma 139 136 - 145 mmol/L 05/12/2023 7:05 AM EDT [facility] Potassium, Plasma 4.2 3.7 - 4.8 mmol/L 05/12/2023 7:05 AM EDT [facility] Chloride, Plasma 107 97 - 107 mmol/L 05/12/2023 7:05 AM EDT [facility] CO2, Plasma 22 22 - 29 mmol/L 05/12/2023 7:05 AM EDT [facility] Anion Gap 10 6 - 16 mmol/L 05/12/2023 7:05 AM EDT [facility] Total Calcium, Plasma 9.5 8.9 - 10.2 mg/dL 05/12/2023 7:05 AM EDT HEALTHCARE LAB eGFRcr 68.5 mL/min/1.7 3m*2 05/12/2023 7:05 AM EDT [facility] Comment:Reported eGFRcr in m L/min/1.73m2 is based the CKD-EPI 2020 equation that does not use a race coefficient. Blood Venous blood specimen / Unknown Venipuncture / Unknown 05/12/2023 6:25 AM EDT 05/12/2023 6:30 AM EDT us Sandeep Hunter MD LAB BLOOD ORDERABLES Final Resu lt [facility] [address] [place] [address] documented in this encounter Visit Diagnoses Diagnosis CAD in [place] artery- Primary Acute respiratory failure with hypoxia (CMS/HCC) S/P CABG x 3 Postsurgical aortocoronary bypass status CAD in [place] artery S/P CABG (coronary artery bypass graft) Postsurgical aortocoronary bypass status Primary hypertension Unspecified essential hypertension Acute postoperative pain Other acute postoperative pain History of thoracic irradiation COPD (chronic obstructive pulmonary disease) (CMS/HCC) Chronic airway obstruction, not elsewhere classified Acute respiratory failure with hypoxia (CMS/HCC) Hyperglycemia Other abnormal glucose Thrombocytopenia (CMS/HCC) Unspecified thrombocytopenia Volume overload Fluid overload HLD (hyperlipidemia) Other and unspecified hyperlipidemia HHD (hypertensive heart disease) Unspecified hypertensive heart disease without heart failure Osteoporosis Unspecified osteoporosis PAD (peripheral artery disease) (CMS/HCC) Unspecified peripheral vascular disease H/O heart artery stent Dyspnea on exertion Other dyspnea and respiratory abnormality Exertional angina (CMS/HCC) Other and unspecified angina pectoris S/P CABG x 2 Postsurgical aortocoronary bypass status Acute blood loss anemia Acute posthemorrhagic anemia Leukocytosis Leukocytosis, unspecified Hypocalcemia Tobacco abuse, in remission Personal history of tobacco use, presenting hazards to health Overweight Hypophosphatemia Disorders of phosphorus metabolism Hypermagnesemia Disorders of magnesium metabolism Hyperkalemia Hyperpotassemia documented in this encounter Admitting Diagnoses Diagnosis CAD in [place] artery documented in this encounter Administered Medications Inactive Administered Medications - up to 3 most recent administrations Medication Order MAR Action Action Date Dose Rate Site acetaminophen (Tylenol) tablet 1,000 mg 1,000 mg, Oral, Once, 1 dose, On Mon05/12/23 at 0630, Routine, Holding - Preprocedure Given 05/12/2023 6:32 AM EDT 1,000 mg acetaminophen (Tylenol) tablet 650 mg 650 mg, Oral, Every 6 hours scheduled, First dose on Mon05/12/23 at 1800, Until Discontinued, Routine Given 05/15/2023 5:03 PM EDT 650 mg Given 05/15/2023 11:25 AM EDT 650 mg Given 05/15/2023 5:38 AM EDT 650 mg aspirin chewable tablet 81 mg 81 mg, Oral, Daily, First dose on Mon05/12/23 at 2200, Until Discontinued, Routine, Recovery(Phase II-Outpatient)/On Unit(Inpatient) Given 05/16/2023 8:42 AM EDT 81 mg Given 05/15/2023 8:01 AM EDT 81 mg Given 05/14/2023 8:24 AM EDT 81 mg atorvastatin (Lipitor) tablet 80 mg 80 mg, Oral, Nightly, First dose on Mon05/12/23 at 2100, Until Discontinued, Routine, Recovery(Phase II-Outpatient)/On Unit(Inpatient) Given 05/15/2023 8:17 PM EDT 80 mg Given 05/14/2023 8:32 PM EDT 80 mg Given 05/13/2023 8:42 PM EDT 80 mg bisacodyl (Dulcolax) suppository 10 mg 10 mg, Rectal, Daily, First dose on Mon05/14/23 at 0915, Until Discontinued, Routine Given 05/15/2023 8:02 AM EDT 10 mg Given 05/14/2023 9:06 AM EDT 10 mg calcium gluconate 1 g in sodium chloride 0.9% 100 mL IVPB (Mini-Bag Plus) 1 g, Intravenous, Once, 1 dose, On Mon05/13/23 at 0015, at 240 mL/hr, Administer over 30 Minutes, Routine New Bag 05/13/2023 12:19 AM EDT 1 g 240 mL/hr ceFAZolin (Ancef) injection 2 g 2 g, Intravenous, Every 8 hours, 3 doses, First dose on Mon05/12/23 at 2000, Last dose on Mon05/13/23 at 1200, Routine, Recovery(Phase II-Outpatient)/On Unit(Inpatient) Given 05/13/2023 12:16 PM EDT 2 g Given 05/13/2023 4:10 AM EDT 2 g Given 05/12/2023 8:16 PM EDT 2 g chlorhexidine (Peridex) 0.12 % solution 15 mL 15 mL, Mouth/Throat, 4 times daily, First dose on Mon05/12/23 at 1800, Until Discontinued, Routine Given 05/13/2023 10:11 AM EDT 15 mL Given 05/12/2023 6:00 PM EDT 15 mL docusate sodium (Colace) capsule 100 mg 100 mg, Oral, 2 times daily, First dose on Mon05/12/23 at 2100, Until Discontinued, Routine, Recovery(Phase II-Outpatient)/On Unit(Inpatient) Given 05/15/2023 8:02 AM EDT 100 mg Given 05/14/2023 8:33 PM EDT 100 mg Given 05/14/2023 8:24 AM EDT 100 mg enoxaparin (Lovenox) syringe 40 mg 40 mg, Subcutaneous, Daily, First dose on 05/13/23 at 0900, Until Discontinued, Routine Given 05/16/2023 8:43 AM EDT 40 mg Other Given 05/15/2023 8:02 AM EDT 40 mg Le ft Lower Abdomen Given 05/14/2023 8:24 AM EDT 40 mg Ri ght Lower Abdomen furosemide (Lasix) injection 40 mg 40 mg, Intravenous, Once, 1 dose, On 05/13/23 at 0345, Routine Given 05/13/2023 4:11 AM EDT 40 mg furosemide (Lasix) injection 40 mg 40 mg, Intravenous, Once, 1 dose, On 05/13/23 at 1845, Routine Given 05/13/2023 6:26 PM EDT 40 mg furosemide (Lasix) injection 40 mg 40 mg, Intravenous, Once, 1 dose, On 05/14/23 at 0900, Routine Given 05/14/2023 8:59 AM EDT 40 mg furosemide (Lasix) tablet 40 mg 40 mg, Oral, Daily, First dose on 05/14/23 at 1030, Until Discontinued, Routine Given 05/16/2023 8:42 AM EDT 40 mg Given 05/15/2023 8:01 AM EDT 40 mg Given 05/14/2023 11:03 AM EDT 40 mg HYDROmorphone (Dilaudid) injection 0.25 mg 0.25 mg, Intravenous, Every 3 hours PRN, Starting on Mon05/12/23 at 1451, Until Mon05/14/23 at 1025, Routine, mild - moderate pain Given 05/12/2023 9:18 PM EDT 0.25 mg insulin regular in sodium chloride 0.9 % 1 UNIT/ML infusion (Standard Insulin Protocol) 0.5-30 Units/hr (0.5-30 mL/hr), Intravenous, Titrated, Starting on Mon05/12/23 at 1515, Until Mon05/13/23 at 1110, Routine, Recovery(Phase II-Outpatient)/On Unit(Inpatient) Rate/Dose Verify 05/13/2023 2:00 AM EDT 1 Units/hr 1 mL/hr Rate/Dose Verify 05/13/2023 12:00 AM EDT 1 Units/hr 1 mL/h r Rate/Dose Verify 05/12/2023 11:00 PM EDT 1 Units/hr 1 mL/h r lactated Ringer's infusion 20 mL/hr, Intravenous, Continuous, Starting on Mon05/12/23 at 0630, Until Mon05/12/23 at 1524, Routine New Bag 05/12/2023 6:43 AM EDT 20 mL/h r 20 mL/hr lidocaine (Lidoderm) 5 % patch 1 patch 1 patch, Apply externally, Daily PRN, Starting on Mon05/12/23 at 1536, Until Mon05/16/23 at 1413, Administer over 12 Hours, Routine, mild pain methocarbamol (Robaxin) tablet 500 mg 500 mg, Oral, 4 times daily PRN, Starting on Mon05/12/23 at 1536, Until Mon05/16/23 at 1413, Routine, muscle spasms metoprolol tartrate (Lopressor) split tablet 12.5 mg 12.5 mg, Oral, 2 times daily, First dose on Mon05/13/23 at 1100, Until Discontinued, Routine Given 05/14/2023 8:24 AM EDT 12.5 mg Given 05/13/2023 8:43 PM EDT 12.5 mg Given 05/13/2023 12:00 PM EDT 12.5 mg metoprolol tartrate (Lopressor) tablet 25 mg 25 mg, Oral, 2 times daily, First dose (after last modification) on Mon05/14/23 at 2100, Until Discontinued, Routine Given 05/16/2023 8:42 AM EDT 25 mg Given 05/15/2023 8:17 PM EDT 25 mg Given 05/15/2023 8:01 AM EDT 25 mg mupirocin (Bactroban) 2 % ointment Each Nostril, 2 times daily, 8 doses, First dose on Mon05/12/23 at 2100, Last dose on Mon05/16/23 at 0900, Routine Given 05/16/2023 8:42 AM EDT Given 05/15/2023 8:20 PM EDT Given 05/15/2023 8:02 AM EDT nitroglycerin (Tridil) 50 mg in 250 mL D5W (200 mcg/mL) infusion 0.2-2 mcg/kg/min ? 74.8 kg (4.488-44.88 mL/hr, rounded to 4.49-44.88 mL/hr), 200 mcg/mL, Intravenous, Titrated, Starting on Mon05/12/23 at 1530, Until Mon05/13/23 at 0909, Routine Rate/Dose Verify 05/12/2023 9:00 PM EDT 0.3 mcg/kg/min 6.73 mL/hr Rate/Dose Change 05/12/2023 8:00 PM EDT 0.3 mcg/kg/min 6.7 3 mL/hr Rate/Dose Verify 05/12/2023 7:00 PM EDT 0.4 mcg/kg/min 8.9 8 mL/hr ondansetron (Zofran) injection 4 mg 4 mg, Intravenous, Every 6 hours PRN, Starting on Mon05/12/23 at 1448, Until Mon05/13/23 at 1039, Routine, Recovery(Phase II-Outpatient)/On Unit(Inpatient), nausea, vomiting Given 05/12/2023 9:18 PM EDT 4 mg ondansetron (Zofran) injection 4 mg 4 mg, Intravenous, Every 6 hours PRN, Starting on Mon05/13/23 at 1215, Until Mon05/16/23 at 1413, Routine, Recovery(Phase II-Outpatient)/On Unit(Inpatient), nausea, vomiting Given 05/14/2023 7:45 AM EDT 4 mg Given 05/13/2023 12:46 PM EDT 4 mg oxyCODONE (Roxicodone) immediate release tablet 5 mg 5 mg, Oral, Every 4 hours PRN, Starting on Mon05/12/23 at 1451, Until Mon05/16/23 at 1413, Routine, moderate pain Given 05/13/2023 4:11 AM EDT 5 mg pantoprazole (Protonix) injection 40 mg 40 mg, Intravenous, Daily, First dose on Mon05/13/23 at 0900, Until Discontinued, Routine, Recovery(Phase II-Outpatient)/On Unit(Inpatient) Given 05/13/2023 10:09 AM EDT 40 mg phosphorus (K Phos Neutral) tablet 1 tablet 1 tablet, Oral, Every 12 hours, 2 doses, First dose on Mon05/14/23 at 0730, Last dose on Mon05/14/23 at 1930, Routine Given 05/14/2023 6:46 PM EDT 1 tablet Given 05/14/2023 7:45 AM EDT 1 tablet polyethylene glycol (Miralax) packet 17 g 17 g, Oral, Daily, First dose on Mon05/13/23 at 0900, Until Discontinued, Routine, Recovery(Phase II-Outpatient)/On Unit(Inpatient) Given 05/16/2023 8:43 AM EDT 17 g Given 05/15/2023 8:02 AM EDT 17 g Given 05/14/2023 8:24 AM EDT 17 g potassium chloride CR (Klor-Con) ER tablet 40 mEq 40 mEq, Oral, Once, 1 dose, On Mon05/14/23 at 1500, Routine Given 05/14/2023 4:36 PM EDT 40 mEq potassium chloride CR (Klor-Con) ER tablet 40 mEq 40 mEq, Oral, Once, 1 dose, On Mon05/15/23 at 0400, Routine Given 05/15/2023 3:49 AM EDT 40 mEq Povidone-Iodine 5 % swab solution 1 Swab Nasal, Daily, 5 doses, First dose on Mon05/12/23 at 1515, Last dose on Mon05/16/23 at 0900, Routine Given 05/16/2023 8:44 AM EDT 1 Swab Given 05/15/2023 8:02 AM EDT 1 Swab Given 05/14/2023 8:25 AM EDT 1 Swab senna (Senokot) tablet 17.2 mg 17.2 mg, Oral, Nightly, First dose on Mon05/12/23 at 2100, Until Discontinued, Routine, Recovery(Phase II-Outpatient)/On Unit(Inpatient) Given 05/13/2023 8:43 PM EDT 17.2 mg Sodium Phosphate-NaCl IVPB 15 mmol 15 mmol (rounded from 16.416 mmol = 0.24 mmol/kg ? 68.4 kg [place] weight), Intravenous, Once, 1 dose, On Mon05/12/23 at 1615, Routine Given 05/12/2023 4:31 PM EDT 15 mmol Tiotropium [place] Monohydrate (Spiriva Respimat) 2.5 MCG/ACT inhaler 2 puff 2 puff, Inhalation, Daily, First dose on Mon05/14/23 at 1715, Until Discontinued, STAT Given 05/16/2023 8:47 AM EDT 2 p uffs Given 05/15/2023 8:03 AM EDT 2 puffs Given 05/14/2023 5:31 PM EDT 2 puffs documented in this encounter Active and Recently Administered Medications Times are shown in EDT. Scheduled Medication Order 05/14/2023 05/15/2023 05/16/2023 acetaminophen (Tylenol) tablet 650 mg 650 mg, Oral, Every 6 hours scheduled, First dose on Mon05/12/23 at 1800, Until Discontinued, Routine 0059 (Given - Provider: Abigail Kaplan RN)0507 (Given - Provider: Abigail Kaplan RN)1208 (Given - Provider: Marianeal Taylor, NATASHA)1730 (Given - Provider: Marianela Taylor RN)2351 (Given - Provider: Larry Vann RN) 0538 (Given - Provider: Larry Vann, NATASHA)1125 (Given - Provider: Marianela Taylor, NATASHA)1703 (Given - Provider: Marianela Taylor RN) 0009 (Not Given - Provider: Tristan Paris RN - Reason: Patient/family refused)0649 (Not Given - Provider: Tristan Paris RN - Reason: Patient/family refused)1200 (Canceled Entry - Provider: Automatic Discharge Provider - Comment: Automatically canceled at discontinue of medication order) aspirin chewable tablet 81 mg 81 mg, Oral, Daily, First dose on Mon05/12/23 at 2200, Until Discontinued, Routine, Recovery(Phase II-Outpatient)/On Unit(Inpatient) 08 (Given - Provider: Marianela Taylor RN) 08 (Given - Provider: Marianela Taylor RN) 0842 (Given - Provider: Mario Souza) atorvastatin (Lipitor) tablet 80 mg 80 mg, Oral, Nightly, First dose on Mon05/12/23 at 2100, Until Discontinued, Routine, Recovery(Phase II-Outpatient)/On Unit(Inpatient) 2031 (Given - Provider: Larry Vann, NATASHA) 2016 (Given - Provider: Tristan Paris RN) bisacodyl (Dulcolax) suppository 10 mg 10 mg, Rectal, Daily, First dose on Mon05/14/23 at 0915, Until Discontinued, Routine 09 (Given - Provider: Marianela Taylor RN) 08 (Given - Provider: Marianela Taylor RN) 0843 (Not Given - Provider: Mario Souza - Reason: Order parameters not met) docusate sodium (Colace) capsule 100 mg 100 mg, Oral, 2 times daily, First dose on Mon05/12/23 at 2100, Until Discontinued, Routine, Recovery(Phase II-Outpatient)/On Unit(Inpatient) 08 (Given - Provider: Marianela Taylor RN)2032 (Given - Provider: Larry Vann, NATASHA) 08 (Given - Provider: Marianela Taylor RN)2019 (Not Given - Provider: Tristan Paris RN - Reason: Patient/family refused) 08 (Not Given - Provider: Mario Souza - Reason: Order parameters not met) enoxaparin (Lovenox) syringe 40 mg 40 mg, Subcutaneous, Daily, First dose on Mon05/13/23 at 0900, Until Discontinued, Routine 0824 (Given - Provider: Marianela Taylor RN) 08 (Given - Provider: Marianela Taylor RN) 0843 (Given - Provider: Mario Souza) furosemide (Lasix) injection 40 mg (COMPLETED) 40 mg, Intravenous, Once, 1 dose, On 05/14/23 at 0900, Routine 0859 (Given - Provider: Marianela Taylor RN) furosemide (Lasix) tablet 40 mg 40 mg, Oral, Daily, First dose on 05/14/23 at 1030, Until Discontinued, Routine 110 (Given - Provider: Marianela Taylor RN) 08 (Given - Provider: Marianela Taylor RN) 0842 (Given - Provider: Mario Souza) metoprolol tartrate (Lopressor) split tablet 12.5 mg (CANCELED) 12.5 mg, Oral, 2 times daily, First dose on 05/13/23 at 1100, Until Discontinued, Routine 08 (Given - Provider: Marianela Taylor RN) metoprolol tartrate (Lopressor) tablet 25 mg 25 mg, Oral, 2 times daily, First dose (after last modification) on 05/14/23 at 2100, Until Discontinued, Routine 2031 (Given - Provider: Larry Vann, NATASHA) 08 (Given - Provider: Marianela Taylor, NATASHA)2016 (Given - Provider: Tristan Paris, NATASHA) 0842 (Given - Provider: Mario Souza) mupirocin (Bactroban) 2 % ointment (COMPLETED) Each Nostril, 2 times daily, 8 doses, First dose on Mon05/12/23 at 2100, Last dose on Mon05/16/23 at 0900, Routine 0825 (Given - Provider: Marianela Taylor RN)2031 (Given - Provider: Larry Vann, NATASHA) 08 (Given - Provider: Marianela Taylor, NATASHA)2019 (Given - Provider: Tristan Paris, NATASHA) 0842 (Given - Provider: Mario Souza) phosphorus (K Phos Neutral) tablet 1 tablet (COMPLETED) 1 tablet, Oral, Every 12 hours, 2 doses, First dose on 05/14/23 at 0730, Last dose on 05/14/23 at 1930, Routine 0745 (Given - Provider: Marianela Taylor RN)1846 (Given - Provider: Marianela Taylor RN) polyethylene glycol (Miralax) packet 17 g 17 g, Oral, Daily, First dose on Mon05/13/23 at 0900, Until Discontinued, Routine, Recovery(Phase II-Outpatient)/On Unit(Inpatient) 0824 (Given - Provider: Marianela Taylor RN) 0802 (Given - Provider: Marianela Taylor RN) 0843 (Given - Provider: Mario Souza) potassium chloride CR (Klor-Con) ER tablet 40 mEq (COMPLETED) 40 mEq, Oral, Once, 1 dose, On Mon05/14/23 at 1500, Routine 1636 (Given - Provider: Marianela Taylor RN) potassium chloride CR (Klor-Con) ER tablet 40 mEq (COMPLETED) 40 mEq, Oral, Once, 1 dose, On Mon05/15/23 at 0400, Routine 0349 (Given - Provider: Larry Vann RN) Povidone-Iodine 5 % swab solution 1 Swab (COMPLETED) Nasal, Daily, 5 doses, First dose on Mon05/12/23 at 1515, Last dose on Mon05/16/23 at 0900, Routine 0825 (Given - Provider: Marianela Taylor RN) 0802 (Given - Provider: Marianela Taylor RN) 0844 (Given - Provider: Mario Souza) senna (Senokot) tablet 17.2 mg 17.2 mg, Oral, Nightly, First dose on Mon05/12/23 at 2100, Until Discontinued, Routine, Recovery(Phase II-Outpatient)/On Unit(Inpatient) 2036 (Not Given - Provider: Larry Vann RN - Reason: Patient/family refused) 2019 (Not Given - Provider: Tristan Paris RN - Reason: Patient/family refused) Tiotropium [place] Monohydrate (Spiriva Respimat) 2.5 MCG/ACT inhaler 2 puff 2 puff, Inhalation, Daily, First dose on Mon05/14/23 at 1715, Until Discontinued, STAT 1731 (Given - Provider: Marianela Taylor RN) 0803 (Given - Provider: Marianela Taylor RN) 0847 (Given - Provider: Mario Souza) PRN Medication Order 05/14/2023 05/15/2023 05/16/2023 albuterol 108 (90 Base) MCG/ACT inhaler 2 puff 2 puff, Inhalation, 4 times daily PRN, Starting on 05/13/23 at 1150, Until Mon05/16/23 at 1413, Routine, wheezing lidocaine (Lidoderm) 5 % patch 1 patch 1 patch, Apply externally, Daily PRN, Starting on Mon05/12/23 at 1536, Until Mon05/16/23 at 1413, Administer over 12 Hours, Routine, mild pain methocarbamol (Robaxin) tablet 500 mg 500 mg, Oral, 4 times daily PRN, Starting on Mon05/12/23 at 1536, Until Mon05/16/23 at 1413, Routine, muscle spasms ondansetron (Zofran) injection 4 mg 4 mg, Intravenous, Every 6 hours PRN, Starting on Mon05/13/23 at 1215, Until Mon05/16/23 at 1413, Routine, Recovery(Phase II-Outpatient)/On Unit(Inpatient), nausea, vomiting 0745 (Given - Provider: Marianela Taylor RN) oxyCODONE (Roxicodone) immediate release tablet 5 mg(Linked Group 1) 5 mg, Oral, Every 4 hours PRN, Starting on Mon05/12/23 at 1451, Until Mon05/16/23 at 1413, Routine, moderate pain Linked Groups Order Group 1: oxyCODONE (Roxicodone) immediate release tablet 5 mgJump to med 5 mg, Oral, Every 4 hours PRN, Starting on Mon05/12/23 at 1451, Until Mon05/16/23 at 1413, Routine, moderate pain Or oxyCODONE (Roxicodone) immediate release tablet 10 mg (CANCELED) 10 mg, Oral, Every 4 hours PRN, Starting on Mon05/12/23 at 1451, Until Mon05/14/23 at 1025, Routine, severe pain documented in this encounter Additional Health Concerns Assessment Noted Time A fall risk assessment has been complete d for the patient 05/04/2023 9:45 AM EDT A Body Mass Index follow-up plan has been documented for the patient 05/16/2023 10:45 AM EDT documented as of this encounter Care Teams Women Specialist Relationship Specialty Start Date End Date Carl Tate DO [address] [place] [id number] PCP - General 04/17/23 Leandro Seaman MD [address] [place] [address] [address] [place] [address] Consulting Physician Radiation Oncology 07/30/21 Carl Gaffney MD [address] [place] [address] Referring Physician 05/12/23 documented as of this encounter
--- OUTSIDE RECORDS SUMMARY | 2024-01-11 09:10 | XMS_ITS | Encounter Summary ---
Author Organization Healthcare Address [address] [id number] Care Team Providers Care Page Makeup System Operator Name Role Phone Leandro Seaman MD Unavailable [phone] Carl Tate DO Primary Care Provider [phone] Carl Gaffney MD Unavailable [phone] Encounter Details Date Type Department Care Team (Latest Contact Info) Description 05/14/2023 Travel Social History Tobacco Use Types Packs/Day [...] Description 01/15/2024 10:00 AM EST Ancillary Procedure [facility] [address] [place] [address] 01/15/2024 11:00 AM EST Consult [facility] Medicine Specialties [address] [place] [address] Nael, Ida L, PA [address] [place] [address] 06/19/2024 11:00 AM EDT Appointment [facility] Radiation [address] [facility] [id number] [place] [address] Leandro Seaman MD [address] [place] [phone] documented as of this encounter Visit Diagnoses Not on filedocumented in this encounter Additional Health Concerns Assessment Noted Time A fall risk assessment has been complete d for the patient 05/04/2023 9:45 AM EDT A Body Mass Index follow-up plan has been documented for the patient 05/16/2023 10:45 AM EDT documented as of this encounter Care Teams Page Makeup System Operator Relationship Specialty Start Date End Date Carl Tate DO [address] [place] [address] [id number] PCP - General 04/17/23 Leandor Seaman MD [address] [place] [phone] Consulting Physician Radiation Oncology 07/30/21 Carl Gaffney MD [address] [place] [id number] Referring Physician 05/12/23 documented as of this encounter
--- OUTSIDE RECORDS SUMMARY | 2024-01-11 09:10 | XMS_ITS | Encounter Summary ---
Author Organization Healthcare Address [address] [id number] Care Team Providers Care Ironmolder Name Role Phone Leandro Seaman MD Unavailable [phone] Carl Tate DO Primary Care Provider [phone] Carl Gaffney MD Unavailable [phone] Encounter Details Date Type Department Care Team (Latest Contact Info) Description 05/15/2023 Travel Social History Tobacco Use Types Packs/Day [...] Description 01/15/2024 10:00 AM EST Ancillary Procedure [facility] [address] [place] [address] 01/15/2024 11:00 AM EST Consult [facility] Medicine Specialties [address] [place] [address] Nael, Ida L, PA [address] [place] [address] 06/19/2024 11:00 AM EDT Appointment [facility] Radiation [address] [facility] [id number] [place] [address] Leandro Seaman MD [address] [place] [phone] documented as of this encounter Visit Diagnoses Not on filedocumented in this encounter Additional Health Concerns Assessment Noted Time A fall risk assessment has been complete d for the patient 05/04/2023 9:45 AM EDT A Body Mass Index follow-up plan has been documented for the patient 05/16/2023 10:45 AM EDT documented as of this encounter Care Teams Ironmolder Relationship Specialty Start Date End Date Carl Tate DO [address] [place] [address] [id number] PCP - General 04/17/23 Leandro Seaman MD [address] [place] [phone] Consulting Physician Radiation Oncology 07/30/21 Carl Gaffney MD [address] [place] [id number] Referring Physician 05/12/23 documented as of this encounter
--- OUTSIDE RECORDS SUMMARY | 2024-01-11 09:10 | XMS_ITS | Encounter Summary ---
Author Organization [facility] Address [address] [place] [address] Care Team Providers Care Church Warden Name Role Phone Leandro Seaman MD Unavailable [phone] Carl Tate DO Primary Care Provider [phone] Carl Gaffney MD Unavailable [phone] Encounter Details Date Type Department Care Team (Late st Contact Info) Description 05/15/2023 Lab Requisition [facility] [address] [place] [address] Chad Campo MD [address] [facility] [address] [place] [phone] Encounter for general adult medical examination without abnormal findings Social History Tobacco Use Types Packs/Day Years [...] Description 01/15/2024 10:00 AM EST Ancillary Procedure [facility] [address] [place] [address] 01/15/2024 11:00 AM EST Consult [facility] Medicine Specialties [address] [place] [address] Ida Nayak PA [address] [place] [address] 06/19/2024 11:00 AM EDT Appointment [facility] Radiation [id number] [place] [phone] Leandro Seaman MD [address] [place] [address] documented as of this encounter Procedures Procedure Name Priority Date/Time Associated Diagnosis Comments MULTI DRUG RESISTANCE TEST Routine 05/15/2023 7:57 AM EDT Encounter for general adult medical examination without abnormal findings documented in this encounter Results * Multi Drug Resistance Test (05/15/2023 7:57 AM EDT) Culture No growth at day 1 05/16/2023 5:09 AM EDT [facility] Swab (Nares and Jessica Rectal) 05/15/2023 7:57 AM EDT 05/15/2023 8:05 AM EDT us Chad Campo MD LAB MICROBIOLOGY - GEN ERAL ORDERABLES Final Result [facility] [address] [place] [address] documented in this encounter Visit Diagnoses Diagnosis Encounter for general adult medical examination without abnormal findings documented in this encounter Additional Health Concerns Assessment Noted Time A fall risk assessment has been complete d for the patient 05/04/2023 9:45 AM EDT A Body Mass Index follow-up plan has been documented for the patient 05/16/2023 10:45 AM EDT documented as of this encounter Care Teams Church Warden Relationship Specialty Start Date End Date Carl Tate DO [address] [place] [address] PCP - General 04/17/23 Leandro Seaman MD [address] [place] [phone] Consulting Physician Radiation Oncology 07/30/21 Carl Gaffney MD [address] [place] [address] Referring Physician 05/12/23 documented as of this encounter
--- OUTSIDE RECORDS SUMMARY | 2024-01-11 09:11 | XMS_ITS | Encounter Summary ---
Author Organization Healthcare Address [address] [id number] Care Team Providers Care Contracting Specialist Name Role Phone Leandro Seaman MD Unavailable [phone] Carl Tate DO Primary Care Provider [phone] Carl Gaffney MD Unavailable [phone] Encounter Details Date Type Department Care Team (Latest Contact Info) Description 05/13/2023 Travel Social History Tobacco Use Types Packs/Day [...] Description 01/15/2024 10:00 AM EST Ancillary Procedure [facility] [address] [place] [address] 01/15/2024 11:00 AM EST Consult [facility] Medicine Specialties [address] [place] [address] Nael, Ida L, PA [address] [place] [address] 06/19/2024 11:00 AM EDT Appointment [facility] Radiation [address] [facility] [id number] [place] [address] Leandro Seaman MD [address] [place] [place] [phone] documented as of this encounter Visit Diagnoses Not on filedocumented in this encounter Additional Health Concerns Assessment Noted Time A fall risk assessment has been complete d for the patient 05/04/2023 9:45 AM EDT A Body Mass Index follow-up plan has been documented for the patient 05/16/2023 10:45 AM EDT documented as of this encounter Care Teams Contracting Specialist Relationship Specialty Start Date End Date Carl Tate DO [address] [place] [address] [phone] PCP - General 04/17/23 Leandro Seaman MD [address] [place] [phone] Consulting Physician Radiation Oncology 07/30/21 Carl Gaffney MD [address] [place] [address] Referring Physician 05/12/23 documented as of this encounter
--- OUTSIDE RECORDS SUMMARY | 2024-01-11 09:11 | XMS_ITS | Encounter Summary ---
Author Organization Healthcare Address [address] [place] [address] Care Team Providers Care Securities Supervisor Name Role Phone Leandro Seaman MD Unavailable [phone] Carl Tate DO Primary Care Provider Carl Gaffney MD Unavailable [phone] Reason for Visit * Auth/Cert (Routine) Specialty Diagnoses / Procedures Referred By Shannan schmitt Referred To Contact Diagnoses CAD (coronary artery disease) CAD Procedures [place] CABG, ARTERIAL, SINGLE CABG Sampson Mckeon MD [address] [address] Phone: tel: fax: [facility] [address] [place] [address] Phone: tel: Referral ID Status Reason Start Date Expiration Date Visits Re quested Visits Authorized [id number] 1 1 Encounter Details Date Type Department Care Team (Late st Contact Info) Description 05/12/2023 7:07 AM EDT Anesthesia Event [facility] [address] [place] [address] Sandeep Hunter MD [address] [place] [address] Phoebe Wasserman MD [address] [place] [address] Anesthesia Record Procedure Summary Procedure Name Responsible Anesthesiologist Anesthesia Start Time Anesthesia Stop Time CABG Sandeep Hunter MD 05/12/23 0707 05/12/23 1449 Events Date Time Event Comment 05/12/2023 0645 Perfusion Start In room ted y to set up CPB circuit 0706 In Room 0707 An Start 0707 An Start Data 0726 An Induction The patient was reevaluated immediately before moderate or deep sedation use and before anesthesia induction. 0728 An Intubation 0750 Anesthesia Ready 0755 David Normal PA press ure; normal SVO2. No request or indication for NISHA. 0824 Autotransfusion Start 0829 ACT Performed Baseline ACT 9 8 0835 Proc Start 0835 Sternotomy 0908 David First ABG has H ct that is discrepant with outpatietn results. A CBC is sent in case the GEM 5000 is inaccurate 1032 Labs >1005s 1032 ACT Performed 1041 Art Line Pulse/Test 1044 An CV Bypass init 1052 AN Active Cool 1057 Clamp On 1102 CO2 Field Flooding Start 1103 David Remarkable in c rease in MAP after starting CPB, attributed to 1 mL of phenylephrine. ISO 4% given, followed by NTG via central line, with resolution of hypertension. BIS fell to 0 during high dose ISO The ISO vaporizer was turned to 0 at PLATFORM ENGINEER temp 29 degrees. 1105 ACT Performed 976sec 1105 Labs 1106 David Gas sampling li ne to oxygenator has been connected. 1130 Labs 1130 ACT Performed >1005sec 1138 AN Active Warm 32c 1149 David Fully rewarm 1200 ACT Performed 916s 1200 Labs 1230 Labs 1230 ACT Performed 611s 1232 Clamp Off 1247 David P4 AORTIC ROOT PRESSURE 1256 An CV Bypass Ended 1315 ACT Performed 96sec 1315 Labs 1403 Autotransfusion Stop 1403 Perfusion Stop 1413 Proc Fin 1433 Out of Room 1448 Handoff to Receiving I compl eted my handoff to the receiving clinician during which we: 1. Identified the patient 2. Identified the responsible provider 3. Reviewed the pertinent medical history 4. Discussed the surgical course 5. Reviewed intra-op anesthesia management and issues during anesthesia 6. Set expectations for post-procedure period 7. Allowed opportunity for questions and acknowledgement of understanding. 1449 An Stop 1449 an stop data Meds Name Total glycopyrrolate (Robinul) injection 0.2 m g/mL 0.2 mg fentaNYL (Sublimaze) injection 50 mcg/mL 3,100 mcg dexamethasone (Decadron) injection 4 mg/ mL 8 mg ePHEDrine injection prefilled syringe 5 mg/mL 25 mg rocuronium (ZeMuron) injection 10 mg/mL 130 mg midazolam (Versed) injection 1 mg/mL 7 m g protamine injection 195 mg cardioplegia Daja-Tana solution 2, 500 mL lidocaine (cardiac) 2% injection 100 mg/ 5 mL (prefilled syringe) 100 mg Prime for CPB (OSM) 850 mL ceFAZolin (Ancef) vial 1 g 3 g nitroglycerin (Tridil) bolus 550 mcg nitroglycerin (Tridil) infusion 200 mcg/ mL 0.42 mg tranexamic acid (Cyklokapron ) 1,000 mg in sodium chloride 0.9 % 100 mL (10 mg/mL) infusion 256.81 mg tranexamic acid (Cyklokapron) injection 100 mg/mL 1,122 mg insulin regular injection in 0.9% NS 1 u nit/mL 31.38 Units heparin injection 1,000 units/mL 30,000 Units furosemide (Lasix) injection 10 mg/mL 5 mg droperidol (Inapsine) injection 0.625 mg sodium chloride 0.9 % infusion 700 mL sodium chloride 0.9 % infusion 0 mL * Agents Name O2 N2O Air Sevoflurane Isoflurane Desflurane Inspired Desflurane Inspired Isoflurane Inspired Sevoflurane N2O Inspired N2O * Blood No blood administrations on file. Lines, Drains, and Airways Type Details Placement Removal Wound 05/12/23; 0835; Inci sharonda; Sternum; Upper 05/12/23 0835 by Ethan Hennessy RN Wound 05/12/23; 0835; Inci sharonda; Pretibial; Left, Proximal 05/12/23 0835 by Ethan Hennessy RN Wound 05/12/23; 0835; Inci sharonda; Pretibial; Proximal, Right 05/12/23 0835 by Ethan Hennessy RN Wound 05/12/23; 0835; N; Incision; Leg; Anterior, Distal, Right, Upper 05/12/23 0835 by Ethan Hennessy RN Pacer Wires 05/12/23; 05/12/23; Epicardial; 05/15/23; 09; Other (Comment) (Removed by Resident); No complications, Pacer wires intact 05/12/23 0000 by Marianela Taylor RN 05/15/23 0900 by Marianela Taylor RN Peripheral IV Placement Date: 06/29; Placement Time: 0630; Catheter Size: 18 G; Orientation: Posterior, Right; Location: Hand; Site Prep: Chlorhexidine ; Local Anesth: Gunlock; Technique: Anatomical landmarks; Inserted by: avery messer; Insertion Attempts: 1; Patient Tolerance: Tolerated well; Removal Date: 05/16/23; Removal Time: 1000 05/12/23 0630 by Avery Messer RN 05/16/23 1000 by Mario Souza ETT Placement Date: 06/29; Placement Time: 727 (created via procedure documentation); Mask Ventilation: 0; Technique: Direct laryngoscopy; Type: ETT - single; Single Lumen Tube Size: 8.5 mm; Cuffed: Yes; Laryngoscope: Nikky; Blade Size: 3; Location: Oral; Grade View: Grade I; Insertion Attempts: 1; Placement Verification: Auscultation, Capnometry; Airway Comments: Atraumatic. No change to dentition. ; Placed by: Anesthesiologist; Removal Date: 05/12/23; Removal Time: 210905/12/23 07 by Phoebe Wasserman MD 05/12/232109 by Jackie Donohue Urethral Catheter Placement Date: 06/29; Placement Time: 732; Inserted by: Bri Hennessy RN; Type: Non-latex, Temperature probe; Size: 16 Fr.; Balloon Size: 10 mL; Urine Returned: Yes; Removal Date: 05/14/23; Removal Time: 1349; Removal Reason: Per order 05/12/23 0733 by Ethan Hennessy RN 05/14/23 1349 by Marianela Taylor RN CVC Double Lumen Placement Date: 06/29; Placement Time: 08 (created via procedure documentation); Hand Hygiene: Yes; Site Prep: Chlorhexidine ; Site Prep Agent Dried: Yes; Sterile Barrier Used: Yes; Size: 9 Fr; Description: I was present for CVC and PAC. ALEJANDRA Hunter MD [facility]; Line Length(cm): 11.5; Orientation: Right; Location: Internal jugular; Placement Verification: Ultrasound; Removal Date: 05/14/23; Removal Time: 1335; Removal Reason: Per order 05/12/23 0800 by Phoebe Wasserman MD 05/14/23 1335 by Marianela Taylor RN Arterial Line Placement Date: 06/29; Placement Time: 0833 (created via procedure documentation); Size: 20 G; Orientation: Left; Location: Radial; Inserted by: Resident; Securement: Sutured; Removal Date: 05/14/23; Removal Time: 1153; Removal Reason: Per order 05/12/23 0833 by Phoebe Wasserman MD 05/14/23 1153 by Marianela Taylor RN Introducer Placement Date: 06/29; Placement Time: 0834 (created via procedure documentation); Hand Hygiene: Yes; Location: Internal jugular; Orientation: Right; Placement Verified by: Pressure tracing changes, NISHA; Removal Date: 05/13/23; Removal Time: 1015 05/12/23 0834 by Phoebe Wasserman MD 05/13/23 1015 by Mere Han RN Y Chest Tube 1 and 2 05/12/23; 1404; 1; Left; Pleural; 28 Fr.; 2; Right; Pleural; 28 Fr. 05/12/23 1404 by Ethan Hennessy RN 05/14/23 1030 by Marianela Taylor RN Chest Tube Placement Date: 06/29; Placement Time: 1404; Location: Pleural, Mediastinal; Size: 36 Fr; Drainage System: Gary/nonsuction water seal drainage; Removal Date: 05/14/23; Removal Time: 1030; Removal Reason: Other (Comment) (per CVT) 05/12/23 1404 by Ethan Hennessy RN 05/14/23 1030 by Marianela Taylor RN documented in this encounter Social History Tobacco Use Types Packs/Day Years [...] as of this encounter Miscellaneous Notes * Anesthesia Postprocedure Evaluation - Phoebe Wasserman MD - 05/12/2023 2:49 PM EDT Patient: Carlo Noriega Anesthesia Type: general Vitals Value Taken Time BP 128/64 05/12/23 1449 Temp 35.9 05/12/23 1449 Pulse 69 05/12/23 1449 Resp 24 05/12/23 1449 SpO2 100 05/12/23 1449 Anesthesia Post Evaluation Patient location during evaluation: ICU Patient participation: complete - patient cannot participate Level of consciousness: sedated Airway patency: endotracheal device Cardiovascular status: acceptable and hemodynamically stable Respiratory status: ETT, intubated and ventilator Hydration status: acceptable No notable events documented. Cosigned by Sandeep Hunter MD at 05/12/2023 3:17 PM EDT Associated attestation - Sandeep Hunter MD - 05/12/2023 3:17 PM EDT I agree with the findings and care plan documented in the postprocedure evaluation note. * Anesthesia Procedure Notes - Phoebe Wasserman MD - 05/12/2023 9:48 AM EDT Associated Order(s): Airway Airway Date/Time: 05/12/2023 7:28 AM Urgency: elective Airway not difficult General Information and Staff Patient location during procedure: OR Anesthesiologist: Sandeep Hunter MD Resident: Phoebe Wasserman MD Performed: Anesthesiologist Indications and Patient Condition Indications for airway management: anesthesia Spontaneous Ventilation: absent Preoxygenated: yes Patient position: sniffing Mask difficulty assessment: 0 - not attempted Final Airway Details Final airway type: endotracheal airway Successful airway: ETT Cuffed: yes Successful intubation technique: direct laryngoscopy Endotracheal tube insertion site: oral Blade: Nikky Blade size: #3 ETT size (mm): 8.5 Cormack-Lehane Classification: grade I - full view of glottis Placement verified by: chest auscultation and capnometry Measured from: teeth Number of attempts at approach: 1 Additional Comments Atraumatic. No change to dentition. Cosigned by Sandeep Hunter MD at 05/12/2023 11:16 AM EDT Associated attestation - Sandeep Hunter MD - 05/12/2023 11:16 AM EDT I was present during all critical and bran portions of the procedure(s) and immediately available [facility] the entire duration. See resident note for details. * Anesthesia Procedure Notes - Sandeep Hunter MD - 05/12/2023 8:33 AM EDT Associated Order(s): Central Venous Line Central Venous Line: Date/Time: 05/12/2023 8:00 AM A central venous line was placed in the OR for the following indication(s): CVP monitoring. Sterility preparation included the following: provider hand hygiene performed prior to central venous catheter insertion, all 5 sterile barriers used (gloves, gown, cap, mask, large sterile drape) during central venous catheter insertion, antiseptic used during central venous catheter insertion andskin prep agent completely dried prior to procedure. The patient was placed in Trendelenburg position. Right internal jugular vein was prepped. The site was prepped with Chlorhexidine. A 9 Fr (size), 11.5 (length), introducer double lumen was placed. This catheter was an oximetric catheter. During the procedure, the following specific steps were taken: target vein identified, needle advanced into vein and blood aspirated and guidewire advanced into vein. Seldinger technique used Procedure performed using ultrasound guidance Sterile gel and probe cover used in ultrasound-guided central venous catheter insertion. Intravenous verification was obtained by ultrasound. Post insertion care included: all ports aspirated, all ports flushed easily, guidewire removed intact, Biopatch applied, line sutured in place and dressing applied. During the procedure the patient experienced: patient tolerated procedure well with no complications. PA Catheter Placed A oximetric, 7.5 (size) Pulmonary Artery Catheter (PAC) was placed through the Introducer CVL in the right internal jugular vein. The PAC placement was confirmed by pressure tracing changes. The patient experienced the following events during the procedure: patient tolerated procedure wellwith no complications. Additional notes: I was present for CVC and PAC. ALEJANDRA Hunter MD FRCPC Staffing Performed: Resident Anesthesiologist: Sandeep Hunter MD Resident: Phoebe Wasserman MD * Anesthesia Procedure Notes - Phoebe Wasserman MD - 05/12/2023 8:33 AM EDT Associated Order(s): Arterial Line Arterial Line: An arterial line was placed. Procedure performed using ultrasound guidance in the OR for the following indication(s): continuousblood pressure monitoring and blood sampling needed. A 20 gauge (size), 1 and 3/4 inch (length), Arrow (type) catheter was placed into the Left radial artery and secured by suture. Seldinger technique used Staffing Performed: Resident Anesthesiologist: Sandeep Hunter MD Resident: Phoebe Wasserman MD Cosigned by Sandeep Hunter MD at 05/12/2023 11:16 AM EDT Associated attestation - Sandeep Hunter MD - 05/12/2023 11:16 AM EDT I was present during all critical and bran portions of the procedure(s) and immediately available [facility] the entire duration. See resident note for details. * Anesthesia Preprocedure Evaluation - Sandeep Hunter MD - 05/11/2023 4:09 PM EDT Images from the original note were not included. JEAN Noriega is a 77 y.o. male who presents with Pre-op Diagnosis * CAD (coronary artery disease) [I25.10] now scheduled for CABG (N/A) on 05/12/[address] Mckeon. Vitals: 05/12/23 0643 BP: (!) 140/72 Pulse: Resp: Temp: SpO2: Abnormal pulmonary function studies: FEF 25-75% is 44% of predicted. NPO solids: 1640 05/11/23: Mac and cheese, green beans, meatloaf NPO liquids: 0600 05/12/23: sip of water with tylenol Past Medical History: Diagnosis Date CAD (coronary artery disease) 05/03/2023 Conversions - Other Bloating Conversions - Other Diarrhea (Symptom) HLD (hyperlipidemia) 05/03/2023 Hypertension 06/19/2014 Lung cancer (CMS/HCC) radiation tx 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) 07/30/2020 Osteoporosis 05/03/2023 Family History Problem Relation Name Age of Onset Heart disease Mother Diabetes Mother Hypertension Mother Lung cancer Brother Family history of lung cancer Throat cancer Brother Family history of throat cancer Anesthesia problems Neg Hx Malig Hyperthermia Neg Hx Social History Tobacco Use Smoking status: Former Packs/day: 1.00 Years: 43.00 Additional pack years: 0.00 Total pack years: 43.00 Types: Cigarettes Start date: 1960 Quit date: 2003 Years since quittin.2 Smokeless tobacco: Never Vaping Use Vaping Use: Never used Substance Use Topics Alcohol use: Yes Comment: beer once a week Drug use: Never SURGICAL HISTORY: Past Surgical History: Procedure Laterality Date CARDIAC CATHETERIZATION CHOLECYSTECTOMY N/A Cholecystectomy from [facility] CORONARY STENT PLACEMENT 2021 PTCA with brachy therapy Cx KNEE SURGERY N/A Knee Surgery from [facility] OTHER SURGICAL HISTORY N/A Rt femoral stent > 20 years ago RADIATION THERAPY Lt lung cancer 2014 and 2021 WRIST FRACTURE SURGERY Left pins No Known Allergies MEDICATIONS: Current Facility-Administered Medications: lactated Ringer's Leg Vein Solution AND nitroglycerin 100 mcg/mL - leg vein solution nitroglycerin 100 mcg/mL - leg vein solution papaverine in NS sodium chloride thrombin (recombinant) vancomycin Facility-Administered Medications Ordered in Other Encounters: ceFAZolin ePHEDrine Sulfate fentaNYL glycopyrrolate midazolam nitroglycerin nitroglycerin in D5W rocuronium sodium chloride CT surgery consult: Reason for visit / Chief Complaint: Coronary artery disease History of present illness: Carlo Noriega is a 77 y.o. male referred to us in consultation by Dr. Gaffney in regards tocoronary artery disease. Mr. Noriega has a past medical history significant for coronary artery disease status post stents (0725-1661, LAD, circumflex and RCA) and left upper [...] referred to our clinic for surgical evaluation. Cardiac Cath Results: Left main: widely patent [...] the proximal portion,focal distal 70% stenosis. Impression: Carlo Noriega is a 77 y.o. male referred to us in consultation by Dr. Gaffney in regards to coronary artery disease. Mr. Noriega has a past medical history significant for coronary artery disease status post stents (5508-1228, LAD, circumflex and RCA) and left upper lobe lung cancer (status post radiation treatment (2014 and 2021), and history of tobacco use (40+ years, quitein 2003). We discussed surgical revascularization. Risks of procedure [...] to do his bypasses. He understands this. ROS Anesthesia: Date of last anesthetic: ~ 10 years ago history of previous anesthesia. Does not have a history of anesthetic complications and obstructivesleep apnea. Cardiovascular: CAD, hyperlipidemia and PVD. Does not have atrial fibrillation, CHF, dysrhythmias or pacemaker. hypertension: is poorly controlled. Exercise tolerance is 1 flight of stairs. Does not have chest pain. Respiratory: Does not have home oxygen. no asthma: COPD: breathing at baseline.Has not had an upper respiratory infection in last 30 days. Has not had pneumonia in the last 30 days or COVID in the last 30 days. Respiratory ROS additional comments: CT Image 04/19/2023 FINDINGS: Mediastinum and Pleura: No mediastinal or [...] mm nodule. Additional small scattered pulmonary nodules. Neurological: no seizures: Did not have a cerebrovascular accident. Gastrointestinal: Does not have GERD.Does not have cirrhosis. Genitourinary: Does not have chronic renal disease. Hematological/Lymphatic: no hemophilia.History of no DVT. History of no pulmonary embolism. Not in a hypercoagulable state. history of chemotherapy (2015) without cardiopulmonary complications. history of radiation (2014) without cardiopulmonary complications. Does not have HIV, MRSA or tuberculosis. Endocrine/Metabolic: does not have diabetes mellitus. Does not have thyroid disorder. Imagin12/28/21 OSH EKG - Sinus rhythm. Nonspecific intraventricular conduction delay PFTs per surgeon's note - T.19 Cardiac Cath Results: Left main: widely [...] in the proximal portion,focal distal 70% stenosis. Visit Vitals BP (!) 140/72 Comment: right Pulse 64 Temp 36.8 ??C (98.2 ??F) (Oral) Resp 16 Wt 74.8 kg (165 lb) SpO2 100% BMI 25.09 kg/m?? Smoking Status Former BSA 1.89 m?? Lab Results Component Value Date WBC 8.62 05/04/2023 HGB 13.1 (L) 05/04/2023 HCT 44.4 05/04/2023 MCV 93 05/04/2023 PLT 242 05/04/2023 Lab Results Component Value Date GLUCOSE 102 (H) 05/12/2023 BUN 14 05/12/2023 CREATININE 1.12 05/12/2023 BCR 13 05/12/2023 NA 139 05/12/2023 K 4.2 05/12/2023 CL 107 05/12/2023 CO2 22 05/12/2023 CA 9.9 11/04/2015 ALBUMIN 4.1 05/04/2023 ALKPHOS 118 (H) 05/04/2023 BILITOT 0.5 05/04/2023 Lab Results Component Value Date HGBA1C 4.9 05/04/2023 Lab Results Component Value Date INR 1.0 05/04/2023 05/12/2023 6:43 AM Vitals Systolic 140 Diastolic 72 Physical Exam Airway Mallampati: II Mouth opening: normal TM distance: >3 FB Neck ROM: full Cardiovascular Rhythm: regular Rate: normal Dental (+) upper dentures Pulmonary Breath sounds clear to auscultation Neurological - normal exam Skin - normal exam Musculoskeletal - normal exam Extremities -normal exam Anesthesia Plan ASA 4 Plan was reviewed with: resident and attending Anesthesia technique(s) discussed with the patient/family: general Comment: PLATFORM ENGINEER phone screen Anesthetic plan and risks discussed with patient. Use of blood products discussed with patient who consented to blood products. From CTS note - Discussed we will not use his left internal mammary secondary to radiation field. We will likely use right internal mammary and vein to do his bypasses Sandeep Hunter MD Additional Equipment Requests documented in this encounter Plan of Treatment Upcoming Encounters Date Type Department Care Team (Late st Contact Info) Description 01/15/2024 10:00 AM EST Ancillary Procedure [facility] [address] [place] [address] 01/15/2024 11:00 AM EST Consult [facility] [address] [place] [address] Ida Nayak PA [address] [place] [address] 06/19/2024 11:00 AM EDT Appointment [facility] [id number] [place] [id number] Leandro Seaman MD [id number] [place] [id number] documented as of this encounter Procedures Procedure Name Priority Date/Time Associated Diagnosis Comments ANESTHESIA ARTERIAL LINE PLACEMENT Routine 05/12/2023 8:33 AM EDT IL INSERT/PLACE FLOW DIRECT CATH Routine 05/12/2023 8:00 AM EDT ANESTHESIA ULTRASOUND GUIDED Routine 05/12/2023 8:00 AM EDT PB ANESTHESIA NON-TIMED PROCEDURE PLACEHOLDER Routine 05/12/2023 8:00 AM EDT IL AN CENTRAL LINE DOUBLE LUMEN Routine 05/12/2023 8:00 AM EDT PB ANESTHESIA PLACEHOLDER Routine 05/12/2023 7:28 AM EDT IL AN ELECTIVE ENDOTRACHEAL AIRWAY Routine 05/12/2023 7:28 AM EDT documented in this encounter Results * PB ANESTHESIA NON-TIMED PROCEDURE PLACEHOLDER (05/12/2023 8:33 AM EDT) Narrative Sandeep Hunter MD - 05/12/2023 8:33 AM EDT Phoebe Wasserman MD ? 05/12/2023 ??8:33 AM Arterial Line: An arterial line was placed. Procedure performed using ultrasound guidance in the OR for the following indication(s): continuous blood pressure monitoring and blood sampling needed. A 20 gauge (size), 1 and 3/4 inch (length), Arrow (type) catheter was placed into the Left radial artery and secured by suture. Seldinger technique used Staffing Performed: Resident Anesthesiologist: Sandeep Hunter MD Resident: Phoebe Wasserman MD Sandeep Hunter MD ANESTHESIA ORDERABLES Final Res ult * IL AN CENTRAL LINE DOUBLE LUMEN, PB ANESTHESIA NON-TIMED PROCEDURE PLACEHOLDER, ANESTHESIA ULTRASOUND GUIDED, IL INSERT/PLACE FLOW DIRECT CATH (05/12/2023 8:00 AM EDT) Sandeep Manzano MD - 05/12/2023 8:00 AM EDT Sandeep Hunter MD ? 05/12/2023 11:19 AM Central Venous Line: Date/Time: 05/12/2023 8:00 AM A central venous line was placed in the OR for the following indication(s): CVP monitoring. Sterility preparation included the following: provider hand hygiene performed prior to central venous catheter insertion, all 5 sterile barriers used (gloves, gown, cap, mask, large sterile drape) during central venous catheter insertion, antiseptic used during central venous catheter insertion and skin prep agent completely dried prior to procedure. The patient was placed in Trendelenburg position. Right internal jugular vein was prepped. The site was prepped with Chlorhexidine. A 9 Fr (size), 11.5 (length), introducer double lumen was placed. This catheter was an oximetric catheter. During the procedure, the following specific steps were taken: target vein identified, needle advanced into vein and blood aspirated and guidewire advanced into vein. Seldinger technique used Procedure performed using ultrasound guidance Sterile gel and probe cover used in ultrasound-guided central venous catheter insertion. Intravenous verification was obtained by ultrasound. Post insertion care included: all ports aspirated, all ports flushed easily, guidewire removed intact, Biopatch applied, line sutured in place and dressing applied. During the procedure the patient experienced: patient tolerated procedure well with no complications. PA Catheter Placed A oximetric, 7.5 (size) Pulmonary Artery Catheter (PAC) was placed through the Introducer CVL in the right internal jugular vein. The PAC placement was confirmed by pressure tracing changes. The patient experienced the following events during the procedure: patient tolerated procedure well with no complications. Additional notes: I ??was present for CVC and PAC. ALEJANDRA Hunter MD FRCP Staffing Performed: Resident Anesthesiologist: Sandeep Hunter MD Resident: Phoebe Wasserman MD Sandeep Hunter MD ANESTHESIA ORDERABLES Final Res ult * IL AN ELECTIVE ENDOTRACHEAL AIRWAY, PB ANESTHESIA PLACEHOLDER (05/12/2023 7:28 AM EDT) Narrative Sandeep Hunter MD - 05/12/2023 7:28 AM EDT Phoebe Wasserman MD ? 05/12/2023 ??9:48 AM Airway Date/Time: 05/12/2023 7:28 AM Urgency: elective Airway not difficult General Information and Staff Patient location during procedure: OR Anesthesiologist: Sandeep Hunter MD Resident: Phoebe Wasserman MD Performed: Anesthesiologist Indications and Patient Condition Indications for airway management: anesthesia Spontaneous Ventilation: absent Preoxygenated: yes Patient position: sniffing Mask difficulty assessment: 0 - not attempted Final Airway Details Final airway type: endotracheal airway Successful airway: ETT Cuffed: yes Successful intubation technique: direct laryngoscopy Endotracheal tube insertion site: oral Blade: Nikky Blade size: #3 ETT size (mm): 8.5 Cormack-Lehane Classification: grade I - full view of glottis Placement verified by: chest auscultation and capnometry Measured from: teeth Number of attempts at approach: 1 Additional Comments Atraumatic. No change to dentition. us Sandeep Hunter MD ANESTHESIA ORDERABLES Final Res ult documented in this encounter Visit Diagnoses Not on filedocumented in this encounter Administered Medications Inactive Administered Medications - up to 3 most recent administrations Medication Order MAR Action Action Date Dose Rate Site cardioplegia Daja-Tana solution Perfusion, Continuous PRN, Starting on Mon05/12/23 at 1102, Until Mon05/12/23 at 1449, Routine Bolus 05/12/2023 12:31 PM EDT 300 mL Bolus 05/12/2023 12:16 PM EDT 300 mL Bolus 05/12/2023 11:54 AM EDT 300 mL ceFAZolin (Ancef) injection Intravenous, As needed, Starting on Mon05/12/23 at 0824, Until Mon05/12/23 at 1449, Routine, Anesthesia Intraprocedure Given 05/12/2023 12:24 PM EDT 1 g Given 05/12/2023 8:24 AM EDT 2 g dexamethasone (Decadron) injection Intravenous, As needed, Starting on Mon05/12/23 at 0916, Until Mon05/12/23 at 1449, Routine, Anesthesia Intraprocedure Given 05/12/2023 9:16 AM EDT 8 mg droperidol (Inapsine) injection Intravenous, As needed, Starting on Mon05/12/23 at 1333, Until Mon05/12/23 at 1449, Routine, Anesthesia Intraprocedure Given 05/12/2023 1:33 PM EDT 0.625 mg ePHEDrine Sulfate injection Intravenous, As needed, Starting on Mon05/12/23 at 0828, Until Mon05/12/23 at 1449, Routine, Anesthesia Intraprocedure Given 05/12/2023 1:39 PM EDT 5 mg Given 05/12/2023 1:34 PM EDT 5 mg Given 05/12/2023 10:22 AM EDT 10 mg fentaNYL (Sublimaze) injection Intravenous, As needed, Starting on Mon05/12/23 at 0711, Until Mon05/12/23 at 1449, Routine, Anesthesia Intraprocedure Given 05/12/2023 2:03 PM EDT 50 mcg Given 05/12/2023 12:21 PM EDT 50 mcg Given 05/12/2023 10:57 AM EDT 100 mcg furosemide (Lasix) injection Intravenous, As needed, Starting on Mon05/12/23 at 1115, Until Mon05/12/23 at 1449, Anesthesia Intraprocedure, Routine Given 05/12/2023 11:15 AM EDT 5 mg glycopyrrolate (Robinul) injection Intravenous, As needed, Starting on Mon05/12/23 at 0715, Until Mon05/12/23 at 1449, Routine, Anesthesia Intraprocedure Given 05/12/2023 7:15 AM EDT 0.2 mg heparin (porcine) injection Intravenous, As needed, Starting on Mon05/12/23 at 1021, Until Mon05/12/23 at 1449, Routine, Anesthesia Intraprocedure Given 05/12/2023 10:28 AM EDT 25,000 Units Given 05/12/2023 10:21 AM EDT 5,000 Units insulin regular in sodium chloride 0.9 % 1 UNIT/ML infusion Intravenous, As needed, Starting on Mon05/12/23 at 1046, Until Mon05/12/23 at 1449, Routine, Anesthesia Intraprocedure New Bag 05/12/2023 1:20 PM EDT 2.55 Units/hr 2.55 mL/hr Given 05/12/2023 12:09 PM EDT 5.5 Units Given 05/12/2023 11:34 AM EDT 5.5 Units lidocaine (cardiac) PF (Xylocaine) injection Intravenous, As needed, Starting on Mon05/12/23 at 1238, Until Mon05/12/23 at 1449, Routine, Anesthesia Intraprocedure Given 05/12/2023 12:38 PM EDT 100 mg midazolam (Versed) injection Intravenous, As needed, Starting on Mon05/12/23 at 0711, Until Mon05/12/23 at 1449, Routine, Anesthesia Intraprocedure Given 05/12/2023 2:03 PM EDT 1 mg Given 05/12/2023 12:21 PM EDT 1 mg Given 05/12/2023 10:57 AM EDT 1 mg nitroglycerin (Tridil) 50 mg in 250 mL D5W (200 mcg/mL) infusion Intravenous, Continuous PRN, Starting on Mon05/12/23 at 0844, Until Mon05/12/23 at 1449, Routine, Anesthesia Intraprocedure Restarted 05/12/2023 9:18 AM EDT 0.125 mcg/kg/min 2.805 mL/hr Rate/Dose Change 05/12/2023 8:49 AM EDT 0.125 mcg/kg/min 2 .805 mL/hr New Bag 05/12/2023 8:44 AM EDT 0.25 mcg/kg/min 5.61 mL/ hr nitroglycerin (Tridil) in D5W IV solution 100 mcg/mL Intravenous, As needed, Starting on Mon05/12/23 at 0839, Until Mon05/12/23 at 1449, Routine, Anesthesia Intraprocedure Given 05/12/2023 10:51 AM EDT 100 mcg Given 05/12/2023 10:31 AM EDT 50 mcg Given 05/12/2023 8:41 AM EDT 200 mcg Prime for CPB (OSM) Perfusion, Continuous PRN, Starting on Mon05/12/23 at 1044, Until Mon05/12/23 at 1449, Routine New Bag 05/12/2023 10:44 AM EDT 850 mL protamine injection Intravenous, As needed, Starting on Mon05/12/23 at 1259, Until Mon05/12/23 at 1449, Routine, Anesthesia Intraprocedure Given 05/12/2023 12:59 PM EDT 195 mg rocuronium (ZeMuron) injection Intravenous, As needed, Starting on Mon05/12/23 at 0826, Until Mon05/12/23 at 1449, Routine, Anesthesia Intraprocedure Given 05/12/2023 1:42 PM EDT 10 mg Given 05/12/2023 12:21 PM EDT 10 mg Given 05/12/2023 10:21 AM EDT 10 mg sodium chloride 0.9 % infusion Intravenous, Continuous PRN, Starting on Mon05/12/23 at 0709, Until Mon05/12/23 at 1449, Routine Rate/Dose Change 05/12/2023 1:00 PM EDT 50 mL/hr Rate/Dose Change 05/12/2023 9:27 AM EDT 40 mL/h r Rate/Dose Change 05/12/2023 8:11 AM EDT 50 mL/h r sodium chloride 0.9 % infusion Intravenous, Continuous PRN, Starting on Mon05/12/23 at 1024, Until Mon05/12/23 at 1449, Routine Restarted 05/12/2023 2:04 PM EDT New Bag 05/12/2023 1:35 PM EDT New Bag 05/12/2023 10:24 AM EDT tranexamic acid (Cyklokapron) 1,000 mg in sodium chloride 0.9 % 100 mL (10 mg/mL) infusion Intravenous, Continuous PRN, Starting on Mon05/12/23 at 1023, Until Mon05/12/23 at 1449, Routine New Bag 05/12/2023 10:23 AM EDT 1 mg/kg/hr 7.48 mL/hr tranexamic acid (Cyklokapron) injection Intravenous, As needed, Starting on Mon05/12/23 at 1023, Until Mon05/12/23 at 1449, Routine, Anesthesia Intraprocedure Given 05/12/2023 10:23 AM EDT 1,122 mg documented in this encounter Additional Health Concerns Assessment Noted Time A fall risk assessment has been complete d for the patient 05/04/2023 9:45 AM EDT A Body Mass Index follow-up plan has been documented for the patient 05/16/2023 10:45 AM EDT documented as of this encounter Care Teams Securities Supervisor Relationship Specialty Start Date End Date Carl Tate DO [address] [place] [id number] PCP - General 04/17/23 Leandro Seaman MD [address] [place], [place] [id number] [place] [address] Consulting Physician Radiation Oncology 07/30/21 Carl Gaffney MD [facility] [address] [address] Referring Physician 05/12/23 documented as of this encounter
--- OUTSIDE RECORDS SUMMARY | 2024-01-11 09:11 | XMS_ITS | Encounter Summary ---
Author Organization Healthcare Address [address] [id number] Care Team Providers Care Assembly Adjuster Name Role Phone Leandro Seaman MD Unavailable [phone] Carl Tate DO Primary Care Provider [phone] Carl Gaffney MD Unavailable [phone] Encounter Details Date Type Department Care Team (Latest Contact Info) Description 05/12/2023 Travel Social History Tobacco Use Types Packs/Day [...] Description 01/15/2024 10:00 AM EST [facility]illary Procedure [facility] [address] [place] [address] 01/15/2024 11:00 AM EST Consult [facility] Medicine Specialties [address] [place] [address] Nael, Ida L, PA [address] [place] [address] 06/19/2024 11:00 AM EDT Appointment [facility] Radiation [address] [facility] [id number] [place] [address] Leandro Seaman MD [address] [place] [phone] documented as of this encounter Visit Diagnoses Not on filedocumented in this encounter Additional Health Concerns Assessment Noted Time A fall risk assessment has been complete d for the patient 05/04/2023 9:45 AM EDT A Body Mass Index follow-up plan has been documented for the patient 05/16/2023 10:45 AM EDT documented as of this encounter Care Teams Assembly Adjuster Relationship Specialty Start Date End Date Carl Tate DO [address] [place] [id number] PCP - General 04/17/23 Leandro Seaman MD [address] [place] [phone] Consulting Physician Radiation Oncology 07/30/21 Carl Gaffney MD [address] [place] [address] Referring Physician 05/12/23 documented as of this encounter
--- OUTSIDE RECORDS SUMMARY | 2024-01-11 09:11 | XMS_ITS | Encounter Summary ---
Author Organization Healthcare Address [address] [place] [address] Care Team Providers Care Market Garden Worker Name Role Phone Leandro Seaman MD Unavailable [phone] Carl Tate DO Primary Care Provider [phone] Encounter Details Date Type Department Care Team (Late st Contact Info) Description 05/05/2023 Telephone [facility] [address], [address] [place] [address] Ester Neff, RN [id number] [address] [id number] Social History Tobacco Use Types Packs/Day Years [...] Telephone Encounter - Ester Neff RN - 05/05/2023 10:09 AM EDT Labs reviewed with Jani Brown level 5.4, pt taking Spironolactone. Recommends pt hold a few doses. Pt advised. Pt verbalized understanding and agreed to POC documented in this encounter Plan of Treatment Upcoming Encounters Date Type Department Care Team (Late st Contact Info) Description 01/15/2024 10:00 AM EST Ancillary Procedure [facility] Medicine Specialties [address] [place] [address] 01/15/2024 11:00 AM EST Consult [facility] Medicine Specialties [address] [place] [address] Ida Nayak, PA [address] [place] [address] 06/19/2024 11:00 AM EDT Appointment [facility] Rad[facility] [address] [facility] [id number] [place] [address] Leandro Seaman MD [address] [phone] documented as of this encounter Visit Diagnoses Not on filedocumented in this encounter Additional Health Concerns Assessment Noted Time A fall risk assessment has been complete d for the patient 05/04/2023 9:45 AM EDT A Body Mass Index follow-up plan has been documented for the patient 05/04/2023 11:05 AM EDT documented as of this encounter Care Teams Market Garden Worker Relationship Specialty Start Date End Date Carl Tate DO [address] [place] [id number] PCP - General 04/17/23 Leandro Seaman MD [address] [place] [phone] Consulting Physician Radiation Oncology 07/30/21 documented as of this encounter
--- OUTSIDE RECORDS SUMMARY | 2024-01-11 09:11 | XMS_ITS | Encounter Summary ---
Author Organization [facility] Address [address] [place] [address] Care Team Providers Care Vision Rehabilitation Therapist Name Role Phone Leandro Seaman MD Unavailable [phone] Carl Tate DO Primary Care Provider [phone] Carl Gaffney MD Unavailable [phone] Reason for Visit * Auth/Cert (Routine) Specialty Diagnoses / Procedures Referred By Contac t Referred To Contact Diagnoses CAD (coronary artery disease) CAD Procedures [place] CABG, ARTERIAL, SINGLE CABG Pablo Mckeon MD [address] [address] Phone: tel: fax: [facility] RO[facility] [address] [place] [address] Phone: tel: Referral ID Status Reason Start Date Expiration Date Visits Re quested Visits Authorized [id number] 1 1 Encounter Details Date Type Department Care Team (Late st Contact Info) Description 05/12/2023 7:00 AM EDT - 05/12/2023 3:10 PM EDT Surgery [facility] [address] [place] [address] Pablo Mckeon MD [address] [address] CABG [[id number] (CPT??)] Surgery Details Date/Time Status Location OR Service Patient Class Case Class Case Type Trauma Case? 05/12/2023 7:00 AM Posted [facility] OR PAVA OR 14 Cardiothoracic Surgery Surgery Admit E-Elect kirstie Panel 1 Procedure LRB Anes Op Region Wound Class Comments CABG N/A General Surgeon Surgeon Role Service Panel Pablo Mckeon MD Primary Cardiothoracic Surg maury 1 Andrea Coppola PA Assisting 1 documented in this encounter Social History Tobacco [...] Sign Reading Time Taken Comments Blood Pressure 140/72 05/12/2023 6:43 AM EDT rig ht Pulse 85 05/12/2023 3:00 PM EDT Temperature 36.2 ??C (97.2 ??F) 05/12/2023 3:00 PM ED T Respiratory Rate 27 05/12/2023 3:00 PM EDT Oxygen Saturation 100% 05/12/2023 3:00 PM EDT Inhaled Oxygen Concentration - - Weight 74.8 kg (165 lb) 05/12/2023 6:11 AM EDT Height - - Body Mass Index 25.72 05/13/2023 9:00 AM EDT documented in this encounter Discharge Instructions * Discharge Instructions* Rose Fields APRN - 05/16/2023 10:44 AM EDT Follow up appointment with Dr. Gaffney: July 10 at 11:00 a.m. * Attachments The following attachments cannot be sent through Care Everywhere. * After Bypass Surgery, Managing Pain (Tanzanian) * After Bypass Surgery, Your Emotional Health (Tanzanian) * Coronary Artery Bypass Graft Surgery, Discharge Instructions for (Tanzanian) * After Sternotomy: General Safety ([place]) (Tanzanian) documented in this encounter Medications at Time [...] 1 tablet (25 mg). //Sat 05/19/2020 Tiotropium [place] Monohydrate (Spiriva Respimat) 2.5 MCG/ACT inhaler Inhale [...] a referral and prefers to attend at [facility]. Referral will be sent to [facility] and they will contact him to discuss [...] rehabilitation program. 2. Eligibility: CABG 3. Exceptions/exclusions: [facility] Cardiac Rehab Exclusions: None 4. Referral: [facility] Cardiac Rehab Referral: Patient agreed with referral to the cardiac rehabilitation program at [facility] in [place], [place], phone number [phone]. 5. Information sent: Information Sent: Appropriate information will be sent to the receiving cardiac rehabilitation program.: * Progress Notes - Brigette Tadeo RN - 05/16/2023 10:55 AM EDT Case Management Discharge Note Ivis Noriega 77 y.o. male [facility]: [id number] Admission: 05/12/2023 5:18 AM Primary Problem: CAD in [place] artery Primary Pss Delivery Professional: Primary Caregiver: Self Assistance Available at Discharge: Availability of Care Givers (#Hours): 24 hours Family/Pss Delivery Professional(s) Readiness Assessed to care for patient at home: Yes Housing Circumstances-Z Codes: Housing Circumstances (select all that apply): None Applicable Discharge Facility/Level of Care Needs: Discharge Facility/Level of Care Needs: 1-Home or Self Care Patient's Choice of Community Agency(s): Patient's Choice of Community Agency(s): [facility] for rollator Patient/Family Anticipated Services at Transition: Patient/Family Anticipated Services at Transition: durable medical equipment DME/Equipment Needed after Discharge: Equipment Currently Used at Home: none Equipment Needed After Discharge: mahsa tate Follow-up: Carl Gaffney MD [address] [place] [address] Follow up Your appointment time is Please [...] Patient is independent and lives with . Cm ordered rollator from [facility] [place] [phone] cm faxed patient info and order [phone] and spoke to [facility]- rollator will be delivered to patient home. Patient is aware . Patient has no additional thera py recs or cm discharge needs at this time. states she is agreeable and able to provide support if needed. will transport when medically ready No RN/SW CM discharge needs noted at this time . Any additional needs after cm dept hours please page evening/weekend cm at [phone]. Brigette Tadeo, RN * Discharge Summary - Rose Fields APRN - 05/16/2023 10:33 AM EDT Hospitalization Admit Date/Time: 05/12/2023 5:18 AM Admitting Attending: Pablo Mckeon Discharge Date: 05/16/2023 Discharge Attending Physician: Pablo Mckeon MD PCP name and Address: Carl Tate, [place] [address] Referring provider name and address: No referring [...] Aldactone 1 tablet (25 mg). //Mon Tiotropium [place] Monohydrate 2.5 MCG/ACT inhaler Commonly known as: Spiriva Respimat Inhale 2 puffs 1 (one) time each day. Where to Get Your Medications These medications were sent to [facility] [place], [place] - [address] [facility] [address] [facility] [id number] acetaminophen 325 MG tablet DSS 100 MG [...] 06/08/2023 11:40 AM Pablo Mckeon MD [facility] 07/17/2023 8:[address] [facility] 07/17/2023 10:00 AM Leandro Seaman MD RO RADONC [facility] Fink 07/11/2023 11:[address] Gaffney Test [...] Note Ivis Noriega 77 y.o. male CSN: [id number] Admission: 05/12/2023 5:18 AM Primary Problem: CAD in [place] artery Possible dc today per rounding this am . Patient would like to use [facility] for rollator. cm contacted [facility] and faxed all info and order. They can deliver to patient home . [phone] fax [phone]- patient aware . Brigette Tadeo, RN * [...] Daily senna, 17.2 mg, Oral, Nightly Tiotropium [place] Monohydrate, 2 puff, Inhalation, Daily Visit Vitals [...] Progress Note Ivis Noriega 77 y.o. male [facility]: [id number] Admission: 05/12/2023 5:18 AM Primary Problem: CAD in [place] artery Starter Cup Powder Mixer reviewed chart and spoke with the patient and his , Michelle, to complete this Initial Case Management Assessment. PCP: Carl Tate, DO Emergency Contact: Extended Emergency Contact Information Primary Emergency Contact: Michelle Noriega [facility] Mobile Relation: Spouse Bander And Cellophaner Machine needed? No Insurance: Primary Visit Coverage Payer Plan Sponsor Code Group Number Group Name MEDICARE MEDICARE A & B Primary Visit Coverage Subscriber Subscriber ID Subscriber Name Subscriber SSN Subscriber Address [id number] IVIS NORIEGA [id number] [place] [address] Secondary Visit Coverage Payer Plan Sponsor Code Group Number Group Name AAR AARP HEALTH CLAIMS Secondary Visit Coverage Subscriber Subscriber ID Subscriber Name Subscriber SSN Subscriber Address [id number] IVIS NORIEGA [id number] [place] [address] Patient information: Primary Caregiver: Self Accompanied by/Relationship: , Michelle Support System: Immediate family Daily Living Activities: Functional Status: Independent Living Arrangements: Spouse/Significant other Type of Residence: Multi Level [address] [place] [address] [place] [address] Current DME: Equipment Currently Used at Home: [...] Denies prior HH/Abx/HD/TF/DME/O2. Living Will/Advance Directive/Power of Extended Day Teacher /Guardian: Has a LW. Pt wishes to be a full code. Additional Comments: BRIAN met with CVT team to discuss pt's plan of care. Per team, chief complaint is CAD. BRIAN met with ptat bedside for initial evaluation. Spouse Michelle was at bedside. They report that pt may be able to be discharged home tomorrow, per team. Confirmed address: [address] [place] [address] [place] [address]. Pt lives in a multi level home with1 step to enter. Pt's bedroom is on the main floor. PCP is Carl Tate M.D. and molding machine setter is Carl Gaffney M.D. Denies prior HH/HD/DME/O2/Abx/TF. Pt obtains his prescriptions at [facility] in [place]. Family to transport and assist as needed at discharge. No current SW/CM needs identified at this time. SUSANA Hayden * Clinician Note - Rose Fields, PEDIATRIC SPEECH LANGUAGE PATHOLOGIST - 05/15/2023 10:53 AM EDT CVT Progress [...] for Hgb < 7 - H/H 9.4/29.8 Thrombocytopenia - monitor and transfuse prn - [...] Acute hypoxic respiratory failure (resolved) Cardiothoracic Surgery [phone] * Progress Notes - Kelsey Alvarez - 05/15/2023 9:00 AM EDT Hospital visit made. Michelle Noriega(Spouse) at bedside. Went over [facility] program. Patient verbalized understanding and agreed to program. Enrolled patient in [facility] Transitional Care program under Transitional Care Model. Transitions will assist with support and education at time of discharge. Hospital field hockey coach will follow throughout stay. Home field hockey coach will see patient within 48 hours of discharge and follow with home visits and telephone contact times 6 weeks. Provided [facility] folder with brochure, educational materials, and [...] Daily senna, 17.2 mg, Oral, Nightly Tiotropium [place] Monohydrate, 2 puff, Inhalation, Daily Visit Vitals [...] AM EDT Procedures 05/13/23 Ivis Noriega HPI Ivis Noriega is a 77 y.o. male who presents with CAD in [place] artery. If applicable, patient is s/p Procedure(s) and Anesthesia Type: * CABG - General. Patient is 1 Day Post-Op with Cardiothoracic Surgery. Past 24 hours: PM: Extubated to NC. 40 IV lasix. AM: Episodes of vomiting when standing, scheduling zofran. Remove [place]. Start BB. 2L NC, wean to RA. [...] Hospital Problems POA * (Principal) CAD in [place] artery Yes Overview Addendum 05/13/2023 10:55 AM by Kaitlin White MD -S/P PCI -[facility] 04/27/23: LAD stent open, LMA stent 80% stenosis, circ with RCA stent #1 and #2 in prox and mid. 50% stenosis of prox, 70% stenosis distal. Circ stent with 90% stenosis prox to obtuse 1 and 2. -S/P 3 v CABG per [facility] 05/12/23 - GDMT Primary hypertension Yes Overview [...] grafts used COPD (chronic obstructive pulmonary disease) ([facility]) Yes Overview Addendum 05/13/2023 10:55 AM by Kaitlin White MD Resume home meds when appropriate Duonebs while inpatient Acute respiratory failure with hypoxia ([facility]) No Overview Addendum 05/13/2023 10:54 AM by Kaitlin White MD Intubated for OR 05/12/23 To ICU with sedation post Op Extubated to NE Continue to wean as able Hyperglycemia No Overview Addendum 05/13/2023 10:55 AM by Kaitlin White MD A1c is 4.9 pre-op - Hyperglycemia post op On SSI as needed Thrombocytopenia ([facility]) No Overview Addendum 05/13/2023 10:56 [...] neoplasm of upper lobe of left lung ([facility]) Osteoporosis CAD (coronary artery disease) HHD (hypertensive heart disease) PAD (peripheral artery disease) ([facility]) Kaitlin White MD Cosigned by Jori Peck [...] admitted 05/12/2023 for work-up of CAD in [place] artery. Hospital Course 1. Acute respiratory failure with hypoxia ([facility]) 2. S/P CABG x 3 3. CAD in [place] artery Procedures (if applicable) 05/12/2023 Procedure(s): CABG Past Medical History Patient has a past medical history of CAD (coronary artery disease) (05/03/2023), Conversions - Other, Conversions - Other, COPD (chronic obstructive pulmonary disease) ([facility])(05/12/2023), HLD (hyperlipidemia) (05/03/2023), Hypertension (06/19/2014), Lung cancer ([facility]), Malignant neoplasm of upper lobe of left lung ([facility]) (07/30/2020), Osteoporosis (05/03/2023), and Other [...] distances and transferred bed <> chair with staffing executive earlier this morning. PARTICIPANTS IN CARE Visitors Present Yes Spouse Bander And Cellophaner Machine (if applicable) PRESENTATION Oxygen Oxygen Therapy: Supplemental [...] IV 05/12/23 Posterior;Right Hand (Active) External Pacemaker [place] Familia / PAC Pre-Session Lines intact, Sitting [...] admission Level of Mobility Ambulatory- community Mobility [place] (Pt negotiates a flight of steps in [...] pt was positioned for comfort. DELIRIUM SCREENING Kaur Agitation Sedation Scale (RASS): Alert and [...] Left Lower Intact BED MOBILITY Level of [place] Physical/Non- physical Assist Adaptive Equipment Utilized Rolling/ Turning Scooting/ Bridging Supine to Sit Sit to Supine Moderate assist (50% patient's effort) Supervision, Verbal Cues, Maximal cues, HOB elevated Interventions TRANSFERS Level of [place] Physical/Non- physical Assist Adaptive Equipment Utilized Sit to Stand Stand-by assist Supervision, Verbal Cues Rollator Stand to sit Stand-by assist Supervision, Verbal Cues Rollator Bed to Chair Toilet Transfer Shower Transfer Interventions AMBULATION Level of [place] Distance Adaptive Equipment Utilized Ambulation Standby assist [...] Appearance Posture: Within Functional Limits Level of [place] Balance Support Interventions Static Sit Supervision No [...] 3-5 steps with a railing?: A little AMPAC 6-Clicks Mobility Assessment Total : 17 ASSESSMENT [...] admitted 05/12/2023 for work-up of CAD in [place] artery. Hospital Course 1. Acute respiratory failure with hypoxia (CMS/HCC) 2. S/P CABG x 3 3. CAD in [place] artery Procedures 05/12/2023 Procedure(s): CABG Past Medical History Patient has a past medical history of CAD (coronary artery disease) (05/03/2023), Conversions - Other, Conversions - Other, COPD (chronic obstructive pulmonary disease) ([facility]) (05/12/2023), HLD (hyperlipidemia) (05/03/2023), Hypertension (06/19/2014), Lung cancer ([facility]), Malignant neoplasm of upper lobe of left lung ([facility]) (07/30/2020), Osteoporosis (05/03/2023), and Other [...] admission Level of Mobility: Ambulatory- community Mobility [place]: Independent gait without device History of Falls: [...] Mobility Exam: Sit to Supine Level of [place]: Moderate assist (50% patient's effort) Physical/Nonphysical Assist: Supervision, Verbal Cues, Maximal cues, HOB elevated Transfers Transfer Exam: Sit to stand Level of [place]: Stand-by assist Physical/Nonphysical Assist: Supervision, Verbal Cues Assistive Device: Rollator Transfer Exam: Stand to Sit Level of [place]: Stand-by assist Physical/Nonphysical Assist: Supervision, Verbal Cues [...] Note Ivis Noriega 77 y.o. male CSN: [id number] Room/Bed 228/228A Nutrition evaluation type: assessment Reason [...] Date CARDIAC CATHETERIZATION CHOLECYSTECTOMY N/A Cholecystectomy from [facility] CORONARY ARTERY BYPASS GRAFT 05/12/2023 CABG x 2 - SVG to distal RCA, -Right internal mammary artery composite graft to vein distally to left anterior descending (Dr Pablo Mckeon) CORONARY STENT PLACEMENT 2021 PTCA with brachy therapy Cx KNEE SURGERY N/A Knee Surgery from [facility] OTHER SURGICAL HISTORY N/A Rt femoral stent > 20 years ago RADIATION THERAPY Lt lung cancer 2014 and 2021 WRIST FRACTURE SURGERY Left pins Social history: Additional comments: 05/12: Weekend coverage Vitals and Basic Assessment: BP: (!) 140/72 (right) Temp: 37.5 ??C (99.5 ??F) Invasive Ventilator Initiated (ETT/Trach Only): Yes Oxygen Therapy: Supplemental oxygen O2 Delivery Method: Nasal cannula Mely Coma Scale Score: 15 Justino Scale Score: [...] (Calculated): 25.62 Weight Evaluation: Overweight (BMI 25-29.9) [place] Body Weight (kg): 70 Percent [place] Body Weight: 109 Estimated Needs: Metabolic Cart Study Results: Current Nutrition Intake: Diet Supplements: None Diet Order: NPO Diet Experience and Nutrition History: Diet Education Provided: Will monitor Pertinent home medications: lipitor, plavix, probiotics Taoism needs: None noted Nutrition Focused Physical Exam: [...] standard protocol, 0.5-30 Units/hr, Last Rate: Stopped (05/13/23226) nitroglycerin, 0.2-2 mcg/kg/min, Last Rate: Stopped (05/12/232199) PAP: (18-46)/(7-29) 01/11 Visit Vitals BP (!) 140/72 Comment: right [...] Post-Procedure Diagnose(s): Acute respiratory failure with hypoxia (CMS/HCC) Critical Care Performed by: Santo Amin MD [...] Noriega Past 24 hours: PM: Extubated to NC. AM: 20 K replaced, PS trial, reversed, NTG for HTN Edited by: Higinio Hhan DO at 05/12/2023 2206 Lines/Drains/Tubes: Patient Lines/Drains/Airways [...] 28 Fr. 2 Right Pleural 28 Fr. 04/05/24 1404 -- less than 1 Arterial Line 05/12/23 Left Radial 05/12/23 0833 Radial less than 1 Pulmonary Artery Catheter 05/12/23 Internal jugular Right 05/12/23 0834 Internal jugular less than 1 Past Medical History: Active Ambulatory Problems Diagnosis Date Noted Malignant neoplasm of upper lobe of left lung ([facility]) 07/30/2020 Osteoporosis 05/03/2023 CAD (coronary artery disease) 05/03/2023 Primary hypertension 06/19/2014 HLD (hyperlipidemia) 05/03/2023 HHD (hypertensive heart disease) 05/03/2023 PAD (peripheral artery disease) ([facility]) 05/03/2023 Resolved Ambulatory Problems Diagnosis Date Noted No Resolved Ambulatory Problems Past Medical History: Diagnosis Date Conversions - Other Conversions - Other COPD (chronic obstructive pulmonary disease) ([facility]) 05/12/2023 Hypertension 06/19/2014 Lung cancer ([facility]) Other specified anemias 05/12/2023 Past Surgical History: Past Surgical History: Procedure Laterality Date CARDIAC CATHETERIZATION CHOLECYSTECTOMY N/A Cholecystectomy from [facility] CORONARY ARTERY BYPASS GRAFT 05/12/2023 CABG x 2 - SVG to distal RCA, -Right internal mammary artery composite graft to vein distally to left anterior descending (Dr Pablo Mckeon) CORONARY STENT PLACEMENT 2021 PTCA with brachy therapy Cx KNEE SURGERY N/A Knee Surgery from [facility] OTHER SURGICAL HISTORY N/A Rt femoral stent > 20 years ago RADIATION THERAPY Lt lung cancer 2014 and 2021 WRIST FRACTURE SURGERY Left pins Home Medications: Prior to Admission medications Medication Sig Start Date End Date Taking? Authorizing Provider albuterol 108 (90 Base) MCG/ACT inhaler Inhale 2 puffs 4 (four) times a day if needed for wheezing.Yes ProviderCiarra MD aspirin 81 MG chewable tablet Chew 1 tablet (81 mg) 1 (one) time each day. Yes Provider, MD Ciarra atorvastatin (Lipitor) 80 MG tablet Take 1 tablet (80 mg) by mouth every night. 06/05/20 Yes ProviderCiarra MD metoprolol succinate XL (Toprol-XL) 50 MG 24 hr tablet Take 0.5 tablets (25 mg) by mouth 1 (one) time each day. 10/03/22 Yes ProviderCiarra MD spironolactone (Aldactone) 25 MG tablet 1 tablet (25 mg). /Thurs/Sat 05/19/20 Yes Ciarra Queen MD Tiotropium [place] Monohydrate (Spiriva Respimat) 2.5 MCG/ACT inhaler Inhale [...] above the darling. Right internal jugular approach [place]Familia catheter with tip of the main pulmonary [...] Problems Problem List * (Principal) CAD in [place] artery Overview Addendum 05/12/2023 3:17 PM by Carmelina Sainz APRN -S/P PCI -[facility] 04/27/23: LAD stent open, LMA stent 80% stenosis, circ with RCA stent #1 and #2 in prox and mid. 50% stenosis of prox, 70% stenosis distal. Circ stent with 90% stenosis prox to obtuse 1 and 2. -S/P 3 v CABG per [facility] 05/12/23 - GDMT Malignant neoplasm of upper lobe of left lung ([facility]) Osteoporosis CAD (coronary artery disease) Primary hypertension Overview Addendum 05/12/2023 3:19 PM by Carmelina Sainz APRN Resume home meds when appropriate HLD (hyperlipidemia) HHD (hypertensive heart disease) PAD (peripheral artery disease) ([facility]) S/P CABG x 3 Overview [...] grafts used COPD (chronic obstructive pulmonary disease) ([facility]) Overview Addendum 05/12/2023 3:21 PM by Carmelina Sainz APRN Resume home meds when appropriate Duonebs while inpatient Acute respiratory failure with hypoxia ([facility]) Overview Signed 05/12/2023 3:21 PM by Carmelina Sainz APRN Intubated for OR 05/12/23 To ICU with sedation post Op Evaluate for fast track extubation Hyperglycemia Overview Signed 05/12/2023 3:23 PM by Carmelina Sainz APRN A1c is 4.9 pre-op - Hyperglycemia post op - Insulin gtt overnight as needed. Thrombocytopenia ([facility]) Overview Signed 05/12/2023 3:25 PM [...] department on the 1st floor of the [facility] near [facility] for a chest x-ray. Then [...] your incisions. Do NOT lift, push or assembler for puller over hand 5 pounds for six weeks. Do NOT [...] or concerns, please contact.... Ester Neff RN [phone] Monday through Monday 8 AM - 5 PM [facility] [phone] after 5 PM, weekends and holidays - ask for the CT surgeon gas operation manager. * H&P - Nory Michele APRN - 05/12/2023 3:38 PM EDTAssociated Order(s): Critical Care Post-Procedure Diagnose(s): S/P CABG x 3; Acute respiratory failure with hypoxia (CMS/HCC); CAD in [place] artery Critical Care Performed by: Nory Michele [...] were present on rounds. 05/12/23 Ivis Noriega HPI Ivis Noriega is a 77 y.o. male who presents with CAD in [place] artery. If applicable, patient is s/p Procedure(s) [...] for coronary artery disease status post stents ([id number], LAD, circumflex and RCA), tobacco use disorder inremission since 2003. Had a [facility] with mv CAD and stent restenosis of [...] NTG for HTN Edited by: Carmelina Sainz, PEDIATRIC SPEECH LANGUAGE PATHOLOGIST at 05/12/2023 1526 Lines/Drains/Tubes: Patient Lines/Drains/Airways Status [...] 0834 Internal jugular less than 1 GCS: [place] Coma Scale Score: 15 Review of Systems [...] Problems Problem List * (Principal) CAD in [place] artery Overview Addendum 05/12/2023 3:17 PM by Carmelina Sainz APRN -S/P PCI [id number] -[facility] 04/27/23: LAD stent open, LMA stent 80% stenosis, circ with RCA stent #1 and #2 in prox and mid. 50% stenosis of prox, 70% stenosis distal. Circ stent with 90% stenosis prox to obtuse 1 and 2. -S/P 3 v CABG per [facility] 05/12/23 - GDMT Malignant neoplasm of upper lobe of left lung ([facility]) Osteoporosis CAD (coronary artery disease) Primary hypertension Overview Addendum 05/12/2023 3:19 PM by Carmelina Sainz APRN Resume home meds when appropriate HLD (hyperlipidemia) HHD (hypertensive heart disease) PAD (peripheral artery disease) ([facility]) S/P CABG x 3 Overview [...] grafts used COPD (chronic obstructive pulmonary disease) ([facility]) Overview Addendum 05/12/2023 3:21 PM by Carmelina Sainz APRN Resume home meds when appropriate [place] while inpatient Acute respiratory failure with hypoxia ([facility]) Overview Signed 05/12/2023 3:21 PM by Carmelina Sainz APRN Intubated for OR 05/12/23 To ICU with sedation post Op Evaluate for fast track extubation Hyperglycemia Overview Signed 05/12/2023 3:23 PM by Carmelina Sainz APRN A1c is 4.9 pre-op - Hyperglycemia post op - Insulin gtt overnight as needed. Thrombocytopenia (CMS/HCC) Overview Signed 05/12/2023 3:25 PM by Carmelina [...] anterior descending coronary artery. Date: 05/12/23 Location: [facility] Name: Ivis Noriega, : 1945, Diagnoses: Pre-op Diagnosis CAD (coronary artery disease) Patient Active Problem List Diagnosis 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) Osteoporosis CAD (coronary artery disease) Primary hypertension HLD (hyperlipidemia) HHD (hypertensive heart disease) PAD (peripheral artery disease) (CMS/HCC) CAD in [place] artery S/P CABG x 3 Acute postoperative [...] PAD (peripheral artery disease) (CMS/HCC) CAD in [place] artery S/P CABG x 3 Acute postoperative [...] left anterior descending coronary artery. Attending Surgeon(s): Pablo Quispe - Primary * Andrea Coppola - Assisting Straightedge Worker(s): Andrea Coppola PAC 1st assisted and performed endoscopic vein harvest [...] both of which were very small. His [place] right coronary artery had proximal and distal [...] was induced, monitoring lines were placed, a [place]-Fam[place] catheter was floated into position and a [...] had been harvested. All looked hemostatic. 1-36 [place] mediastinal tube was placed, 1-right 28 [place] pleural tube was placed, and 1-left 28 [place] pleural tube was placed. Chest tubes and pacing wires were secured to the anterior abdominal wall. The sternum was reapproximated with interrupted [id number] stainless steel wire 7. Fascia was closed [...] for coronary artery disease status post stents ([id number], LAD, circumflex and RCA) and left upper [...] heart disease) 05/03/2023 PAD (peripheral artery disease) ([facility]/HCC) 05/03/2023 Malignant neoplasm of upper lobe of left lung ([facility]/HCC) 07/30/2020 Hypertension 06/19/2014 Medical History: Past Medical History: Diagnosis Date CAD (coronary artery disease) 05/03/2023 Conversions - Other Bloating Conversions - Other Diarrhea (Symptom) HLD (hyperlipidemia) 05/03/2023 Hypertension 06/19/2014 Lung cancer ([facility]) radiation tx Malignant neoplasm of upper lobe of left lung ([facility]/HCC) 07/30/2020 Osteoporosis 05/03/2023 Surgical History: Surgical History Past Surgical History: Procedure Laterality Date CARDIAC CATHETERIZATION CHOLECYSTECTOMY N/A Cholecystectomy from [facility] CORONARY STENT PLACEMENT 2021 PTCA with brachy therapy Cx KNEE SURGERY N/A Knee Surgery from [facility] OTHER SURGICAL HISTORY N/A Transcath Intravascular Stent Placement Percutaneous Femoral from [facility] RADIATION THERAPY 2014 and 2021 WRIST FRACTURE [...] times a day if needed for wheezing.Yes ProviderCiarra MD aspirin 81 MG chewable tablet Chew 1 tablet (81 mg) 1 (one) time each day. Yes ProviderCiarra MD atorvastatin (Lipitor) 80 MG tablet TAKE [...] //Sat 05/19/20 Yes Ciarra Queen MD Tiotropium [place] Monohydrate (Spiriva Respimat) 2.5 MCG/ACT inhaler Inhale 2 puffs 2 (two) times a day. Yes Ciarra Queen MD oseltamivir (Tamiflu) 75 MG capsule 04/10/23 05/04/23 Ciarra Queen MD ranolazine (Ranexa) 1000 MG 12 hr tablet Take 500 mg by mouth 2 (two) times a day. Patient not taking: Reported on 05/04/2023 07/02/21 05/04/23 Ciarra Queen MD Trelegy Ellipta 100-62.5-25 MCG/ACT aerosol powder Inhale 1 puff. Patient not taking: Reported on 05/04/2023 02/08/23 05/04/23 Ciarra Queen MD Physical exam: Visit Vitals BP 120/72 Pulse [...] for coronary artery disease status post stents ([id number], LAD, circumflex and RCA) and left upper [...] Description 01/15/2024 10:00 AM EST Ancillary Procedure [facility] [address] [place] [address] 01/15/2024 11:00 AM EST Consult [facility] [address] [place] [address] Ida Nayak PA [address] [place] [address] 06/19/2024 11:00 AM EDT Appointment [facility] [id number] [place] [address] Leandro Seaman MD [id number] [place] [address] Pending Results Name Type Priority Associated Diagnoses [...] PANEL, ARTERIAL Timed 05/13/2023 12:17 AM EDT [place] [facility] [place]DL 30 MIN Routine 05/12/2023 11:50 PM EDT Acute respiratory failure with hypoxia (CMS/HCC) [place] [facility], ADDL 30 MIN Routine 05/12/2023 [...] MIXED VENOUS Routine 05/12/2023 3:59 PM EDT [place] [facility], E/M 30-74 MINUTES Routine 05/12/2023 3:38 PM EDT Acute respiratory failure with hypoxia (CMS/[facility]) S/P CABG x 3 CAD in [place] artery XR CHEST 1 VIEW STAT 05/12/2023 [...] UNSOLICITED RESULTS Routine 05/12/2023 7:57 AM EDT [place] CABG, ARTERIAL, SINGLE 05/12/2023 6:51 AM EDT [...] APRN LAB BLOOD ORDERABLES Final Res ult Performing Organization Address City/State/[facility] Co de Phone Number [facility] [address] [place] [address] * (ABNORMAL) Comprehensive metabolic panel (05/16/2023 2:41 AM EDT) Glucose, Plasma 110(H) 74 - 99 mg/dL 05/16/2023 3:16 AM EDT [facility] BUN, Plasma 16 8 - 23 [...] ult [facility] [address] [place] [address] * (ABNORMAL) Hemogram (CBC) (05/16/2023 2:41 AM [...] 2:41 AM EDT 05/16/2023 2:48 AM EDT Rose Fields APRN LAB BLOOD ORDERABLES Final Res ult Performing Organization Address City/State/[facility] Co de Phone Number [facility] [address] [place] [address] * Magnesium, Plasma (05/15/2023 1:45 AM EDT) [facility] Magnesium, Plasma 2.3 1.9 - 2.4 mg/dL 05/15/2023 2:18 AM EDT [facility] Blood Venous blood specimen / Unknown Venipuncture / Unknown 05/15/2023 1:45 AM EDT 05/15/2023 1:49 AM EDT Olya Ghosh PEDIATRIC SPEECH LANGUAGE PATHOLOGIST, DNP LAB BLOOD ORDERABLE S Final Result Performing Organization Address City/[facility]/ZIP Co de Phone Number [facility] [address] [place] [address] * (ABNORMAL) Basic Metabolic Panel, Plasma (05/15/2023 1:45 AM EDT) Glucose, Plasma 111(H) 74 - 99 mg/dL 05/15/2023 2:18 AM EDT [facility] BUN, Plasma 19 8 - 23 mg/dL 05/15/2023 2:18 AM EDT [facility] Creatinine, Plasma 1.19 0.80 - 1.30 [...] 05/15/2023 1:49 AM EDT us Olya Ghosh PEDIATRIC SPEECH LANGUAGE PATHOLOGIST, DNP LAB BLOOD ORDERABLE S Final Result Performing Organization Address City/[facility]/ZIP Co de Phone Number [facility] [address] [place] [address] * (ABNORMAL) CBC W/O Differential (05/15/2023 1:45 AM EDT) WBC Count 10.91(H) 3.70 - 10.30 10*3/uL [...] 05/15/2023 1:49 AM EDT us Olya Ghosh PEDIATRIC SPEECH LANGUAGE PATHOLOGIST, DNP LAB BLOOD ORDERABLE S Final Result [facility] [address] [place] [address] * XR Chest 1 View (05/15/2023 1:40 [...] 05/14/2023. FINDINGS: Interval removal of right IJ [place]am[place] catheter and mediastinal drains. Consolidation within the left lung apex. Right lung is clear. Enlarged heart and mediastinal silhouette. Procedure Note Larry Henriquez MD - 05/15/2023 CLINICAL INDICATION: eval lung vergara TECHNIQUE: XR CHEST 1 VIEW COMPARISON: 05/14/2023. FINDINGS: Interval removal of right IJ [place]am[place] catheter and mediastinal drains.Consolidation within the left [...] Larry Henriquez MD on 05/15/2023 10:18 AM Olya Ghosh PEDIATRIC SPEECH LANGUAGE PATHOLOGIST, DNP IMG XR PROCEDURES F inal Result * (ABNORMAL) POCT glucose meter (05/14/2023 8:36 PM EDT) POCT Glucose 120(H) 74 - 99 mg/dL 05/14/2023 8:37 PM EDT [facility] Comment:Accuracy of a glucos [...] for testing. Comment 05/14/2023 8:37 PM EDT [facility] Valve Grinder ID Larry Vann 8:37 PM EDT [facility] Device ID [id number] 05/14/2023 8:37 PM EDT [facility] Specimen Type POC Capillary 05/14/2023 8:37 PM EDT [facility] Blood Capillary blood specimen / Unknown 05/14/2023 8:36 PM EDT 05/14/2023 8:37 PM EDT Pablo Mckeon MD LAB POINT OF CARE TE ST DOCKED DEVICE UNSOLICITED RESULTS Final Result Performing Organization Address City/State/[facility] Co de Phone Number [facility] [address] [place] [address] * (ABNORMAL) POCT glucose meter (05/14/2023 4:43 PM EDT) [facility] POCT Glucose 124(H) 74 - 99 mg/dL [...] 05/14/2023 4:44 PM EDT [facility] Valve Grinder ID Marianela Taylor 05/14/2023 4:44 PM EDT [facility] Device ID [id number] 05/14/2023 4:44 PM EDT [facility] Specimen Type POC Capillary 05/14/2023 4:44 PM EDT [facility] Blood Capillary blood specimen / Unknown 05/14/2023 4:43 PM EDT 05/14/2023 4:44 PM EDT us Pablo Mckeon MD LAB POINT OF CARE TE ST DOCKED DEVICE UNSOLICITED RESULTS Final Result Performing Organization Address City/[facility] Co de Phone Number [facility] [address] [place] [address] * Potassium level repeated 2 hours after the total replacement is complete (05/14/2023 1:12 PM EDT) [facility] Potassium, Plasma 3.8 3.7 - 4.8 mmol/L 05/14/2023 1:42 PM EDT [facility] Blood Venous blood specimen / Unknown Venipuncture / Unknown 05/14/2023 1:12 PM EDT 05/14/2023 1:16 PM EDT us Pablo Mckeon MD LAB BLOOD ORDERABLES Final R esult Performing Organization Address [facility] de Phone Number [facility] [address] [place] [address] * (ABNORMAL) POCT glucose meter (05/14/2023 12:07 PM EDT) [facility] POCT Glucose 113(H) 74 - 99 mg/dL [...] Comment 05/14/2023 12:09 PM EDT [facility] Valve Grinder ID Marianela Taylor 05/14/2023 12:09 PM EDT [facility] Device ID [id number] 05/14/2023 12:09 PM EDT [facility] Specimen Type POC Capillary 05/14/2023 12:09 PM EDT [facility] Blood Capillary blood specimen / Unknown 05/14/2023 12:07 PM EDT 05/14/2023 12:09 PM EDT us Pablo Mckeon MD LAB POINT OF CARE TE ST DOCKED DEVICE UNSOLICITED RESULTS Final Result Performing Organization Address [facility] Co de Phone Number [facility] [address] [place] [address] * (ABNORMAL) POCT glucose meter (05/14/2023 7:53 [...] 05/14/2023 7:54 AM EDT [facility] Valve Grinder ID Marianela Taylor 05/14/2023 7:54 AM EDT [facility] Device ID [id number] 05/14/2023 7:54 AM EDT [facility] Specimen Type POC Capillary 05/14/2023 7:54 AM EDT [facility] Blood Capillary blood specimen / Unknown 05/14/2023 7:53 AM EDT 05/14/2023 7:54 AM EDT Pablo Mckeon MD LAB POINT OF CARE TE ST DOCKED DEVICE UNSOLICITED RESULTS Final Result [facility] [address] [place] [address] * XR Chest 1 View (05/14/2023 2:43 [...] Interval removal of the right IJ approach [place]-Fam[place] catheter, sheath remains in place. Thoracic tubes in similar position. Decreased left lung basal opacities. The right lung is relatively clear. Procedure Note Tariq Murillo MD - 05/14/2023 CLINICAL INDICATION: Post-Op Cardiac Surgery TECHNIQUE: XR CHEST 1 VIEW COMPARISON: 21 hours prior FINDINGS: Interval removal of the right IJ approach [place]-Fam[place] catheter, sheathremains in place. Thoracic tubes in [...] - 2.4 mg/dL 05/14/2023 4:23 AM EDT [facility] Blood Venous blood specimen / Unknown Venipuncture / Unknown 05/14/2023 1:07 AM EDT 05/14/2023 1:18 AM EDT Pablo Mckeon MD LAB BLOOD ORDERABLES Final R esult Performing Organization Address City/[facility] Co de Phone Number [facility] [address] [place] [address] * Phosphorus (05/14/2023 1:07 AM EDT) Phosphorus, Plasma 2.7 2.5 - 4.5 mg/dL 05/14/2023 4:23 AM EDT [facility] Blood Venous blood specimen / Unknown Venipuncture / Unknown 05/14/2023 1:07 AM EDT 05/14/2023 1:18 AM EDT Pablo Mckeon MD LAB BLOOD ORDERABLES Final R esult Performing Organization Address City/[facility]/ZIP Co de Phone Number [facility] [address] [place] [address] * (ABNORMAL) CBC (05/14/2023 1:07 AM EDT) [...] MD LAB BLOOD ORDERABLES Final R esult [facility] [address] [place] [address] * (ABNORMAL) Blood gas, arterial (05/14/2023 1:07 [...] ORDERABLES Final R esult Performing Organization Address City/[facility]/ZIP Co de Phone Number [facility] [address] [place] [address] * (ABNORMAL) Basic metabolic panel (05/14/2023 1:07 [...] ORDERABLES Final R esult Performing Organization Address City/[facility]/ZIP Co de Phone Number [facility] [address] [place] [address] * (ABNORMAL) POCT glucose meter (05/13/2023 4:45 PM EDT) [facility] POCT Glucose 142(H) 74 - 99 mg/dL [...] for testing. Comment 05/13/2023 4:46 PM EDT [facility] Valve Grinder ID Mere Han 05/13/2023 4:46 PM EDT [facility] Device ID [id number] 05/13/2023 4:46 PM EDT [facility] Specimen Type POC Arterial 05/13/2023 4:46 PM EDT [facility] Blood Arterial blood specimen / Unknown 05/13/2023 4:45 PM EDT 05/13/2023 4:46 PM EDT Pablo Mckeon MD LAB POINT OF CARE TE ST DOCKED DEVICE UNSOLICITED RESULTS Final Result [facility] [address] [place] [address] * (ABNORMAL) POCT glucose meter (05/13/2023 12:02 PM EDT) [facility] POCT Glucose 149(H) 74 - 99 mg/dL [...] for testing. Comment 05/13/2023 12:03 PM EDT [facility] Valve Grinder ID Mere Han 05/13/2023 12:03 PM EDT [facility] Device ID [id number] 05/13/2023 12:03 PM EDT [facility] Specimen Type POC Arterial 05/13/2023 12:03 PM EDT [facility] Blood Arterial blood specimen / Unknown 05/13/2023 12:02 PM EDT 05/13/2023 12:03 PM EDT Pablo Mckeon MD LAB POINT OF CARE TE ST DOCKED DEVICE UNSOLICITED RESULTS Final Result [facility] [address] [place] [address] * (ABNORMAL) CBC W/O Differential (05/13/2023 9:13 [...] LAB HEMATOLOGY METHOD 05/13/2023 9:36 AM EDT [facility] Blood Venous blood specimen / Unknown Venipuncture / Unknown 05/13/2023 9:13 AM EDT 05/13/2023 9:25 AM EDT Pablo Mckeon MD LAB BLOOD ORDERABLES Final R esult Performing Organization Address [facility] Co de Phone Number [facility] [address] [place] [address] * (ABNORMAL) Magnesium (05/13/2023 9:13 AM EDT) Magnesium, Plasma 2.7(H) 1.9 - 2.4 mg/dL 05/13/2023 9:52 AM EDT [facility] Blood Venous blood specimen / Unknown Venipuncture / Unknown 05/13/2023 9:13 AM EDT 05/13/2023 9:25 AM EDT Pablo Mckeon MD LAB BLOOD ORDERABLES Final R esult Performing Organization Address City/[facility] de Phone Number [facility] [address] [place] [address] * (ABNORMAL) Renal function panel (05/13/2023 9:13 [...] - 107 mmol/L 05/13/2023 9:52 AM EDT [facility] CO2, Plasma 20(L) 22 - 29 [...] esult [facility] [address] [place] [address] * (ABNORMAL) POCT glucose meter (05/13/2023 9:05 [...] for testing. Comment 05/13/2023 9:06 AM EDT [facility] Valve Grinder ID Mere Han 05/13/2023 9:06 AM EDT [facility] Device ID [id number] 05/13/2023 9:06 AM EDT [facility] Specimen Type POC Arterial 05/13/2023 9:06 AM EDT [facility] Blood Arterial blood specimen / Unknown 05/13/2023 9:05 AM EDT 05/13/2023 9:06 AM EDT Pablo Mckeon MD LAB POINT OF CARE TE ST DOCKED DEVICE UNSOLICITED RESULTS Final Result Performing Organization Address City/[facility] Co de Phone Number [facility] [address] [place] [address] * (ABNORMAL) POCT glucose meter (05/13/2023 8:33 AM EDT) POCT Glucose 69(L) 74 - 99 mg/dL 05/13/2023 8:34 AM EDT [facility] Comment:Accuracy of [...] for testing. Comment 05/13/2023 8:34 AM EDT [facility] Valve Grinder ID Mere Han 05/13/2023 8:34 AM EDT [facility] Device ID [id number] 05/13/2023 8:34 AM EDT [facility] Specimen Type POC Capillary 05/13/2023 8:34 AM EDT [facility] Blood Capillary blood specimen / Unknown 05/13/2023 8:33 AM EDT 05/13/2023 8:34 AM EDT us Pablo Mckeon MD LAB POINT OF CARE TE ST DOCKED DEVICE UNSOLICITED RESULTS Final Result Performing Organization Address City/[facility] Co de Phone Number [facility] [address] [place] [address] * (ABNORMAL) POCT glucose meter (05/13/2023 8:32 AM EDT) POCT Glucose 67(L) 74 - 99 mg/dL [...] Comment 05/13/2023 8:33 AM EDT [facility] Valve Grinder ID Mere Han 05/13/2023 8:33 AM EDT [facility] Device ID [id number] 05/13/2023 8:33 AM EDT [facility] Specimen Type POC Capillary 05/13/2023 8:33 AM EDT [facility] Blood Capillary blood specimen / Unknown 05/13/2023 8:32 AM EDT 05/13/2023 8:33 AM EDT Pablo Mckeon MD LAB POINT OF CARE TE ST DOCKED DEVICE UNSOLICITED RESULTS Final Result Performing Organization Address City/State/[facility] Co de Phone Number [facility] [address] [place] [address] * (ABNORMAL) POCT glucose meter (05/13/2023 6:36 AM EDT) [facility] POCT Glucose 183(H) 74 - 99 mg/dL 05/13/2023 6:38 AM EDT [facility] Comment:Accuracy of a [...] for testing. Comment 05/13/2023 6:38 AM EDT [facility] Valve Grinder ID Abigail Kaplan 05/13/2023 6:38 AM EDT [facility] Device ID [id number] 05/13/2023 6:38 AM EDT [facility] Specimen Type POC Arterial 05/13/2023 6:38 AM EDT [facility] Blood Arterial blood specimen / Unknown 05/13/2023 6:36 AM EDT 05/13/2023 6:38 AM EDT us Pablo Mckeon MD LAB POINT OF CARE TE ST DOCKED DEVICE UNSOLICITED RESULTS Final Result [facility] [address] [place] [address] * XR Chest 1 View (05/13/2023 5:44 [...] Adi Mendoza MD on 05/13/2023 7:37 AM us Andrea ROCHA IMG XR PROCEDURES Final Result * ECG Adult - POD 1 (05/13/2023 4:13 AM EDT) EKG DIAGNOSIS CLASS Borderline Abnormal MUSE ECG Ventricular Rate 88 BPM MUSE ECG Atrial Rate 88 BPM MUSE ECG [place] Interval 150 ms MUSE ECG QRSD Interval 84 ms MUSE ECG QT Interval 364 ms MUSE ECG QTC Interval 440 ms MUSE ECG P [place] 3 degrees MUSE ECG R [place] -2 degrees MUSE ECG T Wave [place] 67 degrees MUSE ECG Diagnosis Sinus rhythm MUSE ECG Diagnosis with frequent MUSE ECG Diagnosis premature ventricular complexes MUSE ECG Diagnosis Otherwise normal ECG MUSE ECG Diagnosis Confirmed by Marco De Guzman ([id number]) on 05/13/2023 11:49:32 AM MUSE ECG 05/13/2023 4:13 AM EDT 05/13/2023 11:49 AM EDT us Andrea ROCHA ECG ORDERABLES Final Result Performing Organization Address City/[facility] Co de Phone Number MUSE ECG * (ABNORMAL) POCT glucose meter (05/13/2023 2:01 AM EDT) [facility] POCT Glucose 138(H) 74 - 99 mg/dL [...] for testing. Comment 05/13/2023 2:02 AM EDT [facility] Valve Grinder ID Abigail Kaplan 05/13/2023 2:02 AM EDT [facility] Device ID [id number] 05/13/2023 2:02 AM EDT [facility] Specimen Type POC Arterial 05/13/2023 2:02 AM EDT [facility] Blood Arterial blood specimen / Unknown 05/13/2023 2:01 AM EDT 05/13/2023 2:02 AM EDT us Pablo Mckeon MD LAB POINT OF CARE TE ST DOCKED DEVICE UNSOLICITED RESULTS Final Result [facility] [address] [place] [address] * (ABNORMAL) Magnesium (05/13/2023 12:17 AM EDT) Pathologist [facility] Magnesium, Plasma 2.8(H) 1.9 - 2.4 mg/dL 05/13/2023 1:50 AM EDT [facility] Blood Venous blood specimen / Unknown Venipuncture / Unknown 05/13/2023 12:17 AM EDT 05/13/2023 12:25 AM EDT Pablo Mckeon MD LAB BLOOD ORDERABLES Final R esult Performing Organization Address City/[facility] de Phone Number [facility] [address] [place] [address] * Phosphorus (05/13/2023 12:17 AM EDT) Phosphorus, Plasma 3.6 2.5 - 4.5 mg/dL 05/13/2023 1:50 AM EDT [facility] Blood Venous blood specimen / Unknown Venipuncture / Unknown 05/13/2023 12:17 AM EDT 05/13/2023 12:25 AM EDT Pablo Mckeon MD LAB BLOOD ORDERABLES Final R esult Performing Organization Address City/[facility] de Phone Number [facility] [address] [place] [address] * (ABNORMAL) Blood gas panel, arterial (05/13/2023 12:17 AM EDT) pH, Arterial 7.32 7.31 - 7.42 LAB HEMATOLOGY METHOD 05/13/2023 12:37 AM EDT [facility] pCO2, Arterial 44 35 - 48 mmHg LAB HEMATOLOGY METHOD 05/13/2023 12:37 AM EDT [facility] pO2, Arterial 89 >70 mmHg LAB [...] ORDERABLES Final R esult Performing Organization Address City/[facility] de Phone Number [facility] [address] [place] [address] * (ABNORMAL) Potassium, Plasma (05/13/2023 12:17 AM EDT) Potassium, Plasma 5.3(H) 3.7 - 4.8 mmol/L 05/13/2023 12:47 AM EDT [facility] Blood Venous blood specimen / Unknown Venipuncture / Unknown 05/13/2023 12:17 AM EDT 05/13/2023 12:25 AM EDT us Andrea ROCHA LAB BLOOD ORDERABLES Final Resu lt Performing Organization Address City/[facility]/ZIP Co de Phone Number [facility] [address] [place] [address] * (ABNORMAL) Hematocrit (05/13/2023 12:17 AM EDT) HCT 35.4(L) 40.0 - 51.0 % LAB HEMATOLOGY METHOD 05/13/2023 12:39 AM EDT [facility] Blood Venous blood specimen / Unknown Venipuncture / Unknown 05/13/2023 12:17 AM EDT 05/13/2023 12:25 AM EDT Andrea ROCHA LAB BLOOD ORDERABLES Final Resu lt Performing Organization Address [facility] de Phone Number [facility] [address] [place] [address] * (ABNORMAL) Hemoglobin (05/13/2023 12:17 AM EDT) HGB 11.2(L) 13.7 - 17.5 g/dL LAB HEMATOLOGY METHOD 05/13/2023 12:39 AM EDT [facility] Blood Venous blood specimen / Unknown Venipuncture / Unknown 05/13/2023 12:17 AM EDT 05/13/2023 12:25 AM EDT Andrea ROCHA LAB BLOOD ORDERABLES Final Resu lt Performing Organization Address [facility] de Phone Number [facility] [address] [place] [address] * [place] [facility]DL 30 MIN, [place] [facility] ADDL 30 MIN (05/12/2023 11:50 [...] lt [facility] [address] [place] [address] * (ABNORMAL) Basic metabolic panel (05/12/2023 8:09 [...] 8:09 PM EDT 05/12/2023 8:23 PM EDT Andrea ROCHA LAB BLOOD ORDERABLES Final Resu lt [facility] [address] [place] [address] * (ABNORMAL) CBC (05/12/2023 8:09 PM EDT) [...] LAB HEMATOLOGY METHOD 05/12/2023 8:30 PM EDT [facility] Blood Venous blood specimen / Unknown Venipuncture / Unknown 05/12/2023 8:09 PM EDT 05/12/2023 8:24 PM EDT us Andrea ROCHA LAB BLOOD ORDERABLES Final Resu lt Performing Organization Address [facility] Co de Phone Number [facility] LAB [address] [place] [address] * (ABNORMAL) Potassium, Plasma (05/12/2023 8:09 PM EDT) Potassium, Plasma 5.5(H) 3.7 - 4.8 mmol/L 05/12/2023 9:14 PM EDT [facility] Blood Venous blood specimen / Unknown Venipuncture / Unknown 05/12/2023 8:09 PM EDT 05/12/2023 8:23 PM EDT us Andrea ROCHA LAB BLOOD ORDERABLES Final Resu lt Performing Organization Address [facility] de Phone Number [facility] [address] [place] [address] * (ABNORMAL) Hematocrit (05/12/2023 8:09 PM EDT) HCT 35.4(L) 40.0 - 51.0 % LAB HEMATOLOGY METHOD 05/12/2023 8:30 PM EDT [facility] Blood Venous blood specimen / Unknown Venipuncture / Unknown 05/12/2023 8:09 PM EDT 05/12/2023 8:24 PM EDT us Andrea ROCHA LAB BLOOD ORDERABLES Final Resu lt Performing Organization Address City/[facility] de Phone Number [facility] [address] [place] [address] * (ABNORMAL) Hemoglobin (05/12/2023 8:09 PM EDT) HGB 11.2(L) 13.7 - 17.5 g/dL LAB HEMATOLOGY METHOD 05/12/2023 8:30 PM EDT [facility] Blood Venous blood specimen / Unknown Venipuncture / Unknown 05/12/2023 8:09 PM EDT 05/12/2023 8:24 PM EDT us Andrea ROCHA LAB BLOOD ORDERABLES Final Resu lt [facility] [address] [place] [address] * (ABNORMAL) Blood gas, arterial (05/12/2023 8:09 PM EDT) pH, Arterial 7.33 7.31 - 7.42 LAB [...] lt [facility] [address] [place] [address] * (ABNORMAL) Blood gas panel, arterial (05/12/2023 [...] esult [facility] [address] [place] [address] * (ABNORMAL) Blood gas, arterial (05/12/2023 4:01 [...] lt [facility] [address] [place] [address] * (ABNORMAL) Blood gas panel with oximetry, [...] APRN LAB BLOOD ORDERABLES Evelyn l Result Performing Organization Address City/State/[facility] Co de Phone Number [facility] [address] [place] [address] * [place] [facility], E/M 30-74 MINUTES (05/12/2023 3:38 [...] above the darling. Right internal jugular approach [place] catheter with tip of the main pulmonary [...] cm above the darling. Right internaljugular approach [place] catheter with tip of the main pulmonary [...] Miri Shah MD on 05/12/2023 4:22 PM Andrea ROCHA IMG XR PROCEDURES Final Result * Monico auris Surveillance by PCR (05/12/2023 2:58 PM EDT) Monico auris PCR Result Not Detected Not Detected 05/13/2023 2:54 PM EDT [facility] Swab (Axilla and Groin) Non-blood Collection / Unknown 05/12/2023 2:58 PM EDT 05/12/2023 3:29 PM EDT Narrative [facility] - 05/13/2023 2:54 PM EDT This PCR assay was developed and its performance characteristics determined by [facility] as appropriate for clinical purposes. This assay has not been cleared or approved by the FDA, but is performed in a CLIA regulated laboratory that is qualified to perform high-complexity testing. This PCR assay was developed and its performance characteristics determined by [facility] as appropriate for clinical purposes. This assay has not been cleared or approved by the FDA, but is performed in a CLIA regulated laboratory that is qualified to perform high-complexity testing. Andrea ROCHA LAB MICROBIOLOGY - [facility] TJ KALYAN Final Result [facility] [address] [place] [id number] * Multi Drug Resistance Test (05/12/2023 2:58 PM EDT) Culture No growth at day 1 05/13/2023 11:20 AM EDT [facility] Swab (Nares and Jessica Rectal) Non-blood Collection / Unknown 05/12/2023 2:58 PM EDT 05/12/2023 3:29 PM EDT Andrea ROCHA LAB MICROBIOLOGY - [facility] NOLBERTO BIGGS Final Result [facility] [address] [place] [address] * (ABNORMAL) Blood gas, arterial (05/12/2023 2:58 [...] ORDERABLES Final Resu lt Performing Organization Address [facility] Co de Phone Number [facility] [address] [place] [address] * Potassium, Plasma (05/12/2023 2:57 PM EDT) Potassium, Plasma 3.7 3.7 - 4.8 mmol/L 05/12/2023 3:45 PM EDT [facility] Blood Venous blood specimen / Unknown Venipuncture / Unknown 05/12/2023 2:57 PM EDT 05/12/2023 3:07 PM EDT Andrea ROCHA LAB BLOOD ORDERABLES Final Resu lt Performing Organization Address [facility] de Phone Number [facility] [address] [place] [address] * (ABNORMAL) Hematocrit (05/12/2023 2:57 PM EDT) HCT 34.0(L) 40.0 - 51.0 % LAB HEMATOLOGY METHOD 05/12/2023 3:15 PM EDT [facility] Blood Venous blood specimen / Unknown Venipuncture / Unknown 05/12/2023 2:57 PM EDT 05/12/2023 3:06 PM EDT us Andrea ROCHA LAB BLOOD ORDERABLES Final Resu lt Performing Organization Address City/[facility] Co de Phone Number [facility] [address] [place] [address] * (ABNORMAL) Hemoglobin (05/12/2023 2:57 PM EDT) Pathologist [facility] HGB 10.7(L) 13.7 - 17.5 g/dL LAB HEMATOLOGY METHOD 05/12/2023 3:15 PM EDT [facility] Blood Venous blood specimen / Unknown Venipuncture / Unknown 05/12/2023 2:57 PM EDT 05/12/2023 3:06 PM EDT Andrea ROCHA LAB BLOOD ORDERABLES Final Resu lt Performing Organization Address City/[facility]/ZIP Co de Phone Number [facility] [address] [place] [address] * APTT (05/12/2023 2:57 PM EDT) Pathologist [facility] aPTT 32 25 - 35 sec LAB COAGULATION METHOD 05/12/2023 4:01 PM EDT [facility] Blood Venous blood specimen / Unknown Venipuncture / Unknown 05/12/2023 2:57 PM EDT 05/12/2023 3:07 PM EDT Andrea ROCHA LAB BLOOD ORDERABLES Final Resu lt Performing Organization Address City/[facility]/ZIP Co de Phone Number [facility] [address] [place] [address] * (ABNORMAL) Protime-INR (05/12/2023 2:57 PM EDT) Pathologist [facility] Prothrombin Time 16.6(H) 12.0 - 14.3 sec LAB COAGULATION METHOD 05/12/2023 3:59 PM EDT [facility] INR 1.4(H) 0.9 - 1.1 LAB COAGULATION METHOD 05/12/2023 3:59 PM EDT [facility] Blood Venous blood specimen / Unknown Venipuncture / Unknown 05/12/2023 2:57 PM EDT 05/12/2023 3:07 PM EDT Narrative [facility] - 05/12/2023 3:59 PM EDT OPTIMAL INR RANGES FOR PATIENT ON ORAL ANTICOAGULANT THERAPY Prevention of venous thromboembolism ?INR 2.0 to 3.0 In patients with heart disease: Atrial fibrillation ?INR 2.0 to 3.0 Valvular heart disease ? INR 2.0 to 3.0 Tissue heart valves ?INR 2.0 to 3.0 Mechanical prosthetic valves ? INR 2.5 to 3.5 Prevention of recurrent [place] ? INR 2.5 to 3.5 Andrea ROCHA LAB BLOOD ORDERABLES Final Resu lt Performing Organization Address [facility] de Phone Number HEALTHCARE [facility] [address] [place] [address] * (ABNORMAL) Phosphorus (05/12/2023 2:57 PM EDT) Phosphorus, Plasma 1.3(L) 2.5 - 4.5 mg/dL 05/12/2023 3:45 PM EDT [facility]ALTH[facility] Blood Venous blood specimen / Unknown Venipuncture / Unknown 05/12/2023 2:57 PM EDT 05/12/2023 3:07 PM EDT Andrea ROCHA LAB BLOOD ORDERABLES Final Resu lt Performing Organization Address [facility] de Phone Number HEALTHCARE LAB [address] [place] [address] * (ABNORMAL) Magnesium (05/12/2023 2:57 PM EDT) Magnesium, Plasma 3.5(H) 1.9 - 2.4 mg/dL 05/12/2023 3:45 PM EDT [facility] Blood Venous blood specimen / Unknown Venipuncture / Unknown 05/12/2023 2:57 PM EDT 05/12/2023 3:07 PM EDT Andrea ROCHA LAB BLOOD ORDERABLES Final Resu lt Performing Organization Address [facility] de Phone Number [facility] [address] [place] [address] * (ABNORMAL) Basic metabolic panel (05/12/2023 2:57 [...] lt [facility] [address] [place] [address] * (ABNORMAL) CBC (05/12/2023 2:57 PM EDT) [...] 2:57 PM EDT 05/12/2023 3:06 PM EDT us Andrea ROCHA LAB BLOOD ORDERABLES Final Resu lt [facility] [address] [place] [address] * ECG Adult - Upon Admissoin to CVICU (05/12/2023 2:42 PM EDT) EKG DIAGNOSIS CLASS Abnormal MUSE ECG Ventricular Rate 69 BPM MUSE ECG Atrial Rate 69 BPM MUSE ECG [place] Interval 204 ms MUSE ECG QRSD Interval 96 ms MUSE ECG QT Interval 436 ms MUSE ECG QTC Interval 467 ms MUSE ECG P [place] 65 degrees MUSE ECG R [place] 25 degrees MUSE ECG T Wave [place] 98 degrees MUSE ECG Diagnosis Normal sinus rhythm MUSE ECG Diagnosis Nonspecific ST and T wave abnormality MUSE ECG Diagnosis Confirmed by Juan Thompson ([id number]) on 05/12/2023 3:51:15 PM MUSE ECG 05/12/2023 2:42 PM EDT 05/12/2023 3:51 PM EDT us Andrea ROCHA ECG ORDERABLES Final Result MUSE ECG * (ABNORMAL) POCT arterial blood gas gem (05/12/2023 1:18 PM EDT) pH, Arterial 7.43(H) 7.31 - 7.42 05/12/2023 1:20 PM EDT [facility] pCO2, Arterial 33(L) 35 - 48 mm Hg 05/12/2023 1:20 PM EDT [facility] pO2, Arterial 293 >70 mm Hg 05/12/2023 1:20 PM EDT [facility] SO2, Arterial 100(H) 94 - 98 % 05/12/2023 1:20 PM EDT [facility] Base Excess, Arterial -2.1(L) -2 - 3 mmol/L 05/12/2023 1:20 PM EDT [facility] HCO3, Arterial 21.9(L) 22 - 26 mmol/L 05/12/2023 1:20 PM EDT [facility] Total Hemoglobin, Arterial, Whole Blood 8.1(L) [...] EDT [facility] Valve Grinder ID Alexa Tompkins 05/12/2023 1:20 PM EDT [facility] Blood, Arterial Whole blood specimen / Unknown 05/12/2023 1:18 PM EDT 05/12/2023 1:20 PM EDT Pablo Mckeon MD LAB POINT OF CARE TE ST DOCKED DEVICE UNSOLICITED RESULTS Final Result Performing Organization Address City/State/[facility] Co de Phone Number HEALTHCARE LAB [address] [place] [address] * POCT ACT (05/12/2023 1:15 PM EDT) ACT+ (High Range) 96 68 - 600 seconds 05/13/2023 9:26 PM EDT [facility]ALTH[facility]ARE LAB Valve Grinder ID Alexa Tompkins 05/13/2023 9:26 PM EDT HEALTHCARE LAB ACT Device ID [id number] 05/13/2023 9:26 PM EDT HEALTH[facility]ARE LAB Comment 05/13/2023 9:26 PM EDT HEALTHCARE LAB Comment: ACT performed by staff [...] [facility] [address] [place] [id number] * (ABNORMAL) POCT arterial blood gas gem (05/12/2023 12:33 PM EDT) pH, Arterial 7.35 7.31 - 7.42 05/12/2023 [...] - 1.6 mmol/L 05/12/2023 12:34 PM EDT HEALTH[facility]ARE LAB Body Temperature 37.0 Celsius 05/12/2023 12:34 [...] >70 mm Hg 05/12/2023 12:34 PM EDT HEALTH[facility]ARE LAB Valve Grinder ID Ash Campos 05/12/2023 12:34 PM EDT [facility]ALTH[facility]ARE LAB Blood, Arterial Whole blood specimen / Unknown 05/12/2023 12:33 PM EDT 05/12/2023 12:34 PM EDT Pablo Mckeon MD LAB POINT OF CARE TE ST DOCKED DEVICE UNSOLICITED RESULTS Final Result Performing Organization Address City/State/[facility] Co de Phone Number HEALTHCARE LAB [address] [place] [address] * (ABNORMAL) POCT ACT (05/12/2023 12:30 PM EDT) [facility] Signature ACT+ (High Range) >600(H) 68 - 600 seconds 05/13/2023 9:26 PM EDT [facility] Valve Grinder ID Ash Campos 05/13/2023 9:26 PM EDT [facility] ACT Device ID [id number] 05/13/2023 9:26 PM EDT HEALTHCARE LAB Whole Blood Venous blood specimen / Unknown 05/12/2023 12:30 PM EDT 05/13/2023 9:26 PM EDT Pablo Mckeon MD LAB POINT OF CARE TE ST DOCKED DEVICE UNSOLICITED RESULTS Final Result [facility] [address] [place] [address] * (ABNORMAL) POCT arterial blood gas gem [...] Temperature 37.0 Celsius 05/12/2023 12:08 PM EDT [facility] pH, Temp Corrected, Arterial 7.42 7.31 - 7.42 05/12/2023 12:08 PM EDT HEALTH[facility]ARE LAB pCO2, Temp Corrected, Arterial 34(L) 35 - 48 mm Hg 05/12/2023 12:08 PM EDT [facility]ALTH[facility]ARE LAB pO2, Temp Corrected, Arterial 240 >70 mm Hg 05/12/2023 12:08 PM EDT HEALTHCARE LAB Valve Grinder ID Ash Campos 05/12/2023 12:08 PM EDT HEALTHCARE LAB Blood, Arterial Whole blood specimen / Unknown 05/12/2023 12:06 PM EDT 05/12/2023 12:08 PM EDT Pablo Mckeon MD LAB POINT OF CARE TE ST DOCKED DEVICE UNSOLICITED RESULTS Final Result Performing Organization Address [facility] de Phone Number HEALTHCARE LAB [address] [place] [address] * (ABNORMAL) POCT ACT (05/12/2023 12:01 PM EDT) ACT+ (High Range) >600(H) 68 - 600 seconds 05/13/2023 9:26 PM EDT HEALTHCARE LAB Valve Grinder ID Ash Campos 05/13/2023 9:26 PM EDT HEALTHCARE LAB ACT Device ID [id number] 05/13/2023 9:26 PM EDT HEALTH[facility]ARE LAB Whole Blood Venous blood specimen / Unknown 05/12/2023 12:01 PM EDT 05/13/2023 9:26 PM EDT us Pablo Mckeon MD LAB POINT OF CARE TE ST DOCKED DEVICE UNSOLICITED RESULTS Final Result Performing Organization Address City/[facility] Co de Phone Number [facility] [address] [place] [address] * (ABNORMAL) POCT arterial blood gas gem (05/12/2023 11:33 AM EDT) pH, Arterial 7.30(L) 7.31 - 7.42 05/12/2023 11:34 AM EDT HEALTHCARE LAB pCO2, Arterial 46 35 - 48 mm Hg 05/12/2023 11:34 AM [facility] pO2, Arterial 304 >70 mm Hg 05/12/2023 11:34 AM [facility] SO2, Arterial 100(H) 94 - 98 % 05/12/2023 11:34 AM [facility] Base Excess, Arterial -3.6(L) -2 - 3 mmol/L 05/12/2023 11:34 AM [facility] HCO3, Arterial 22.6 22 - 26 mmol/L 05/12/2023 11:34 AM [facility] Total Hemoglobin, Arterial, Whole Blood 7.0(L) 13.7 - 17.5 g/dL 05/12/2023 11:34 AM [facility] Hematocrit, Arterial 21.0(L) 40.0 - 51.0 % 05/12/2023 11:34 AM [facility] Sodium, Arterial 138 136 - 145 mmol/L 05/12/2023 11:34 AM [facility] Potassium, Arterial 3.8 3.6 - 4.9 mmol/L 05/12/2023 11:34 AM [facility] Chloride, Whole Blood 109(H) 97 - 107 mmol/L 05/12/2023 11:34 AM [facility] Glucose, Arterial 326(H) 74 - 99 mg/dL 05/12/2023 11:34 AM [facility] Ionized Calcium, Arterial 4.9 4.6 - 5.1 mg/dL 05/12/2023 11:34 AM [facility] Lactate, Arterial 2.0(H) 0.5 - 1.6 mmol/L 05/12/2023 11:34 AM [facility] Body Temperature 37.0 Celsius 05/12/2023 11:34 AM [facility] pH, Temp Corrected, Arterial 7.30(L) 7.31 - 7.42 05/12/2023 11:34 AM [facility] pCO2, Temp Corrected, Arterial 46 35 - 48 mm Hg 05/12/2023 11:34 AM [facility] pO2, Temp Corrected, Arterial 304 >70 mm Hg 05/12/2023 11:34 AM [facility] Valve Grinder ID Short, Alexa 05/12/2023 11:34 AM EDT HEALTHCARE LAB Blood, Arterial Whole blood specimen / Unknown 05/12/2023 11:33 AM EDT 05/12/2023 11:34 AM EDT Pablo Mckeon MD LAB POINT OF CARE TE ST DOCKED DEVICE UNSOLICITED RESULTS Final Result Performing Organization Address City/[facility]/ZIP Co de Phone Number HEALTHCARE LAB [address] [place] [address] * (ABNORMAL) POCT ACT (05/12/2023 11:31 AM EDT) ACT+ (High Range) >600(H) 68 - 600 seconds 05/13/2023 9:26 PM EDT HEALTHCARE LAB Valve Grinder ID Alexa Tompkins 05/13/2023 9:26 PM EDT HEALTHCARE LAB ACT Device ID [id number] 05/13/2023 9:26 PM EDT HEALTH[facility]ARE LAB Whole Blood Venous blood specimen / Unknown 05/12/2023 11:31 AM EDT 05/13/2023 9:26 PM EDT Pablo Mckeon MD LAB POINT OF CARE TE ST DOCKED DEVICE UNSOLICITED RESULTS Final Result Performing Organization Address [facility] de Phone Number HEALTH[facility]ARE LAB [address] [place] [address] * (ABNORMAL) POCT arterial blood gas gem (05/12/2023 11:07 AM EDT) pH, Arterial 7.33 7.31 - 7.42 05/12/2023 11:08 AM EDT [facility]ALTH[facility]ARE LAB pCO2, Arterial 46 35 - 48 mm Hg 05/12/2023 11:08 AM EDT [facility]ALTH[facility]ARE LAB pO2, Arterial 371 >70 mm Hg 05/12/2023 11:08 AM EDT [facility]ALTH[facility]ARE LAB SO2, Arterial 100(H) 94 - 98 % 05/12/2023 11:08 AM EDT [facility] Base Excess, Arterial -1.5 -2 - 3 mmol/L 05/12/2023 11:08 AM EDT HEALTHCARE LAB HCO3, Arterial 24.3 22 - 26 mmol/L 05/12/2023 11:08 AM EDT [facility] Total Hemoglobin, Arterial, Whole Blood 6.6(L) 13.7 - 17.5 g/dL 05/12/2023 11:08 AM EDT [facility] Hematocrit, Arterial 20.0(L) 40.0 - 51.0 % 05/12/2023 11:08 AM EDT [facility] Sodium, Arterial 136 136 - 145 mmol/L 05/12/2023 11:08 AM EDT [facility] Potassium, Arterial 4.1 3.6 - 4.9 mmol/L 05/12/2023 11:08 AM EDT [facility] Chloride, Whole Blood 109(H) 97 - 107 mmol/L 05/12/2023 11:08 AM EDT [facility] Glucose, Arterial 317(H) 74 - 99 mg/dL 05/12/2023 11:08 AM EDT [facility] Ionized Calcium, Arterial 4.7 4.6 - 5.1 mg/dL 05/12/2023 11:08 AM EDT [facility] Lactate, Arterial 2.1(H) 0.5 - 1.6 mmol/L 05/12/2023 11:08 AM EDT [facility] Body Temperature 37.0 Celsius 05/12/2023 11:08 AM EDT [facility] pH, Temp Corrected, Arterial 7.33 7.31 - 7.42 05/12/2023 11:08 AM EDT [facility] pCO2, Temp Corrected, Arterial 46 35 - 48 mm Hg 05/12/2023 11:08 AM EDT [facility] pO2, Temp Corrected, Arterial 371 >70 mm Hg 05/12/2023 11:08 AM EDT [facility] Valve Grinder ID Alexa Tompkins 05/12/2023 11:08 AM EDT [facility] Blood, Arterial Whole blood specimen / Unknown 05/12/2023 11:07 AM EDT 05/12/2023 11:08 AM EDT us Pablo Mckeon MD LAB POINT OF CARE TE ST DOCKED DEVICE UNSOLICITED RESULTS Final Result [facility] [address] [place] [id number] * (ABNORMAL) POCT ACT (05/12/2023 11:04 AM EDT) ACT+ (High Range) >600(H) 68 - 600 seconds 05/13/2023 9:26 PM EDT [facility] Valve Grinder ID Alexa Tompkins 05/13/2023 9:26 PM EDT [facility] ACT Device ID [id number] 05/13/2023 9:26 PM EDT [facility] Whole Blood Venous blood specimen / Unknown 05/12/2023 11:04 AM EDT 05/13/2023 9:26 PM EDT us Pablo Mckeon MD LAB POINT OF CARE TE ST DOCKED DEVICE UNSOLICITED RESULTS Final Result Performing Organization Address City/State/[facility] Co de Phone Number [facility] [address] [place] [address] * (ABNORMAL) POCT arterial blood gas gem (05/12/2023 10:35 AM EDT) pH, Arterial 7.33 7.31 - 7.42 05/12/2023 10:36 AM EDT [facility] pCO2, Arterial 45 35 - 48 mm Hg 05/12/2023 10:36 AM EDT [facility] pO2, Arterial 409 >70 mm Hg 05/12/2023 10:36 AM EDT [facility] SO2, Arterial 100(H) 94 - 98 % 05/12/2023 10:36 AM EDT [facility] Base Excess, Arterial -2.3(L) -2 - 3 mmol/L 05/12/2023 10:36 AM EDT [facility] HCO3, Arterial 23.7 22 - 26 mmol/L 05/12/2023 10:36 AM EDT [facility] Total Hemoglobin, Arterial, Whole Blood 10.0(L) [...] EDT [facility] Valve Grinder ID Alexa Tompkins 05/12/2023 10:36 AM EDT [facility] Blood, Arterial Whole blood specimen / Unknown 05/12/2023 10:35 AM EDT 05/12/2023 10:36 AM EDT us Pablo Mckeon MD LAB POINT OF CARE TE ST DOCKED DEVICE UNSOLICITED RESULTS Final Result Performing Organization Address City/State/[facility] de Phone Number [facility] [address] [place] [address] * (ABNORMAL) POCT ACT (05/12/2023 10:32 AM EDT) ACT+ (High Range) >600(H) 68 - 600 seconds 05/13/2023 9:26 PM EDT HEALTHCARE LAB Valve Grinder ID Alexa Tompkins 05/13/2023 9:26 PM EDT HEALTHCARE LAB ACT Device ID [id number] 05/13/2023 9:26 PM EDT [facility]ALTH[facility]ARE LAB Whole Blood Venous blood specimen / Unknown 05/12/2023 10:32 AM EDT 05/13/2023 9:26 PM EDT us Pablo Mckeon MD LAB POINT OF CARE TE ST DOCKED DEVICE UNSOLICITED RESULTS Final Result [facility] [address] [place] [address] * (ABNORMAL) POCT arterial blood gas gem [...] EDT [facility] Valve Grinder ID Sandeep Hunter 05/12/2023 10:16 AM EDT [facility] Blood, Arterial Whole blood specimen / Unknown 05/12/2023 10:15 AM EDT 05/12/2023 10:16 AM EDT Pablo Mckeon MD LAB POINT OF CARE TE ST DOCKED DEVICE UNSOLICITED RESULTS Final Result [facility] [address] [place] [address] * (ABNORMAL) CBC W/O Differential (05/12/2023 9:03 AM EDT) [facility] Signature WBC Count 5.82 3.70 - 10.30 10*3/uL [...] MD LAB BLOOD ORDERABLES Final Resu lt Performing Organization Address City/State/[facility] Co de Phone Number [facility] [address] [place] [address] * (ABNORMAL) POCT arterial blood gas gem [...] -2 - 3 mmol/L 05/12/2023 8:57 AM EDT [facility] HCO3, Arterial 24.5 22 - 26 mmol/L 05/12/2023 8:57 AM EDT [facility] ETCO2, Arterial 22 mmol/L 8:57 AM EDT [facility] Total Hemoglobin, Arterial, Whole Blood 10.5(L) 13.7 - 17.5 g/dL 05/12/2023 8:57 AM EDT [facility] Hematocrit, Arterial 32.0(L) 40.0 - 51.0 % 05/12/2023 8:57 AM EDT [facility] Sodium, Arterial 139 136 - 145 mmol/L 05/12/2023 8:57 AM EDT [facility] Potassium, Arterial 4.4 3.6 - 4.9 mmol/L 05/12/2023 8:57 AM EDT [facility] Chloride, Whole Blood 110(H) 97 - 107 mmol/L 05/12/2023 8:57 AM EDT [facility] Glucose, Arterial 99 74 - 99 mg/dL 05/12/2023 8:57 AM EDT [facility] Ionized Calcium, Arterial 5.1 4.6 - 5.1 mg/dL 05/12/2023 8:57 AM EDT [facility] Lactate, Arterial 1.0 0.5 - 1.6 mmol/L 05/12/2023 8:57 AM EDT [facility] Body Temperature 37.0 Celsius 05/12/2023 8:57 AM EDT [facility] pH, Temp Corrected, Arterial 7.52(H) 7.31 - 7.42 05/12/2023 8:57 AM EDT [facility] pCO2, Temp Corrected, Arterial 30(L) 35 - 48 mm Hg 05/12/2023 8:57 AM EDT [facility] pO2, Temp Corrected, Arterial 201 >70 mm Hg 05/12/2023 8:57 AM EDT [facility] Valve Grinder ID Sandeep Hunter 05/12/2023 8:57 AM EDT [facility] Blood, Arterial Whole blood specimen / Unknown 05/12/2023 8:55 AM EDT 05/12/2023 8:57 AM EDT us Pablo Mckeon MD LAB POINT OF CARE TE ST DOCKED DEVICE UNSOLICITED RESULTS Final Result [facility] [address] [place] [address] * POCT ACT (05/12/2023 7:57 AM EDT) ACT+ (High Range) 94 68 - 600 seconds 05/13/2023 9:21 PM EDT [facility] Valve Grinder ID Modesto Morfin 05/13/2023 9:21 PM EDT [facility] [place] [id number] 05/13/2023 9:21 PM EDT [facility] [...] UNSOLICITED RESULTS Final Result Performing Organization Address City/[facility] Co de Phone Number [facility] [address] [place] [address] * ECG Adult (05/12/2023 6:34 AM EDT) EKG DIAGNOSIS CLASS Normal MUSE ECG Ventricular Rate 64 BPM MUSE ECG Atrial Rate 64 BPM MUSE ECG [place] Interval 164 ms MUSE ECG QRSD Interval 82 ms MUSE ECG QT Interval 388 ms MUSE ECG QTC Interval 400 ms MUSE ECG P [place] 20 degrees MUSE ECG R [place] 8 degrees MUSE ECG T Wave [place] 75 degrees MUSE ECG Diagnosis Normal sinus rhythm MUSE ECG Diagnosis Confirmed by Juan Thompson ([id number]) on 05/12/2023 10:44:40 AM MUSE ECG 05/12/2023 6:34 AM EDT 05/12/2023 10:44 AM EDT us Sandeep Hunter MD ECG ORDERABLES Final Result Performing Organization Address City/[facility] Co de Phone Number MUSE ECG * Type and Screen (05/12/2023 6:25 AM EDT) ABO/Rh O Positive 05/12/2023 6:17 AM EDT BLOOD BANK Antibody Screen Negative 05/12/2023 6:17 AM EDT BLOOD BANK Specimen Expiration 05/15/2023 23:59 05/12/2023 6:17 AM EDT BLOOD BANK Blood Venous blood specimen / Unknown Venipuncture / Unknown 05/12/2023 6:25 AM EDT 05/12/2023 6:31 AM EDT us Pablo Mckeon MD LAB BLOOD BANK TEST ORDERABL ES Final Result BLOOD BANK [address] [place] [address], * (ABNORMAL) Basic metabolic panel (05/12/2023 6:25 [...] - 10.2 mg/dL 05/12/2023 7:05 AM EDT [facility] eGFRcr 68.5 mL/min/1.7 3m*2 05/12/2023 7:05 AM EDT [facility] Comment:Reported eGFRcr in m L/min/1.73m2 is based the CKD-EPI 2020 equation that does not use a race coefficient. 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 Primary hypertension Unspecified essential hypertension CAD (coronary artery disease) Coronary atherosclerosis of unspecified type of vessel, [place] or graft documented in this encounter Admitting Diagnoses Diagnosis CAD in [place] artery documented in this encounter Administered Medications Inactive Administered Medications - up to 3 most recent administrations Medication Order MAR Action Action Date Dose Rate Site acetaminophen (Tylenol) tablet 650 mg 650 mg, [...] Given 05/14/2023 9:06 AM EDT 10 mg docusate sodium (Colace) capsule 100 mg 100 mg, Oral, 2 times daily, First dose on Mon05/12/23 at 2100, Until Discontinued, Routine, Recovery(Phase II-Outpatient)/On Unit(Inpatient) Given 05/15/2023 8:02 AM EDT 100 mg Given 05/14/2023 8:33 PM EDT 100 mg Given 05/14/2023 8:24 AM EDT 100 mg enoxaparin (Lovenox) syringe 40 mg 40 mg, Subcutaneous, Daily, First dose on Mon05/13/23 at 0900, Until Discontinued, Routine Given 05/16/2023 8:43 AM EDT 40 mg Other Given 05/15/2023 8:02 AM EDT 40 mg Le ft Lower Abdomen Given 05/14/2023 8:24 AM EDT 40 mg Ri ght Lower Abdomen furosemide (Lasix) tablet 40 mg 40 mg, Oral, Daily, First dose on Mon05/14/23 at 1030, Until Discontinued, Routine Given 05/16/2023 8:42 AM EDT 40 mg Given 05/15/2023 8:01 AM EDT 40 mg Given 05/14/2023 11:03 AM EDT 40 mg lidocaine (Lidoderm) 5 % patch 1 patch 1 patch, Apply externally, Daily PRN, Starting on Mon05/12/23 at 1536, Until Mon05/16/23 at 1413, Administer over 12 Hours, Routine, mild pain methocarbamol (Robaxin) tablet 500 mg 500 mg, Oral, 4 times daily PRN, Starting on Mon05/12/23 at 1536, Until Mon05/16/23 at 1413, Routine, muscle spasms metoprolol tartrate (Lopressor) tablet 25 mg 25 mg, Oral, 2 times daily, First dose (after last modification) on Mon05/14/23 at 2100, Until Discontinued, Routine Given 05/16/2023 8:42 AM EDT 25 mg Given 05/15/2023 8:17 PM EDT 25 mg Given 05/15/2023 8:01 AM EDT 25 mg NITROGLYCERIN 100 MCG/ML INJECTION (LEG VEIN) injection As needed, Starting on Mon05/12/23 at 0745, Intraprocedure Given 05/12/2023 7:45 AM EDT 44 mL ondansetron (Zofran) injection 4 mg 4 mg, [...] Given 05/13/2023 4:11 AM EDT 5 mg papaverine in NS injection Continuous PRN, Starting on Mon05/12/23 at 0746, Until Mon05/12/23 at 1433, Routine, Intraprocedure New Bag 05/12/2023 7:46 AM EDT 30 mg polyethylene glycol (Miralax) packet 17 g 17 g, Oral, Daily, First dose on Mon05/13/23 at 0900, Until Discontinued, Routine, Recovery(Phase II-Outpatient)/On Unit(Inpatient) Given 05/16/2023 8:43 AM EDT 17 g Given 05/15/2023 8:02 AM EDT 17 g Given 05/14/2023 8:24 AM EDT 17 g senna (Senokot) tablet 17.2 mg 17.2 mg, Oral, Nightly, First dose on Mon05/12/23 at 2100, Until Discontinued, Routine, Recovery(Phase II-Outpatient)/On Unit(Inpatient) Given 05/13/2023 8:43 PM EDT 17.2 mg thrombin (recombinant) (Recothrom) topical solution As needed, Starting on Mon05/12/23 at 0746, Until Mon05/12/23 at 1433, Routine Given 05/12/2023 7:46 AM E DT 10,000 Units Tiotropium [place] Monohydrate (Spiriva Respimat) 2.5 MCG/ACT inhaler 2 puff 2 puff, Inhalation, Daily, First dose on Mon05/14/23 at 1715, Until Discontinued, STAT Given 05/16/2023 8:47 AM EDT 2 puffs Given 05/15/2023 8:03 AM EDT 2 puffs Given 05/14/2023 5:31 PM EDT 2 puffs vancomycin (Vancocin) vial for injection As needed, Starting on Mon05/12/23 at 0746, Until Mon05/12/23 at 1433, Routine, Intraprocedure Given 05/12/2023 7:46 AM EDT 1 g documented in this encounter Active and Recently Administered Medications Times are shown in EDT. Scheduled Medication Order 05/14/2023 05/15/2023 05/16/2023 acetaminophen (Tylenol) tablet 650 mg 650 mg, Oral, Every 6 hours scheduled, First dose on Mon05/12/23 at 1800, Until Discontinued, Routine 0059 (Given - Provider: Abigail Kaplan RN)0507 (Given - Provider: Abigail Kaplan RN)1208 (Given - Provider: Marianela Taylor RN)1730 (Given - Provider: Marianela Taylor RN)2351 (Given - Provider: Larry Vann RN) 0538 (Given - Provider: Laryr Vann RN)1125 (Given - Provider: Marianela Taylor RN)1703 (Given - Provider: Marianela Taylor RN) 0009 [...] 2200, Until Discontinued, Routine, Recovery(Phase II-Outpatient)/On Unit(Inpatient) 0824 (Given - Provider: Marianela Taylor RN) 0801 (Given - Provider: Marianela Taylor RN) 0842 [...] 2100, Until Discontinued, Routine, Recovery(Phase II-Outpatient)/On Unit(Inpatient) 24 (Given - Provider: Marianela Taylor RN)2032 (Given - Provider: Larry Vann RN) 801 (Given - Provider: Marianela Taylor RN)2019 (Not Given - Provider: Tristan Paris RN - Reason: Patient/family refused) 0844 (Not Given - Provider: Mario Souza - [...] 40 mg, Oral, Daily, First dose on Mon05/14/23 at 1030, Until Discontinued, Routine 1103 (Given - Provider: Marianela Taylor RN) 0801 (Given - Provider: Marianela Taylor RN) 0842 (Given - Provider: Mario Souza) metoprolol tartrate (Lopressor) split tablet 12.5 mg (CANCELED) 12.5 mg, Oral, 2 times daily, First dose on 05/13/23 at 1100, Until Discontinued, Routine 0824 (Given - Provider: Marianela Taylor RN) metoprolol tartrate (Lopressor) tablet 25 mg 25 mg, Oral, 2 times daily, First dose (after last modification) on 05/14/23 at 2100, Until Discontinued, Routine 2031 (Given - Provider: Larry Vann, NATASHA) 08 (Given - Provider: Marianela Taylor RN)2016 (Given - Provider: Tristan Paris RN) 0842 (Given - Provider: Mario Souza) mupirocin (Bactroban) 2 % ointment (COMPLETED) Each Nostril, 2 times daily, 8 doses, First dose on Mon05/12/23 at 2100, Last dose on Mon05/16/23 at 0900, Routine 08 (Given - Provider: Marianela Taylor, NATASHA)2031 (Given - Provider: Larry Vann RN) 08 (Given - Provider: Marianela Taylor RN)2019 (Given - Provider: Tristan Paris RN) 0842 (Given - Provider: Mario Souza) phosphorus (K Phos Neutral) tablet 1 tablet (COMPLETED) 1 tablet, Oral, Every 12 hours, 2 doses, First dose on 05/14/23 at 0730, Last dose on Mon05/14/23 at 1930, Routine 0745 (Given - Provider: Marianela Taylor RN)1846 (Given - Provider: Marianela Taylor RN) polyethylene glycol (Miralax) packet 17 g 17 g, Oral, Daily, First dose on 05/13/23 at 0900, Until Discontinued, Routine, Recovery(Phase II-Outpatient)/On Unit(Inpatient) 0824 (Given - Provider: Marianela Taylor RN) 08 (Given - Provider: Marianela Taylor RN) 0843 (Given - Provider: Mario Souza) potassium chloride CR (Klor-Con) ER tablet 40 mEq (COMPLETED) 40 mEq, Oral, Once, 1 dose, On 05/14/23 at 1500, Routine 1636 (Given - Provider: [...] Paris RN - Reason: Patient/family refused) Tiotropium [place] Monohydrate (Spiriva Respimat) 2.5 MCG/ACT inhaler 2 puff 2 puff, Inhalation, Daily, First dose on Mon05/14/23 at 1715, Until Discontinued, STAT 173 (Given - Provider: Marianela Taylor RN) 0803 (Given - Provider: Marianela Taylor RN) 0847 (Given - Provider: Mario Souza) PRN Medication Order 05/14/2023 05/15/2023 05/16/2023 albuterol 108 (90 Base) MCG/ACT inhaler 2 puff 2 puff, Inhalation, 4 times daily PRN, Starting on Mon05/13/23 at 1150, Until Mon05/16/23 at 1413, Routine, [...] Intravenous, Every 6 hours PRN, Starting on 05/13/23 at 1215, Until Mon05/16/23 at 1413, Routine, [...] documented as of this encounter Care Teams Vision Rehabilitation Therapist Relationship Specialty Start Date End Date Carl Tate DO [address] [place] [id number] PCP - General 04/17/23 Leandro Seaman MD [address] [place] [address] [phone] Consulting Physician Radiation Oncology 07/30/21 Carl Gaffney MD [address] [place] [address] Referring Physician 05/12/23 documented as of this encounter
[2024-01-11 09:12] VITALS: BP 143/72; PULSE 71; RESP 18; TEMP 36.3; O2SAT 99
[2024-01-11] MEDS: DENOSUMAB 60 MG/ML SYRINGE SUBCUT (09:12)
--- OUTSIDE RECORDS SUMMARY | 2024-01-11 09:12 | XMS_ITS | Encounter Summary ---
Author Organization [facility] Address [address] [place] [address] Care Team Providers Care Boiler Engineer Name Role Phone Leandro Seaman MD Unavailable [phone] Carl Tate DO Primary Care Provider Reason for Referral * Imaging (Routine) - Closed Specialty Diagnoses / Procedures Referred By Contac t Referred To Contact Radiology Diagnoses 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) Procedures CT Chest w IV Contrast Leandro Seaman MD [address] [address] Phone: tel: fax: Referral ID Status Reason Start Date Expiration Date Visits Re quested Visits Authorized [id number] Closed 01/23/2023 07/24/2024 1 1 Reason for Visit * Imaging (Routine) - Closed Specialty Diagnoses / Procedures Referred By Contpeace t Referred To Contact Radiology Diagnoses 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) Procedures CT Chest w IV Contrast Leandro Seaman MD [address] [address] Phone: tel: fax: Referral ID Status Reason Start Date Expiration Date Visits Re quested Visits Authorized [id number] Closed 01/23/2023 07/24/2024 1 1 Encounter Details Date Type Department Care Team (Latest Contact Info) Description 04/17/2023 8:12 AM EDT - 04/17/2023 9:21 AM EDT Hospital Encounter [facility] [address] [place] [address] Malignant neoplasm of upper lobe of left [...] AM EDT documented as of this encounter Discharge Instructions * Discharge Instructions* Michelet Arora - 04/17/2023 8:40 AM EDT * Attachments The following attachments cannot be sent through Care Everywhere. * Contrast Imaging Discharge Instructions ([place]) (Yi) documented in this encounter Medications at Time of Discharge aspirin 81 MG chewable tablet Chew 1 tablet (81 mg) 1 (one) time each day. atorvastatin (Lipitor) 80 MG tablet Take 1 tablet (80 mg) by mouth every night. 06/05/2020 clopidogrel (Plavix) 75 MG tablet TAKE 1 TABLET BY MOUTH ONCE DAILY FOR ANTIPLATELET 06/06/2020 denosumab (Prolia) 60 MG/ML solution prefilled syringe 1 milliliter(s) subcutaneous every 6 months Probiotic Product (PROBIOTIC BLEND PO) Take 1 tablet by mouth As Directed (Take on Monday, , and Monday). spironolactone (Aldactone) 25 MG tablet 1 tablet (25 mg). //Sat 05/19/2020 finasteride (Proscar) 5 MG tablet Take 1 tablet (5 mg) by mouth 1 (one) time each day. 06/16/2020 4 metoprolol succinate XL (Toprol-XL) 50 MG 24 hr tablet Take 0.5 tablets (25 mg) by mouth 1 (one) time each day. 10/03/2022 4 metoprolol tartrate (Lopressor) 25 MG tablet Take 1 tablet (25 mg) by mouth. 4 oseltamivir (Tamiflu) 75 MG capsule 04/10/2023 4 ranolazine (Ranexa) 1000 MG 12 hr tablet Take 500 mg by mouth 2 (two) times a day. 07/02/2021 4 Trelegy Ellipta 100-62.5-25 MCG/ACT aerosol powder Inhale 1 puff. 02/08/2023 4 documented as of this encounter Plan of Treatment Upcoming Encounters Date Type Department Care Team (Late st Contact Info) Description 01/15/2024 10:00 AM EST Ancillary Procedure [facility] [address] [place] [address] 01/15/2024 11:00 AM EST Consult [facility] [address] [place] [address] Ida Nayak PA [address] [place] [address] 06/19/2024 11:00 AM EDT Appointment [facility] [id number] [place] [address] Leandro Seaman MD [address] [place] [phone] documented as of this encounter Procedures Procedure Name Priority Date/Time Associated Diagnosis Comments CT CHEST W IV CONTRAST Routine 04/17/2023 8:43 AM EDT 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) POCT CREATININE ISTAT UNSOLICITED RESULTS Routine 04/17/2023 7:36 AM EDT documented in this encounter Results * CT Chest w IV Contrast (04/17/2023 8:43 AM EDT) Anatomical Region Laterality Modality Chest Computed Tomogra phy Impressions 04/17/2023 9:24 AM EDT Increased soft tissue density thickness now extends to include previously described nodule, concerning for interval progression. Recommend FDG PET CT and/or tissue sampling. Severe trivessel coronary artery calcifications; consider coronary CTA. CRITICAL RESULT: No. COMMUNICATION: Per this written report. Drafted by Madina Corona MD on 04/17/2023 8:49 AM Final report signed by Madina Corona MD on 04/17/2023 9:24 AM Narrative 04/17/2023 9:24 AM EDT CLINICAL INDICATION: Non-small cell lung cancer, non-metastatic, assess treatment response TECHNIQUE: Multiple CT helical images were obtained from thoracic inlet through upper abdomen with administration of IV contrast. 100 ??mL of Omnipaque-300 were administered intravenously. ?? Total DLP (Dose-Length Product): 136.12 mGy.cm. Please note: The reported value represents the total of one or more individual components during the CT acquisition on this date and at this time, and as such, the same value may appear in more than one CT report depending on the interpreting/reporting physicians. COMPARISON: January 18, 2023 CT chest. FINDINGS: Mediastinum and Pleura: No mediastinal or hilar adenopathy. No pleural effusion. Trace pericardial effusion. Severe trivessel coronary artery calcifications. Lungs: Redemonstrated centrilobular emphysema. Redemonstrated left perihilar soft tissue density, with slight narrowing of the bronchus and distal left pulmonary artery, consistent with postradiation fibrosis; oblique transverse dimension is increased, now 32 [...] Musculoskeletal: No suspicious lytic or sclerotic lesion. Procedure Note Madina Corona MD - 04/17/2023 CLINICAL INDICATION: Non-small cell lung cancer, non-metastatic, assess treatment response TECHNIQUE: Multiple CT helical images were obtained from thoracic inlet through upperabdomen with administration of IV contrast. 100 mL of Omnipaque-300 wereadministered intravenously. Total DLP (Dose-Length Product): 136.12 mGy.cm. Please note: The reportedvalue represents the total of one or more individual components during theCT acquisition on this date and at this time, and as such, the same valuemay appear in more than one CT report depending on theinterpreting/reporting physicians. COMPARISON: January 18, 2023 CT chest. FINDINGS: Mediastinum and Pleura: No mediastinal or hilar adenopathy. No pleuraleffusion. Trace pericardial effusion. Severe trivessel coronary arterycalcifications. Lungs: Redemonstrated centrilobular emphysema. Redemonstrated leftperihilar soft tissue density, with slight narrowing of the bronchus anddistal left pulmonary artery, consistent with postradiation fibrosis;oblique transverse dimension is increased, now 32 mm, increased from 26 mmas similar remeasured today, and extending to include the previouslydescribed left upper lobe 10 x 9 mm nodule. Additional small scatteredpulmonary nodules. Upper Abdomen: No significant interval change in left larger than rightadrenal nodules. Cholecystectomy clips. Left upper pole renal cyst isredemonstrated, 38 mm in maximum diameter. Musculoskeletal: No suspicious lytic or sclerotic lesion. IMPRESSION: Increased soft tissue density thickness now extends to include previouslydescribed nodule, concerning for interval progression. Recommend FDG PETCT and/or tissue sampling. Severe trivessel coronary artery calcifications; consider coronary CTA. CRITICAL RESULT: No. COMMUNICATION: Per this written report. Drafted by Madina Corona MD on 04/17/2023 8:49 AM Final report signed by Madina Corona MD on 04/17/2023 9:24 AM us Leandro Seaman MD IMG CT PROCEDURES Final Resu lt * (ABNORMAL) POCT creatinine (04/17/2023 7:36 AM EDT) Creatinine, Point of Care 1.5(H) 0.8 - 1.3 mg/dL 04/17/2023 8:40 AM EDT [facility] POCT eGFR 48 mL/min/1. 73m*2 04/17/2023 8:40 AM EDT [facility] Home Housekeeper ID Gabe Summers 04/17/2023 8:40 AM EDT [facility] Device ID [id number] 04/17/2023 8:40 AM EDT [facility] Comment 04/17/2023 8:40 AM EDT [facility] Comment:Testing performed on i-STAT at the point of care. Reported eGFRcr in mL/min/1.73m2 is based the CKD-EPI 2020 equation that does not use a race coefficient. Blood Venous blood specimen / Unknown 04/17/2023 7:36 AM EDT 04/17/2023 8:40 AM EDT us Generic Provider Poct LAB POINT OF CARE TEST DOCKED DEVICE UNSOLICITED RESULTS Final Result [facility] [address] [place] [address] documented in this encounter Visit Diagnoses Diagnosis 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) documented in this encounter Administered Medications Inactive Administered Medications - up to 3 most recent administrations Medication Order MAR Action Action Date Dose Rate Site iohexol (OMNIPaque) 300 MG/ML injection 100 mL 100 mL, Intravenous, Once in imaging, 1 dose, Starting on Mon04/17/23 at 0816, Until Mon04/17/23 at 0841, Routine, Imaging Protocol Orders Given 04/17/2023 8:41 AM EDT 100 mL documented in this encounter Additional Health Concerns Assessment Noted Time A fall risk assessment has been complete d for the patient 04/17/2023 9:35 AM EDT documented as of this encounter Care Teams Boiler Engineer Relationship Specialty Start Date End Date Carl Tate DO [address] [place] [id number] PCP - General 04/17/23 Leandro Seaman MD [address] [place] [phone] Consulting Physician Radiation Oncology 07/30/21 documented as of this encounter
--- OUTSIDE RECORDS SUMMARY | 2024-01-11 09:12 | XMS_ITS | Encounter Summary ---
Author Organization [facility] Address [address] [place] [address] Care Team Providers Care Orthopedic Shoes Salesperson Name Role Phone Leandro Seaman MD Unavailable [phone] Sampson Delgado MD Primary Care Provider [phone] Reason for Referral * Imaging (Routine) - Closed Specialty Diagnoses / Procedures Referred By Contac t Referred To Contact Radiology Diagnoses 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) Procedures CT Chest wo IV Contrast Leandro Seaman MD [address] [address] Phone: tel: fax: Referral ID Status Reason Start Date Expiration Date Visits Re quested Visits Authorized [id number] Closed 04/07/2022 10/07/2023 1 1 Reason for Visit * Imaging (Routine) - Closed Specialty Diagnoses / Procedures Referred By Shannan schmitt Referred To Contact Radiology Diagnoses 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) Procedures CT Chest wo IV Contrast Leandro Seaman MD [address] [address] Phone: tel: fax: Referral ID Status Reason Start Date Expiration Date Visits Re quested Visits Authorized [id number] Closed 04/07/2022 10/07/2023 1 1 Encounter Details Date Type Department Care Team (Latest Contact Info) Description 07/13/2022 8:24 AM EDT - 07/13/2022 10:02 AM EDT Hospital Encounter [facility] [address] [place] [address] Malignant neoplasm of upper lobe of left [...] mouth 1 (one) time each day. 06/16/2020 ranolazine (Ranexa) 1000 MG 12 hr tablet Take 500 mg by mouth 2 (two) times a day. 07/02/2021 4 documented as of this encounter Plan of Treatment Upcoming Encounters Date Type Department Care Team (Late st Contact Info) Description 01/15/2024 10:00 AM EST Ancillary Procedure [facility] [address] [place] [address] 01/15/2024 11:00 AM EST Consult [facility] [address] [place] [address] Ida Nayak PA [address] [place] [address] 06/19/2024 11:00 AM EDT Appointment [facility] [id number] [place] [id number] Leandro Seaman MD [address] [place] [address] documented as of this encounter Procedures Procedure Name Priority Date/Time Associated Diagnosis Comments CT CHEST WO IV CONTRAST Routine 07/13/2022 8:46 AM EDT 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) documented in this encounter Results * CT Chest wo IV Contrast (07/13/2022 8:46 AM EDT) Anatomical Region Laterality Modality Chest Computed Tomogra phy Impressions 07/13/2022 9:51 AM EDT No evidence of thoracic disease progression. Previously seen left upper lobe nodule has not significantly changed in size since the comparison study. Stable medial left upper lobe volume loss and scarring. CRITICAL RESULT: No. COMMUNICATION: Per this written report. By electronically signing this report, I, the attending physician, attest that I have personally reviewed the images/data for the above examination(s) and agree with the final edited report. Drafted by Xander Hayes MD on 07/13/2022 9:22 AM Final report signed by Baljinder Morrissey MD on 07/13/2022 9:51 AM Narrative 07/13/2022 9:51 AM EDT CLINICAL INDICATION: Non-small cell lung cancer, local recurrence, assess treatment response TECHNIQUE: Multiple CT helical images were obtained from thoracic inlet through upper abdomen without administration of IV contrast. Total DLP (Dose-Length Product): 148.40 mGy.cm. Please note: The reported value represents the total of one or more individual components during the CT acquisition on this date and at this time, and as such, the same value may appear in more than one CT report depending on the interpreting/reporting physicians. COMPARISON: CT chest without contrast 04/07/2022 FINDINGS: Mediastinum and Pleura: Coronary arterial stents are present. No pericardial effusion. No pleural effusion. No enlarged mediastinal lymph nodes. Lungs: No significant change in size or morphology of previously seen left upper lobe nodule, measuring 9.0 mm x 10 mm (series 4, image 92). No new or enlarging suspicious pulmonary nodules. Upper lobe predominant centrilobular emphysema. Similar appearance of left upper lobe radiation fibrosis. Upper Abdomen: No significant change in previously seen bilateral adrenal nodules. Stable left renal cyst. Musculoskeletal: No suspicious lytic or sclerotic lesion. Procedure Note Baljinder Morrissey MD - 07/13/2022 CLINICAL INDICATION: Non-small cell lung cancer, local recurrence, assess treatment response TECHNIQUE: Multiple CT helical images were obtained from thoracic inlet through upperabdomen without administration of IV contrast. Total DLP (Dose-Length Product): 148.40 mGy.cm. Please note: The reportedvalue represents the total of one or more individual components during theCT acquisition on this date and at this time, and as such, the same valuemay appear in more than one CT report depending on theinterpreting/reporting physicians. COMPARISON: CT chest without contrast 04/07/2022 FINDINGS: Mediastinum and Pleura: Coronary arterial stents are present. Nopericardial effusion. No pleural effusion. No enlarged mediastinal lymphnodes. Lungs: No significant change in size or morphology of previously seen leftupper lobe nodule, measuring 9.0 mm x 10 mm (series 4, image 92). No newor enlarging suspicious pulmonary nodules. Upper lobe predominantcentrilobular emphysema. Similar appearance of left upper lobe radiationfibrosis. Upper Abdomen: No significant change in previously seen bilateral adrenalnodules. Stable left renal cyst. Musculoskeletal: No suspicious lytic or sclerotic lesion. IMPRESSION: No evidence of thoracic disease progression. Previously seen left upperlobe nodule has not significantly changed in size since the comparisonstudy. Stable medial left upper lobe volume loss and scarring. CRITICAL RESULT: No. COMMUNICATION: Per this written report. By electronically signing this report, I, the attending physician, attestthat I have personally reviewed the images/data for the aboveexamination(s) and agree with the final edited report. Drafted by Xander Hayes MD on 07/13/2022 9:22 AM Final report signed by Baljinder Morrissey MD on 07/13/2022 9:51 AM us Leandro Seaman MD IMG CT PROCEDURES Final Resu lt documented in this encounter Visit Diagnoses Diagnosis 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) documented in this encounter Additional Health Concerns Assessment Noted Time A fall risk assessment has been complete d for the patient 07/13/2022 10:17 AM EDT documented as of this encounter Care Teams Orthopedic Shoes Salesperson Relationship Specialty Start Date End Date Sampson Delgado MD [address] [place] [address] PCP - General 04/07/22 04/16/23 Leandro Seaman MD [address] [place] [phone] Consulting Physician Radiation Oncology 07/30/21 documented as of this encounter
--- OUTSIDE RECORDS SUMMARY | 2024-01-11 09:12 | XMS_ITS | Encounter Summary ---
Author Organization [facility] Address [address] [place] [address] Care Team Providers Care Steel Die Printer Name Role Phone Leandro Seaman MD Unavailable [phone] Carl Tate DO Primary Care Provider [phone] Encounter Details Date Type Department Care Team (Late st Contact Info) Description 05/05/2023 8:00 AM EDT Pre-Admission Testing [facility] Pre-op Clinic [address], [address] [place] [phone] Anesthesia Record Procedure Summary Procedure Name Responsible [...] ISO vaporizer was turned to 0 at HIDE CLEANER temp 29 degrees. 1105 ACT Performed 976sec [...] An Stop 1449 an stop data Meds * Agents No agents on file. * Blood No blood administrations on file. Lines, Drains, and Airways Type Details Placement Removal Wound 05/12/23; 0835; Inci sharonda; Sternum; Upper 05/12/23 0835 by Ethan Hennessy, tutorial laboratory supervisor 05/12/23; 0835; Inci sharonda; Pretibial; Left, Proximal 05/12/23 0835 by Ethan Hennessy, tutorial laboratory supervisor 05/12/23; 0835; Inci sharonda; Pretibial; Proximal, Right 05/12/23 0835 by Ethan Hennessy, tutorial laboratory supervisor 05/12/23; 0835; N; Incision; Leg; Anterior, Distal, Right, Upper 05/12/23 0835 by Ethan Hennessy, RN Pacer Wires 05/12/23; 05/12/23; Epicardial; 05/15/23; 0900; Other (Comment) (Removed by Resident); No complications, Pacer wires intact 05/12/23 0000 by Marianela Taylor RN 05/15/23 0900 by Marianela Taylor, NATASHA Peripheral IV Placement Date: 06/29; Placement Time: 06; Catheter Size: 18 G; Orientation: Posterior, Right; Location: Hand; Site Prep: Chlorhexidine ; Local Anesth: Almond; Technique: Anatomical landmarks; Inserted by: avery messer; Insertion Attempts: 1; Patient Tolerance: Tolerated well; Removal Date: 05/16/23; Removal Time: 1000 05/12/23 0630 by Avery Messer RN 05/16/23 1000 by Mario Souza ETT Placement Date: 06/29; Placement Time: 07 (created via procedure documentation); Mask Ventilation: 0; [...] Ethan Hennessy RN 05/14/23 1349 by Marianela Taylor, NATASHA CVC Double Lumen Placement Date: 06/29; Placement [...] Pleural, Mediastinal; Size: 36 Fr; Drainage System: Dawson/nonsuction water seal drainage; Removal Date: 05/14/23; Removal [...] as of this encounter Miscellaneous Notes * PAT Evaluation Note - Brianda Atkins APRN - 05/05/2023 8:00 AM EDT HPI Carlo Noriega is a 77 y.o. male who presents with Pre-op Diagnosis * CAD (coronary artery disease) [I25.10] now scheduled for CABG (N/A) on 05/12/[address] Mckeon. Past Medical History: Diagnosis Date CAD (coronary [...] Date CARDIAC CATHETERIZATION CHOLECYSTECTOMY N/A Cholecystectomy from [facility] CORONARY STENT PLACEMENT 2021 PTCA with brachy therapy Cx KNEE SURGERY N/A Knee Surgery from [facility] OTHER SURGICAL HISTORY N/A Rt femoral stent > 20 years ago RADIATION THERAPY Lt lung cancer 2014 and 2021 WRIST FRACTURE SURGERY Left pins No Known Allergies MEDICATIONS: Current Outpatient Medications: albuterol, Inhale 2 puffs 4 (four) times a day if needed for wheezing. aspirin, Chew 1 tablet (81 mg) 1 (one) time each day. atorvastatin, Take 1 tablet (80 mg) by mouth every night. azelastine, Administer 1 spray into each nostril 1 (one) time each day if needed for rhinitis. Use in each nostril as directed clopidogrel, TAKE 1 TABLET BY MOUTH ONCE DAILY FOR ANTIPLATELET metoprolol succinate XL, Take 0.5 tablets (25 mg) by mouth 1 (one) time each day. Probiotic Product (PROBIOTIC BLEND PO), Take 1 tablet by mouth 3 times a week. spironolactone, 1 tablet (25 mg). Tu//Sat Tiotropium Emeigh Monohydrate, Inhale 2 puffs 2 (two) times a day. Prolia, 1 milliliter(s) subcutaneous every 6 months finasteride, Take 1 tablet (5 mg) by mouth 1 (one) time each day. (Patient not taking: Reported on 05/05/2023) metoprolol tartrate, Take 1 tablet (25 mg) by mouth. (Patient not taking: Reported on 05/05/2023) ROS Anesthesia: Date of last anesthetic: ~ [...] or COVID in the last 30 days. Neurological: no seizures: Did not have a cerebrovascular accident. Gastrointestinal: Does not have GERD.Does not have cirrhosis. Genitourinary: Does not have chronic renal disease. Hematological/Lymphatic: no hemophilia.History of no DVT. History of no pulmonary embolism. Not in a hypercoagulable state. history of chemotherapy (2014) without cardiopulmonary complications. history of radiation (2014) [...] proximal portion,focal distal 70% stenosis. Visit Vitals Smoking Status Former Lab Results Component Value Date WBC 8.62 05/04/2023 HGB 13.1 (L) 05/04/2023 HCT 44.4 05/04/2023 MCV 93 05/04/2023 PLT 242 05/04/2023 Lab Results Component Value Date GLUCOSE 108 (H) 05/04/2023 BUN 11 05/04/2023 CREATININE 1.03 05/04/2023 BCR 11 05/04/2023 NA 141 05/04/2023 K 5.4 (H) 05/04/2023 CL 107 05/04/2023 CO2 24 05/04/2023 CA 9.9 11/04/2015 ALBUMIN 4.1 05/04/2023 ALKPHOS 118 (H) 05/04/2023 BILITOT 0.5 05/04/2023 Lab Results Component Value Date HGBA1C 4.9 05/04/2023 Lab Results Component Value Date INR 1.0 05/04/2023 05/04/2023 9:44 AM Vitals Systolic 120 Diastolic 72 Heart Rate 68 Height (cm) 172.7 cm Weight (kg) 75.297 kg BMI 25.24 kg/m2 BSA (m2) 1.9 m2 Physical Exam Airway Cardiovascular Dental (+) upper dentures Pulmonary Neurological Skin Musculoskeletal Extremities Anesthesia Plan ASA 4 Anesthesia technique(s) discussed with the patient/family: general Comment: HIDE CLEANER phone screen From CTS note - Discussed we will not use his left internal mammary secondary to radiation field. We will likely use right internal mammary and vein to do his bypasses Brianda Dhillon APRN * Preprocedure Instructions - Brianda Atkins APRN - 05/05/2023 8:00 AM EDT Current Medications Medication Instructions albuterol 108 (90 Base) MCG/ACT inhaler Take as needed aspirin 81 MG chewable tablet Take morning of surgery atorvastatin (Lipitor) 80 MG tablet Take night before surgery azelastine (Astelin) 0.1 % nasal spray Take as needed clopidogrel (Plavix) 75 MG tablet Take last dose on 05/06/23 per surgeon metoprolol succinate XL (Toprol-XL) 50 MG 24 hr tablet Take morning of surgery Probiotic Product (PROBIOTIC BLEND PO) Hold day of surgery spironolactone (Aldactone) 25 MG tablet Hold day of surgery Tiotropium Emeigh Monohydrate (Spiriva Respimat) 2.5 MCG/ACT inhaler Take morning of surgery General Preoperative Instructions You will be called the business day before surgery with your arrival time Do not eat or drink anything after midnight except water with your medications unless other instructions are given No alcohol or smoking prior to surgery Arrive on time to avoid delays Parking/Registration procedure explained You MUST have a responsible adult available for transport to and from hospital Visitation policy for the day of surgery reviewed Bring insurance card, photo ID, along with power of business attorney, guardianship or advanced directives if applicable Do not bring money, jewelry or other valuables Hibiclens bathing instructions reviewed if applicable Notify surgeon of fever, illness, any changes or if you decide not to have surgery Diabetes Instructions (If applicable) Take diabetes medication as instructed You may have up to 4 ounces of apple juice 2 hours prior to arrival for surgery for low glucose Reviewed with patient and sent via my chart documented in this encounter Plan of Treatment Upcoming Encounters Date Type Department Care Team (Late st Contact Info) Description 01/15/2024 10:00 AM EST Ancillary Procedure [facility] Medicine Specialties [address] [place] [address] 01/15/2024 11:00 AM EST Consult [facility] Medicine Specialties [address], [address] [place] [address] Ida Nayak PA [address] [place] [address] 06/19/2024 11:00 AM EDT Appointment [facility] Radiation [address] [facility] [id number] [place] [address] Leandro Seaman MD [address] [place] [address] documented as of this encounter Visit Diagnoses Not on filedocumented in this encounter Additional Health Concerns Assessment Noted Time A fall risk assessment has been complete d for the patient 05/04/2023 9:45 AM EDT A Body Mass Index follow-up plan has been documented for the patient 05/04/2023 11:05 AM EDT documented as of this encounter Care Teams Steel Die Printer Relationship Specialty Start Date End Date Carl Tate DO [address] [place] [address] [phone] PCP - General 04/17/23 Leandro Seaman MD [address] [place] [address] Consulting Physician Radiation Oncology 07/30/21 documented as of this encounter
--- OUTSIDE RECORDS SUMMARY | 2024-01-11 09:12 | XMS_ITS | Encounter Summary ---
Author Organization Healthcare Address [address] [place] [address] Care Team Providers Care Component Lab Tech Name Role Phone Leandro Seaman MD Unavailable [phone] Carl Tate DO Primary Care Provider [phone] Encounter Details Date Type Department Care Team (Latest Contact Info) Description 05/04/2023 11:24 AM EDT - 05/04/2023 11:59 PM EDT [facility] En[facility] [address] [place] [address] Coronary artery disease involving qawalangin coronary artery of qawalangin heart without angina pectoris Discharge Disposition: Home or Self Care Social [...] MG tablet 1 tablet (25 mg). //Mon05/19/2020 Tiotropium Mcarthur Monohydrate (Spiriva Respimat) 2.5 MCG/ACT inhaler Inhale [...] 6 (six) hours. 100 tablet 05/16/2023 4 finasteride (Proscar) 5 MG tablet Take 1 tablet (5 mg) by mouth 1 (one) time each day. 06/16/2020 4 furosemide (Lasix) 40 MG tablet Take 1 tablet (40 mg) by mouth 1 (one) time each day for 5 days. 5 tablet 05/17/2023 4 methocarbamol (Robaxin) 500 MG tablet Take 1 tablet (500 mg) by mouth 4 (four) times a day if needed for muscle spasms for up to 10 days. 40 tablet 05/16/2023 4 metoprolol succinate XL (Toprol-XL) 50 MG 24 hr tablet Take 0.5 tablets (25 mg) by mouth 1 (one) time each day. 10/03/2022 4 metoprolol tartrate (Lopressor) 25 MG tablet Take 1 tablet (25 mg) by mouth. 4 metoprolol tartrate (Lopressor) 25 MG tablet Take 1 tablet (25 mg) by mouth 2 (two) times a day. 60 tablet 2 05/16/2023 4 oxyCODONE (Roxicodone) 5 MG immediate release tablet Take 1 tablet (5 mg) by mouth every 4 (four) hours if needed for moderate pain for up to 3 days. 18 tablet 05/16/2023 4 potassium chloride CR (Klor-Con M10) 10 MEQ ER tablet Take 1 tablet (10 mEq) by mouth 1 (one) time each day for 5 days. Do not crush or chew. 5 tablet 05/17/2023 4 Stiolto Respimat 2.5-2.5 MCG/ACT aerosol solution inhaler Inhale 2 Inhalations 1 (one) time each day. 05/03/2023 4 Tiotropium Mcarthur Monohydrate (Spiriva Respimat) 2.5 MCG/ACT inhaler Inhale 2 puffs 2 (two) times a day. 4 documented as of this encounter Plan of Treatment Upcoming Encounters Date Type Department Care Team (Late st Contact Info) Description 01/15/2024 10:00 AM EST Ancillary Procedure [facility] Medicine Specialties [address] [place] [address] 01/15/2024 11:00 AM EST Consult [facility] Medicine Specialties [address] [place] [address] Ida Nayak PA [address] [place] [address] 06/19/2024 11:00 AM EDT Appointment [facility] [id number] [place] [address] Leandro Seaman MD [address] [place] [address] documented as of this encounter Procedures Procedure Name Priority Date/Time Associated Diagnosis Comments XR CHEST 2 VIEWS Routine 05/04/2023 11:3 8 AM EDT Coronary artery disease involving qawalangin coronary artery of qawalangin heart without angina pectoris documented in this encounter Results * XR Chest 2 Views (05/04/2023 11:38 AM EDT) Anatomical Region Laterality Modality Chest Digital Radiogra phy Impressions 05/04/2023 5:00 PM EDT Left upper lobe medial volume loss and scarring with elevated left hemidiaphragm. CRITICAL RESULT: ?? No. COMMUNICATION: Per this written report. By electronically signing this report, I, the attending physician, attest that I have personally reviewed the images/data for the above examination(s) and agree with the final edited report. Drafted by Angelito Talavera MD on 05/04/2023 3:11 PM Final report signed by Baljinder Morrissey MD on 05/04/2023 5:00 PM Narrative 05/04/2023 5:00 PM EDT CLINICAL INDICATION: Coronary artery disease TECHNIQUE: XR CHEST 2 VIEWS COMPARISON: 04/17/2023 CT chest, 05/20/2014 chest radiograph FINDINGS: Stable mildly enlarged cardiac silhouette and mediastinal contours. Left upper lung region of scarring and atelectasis with elevation of left hemidiaphragm. ??No pleural effusion or consolidation. Increased left basal atelectasis or consolidation. Mild degenerative changes of thoracic spine. Procedure Note Baljinder Morrissey MD - 05/04/2023 CLINICAL INDICATION: Coronary artery disease TECHNIQUE: XR CHEST 2 VIEWS COMPARISON: 04/17/2023 CT chest, 05/20/2014 chest radiograph FINDINGS: Stable mildly enlarged cardiac silhouette and mediastinal contours. Leftupper lung region of scarring and atelectasis with elevation of lefthemidiaphragm. No pleural effusion or consolidation. Increased left basalatelectasis or consolidation. Mild degenerative changes of thoracicspine. IMPRESSION: Left upper lobe medial volume loss and scarring with elevated lefthemidiaphragm. CRITICAL RESULT: No. COMMUNICATION: Per this written report. By electronically signing this report, I, the attending physician, attyannthat I have personally reviewed the images/data for the aboveexamination(s) and agree with the final edited report. Drafted by Angelito Talavera MD on 05/04/2023 3:11 PM Final report signed by Baljinder Morrissey MD on 05/04/2023 5:00 PM Sampson Mckeon MD IMG XR PROCEDURES Final Resu lt documented in this encounter Visit Diagnoses Diagnosis Coronary artery disease involving qawalangin coronary artery of qawalangin heart without angina pectoris documented in this encounter Additional Health Concerns Assessment Noted Time A fall risk assessment has been complete d for the patient 05/04/2023 9:45 AM EDT A Body Mass Index follow-up plan has been documented for the patient 05/04/2023 11:05 AM EDT documented as of this encounter Care Teams Component Lab Tech Relationship Specialty Start Date End Date Carl Tate DO [address] [place] [address] PCP - General 04/17/23 Leandro Seaman MD [address] [place] [phone] Consulting Physician Radiation Oncology 07/30/21 documented as of this encounter
--- OUTSIDE RECORDS SUMMARY | 2024-01-11 09:12 | XMS_ITS | Encounter Summary ---
Author Organization Healthcare Address [address] [place] [address] Care Team Providers Care Student Counsellor Name Role Phone Leandro Seaman MD Unavailable [phone] Sampson Delgado MD Primary Care Provider [phone] Encounter Details Date Type Department Care Team (Latest Contact Info) Description 10/19/2022 Travel Social History Tobacco Use Types P[facility] [address] [place] [address] 01/15/2024 11:00 AM EST Consult [facility] [address] [place] [address] Ida Nayak PA [address] [place] [address] 06/19/2024 11:00 AM EDT Appointment [facility] [address] [facility] [id number] [place] [address] Leandro Seaman MD [address] [address] documented as of this encounter Visit Diagnoses Not on filedocumented in this encounter Additional Health Concerns Assessment Noted Time A fall risk assessment has been complete d for the patient 10/19/2022 9:37 AM EDT documented as of this encounter Care Teams Student Counsellor Relationship Specialty Start Date End Date Sampson Delgado MD [address] [place] [address] PCP - General 04/07/22 04/16/23 Leandro Seaman MD [address] [place] [phone] Consulting Physician Radiation Oncology 07/30/21 documented as of this encounter
--- OUTSIDE RECORDS SUMMARY | 2024-01-11 09:12 | XMS_ITS | Encounter Summary ---
Author Organization Healthcare Address [address] [id number] Care Team Providers [employer] Market Consultant Name Role Phone Leandro Seaman MD Unavailable [phone] Carl Tate DO Primary Care Provider [phone] Encounter Details Date Type Department Care Team (Latest Contact Info) Description 05/05/2023 Travel Social History Tobacco Use Types Packs/Day [...] Description 01/15/2024 10:00 AM EST [facility] Procedure [facility] [address] [place] [address] 01/15/2024 11:00 AM EST Consult [facility] [address], [address] [place] [address] Ida Nayak PA [address] [place] [address] 06/19/2024 11:00 AM EDT Appointment [facility] [address] [facility] [id number] [place] [address] Leandro Seaman MD [address] [phone] documented as of this encounter Visit Diagnoses Not on filedocumented in this encounter Additional Health Concerns Assessment Noted Time A fall risk assessment has been complete d for the patient 05/04/2023 9:45 AM EDT A Body Mass Index follow-up plan has been documented for the patient 05/04/2023 11:05 AM EDT documented as of this encounter Care Teams Solutions Market Consultant Relationship Specialty Start Date End Date Carl Tate DO [address] [place] [id number] PCP - General 04/17/23 Leandro Seaman MD [address] [place] [phone] Consulting Physician Radiation Oncology 07/30/21 documented as of this encounter
--- OUTSIDE RECORDS SUMMARY | 2024-01-11 09:12 | XMS_ITS | Encounter Summary ---
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 [place] [address] Leandro Seaman MD 800 [facility] [address] [place] [phone] Malignant neoplasm of upper lobe of [...] Sign Reading Time Taken Comments Blood Pressure 123/70 07/13/2022 10:11 AM EDT Pulse 63 07/13/2022 10:11 AM EDT Temperature 36.6 ??C (97.8 ??F) 07/13/2022 1 0:11 AM EDT Respiratory Rate 16 07/13/2022 10:1 1 AM EDT Oxygen Saturation 98% 07/13/2022 10: 11 AM EDT Inhaled Oxygen Concentration - - Weight 73.9 kg (162 lb 14.7 oz) 023 10:11 AM EDT Height - - Body Mass Index 24.77 07/30/2020 11:04 AM EDT documented in this encounter Medications [...] time each day. 06/16/2020 4 furosemide (Lasix) 20 MG tablet Take 1 tablet (20 mg) by mouth 1 (one) time each day. M/W/F 3 metoprolol tartrate (Lopressor) 25 MG tablet Take 1 tablet (25 mg) by mouth. 4 ranolazine (Ranexa) 1000 MG 12 hr tablet Take 500 mg by mouth 2 (two) times a day. 07/02/2021 4 documented as of this encounter Miscellaneous Notes * Progress Notes - Brock Munguia MD - 07/13/2022 11:00 AM EDT Radiation Oncology Follow Up Patient Name: Carlo Noriega Date of : 1945 76 y.o. Encounter Date: 07/13/2022 Carlo Noriega was seen today at the [facility] Radiation Medicine [facility] in 3 month followup. He presents today to discuss follow-up in his cancer care. 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 He has had significant CAD requiring stents. Overall he is doing well clinically and denies any acute concerns at this time. REVIEW OF SYSTEMS: A 14-point review of systems obtained and negative except as above. KPS: 90 - Able to carry on normal activity; minor signs or symptoms of disease. CURRENT OUTPATIENT MEDICATIONS: Medications reviewed. ALLERGIES: Allergy history was reviewed. PHYSICAL EXAM: Visit Vitals BP 123/70 Pulse 63 Temp 36.6 ??C (97.8 ??F) Resp 16 Wt 73.9 kg (162 lb 14.7 oz) SpO2 98% BMI 24.77 kg/m?? Smoking Status Former BSA 1.88 m?? General: Sitting comfortably. No acute distress. HEENT: Head normocephalic and atraumatic. Moist mucus membranes. Eyes: Extraocular movements are intact. Sclerae are anicteric. Neck: Supple, midline, no lymphadenopathy. Respiratory: Symmetric, nonlabored. No obvious crackles, wheezes or cough noted MSK: Moves all extremities spontaneously. No LE edema. Neurological: Alert and oriented x3. Cranial nerves II through XII are intact grossly. Psych: Appropriate mood and affect. Imaging reviewed. CT CHEST WO IV CONTRAST 07/13/2022 FINDINGS: Mediastinum and Pleura: Coronary arterial stents [...] left upper lobe volume loss and scarring. ASSESSMENT AND PLAN: Carlo Noriega is a very pleasant 76 y.o. year-old male with a prior diagnosis as above. Mr. Noriega is doing well clinically, and exam and imaging show no concerning findings for diseaserecurrence/progression. He will RTC in [address] Seaman on 10/19/[address] Chest. He will continue to follow with his other healthcare providers in the interim as scheduled. Thank you for the opportunity to participate in the care of the patient. Please contact our department withany questions. Total time 30 minutes, reviewing his treatment plans, previous and current CT and indiscussion with the patient. Sincerely, Brock Munguia MD [facility] RADIATION [address] [place] [phone] Cosigned by Leandro Seaman MD at 07/13/2022 11:52 AM EDT Associated attestation - Leandro Seaman MD - 07/13/2022 11:52 AM EDT I saw and evaluated the patient with the resident/fellow. I discussed the case with the resident/fellow and agree with the findings and plan as documented. documented in this encounter Plan of Treatment Upcoming Encounters Date Type Department Care Team (Late st Contact Info) Description 01/15/2024 10:00 AM EST Ancillary Procedure [facility] Medicine Specialties [address] [place] [address] 01/15/2024 11:00 AM EST Consult [facility] Medicine Specialties [address] [place] [address] Ida Nayak PA [address] [place] [address] 06/19/2024 11:00 AM EDT Appointment [facility] [id number] [place] [address] Leandro Seaman MD [address] [place] [phone] documented as of this encounter Results * CT Chest w IV Contrast (10/19/2022 7:48 AM EDT) Anatomical Region Laterality Modality Chest Computed Tomogra phy Impressions 10/19/2022 8:14 AM EDT No evidence of thoracic disease progression. Stable size of left upper lobe nodule as well as additional smaller bilateral nodules and nodular opacities. CRITICAL RESULT: No. COMMUNICATION: Per this written report. Drafted by Lupe Zelaya MD on 10/19/2022 8:07 AM Final report signed by Lupe Zelaya MD on 10/19/2022 8:14 AM Narrative 10/19/2022 8:14 AM EDT CLINICAL INDICATION: nsclc TECHNIQUE: Multiple CT helical images were obtained from thoracic inlet through upper abdomen with administration of IV contrast. 100 ??mL of Omnipaque-300 were administered intravenously. ?? Total DLP (Dose-Length Product): 286.18 mGy.cm. Please note: The reported value represents the total of one or more individual components during the CT acquisition on this date and at this time, and as such, the same value may appear in more than one CT report depending on the interpreting/reporting physicians. COMPARISON: 07/13/2022 FINDINGS: Mediastinum and Pleura: Coronary arterial stents are present. No pericardial effusion. No pleural effusion. No enlarged mediastinal lymph nodes. Lungs: No significant change in size of the left upper lobe nodule, measuring about 0.8 x 0.9 cm (series 4 image 100), grossly 0.9 x 1.0 cm. Several additional scattered bilateral nodules and nodular opacities are stable. No new or enlarging suspicious pulmonary nodules. Upper lobe predominant centrilobular emphysema. Similar appearance of left upper lobe paramediastinal fibrosis with associated volume loss. Upper Abdomen: Redemonstration of bilateral adrenal nodules. Musculoskeletal: No suspicious lytic or sclerotic lesion. Procedure Note Lupe Zelaya MD - 10/19/2022 CLINICAL INDICATION: nsclc TECHNIQUE: Multiple CT helical images were obtained from thoracic inlet through upperabdomen with administration of IV contrast. 100 mL of Omnipaque-300 wereadministered intravenously. Total DLP (Dose-Length Product): 286.18 mGy.cm. Please note: The reportedvalue represents the total of one or more individual components during theCT acquisition on this date and at this time, and as such, the same valuemay appear in more than one CT report depending on theinterpreting/reporting physicians. COMPARISON: 07/13/2022 FINDINGS: Mediastinum and Pleura: Coronary arterial stents are present. Nopericardial effusion. No pleural effusion. No enlarged mediastinal lymphnodes. Lungs: No significant change in size of the left upper lobe nodule,measuring about 0.8 x 0.9 cm (series 4 image 100), grossly 0.9 x 1.0 cm.Several additional scattered bilateral nodules and nodular opacities arestable. No new or enlarging suspicious pulmonary nodules. Upper lobepredominant centrilobular emphysema. Similar appearance of left upper lobeparamediastinal fibrosis with associated volume loss. Upper Abdomen: Redemonstration of bilateral adrenal nodules. Musculoskeletal: No suspicious lytic or sclerotic lesion. IMPRESSION: No evidence of thoracic disease progression. Stable size of left upperlobe nodule as well as additional smaller bilateral nodules and nodularopacities. CRITICAL RESULT: No. COMMUNICATION: Per this written report. Drafted by Lupe Zelaya MD on 10/19/2022 8:07 AM Final report signed by Lupe Zelaya MD on 10/19/2022 8:14 AM us Leandro Seaman MD IMG CT [...] documented as of this encounter Care Teams Baker Test Relationship Specialty Start Date End Date Sampson Delgado MD [address] [place] [address] PCP - General 04/07/22 04/16/23 Leandro Seaman MD [address] [place] [phone] Consulting Physician Radiation Oncology 07/30/21 documented as of this encounter
--- OUTSIDE RECORDS SUMMARY | 2024-01-11 09:12 | XMS_ITS | Encounter Summary ---
Author Organization [facility] Address [address] [place] [address] Care Team Providers Care Assistant Corporate Controller Name Role Phone Leandro Seaman MD Unavailable [phone] Sampson Delgado MD Primary Care Provider [phone] Reason for Referral * Imaging (Routine) - Closed Specialty Diagnoses / Procedures Referred By Shannan schmitt Referred To Contact Radiology Diagnoses 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) Procedures CT Chest wo IV Contrast Leandro Seaman MD [address] [address] Phone: tel: fax: Referral ID Status Reason Start Date Expiration Date Visits Re quested Visits Authorized [id number] Closed 04/07/2022 10/07/2023 1 1 Reason for Visit * Reason Comments Follow-up Encounter Details Date Type Department Care Team (Latest Contact Info) Description 04/07/2022 10:34 AM EST - 04/07/2022 11:59 PM EST Hospital Encounter [facility] [id number] [place] [phone] Leandro Seaman MD [address] [place] [phone] 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) (Primary Dx) Discharge Disposition: Still a Patient Social History Tobacco Use Types Packs/Day Years Used Date Smoking Tobacco: Former Cigarettes Q uit: 2003 Smokeless Tobacco: Never Alcohol Use Standard Drinks/Week Comments Yes 0 (1 standard drink = 0.6 oz pur e alcohol) Sex and Gender Information Value Date Recorded Sex Assigned at Male 07/30/2020 10:04 AM EDT Legal Sex Male 8:03 PM EDT Gender Identity Male 07/30/2020 10:04 AM EDT Sexual Orientation Straight 07/30/2020 10 :04 AM EDT COVID-19 Exposure Response Date Recorded In the last 10 days, have elena u been in contact with someone who was confirmed or suspected to have Coronavirus/COVID-19? No / Unsure 04/07/2022 8:52 AM EST documented as of this encounter Last Filed Vital Signs Vital Sign Reading Time Taken Comments Blood Pressure 112/68 04/07/2022 10:57 AM EST Pulse 58 04/07/2022 10:57 AM EST Temperature - - Respiratory Rate 16 04/07/2022 10:57 AM EST Oxygen Saturation 97% 04/07/2022 10:57 AM EST Inhaled Oxygen Concentration - - Weight 73.3 kg (161 lb 9.6 oz) 04/07/2022 10:57 AM EST Height - - Body Mass Index 24.57 07/30/2020 11:04 AM EDT documented in this [...] tablet 1 tablet (25 mg). //Sat 05/19/2020 albuterol 108 (90 Base) MCG/ACT inhaler 2 puff(s) inhaled 4 times a day 3 bisoprolol (Zebeta) 5 MG tablet TAKE 1 TABLET BY MOUTH ONCE DAILY FOR BLOOD PRESSURE 07/15/2020 3 Cartia XT 180 MG 24 hr capsule Take 180 mg by mouth 1 (one) time each day. 08/02/2019 3 cholestyramine (Questran) 4 g packet USE ONE PACKET DAILY 06/03/2013 3 cilostazol (Pletal) 100 MG tablet 12/27/2021 3 finasteride (Proscar) 5 MG tablet Take 1 tablet (5 mg) by mouth 1 (one) time each day. 06/16/2020 4 ranolazine (Ranexa) 1000 MG 12 hr tablet Take 500 mg by mouth 2 (two) times a day. 07/02/2021 4 simvastatin (Zocor) 40 MG tablet 1 tab(s) orally once a day (at bedtime) 3 sirolimus (Rapamune) 1 MG tablet 12/27/2021 3 Xarelto 2.5 MG tablet Take 2.5 mg by mouth 2 (two) times a day. 06/14/2021 3 documented as of this encounter Miscellaneous Notes * Progress Notes - Leandro Seaman MD - 04/07/2022 11:00 AM EST Radiation Oncology Follow Up Patient Name: Carlo Noriega Date of : 1945 76 y.o. Encounter Date: 04/07/2022 Carlo Noriega was seen today at the [facility] Radiation Medicine Clinic in 3 month [...] had significant CAD requiring stents. Overall he feels well. REVIEW OF SYSTEMS: A 14-point review of systems obtained and negative except as above. KPS: 90 - Able to carry on normal activity; minor signs or symptoms of disease. CURRENT OUTPATIENT MEDICATIONS: Medications reviewed. ALLERGIES: Allergy history was reviewed. PHYSICAL EXAM: Visit Vitals BP 112/68 Pulse 58 Resp 16 Wt 73.3 kg (161 lb 9.6 oz) SpO2 97% BMI 24.57 kg/m?? Smoking Status Former BSA 1.88 m?? [...] Appropriate mood and affect. Imaging reviewed. CT chest dated 04/07/2022 Report: Mildly decreased size of the treated left upper lobe nodule. No evidence of disease progression ASSESSMENT AND PLAN: Carlo Noriega is a very pleasant 76 y.o. year-old male with a prior diagnosis as above. We will plan to see the patient for follow up in our clinic in approximately 3 months with a repeat CT scan of the chest He will continue to follow with his other healthcare providers in the interim as scheduled. Thank you for the opportunity to participate in the care of the patient. Please contact our department withany questions. Total time 30 minutes, reviewing his treatment plans, previous and current CT and indiscussion with the patient. Sincerely, MD KELSEY [address] [address] documented in this encounter Plan of Treatment Upcoming Encounters Date Type Department Care Team (Late st Contact Info) Description 01/15/2024 10:00 AM EST Ancillary Procedure [facility] Medicine Specialties [address] [place] [address] 01/15/2024 11:00 AM EST Consult [facility] Medicine Specialties [address] [place] [address] Ida Nayak PA [address] [place] [address] 06/19/2024 11:00 AM EDT Appointment [facility] [id number] [place] [phone] Leandro Seaman MD [address] [place] [address] documented as of this encounter Results * [...] Baljinder Morrissey MD on 07/13/2022 9:51 AM Leandro Seaman MD IMG CT PROCEDURES Final Resu lt documented in this encounter Visit Diagnoses Diagnosis 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)- Primary 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) documented in this encounter Additional Health Concerns Assessment Noted Time A fall risk assessment has been complete d for the patient 04/07/2022 10:57 AM EST documented as of this encounter Care Teams Assistant Corporate Controller Relationship Specialty Start Date End Date Sampson Delgado MD [address] [place] [phone] PCP - General 04/07/22 04/16/23 Leandro Seaman MD [address] [place] [phone] Consulting Physician Radiation Oncology 07/30/21 documented as of this encounter
--- OUTSIDE RECORDS SUMMARY | 2024-01-11 09:12 | XMS_ITS | Encounter Summary ---
Author Organization [facility] Address [address] [place] [address] Care Team Providers Care Conveyor Technician Name Role Phone Cruzito Seaman MD Unavailable [phone] Sampson Delgado MD Primary Care Provider [phone] Reason for Referral * Imaging (Routine) - Closed Specialty Diagnoses / Procedures Referred By Contac t Referred To Contact Radiology Diagnoses 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) Procedures CT Chest wo IV Contrast Cruzito Seaman MD [address] [address] Phone: tel: fax: Referral ID Status Reason Start Date Expiration Date Visits Re quested Visits Authorized [id number] Closed 01/06/2022 07/08/2023 1 1 Reason for Visit * Imaging (Routine) - Closed Specialty Diagnoses / Procedures Referred By Shannan schmitt Referred To Contact Radiology Diagnoses 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) Procedures CT Chest wo IV Contrast Cruzito Seaman MD [address] [address] Phone: tel: fax: Referral ID Status Reason Start Date Expiration Date Visits Re quested Visits Authorized [id number] Closed 01/06/2022 07/08/2023 1 1 Encounter Details Date Type Department Care Team (Latest Contact Info) Description 04/07/2022 9:03 AM EST - 04/07/2022 10:33 AM EST Hospital Encounter [facility] [address] [place] [address] Malignant neoplasm of upper lobe of left [...] 06/14/2021 3 documented as of this encounter Plan of Treatment Upcoming Encounters Date Type Department Care Team (Late st Contact Info) Description 01/15/2024 10:00 AM EST Ancillary Procedure [facility] Medicine Specialties [address] [place] [address] 01/15/2024 11:00 AM EST Consult [facility] Medicine Specialties [address], [address] [place] [address] Ida Nayak PA [address] [place] [address] 06/19/2024 11:00 AM EDT Appointment [facility] Radiation [id number] [place] [address] Cruzito Seaman MD [address] [place] [phone] documented as of this encounter Procedures Procedure Name Priority Date/Time Associated Diagnosis Comments CT CHEST WO IV CONTRAST Routine 04/07/2022 9:40 AM EST 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) documented in this encounter Results * CT Chest wo IV Contrast (04/07/2022 9:40 AM EST) Anatomical Region Laterality Modality Chest Computed Tomogra phy Impressions 04/07/2022 10:58 AM EST Mildly decreased size of the treated left upper lobe nodule. No evidence of disease progression. CRITICAL RESULT: No. COMMUNICATION: Per this written report. By electronically signing this report, I, the attending physician, attest that I have personally reviewed the images/data for the above examination(s) and agree with the final edited report. Dictated by Talon Ervin MD on 04/07/2022 10:15 AM Signed by Sampson Cast MD on 04/07/2022 10:58 AM Narrative 04/07/2022 10:58 AM EST Exam/Procedure: CT CHEST WO IV CONTRAST ordered by CRUZITO SEAMAN, [id number] CLINICAL INDICATION: Non-small cell lung cancer, non-metastatic, assess treatment response TECHNIQUE: Multiple CT helical images were obtained from thoracic inlet through upper abdomen without administration of IV contrast. Total DLP (Dose-Length Product): 138.02 mGy.cm. Please note: The reported value represents the total of one or more individual components during the CT acquisition on this date and at this time, and as such, the same value may appear in more than one CT report depending on the interpreting/reporting physicians. COMPARISON: CT chest 01/06/2022 FINDINGS: Mediastinum and Pleura: No mediastinal or hilar adenopathy. No pleural or pericardial effusion. Coronary stents. Coronary artery calcifications. Lungs: Mildly decreased size of the left upper lobe nodule, measuring 11 x 9 mm compared to 13 x 10 mm previously (series 5, image 102). Similar appearance of the adjacent moderate apical predominant emphysematous changes. No new suspicious pulmonary nodules. Left suprahilar radiation-induced fibrosis. Upper Abdomen: Prior cholecystectomy with small cystic gallbladder remnant. Left renal cyst. Bilateral adrenal lesions with imaging characteristics suggestive of adenomas, measuring 11 mm on the right and 17 mm on the left. A small duodenal lipoma. Musculoskeletal: No suspicious lytic or sclerotic lesion. Procedure Note Sampson Cast MD - 04/07/2022 Exam/Procedure: CT CHEST WO IV CONTRAST ordered by CRUZITO SEAMAN,[id number] CLINICAL INDICATION: Non-small cell lung cancer, non-metastatic, assess treatment response TECHNIQUE: Multiple CT helical images were obtained from thoracic inlet through upperabdomen without administration of IV contrast. Total DLP (Dose-Length Product): 138.02 mGy.cm. Please note: The reportedvalue represents the total of one or more individual components during theCT acquisition on this date and at this time, and as such, the same valuemay appear in more than one CT report depending on theinterpreting/reporting physicians. COMPARISON: CT chest 01/06/2022 FINDINGS: Mediastinum and Pleura: No mediastinal or hilar adenopathy. No pleural orpericardial effusion. Coronary stents. Coronary artery calcifications. Lungs: Mildly decreased size of the left upper lobe nodule, measuring 11 x9 mm compared to 13 x 10 mm previously (series 5, image 102). Similarappearance of the adjacent moderate apical predominant emphysematouschanges. No new suspicious pulmonary nodules. Left suprahilarradiation-induced fibrosis. Upper Abdomen: Prior cholecystectomy with small cystic gallbladderremnant. Left renal cyst. Bilateral adrenal lesions with imagingcharacteristics suggestive of adenomas, measuring 11 mm on the right and17 mm on the left. A small duodenal lipoma. Musculoskeletal: No suspicious lytic or sclerotic lesion. IMPRESSION: Mildly decreased size of the treated left upper lobe nodule. No evidenceof disease progression. CRITICAL RESULT: No. COMMUNICATION: Per this written report. By electronically signing this report, I, the attending physician, jennifer I have personally reviewed the images/data for the aboveexamination(s) and agree with the final edited report. Dictated by Talon Ervin MD on 04/07/2022 10:15 AM Signed by Sampson Cast MD on 04/07/2022 10:58 AM us Cruzito Seamna MD IMG CT PROCEDURES Final Resu lt documented in this encounter Visit Diagnoses Diagnosis 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) documented in this encounter Additional Health Concerns Assessment Noted Time A fall risk assessment has been complete d for the patient 04/07/2022 10:57 AM EST documented as of this encounter Care Teams Conveyor Technician Relationship Specialty Start Date End Date Sampson Delgado MD [address] [place] [address] PCP - General 04/07/22 04/16/23 Cruzito Seaman MD [address] [place] [address] Consulting Physician Radiation Oncology 07/30/21 documented as of this encounter
--- OUTSIDE RECORDS SUMMARY | 2024-01-11 09:12 | XMS_ITS | Encounter Summary ---
Author Organization [facility] Address [address] [place] [address] Care Team Providers Care Senior Account Manager Name Role Phone Leandro Seaman MD Unavailable [phone] Carl Tate DO Primary Care Provider [phone] Encounter Details Date Type Department Care Team (Latest Contact Info) Description 05/04/2023 Travel Social History Tobacco Use Types Packs/Day [...] [facility] Medicine Specialties [address], [address] [place] [address] 01/15/2024 11:00 AM EST Consult [facility] [address] [place] [address] Ida Nayak PA [address] [place] [address] 06/19/2024 11:00 AM EDT Appointment [facility]iation [address] [facility] [id number] [place] [phone] Leandro Seaman MD [address] [address] documented as of this encounter Visit Diagnoses Not on filedocumented in this encounter Additional Health Concerns Assessment Noted Time A fall risk assessment has been complete d for the patient 05/04/2023 9:45 AM EDT A Body Mass Index follow-up plan has been documented for the patient 05/04/2023 11:05 AM EDT documented as of this encounter Care Teams Senior Account Manager Relationship Specialty Start Date End Date Carl Tate DO [address] [place] [address] [phone] PCP - General 04/17/23 Leandro Seaman MD [address] [place] [address] Consulting Physician Radiation Oncology 07/30/21 documented as of this encounter
--- OUTSIDE RECORDS SUMMARY | 2024-01-11 09:12 | XMS_ITS | Encounter Summary ---
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 [place] [address] Leandro Seaman MD [address] [address] Malignant neoplasm of upper lobe of [...] Sign Reading Time Taken Comments Blood Pressure 127/78 10/19/2022 9:38 AM EDT Pulse 54 10/19/2022 9:38 AM EDT Temperature - - Respiratory Rate 14 10/19/2022 9:38 AM EDT Oxygen Saturation 98% 10/19/2022 9:38 AM EDT Inhaled Oxygen Concentration - - Weight 75.3 kg (166 lb 0.1 oz) 10/19/2022 9:38 A M EDT Height - - Body Mass Index 25.24 07/30/2020 11:04 AM EDT documented in this [...] mouth 1 (one) time each day. 06/16/2020 metoprolol succinate XL (Toprol-XL) 50 MG 24 [...] encounter Miscellaneous Notes * Progress Notes - Luis Carlos Fu MD - 10/19/2022 10:00 AM EDT Radiation Oncology Follow Up Patient Name: Carlo Noriega Date of : 1945 77 y.o. Encounter Date: 10/19/2022 Carlo Noriega was seen today at the [facility] in 3 month [...] in 3 additional fractions, completed in 10/2016 - 5400 cGy in 3 fractions SBRT to [...] was reviewed. PHYSICAL EXAM: Visit Vitals BP 127/78 Pulse 54 Resp 14 Wt 75.3 kg (166 lb 0.1 oz) SpO2 98% BMI 25.24 kg/m?? Smoking Status Former BSA 1.9 m?? General: Sitting comfortably. No acute distress. [...] Imaging reviewed. CT CHEST WO IV CONTRAST 10/19/2022 - IMPRESSION: No evidence of thoracic disease progression. Stable size of left upper lobe nodule as well as additional smaller bilateral nodules and nodular opacities. ASSESSMENT AND PLAN: Carlo Noriega is a very pleasant 77 y.o. year-old male with a prior diagnosis as above. Mr. Noriega is doing well clinically, and exam and imaging show no concerning findings for diseaserecurrence/progression. He will RTC in [address] Seaman with repeat CT Chest. He will continue to follow with his other healthcare providers in the interim as scheduled. Thank you for the opportunity to participate in the care of the patient. Please contact our department withany questions. Total time 30 minutes, reviewing his treatment plans, previous and current CT and indiscussion with the patient. Sincerely, Luis Carlos Fu MD [facility] RADIATION [address] [facility] [address] Cosigned by Leandro Seaman MD at 10/19/2022 10:37 AM EDT Associated attestation - Leandro Seaman MD - 10/19/2022 10:37 AM EDT I saw and evaluated the patient with the resident/fellow. I discussed the case with the resident/fellow and agree with the findings and plan as documented. documented in this encounter Plan of Treatment Upcoming Encounters Date Type Department Care Team (Late st Contact Info) Description 01/15/2024 10:00 AM EST Ancillary Procedure [facility] Medicine Specialties [address] [place] [address] 01/15/2024 11:00 AM EST Consult [facility] [address], [address] [place] [address] Ida Nayak PA [address] [place] [address] 06/19/2024 11:00 AM EDT Appointment [facility] [id number] [place] [phone] Leandro Seaman MD [address] [place] [address] documented as of this encounter Results * CT Chest w IV Contrast (01/18/2023 8:25 AM EST) Anatomical Region Laterality Modality Chest Computed Tomogra phy Impressions 01/18/2023 9:30 AM EST No evidence of thoracic disease progression. Redemonstration of left upper lobe nodule as well as additional smaller bilateral nodules and nodular opacities. CRITICAL RESULT: No. COMMUNICATION: Per this written report. Drafted by Lupe Zelaya MD on 01/18/2023 9:19 AM Final report signed by Lupe Zelaya MD on 01/18/2023 9:30 AM Narrative 01/18/2023 9:30 AM EST CLINICAL INDICATION: Non-small cell lung cancer, non-metastatic, assess treatment response TECHNIQUE: Multiple CT helical images were obtained from thoracic inlet through upper abdomen with administration of IV contrast. 100 ??mL of Omnipaque-300 were administered intravenously. ?? Total DLP (Dose-Length Product): 240.90 mGy.cm. Please note: The reported value represents the total of one or more individual components during the CT acquisition on this date and at this time, and as such, the same value may appear in more than one CT report depending on the interpreting/reporting physicians. COMPARISON: 10/19/2022 FINDINGS: Mediastinum and Pleura: Coronary arterial stents are present. No pericardial effusion. No pleural effusion. No enlarged mediastinal lymph nodes. Lungs: Similar appearance of left upper lobe paramediastinal fibrosis with associated volume loss and stable 0.8 cm left upper lobe nodule along the lateral aspect of the fibrosis (series 4 image 89), similar to prior study. Several additional scattered bilateral nodules and nodular opacities are stable. No new or enlarging suspicious pulmonary nodules. Upper lobe predominant centrilobular emphysema. Upper Abdomen: Redemonstration of bilateral adrenal nodules. Musculoskeletal: No suspicious lytic or sclerotic lesion. Procedure Note Lupe Zelaya MD - 01/18/2023 CLINICAL INDICATION: Non-small cell lung cancer, non-metastatic, assess treatment response TECHNIQUE: Multiple CT helical images were obtained from thoracic inlet through upperabdomen with administration of IV contrast. 100 mL of Omnipaque-300 wereadministered intravenously. Total DLP (Dose-Length Product): 240.90 mGy.cm. Please note: The reportedvalue represents the total of one or more individual components during theCT acquisition on this date and at this time, and as such, the same valuemay appear in more than one CT report depending on theinterpreting/reporting physicians. COMPARISON: 10/19/2022 FINDINGS: Mediastinum and Pleura: Coronary arterial stents are present. Nopericardial effusion. No pleural effusion. No enlarged mediastinal lymphnodes. Lungs: Similar appearance of left upper lobe paramediastinal fibrosis withassociated volume loss and stable 0.8 cm left upper lobe nodule along thelateral aspect of the fibrosis (series 4 image 89), similar to priorstudy. Several additional scattered bilateral nodules and nodularopacities are stable. No new or enlarging suspicious pulmonary nodules.Upper lobe predominant centrilobular emphysema. Upper Abdomen: Redemonstration of bilateral adrenal nodules. Musculoskeletal: No suspicious lytic or sclerotic lesion. IMPRESSION: No evidence of thoracic disease progression. Redemonstration of left upperlobe nodule as well as additional smaller bilateral nodules and nodularopacities. CRITICAL RESULT: No. COMMUNICATION: Per this written report. Drafted by Lupe Zelaya MD on 01/18/2023 9:19 AM Final report signed by Lupe Zelaya MD on 01/18/2023 9:30 AM us Leandro Seaman MD IMG CT [...] documented as of this encounter Care Teams Pattern Changer And Repairer Relationship Specialty Start Date End Date Sampson Delgado MD [address] [place] [address] PCP - General 04/07/22 04/16/23 Leandro Seaman MD [address] [place] [address] Consulting Physician Radiation Oncology 07/30/21 documented as of this encounter
--- OUTSIDE RECORDS SUMMARY | 2024-01-11 09:12 | XMS_ITS | Encounter Summary ---
Author Organization [facility] Address [address] [place] [address] Care Team Providers Care High School Sports Coach Name Role Phone Leandro Seaman MD Unavailable [phone] Sampson Delgado MD Primary Care Provider [phone] Reason for Referral * Imaging (Routine) - Closed Specialty Diagnoses / Procedures Referred By Contac t Referred To Contact Radiology Diagnoses 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) Procedures CT Chest w IV Contrast Leandro Seaman MD [address] [address] Phone: tel: fax: Referral ID Status Reason Start Date Expiration Date Visits Re quested Visits Authorized [id number] Closed 07/13/2022 01/12/2024 1 1 Reason for Visit * Imaging (Routine) - Closed Specialty Diagnoses / Procedures Referred By Shannan schmitt Referred To Contact Radiology Diagnoses 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) Procedures CT Chest w IV Contrast Leandro Seaman MD [id number] [place] [address] Phone: tel: fax: Referral ID Status Reason Start Date Expiration Date Visits Re quested Visits Authorized [id number] Closed 07/13/2022 01/12/2024 1 1 Encounter Details Date Type Department Care Team (Latest Contact Info) Description 10/19/2022 6:41 AM EDT - 10/19/2022 9:28 AM EDT Hospital Encounter [facility]iology [address] [place] [address] Malignant neoplasm of upper lobe of left [...] as of this encounter Discharge Instructions * Attachments The following attachments cannot be sent through Care Everywhere. * Contrast Imaging Discharge Instructions ([place]) (Italian) documented in this encounter Medications at Time [...] mouth 2 (two) times a day. 07/02/2021 documented as of this encounter Plan of Treatment Upcoming Encounters Date Type Department Care Team (Late st Contact Info) Description 01/15/2024 10:00 AM EST Ancillary Procedure [facility] Medicine Specialties [address] [place] [address] 01/15/2024 11:00 AM EST Consult [facility] Medicine Specialties [address], [address] [place] [address] Ida Nayak PA [address] [place] [address] 06/19/2024 11:00 AM EDT Appointment [facility] Radiation [id number] [place] [address] Leandro Seaman MD [id number] [place] [address] documented as of this encounter Procedures Procedure Name Priority Date/Time Associated Diagnosis Comments CT CHEST W IV CONTRAST Routine 10/19/2022 7:48 AM EDT 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) POCT CREATININE ISTAT UNSOLICITED RESULTS Routine 10/19/2022 7:16 AM EDT documented in this encounter Results [...] IMG CT PROCEDURES Final Resu lt * POCT creatinine (10/19/2022 7:16 AM EDT) [facility] Creatinine, Point of Care 1.3 0.8 - 1.3 mg/dL 10/19/2022 7:19 AM EDT [facility] POCT eGFR 57 mL/min/1. 73m*2 10/19/2022 7:19 AM EDT [facility] Check Viewer ID Sergio Suh 10/19/2022 7:19 AM EDT [facility] Device ID [id number] 10/19/2022 7:19 AM EDT [facility] Comment 10/19/2022 7:19 AM EDT [facility] Comment:Testing performed on i-STAT at the point of care. Reported eGFRcr in mL/min/1.73m2 is based the CKD-EPI 2020 equation that does not use a race coefficient. Blood Venous blood specimen / Unknown 10/19/2022 7:16 AM EDT 10/19/2022 7:19 AM EDT us Generic Provider Poct LAB POINT OF CARE TEST DOCKED DEVICE UNSOLICITED RESULTS Final Result [facility] [address] [place] [id number] documented in this encounter Visit Diagnoses Diagnosis 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) documented in this encounter Administered Medications Inactive Administered Medications - up to 3 most recent administrations Medication Order MAR Action Action Date Dose Rate Site iohexol (OMNIPaque) 300 MG/ML injection 100 mL 100 mL, Intravenous, Once in imaging, 1 dose, Starting on Mon10/19/22 at 0708, Until Mon10/19/22 at 0732, Routine, Imaging Protocol Orders Given 10/19/2022 7:32 AM EDT 80 mL documented in this encounter Additional Health Concerns Assessment Noted Time A fall risk assessment has been complete d for the patient 10/19/2022 9:37 AM EDT documented as of this encounter Care Teams High School Sports Coach Relationship Specialty Start Date End Date Sampson Delgado MD [address] [place] [address] PCP - General 04/07/22 04/16/23 Leandro Seaman MD [address] [place], [place] [id number] [place] [address] Consulting Physician Radiation Oncology 07/30/21 documented as of this encounter
--- OUTSIDE RECORDS SUMMARY | 2024-01-11 09:12 | XMS_ITS | Encounter Summary ---
Author Organization [facility] Address [address] [place] [address] Care Team Providers Care Commercial Loan Officer Name Role Phone Leandro Seaman MD Unavailable [phone] Sampson Delgado MD Primary Care Provider [phone] Encounter Details Date Type Department Care Team (Latest Contact Info) Description 01/18/2023 Travel Social History Tobacco Use Types Packs/Day [facility] [address] [place] [address] 01/15/2024 11:00 AM EST Consult [facility] [address] [place] [address] Ida Nayak PA [address] [place] [address] 06/19/2024 11:00 AM EDT Appointment [facility] Radiation [address] [facility] [id number] [place] [address] Leandro Seaman MD [address] [address] documented as of this encounter Visit Diagnoses Not on filedocumented in this encounter Additional Health Concerns Assessment Noted Time A fall risk assessment has been complete d for the patient 10/19/2022 9:37 AM EDT documented as of this encounter Care Teams Commercial Loan Officer Relationship Specialty Start Date End Date Sampson Delgado MD [address] [place] [address] PCP - General 04/07/22 04/16/23 Leandro Seaman MD [address] [place] [phone] Consulting Physician Radiation Oncology 07/30/21 documented as of this encounter
--- OUTSIDE RECORDS SUMMARY | 2024-01-11 09:12 | XMS_ITS | Encounter Summary ---
Author Organization Healthcare Address [address] [place] [address] Care Team Providers Care Experiential Therapist Name Role Phone Leandro Seaman MD Unavailable [phone] Carl Tate DO Primary Care Provider [phone] Encounter Details Date Type Department Care Team (Latest Contact Info) Description 04/28/2023 Travel Social History Tobacco Use Types Packs/Day [...] Description 01/15/2024 10:00 AM EST Ancillary Procedure [facility] Medicine Specialties [address], [address] [place] [address] 01/15/2024 11:00 AM EST Consult [facility] [address], [address] [place] [address] Ida Nayak PA [address] [place] [address] 06/19/2024 11:00 AM EDT Appointment [facility] Radiation 800 [facility] [id number] [place] [phone] Leandro Seaman MD [address] [address] documented as of this encounter Visit Diagnoses Not on filedocumented in this encounter Additional Health Concerns Assessment Noted Time A fall risk assessment has been complete d for the patient 04/17/2023 9:35 AM EDT documented as of this encounter Care Teams Experiential Therapist Relationship Specialty Start Date End Date Carl Tate DO [address] [place] [address] [id number] PCP - General 04/17/23 Leandro Seaman MD [address] [place] [address] Consulting Physician Radiation Oncology 07/30/21 documented as of this encounter
--- OUTSIDE RECORDS SUMMARY | 2024-01-11 09:12 | XMS_ITS | Encounter Summary ---
Author Organization Healthcare Address [address] [place] [address] Care Team Providers Care Aerophysicist Name Role Phone Leandro Seaman MD Unavailable [phone] Carl Tate DO Primary Care Provider [phone] Encounter Details Date Type Department Care Team (Latest Contact Info) Description 04/17/2023 Travel Social History Tobacco Use Types Packs/Day [...] Procedure [facility] [address], [address] [place] [address] 01/15/2024 11:00 AM EST Consult [facility] [address], [address] [place] [address] Ida Nayak PA [address] [place] [address] 06/19/2024 11:00 AM EDT Appointment [facility] Radiation 800 [facility] [id number] [place] [phone] Leandro Seaman MD [address] [address] documented as of this encounter Visit Diagnoses Not on filedocumented in this encounter Additional Health Concerns Assessment Noted Time A fall risk assessment has been complete d for the patient 04/17/2023 9:35 AM EDT documented as of this encounter Care Teams Aerophysicist Relationship Specialty Start Date End Date Carl Tate DO [address] [place] [address] [id number] PCP - General 04/17/23 Leandro Seaman MD [address] [place] [address] Consulting Physician Radiation Oncology 07/30/21 documented as of this encounter
--- OUTSIDE RECORDS SUMMARY | 2024-01-11 09:12 | XMS_ITS | Encounter Summary ---
Author Organization [facility] Address [address] [place] [address] Care Team Providers Care Jeep Mechanic Name Role Phone Leandro Seaman MD Unavailable [phone] Sampson Delgado MD Primary Care Provider [phone] Reason for Referral * Imaging (Routine) - Closed Specialty Diagnoses / Procedures Referred By Shannan schmitt Referred To Contact Radiology Diagnoses 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) Procedures CT Chest w IV Contrast Leandro Seaman MD [address] [address] Phone: tel: fax: Referral ID Status Reason Start Date Expiration Date Visits Re quested Visits Authorized [id number] Closed 01/23/2023 07/24/2024 1 1 Encounter Details Date Type Department Care Team (Late st Contact Info) Description 01/23/2023 Orders Only [facility] Radiation [address] [id number] [place] [address] Leandro Seaman MD [address] [address] Malignant neoplasm of upper lobe [...] Progress Notes - Leandro Seaman MD - 01/23/2023 1:[address] chest documented in this encounter Plan of Treatment Upcoming Encounters Date Type Department Care Team (Late st Contact Info) Description 01/15/2024 10:00 AM EST Ancillary Procedure [facility] Medicine Specialties [address], [address] [place] [address] 01/15/2024 11:00 AM EST Consult [facility] Medicine Specialties [address], [address] [place] [address] Ida Nayak PA [address] [place] [address] 06/19/2024 11:00 AM EDT Appointment [facility] Radiation [address] [id number] [place] [address] Laendro Seaman MD [address] [place] [address] documented as of this encounter Results * [...] Madina Corona MD on 04/17/2023 9:24 AM Leandro Seaman MD IMG CT PROCEDURES [...] documented as of this encounter Care Teams Jeep Mechanic Relationship Specialty Start Date End Date Sampson Delgado MD [address] [place] [address] PCP - General 04/07/22 04/16/23 Leandro Seaman MD [address] [place], [place] [id number] [place] [address] Consulting Physician Radiation Oncology 07/30/21 documented as of this encounter
--- OUTSIDE RECORDS SUMMARY | 2024-01-11 09:12 | XMS_ITS | Encounter Summary ---
Author Organization Healthcare Address [address] [place] [address] Care Team Providers Care Placement Director Name Role Phone Leandro Seaman MD Unavailable [phone] Sampson Delgado MD Primary Care Provider [phone] Encounter Details Date Type Department Care Team (Latest Contact Info) Description 04/07/2022 Travel Social History Tobacco Use Types Packs/Day [...] Description 01/15/2024 10:00 AM EST Ancillary Procedure [place] [facility] [address] [place] [address] 01/15/2024 11:00 AM EST Consult [facility] Medicine Specialties [address], [address] [place] [address] Ida Nayak PA [address] [place] [address] 06/19/2024 11:00 AM EDT Appointment [facility] Radiation 800 [facility] [id number] [place] [address] Leandro Seaman MD 800 [facility] [address] [place] [address] documented as of this encounter Visit Diagnoses Not on filedocumented in this encounter Additional Health Concerns Assessment Noted Time A fall risk assessment has been complete d for the patient 04/07/2022 10:57 AM EST documented as of this encounter Care Teams Placement Director Relationship Specialty Start Date End Date Sampson Delgado MD [address] [place] [address] PCP - General 04/07/22 04/16/23 Leandro Seaman MD [address] [address] Consulting Physician Radiation Oncology 07/30/21 documented as of this encounter
--- OUTSIDE RECORDS SUMMARY | 2024-01-11 09:12 | XMS_ITS | Encounter Summary ---
Author Organization Healthcare Address [address] [place] [address] Care Team Providers Care Lockstitch Waistline Joiner Name Role Phone Leandro Seaman MD Unavailable [phone] Sampson Delgado MD Primary Care Provider [phone] Encounter Details Date Type Department Care Team (Late st Contact Info) Description 01/18/2023 Telephone [facility] Radiation [address] [id number] [place] [address] Leandro Seaman MD [address] [place] [address] Social History Tobacco Use Types Packs/Day Years [...] Procedure [place] [facility] [address], [address] [place] [address] 01/15/2024 11:00 AM EST Consult [facility] Medicine Specialties [address], [address] [place] [address] Ida Nayak PA [address] [place] [address] 06/19/2024 11:00 AM EDT Appointment [facility] Rad[facility] [address] [id number] [place] [address] Leandro Seaman MD [address] [place] [address] documented as of this encounter Visit Diagnoses Not on filedocumented in this encounter Additional Health Concerns Assessment Noted Time A fall risk assessment has been complete d for the patient 10/19/2022 9:37 AM EDT documented as of this encounter Care Teams Lockstitch Waistline Joiner Relationship Specialty Start Date End Date Sampson Delgado MD [address] [id number] PCP - General 04/07/22 04/16/23 Leandro Seaman MD [address] [place] [address] Consulting Physician Radiation Oncology 07/30/21 documented as of this encounter
--- OUTSIDE RECORDS SUMMARY | 2024-01-11 09:12 | XMS_ITS | Encounter Summary ---
Author Organization Healthcare Address [address] [place] [address] Care Team Providers Care Artistic Associate Name Role Phone Leandro Seaman MD Unavailable [phone] Sampson Delgado MD Primary Care Provider [phone] Encounter Details Date Type Department Care Team (Late st Contact Info) Description 01/18/2023 Telephone [facility] Radiation [address] [id number] [place] [address] Leandro Seaman MD [address] [place] [address] Social History Tobacco Use Types Packs/Day Years [...] Description 01/15/2024 10:00 AM EST Ancillary Procedure [facility] [address], [address] [place] [address] 01/15/2024 11:00 AM EST Consult [facility] Medicine Specialties [address], [address] [place] [address] Ida Nayak PA [address] [place] [address] 06/19/2024 11:00 AM EDT Appointment [facility] Rad[facility] [address] [id number] [place] [address] Leandro Seaman MD [address] [place] [address] documented as of this encounter Visit Diagnoses Not on filedocumented in this encounter Additional Health Concerns Assessment Noted Time A fall risk assessment has been complete d for the patient 10/19/2022 9:37 AM EDT documented as of this encounter Care Teams Artistic Associate Relationship Specialty Start Date End Date Sampson Delgado MD [address] [id number] PCP - General 04/07/22 04/16/23 Leandro Seaman MD [address] [place] [address] Consulting Physician Radiation Oncology 07/30/21 documented as of this encounter
--- OUTSIDE RECORDS SUMMARY | 2024-01-11 09:12 | XMS_ITS | Encounter Summary ---
Author Organization [facility] Address [address] [place] [address] Care Team Providers Care Cold Meat Cook Name Role Phone Leandro Seaman MD Unavailable [phone] Carl Tate DO Primary Care Provider [phone] Reason for Referral * Imaging (Routine) - Closed Specialty Diagnoses / Procedures Referred By Shannan schmitt Referred To Contact Radiology Diagnoses 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) Procedures CT Chest w IV Contrast Pennie Pittman APRN, DNP [address] [address] Phone: tel: fax: Referral ID Status Reason Start Date Expiration Date Visits Re quested Visits Authorized [id number] Closed 04/17/2023 10/16/2024 1 1 Reason for Visit * Reason Comments Follow-up Encounter Details Date Type Department Care Team (Latest Contact Info) Description 04/17/2023 9:22 AM EDT - 04/17/2023 11:59 PM EDT Hospital Encounter [facility] Radiation [address] [id number] [place] [address] Leandro Seaman MD [address] [place] [address] Malignant neoplasm of upper lobe of [...] Sign Reading Time Taken Comments Blood Pressure 108/70 04/17/2023 9:28 AM EDT Pulse 67 04/17/2023 9:28 AM EDT Temperature 36.6 ??C (97.8 ??F) 04/17/2023 9:28 AM ED T Respiratory Rate 16 04/17/2023 9:28 AM EDT Oxygen Saturation 97% 04/17/2023 9:28 AM EDT Inhaled Oxygen Concentration - - Weight 75.8 kg (167 lb 1.7 oz) 04/17/2023 9:28 A M EDT Height 172.7 cm (5' 8 ) 04/17/2023 9:28 AM EDT Body Mass Index 25.41 04/17/2023 9:28 AM EDT documented in this encounter Medications [...] 02/08/2023 4 documented as of this encounter Miscellaneous Notes * Progress Notes - Pennie Pittman, CARBIDE TOOL MAKER, DNP - 04/17/2023 11:00 AM EDT Radiation Oncology Follow Up Patient Name: Carlo Noriega Date of : 1945 77 y.o. Encounter Date: 04/17/2023 Carlo Noriega was seen today at the [facility] in a 3 month [...] NOVOSTE for stent restenosis completed 12/2021 at [facility] ([facility] INTERVAL HISTORY: Carlo Noriega reports generally doing [...] Known Allergies PHYSICAL EXAM: Visit Vitals BP 108/70 Pulse 67 Temp 36.6 ??C (97.8 ??F) (Oral) Resp 16 Ht 1.727 m (5' 8 ) Wt 75.8 kg (167 lb 1.7 oz) SpO2 97% BMI 25.41 kg/m?? Smoking Status Former BSA 1.91 m?? General: Sitting comfortably. No acute distress. HEENT: Head normocephalic and atraumatic. Moist mucus membranes. Eyes: Extraocular movements are intact. Sclerae are anicteric. Neck: Supple, trachea midline, no lymphadenopathy. Respiratory: Symmetric, nonlabored. No obvious crackles, wheezes or cough noted MSK: Moves all extremities spontaneously. No LE edema. Neurological: Alert and oriented x3. Cranial nerves II through XII are grossly intact. Psych: Appropriate mood and affect. IMAGING: Dr Seaman and I independently reviewed images and results. 04/17/23 CT CHEST W IV CONTRAST authorized by: Leandro Seaman MD Narrative & Impression CLINICAL INDICATION: Non-small cell lung cancer, non-metastatic, assess treatment response TECHNIQUE: Multiple CT helical images were obtained from thoracic inlet through upper abdomen with administration of IV contrast. 100 mL of Omnipaque-300 were administered intravenously. Total DLP (Dose-Length Product): 136.12 mGy.cm. [...] Madina Corona MD on 04/17/2023 9:24 AM ASSESSMENT AND PLAN: Carlo Noriega is a very pleasant 77 y.o. year-old male with a prior diagnosis as above. Mr. Noriega is doing well clinically, no acute respiratory complaints. 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 -RTC in [address] Seaman with repeat CT Chest. Orders Placed This Encounter Procedures CT Chest w IV Contrast Creatinine, Plasma Future Appointments Date Time Provider Department Center 07/17/2023 10:00 AM [facility] He will continue to follow with his other healthcare providers in the interim as scheduled. Thank you for the opportunity to participate in the care of the patient. Please contact our department withany questions. Total time 30 minutes, reviewing his treatment plans, previous and current CT and indiscussion with the patient. Sincerely, Pennie Pittman APRN, DNP [address] [address] Cosigned by Leandro Seaman MD at 04/17/2023 12:49 PM EDT Associated attestation - Leandro Seaman MD - 04/17/2023 12:49 PM EDT I attest to being involved in providing substantive part of the medical decision making in patient care. documented in this encounter Plan of Treatment Upcoming Encounters Date Type Department Care Team (Late st Contact Info) Description 01/15/2024 10:00 AM EST Ancillary Procedure [facility] Medicine Specialties [address] [place] [address] 01/15/2024 11:00 AM EST Consult [facility] Medicine Specialties [address] [place] [address] Ida Nayak PA [address] [place] [address] 06/19/2024 11:00 AM EDT Appointment [facility] Radiation [id number] [place] [address] Leandro Seaman MD [address] [place] [address] documented as of this encounter Results * [...] APRN, DNP IMG CT PROCEDURES Final Result documented in this encounter Visit Diagnoses Diagnosis 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)- Primary 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) documented in this encounter Additional Health Concerns Assessment Noted Time A fall risk assessment has been complete d for the patient 04/17/2023 9:35 AM EDT documented as of this encounter Care Teams Cold Meat Cook Relationship Specialty Start Date End Date Carl Tate DO [address] [place] [address] PCP - General 04/17/23 Leandro Seaman MD [address] [address] Consulting Physician Radiation Oncology 07/30/21 documented as of this encounter
--- OUTSIDE RECORDS SUMMARY | 2024-01-11 09:12 | XMS_ITS | Encounter Summary ---
Author Organization Healthcare Address [address] [place] [address] Care Team Providers Care Associate Director Name Role Phone Leandro Seaman MD Unavailable [phone] Carl Tate DO Primary Care Provider [phone] Encounter Details Date Type Department Care Team (Late st Contact Info) Description 05/04/2023 9:40 AM EDT Consult [place] [facility] [address], [address] [place] [address] Sampson Mckeon MD [address] [facility] [address] [place] [address] Coronary artery disease involving [place] heart, unspecified vessel or lesion type, unspecified whether angina present (Primary Dx) Social History Tobacco Use Types [...] Sign Reading Time Taken Comments Blood Pressure 120/72 05/04/2023 9:44 AM EDT Pulse 68 05/04/2023 9:44 AM EDT Temperature - - Respiratory Rate - - Oxygen Saturation 99% 05/04/2023 9:44 AM EDT Inhaled Oxygen Concentration - - Weight 75.3 kg (166 lb) 05/04/2023 9:44 AM EDT Height 172.7 cm (5' 8 ) 05/04/2023 9:44 AM EDT Body Mass Index 25.24 05/04/2023 9:44 AM EDT documented in this encounter Miscellaneous Notes * Progress Notes - Darell Palomino PA - 05/04/2023 9:40 AM EDT Reason for visit / Chief Complaint: Coronary artery disease History of present illness: Carlo Noriega is a 77 y.o. male referred to us in consultation by Dr. Gaffney in regards tocoronary artery disease. Mr. Noriega has a past medical history significant for coronary artery disease status post stents ([id number], LAD, circumflex and RCA) and left upper [...] HLD (hyperlipidemia) 05/03/2023 Hypertension 06/19/2014 Lung cancer ([facility]) radiation tx Malignant neoplasm of upper lobe of left lung ([facility]) 07/30/2020 Osteoporosis 05/03/2023 Surgical History: Past Surgical History: Procedure Laterality Date CARDIAC CATHETERIZATION CHOLECYSTECTOMY N/A Cholecystectomy from [facility] CORONARY STENT PLACEMENT 2021 PTCA with brachy therapy Cx KNEE SURGERY N/A Knee Surgery from [facility] OTHER SURGICAL HISTORY N/A Transcath Intravascular Stent Placement Percutaneous Femoral from [facility] RADIATION THERAPY 2014 and 2021 [facility]ST FRACTURE [...] //Sat 05/19/20 Yes Ciarra Queen MD Tiotropium Braggadocio Monohydrate (Spiriva Respimat) 2.5 MCG/ACT inhaler Inhale [...] for coronary artery disease status post stents ([id number], LAD, circumflex and RCA) and left upper [...] and pre-op testing done today Cosigned by Sampson Mckeon MD at 05/06/2023 12:19 PM EDT Associated attestation - Sampson Mckeon MD - 05/06/2023 12:19 PM EDT The patient was seen by myself and by Advanced Practice Provider (MICHAEL), and care was reviewed with me. documented in this encounter Plan of Treatment Upcoming Encounters Date Type Department Care Team (Late st Contact Info) Description 01/15/2024 10:00 AM EST Ancillary Procedure [facility] Medicine Specialties [address] [place] [address] 01/15/2024 11:00 AM EST Consult [facility] Medicine Specialties [address] [place] [address] Ida Nayak PA [address] [place] [address] 06/19/2024 11:00 AM EDT Appointment [facility] Radiation [id number] [place] [address] Leandro Seaman MD 800 [facility] [address] [place] [address] documented as of this encounter Visit Diagnoses Diagnosis Coronary artery disease involving [place] heart, unspecified vessel or lesion type, unspecified whether angina present- Primary documented in this encounter Additional Health Concerns Assessment Noted Time A fall risk assessment has been complete d for the patient 05/04/2023 9:45 AM EDT A Body Mass Index follow-up plan has been documented for the patient 05/04/2023 11:05 AM EDT documented as of this encounter Care Teams Associate Director Relationship Specialty Start Date End Date Carl Tate DO [address] [place] [address] [id number] PCP - General 04/17/23 Leandro Seaman MD [address] [place] [address] [address] [place] [address] Consulting Physician Radiation Oncology 07/30/21 documented as of this encounter
--- OUTSIDE RECORDS SUMMARY | 2024-01-11 09:12 | XMS_ITS | Encounter Summary ---
Author Organization [facility] Address [address] [place] [address] Care Team Providers Care Dinkey Operator Slag Name Role Phone Leandro Seaman MD Unavailable [phone] Sampson Delgado MD Primary Care Provider [phone] Reason for Referral * Imaging (Routine) - Closed Specialty Diagnoses / Procedures Referred By Contac t Referred To Contact Radiology Diagnoses 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) Procedures CT Chest w IV Contrast Leandro Seaman MD [address] [address] Phone: tel: fax: Referral ID Status Reason Start Date Expiration Date Visits Re quested Visits Authorized [id number] Closed 10/19/2022 04/19/2024 1 1 Reason for Visit * Imaging (Routine) - Closed Specialty Diagnoses / Procedures Referred By Contpeace t Referred To Contact Radiology Diagnoses 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) Procedures CT Chest w IV Contrast Leandro Seaman MD [address] [address] Phone: tel: fax: Referral ID Status Reason Start Date Expiration Date Visits Re quested Visits Authorized [id number] Closed 10/19/2022 04/19/2024 1 1 Encounter Details Date Type Department Care Team (Latest Contact Info) Description 01/18/2023 7:26 AM EST - 01/18/2023 11:59 PM EST Hospital Encounter [facility] Radiology [address] [place] [address] Malignant neoplasm of upper lobe of left [...] Everywhere. * Contrast Imaging Discharge Instructions ([place]) (Fijian) documented in this encounter Medications at Time [...] mouth 1 (one) time each day. 10/03/2022 metoprolol tartrate (Lopressor) 25 MG tablet Take 1 tablet (25 mg) by mouth. 4 ranolazine (Ranexa) 1000 MG 12 hr tablet Take 500 mg by mouth 2 (two) times a day. 07/02/2021 4 documented as of this encounter Plan of Treatment Upcoming Encounters Date Type Department Care Team (Late st Contact Info) Description 01/15/2024 10:00 AM EST Ancillary Procedure [facility] Medicine Specialties [address] [place] [address] 01/15/2024 11:00 AM EST Consult [facility] Medicine Specialties [address], [address] [place] [address] Ida Nayak PA [address] [place] [address] 06/19/2024 11:00 AM EDT Appointment [facility] Radiation [id number] [place] [address] Leandro Seaman MD [address] [place] [address] documented as of this encounter Procedures Procedure Name Priority Date/Time Associated Diagnosis Comments CT CHEST W IV CONTRAST Routine 01/18/2023 8:25 AM EST 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) POCT CREATININE ISTAT UNSOLICITED RESULTS Routine 01/18/2023 7:52 AM EST documented in this encounter Results * CT [...] PROCEDURES Final Resu lt * POCT creatinine (01/18/2023 7:52 AM EST) [facility] Creatinine, Point of Care 1.3 0.8 - 1.3 mg/dL 01/18/2023 7:54 AM EST [facility] POCT eGFR 57 mL/min/1. 73m*2 01/18/2023 7:54 AM EST [facility] Cooper Apprentice ID Vivien Brewster 01/18/2023 7:54 AM EST [email or web address] Device ID [id number] 01/18/2023 7:54 AM EST [facility] Comment 01/18/2023 7:54 AM EST [facility] Comment:Testing performed on i-STAT at the point of care. Reported eGFRcr in mL/min/1.73m2 is based the CKD-EPI 2020 equation that does not use a race coefficient. Blood Venous blood specimen / Unknown 01/18/2023 7:52 AM EST 01/18/2023 7:54 AM EST us Generic Provider Poct LAB POINT OF CARE TEST DOCKED DEVICE UNSOLICITED RESULTS Final Result [facility] [address] [place] [address] documented in this encounter Visit Diagnoses Diagnosis 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) documented in this encounter Administered Medications Inactive Administered Medications - up to 3 most recent administrations Medication Order MAR Action Action Date Dose Rate Site iohexol (OMNIPaque) 300 MG/ML injection 100 mL 100 mL, Intravenous, Once in imaging, 1 dose, Starting on Mon01/18/23 at 0741, Until Mon01/18/23 at 0819, Routine, Imaging Protocol Orders Given 01/18/2023 8:19 AM EST 100 mL documented in this encounter Additional Health Concerns Assessment Noted Time A fall risk assessment has been complete d for the patient 10/19/2022 9:37 AM EDT documented as of this encounter Care Teams Dinkey Operator Slag Relationship Specialty Start Date End Date Sampson Delgado MD [address] [place] [address] PCP - General 04/07/22 04/16/23 Leandro Seaman MD [address] [place] [address] Consulting Physician Radiation Oncology 07/30/21 documented as of this encounter
--- OUTSIDE RECORDS SUMMARY | 2024-01-11 09:12 | XMS_ITS | Encounter Summary ---
Author Organization [facility] Address [address] [place] [address] Care Team Providers Care Processing Talc And Borate Supervisor Name Role Phone Leandro Seaman MD Unavailable [phone] Sampson Delgado MD Primary Care Provider [phone] Encounter Details Date Type Department Care Team (Late Contact Info) Description 02/10/2023 Telephone Radiology Virtual Dept. [address] [place] [address] [facility] angu[facility] [address] [place] [address] Social History Tobacco Use Types Packs/Day Years [...] Encounters Date Type Department Care Team (Late Contact Info) Description 01/15/2024 10:00 AM EST Ancillary Procedure [facility] [address] [facility], 2nd [place] [address] 01/15/2024 11:00 AM EST Consult [facility] Medicine Specialties [address], [address] [place] [address] Ida Nayak, PA [address] [place] [address] 06/19/2024 11:00 AM EDT Appointment [facility] Radiation [id number] [place] [address] Leandro Seaman MD [address] [place] [address] documented as of this encounter Visit Diagnoses Not on filedocumented in this encounter Additional Health Concerns Assessment Noted Time A fall risk assessment has been complete d for the patient 10/19/2022 9:37 AM EDT documented as of this encounter Care Teams Processing Talc And Borate Supervisor Relationship Specialty Start Date End Date Sampson Delgado MD [address] [place] [address] PCP - General 04/07/22 04/16/23 Leandro Seaman MD [address] [place] [address] Consulting Physician Radiation Oncology 07/30/21 documented as of this encounter
--- OUTSIDE RECORDS SUMMARY | 2024-01-11 09:12 | XMS_ITS | Encounter Summary ---
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 Sampson Mckeon MD [address] [address] Phone: tel: fax: [facility] [address], [address] [place] [address] Phone: tel: Referral ID Status Reason Start Date Expiration Date Visits Requested Visits Authorized [id number] Authorized Consult and Treat 05/04/2023 11/02/2024 1 1 Encounter Details Date Type Department Care Team (Late st Contact Info) Description 05/04/2023 Orders Only [facility] Cardiothoracic [address], [address] [place] [address] Sampson Mckeon MD [id number] [place] [address] 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 On the day of surgery/procedure, please order and collect a new ABO/Rh specimen to confirm the blood type and to re-verify the patient's eligibility for a 30 day Type and Screen. Refer to policy A08-125 Blood or Blood Product Transfusions for more detailed instructions. Blood Venous blood specimen / Unknown Venipuncture / Unknown 05/04/2023 11:18 AM EDT 05/04/2023 11:19 AM EDT us Sampson Mckeon MD LAB BLOOD BANK TEST ORDERABL ES Final Result BLOOD BANK [address] [place] [address], * Hemoglobin A1c (05/04/2023 11:18 AM EDT) Hemoglobin A1c 4.9 <5.7 % 05/04/2023 1:10 PM EDT [facility] Blood Venous blood specimen / Unknown Venipuncture / Unknown 05/04/2023 11:18 AM EDT 05/04/2023 11:19 AM EDT Narrative [facility] - 05/04/2023 1:10 PM EDT HA1C Interpretive Data: Diagnosis of Diabetes: Diabetic > or = 6.5% Pre-diabetic 5.7 to 6.4% Non-diabetic < or = 5.6% Glycemic Targets for Type I and Type II Diabetics: Non- Adults <7.0% Adults <6.0% Children and Adolescents <7.5% Source: ??[place] [employer]. Standards of medical care in diabetes,2017. Diabetes Care.2017:40 (suppl 1):S1-S135. HbA1c assay performed by an ion-exchange chromatography method that is certified traceable to the DCCT. Sampson Mckeon MD LAB BLOOD ORDERABLES Final R esult Performing Organization Address [facility] [[email or web address]] de Phone Number [facility] [address] [place] [address] * Protime-INR (05/04/2023 11:18 AM EDT) Prothrombin Time 13.4 12.0 - 14.3 sec LAB COAGULATION METHOD 05/04/2023 1:37 PM EDT HEALTHCARE LAB INR 1.0 0.9 - 1.1 LAB COAGULATION METHOD 05/04/2023 1:37 PM EDT [facility] Blood Venous blood specimen / Unknown Venipuncture / Unknown 05/04/2023 11:18 AM EDT 05/04/2023 11:19 AM EDT Narrative [facility] - 05/04/2023 1:37 PM EDT OPTIMAL INR RANGES FOR PATIENT ON ORAL ANTICOAGULANT THERAPY Prevention of venous thromboembolism ?INR 2.0 to 3.0 In patients with heart disease: Atrial fibrillation ?INR 2.0 to 3.0 Valvular heart disease ? INR 2.0 to 3.0 Tissue heart valves ?INR 2.0 to 3.0 Mechanical prosthetic valves ? INR 2.5 to 3.5 Prevention of recurrent NH ? INR 2.5 to 3.5 us Sampson Mckeon MD LAB BLOOD ORDERABLES Final R esult Performing Organization Address [facility] Co de Phone Number HEALTHCARE LAB [address] [place] [address] * (ABNORMAL) CBC (05/04/2023 11:18 AM EDT) WBC Count 8.62 3.70 - 10.30 10*3/uL LAB HEMATOLOGY METHOD 05/04/2023 1:17 PM EDT [facility] RBC Count 4.79 4.60 - 6.10 10*6/uL LAB HEMATOLOGY METHOD 05/04/2023 1:17 PM EDT [facility] HGB 13.1(L) 13.7 - 17.5 g/dL LAB HEMATOLOGY METHOD 05/04/2023 1:17 PM EDT [facility] HCT 44.4 40.0 - 51.0 % LAB HEMATOLOGY METHOD 05/04/2023 1:17 PM EDT [facility] Platelet Count 242 155 - 369 10*3/uL LAB HEMATOLOGY METHOD 05/04/2023 1:17 PM EDT [facility] MCV 93 79 - 98 fL LAB HEMATOLOGY METHOD 05/04/2023 1:17 PM EDT [facility] MCH 27.3 26.0 - 32.0 pg LAB HEMATOLOGY METHOD 05/04/2023 1:17 PM EDT [facility] MCHC 29.5(L) 30.7 - 35.5 g/dL LAB HEMATOLOGY METHOD 05/04/2023 1:17 PM EDT [facility] RDW 14.0 11.5 - 14.5 % LAB HEMATOLOGY METHOD 05/04/2023 1:17 PM EDT [facility] MPV 10.7 8.8 - 12.5 fL LAB HEMATOLOGY METHOD 05/04/2023 1:17 PM EDT [facility] nRBC 0.0 <=0.0 per 100 WBCs LAB HEMATOLOGY METHOD 05/04/2023 1:17 PM EDT [facility] Blood Venous blood specimen / Unknown Venipuncture / Unknown 05/04/2023 11:18 AM EDT 05/04/2023 11:19 AM EDT us Sampson Mckeon MD LAB BLOOD ORDERABLES Final R esult [facility] [address] [place] [address] * (ABNORMAL) Comprehensive Metabolic Panel, Plasma (05/04/2023 11:18 AM EDT) Glucose, Plasma 108(H) 74 - 99 mg/dL 05/04/2023 1:21 PM EDT [facility] BUN, Plasma 11 8 - 23 mg/dL 05/04/2023 1:21 PM EDT [facility] Creatinine, Plasma 1.03 0.80 - 1.30 mg/dL 05/04/2023 1:21 PM EDT [facility] BUN/Creatinine Ratio 11 05/04/2023 1:21 PM EDT [facility] Sodium, Plasma 141 136 - 145 mmol/L 05/04/2023 1:21 PM EDT [facility] Potassium, Plasma 5.4(H) 3.7 - 4.8 mmol/L 05/04/2023 1:21 PM EDT [facility] Chloride, Plasma 107 97 - 107 mmol/L 05/04/2023 1:21 PM EDT [facility] CO2, Plasma 24 22 - 29 mmol/L 05/04/2023 1:21 PM EDT [facility] Anion Gap 10 6 - 16 mmol/L 05/04/2023 1:21 PM EDT [facility] Total Calcium, Plasma 10.4(H) 8.9 - 10.2 mg/dL 05/04/2023 1:21 PM EDT [facility] Total Protein 7.3 6.3 - 7.9 g/dL 05/04/2023 1:21 PM T [facility] Albumin, Plasma 4.1 3.5 - 5.2 g/dL 05/04/2023 1:21 PM EDT [facility] AST, Plasma 21 10 - 50 U/L 05/04/2023 1:21 PM T [facility] ALT, Plasma 13 10 - 50 U/L 05/04/2023 1:21 PM T [facility] Alkaline Phosphatase, Plasma 118(H) 40 - 115 U/L 05/04/2023 1:21 PM T [facility] Total Bilirubin, Plasma 0.5 0.2 - 1.1 mg/dL 05/04/2023 1:21 PM EDT [facility] eGFRcr 75.8 mL/min/1.7 3m*2 05/04/2023 1:21 PM T [facility] Comment:Reported eGFRcr in m L/min/1.73m2 is based the CKD-EPI 2020 equation that does not use a race coefficient. 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
--- OUTSIDE RECORDS SUMMARY | 2024-01-11 09:12 | XMS_ITS | Encounter Summary ---
Author Organization Healthcare Address [address] [place] [address] Care Team Providers Care Grinder Setup Operator Name Role Phone Leandro Seaman MD Unavailable [phone] Sampson Delgado MD Primary Care Provider [phone] Encounter Details Date Type Department Care Team (Latest Contact Info) Description 07/13/2022 Travel Social History Tobacco Use Types Packs/Day [...] Description 01/15/2024 10:00 AM EST Ancillary Procedure [facility] Medicine Specialties [address] [place] [address] 01/15/2024 11:00 AM EST Consult [facility] [address], [address] [place] [address] Ida Nayak PA [address] [place] [address] 06/19/2024 11:00 AM EDT Appointment [facility] Radiation [address] [facility] [id number] [place] [address] Leandro Seaman MD [address] [address] documented as of this encounter Visit Diagnoses Not on filedocumented in this encounter Additional Health Concerns Assessment Noted Time A fall risk assessment has been complete d for the patient 07/13/2022 10:17 AM EDT documented as of this encounter Care Teams Grinder Setup Operator Relationship Specialty Start Date End Date Sampson Delgado MD [address] [place] [address] PCP - General 04/07/22 04/16/23 Leandro Seaman MD [address] [place] [phone] Consulting Physician Radiation Oncology 07/30/21 documented as of this encounter
--- OUTSIDE RECORDS SUMMARY | 2024-01-11 09:13 | XMS_ITS | Encounter Summary ---
Author Organization Healthcare Address [address] [place] [address] Care Team Providers Care Roll Mill Operator Name Role Phone Leandro Seaman MD Unavailable [phone] Pcp, No Primary Care Provider Unavailabl e Encounter Details Date Type Department Care Team (Latest Contact Info) Description 08/16/2021 6:15 AM EDT - 08/16/2021 11:59 PM EDT Hospital Encounter [facility] Radiation [id number] [place] [address] Discharge Disposition: Still a Patient Social History Tobacco Use Types Packs/Day Years Used Date Smoking Tobacco: Never Smokeless Tobacco: Never Alcohol Use Standard [...] suspected to have Coronavirus/COVID-19? No / Unsure 08/11/2021 10:28 AM EDT documented as of this encounter [...] MG tablet 1 tablet (25 mg). //Mon05/19/2020 albuterol 108 (90 Base) MCG/ACT inhaler 2 puff(s) inhaled 4 times a day 3 bisoprolol (Zebeta) 5 MG tablet TAKE 1 TABLET BY MOUTH ONCE DAILY FOR BLOOD PRESSURE 07/15/2020 3 Cartia XT 180 MG 24 hr capsule Take 180 mg by mouth 1 (one) time each day. 08/02/2019 3 cholestyramine (Questran) 4 g packet USE ONE PACKET DAILY 06/03/2013 3 finasteride (Proscar) 5 MG tablet Take 1 tablet (5 mg) by mouth 1 (one) time each day. 06/16/2020 4 ranolazine (Ranexa) 1000 MG 12 hr tablet Take 500 mg by mouth 2 (two) times a day. 07/02/2021 4 simvastatin (Zocor) 40 MG tablet 1 tab(s) orally once a day (at bedtime) 3 Xarelto 2.5 MG tablet Take 2.5 mg by mouth 2 (two) times a day. 06/14/2021 3 documented as of this encounter Plan of Treatment Upcoming Encounters Date Type Department Care Team (Late st Contact Info) Description 01/15/2024 10:00 AM EST Ancillary Procedure [facility] Medicine Specialties [address] [place] [address] 01/15/2024 11:00 AM EST Consult [facility] Medicine Specialties [address] [place] [address] Ida Nayak PA [address] [place] [address] 06/19/2024 11:00 AM EDT Appointment [facility] Radiation 800 [facility]. [id number] [place] [address] Leandro Seaman MD [address] [address] documented as of this encounter Visit Diagnoses Not on filedocumented in this encounter Additional Health Concerns Assessment Noted Time A fall risk assessment has been complete d for the patient 08/11/2021 2:05 PM EDT documented as of this encounter Care Teams Roll Mill Operator Relationship Specialty Start Date End Date Pcp, No [address] [place] [address] PCP - General Family Medicine 07/30/21 04/06/22 Leandro Seaman MD [address] [address] Consulting Physician Radiation Oncology 07/30/21 documented as of this encounter
--- OUTSIDE RECORDS SUMMARY | 2024-01-11 09:13 | XMS_ITS | Encounter Summary ---
Author Organization Healthcare Address [address] [place] [address] Care Team Providers Care Online Marketing Director Name Role Phone Leandro Seaman MD Unavailable [phone] Pcp, No Primary Care Provider Unavailabl e Encounter Details Date Type Department Care Team (Late st Contact Info) Description 09/01/2021 Orders Only [facility] Radiation [id number] [place] [address] Radiation Oncology, Physician, [address] [place], [place] [id number] Social History Tobacco Use Types Packs/Day Years [...] Description 01/15/2024 10:00 AM EST Ancillary Procedure [facility] [address] [place] [address] 01/15/2024 11:00 AM EST Consult [facility] [address] [place] [address] Ida Nayak PA [address] [place] [address] 06/19/2024 11:00 AM EDT Appointment [facility] Radiation [id number] [place] [phone] Leandro Seaman MD [address] [place] [address] documented as of this encounter Procedures Procedure Name Priority Date/Time Associated Diagnosis Comments RAD ONC ARIA SESSION SUMMARY Routine 09/01/2021 12:02 PM EDT documented in this encounter Results * Rad Onc Aria Session Summary (09/01/2021 12:02 PM EDT) Course ID C2 ARIA RADIATION ONCOLOGY Course Intent Curative ARIA RADIATION ONCOLOGY Course Start Date 08/20/2021 8:33 AM ARIA RADIATION ONCOLOGY Course First Treatment Date 09/01/2021 11:53 AM ARIA RADIATION ONCOLOGY Course Last Treatment Date 09/01/2021 11:56 AM [facility]A RADIATION ONCOLOGY Course Elapsed Days 0 ARIA RADIATION ONCOLOGY Reference Point ID LEROY SBRT ARIA RADIATION ONCOLOGY Reference Point Dosage Given to Date 18 Gy ARIA RADIATION ONCOLOGY Reference Point Session Dosage Given 18 Gy ARIA RADIATION ONCOLOGY Plan ID LEROY SBRT ARIA RADIATION ONCOLOGY Plan Name LEROY SBRT ARIA RADIATION ONCOLOGY Plan Fractions Treated to Date 1 ARIA RADIATION ONCOLOGY Plan Total Fractions Prescribed 3 ARIA RADIATION ONCOLOGY Plan Prescribed Dose Per Fraction 18 Gy ARIA RADIATION ONCOLOGY Plan Total Prescribed Dose 5,400 CGy ARIA RADIATION ONCOLOGY Plan Primary Reference Point LEROY SBRT ARIA RADIATION ONCOLOGY 09/01/2021 12:0 2 PM EDT Physician Radiation Oncology MD RADIATION ONCOLO GY ORDERABLES Final Result [facility] RADIATION ONCOLOGY documented in this encounter Visit Diagnoses Not on filedocumented in this encounter Additional Health Concerns Assessment Noted Time A fall risk assessment has been complete d for the patient 08/11/2021 2:05 PM EDT documented as of this encounter Care Teams Online Marketing Director Relationship Specialty Start Date End Date Pcp, No [address] [place] [address] PCP - General Family Medicine 07/30/21 04/06/22 Leandro Seaman MD 800 [facility] [address] [place] [address] Consulting Physician Radiation Oncology 07/30/21 documented as of this encounter
--- OUTSIDE RECORDS SUMMARY | 2024-01-11 09:13 | XMS_ITS | Encounter Summary ---
Author Organization Healthcare Address [address] [place] [address] Care Team Providers Care Pci Security Consultant Name Role Phone Leandro Seaman MD Unavailable Pcp, No Primary Care Provider Unavailabl e Encounter Details Date Type Department Care Team (Latest Contact Info) Description 08/30/2021 12:10 AM EDT - 08/30/2021 11:59 PM EDT Hospital Encounter [facility] 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 The patient was immobilized in the stereotactic body frame utilizing a customized mold. The stereotactic dose of 1000 cGy was received without difficulty. The patient tolerated treatment today. Therapist Initials: ROSARIO Therapist Initials: CHINYERE Other Clinic Staff Initials: SB IMPRESSION: Today?s treatment was completed successfully. The treatment parameters were establishedwithout difficulty. This document was electronically approved by: Leandro Seaman MD. 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 The patient was immobilized in the stereotactic body frame utilizing a customized mold. The stereotactic dose of 1800 cGy was received without difficulty. The patient tolerated treatment today. Therapist Initials: CHINYERE Therapist Initials: Other Clinic Staff Initials: Click or tap here to enter text. IMPRESSION: Today?s treatment was completed successfully. The treatment parameters were establishedwithout difficulty. This document was electronically approved by: Leandro Seaman MD. 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 The patient was immobilized in the stereotactic body frame utilizing a customized mold. The stereotactic dose of 1800 cGy was received without difficulty. The patient tolerated treatment today. Therapist Initials: Rosario Therapist Initials: CHINYERE Other Clinic Staff Initials: MARYJO IMPRESSION: Today?s treatment was completed successfully. The treatment parameters were establishedwithout difficulty. This document was electronically approved by: Leandro Seaman MD. documented in this encounter Plan of Treatment Upcoming Encounters Date Type Department Care Team (Late st Contact Info) Description 01/15/2024 10:00 AM EST Ancillary Procedure [facility] Medicine Specialties [address], [address] [place] [address] 01/15/2024 11:00 AM EST Consult [facility] Medicine Specialties [address], [address] [place] [address] Ida Nayak PA [address] [place] [address] 06/19/2024 11:00 AM EDT Appointment [facility] [id number] [place] [address] Leandro Seaman MD [address] [place] [address] documented as of this encounter Visit Diagnoses Not on filedocumented in this encounter Additional Health Concerns Assessment Noted Time A fall risk assessment has been complete d for the patient 08/11/2021 2:05 PM EDT documented as of this encounter Care Teams Pci Security Consultant Relationship Specialty Start Date End Date Pcp, No [address] [place] [address] PCP - General Family Medicine 07/30/21 04/06/22 Leandro Seaman MD 800 [facility] [address] [place] [address] Consulting Physician Radiation Oncology 07/30/21 documented as of this encounter
--- OUTSIDE RECORDS SUMMARY | 2024-01-11 09:13 | XMS_ITS | Encounter Summary ---
Author Organization Healthcare Address [address] [place] [address] Care Team Providers Care Roving Court Reporter Name Role Phone Leandro Seaman MD Unavailable [phone] Pcp, No Primary Care Provider Unavailabl e Encounter Details Date Type Department Care Team (Latest Contact Info) Description 10/06/2021 Travel Social History Tobacco Use Types Packs/Day [...] suspected to have Coronavirus/COVID-19? No / Unsure 10/06/2021 5:04 PM EDT documented as of this encounter Plan of Treatment Upcoming Encounters Date Type Department Care Team (Late st Contact Info) Description 01/15/2024 10:00 AM EST Ancillary Procedure [facility] Medicine Specialties [address] [place] [address] 01/15/2024 11:00 AM EST Consult [facility] Medicine Specialties [address], [address] [place] [address] Ida Nayak PA [address] [place] [address] 06/19/2024 11:00 AM EDT Appointment [facility] [address] [facility]. [id number] [place] [address] Leandro Seaman MD 800 [facility] [address] [place] [address] documented as of this encounter Visit Diagnoses Not on filedocumented in this encounter Additional Health Concerns Assessment Noted Time A fall risk assessment has been complete d for the patient 08/11/2021 2:05 PM EDT documented as of this encounter Care Teams Roving Court Reporter Relationship Specialty Start Date End Date Pcp, No 800 [place] [address] PCP - General Family Medicine 07/30/21 04/06/22 Leandro Seaman MD [address] [address] Consulting Physician Radiation Oncology 07/30/21 documented as of this encounter
--- OUTSIDE RECORDS SUMMARY | 2024-01-11 09:13 | XMS_ITS | Encounter Summary ---
Author Organization Healthcare Address [address] [place] [address] Care Team Providers Care Flatlock Sewing Machine Operator Name Role Phone Leandro Seaman MD Unavailable [phone] Pcp, No Primary Care Provider Unavailabl e Encounter Details Date Type Department Care Team (Latest Contact Info) Description 01/06/2022 Travel Social History Tobacco Use Types Packs/Day Years Used Date Smoking Tobacco: Former Cigarettes Q uit: 2004 Smokeless Tobacco: Never Alcohol Use Standard [...] suspected to have Coronavirus/COVID-19? No / Unsure 01/06/2022 8:39 AM EST documented as of this encounter Plan of Treatment Upcoming Encounters Date Type Department Care Team (Late st Contact Info) Description 01/15/2024 10:00 AM EST Ancillary Procedure [facility] Medicine Specialties [address] [place] [address] 01/15/2024 11:00 AM EST Consult [facility] Medicine Specialties [address], [address] [place] [address] Ida Nayak PA [address] [place] [address] 06/19/2024 11:00 AM EDT Appointment [facility] [id number] [place] [address] Leandro Seaman MD [address] [facility] [address] [place] [address] documented as of this encounter Visit Diagnoses Not on filedocumented in this encounter Additional Health Concerns Assessment Noted Time A fall risk assessment has been complete d for the patient 01/06/2022 10:52 AM EST documented as of this encounter Care Teams Flatlock Sewing Machine Operator Relationship Specialty Start Date End Date Pcp, No 800 [place] [address] PCP - General Family Medicine 07/30/21 04/06/22 Leandro Seaman MD [address] [facility] [address] [place] [address] Consulting Physician Radiation Oncology 07/30/21 documented as of this encounter
--- OUTSIDE RECORDS SUMMARY | 2024-01-11 09:13 | XMS_ITS | Encounter Summary ---
Author Organization Healthcare Address [address] [place] [address] Care Team Providers Care Meters Superintendent Name Role Phone Leandro Seaman MD Unavailable [phone] Pcp, No Primary Care Provider Unavailabl e Reason for Visit * Radiation Therapy (Routine) - Closed Specialty Diagnoses / Procedures Referred By Shannan t Referred To Contact Radiation Oncology Diagnoses CT Sim, L-lung, BK Procedures CT SIMULATION [facility] [address] [address] Phone: tel: fax: Leandro Seaman MD [address] [address] Phone: tel: fax: Referral ID Status Reason Start Date Expiration Date Visits Re quested Visits Authorized [id number] Closed 08/20/2021 02/19/2023 1 1 Encounter Details Date Type Department Care Team (Latest Contact Info) Description 08/20/2021 9:39 AM EDT - 08/20/2021 11:59 PM EDT Hospital Encounter [facility] [address] [address] Leandro Seaman MD [address] [place] [address] Discharge Disposition: Still a Patient Social History [...] In the last 10 days, have elena vega been in contact with someone who was [...] [facility] Medicine Specialties [address], [address] [place] [address] 01/15/2024 11:00 AM EST Consult [facility] Medicine Specialties [address], [address] [place] [address] Ida Nayak PA [address] [place] [address] 06/19/2024 11:00 AM EDT Appointment [facility] [id number] [place] [address] Leandro Seaman MD [address] [phone] documented as of this encounter Visit Diagnoses Not on filedocumented in this encounter Additional Health Concerns Assessment Noted Time A fall risk assessment has been complete d for the patient 08/11/2021 2:05 PM EDT documented as of this encounter Care Teams Meters Superintendent Relationship Specialty Start Date End Date Pcp, No [address] [place] [address] PCP - General Family Medicine 07/30/21 04/06/22 Leandro Seaman MD [address] [address] Consulting Physician Radiation Oncology 07/30/21 documented as of this encounter
--- OUTSIDE RECORDS SUMMARY | 2024-01-11 09:13 | XMS_ITS | Encounter Summary ---
Author Organization Healthcare Address [address] [place] [address] Care Team Providers Care Mining Helper Name Role Phone Leandro Seaman MD Unavailable [phone] Pcp, No Primary Care Provider Unavailabl e Encounter Details Date Type Department Care Team (Latest Contact Info) Description 08/23/2021 6:15 AM EDT - 08/23/2021 11:59 PM EDT Hospital Encounter [facility] [id number] [place] [address] Discharge Disposition: Still a Patient Social History [...] Description 01/15/2024 10:00 AM EST Ancillary Procedure [facility] Medicine Specialties [address] [place] [address] 01/15/2024 11:00 AM EST Consult [facility] Medicine Specialties [address] [place] [address] Ida Nayak PA [address] [place] [address] 06/19/2024 11:00 AM EDT Appointment [facility] 800 [facility]. [id number] [place] [address] Leandro Seaman MD [address] [address] documented as of this encounter Visit Diagnoses Not on filedocumented in this encounter Additional Health Concerns Assessment Noted Time A fall risk assessment has been complete d for the patient 08/11/2021 2:05 PM EDT documented as of this encounter Care Teams Mining Helper Relationship Specialty Start Date End Date Pcp, No [address] [place] [address] PCP - General Family Medicine 07/30/21 04/06/22 Leandro Seaman MD [address] [address] Consulting Physician Radiation Oncology 07/30/21 documented as of this encounter
--- OUTSIDE RECORDS SUMMARY | 2024-01-11 09:13 | XMS_ITS | Encounter Summary ---
Author Organization Healthcare Address [address] [place] [address] Care Team Providers Care Insurance Account Specialist Name Role Phone Leandro Seaman MD Unavailable [phone] Pcp, No Primary Care Provider Unavailabl e Encounter Details Date Type Department Care Team (Latest Contact Info) Description 09/06/2021 Travel Social History Tobacco Use Types Packs/Day [...] suspected to have Coronavirus/COVID-19? No / Unsure 09/02/2021 11:09 AM EDT documented as of this encounter Plan of Treatment Upcoming Encounters Date Type Department Care Team (Late st Contact Info) Description 01/15/2024 10:00 AM EST Ancillary Procedure [facility] Medicine Specialties [address] [place] [address] 01/15/2024 11:[address] [facility] Medicine Specialties [address] [place] [address] Ida Nayak PA [address] [place] [address] 06/19/2024 11:00 AM EDT Appointment [facility] 800 [facility]. [id number] [place] [address] Leandro Seaman MD 800 [facility] [address] [place] [address] documented as of this encounter Visit Diagnoses Not on filedocumented in this encounter Additional Health Concerns Assessment Noted Time A fall risk assessment has been complete d for the patient 08/11/2021 2:05 PM EDT documented as of this encounter Care Teams Insurance Account Specialist Relationship Specialty Start Date End Date Pcp, No 800 [place] [address] PCP - General Family Medicine 07/30/21 04/06/22 Leandro Seaman MD [address] [address] Consulting Physician Radiation Oncology 07/30/21 documented as of this encounter
--- OUTSIDE RECORDS SUMMARY | 2024-01-11 09:13 | XMS_ITS | Encounter Summary ---
Author Organization [facility] Address [address] [place] [address] Care Team Providers Care Outsole Compressor Name Role Phone Leandro Seaman MD Unavailable [phone] Pcp, No Primary Care Provider Unavailabl e Reason for Referral * Radiation Therapy (Routine) - Closed Specialty Diagnoses / Procedures Referred By Contac t Referred To Contact Radiation Oncology Diagnoses 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) Procedures Rad Onc Intent to Treat Leandro Seaman MD [address] [address] Phone: tel: fax: [facility] 800 [facility]. [id number] [place] [address] Phone: tel: fax: Referral ID Status Reason Start Date Expiration Date V isits Requested Visits Authorized [id number] Closed Perform Procedure 08/11/2021 02/10/2023 3 3 Reason for Visit * Radiation Therapy (Routine) - Closed Specialty Diagnoses / Procedures Referred By Contac t Referred To Contact Radiation Oncology Diagnoses 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) Procedures Rad Onc Intent to Treat Leandro Seaman MD [address] [address] Phone: tel: fax: [facility] [id number] [place] [address] Phone: tel: fax: Referral ID Status Reason Start Date Expiration Date V isits Requested Visits Authorized [id number] Closed Perform Procedure 08/11/2021 02/10/2023 3 3 Encounter Details Date Type Department Care Team (Latest Contact Info) Description 09/01/2021 11:12 AM EDT - 09/01/2021 11:34 AM EDT Hospital Encounter [facility] [id number] [place] [address] Leandro Seaman MD [address] [place] [address] 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) Discharge Disposition: Still a Patient Social History [...] Description 01/15/2024 10:00 AM EST Ancillary Procedure [facility] Medicine Specialties [address] [place] [address] 01/15/2024 11:00 AM EST Consult [facility] Medicine Specialties [address], [address] [place] [address] Ida Nayak PA [address] [place] [address] 06/19/2024 11:00 AM EDT Appointment [facility] [id number] [place] [address] Leandro Seaman MD [address] [address] Scheduled Orders Name Type Priority Associated Diagnoses Orde r Schedule Rad Onc Intent to Treat Radiation Oncology Routine 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) Once for 1 Occurrences starting 09/01/2021 until 09/01/2021 documented as of this encounter Visit Diagnoses Diagnosis 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) documented in this encounter Additional Health Concerns Assessment Noted Time A fall risk assessment has been complete d for the patient 08/11/2021 2:05 PM EDT documented as of this encounter Care Teams Outsole Compressor Relationship Specialty Start Date End Date Pcp, No [address] [place] [address] PCP - General Family Medicine 07/30/21 04/06/22 Leandro Saeman MD [address] [address] Consulting Physician Radiation Oncology 07/30/21 documented as of this encounter
--- OUTSIDE RECORDS SUMMARY | 2024-01-11 09:13 | XMS_ITS | Encounter Summary ---
Author Organization Healthcare Address [address] [place] [address] Care Team Providers Care Principal Technical Specialist Name Role Phone Leandro Seaman MD Unavailable [phone] Pcp, No Primary Care Provider Unavailabl e Encounter Details Date Type Department Care Team (Late st Contact Info) Description 09/03/2021 Orders Only [facility] [id number] [place] [address] Radiation Oncology, Physician, [address] [place], [place] [id number] Social History Tobacco Use Types Packs/Day Years [...] Description 01/15/2024 10:00 AM EST Ancillary Procedure [facility] Medicine Specialties [address] [place] [address] 01/15/2024 11:00 AM EST Consult [facility] [address] [place] [address] Ida Nayak PA [address] [place] [address] 06/19/2024 11:00 AM EDT Appointment [facility] [id number] [place] [address] Leandro Seaman MD [address] [place] [address] documented as of this encounter Procedures Procedure Name Priority Date/Time Associated Diagnosis Comments RAD ONC ARIA SESSION SUMMARY Routine 09/03/2021 12:24 PM EDT documented in this encounter Results * Rad Onc Aria Session Summary (09/03/2021 12:24 PM EDT) Course ID C2 ARIA RADIATION ONCOLOGY Course Intent Curative ARIA RADIATION ONCOLOGY Course Start Date 08/20/2021 8:33 AM ARIA RADIATION ONCOLOGY Course First Treatment Date 09/01/2021 11:53 AM ARIA RADIATION ONCOLOGY Course Last Treatment Date 09/03/2021 12:19 PM ARIA RADIATION ONCOLOGY Course Elapsed Days 2 ARIA RADIATION ONCOLOGY Reference Point ID LEROY SBRT ARIA RADIATION ONCOLOGY Reference Point Dosage Given to Date 36 Gy ARIA RADIATION ONCOLOGY Reference Point Session Dosage Given 18 Gy ARIA RADIATION ONCOLOGY Plan ID LEROY SBRT ARIA RADIATION ONCOLOGY Plan Name LEROY SBRT ARIA RADIATION ONCOLOGY Plan Fractions Treated to Date 2 ARIA RADIATION ONCOLOGY Plan Total Fractions Prescribed 3 ARIA RADIATION ONCOLOGY Plan Prescribed Dose Per Fraction 18 Gy ARIA RADIATION ONCOLOGY Plan Total Prescribed Dose 5,400 CGy ARIA RADIATION ONCOLOGY Plan Primary Reference Point LEROY SBRT [facility]A RADIATION ONCOLOGY 09/03/2021 12:2 4 PM EDT Physician Radiation Oncology MD RADIATION ONCOLO GY ORDERABLES Final Result BHARATIA RADIATION ONCOLOGY documented in this encounter Visit Diagnoses Not on filedocumented in this encounter Additional Health Concerns Assessment Noted Time A fall risk assessment has been complete d for the patient 08/11/2021 2:05 PM EDT documented as of this encounter Care Teams Principal Technical Specialist Relationship Specialty Start Date End Date Pcp, No 800 [place] [address] PCP - General Family Medicine 07/30/21 04/06/22 Leandro Seaman MD 800 [facility] [address] [place] [address] Consulting Physician Radiation Oncology 07/30/21 documented as of this encounter
--- OUTSIDE RECORDS SUMMARY | 2024-01-11 09:13 | XMS_ITS | Encounter Summary ---
Author Organization Healthcare Address [address] [place] [address] Care Team Providers Care Hoisting Laborer Name Role Phone Leandro Seaman MD Unavailable [phone] Pcp, No Primary Care Provider Unavailabl e Encounter Details Date Type Department Care Team (Latest Contact Info) Description 09/06/2021 12:10 AM EDT - 09/06/2021 11:36 AM EDT Hospital Encounter [facility] [id number] [place] [address] Discharge Disposition: Still a Patient Social History [...] Progress Notes - Leandro Seaman MD - 09/06/2021 11:47 AM EDT Diagnosis: Primary Z51.0 - Encounter for antineoplastic radiation therapy, Diagnosed 09/01/2021 (Active) Primary C34.12 - Malignant neoplasm of upper lobe, left bronchus or lung, Diagnosed 08/11/2021 (Active) Secondary Z92.3 - Personal history of irradiation, Diagnosed 04/17/2015 (Active) Date of Service: 09/06/2021 CARLO NORIEGA received 3 of 3 scheduled Stereotactic Body Radiation Treatment for their C34.12 - Malignant neoplasm of upper lobe, left bronchus or lung, Diagnosed 08/11/2021 (Active) on 09/06/2021 under the direction of Leandro Seaman MD. The patient was immobilized in the stereotactic body frame utilizing a customized mold. The stereotactic dose of 1800 cGy was received without difficulty. The patient tolerated treatment today. Therapist Initials: SHA Therapist Initials: MARYJO Other Clinic Staff Initials: DE IMPRESSION: Today?s treatment was completed successfully. The treatment parameters were establishedwithout difficulty. This document was electronically approved by: Leandro Seaman MD. * Progress Notes - Leandro Seaman MD - 09/06/2021 11:47 AM EDT Diagnosis: Primary Z51.0 - Encounter for antineoplastic radiation therapy, Diagnosed 09/01/2021 (Active) Primary C34.12 - Malignant neoplasm of upper lobe, left bronchus or lung, Diagnosed 08/11/2021 (Active) Secondary Z92.3 - Personal history of irradiation, Diagnosed 04/17/2015 (Active) Date of Service: 09/06/2021 Procedure: Stereotactic Body Radiation Therapy Indications: CARLO NORIEGA is a 76 old Male diagnosed with C34.12 - Malignant neoplasm of upper lobe, left bronchus or lung, Diagnosed 08/11/2021 (Active) (inoperable early stage lung cancer). Description of Procedure: The patient was placed on the Linear accelerator treatment table and all the treatment parameters were verified in conjunction with physicist. Immobilization was customized to patient utilizing the stereotactic body frame and abdominal compression to decrease internal organ motion. The tumor area was imaged for localization, tumor tracking, and any gating application as well. Real-time adjustments in response to patient motion, target movement ensuring accuracy and safety were made. CARLO NORIEGA received Stereotactic Body Radiation with a course of high dose per fraction hypofractionated radiation delivery, with the per treatment dose of 1800 cGy each for 3fractions. Patient tolerated 3 fractions well. Plan: Plan to see patient back in Radiation Medicine for follow-up visit in 4 weeks. This document was electronically approved by: Leandro Seaman Cc: [facility] medical records documented in this encounter Plan of Treatment Upcoming Encounters Date Type Department Care Team (Late st Contact Info) Description 01/15/2024 10:00 AM EST Ancillary Procedure [facility] Medicine Specialties [address], [address] [place] [address] 01/15/2024 11:00 AM EST Consult [facility] Medicine Specialties [address], [address] [place] [address] Ida Nayak PA [address] [place] [address] 06/19/2024 11:00 AM EDT Appointment [facility] [id number] [place] [address] Leandro Seaman MD 800 [facility] [address] [place] [address] documented as of this encounter Visit Diagnoses Not on filedocumented in this encounter Additional Health Concerns Assessment Noted Time A fall risk assessment has been complete d for the patient 08/11/2021 2:05 PM EDT documented as of this encounter Care Teams Hoisting Laborer Relationship Specialty Start Date End Date Pcp, No [address] [place] [address] PCP - General Family Medicine 07/30/21 04/06/22 Leandro Seaman MD [address] [place] [address] Consulting Physician Radiation Oncology 07/30/21 documented as of this encounter
--- OUTSIDE RECORDS SUMMARY | 2024-01-11 09:13 | XMS_ITS | Encounter Summary ---
Author Organization Healthcare Address [address] [place] [address] Care Team Providers Care Tablet Tester Name Role Phone Leandro Seaman MD Unavailable [phone] Pcp, No Primary Care Provider Unavailabl e Encounter Details Date Type Department Care Team (Latest Contact Info) Description 04/03/2022 Travel Social History Tobacco Use Types Packs/Day [...] was confirmed or suspected to have Coronavirus/COVID-19? Yes 04/03/2022 3:50 PM EST documented as of this encounter Plan of Treatment Upcoming Encounters Date Type Department Care Team (Late st Contact Info) Description 01/15/2024 10:00 AM EST Ancillary Procedure [facility] Medicine Specialties [address] [place] [address] 01/15/2024 11:00 AM EST Consult [facility] Medicine Specialties [address], [address] [place] [address] Ida Nayak PA [address] [place] [address] 06/19/2024 11:00 AM EDT Appointment [facility] 800 [facility]. [id number] [place] [address] Leandro Seaman MD 800 [facility] [address] [place] [address] documented as of this encounter Visit Diagnoses Not on filedocumented in this encounter Additional Health Concerns Assessment Noted Time A fall risk assessment has been complete d for the patient 01/06/2022 10:52 AM EST documented as of this encounter Care Teams Tablet Tester Relationship Specialty Start Date End Date Pcp, No [address] [place] [address] PCP - General Family Medicine 07/30/21 04/06/22 Leandro Seaman MD [address] [address] Consulting Physician Radiation Oncology 07/30/21 documented as of this encounter
--- OUTSIDE RECORDS SUMMARY | 2024-01-11 09:13 | XMS_ITS | Encounter Summary ---
Author Organization Healthcare Address [address] [place] [address] Care Team Providers Care Wildlife Conservation Officer Name Role Phone Leandro Seaman MD Unavailable [phone] Pcp, No Primary Care Provider Unavailabl e Encounter Details Date Type Department Care Team (Latest Contact Info) Description 08/11/2021 Travel Social History Tobacco Use Types Packs/Day [...] Description 01/15/2024 10:00 AM EST Ancillary Procedure [facility] Medicine Specialties [address], [address] [place] [address] 01/15/2024 11:00 AM EST Consult [facility] Medicine Specialties [address], [address] [place] [address] Ida Nayak PA [address] [place] [address] 06/19/2024 11:00 AM EDT Appointment [facility] 800 [facility]. [id number] [place] [address] Leandro Seaman MD 800 [facility] [address] [place] [address] documented as of this encounter Visit Diagnoses Not on filedocumented in this encounter Additional Health Concerns Assessment Noted Time A fall risk assessment has been complete d for the patient 08/11/2021 2:05 PM EDT documented as of this encounter Care Teams Wildlife Conservation Officer Relationship Specialty Start Date End Date Pcp, No 800 [place] [address] PCP - General Family Medicine 07/30/21 04/06/22 Leandro Seaman MD [address] [address] Consulting Physician Radiation Oncology 07/30/21 documented as of this encounter
--- OUTSIDE RECORDS SUMMARY | 2024-01-11 09:13 | XMS_ITS | Encounter Summary ---
Author Organization Healthcare Address [address] [place] [address] Care Team Providers Care Sql Database Administrator Name Role Phone Leandro Seaman MD Unavailable [phone] Pcp, No Primary Care Provider Unavailabl e Encounter Details Date Type Department Care Team (Latest Contact Info) Description 09/04/2021 Travel Social History Tobacco Use Types Packs/Day [...] 10:00 AM EST Ancillary Procedure [facility] Medicine Specialties [address] [place] [address] 01/15/2024 11:00 AM EST Consult [facility] Medicine Specialties [address] [place] [address] Ida Nayak PA [address] [place] [address] 06/19/2024 11:00 AM EDT Appointment [facility] 800 [facility]. [id number] [place] [address] Leandro Seaman MD 800 [facility] [address] [place] [address] documented as of this encounter Visit Diagnoses Not on filedocumented in this encounter Additional Health Concerns Assessment Noted Time A fall risk assessment has been complete d for the patient 08/11/2021 2:05 PM EDT documented as of this encounter Care Teams Sql Database Administrator Relationship Specialty Start Date End Date Pcp, No 800 [place] [address] PCP - General Family Medicine 07/30/21 04/06/22 Leandro Seaman MD [address] [address] Consulting Physician Radiation Oncology 07/30/21 documented as of this encounter
--- OUTSIDE RECORDS SUMMARY | 2024-01-11 09:13 | XMS_ITS | Encounter Summary ---
Author Organization Healthcare Address [address] [place] [address] Care Team Providers Care Project Management Professional Name Role Phone Leandro Seaman MD Unavailable Pcp, No Primary Care Provider Unavailabl e Encounter Details Date Type Department Care Team (Latest Contact Info) Description 09/01/2021 11:35 AM EDT - 09/01/2021 11:59 PM EDT Hospital Encounter [facility] 800 [facility]. [id number] [place] [address] Leandro Seaman MD 800 [facility] [address] [place] [address] Discharge Disposition: Still a Patient Social [...] Description 01/15/2024 10:00 AM EST Ancillary Procedure [facility] Medicine Specialties [address] [place] [address] 01/15/2024 11:00 AM EST Consult [facility] Medicine Specialties [address] [place] [address] Ida Nayak PA [address] [place] [address] 06/19/2024 11:00 AM EDT Appointment [facility] [id number] [place] [address] Leandro Seaman MD [address] [facility] [address] [place] [address] documented as of this encounter Visit Diagnoses Not on filedocumented in this encounter Additional Health Concerns Assessment Noted Time A fall risk assessment has been complete d for the patient 08/11/2021 2:05 PM EDT documented as of this encounter Care Teams Project Management Professional Relationship Specialty Start Date End Date Pcp, No 800 [place] [address] PCP - General Family Medicine 07/30/21 04/06/22 Leandro Seaman MD 800 [facility] [address] [place] [address] Consulting Physician Radiation Oncology 07/30/21 documented as of this encounter
--- OUTSIDE RECORDS SUMMARY | 2024-01-11 09:13 | XMS_ITS | Encounter Summary ---
Author Organization Healthcare Address [address] [place] [address] Care Team Providers Care Customer Relations Representative Name Role Phone Leandro Seaman MD Unavailable [phone] Pcp, No Primary Care Provider Unavailabl e Encounter Details Date Type Department Care Team (Latest Contact Info) Description 09/02/2021 Travel Social History Tobacco Use Types Packs/Day [...] Description 01/15/2024 10:00 AM EST Ancillary Procedure [facility] Medicine Specialties [address], [address] [place] [address] 01/15/2024 11:00 AM EST Consult [facility] Medicine Specialties [address], [address] [place] [address] Ida Nayak PA [address] [place] [address] 06/19/2024 11:00 AM EDT Appointment [facility] 800 [facility]. [id number] [place] [address] Leandro Seaman MD 800 [facility] [address] [place] [address] documented as of this encounter Visit Diagnoses Not on filedocumented in this encounter Additional Health Concerns Assessment Noted Time A fall risk assessment has been complete d for the patient 08/11/2021 2:05 PM EDT documented as of this encounter Care Teams Customer Relations Representative Relationship Specialty Start Date End Date Pcp, No 800 [place] [address] PCP - General Family Medicine 07/30/21 04/06/22 Leandro Seaman MD [address] [address] Consulting Physician Radiation Oncology 07/30/21 documented as of this encounter
--- OUTSIDE RECORDS SUMMARY | 2024-01-11 09:13 | XMS_ITS | Encounter Summary ---
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 [place] [address] Cruzito Seaman MD [address] [address] 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) (Primary Dx) Discharge Disposition: Still a Patient Social History Tobacco Use Types Packs/Day Years Used Date Smoking Tobacco: Former Cigarettes Q uit: 2003 Smokeless Tobacco: Never Tobacco Cessation:Counseling Given: Not [...] Sign Reading Time Taken Comments Blood Pressure 136/74 01/06/2022 10:52 AM EST Pulse 99 01/06/2022 10:52 AM EST Temperature - - Respiratory Rate 15 01/06/2022 10:52 AM EST Oxygen Saturation 96% 01/06/2022 10:52 AM EST Inhaled Oxygen Concentration - - Weight 69.9 kg (154 lb 1.6 oz) 01/06/2022 10:52 AM EST Height - - Body Mass Index 23.43 07/30/2020 11:04 AM EDT documented in this [...] encounter Miscellaneous Notes * Progress Notes - Cruzito Seaman MD - 01/06/2022 11:00 AM EST [facility] RADIATION MEDICINE RADIATION ONCOLOGY FOLLOW-UP NOTE PATIENT NAME: Carlo Noriega : 1945 DATE OF SERVICE: 01/06/2022 DIAGNOSIS AND Cancer Staging 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 PET/CT follow up shows FDG uptakein the left apical nodule c/w clinically diagnosed stage IA2 malignancy of the left upper lobe. With high pre-test probability, the patient has made a decision to not pursue biopsy and to have definitive treatment with SBRT. His clinically diagnosed lung cancer was treated with SBRT to 5400 cGy in 3 fractions completed on 09/06/21. He returns in 3 month f/u. 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 Overall he feels well. MEDICATIONS: Reviewed ALLERGIES: Reviewed SOCIAL HISTORY: Changes noted in the HPI if applicable PHYSICAL EXAM: Vital Signs: Visit Vitals BP 136/74 Pulse 99 Resp 15 Wt 69.9 kg (154 lb 1.6 oz) SpO2 96% BMI 23.43 kg/m?? Smoking Status Former BSA 1.83 m?? Patient appears comfortable, seated in NAD Vitals reviewed. Oriented X3 CN's II-XII appear grossly normal No obvious adenopathy in neck No back pain or other palpable pain No crackles, wheezes or respiratory distress PPP No peripheral edema Strength/sensation of extremities appears normal PATHOLOGY AND LABORATORY STUDIES: All pertinent lab and pathology results were reviewed. 06/13/2014 DIAGNOSIS LUNG, LEFT UPPER LOBE, TRANSBRONCHIAL BIOPSY: - INVASIVE POORLY DIFFERENTIATED NON-SMALL CELL CARCINOMA, MOST CONSISTENT WITH ADENOCARCINOMA (SEE COMMENT). IMAGING: CT chest dated 01/06/2022: No signal interval change in size of spiculated left upper lobe nodule. No new suspicious nodules or enlarged adenopathy. Marginal interval increase in size of left adrenal nodule. Stable smaller right adrenal nodule. ASSESSMENT AND PLAN: Carlo Noriega is a 76 y.o. 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 PET/CT follow up shows FDG uptakein the left apical nodule c/w clinically diagnosed stage IA2 malignancy of the left upper lobe. With high pre-test probability, the patient has made a decision to not pursue biopsy and to have definitive treatment with SBRT. His clinically diagnosed lung cancer was treated with SBRT to 5400 cGy in 3 fractions completed on 09/06/21. 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 - RTC [address] chest w IV contrast All of his questions were answered to his satisfaction. Mr. Noriega has been given a printout regarding future appointments and the plan of care. He has our contact information should he have questions or concerns. Time spent today : 20 minutes reviewing his treatment plan, images and reports and in direct discussion with the patient and his family. documented in this encounter Plan of Treatment Upcoming Encounters Date Type Department Care Team (Late st Contact Info) Description 01/15/2024 10:00 AM EST Ancillary Procedure [facility] Medicine Specialties [address] [place] [address] 01/15/2024 11:00 AM EST Consult [facility] Medicine Specialties [address] [place] [address] Ida Nayak PA [address] [place] [address] 06/19/2024 11:00 AM EDT Appointment [facility] [id number] [place] [address] Cruzito Seaman MD [address] [place] [address] documented as of this encounter Results * [...] WO IV CONTRAST ordered by CRUZITO SEAMAN, [id number] CLINICAL INDICATION: Non-small cell lung cancer, non-metastatic, [...] CHEST WO IV CONTRAST ordered by CRUZITO SEAMAN,[id number] CLINICAL INDICATION: Non-small cell lung cancer, non-metastatic, [...] signing this report, I, the attending physician, azaelat I have personally reviewed the images/data for the aboveexamination(s) and agree with the final edited report. Dictated by Talon Ervin MD on 04/07/2022 10:15 AM Signed by Sampson Cast MD on 04/07/2022 10:58 AM us Cruzito Seaman MD IMG CT PROCEDURES Final Resu [...] documented as of this encounter Care Teams Armature Winder Helper Repair Relationship Specialty Start Date End Date Pcp, No 800 [place] [address] PCP - General Family Medicine 07/30/21 04/06/22 Cruzito Seaman MD [address] [address] Consulting Physician Radiation Oncology 07/30/21 documented as of this encounter
--- OUTSIDE RECORDS SUMMARY | 2024-01-11 09:13 | XMS_ITS | Encounter Summary ---
Author Organization Healthcare Address [address] [place] [address] Care Team Providers Care Foundation Drill Operator Helper Name Role Phone Leandro Seaman MD Unavailable [phone] Pcp, No Primary Care Provider Unavailabl e Encounter Details Date Type Department Care Team (Latest Contact Info) Description 08/23/2021 Travel Social History Tobacco Use Types Packs/Day [...] Description 01/15/2024 10:00 AM EST Ancillary Procedure [facility] Medicine Specialties [address] [place] [address] 01/15/2024 11:00 AM EST Consult [facility] Medicine Specialties [address], [address] [place] [address] Ida Nayak PA [address] [place] [address] 06/19/2024 11:00 AM EDT Appointment [facility] 800 [facility]. [id number] [place] [address] Leandro Seaman MD 800 [facility] [address] [place] [address] documented as of this encounter Visit Diagnoses Not on filedocumented in this encounter Additional Health Concerns Assessment Noted Time A fall risk assessment has been complete d for the patient 08/11/2021 2:05 PM EDT documented as of this encounter Care Teams Foundation Drill Operator Helper Relationship Specialty Start Date End Date Pcp, No 800 [place] [address] PCP - General Family Medicine 07/30/21 04/06/22 Leandro Seaman MD [address] [address] Consulting Physician Radiation Oncology 07/30/21 documented as of this encounter
--- OUTSIDE RECORDS SUMMARY | 2024-01-11 09:13 | XMS_ITS | Encounter Summary ---
Author Organization Healthcare Address [address] [place] [address] Care Team Providers Care Logistics Loss Prevention Manager Name Role Phone Leandro Seaman MD Unavailable [phone] Pcp, No Primary Care Provider Unavailabl e Encounter Details Date Type Department Care Team (Latest Contact Info) Description 10/07/2021 Travel Social History Tobacco Use Types Packs/Day [...] [facility] Medicine Specialties [address] [place] [address] 01/15/2024 11:[address] [facility] Medicine Specialties [address] [place] [address] Ida Nayak PA [address] [place] [address] 06/19/2024 11:00 AM EDT Appointment [facility] 800 [facility]. [id number] [place] [address] Leandro Seaman MD 800 [facility] [address] [place] [address] documented as of this encounter Visit Diagnoses Not on filedocumented in this encounter Additional Health Concerns Assessment Noted Time A fall risk assessment has been complete d for the patient 08/11/2021 2:05 PM EDT documented as of this encounter Care Teams Logistics Loss Prevention Manager Relationship Specialty Start Date End Date Pcp, No 800 [place] [address] PCP - General Family Medicine 07/30/21 04/06/22 Leandro Seaman MD [address] [address] Consulting Physician Radiation Oncology 07/30/21 documented as of this encounter
--- OUTSIDE RECORDS SUMMARY | 2024-01-11 09:13 | XMS_ITS | Encounter Summary ---
Author Organization [facility] Address [address] [place] [address] Care Team Providers Care Paper Machine Operator Name Role Phone Leandro Seaman MD Unavailable [phone] Pcp, No Primary Care Provider Unavailabl e Reason for Visit * Radiation Therapy (Routine) - Closed Specialty Diagnoses / Procedures Referred By Shannan t Referred To Contact Radiation Oncology Diagnoses 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) Procedures Rad Onc Intent to Treat Leandro Seaman MD [address] [address] Phone: tel: fax: [facility] 800 [facility]. [address] [address] Phone: tel: fax: Referral ID Status Reason Start Date Expiration Date V isits Requested Visits Authorized [id number] Closed Perform Procedure 08/11/2021 02/10/2023 3 3 Encounter Details Date Type Department Care Team (Latest Contact Info) Description 09/06/2021 11:37 AM EDT - 09/06/2021 11:59 PM EDT Hospital Encounter [facility] [address] [address] Leandro Seaman MD [address] [address] Discharge Disposition: Still a Patient Social [...] Procedure [facility] [address] [place] [address] 01/15/2024 11:00 AM EST Consult [facility] [address] [place] [address] Ida Nayak, PA [address] [facility] [address] [place] [address] 06/19/2024 11:00 AM EDT Appointment [facility] [address] [place] [address] Leandro Seaman MD [address] [place] [address] documented as of this encounter Visit Diagnoses Not on filedocumented in this encounter Additional Health Concerns Assessment Noted Time A fall risk assessment has been complete d for the patient 08/11/2021 2:05 PM EDT documented as of this encounter Care Teams Paper Machine Operator Relationship Specialty Start Date End Date Pcp, No [address] [place] [address] PCP - General Family Medicine 07/30/21 04/06/22 Leandro Seaman MD [address] [place] [address] Consulting Physician Radiation Oncology 07/30/21 documented as of this encounter
--- OUTSIDE RECORDS SUMMARY | 2024-01-11 09:13 | XMS_ITS | Encounter Summary ---
Author Organization Healthcare Address [address] [place] [address] Care Team Providers Care Control System Manager Name Role Phone Leandro Seaman MD Unavailable [phone] Pcp, No Primary Care Provider Unavailabl e Encounter Details Date Type Department Care Team (Latest Contact Info) Description 08/30/2021 Travel Social History Tobacco Use Types Packs/Day [...] Description 01/15/2024 10:00 AM EST Ancillary Procedure [facility] Medicine Specialties [address] [place] [address] 01/15/2024 11:00 AM EST Consult [facility] Medicine [facility]ties [address] [place] [address] Ida Nayak PA [address] [place] [address] 06/19/2024 11:00 AM EDT Appointment [facility] [address] [facility]. [address] [place] [address] Leandro Seaman MD 800 [facility] [address] [place] [address] documented as of this encounter Visit Diagnoses Not on filedocumented in this encounter Additional Health Concerns Assessment Noted Time A fall risk assessment has been complete d for the patient 08/11/2021 2:05 PM EDT documented as of this encounter Care Teams Control System Manager Relationship Specialty Start Date End Date Pcp, No [address] [place] [address] PCP - General Family Medicine 07/30/21 04/06/22 Leandro Seaman MD [address] [address] Consulting Physician Radiation Oncology 07/30/21 documented as of this encounter
--- OUTSIDE RECORDS SUMMARY | 2024-01-11 09:13 | XMS_ITS | Encounter Summary ---
Author Organization Healthcare Address [address] [place] [address] Care Team Providers Care Wire Harness Design Engineer Name Role Phone Leandro Seaman MD Unavailable [phone] Pcp, No Primary Care Provider Unavailabl e Encounter Details Date Type Department Care Team (Late st Contact Info) Description 09/06/2021 Orders Only [facility] [id number] [place] [address] Radiation Oncology, Physician, [address] [place], [place] [id number] Social History Tobacco Use Types Packs/Day Years [...] Description 01/15/2024 10:00 AM EST Ancillary Procedure [facility] [address] [place] [address] 01/15/2024 11:00 AM EST Consult [facility] [address] [place] [address] Ida Nayak PA [address] [place] [address] 06/19/2024 11:00 AM EDT Appointment [facility] [id number] [place] [address] Leandro Seaman MD [address] [place] [address] documented as of this encounter Procedures Procedure Name Priority Date/Time Associated Diagnosis Comments RAD ONC ARIA COURSE SUMMARY Routine 09/06/2021 6:47 PM EDT documented in this encounter Results * Rad Onc Aria Course Summary (09/06/2021 6:47 PM EDT) Course ID C2 ARIA RADIATION ONCOLOGY Course Intent Curative ARIA RADIATION ONCOLOGY Course Start Date 08/20/2021 8:33 AM ARIA RADIATION ONCOLOGY Course End Date 09/06/2021 6:46 PM [facility]A RADIATION ONCOLOGY Course First Treatment Date 09/01/2021 11:53 AM [facility]A RADIATION ONCOLOGY Course Last Treatment Date 09/06/2021 12:16 PM [facility]A RADIATION ONCOLOGY Course Elapsed Days 5 [facility]A RADIATION ONCOLOGY Reference Point ID LEROY SBRT ARIA RADIATION ONCOLOGY Reference Point Dosage Given to Date 54 Gy ARIA RADIATION ONCOLOGY Plan ID LEROY SBRT ARIA RADIATION ONCOLOGY Plan Name LEROY SBRT ARIA RADIATION ONCOLOGY Plan Fractions Treated to Date 3 ARIA RADIATION ONCOLOGY Plan Total Fractions Prescribed 3 ARIA RADIATION ONCOLOGY Plan Prescribed Dose Per Fraction 18 Gy ARIA RADIATION ONCOLOGY Plan Total Prescribed Dose 5,400 CGy ARIA RADIATION ONCOLOGY Plan Primary Reference Point LEROY SBRT ARIA RADIATION ONCOLOGY 09/06/2021 6:47 PM EDT us Physician Radiation Oncology RADIATION ONCOLO GY ORDERABLES Final Result [facility] documented in this encounter Visit Diagnoses Not on filedocumented in this encounter Additional Health Concerns Assessment Noted Time A fall risk assessment has been complete d for the patient 08/11/2021 2:05 PM EDT documented as of this encounter Care Teams Wire Harness Design Engineer Relationship Specialty Start Date End Date Pcp, No [address] [place] [address] PCP - General Family Medicine 07/30/21 04/06/22 Leandro Seaman MD 800 [facility] [address] [place] [address] Consulting Physician Radiation Oncology 07/30/21 documented as of this encounter
--- OUTSIDE RECORDS SUMMARY | 2024-01-11 09:13 | XMS_ITS | Encounter Summary ---
Author Organization Healthcare Address [address] [place] [address] Care Team Providers Care Laborer Tin Can Name Role Phone Leandro Seaman MD Unavailable Pcp, No Primary Care Provider Unavailabl e Encounter Details Date Type Department Care Team (Latest Contact Info) Description 08/16/2021 Travel Social History Tobacco Use Types Packs/Day [...] Description 01/15/2024 10:00 AM EST Ancillary Procedure [facility] Medicine Specialties [address] [place] [address] 01/15/2024 11:00 AM EST Consult [facility] Medicine Specialties [address] [place] [address] Ida Nayak PA [address] [place] [address] 06/19/2024 11:00 AM EDT Appointment [facility] 800 [facility] [address] [place] [address] Leandro Seaman MD 800 [facility] [address] [place] [address] documented as of this encounter Visit Diagnoses Not on filedocumented in this encounter Additional Health Concerns Assessment Noted Time A fall risk assessment has been complete d for the patient 08/11/2021 2:05 PM EDT documented as of this encounter Care Teams Laborer Tin Can Relationship Specialty Start Date End Date Pcp, No [address] [place] [address] PCP - General Family Medicine 07/30/21 04/06/22 Leandro Seaman MD [address] [address] Consulting Physician Radiation Oncology 07/30/21 documented as of this encounter
--- OUTSIDE RECORDS SUMMARY | 2024-01-11 09:13 | XMS_ITS | Encounter Summary ---
Author Organization Healthcare Address [address] [place] [address] Care Team Providers Care Carrier Blower Name Role Phone Leandro Seaman MD Unavailable [phone] Pcp, No Primary Care Provider Unavailabl e Encounter Details Date Type Department Care Team (Late st Contact Info) Description 09/06/2021 Orders Only [facility] [id number] [place] [address] Radiation Oncology, Physician, [address] [place], [place] [id number] Social History Tobacco Use Types Packs/Day Years [...] Procedure [facility] [address] [place] [address] 01/15/2024 11:00 AM EST Consult [facility] [address] [place] [address] Ida Nayak PA [address] [place] [address] 06/19/2024 11:00 AM EDT Appointment [facility] [id number] [place] [address] Leandro Seaman MD [address] [place] [address] documented as of this encounter Procedures Procedure Name Priority Date/Time Associated Diagnosis Comments RAD ONC ARIA SESSION SUMMARY Routine 09/06/2021 12:22 PM EDT documented in this encounter Results * Rad Onc Aria Session Summary (09/06/2021 12:22 PM EDT) Course ID C2 ARIA RADIATION [...] to Date 54 Gy ARIA RADIATION ONCOLOGY Reference Point Session [...] Point LEROY SBRT ARIA RADIATION ONCOLOGY 09/06/2021 12:2 2 PM EDT Physician Radiation Oncology MD RADIATION ONCOLO GY ORDERABLES Final Result [facility] documented in this encounter Visit Diagnoses Not on filedocumented in this encounter Additional Health Concerns Assessment Noted Time A fall risk assessment has been complete d for the patient 08/11/2021 2:05 PM EDT documented as of this encounter Care Teams Carrier Blower Relationship Specialty Start Date End Date Pcp, No [address] [place] [address] PCP - General Family Medicine 07/30/21 04/06/22 Leandro Seaman MD 800 [facility] [address] [place] [address] Consulting Physician Radiation Oncology 07/30/21 documented as of this encounter
--- OUTSIDE RECORDS SUMMARY | 2024-01-11 09:13 | XMS_ITS | Encounter Summary ---
Author Organization Healthcare Address [address] [place] [address] Care Team Providers Care Animal Laboratory Technician Name Role Phone Cruzito Seaman MD Unavailable [phone] Pcp, No Primary Care Provider Unavailabl e Reason for Referral * Radiation Therapy (Routine) - Closed Specialty Diagnoses / Procedures Referred By Shannan schmitt Referred To Contact Radiation Oncology Diagnoses 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) Procedures Rad Onc Intent to Treat Cruzito Seaman MD [address] [address] Phone: tel: fax: [facility] [address] [address] Phone: tel: fax: Referral ID Status Reason Start Date Expiration Date V isits Requested Visits Authorized [id number] Closed Perform Procedure 08/11/2021 02/10/2023 3 3 Reason for Visit * Reason Comments Follow-up Encounter Details Date Type Department Care Team (Latest Contact Info) Description 08/11/2021 1:57 PM EDT - 08/11/2021 11:59 PM EDT Hospital Encounter [facility] [address] [address] Cruzito Seaman MD [address] [phone] Malignant neoplasm of upper lobe of left [...] Reading Time Taken Comments Blood Pressure 120/72 08/11/2021 2:04 PM EDT Pulse 70 08/11/2021 2:04 PM EDT Temperature - - Respiratory Rate 16 08/11/2021 2:04 PM EDT Oxygen Saturation 95% 08/11/2021 2:04 PM EDT Inhaled Oxygen Concentration - - Weight 71.3 kg (157 lb 3 oz) 08/11/2021 2:04 PM EDT Height - - Body Mass Index 23.9 07/30/2020 11:04 AM EDT documented in this [...] 25 MG tablet 1 tablet (25 mg). /urs/Sat 05/19/2020 albuterol 108 (90 Base) MCG/ACT inhaler [...] Notes - Luis Carlos Fu MD - 08/11/2021 3:00 PM EDT [facility] RADIATION ONCOLOGY FOLLOW-UP NOTE PATIENT NAME: Carlo Noriega : 1945 DATE OF SERVICE: 08/11/2021 DIAGNOSIS AND Cancer Staging 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) Staging form: Lung, AJCC 8th Edition - Clinical stage from 08/11/2021: Stage IA2 (cT1b, cN0, cM0) - Unsigned Stage prefix: Initial diagnosis PRIOR RADIATION THERAPY: - 60 Gy along with a stereotactic boost to the residual disease of 19.5 Gy in 3 additional fractions, completed in 10/2016 [place]AR[place] PERFORMANCE STATUS: 90 HISTORY OF PRESENT ILLNESS: Carlo Noriega is a 76 y.o. male who we are seeing as a follow up today regarding stage IIIB (cT4,cN2,cM0) non small cell lung cancer. He saw us a few weeks ago and had progression of a left apical lung nodule. We ordered PET/CT which was done today. INTERVAL HISTORY: CT chest 07/30/21 - Increased size of the left apical nodule, suspicious for malignancy. Consider PET/CT or tissue sampling for further evaluation. This lesion appears FDG-avid on PET from today 08/11/21, although the final read from radiology has not returned. Otherwise, he's had no changes since his last appointment. REVIEW OF SYSTEMS: A 14 point review of systems was conducted with pertinent positives and negatives above in the HPI. MEDICATIONS: Reviewed ALLERGIES: Reviewed SOCIAL HISTORY: Changes noted in the HPI if applicable PHYSICAL EXAM: Vital Signs: Visit Vitals BP 120/72 Pulse 70 Resp 16 Wt 71.3 kg (157 lb 3 oz) SpO2 95% BMI 23.90 kg/m?? Smoking Status Never Smoker BSA 1.85 m?? Physical Exam Constitutional: General: He is not in acute distress. Appearance: Normal appearance. HENT: Head: Normocephalic and atraumatic. Right Ear: External ear normal. Left Ear: External ear normal. Nose: Nose normal. Mouth/Throat: Mouth: Mucous membranes are moist. Pharynx: Oropharynx is clear. Eyes: Extraocular Movements: Extraocular movements intact. Conjunctiva/sclera: Conjunctivae normal. Pupils: Pupils are equal, round, and reactive to light. Cardiovascular: Rate and Rhythm: Normal rate and regular rhythm. Pulmonary: Effort: Pulmonary effort is normal. No respiratory distress. Breath sounds: Normal breath sounds. Abdominal: General: There is no distension. Palpations: Abdomen is soft. Tenderness: There is no abdominal tenderness. Musculoskeletal: General: No swelling. Normal range of motion. Cervical back: Normal range of motion. No tenderness. Skin: General: Skin is warm. Findings: No erythema. Neurological: General: No focal deficit present. Mental Status: He is alert and oriented to person, place, and time. Psychiatric: Mood and Affect: Mood normal. Behavior: Behavior normal. Thought Content: Thought content normal. Judgment: Judgment normal. PATHOLOGY AND LABORATORY STUDIES: All pertinent lab and pathology results were reviewed. 06/13/2014 DIAGNOSIS LUNG, LEFT UPPER LOBE, TRANSBRONCHIAL BIOPSY: ? - INVASIVE POORLY DIFFERENTIATED NON-SMALL CELL CARCINOMA, MOST CONSISTENT WITH ?ADENOCARCINOMA (SEE COMMENT). IMAGING: The following radiologic studies were independently reviewed by the staff attending and myself. CT CHEST WO IV CONTRAST ordered by CRUZITO SEAMAN, [id number] ?? CLINICAL INDICATION: Non-small cell lung cancer, non-metastatic, assess treatment response ?? TECHNIQUE: Multiple CT helical images were obtained from thoracic inlet through upper abdomen without administration of IV contrast. ?? Total DLP (Dose-Length Product): 123.53 mGy.cm. Please note: The reported value represents the total of one or more individual components during the CT acquisition on this date and at this time, and as such, the same value may appear in more than one CT report depending on the interpreting/reporting physicians. ?? COMPARISON: 07/30/2020: CT chest with contrast ?? FINDINGS: Mediastinum and Pleura: No mediastinal or hilar adenopathy. Stable left pleural thickening. No pleural effusion. Stable trace pericardial effusion. Coronary artery stents. Atherosclerotic calcification along the aorta and its major branching vessels. Patulous upper thoracic esophagus with minimal layering debris. ?? Lungs: Moderate upper lobe predominant emphysema. Similar appearance of the left suprahilar radiation-induced fibrosis with associated left upper lobe bronchial stenosis. Increased size of the left apical nodule now measuring 12 mm (series 2, image 28), previously 8 mm, with slightly increased adjacent architectural distortion, better appreciated compared to 2020 CT. The additional smaller bilateral pulmonary nodules are similar prior. ?? Upper Abdomen: No acute or suspicious findings in the visualized upper abdomen. Prior cholecystectomy with small cystic gallbladder remnant (series 2, image 106). Stable 17 mm left adrenal nodule. Unchanged small duodenal lipoma (series 2, image 124). ?? Musculoskeletal: No suspicious lytic or sclerotic lesion. ?? IMPRESSION: Increased size of the left apical nodule, suspicious for malignancy. Consider PET/CT or tissue sampling for further evaluation. ?? PET/CT FDG SKULL BASE TO MID THIGH ordered by CRUZITO SEAMAN, [id number] ?? CLINICAL INDICATION: 75 year-oldmalewith history of stage IIIB(cT4,cN2,cM0)non small cell lung cancer diagnosed in 2016,status post radiation therapy completed 10/2016. CT chest on 07/30/2021 showed increase in size of a left apical nodule, presenting for further work up. ?? TECHNIQUE: Preparation: Last oral intake (except water) on 08/10/2021 at 1700. Diabetic: No. Blood glucose at time of FDG administration: 103 mg/dL. Radiopharmaceutical: 11.6 mCi of F-18 FDG administered intravenously at right antecubital fossa at 1112. Incubation interval: 61 minutes. Oral contrast: None. Positioning: Arms raised. PET/CT scanner: Siemens Biograph 40 mCT. PET/CT acquisition: [id number]. Standardized uptake value (SUV): Corrected for body weight only. CT: Low-dose, [id number], without intravenous contrast. TOTAL DLP (Dose Length Product): 469.98 mGy.cm mGy cm. ?? COMPARISON/CORRELATION: Compared to 06/25/2015. Correlated with Ct chest 07/30/2020 and 07/30/2021. ?? FINDINGS: Technical quality: Adequate. ?? Measurements: Unless otherwise specified, all SUVs refer to maximum value in the target (mSUV). Reference: mean SUV liver: 2.4; previously: 2.5. CT linear measurements performed on axial images. ?? Head and Neck: No suspicious metabolically active lesions within the head and neck. ?? No suspicious metabolically active or pathologically enlarged adenopathy. ?? Unremarkable thyroid gland. ?? Chest: The questionable spiculated 12 x 10 mm left apical nodule exhibits intense FDG uptake with maximum SUV 8.5 image 114. ?? Stable bilateral small subcentimeter pulmonary nodules, below PET resolution. ?? Mildly hypermetabolic left upper lobe postradiation fibrotic changes. Upper lobe predominant emphysematous changes, unchanged. Bibasilar atelectasis. Sequelae of prior granulomatous insult. ?? No suspicious metabolically active or pathologically enlarged hilar or mediastinal adenopathy. ?? Coronary stents. Small pericardial effusion. No pleural effusion or pneumothorax. ?? Abdomen and Pelvis: No suspicious metabolically active lesions within the abdomen and pelvis. ?? No suspicious metabolically active or pathologically enlarged retroperitoneal or pelvic adenopathy. ?? Small 14 mm left adrenal adenoma shows no significant FDG uptake above imaging the parenchymal uptake, stable compared to PET/CT from 2016. Unremarkable right adrenal gland. Medial upper lobe exophytic left renal cyst, mildly increased in size compared to PET/CT from 2016. Otherwise unremarkable kidneys. Unremarkable liver, gallbladder, spleen, and pancrease. Calcified atherosclerotic changes. No ascites. ?? Skeleton and Soft Tissues: No suspicious metabolically active osseous or soft tissue lesions. ?? No aggressive lytic or sclerotic lesions. ?? Multilevel degenerative changes. ?? IMPRESSION: 1.The questionable spiculated left apical nodule exhibits intense FDG uptake, highly suspicious formalignancy. Tissue sampling recommended. ?? 2.Stable bilateral small subcentimeter pulmonary nodules, below PET resolution. ?? 3.Mildly hypermetabolic left upper lobe postradiation fibrotic changes. ?? 4.No evidence of metabolically active regional or distant metastatic disease. ?? ASSESSMENT AND PLAN: Carlo Noriega is a [...] and to have definitive treatment with SBRT. We could likely treat this lesion with a single fraction to 3000 cGy or possibly 5400 cGy in 3 fractions. We've discussed the risks and benefits of radiation therapy, and he w as agreeable to proceeding with SBRT - CT simulation for radiation planning; wing marquez sanchez, 4DCT - SBRT to 3000 cGy in 1 fraction or possibly 5400 cGy in 3 fractions with daily IGRT with CBCT All of his questions were answered to his satisfaction. Mr. Noriega has been given a printout regarding future appointments and the plan of care. He has our contact information should he have questions or concerns. A total of 30 minutes were spent in follow up with more than 20 minutes of that time used for counseling the patient and coordination of care. Thank you for allowing us to take part in the care of Carlo Noriega. Please do not hesitate to contact our clinic if you have any questions or concerns. Electronically Signed by: Luis Carlos Fu MD - 08/11/2021 - 3:09 PM Cosigned by Cruzito Seaman MD at 08/12/2021 7:31 AM EDT Associated attestation - Cruzito Seaman MD - 08/12/2021 7:31 AM EDT I saw and evaluated the patient with the resident/fellow. I discussed the case with the resident/fellow and agree with the findings and plan as documented. documented in this encounter Plan of Treatment Upcoming Encounters Date Type Department Care Team (Late st Contact Info) Description 01/15/2024 10:00 AM EST Ancillary Procedure [facility] Medicine [facility] [address] [place] [address] 01/15/2024 11:00 AM EST Consult [facility] Medicine [facility] [address] [place] [address] Ida Nayak PA [address] [place] [address] 06/19/2024 11:00 AM EDT Appointment [facility] [id number] [place] [address] Cruzito Seaman MD [address] [place] [address] Scheduled Orders Name Type Priority Associated Diagnoses Orde r Schedule Rad Onc Intent to Treat Radiation Oncology Routine 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) Expected: 08/18/2021, Expires: 02/11/2023 documented as of this encounter Visit Diagnoses Diagnosis 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)- Primary documented in this encounter Additional Health Concerns Assessment Noted Time A fall risk assessment has been complete d for the patient 08/11/2021 2:05 PM EDT documented as of this encounter Care Teams Animal Laboratory Technician Relationship Specialty Start Date End Date Pcp, No 800 [place] [address] PCP - General Family Medicine 07/30/21 04/06/22 Cruzito Seaman MD [address] [address] Consulting Physician Radiation Oncology 07/30/21 documented as of this encounter
--- OUTSIDE RECORDS SUMMARY | 2024-01-11 09:13 | XMS_ITS | Encounter Summary ---
Author Organization Healthcare Address [address] [place] [address] Care Team Providers Care Recreation Clerk Name Role Phone Cruzito Seaman MD Unavailable [phone] Pcp, No Primary Care Provider Unavailabl e Reason for Referral * Imaging (Routine) - Closed Specialty Diagnoses / Procedures Referred By Shannan schmitt Referred To Contact Radiology Diagnoses 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) Procedures CT Chest w IV Contrast Cruzito Seaman MD [address] [address] Phone: tel: fax: Referral ID Status Reason Start Date Expiration Date Visits Re quested Visits Authorized [id number] Closed 10/07/2021 04/08/2023 1 1 Reason for Visit * Reason Comments Follow-up Encounter Details Date Type Department Care Team (Latest Contact Info) Description 10/07/2021 9:32 AM EDT - 10/07/2021 11:59 PM EDT Hospital Encounter [facility] [id number] [place] [address] Cruzito Seaman MD [address] [address] 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) (Primary Dx) Discharge Disposition: Still a Patient Social History Tobacco Use Types Packs/Day Years Used Date Smoking Tobacco: Never Smokeless Tobacco: Never Tobacco Cessation:Counseling Given: Not [...] PM EDT documented as of this encounter Last Filed Vital Signs Vital Sign Reading Time Taken Comments Blood Pressure 127/67 10/07/2021 9:39 AM EDT Pulse 69 10/07/2021 9:39 AM EDT Temperature - - Respiratory Rate 14 10/07/2021 9:39 AM EDT Oxygen Saturation 97% 10/07/2021 9:39 AM EDT Inhaled Oxygen Concentration - - Weight 71.6 kg (157 lb 13.6 oz) 10/07/2021 9:39 AM EDT Height - - Body Mass Index 24 07/30/2020 11:04 AM EDT documented in this [...] Notes - Luis Carlos Fu MD - 10/07/2021 10:00 AM EDT [facility] RADIATION MEDICINE RADIATION ONCOLOGY FOLLOW-UP NOTE PATIENT NAME: Carlo Noriega : 1945 DATE OF SERVICE: 10/07/2021 DIAGNOSIS AND Cancer Staging Malignant neoplasm of [...] in 3 fractions completed on 09/06/21. He is here for 1 month follow up INTERVAL HISTORY: He's doing well. He is a bit more dyspneic after his treatment. He denies any other concerning symptoms. REVIEW OF SYSTEMS: A 14 point review of systems was conducted with pertinent positives and negatives above in the HPI. MEDICATIONS: Reviewed ALLERGIES: Reviewed SOCIAL HISTORY: Changes noted in the HPI if applicable PHYSICAL EXAM: Vital Signs: Visit Vitals BP 127/67 Pulse 69 Resp 14 Wt 71.6 kg (157 lb 13.6 oz) SpO2 97% BMI 24.00 kg/m?? Smoking Status Never BSA 1.85 m?? Physical Exam Constitutional: General: [...] MOST CONSISTENT WITH ADENOCARCINOMA (SEE COMMENT). IMAGING: The following radiologic studies were independently reviewed by the staff attending and myself. No new imaging ASSESSMENT AND PLAN: Carlo Noriega is a [...] in 3 fractions completed on 09/06/21. He is here for 1 month follow up, and doing okay with a bit of worse neil dyspnea. - RTC [address] chest [...] PM Cosigned by Cruzito Seaman MD at 10/07/2021 10:23 AM EDT Associated attestation - Cruzito Seaman MD - 10/07/2021 10:23 AM EDT I saw and evaluated the patient with the resident/fellow. I discussed the case with the resident/fellow and agree with the findings and plan as documented. documented in this encounter Plan of Treatment Upcoming Encounters Date Type Department Care Team (Late st Contact Info) Description 01/15/2024 10:00 AM EST Ancillary Procedure [facility] Medicine Specialties [address] [place] [address] 01/15/2024 11:[address] [facility] Medicine Specialties [address] [place] [address] Ida Nayak PA [address] [place] [address] 06/19/2024 11:00 AM EDT Appointment [facility] [id number] [place] [address] Cruzito Seaman MD [address] [place] [phone] documented as of this encounter Results * CT Chest w IV Contrast (01/06/2022 10:02 AM EST) Anatomical Region Laterality Modality Chest Computed Tomogra phy Impressions 01/06/2022 10:25 AM EST No signal interval change in size of spiculated left upper lobe nodule. No new suspicious nodules or enlarged adenopathy. Marginal interval increase in size of left adrenal nodule. Stable smaller right adrenal nodule. CRITICAL RESULT: ?? No. COMMUNICATION: Per this written report. Dictated by Lupe Zelaya MD on 01/06/2022 10:07 AM Signed by Lupe Zelaya MD on 01/06/2022 10:25 AM Narrative 01/06/2022 10:25 AM EST Exam/Procedure: CT CHEST W IV CONTRAST ordered by CRUZITO SEAMAN, [id number] CLINICAL INDICATION: Non-small cell lung cancer, monitor TECHNIQUE: Imaging of the chest was performed, from thoracic inlet through upper abdomen, using spiral technique, following administration of IV contrast, Omnipaque 300, 100 mL according to the [address] Chest protocol. Total DLP (Dose-Length Product): 239.62 mGy.cm. Please note: The reported value represents the total of one or more individual components during the CT acquisition on this date and at this time, and as such, the same value may appear in more than one CT report depending on the interpreting/reporting physicians. COMPARISON: PET/CT from 08/11/[address] from 07/30/2021 FINDINGS: Chest: Aorta/Vessels: The thoracic aorta and coronary arteries are atherosclerotic. Coronary stents. No large central filling defect within the pulmonary arteries to suggest pulmonary embolism. Pleural/Pericardial Space: No pneumothorax. No pleural effusions. No pericardial effusion. Lymph Nodes: No lymphadenopathy within the chest. Lungs: No significant interval change in size or appearance of left upper lobe spiculated nodule measuring 1.0 x 1.3 cm, previously 1.0 x 1.2 cm. Small right upper lobe nodular opacity is stable. Stable left upper lobe perihilar postsurgical change/fibrosis. Few tiny left lung nodules are also stable. No new suspicious nodules. Mediastinum: Otherwise unremarkable. Chest Wall: No chest wall hematoma or contusion. Bones: No acute fracture within the chest. Upper Abdomen: Marginal increase in left sagittal nodule, measuring 1.6 x 1.9 cm, previously 1.4 x 1.7 cm. Smaller right adrenal nodule is stable. Procedure Note Lupe Zelaya MD - 01/06/2022 Exam/Procedure: CT CHEST W IV CONTRAST ordered by CRUZITO SEAMAN,[id number] CLINICAL INDICATION: Non-small cell lung cancer, monitor TECHNIQUE: Imaging of the chest was performed, from thoracic inlet through upperabdomen, using spiral technique, following administration of IV contrast,Omnipaque 300, 100 mL [address] Chest protocol. Total DLP (Dose-Length Product): 239.62 mGy.cm. Please note: The reportedvalue represents the total of one or more individual components during theCT acquisition on this date and at this time, and as such, the same valuemay appear in more than one CT report depending on theinterpreting/reporting physicians. COMPARISON: PET/CT from 08/11/[address] from 07/30/2021 FINDINGS: Chest: Aorta/Vessels: The thoracic aorta and coronary arteries areatherosclerotic. Coronary stents. No large central filling defect withinthe pulmonary arteries to suggest pulmonary embolism. Pleural/Pericardial Space: No pneumothorax. No pleural effusions. Nopericardial effusion. Lymph Nodes: No lymphadenopathy within the chest. Lungs: No significant interval change in size or appearance of left upperlobe spiculated nodule measuring 1.0 x 1.3 cm, previously 1.0 x 1.2 cm.Small right upper lobe nodular opacity is stable. Stable left upper lobeperihilar postsurgical change/fibrosis. Few tiny left lung nodules arealso stable. No new suspicious nodules. Mediastinum: Otherwise unremarkable. Chest Wall: No chest wall hematoma or contusion. Bones: No acute fracture within the chest. Upper Abdomen: Marginal increase in left sagittal nodule, measuring 1.6 x1.9 cm, previously 1.4 x 1.7 cm. Smaller right adrenal nodule is stable. IMPRESSION: No signal interval change in size of spiculated left upper lobe nodule. Nonew suspicious nodules or enlarged adenopathy. Marginal interval increase in size of left adrenal nodule. Stable smallerright adrenal nodule. CRITICAL RESULT: No. COMMUNICATION: Per this written report. Dictated by Lupe Zelaya MD on 01/06/2022 10:07 AM Signed by Lupe Zelaya MD on 01/06/2022 10:25 AM us Cruzito Seaman MD IMG CT [...] documented as of this encounter Care Teams Recreation Clerk Relationship Specialty Start Date End Date Pcp, No [address] [place] [address] PCP - General Family Medicine 07/30/21 04/06/22 Cruzito Seaman MD 800 [facility] [address] [place] [address] Consulting Physician Radiation Oncology 07/30/21 documented as of this encounter
--- OUTSIDE RECORDS SUMMARY | 2024-01-11 09:13 | XMS_ITS | Encounter Summary ---
Author Organization [facility] Address [address] [place] [address] Care Team Providers Care Community Support Worker Name Role Phone Leandro Seaman MD Unavailable [phone] Pcp, No Primary Care Provider Unavailabl e Reason for Visit * Radiation Therapy (Routine) - Closed Specialty Diagnoses / Procedures Referred By Shannan t Referred To Contact Radiation Oncology Diagnoses 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) Procedures Rad Onc Intent to Treat Leandro Seaman MD [address] [address] Phone: tel: fax: [facility] 800 [facility]. [address] [address] Phone: tel: fax: Referral ID Status Reason Start Date Expiration Date V isits Requested Visits Authorized [id number] Closed Perform Procedure 08/11/2021 02/10/2023 3 3 Encounter Details Date Type Department Care Team (Latest Contact Info) Description 09/03/2021 11:28 AM EDT - 09/03/2021 11:59 PM EDT Hospital Encounter [facility] [address] [address] Leandro Seaman MD [address] [address] Discharge Disposition: Still a Patient [...] Description 01/15/2024 10:00 AM EST Ancillary Procedure [facility] Medicine Specialties [address] [place] [address] 01/15/2024 11:00 AM EST Consult [facility] Medicine Specialties [address] [place] [address] Ida Nayak, PA [address] [facility] [address] [place] [address] 06/19/2024 11:00 AM EDT Appointment [facility] [id number] [place] [address] Leandro Seaman MD [address] [place] [phone] documented as of this encounter Visit Diagnoses Not on filedocumented in this encounter Additional Health Concerns Assessment Noted Time A fall risk assessment has been complete d for the patient 08/11/2021 2:05 PM EDT documented as of this encounter Care Teams Community Support Worker Relationship Specialty Start Date End Date Pcp, No [address] [place] [address] PCP - General Family Medicine 07/30/21 04/06/22 Leandro Seaman MD [address] [place] [address] Consulting Physician Radiation Oncology 07/30/21 documented as of this encounter
--- OUTSIDE RECORDS SUMMARY | 2024-01-11 09:13 | XMS_ITS | Encounter Summary ---
Author Organization [facility] Address [address] [place] [address] Care Team Providers Care Restaurant Associate Name Role Phone Cruzito Seaman MD Unavailable [phone] Pcp, No Primary Care Provider Unavailabl e Reason for Referral * Imaging (Routine) - Closed Specialty Diagnoses / Procedures Referred By Shannan schmitt Referred To Contact Radiology Diagnoses 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) Procedures CT Chest w IV Contrast Cruzito Seaman MD [address] [address] Phone: tel: fax: Referral ID Status Reason Start Date Expiration Date Visits Re quested Visits Authorized [id number] Closed 10/07/2021 04/08/2023 1 1 Reason for Visit * Imaging (Routine) - Closed Specialty Diagnoses / Procedures Referred By Shannan schmitt Referred To Contact Radiology Diagnoses 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) Procedures CT Chest w IV Contrast Cruzito Seaman MD [address] [address] Phone: tel: fax: Referral ID Status Reason Start Date Expiration Date Visits Re quested Visits Authorized [id number] Closed 10/07/2021 04/08/2023 1 1 Encounter Details Date Type Department Care Team (Latest Contact Info) Description 01/06/2022 8:47 AM EST - 01/06/2022 10:44 AM EST Hospital Encounter [facility] [address] [place] [address] Malignant neoplasm of upper lobe of left [...] AM EST documented as of this encounter Discharge Instructions * Attachments The following attachments cannot be sent through Care Everywhere. * Contrast Imaging Discharge Instructions ([place]) (Syriac) documented in this encounter Medications at Time [...] 2 puff(s) inhaled 4 times a day bisoprolol (Zebeta) 5 MG tablet TAKE 1 [...] Description 01/15/2024 10:00 AM EST Ancillary Procedure [facility] Medicine Specialties [address] [place] [address] 01/15/2024 11:00 AM EST Consult [facility] Medicine Specialties [address] [place] [address] Ida Nayak PA [address] [place] [address] 06/19/2024 11:00 AM EDT Appointment [facility] [id number] [place] [address] Cruzito Seaman MD [address] [place] [address] documented as of this encounter Procedures Procedure Name Priority Date/Time Associated Diagnosis Comments CT CHEST W IV CONTRAST Routine 01/06/2022 10:02 AM EST 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) POCT CREATININE ISTAT UNSOLICITED RESULTS Routine 01/06/2022 9:15 AM EST documented in this encounter Results [...] W IV CONTRAST ordered by CRUZITO SEAMAN, [id number] CLINICAL INDICATION: Non-small cell lung cancer, monitor [...] CHEST W IV CONTRAST ordered by CRUZITO SEAMAN,[id number] CLINICAL INDICATION: Non-small cell lung cancer, monitor [...] Final Resu lt * (ABNORMAL) POCT creatinine (01/06/2022 9:15 AM EST) Creatinine, Point of Care 1.6(H) 0.8 - 1.3 mg/dL 01/06/2022 9:20 AM EST [facility] POCT eGFR 45 mL/min/1. 73m*2 01/06/2022 9:20 AM EST [facility] Cyber Policy And Strategy Planner ID Kati Cancino 01/06/2022 9:20 AM EST [facility] Device ID [id number] 01/06/2022 9:20 AM EST [facility] Comment 01/06/2022 9:20 AM EST [facility] Comment: Testing performed on i-STAT at the point of care. Testing performed on i-STAT at the point of care. Reported eGFRcr in mL/min/1.73m2 is based the CKD-EPI 2021 equation that does not use a race coefficient. Effective 09/01/21 our laboratory changed the eGFR calculation to the CKD-EPI 2021 equation from the previously reported eGFR, based on the MDRD equation. For comparisons between the two equations, please see laboratory website: [email or web address] Venous blood specimen / Unknown 01/06/2022 9:15 AM EST 01/06/2022 9:20 AM EST us Generic Provider Poct LAB POINT OF CARE TEST DOCKED DEVICE UNSOLICITED RESULTS Final Result [facility] [address] [place] [id number] documented in this encounter Visit Diagnoses Diagnosis 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) documented in this encounter Administered Medications Inactive Administered Medications - up to 3 most recent administrations Medication Order MAR Action Action Date Dose Rate Site iohexol (OMNIPaque) 350 MG/ML injection 100 mL 100 mL, Intravenous, Once in imaging, 1 dose, Starting on Yu 01/06/22 at 0850, Until Yu 01/06/22 at 1001, Routine, Imaging Protocol Orders Given 01/06/2022 10:01 AM EST 90 mL documented in this encounter Additional Health Concerns Assessment Noted Time A fall risk assessment has been complete d for the patient 01/06/2022 10:52 AM EST documented as of this encounter Care Teams Restaurant Associate Relationship Specialty Start Date End Date Pcp, No [address] [place] [address] PCP - General Family Medicine 07/30/21 04/06/22 Cruzito Seaman MD [address] [place] [address] Consulting Physician Radiation Oncology 07/30/21 documented as of this encounter
--- OUTSIDE RECORDS SUMMARY | 2024-01-11 09:14 | XMS_ITS | Encounter Summary ---
Author Organization Healthcare Address [address] [place] [address] Care Team Providers Care Surgical Nurse Name Role Phone Cruzito Seaman MD Unavailable [phone] Pcp, No Primary Care Provider Unavailabl e Reason for Visit * Imaging (Routine) - Closed Specialty Diagnoses / Procedures Referred By Shannan schmitt Referred To Contact Radiology Diagnoses 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) Procedures PET/CT FDG Skull Base To Mid Thigh Cruzito Seaman MD [address] [facility] [place] [address] [place] [address] Phone: tel: fax: Referral ID Status Reason Start Date Expiration Date Visits Re quested Visits Authorized [id number] Closed 07/30/2021 01/29/2023 2 2 Encounter Details Date Type Department Care Team (Latest Contact Info) Description 08/11/2021 10:29 AM EDT - 08/11/2021 1:56 PM EDT Hospital Encounter [facility] Rad[facility] [address] [place] [address] Discharge Disposition: Home or Self Care Social [...] Description 01/15/2024 10:00 AM EST Ancillary Procedure [facility] Medicine Specialties [address] [place] [address] 01/15/2024 11:00 AM EST Consult [facility] Medicine Specialties [address], [address] [place] [address] Ida Nayak PA [address] [place] [address] 06/19/2024 11:00 AM EDT Appointment [facility] Radiation [id number] [place] [address] Cruzito Seaman MD [address] [place] [address] documented as of this encounter Procedures Procedure Name Priority Date/Time Associated Diagnosis Comments PET/CT FDG SKULL BASE TO MID THIGH Routine 08/11/2021 12:36 PM EDT 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) documented in this encounter Results * PET/CT FDG Skull Base To Mid Thigh (08/11/2021 12:36 PM EDT) Anatomical Region Laterality Modality Nuclear Medicine Impressions 08/11/2021 2:03 PM EDT 1.The questionable spiculated left apical nodule exhibits intense FDG uptake, highly suspicious for malignancy. Tissue sampling recommended. 2.Stable bilateral small subcentimeter pulmonary nodules, below PET resolution. 3.Mildly hypermetabolic left upper lobe postradiation fibrotic changes. 4.No evidence of metabolically active regional or distant metastatic disease. CRITICAL RESULT: No. COMMUNICATION: Per this written report. Dictated by Magaly Cotton on 08/11/2021 1:09 PM Signed by Magaly Cotton on 08/11/2021 2:03 PM Narrative 08/11/2021 2:03 PM EDT Exam/Procedure: PET/CT FDG SKULL BASE TO MID THIGH ordered by CRUZITO SEAMAN, [id number] CLINICAL INDICATION: 75 year-oldmalewith history of stage IIIB(cT4,cN2,cM0)non small cell lung cancer diagnosed in 2015, status post radiation therapy completed 10/2016. CT chest on 07/30/2021 showed increase in size of a left apical nodule, presenting for further work up. TECHNIQUE: Preparation: Last oral intake (except water) on 08/10/2021 at 1700. Diabetic: No. ?? Blood glucose at time of FDG administration: 103 mg/dL. Radiopharmaceutical: 11.6 mCi of F-18 FDG administered intravenously at right antecubital fossa at 1112. Incubation interval: 61 minutes. Oral contrast: None. Positioning: Arms raised. PET/CT scanner: Siemens Biograph 40 mCT. PET/CT acquisition: Shunqr-ei-pex-thighs. Standardized uptake value (SUV): Corrected for body weight only. CT: Low-dose, wbs-yojrcb-iyxm, without intravenous contrast. TOTAL DLP (Dose Length Product): 469.98 mGy.cm mGy cm. COMPARISON/CORRELATION: Compared to 06/25/2015. Correlated with Ct chest 07/30/2020 and 07/30/2021. FINDINGS: Technical quality: Adequate. Measurements: Unless otherwise specified, all SUVs refer to maximum value in the target (mSUV). Reference: mean SUV liver: 2.4; previously: 2.5. CT linear measurements performed on axial images. Head and Neck: No suspicious metabolically active lesions within the head and neck. No suspicious metabolically active or pathologically enlarged adenopathy. Unremarkable thyroid gland. Chest: The questionable spiculated 12 x 10 mm left apical nodule exhibits intense FDG uptake with maximum SUV 8.5 image 114. Stable bilateral small subcentimeter pulmonary nodules, below PET resolution. Mildly hypermetabolic left upper lobe postradiation fibrotic changes. Upper lobe predominant emphysematous changes, unchanged. Bibasilar atelectasis. Sequelae of prior granulomatous insult. No suspicious metabolically active or pathologically enlarged hilar or mediastinal adenopathy. Coronary stents. Small pericardial effusion. No pleural effusion or pneumothorax. Abdomen and Pelvis: No suspicious metabolically active lesions within the abdomen and pelvis. No suspicious metabolically active or pathologically enlarged retroperitoneal or pelvic adenopathy. Small 14 mm left adrenal adenoma shows no significant FDG uptake above imaging the parenchymal uptake, stable compared to PET/CT from 2016. Unremarkable right adrenal gland. Medial upper lobe exophytic left renal cyst, mildly increased in size compared to PET/CT from 2016. Otherwise unremarkable kidneys. Unremarkable liver, gallbladder, spleen, and pancrease. Calcified atherosclerotic changes. No ascites. Skeleton and Soft Tissues: No suspicious metabolically active osseous or soft tissue lesions. No aggressive lytic or sclerotic lesions. Multilevel degenerative changes. Procedure Note Magaly Garcia MD - 08/11/2021 Exam/Procedure: PET/CT FDG SKULL BASE TO MID THIGH ordered by CRUZITO HERNÁNDEZ, [id number] CLINICAL INDICATION: 75 year-oldmalewith history of stage IIIB(cT4,cN2,cM0)non small cell lungcancer diagnosed in 2015, status post radiation therapy completed 10/2016.CT chest on 07/30/2021 showed increase in size of a left apical nodule,presenting for further work up. TECHNIQUE: Preparation: Last oral intake (except water) on 08/10/2021 at 1700. Diabetic: No. Blood glucose at time of FDG administration: 103 mg/dL. Radiopharmaceutical: 11.6 mCi of F-18 FDG administered intravenously atright antecubital fossa at 1112. Incubation interval: 61 minutes. Oral contrast: None. Positioning: Arms raised. PET/CT scanner: Siemens Biograph 40 mCT. PET/CT acquisition: Gdoxnh-rb-lik-thighs. Standardized uptake value (SUV): Corrected for body weight only. CT: Low-dose, fed-lpufpt-bzzo, without intravenous contrast. TOTAL DLP (Dose Length Product): 469.98 mGy.cm mGy cm. COMPARISON/CORRELATION: Compared to 06/25/2015. Correlated with Ct chest 07/30/2020 and 07/30/2021. FINDINGS: Technical quality: Adequate. Measurements: Unless otherwise specified, all SUVs refer to maximum valuein the target (mSUV). Reference: mean SUV liver: 2.4; previously: 2.5. CT linear measurements performed on axial images. Head and Neck: No suspicious metabolically active lesions within the head and neck. No suspicious metabolically active or pathologically enlargedadenopathy. Unremarkable thyroid gland. Chest: The questionable spiculated 12 x 10 mm left apical nodule exhibits intenseFDG uptake with maximum SUV 8.5 image 114. Stable bilateral small subcentimeter pulmonary nodules, below PETresolution. Mildly hypermetabolic left upper lobe postradiation fibrotic changes. Upper lobe predominant emphysematous changes, unchanged. Bibasilar atelectasis. Sequelae of prior granulomatous insult. No suspicious metabolically active or pathologically enlarged hilar ormediastinal adenopathy. Coronary stents. Small pericardial effusion. No pleural effusion or pneumothorax. Abdomen and Pelvis: No suspicious metabolically active lesions within the abdomen andpelvis. No suspicious metabolically active or pathologically enlargedretroperitoneal or pelvic adenopathy. Small 14 mm left adrenal adenoma shows no significant FDG uptake aboveimaging the parenchymal uptake, stable compared to PET/CT from 2016. Unremarkable right adrenal gland. Medial upper lobe exophytic left renal cyst, mildly increased in sizecompared to PET/CT from 2016. Otherwise unremarkable kidneys. Unremarkable liver, gallbladder, spleen, and pancrease. Calcified atherosclerotic changes. No ascites. Skeleton and Soft Tissues: No suspicious metabolically active osseous or soft tissue lesions. No aggressive lytic or sclerotic lesions. Multilevel degenerative changes. IMPRESSION: 1.The questionable spiculated left apical nodule exhibits intense FDGuptake, highly suspicious for malignancy. Tissue sampling recommended. 2.Stable bilateral small subcentimeter pulmonary nodules, below PETresolution. 3.Mildly hypermetabolic left upper lobe postradiation fibrotic changes. 4.No evidence of metabolically active regional or distant metastaticdisease. CRITICAL RESULT: No. COMMUNICATION: Per this written report. Dictated by Magaly Cotton on 08/11/2021 1:09 PM Signed by Magaly Cotton on 08/11/2021 2:03 PM us Cruzito Seaman MD IMG NM PROCEDURES Final Resu lt documented in this encounter Visit Diagnoses Not on filedocumented in this encounter Additional Health Concerns Assessment Noted Time A fall risk assessment has been complete d for the patient 08/11/2021 2:05 PM EDT documented as of this encounter Care Teams Surgical Nurse Relationship Specialty Start Date End Date Pcp, No [address] [place] [address] PCP - General Family Medicine 07/30/21 04/06/22 Cruzito Seaman MD [id number] [place] [phone] Consulting Physician Radiation Oncology 07/30/21 documented as of this encounter
--- OUTSIDE RECORDS SUMMARY | 2024-01-11 09:14 | XMS_ITS | Encounter Summary ---
Author Organization Healthcare Address [address] [place] [address] Care Team Providers Care Performance Reporter Name Role Phone Cruzito Seaman MD Unavailable [phone] Pcp, No Primary Care Provider Unavailabl e Reason for Visit * Reason Comments Follow-up Encounter Details Date Type Department Care Team (Latest Contact Info) Description 07/30/2021 9:49 AM EDT - 07/30/2021 11:59 PM EDT Hospital Encounter [facility] [id number] [place] [address] Cruzito Seaman MD [address] [place] [address] Malignant neoplasm of upper lobe [...] suspected to have Coronavirus/COVID-19? No / Unsure 07/30/2021 9:21 AM EDT documented as of this encounter Last Filed Vital Signs Vital Sign Reading Time Taken Comments Blood Pressure 108/67 07/30/2021 9:56 AM EDT Pulse 77 07/30/2021 9:56 AM EDT Temperature - - Respiratory Rate 16 07/30/2021 9:56 AM EDT Oxygen Saturation 100% 07/30/2021 9:56 AM EDT Inhaled Oxygen Concentration - - Weight 71.8 kg (158 lb 4.6 oz) 07/30/2021 9:56 A M EDT Height - - Body Mass Index 24.07 07/30/2020 11:04 AM EDT documented in this [...] Progress Notes - Brock Munguia MD - 07/30/2021 11:30 AM EDT PSYCHIATRIC RADIATION MEDICINE RADIATION ONCOLOGY FOLLOW-UP NOTE PATIENT NAME: Carlo Noriega : 1945 DATE OF SERVICE: 07/30/2021 DIAGNOSIS AND Cancer Staging No matching staging information was found for the patient. PRIOR RADIATION THERAPY: - 60 Gy along with a stereotactic boost to the residual disease of 19 5 Gy in 3 additional fractions, completed in 10/2016 KARNOFSKY PERFORMANCE STATUS: 90 HISTORY OF PRESENT ILLNESS: Carlo Noriega is a 75 y.o. male who we are seeing as a follow up today regarding stage IIIB (cT4,cN2,cM0) non small cell lung cancer. INTERVAL HISTORY: Mr. Noriega presents to clinic today with his . He states he is doing well and has no acute concerns at this time. He had coronary stents placed earlier this year, performed without complication, and he has mild, chronic sciatic nerve pain that is currently well-controlled. Otherwise, Mr. Noriega denies any other symptoms. REVIEW OF SYSTEMS: A 14 point review of systems was conducted with pertinent positives and negatives above in the HPI. MEDICATIONS: Reviewed ALLERGIES: Reviewed SOCIAL HISTORY: Changes noted in the HPI if applicable PHYSICAL EXAM: Vital Signs: Visit Vitals BP 108/67 Pulse 77 Resp 16 Wt 71.8 kg (158 lb 4.6 oz) SpO2 100% BMI 24.07 kg/m?? Smoking Status Never Smoker BSA 1.86 m?? Physical Exam Constitutional: General: He is [...] the staff attending and myself. CT CHEST W/O CONTRAST (07/30/2021) - Final read from Radiology is pending and will be communicated to patient. Our preliminary review suggests a stable-appearing LEROY nodule. CT Chest w IV Contrast 07/30/2020 Narrative Exam/Procedure: CT CHEST W IV CONTRAST ordered by CRUZITO SEAMAN, [id number] CLINICAL INDICATION: 3B lung cancer TECHNIQUE: Multiple CT helical images were obtained from thoracic inlet through upper abdomen with administration of IV contrast. 80 mL of Omnipaque-300 were administered intravenously. Total DLP (Dose-Length Product): 114.15 mGy.cm. Please note: The reported value represents the total of one or more individual components during the CT acquisition on this date and at this time, and as such, the same value may appear in more than one CT report depending on the interpreting/reporting physicians. COMPARISON: 2019 FINDINGS: Mediastinum and Pleura: Residual soft tissue in the left hilum and extending along the bronchovascular bundle and medial left-sided pleural appears similar to comparison. Small volume of left-sided pleural fluid and pleural thickening are similar to comparison. Lungs: Several small lung nodules are stable from comparison. Emphysema with several tiny groundglass nodules again noted. Upper Abdomen: No suspicious lesions in the partially visualized upper abdomen. Musculoskeletal: No suspicious lytic or sclerotic lesion. Impression No evidence of thoracic progression. CRITICAL RESULT: No. COMMUNICATION: Per this written report. Signed by Lakhwinder Montero on 07/30/2020 11:04 AM ASSESSMENT AND PLAN: Carlo Noriega is a 75 y.o. male with a history of stage IIIB (cT4,cN2,cM0) non small cell lung cancer s/p radiation therapy as detailed above, who presents for 1-year follow-up. Mr. Noriega appears clinically stable, and exam shows no acute, concerning findings. Imaging suggests a stable-appearing LEROY nodule, but final read from Radiology will be reviewed once completed. Mr. Noriega will follow up in clinic with Dr. Seaman in 1 year, on 07/29/2021 at 11:30AM, following same-day CT Chest. All of his questions were answered to [...] if you have any questions or concerns. Brock Munguia II, MD, PGY-2 Resident Physician, Radiation Oncology [facility] Pager: [phone] Cosigned by Cruzito Seaman MD at 07/30/2021 10:38 AM EDT Associated attestation - Cruzito Seaman MD - 07/30/2021 10:38 AM EDT I saw and evaluated the patient with the resident/fellow. I discussed the case with the resident/fellow and agree with the findings and plan as documented. documented in this encounter Plan of Treatment Upcoming Encounters Date Type Department Care Team (Late st Contact Info) Description 01/15/2024 10:00 AM EST Ancillary Procedure [facility] Medicine Specialties [address], [address] [place] [address] 01/15/2024 11:00 AM EST Consult [facility] Medicine Specialties [address], [address] [place] [address] Ida Nayak PA [address] [place] [address] 06/19/2024 11:00 AM EDT Appointment [facility] Radiation [id number] [place] [address] Cruzito Seaman MD [address] [facility] [address] [place] [address] documented as of this encounter Visit Diagnoses Diagnosis 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)- Primary documented in this encounter Additional Health Concerns Assessment Noted Time A fall risk assessment has been complete d for the patient 07/30/2021 10:04 AM EDT documented as of this encounter Care Teams Performance Reporter Relationship Specialty Start Date End Date Pcp, No [address] [place] [address] PCP - General Family Medicine 07/30/21 04/06/22 Cruzito Seaman MD [address] [place] [address] Consulting Physician Radiation Oncology 07/30/21 documented as of this encounter
--- OUTSIDE RECORDS SUMMARY | 2024-01-11 09:14 | XMS_ITS | Encounter Summary ---
Author Organization Healthcare Address [address] [place] [address] Care Team Providers Care Acid Maker Name Role Phone Leandro Seaman MD Unavailable [phone] Pcp, No Primary Care Provider Unavailabl e Encounter Details Date Type Department Care Team (Late st Contact Info) Description 07/30/2021 Telephone [facility]iation [id number] [place] [address] Leandro Seaman MD [address] [place] [address] Social History Tobacco Use Types [...] Description 01/15/2024 10:00 AM EST Ancillary Procedure [facility] Medicine Specialties [address] [place] [phone] 01/15/2024 11:00 AM EST Consult [facility] Medicine Specialties [address] [place] [address] Ida Nayak PA [address] [place] [address] 06/19/2024 11:00 AM EDT Appointment [facility] Radiation [id number] [place] [address] Leandro Seaman MD [address] [email or web address] [address] [place] [phone] documented as of this encounter Visit Diagnoses Not on filedocumented in this encounter Additional Health Concerns Assessment Noted Time A fall risk assessment has been complete d for the patient 07/30/2021 10:04 AM EDT documented as of this encounter Care Teams Acid Maker Relationship Specialty Start Date End Date Pcp, No [address] [place] [address] PCP - General Family Medicine 07/30/21 04/06/22 Leandro Seaman MD [address] [facility] [[email or web address] [address] [place] [phone] Consulting Physician Radiation Oncology 07/30/21 documented as of this encounter
--- OUTSIDE RECORDS SUMMARY | 2024-01-11 09:14 | XMS_ITS | Encounter Summary ---
Author Organization Healthcare Address [address] [place] [address] Care Team Providers Care Clinical Quality Analyst Name Role Phone Cruzito Seaman MD Unavailable [phone] Pcp, No Primary Care Provider Unavailabl e Reason for Referral * Imaging (Routine) - Closed Specialty Diagnoses / Procedures Referred By Shannan schmitt Referred To Contact Radiology Diagnoses 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) Procedures PET/CT FDG Skull Base To Mid Thigh Cruzito Seaman MD [address] [facility] [id number] [place] [address] Phone: tel: fax: Referral ID Status Reason Start Date Expiration Date Visits Re quested Visits Authorized [id number] Closed 07/30/2021 01/29/2023 2 2 Encounter Details Date Type Department Care Team (Late st Contact Info) Description 07/30/2021 Orders Only [facility] Radiation [address] [facility] [id number] [place] [address] Borck Munguia MD [address] [place] [address] Malignant neoplasm of upper lobe of left [...] Description 01/15/2024 10:00 AM EST Ancillary Procedure [facility] Medicine Specialties [address] [place] [address] 01/15/2024 11:00 AM EST Consult [facility] Medicine Specialties [address] [place] [address] Ida Nayak PA [address] [place] [address] 06/19/2024 11:00 AM EDT Appointment [facility] Radiation [id number] [place] [address] Cruzito Seaman MD [address] [place] [address] documented as of this encounter Results * [...] TO MID THIGH ordered by CRUZITO SEAMAN, [id number] CLINICAL INDICATION: 75 year-oldmalewith history of stage [...] scanner: Siemens Biograph 40 mCT. PET/CT acquisition: Loyhaf-rm-aax-thighs. Standardized uptake value (SUV): Corrected for body weight only. CT: Low-dose, unk-lypmkw-lhll, without intravenous contrast. TOTAL DLP (Dose Length [...] TO MID THIGH ordered by CRUZITO HERNÁNDEZ, [id number] CLINICAL INDICATION: 75 year-oldmalewith history of stage [...] scanner: Siemens Biograph 40 mCT. PET/CT acquisition: Sdksab-td-krg-thighs. Standardized uptake value (SUV): Corrected for body weight only. CT: Low-dose, cxq-dujoqe-awre, without intravenous contrast. TOTAL DLP (Dose Length [...] documented as of this encounter Care Teams Clinical Quality Analyst Relationship Specialty Start Date End Date Pcp, No [address] [place] [address] PCP - General Family Medicine 07/30/21 04/06/22 Cruzito Seaman MD [address] [facility] [address] [place] [address] Consulting Physician Radiation Oncology 07/30/21 documented as of this encounter
--- OUTSIDE RECORDS SUMMARY | 2024-01-11 09:14 | XMS_ITS | Encounter Summary ---
Author Organization Healthcare Address [address] [place] [address] Care Team Providers Care Bi Application Developer Name Role Phone Cruzito Seaman MD Unavailable [phone] Pcp, No Primary Care Provider Unavailabl e Reason for Referral * Imaging (Routine) - Closed Specialty Diagnoses / Procedures Referred By Shannan schmitt Referred To Contact Radiology Diagnoses 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) Procedures CT Chest wo IV Contrast CT Chest w and wo IV Contrast Cruzito Seaman MD [address] [address] Phone: tel: fax: Referral ID Status Reason Start Date Expiration Date Visits Re quested Visits Authorized [id number] Closed 1 1 Reason for Visit * Imaging (Routine) - Closed Specialty Diagnoses / Procedures Referred By Shannan schmitt Referred To Contact Radiology Diagnoses 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) Procedures CT Chest wo IV Contrast CT Chest w and wo IV Contrast Cruzito Seaman MD [address] [address] Phone: tel: fax: Referral ID Status Reason Start Date Expiration Date Visits Re quested Visits Authorized [id number] Closed 1 1 Encounter Details Date Type Department Care Team (Latest Contact Info) Description 07/30/2021 9:28 AM EDT - 07/30/2021 9:48 AM EDT Hospital Encounter [facility] [address] [place] [address] Malignant neoplasm of upper lobe of left [...] encounter Medications at Time of Discharge atorvastatin (Lipitor) 80 MG tablet Take 1 tablet (80 mg) by mouth every night. 06/05/2020 clopidogrel (Plavix) 75 MG tablet TAKE 1 TABLET BY MOUTH ONCE DAILY FOR ANTIPLATELET 06/06/2020 denosumab (Prolia) 60 MG/ML solution prefilled syringe 1 milliliter(s) subcutaneous every 6 months spironolactone (Aldactone) 25 MG tablet 1 tablet [...] [facility]ties [address] [place] [address] 01/15/2024 11:00 AM EST Consult [facility] [address], [address] [place] [address] Ida Nayak PA [address] [place] [address] 06/19/2024 11:00 AM EDT Appointment [facility] [id number] [place] [address] Cruzito Seaman MD [address] [place] [address] documented as of this encounter Procedures Procedure Name Priority Date/Time Associated Diagnosis Comments CT CHEST WO IV CONTRAST Routine 07/30/2021 9:36 AM EDT 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) documented in this encounter Results * CT Chest wo IV Contrast (07/30/2021 9:36 AM EDT) Anatomical Region Laterality Modality Chest Computed Tomogra phy Impressions 07/30/2021 10:27 AM EDT Increased size of the left apical nodule, suspicious for malignancy. Consider PET/CT or tissue sampling for further evaluation. CRITICAL RESULT: No. COMMUNICATION: Per this written report. By electronically signing this report, I, the attending physician, attest that I have personally reviewed the images/data for the above examination(s) and agree with the final edited report. Dictated by April To on 07/30/2021 9:40 AM Signed by Sampson Cast on 07/30/2021 10:27 AM Narrative 07/30/2021 10:27 AM EDT Exam/Procedure: CT CHEST WO IV CONTRAST ordered by CRUZITO SEAMAN, [id number] CLINICAL INDICATION: Non-small cell lung cancer, non-metastatic, assess treatment response TECHNIQUE: Multiple CT helical images were obtained from thoracic inlet through upper abdomen without administration of IV contrast. Total DLP (Dose-Length Product): 123.53 mGy.cm. Please note: The reported value represents the total of one or more individual components during the CT acquisition on this date and at this time, and as such, the same value may appear in more than one CT report depending on the interpreting/reporting physicians. COMPARISON: 07/30/2020: CT chest with contrast FINDINGS: Mediastinum and Pleura: No mediastinal or hilar adenopathy. Stable left pleural thickening. No pleural effusion. Stable trace pericardial effusion. Coronary artery stents. Atherosclerotic calcification along the aorta and its major branching vessels. Patulous upper thoracic esophagus with minimal layering debris. Lungs: Moderate upper lobe predominant emphysema. Similar appearance of the left suprahilar radiation-induced fibrosis with associated left upper lobe bronchial stenosis. Increased size of the left apical nodule now measuring 12 mm (series 2, image 28), previously 8 mm, with slightly increased adjacent architectural distortion, better appreciated compared to 2020 CT. The additional smaller bilateral pulmonary nodules are similar prior. Upper Abdomen: No acute or suspicious findings in the visualized upper abdomen. Prior cholecystectomy with small cystic gallbladder remnant (series 2, image 106). Stable 17 mm left adrenal nodule. Unchanged small duodenal lipoma (series 2, image 124). Musculoskeletal: No suspicious lytic or sclerotic lesion. Procedure Note Sampson Cast MD - 07/30/2021 Exam/Procedure: CT CHEST WO IV CONTRAST ordered by CRUZITO SEAMAN,[id number] CLINICAL INDICATION: Non-small cell lung cancer, non-metastatic, assess treatment response TECHNIQUE: Multiple CT helical images were obtained from thoracic inlet through upperabdomen without administration of IV contrast. Total DLP (Dose-Length Product): 123.53 mGy.cm. Please note: The reportedvalue represents the total of one or more individual components during theCT acquisition on this date and at this time, and as such, the same valuemay appear in more than one CT report depending on theinterpreting/reporting physicians. COMPARISON: 07/30/2020: CT chest with contrast FINDINGS: Mediastinum and Pleura: No mediastinal or hilar adenopathy. Stable leftpleural thickening. No pleural effusion. Stable trace pericardialeffusion. Coronary artery stents. Atherosclerotic calcification along theaorta and its major branching vessels. Patulous upper thoracic esophaguswith minimal layering debris. Lungs: Moderate upper lobe predominant emphysema. Similar appearance ofthe left suprahilar radiation-induced fibrosis with associated left upperlobe bronchial stenosis. Increased size of the left apical nodule nowmeasuring 12 mm (series 2, image 28), previously 8 mm, with slightlyincreased adjacent architectural distortion, better appreciated comparedto 2020 CT. The additional smaller bilateral pulmonary nodules are similarprior. Upper Abdomen: No acute or suspicious findings in the visualized upperabdomen. Prior cholecystectomy with small cystic gallbladder remnant(series 2, image 106). Stable 17 mm left adrenal nodule. Unchanged smallduodenal lipoma (series 2, image 124). Musculoskeletal: No suspicious lytic or sclerotic lesion. IMPRESSION: Increased size of the left apical nodule, suspicious for malignancy.Consider PET/CT or tissue sampling for further evaluation. CRITICAL RESULT: No. COMMUNICATION: Per this written report. By electronically signing this report, I, the attending physician, attyannthat I have personally reviewed the images/data for the aboveexamination(s) and agree with the final edited report. Dictated by April To on 07/30/2021 9:40 AM Signed by Sampson Cast on 07/30/2021 10:27 AM us Cruzito Seaman MD IMG CT PROCEDURES Final Resu lt documented in this encounter Visit Diagnoses Diagnosis 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) documented in this encounter Additional Health Concerns Assessment Noted Time A fall risk assessment has been complete d for the patient 07/30/2021 10:04 AM EDT documented as of this encounter Care Teams Bi Application Developer Relationship Specialty Start Date End Date Pcp, No [address] [place] [address] PCP - General Family Medicine 07/30/21 04/06/22 Cruzito Seaman MD 800 [facility] [address] [place] [address] Consulting Physician Radiation Oncology 07/30/21 documented as of this encounter
--- OUTSIDE RECORDS SUMMARY | 2024-01-11 09:14 | XMS_ITS | Encounter Summary ---
Author Organization [facility] Address [address] [place] [address] Care Team Providers Care Hadoop Architect Name Role Phone Cruzito Seaman MD Unavailable [phone] Pcp, No Primary Care Provider Unavailabl e Reason for Referral * Imaging (Routine) - Closed Specialty Diagnoses / Procedures Referred By Shannan schmitt Referred To Contact Radiology Diagnoses 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) Procedures PET/CT FDG Skull Base To Mid Thigh Cruzito Seaman MD [address] [address] Phone: tel: fax: Referral ID Status Reason Start Date Expiration Date Visits Re quested Visits Authorized [id number] Closed 07/30/2021 01/29/2023 2 2 Reason for Visit * Imaging (Routine) - Closed Specialty Diagnoses / Procedures Referred By Shannan schmitt Referred To Contact Radiology Diagnoses 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) Procedures PET/CT FDG Skull Base To Mid Thigh Cruzito Seaman MD [address] [address] Phone: tel: fax: Referral ID Status Reason Start Date Expiration Date Visits Re quested Visits Authorized [id number] Closed 07/30/2021 01/29/2023 2 2 Encounter Details Date Type Department Care Team (Latest Contact Info) Description 08/11/2021 10:29 AM EDT - 08/11/2021 1:56 PM EDT Hospital Encounter [facility] Radiology [address] [place] [address] Malignant neoplasm of upper lobe of left [...] [facility] [address], [address] [place] [address] 01/15/2024 11:00 AM EST Consult [facility] Medicine Specialties [address] [place] [address] Ida Nayak PA [address] [place] [address] 06/19/2024 11:00 AM EDT Appointment [facility] [id number] [place] [address] Cruzito Seaman MD [address] [place] [address] documented as of this encounter Procedures Procedure Name Priority Date/Time Associated Diagnosis Comments PET/CT FDG SKULL BASE TO MID THIGH Routine 08/11/2021 12:36 PM EDT 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) POCT GLUCOSE METER UNSOLICITED RESULTS Routine 08/11/2021 11:01 AM EDT documented in this encounter Results [...] TO MID THIGH ordered by CRUZITO SEAMAN, [id number] CLINICAL INDICATION: 75 year-oldmalewith history of stage [...] scanner: Siemens Biograph 40 mCT. PET/CT acquisition: Bxvypi-df-bqk-thighs. Standardized uptake value (SUV): Corrected for body weight only. CT: Low-dose, mpq-jjsgdq-mtcz, without intravenous contrast. TOTAL DLP (Dose Length [...] TO MID THIGH ordered by CRUZITO HERNÁNDEZ, [id number] CLINICAL INDICATION: 75 year-oldmalewith history of stage IIIB(cT4,cN2,cM0)non small cell lungcancer diagnosed in 2016, status post radiation therapy completed 10/2016.CT chest [...] scanner: Siemens Biograph 40 mCT. PET/CT acquisition: Ediqzy-pp-rjx-thighs. Standardized uptake value (SUV): Corrected for body weight only. CT: Low-dose, xcf-[id number]-fgot, without intravenous contrast. TOTAL DLP (Dose Length [...] by Magaly Cotton on 08/11/2021 2:03 PM Cruzito Seaman MD IMG NM PROCEDURES Final Resu lt * (ABNORMAL) POCT glucose meter (08/11/2021 11:01 AM EDT) POCT Glucose 103(H) 74 - 99 mg/dL 08/12/2021 9:00 AM EDT [facility] Comment:Accuracy of a glucos e result obtained from a capillary whole blood specimen relies upon adequate, non-compromised capillary blood flow. If the capillary glucose result is not consistent with the patient's clinical signs and symptoms, glucose testing should be repeated with either an arterial or venous sample on the glucometer or sent to the main labortory for testing. Comment 08/12/2021 9:00 AM EDT [facility] Animal Control Specialist ID Bobbi Perez 9:00 AM EDT [email or web address] Device ID [id number] 08/12/2021 9:00 AM EDT [facility] Specimen Type POC Capillary 08/12/2021 9:00 AM EDT [email or web address] Blood Capillary blood specimen / Unknown 08/11/2021 11:01 AM EDT 08/12/2021 9:00 AM EDT Generic Provider Poct LAB POINT OF CARE TEST DOCKED DEVICE UNSOLICITED RESULTS Final Result [facility] [address] [place] [address] documented in this encounter Visit Diagnoses Diagnosis 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) documented in this encounter Administered Medications Inactive Administered Medications - up to 3 most recent administrations Medication Order MAR Action Action Date Dose Rate Site fludeoxyglucose F-18 (FDG 18) radio-isotope injection 10 millicurie 10 millicurie, Intravenous, Once in imaging, 1 dose, Starting on Mon08/11/21 at 1102, Until Mon08/11/21 at 1110, Routine, Imaging NM Protocol Orders Given 08/11/2021 11:10 AM EDT 11.7 millicuries documented in this encounter Additional Health Concerns Assessment Noted Time A fall risk assessment has been complete d for the patient 08/11/2021 2:05 PM EDT documented as of this encounter Care Teams Hadoop Architect Relationship Specialty Start Date End Date Pcp, No [address] [place] [address] PCP - General Family Medicine 07/30/21 04/06/22 Cruzito Seaman MD 800 [facility] [address] [place] [address] Consulting Physician Radiation Oncology 07/30/21 documented as of this encounter
--- OUTSIDE RECORDS SUMMARY | 2024-01-11 09:14 | XMS_ITS | Encounter Summary ---
Author Organization [facility] Address [address] [place] [address] Care Team Providers Care Weight Trainer Name Role Phone Lakhwinder Link MD Primary Care Provider [phone] Encounter Details Date Type Department Care Team (Latest Contact Info) Description 07/30/2020 Travel Social History Tobacco Use Types Packs/Day [...] Exposure Response Date Recorded In the last month, have you been in contact with someone who was confirmed or suspected to have Coronavirus / COVID-19? No / Unsure 07/30/2020 9:48 AM EDT documented as of this encounter Plan of Treatment Upcoming Encounters Date Type Department Care Team (Late st Contact Info) Description 01/15/2024 10:00 AM EST Ancillary Procedure [facility] Specialties [address] [place] [address] 01/15/2024 11:00 AM EST Consult [facility] [address] [place] [address] Ida Nayak PA [address] [place] [address] 06/19/2024 11:00 AM EDT Appointment [facility] [id number] [place] [phone] Leandro Seaman MD [address] [place] [address] documented as of this encounter Visit Diagnoses Not on filedocumented in this encounter Additional Health Concerns Assessment Noted Time A fall risk assessment has been complete d for the patient 07/30/2020 11:08 AM EDT documented as of this encounter Care Teams Weight Trainer Relationship Specialty Start Date End Date Lakhwinder Link MD [address] [facility] [place] [address] PCP - General 06/19/20 07/29/21 documented as of this encounter
--- OUTSIDE RECORDS SUMMARY | 2024-01-11 09:14 | XMS_ITS | Encounter Summary ---
Author Organization [facility] Address [address] [place] [address] Care Team Providers Care Customer Assistance Representative Name Role Phone Lakhwinder Link MD Primary Care Provider Reason for Referral * Imaging (Routine) - Closed Specialty Diagnoses / Procedures Referred By Contac t Referred To Contact Radiology Diagnoses 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) Procedures CT Chest wo IV Contrast CT Chest w and wo IV Contrast Cruzito Seaman MD [address] [place] [address] Phone: tel: fax: Referral ID Status Reason Start Date Expiration Date Visits Re quested Visits Authorized [id number] Closed 1 1 Reason for Visit * Reason Comments Follow-up f/u after scan Encounter Details Date Type Department Care Team (Latest Contact Info) Description 07/30/2020 10:56 AM EDT - 07/30/2020 11:59 PM EDT Hospital Encounter [facility] 800 [facility] [address] [place] [address] Cruzito Seaman MD [address] [address] Malignant neoplasm of upper lobe [...] Sign Reading Time Taken Comments Blood Pressure 132/75 07/30/2020 11:04 AM EDT Pulse 87 07/30/2020 11:04 AM EDT Temperature - - Respiratory Rate 16 07/30/2020 11:04 AM EDT Oxygen Saturation 91% 07/30/2020 11:04 AM EDT Inhaled Oxygen Concentration - - Weight 73 kg (160 lb 15 oz) 07/30/2020 11:04 AM EDT Height 172.7 cm (5' 8 ) 07/30/2020 11:04 AM EDT Body Mass Index 24.47 07/30/2020 11:04 AM EDT documented in this [...] 06/16/2020 4 furosemide (Lasix) 20 MG tablet TAKE 1 TABLET DAILY DIRECTED FOR FLUID 06/17/2020 2 ranolazine (Ranexa) 500 MG 12 hr tablet TAKE 1 TABLET BY MOUTH TWICE DAILY FOR CHEST PAINS 07/14/2020 2 simvastatin (Zocor) 40 MG tablet 1 tab(s) orally once a day (at bedtime) 3 documented as of this encounter Miscellaneous Notes * Patient Instructions - Cruzito Seaman MD - 07/30/2020 11:[address] scan of chest in 12 months * Progress Notes - Cruzito Seaman MD - 07/30/2020 11:45 AM EDT Radiation Oncology Follow Up Patient Name: Carlo Noriega Date of : 1945 75 y.o. Encounter Date: 07/30/2020 Carlo Noriega was seen today at the [facility] approximately 6 years following his radiotherapy for stage IIIB non small cell lung cancer.. He presents today to discuss follow-up in his cancer care. Diagnosis: T4N2M0, stage IIIB nonsmall cell lung carcinoma Radiation Delivered 60 Gy along with a stereotactic boost to the residual disease of 19 5 Gy in 3 additional fractions,completed in 10/2016 INTERVAL HISTORY: Carlo Noriega reports no new issues. No new dyspnea. Reports heart disease requiring stents.Review of 2014 treatment plans reveal his RT was significantly above heart with low cardiac doses. KPS: 90 CURRENT OUTPATIENT MEDICATIONS: Medications reviewed. ALLERGIES: Allergy history was reviewed. PHYSICAL EXAM: Visit Vitals BP 132/75 Pulse 87 Resp 16 Ht 1.727 m (5' 8 ) Wt 73 kg (160 lb 15 oz) SpO2 91% BMI 24.47 kg/m?? Smoking Status Never Smoker BSA 1.87 m?? General: Sitting comfortably. No acute distress. HEENT: Eyes: Extraocular movements are intact. Sclerae are anicteric. Respiratory: Symmetric, nonlabored. No obvious crackles, wheezes or cough noted MSK: Moves all extremities spontaneously. No LE edema. Neurological: Alert and oriented x3. Cranial nerves II through XII are intact grossly. Psych: Appropriate mood and affect. Imaging: CT scan dated 07/30/2020 reviewed by myself. Formal Radiology report: FINDINGS: Mediastinum and Pleura: Residual soft tissue [...] sclerotic lesion. IMPRESSION: No evidence of thoracic progression. ASSESSMENT AND PLAN: Carlo Noriega is a very pleasant 75 y.o. year-old male with a prior diagnosis as above. He is now 6 years out from definitive treatment of his stage IIIB NSCLC with no evidence of disease. We will see him again in 12 months time with repeat CT scan of the chest. He will continue to follow with his other healthcare providers in the interim as scheduled. Thank you for the opportunity to participate in the care of the patient. Please contact our department withany questions. Total time 20 minutes, with greater than 50% of time spent counseling the patient and in coordination of care. Sincerely, Cruzito Seaman MD [facility] RADIATION [address] [facility] [place] [address] documented in this encounter Plan of Treatment Upcoming Encounters Date Type Department Care Team (Late st Contact Info) Description 01/15/2024 10:00 AM EST Ancillary Procedure [facility] Medicine Specialties [address] [place] [address] 01/15/2024 11:00 AM EST Consult [facility] Medicine Specialties [address], [address] [place] [address] Ida Nayak PA [address] [place] [address] 06/19/2024 11:00 AM EDT Appointment [facility] [id number] [place] [phone] Cruzito Seaman MD [address] [place] [address] documented as of this encounter [...] WO IV CONTRAST ordered by CRUZITO SEAMAN, [id number] CLINICAL INDICATION: Non-small cell lung cancer, non-metastatic, [...] CHEST WO IV CONTRAST ordered by CRUZITO SEAMAN,[id number] CLINICAL INDICATION: Non-small cell lung cancer, non-metastatic, [...] as of this encounter Care Teams Customer Assistance Representative Relationship Specialty Start Date End Date Lakhwinder Link MD [address] [place] [address] PCP - General 06/19/20 07/29/21 documented as of this encounter
--- OUTSIDE RECORDS SUMMARY | 2024-01-11 09:14 | XMS_ITS | Encounter Summary ---
Author Organization Healthcare Address [address] [place] [address] Care Team Providers Care Rn Endoscopy Name Role Phone Leandro Seaman MD Unavailable [phone] Pcp, No Primary Care Provider Unavailabl e Encounter Details Date Type Department Care Team (Latest Contact Info) Description 07/30/2021 Travel Social History Tobacco Use Types Packs/Day [...] Procedure [facility] Medicine Specialties [address] [place] [address] 01/15/2024 11:00 AM EST Consult [facility] Medicine [facility]ties [address] [place] [address] Ida Nayak PA [address] [place] [address] 06/19/2024 11:00 AM EDT Appointment [facility] [address] [facility] [id number] [place] [address] Leandro Seaman MD 800 [facility] [address] [place] [address] documented as of this encounter Visit Diagnoses Not on filedocumented in this encounter Additional Health Concerns Assessment Noted Time A fall risk assessment has been complete d for the patient 07/30/2021 10:04 AM EDT documented as of this encounter Care Teams Rn Endoscopy Relationship Specialty Start Date End Date Pcp, No [address] [place] [address] PCP - General Family Medicine 07/30/21 04/06/22 Leandro Seaman MD [id number] [place] [address] Consulting Physician Radiation Oncology 07/30/21 documented as of this encounter
--- OUTSIDE RECORDS SUMMARY | 2024-01-11 09:14 | XMS_ITS | Encounter Summary ---
Author Organization [facility] Address [address] [place] [address] Care Team Providers Care Heel Nail Rasper Name Role Phone Lakhwinder Link MD Primary Care Provider [phone] Reason for Referral * Imaging (Routine) - Closed Specialty Diagnoses / Procedures Referred By Erikac t Referred To Contact Radiology Diagnoses Lung cancer (CMS/HCC) Procedures CT Chest w IV Contrast Cruzito Seaman MD [address] [address] Phone: tel: fax: Referral ID Status Reason Start Date Expiration Date Visits Re quested Visits Authorized [id number] Closed 06/28/2020 12/25/2020 1 1 Reason for Visit * Imaging (Routine) - Closed Specialty Diagnoses / Procedures Referred By Erikac oskar Referred To Contact Radiology Diagnoses Lung cancer (CMS/HCC) Procedures CT Chest w IV Contrast Cruzito Seaman MD [address] [address] Phone: tel: fax: Referral ID Status Reason Start Date Expiration Date Visits Re quested Visits Authorized [id number] Closed 06/28/2020 12/25/2020 1 1 Encounter Details Date Type Department Care Team (Latest Contact Info) Description 07/30/2020 9:58 AM EDT - 07/30/2020 10:55 AM EDT Hospital Encounter [facility] Radiology [address] [place] [address] Lung cancer ([facility]) Discharge Disposition: Home or Self Care Social [...] BY MOUTH ONCE DAILY FOR ANTIPLATELET 06/06/2020 spironolactone (Aldactone) 25 MG tablet 1 tablet (25 mg). //Sat 05/19/2020 bisoprolol (Zebeta) 5 MG tablet TAKE 1 [...] TWICE DAILY FOR CHEST PAINS 07/14/2020 2 documented as of this encounter Plan of Treatment Upcoming Encounters Date Type Department Care Team (Late st Contact Info) Description 01/15/2024 10:00 AM EST Ancillary Procedure [facility] [address] [place] [address] 01/15/2024 11:[address] [facility] [address] [place] [address] Ida Nayak PA [address] [place] [address] 06/19/2024 11:00 AM EDT Appointment [facility] Radiation [id number] [place] [id number] Cruzito Seaman MD [address] [place] [address] documented as of this encounter Procedures Procedure Name Priority Date/Time Associated Diagnosis Comments CT CHEST W IV CONTRAST Routine 07/30/2020 10:47 AM EDT Lung cancer (CMS/HCC) POCT CREATININE UNSOLICITED RESULTS Routine 07/30/2020 10:19 AM EDT documented in this encounter Results * CT Chest w IV Contrast (07/30/2020 10:47 AM EDT) Anatomical Region Laterality Modality Chest Computed Tomogra phy Impressions 07/30/2020 11:04 AM EDT No evidence of thoracic progression. CRITICAL RESULT: No. COMMUNICATION: Per this written report. Signed by Lakhwinder Montero on ??07/30/2020 11:04 AM Narrative 07/30/2020 11:04 AM EDT Exam/Procedure: CT CHEST W IV CONTRAST ordered by CRUZITO SEAMAN, [id number] CLINICAL INDICATION: 3B lung cancer TECHNIQUE: Multiple CT helical images were obtained from thoracic inlet through upper abdomen with administration of IV contrast. 80 ??mL of Omnipaque-300 were administered intravenously. Total DLP [...] suspicious lytic or sclerotic lesion. Procedure Note Lakhwinder Montero MD - 07/30/2020 Exam/Procedure: CT CHEST W IV CONTRAST ordered by CRUZITO SEAMAN,[id number] CLINICAL INDICATION: 3B lung cancer TECHNIQUE: Multiple CT helical images were obtained from thoracic inlet through upperabdomen with administration of IV contrast. 80 mL of Omnipaque-300 wereadministered intravenously. Total DLP (Dose-Length Product): 114.15 mGy.cm. Please note: The reportedvalue represents the total of one or more individual components during theCT acquisition on this date and at this time, and as such, the same valuemay appear in more than one CT report depending on theinterpreting/reporting physicians. COMPARISON: 2019 FINDINGS: Mediastinum and Pleura: Residual soft tissue in the left hilum andextending along the bronchovascular bundle and medial left-sided pleuralappears similar to comparison. Small volume of left-sided pleural fluidand pleural thickening are similar to comparison. Lungs: Several small lung nodules are stable from comparison. Emphysemawith several tiny groundglass nodules again noted. Upper Abdomen: No suspicious lesions in the partially visualized upperabdomen. Musculoskeletal: No suspicious lytic or sclerotic lesion. IMPRESSION: No evidence of thoracic progression. CRITICAL RESULT: No. COMMUNICATION: Per this written report. Signed by Lakhwinder Montero on 07/30/2020 11:04 AM us Cruzito Seaman MD IMJordi CT PROCEDURES Final Resu lt * POCT creatinine (07/30/2020 10:19 AM EDT) Creatinine, Point of Care 1.2 0.8 - 1.3 mg/dL 07/30/2020 10:30 AM EDT [facility] POCT eGFR >60 >60 mL/min/1 .73m*2 07/30/2020 10:30 AM EDT [facility] Customer Loyalty Representative ID DAVION YOON 07/30/2020 10:30 AM EDT [facility] Device ID [id number] 07/30/2020 10:30 AM EDT [facility] Comment 07/30/2020 10:30 AM EDT [facility] Comment:Testing performed by staff at point of care. All tests are immediately reported to the physician or primary caregiver. Results have not been confirmed by the Clinical Laboratory. It is the responsibility of the physician to confirm results. Blood Venous blood specimen / Unknown 07/30/2020 10:19 AM EDT 07/30/2020 10:30 AM EDT us Generic Provider Poct LAB POINT OF CARE TEST DOCKED DEVICE UNSOLICITED RESULTS Final Result Performing Organization Address City/State/[facility] Co de Phone Number [facility] [address] [place] [phone] documented in this encounter Visit Diagnoses Diagnosis Lung cancer (CMS/HCC) Malignant neoplasm of bronchus and lung, unspecified site documented in this encounter Administered Medications Inactive Administered Medications - up to 3 most recent administrations Medication Order MAR Action Action Date Dose Rate Site iohexol (OMNIPaque) 300 MG/ML injection 100 mL 100 mL, Intravenous, Once in imaging, 1 dose, Starting on Yu 07/30/20 at 1009, Until Yu 07/30/20 at 1041, Routine, Imaging Protocol Orders Given 07/30/2020 10:41 AM EDT 80 mL documented in this encounter Additional Health Concerns Assessment Noted Time A fall risk assessment has been complete d for the patient 07/30/2020 11:08 AM EDT documented as of this encounter Care Teams Heel Nail Rasper Relationship Specialty Start Date End Date Lakhwinder Link MD [address] [place] [address] PCP - General 06/19/20 07/29/21 documented as of this encounter
== END 2024-01-11 09:30 | disposition home or self-care (01) ==
LOC: INF 09:06
PROVIDERS: PCP Internal Medicine; Visit Provider Nurse Practitioner Family
DX: M81.0 Age-related osteoporosis without current pathological fracture (principal)
CPT/HCPCS: 96372; J0897

== ENCOUNTER 2024-01-18 14:00 | Outpatient (RCR) | payer MEDICARE, SELFPAY ==
--- NOTE | 2023-11-02 15:39 | HMH.PTOPEV ---
PT Outpatient Evaluation Rehab PT Outpatient Evaluation Start: 11/02/23 13:54 Freq: Status: Active Protocol: Document 11/02/23 14:33 HOSSEIN (Rec: 11/02/23 15:37 HOSSEIN [id number]) E-signed By Darell Hartmann, PT Outpatient Therapy Subjective History Subjective History Pt reports h/o chronic neck since undergoing 'double by- pass heart surgery on May 11 this year.' Pt reports left > right sided neck pain since sx., stiffness, and ' feels like it's stuck or needs to pop'. Pt denies any radicular s/s into either UE, and reports mostly localized s /s from CT junction up to base of skull and laterally into UT mm. New diagnosis of cancer in past 12 No months? Chief Complaint Pain,Stiff,Catches/Locks Symptom Type Ache,Sharp,Dull,Stabbing Symptoms Relieved By Rest/Positioning Symptoms Aggravated By Physical Activity,Twisting Prior Functional Limitations Housework,Driving,Sleeping Current Functional Limitations Housework,Driving,Sleeping Symptom Description Constant but Variable Level of pain today (0-10) 2 Pain scale - at its best (0-10) 0 Pain scale - at its worst (0-10) 7 Cervical Eval Palpation Cervical Muscles R Cervical Paraspinal,L Cervical Paraspinal,R Suboccipital,L Suboccipital,R CT Junction,L CT Junction,R Upper Trapezius,L Upper Trapezius Cervical/Thoracic Palpation Findings Tenderness,Trigger Point, Muscle Guarding Posture Head/C-Spine Posture Sitting Position Flexed Head/C-Spine Posture Standing Position Flexed Flexibility Deficits Upper Trapezius Muscle Length (R) Moderate Tightness,(L) Moderate Tightness Scalene Group Muscle Length (R) Moderate Tightness,(L) Moderate Tightness Passive Joint Mobility Cervical PIVM Dec: R OA L OA R AA L AA R C2/3 L C2/3 R C3/4 L C3/4 R C4/5 L C4/5 R C5/6 L C5/6 R C6/7 L C6/7 R C7/T1 L C7/T1 AROM Cervical Spine Extension Active Range of 0-25 Motion (degrees) Cervical Spine Flexion Active Range of 0-70 Motion (degrees) Cervical Spine Right Lateral Flexion 0-15 Active Range of Motion (degrees) Cervical Spine Left Lateral Flexion 0-15 Active Range of Motion (degrees) Cervical Spine Right Rotation Active 0-65 Range of Motion (degrees) Cervical Spine Left Rotation Active 0-45 Range of Motion (degrees) MMT Bilateral Deltoid (C5) 4 Good Biceps Brachii Strength Grade 5 Normal Wrist Extension Strength Grade 5 Normal Triceps Brachii Strength Grade 5 Normal Wrist Flexion Strength Grade 5 Normal Extensor Pollicis Longus Strength Grade 5 Normal Finger Abduction Strength Grade 5 Normal Special Test C-Spine Foraminal Compression ([place]) Negative Left,Negative Right Test C-Spine Foraminal Distraction Test Negative Neck Disability Index Neck Disability Index Section 1: Pain Intensity The pain is moderate at the moment Section 2: Personal Care (washing, I can look after myself dressing, etc.) normally but it causes extra pain Section 3: Lifting Pain prevents me from lifting heavy weights, but I can manage light to Section 4: Reading I can read as much as I want to with slight pain in my neck Section 5: Headaches I have no headaches at all Section 6: Concentration I can concentrate fully when I want to with no difficulty Section 7: Work I cannot do my usual work Section 8: Driving I can drive my car as long as I want with slight pain in my neck Section 9: Sleeping My sleep is slightly disturbed (less than 1 hr sleepless) Section 10: Recreation I can't do any recreation activities NDI Score 17 Outpatient Therapy Assessment Impairments Problems/Impairmments Palpation Tenderness,Impaired Range of Motion,Impaired Strength,Impaired Driving, Impaired Household Care, Impaired Recreational Activities,Subjective C/O Pain ,Impaired Self Care/Self Management Prognosis Rehab Potential Good Clinical Impression Consistent with Diagnosis Yes Short Term Goals Number of Weeks 4 Decreased Palpation Tenderness Yes: 1-2/4 cervical mm Increase Range of Motion Yes: 75% of WFL CROM Increase Ability to Drive/Ride in Car Yes: 30MIN Restore Ability to Lift Objects to Waist Yes: 10# Level Improve Ability For Household Care Yes: 30MIN Decrease Subjective C/O Pain Yes: 3/10 W/ABOVE ACTIVITIES Patient to be Ind w/ HEP Yes Retirement Goals Number of Weeks 6-8 Decreased Palpation Tenderness Yes: 0-1/4 CERVICAL MM Increase Range of Motion Yes: WFL CROM Increase Strength Yes: WFL B/L UE'S W/O PAIN Increase Ability to Drive/Ride in Car Yes: 60MIN Restore Ability to Lift Objects to Waist Yes: 20# Level Improve Ability For Household Care Yes: 60MIN Return to Recreational Activities Yes: [employer] W/O PAIN Decrease Subjective C/O Pain Yes: 0-2/10 W/ABOVE ACTIVITIES Patient to be Ind w/ Advanced HEP Yes Outpatient Therapy Plan of Care Treatment Plan May Include Therapeutic Exercise Including Home Yes Exercise Program Manual Therapy Techniques Yes Neuromuscular Re-education Yes Therapeutic Activities to Return to Yes Previous Functional/Work Level ADL/Self Care Education Yes Mechanical Traction Yes Dry Needling Yes Thermal Modalities Yes Electrical Stimulation Yes Ultrasound/Phonophoresis Yes Eval/Re-Eval Yes Frequency Times per week 2-3 Duration Number of Weeks 6-8 Addendums This patient is a candidate for social No or vocational rehab? Patient/Guardian verbally acknowledges Yes understanding of treatment program and consents to further treatment? Patient/Guardian verbally acknowledges Yes understanding of diagnosis, prognosis and goals for treatment? Eval Complexity PT Charges 85686 - Moderate Complexity Shoulder/Elbow Eval Shoulder Objective Measurements Elbow Objective Measurements PHYSICIAN CERTIFICATION: I certify the specified therapy services for Carlo Noriega are required, authorized, and reviewed every 30 days.
--- NOTE | 2023-11-30 16:04 | HMH.RHREAS ---
Rehab Reassessment Rehab OP Re-assessment Start: 11/02/23 13:54 Freq: Status: Active Protocol: Document 11/30/23 14:56 FAUSTINOMERCY (Rec: 11/30/23 16:04 FAUSTINOMERCY [id number]) E-signed By Darell Hartmann, PT Neck Disability Index Neck Disability Index Section 1: Pain Intensity The pain is very mild at moment Section 2: Personal Care (washing, I can look after myself dressing, etc.) normally without causing extra pain Section 3: Lifting I can lift heavy weights without extra pain Section 4: Reading I can read as much as I want to with no pain in my neck Section 5: Headaches I have no headaches at all Section 6: Concentration I can concentrate fully when I want to with no difficulty Section 7: Work I can do as much work as I want to Section 8: Driving I can drive my car without any neck pain Section 9: Sleeping I have no trouble sleeping Section 10: Recreation I am able to engage in all my recreation activities with some pain in NDI Score 2 Rehab Re-assessment Subjective Subjective Pt reports significant improvements in neck pain since I eval, reporting 1/10 neck pain on VAS this pm, and feels 80-90% better overall Objective Objective Notes CROM: FLX 0-80, EXT 0-35, LEFT SB 0-40, RIGHT SB 0-38, B/L R 0-70 MMT: B/L UE'S WFL TTP: 0-1/4 cervical paraspinals, 1/4 bilateral UT mm, 1/4 bilateral suboccipital mm Assessment Progress Assessment Progressing as Expected Assessment Notes significantly improved NDI score, strength, TTP, and CROM Patient goals met STG'S 08/12 LTG'S 07/15 Goals Not Met LTG'S 04/14 Plan Plan Pt to continue w/skilled P.T. to make further improvements in CROM and TTP to allow for optimal function Frequency of Therapy 1-2x/wk Duration of therapy 2-4wks Time and Billing Re-Eval Time 12 Re-Eval Billing Units 1 PHYSICIAN CERTIFICATION: I certify the specified therapy services for Carlo Noriega are required, authorized, and reviewed every 30 days.
--- NOTE | 2024-01-01 14:51 | HMH.RHREAS ---
Rehab Reassessment Rehab OP Re-assessment Start: 11/02/23 13:54 Freq: Status: Active Protocol: Document 01/01/24 14:14 HOSSEIN (Rec: 01/01/24 14:51 HOSSEIN [id number]) E-signed By Darell Hartmann, PT Neck Disability Index Neck Disability Index Section 1: Pain Intensity I have no pain at the moment Section 2: Personal Care (washing, I can look after myself dressing, etc.) normally without causing extra pain Section 3: Lifting I can lift heavy weights but it gives extra pain Section 4: Reading I can read as much as I want to with no pain in my neck Section 5: Headaches I have no headaches at all Section 6: Concentration I can concentrate fully when I want to with no difficulty Section 7: Work I can only do my usual work, but no more Section 8: Driving I can drive my car as long as I want with slight pain in my neck Section 9: Sleeping My sleep is midly disturbed (1 -2 hrs sleepless) Section 10: Recreation I am able to engage in all my recreation activities with some pain in NDI Score 6 Rehab Re-assessment Subjective Subjective Pt reports some lingering stiffness in upper cervical spine which produces 3-4/10 neck pain on VAS, 'otherwise I really don't have any issues like I was having when we first started.' Objective Objective Notes CROM: FLX 0-85, EXT 0-28, LEFT SB 0-36, RIGHT SB 0-34, B/L R 0-70 MMT: B/L UE'S WFL TTP: 1-2/4 (upper C1-C4) cervical paraspinals, 0/4 bilateral UT mm, 2/4 bilateral suboccipital mm NDI: 6 Assessment Progress Assessment Slower Than Expected Assessment Notes slight regression w/some aspects of TTP and CROM, and some improvements as well Patient goals met STG'S 08/12 LTG'S 08/14(driving longer than 30min-no issues) Goals Not Met LTG'S 03/17 Plan Plan Pt to continue w/skilled P.T. to make further improvements in CROM and TTP, with emphasis on upper cervical PIVM and soft tissue mobility, to allow for optimal function Frequency of Therapy 1-2x/wk Duration of therapy 1-3wks Time and Billing Re-Eval Time 11 Re-Eval Billing Units 0 Charge for PT reassessment? No PHYSICIAN CERTIFICATION: I certify the specified therapy services for Carlo Noriega are required, authorized, and reviewed every 30 days.
== END 2024-01-18 23:59 | disposition home or self-care (01) ==
LOC: PT 14:00
PROVIDERS: Visit Provider Internal Medicine
DX: M54.2 Cervicalgia (principal)
CPT/HCPCS: 20561; 97012; 97014; 97035; 97110; 97140; 97163; G0283

== ENCOUNTER 2024-02-22 12:49 | Outpatient (RCR) | payer MEDICARE, SELFPAY | END 2024-05-29 14:00 | disposition home or self-care (01) | LOC: PULREHAB 12:49 | PROVIDERS: Visit Provider Physician Assistant | DX: J44.9 Chronic obstructive pulmonary disease, unspecified (principal) | CPT/HCPCS: 94626 ==

== ENCOUNTER 2024-02-23 09:18 | Outpatient (CLI) | payer MEDICARE, SELFPAY ==
--- NOTE | 2024-02-23 | CA_ITS ---
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 2D Dimensions LA Volume 32.00 mL LA Volume Index 17.98 mL/m2 (M/F) 16-34 EF AP4 51.60 % GL Strain -16.8 % M-Mode Dimensions RVDd 1.63 cm (0.9-2.6) LA Diam 3.17 cm (1.9-4.0) LVDd 4.76 cm (3.5-5.7) LVDs 3.76 cm (3.5-5.7) IVSd 0.88 cm (0.6-1.1) PWd 0.84 cm (0.6-1.1) EF (Teich) 42.70% FS 21.00% EDV (Teich) 105.40 mL ESV (Teich) 60.40 mL LV Diastology E Decel Time 167 (160-240 msec) E/A Ratio 1.3 Aortic Valve MATTY Index 1.57 cm2/m2 AoV Peak Tang. 127.0 (50-130 cm/s) AI PHT 808.00 ms AO Peak GR. 6.50 mmHg AO Mean GR. 3.20 (<5 mmHg) AO VTI 29.6 (18-25 cm) MATTY (VTI) 2.86 (2.5-4.5 cm2) Mitral Valve MV E Max Tang. 105.0 (40-130 cm/s) MV A Velocity 84.0 (40-130 cm/s) E/A Ratio 1.25 MV PHT 49.0 ms Tricuspid Valve TR P. Velocity 183.00 cm/s RAP Estimate 10.00 mmHg RVSP 23.30 mmHg Left Ventricle The left ventricle is normal size. The left ventricular systolic function is normal. The left ventricular ejection fraction is within the normal range. There is increased LV wall thickness. There is normal LV segmental wall motion. The left ventricular diastolic function is normal. LVEF is 55%. Right Ventricle The right ventricle is normal size. The right ventricular systolic function is normal. Atria The left atrium is mildly dilated. The right atrium size is normal. There is no Doppler evidence of interatrial shunt. Aortic Valve The aortic valve is mildly thickened. Moderate aortic regurgitation. There is no aortic valvular stenosis. Mitral Valve The mitral valve is normal in structure. No evidence of mitral valve stenosis. Mild to moderate mitral regurgitation. Tricuspid Valve Tricuspid valve is grossly normal in structure and function. Mild tricuspid regurgitation. RVSP is normal. Pulmonic Valve The pulmonary valve is normal in structure. Mild pulmonic regurgitation. Great Vessels The aortic root is normal in size. The ascending aorta is not well-visualized. IVC is normal in size and collapses >50% with inspiration. Pericardium There is no pericardial effusion. Other Information Study Quality: Fair Conclusion Normal biventricular systolic function. Mild LA dilation. Moderate AI. Mild to moderate MR. Mild TR, mild PI. Electronically signed by : Mica Alberts MD 03/03/2024 20:10:10
== END 2024-02-23 23:59 | disposition home or self-care (01) ==
LOC: RT 09:19
PROVIDERS: PCP Internal Medicine; Visit Provider Physician Assistant
DX: I51.7 Cardiomegaly (principal); I25.10 Atherosclerotic heart disease of native coronary artery without angina pectoris; R06.09 Other forms of dyspnea; J44.9 Chronic obstructive pulmonary disease, unspecified
CPT/HCPCS: 93306

== ENCOUNTER 2024-03-21 07:46 | Day surgery (SDC) | payer MEDICARE, SELFPAY ==
[2024-03-21] VITALS (11 sets, daily range): BP systolic 106–124; BP diastolic 54–81; PULSE 60–88; RESP 16–19; O2SAT 90–99; BMI 23.8
--- NOTE | 2024-03-21 07:08 | IR_ITS ---
APPROVED REPORT Patient Location: Outpatient Geotechnician: JASEN Owens RT (R) PROCEDURES Left heart catheterization Left ventriculogram Selective coronary angiogram INDICATION Known coronary artery disease, Accelerated angina pectoris Informed consent was obtained prior to the procedure. COMPLICATIONS NONE Estimated Blood Loss: LESS THAN 10 ML TECHNIQUE One percent lidocaine was used to anesthetize the right groin. The right femoral artery was accessed via the Seldinger technique. A 6-Malay sheath was placed in the right femoral artery. The JL-4 and JR-4 catheter was also used to perform left heart catheterization left ventriculogram and selective coronary angiogram. Therapeutic heparin was administered in anticipation of performing intravascular ultrasound however it was decided after further angiographic scrutiny the patient did not warrant intracoronary ultrasound. The apparatus was removed the groin is reprepped closure change sheath was removed and hemostasis was achieved using Perclose device patient was transferred to the postop putting in stable condition ANGIOGRAPHIC RESULTS The left main artery Has a stent in the proximal mid and distal segment which is widely patent free of in-stent restenosis The left anterior descending artery Has a stent originating off the left main artery which extends into the midportion. The stent is widely patent free of in-stent restenosis with excellent distal transitioning The circumflex artery Is widely patent with a stent originating from the left main artery and extending into the mid to distal portion. The stent is widely patent free of in-stent restenosis with excellent distal transitioning The right coronary artery Is patent in the proximal midportion and distally occluded. The distal vessel fills via [id number] collaterals The JUNIOR ventriculogram reveals Slightly reduced at 50% The left ventricular end-diastolic pressure 10 mmHg IMPRESSION Coronary artery disease as described above Slightly reduced ejection fraction of 50% Normal LVEDP PLAN 1. Patient's symptoms are nonischemic 2. Continue risk factor modification and standard medical therapy Electronically signed by : Carl Gaffney MD 03/21/2024 10:32:09
[2024-03-21 08:13] LABS: Basophils % 0.5 % (0.1-2.0); Eosinophils # 0.1 K/mm3 (0.0-0.4); Hematocrit 43.5 % (42.0-52.0); Hemoglobin 14.1 g/dL (14.1-18.0); Lymphocytes # 1.1 K/mm3 (0.7-4.5); Lymphocytes % 17.1 % (10-50); Mean Corpuscular HGB Conc 32.4 g/dL (31.8-35.4); Mean Corpuscular Hemoglobin 29.6 pg (27.0-31.2); Mean Corpuscular Volume 91.2 fl (80-94); Monocytes # 0.6 K/mm3 (0.1-1.0); Monocytes % 9.4 % (1.7-9.3); Neutrophils # 4.6 K/mm3 (1.8-7.8); Neutrophils % 70.1 % (37.0-80.0); Platelet Count 180 K/mm3 (142-424); Red Blood Count 4.77 M/mm3 (4.60-6.20); Red Cell Distribution Width 14.5 % (11.5-17.5); White Blood Count 6.6 K/mm3 (4.8-10.8)
[2024-03-21 09:32] LABS: Chloride 100 mmol/L (98-107); Potassium 4.4 mmoL/L (3.5-5.1); Sodium 137 mmol/L (136-145)
[2024-03-21 09:35] LABS: Anion Gap 13.4 mEq/L (5-15); Blood Urea Nitrogen 22 mg/dl (9-20); Calcium 9.5 mg/dl (8.4-10.2); Carbon Dioxide 28 mmol/L (22.0-30.0); Creatinine Clearance Estimated 50 mL/min (50-200); Estimated Glomerular Filt Rate 59 ml/min (>60); GFR (African American) 71 ML/MIN (>60); Glucose 102 mg/dl (74-100)
[2024-03-21] MEDS: HEPARIN 1,000 UNITS/ML 10ML VIAL (CATH LAB) 10000 UNIT IV (09:43)
[2024-03-21] MEDS: LIDOCAINE 1% 10ML MDV 20 ML IJ (09:43)
[2024-03-21] MEDS: HEPARIN 1,000 UNITS/500ML NS (CATH LAB) 3000 UNIT IV (09:44)
[2024-03-21] MEDS: diphenhydrAMINE 50MG/ML VIAL 50 MG IV (09:44)
[2024-03-21] MEDS: 0.9 % SODIUM CHLORIDE 500 ML 25 ML IV (09:45)
[2024-03-21] MEDS: FENTANYL 100MCG/2ML VIAL 50 MCG IV (10:37)
[2024-03-21] MEDS: MIDAZOLAM HCL 1MG/ML 5ML VIAL 1 MG IV (10:37)
[2024-03-21] MEDS: IOPAMIDOL-370 (76%);100ML BOTTLE 60 ML IV (10:56)
== END 2024-03-21 13:25 | disposition home or self-care (01) ==
PROVIDERS: PCP Internal Medicine; Visit Provider Internal Medicine
DX: I25.110 Atherosclerotic heart disease of native coronary artery with unstable angina pectoris (principal); I11.9 Hypertensive heart disease without heart failure; R06.09 Other forms of dyspnea; J44.9 Chronic obstructive pulmonary disease, unspecified; Z85.118 Personal history of other malignant neoplasm of bronchus and lung; Z87.891 Personal history of nicotine dependence; Z95.5 Presence of coronary angioplasty implant and graft; Z79.899 Other long term (current) drug therapy
CPT/HCPCS: 80048; 85025; 93458; 99152; C1725; C1760; C1769; J1200; J1644; J2250; J3010; Q9967

== ENCOUNTER 2024-04-18 12:51 | Observation (INO) | payer MEDICARE, SELFPAY ==
--- NOTE | 2024-04-18 12:52 | ECG_ITS ---
APPROVED REPORT Exam: Resting ECG HR:95 bpm ECG Measurements Heart Rate 95 AXES WV 181 P 48 QRSd 99 QRS 28 QT 353 T 66 QTc 406 Conclusion SINUS RHYTHM WITH OCCASIONAL VENTRICULAR PREMATURE COMPLEXES NONSPECIFIC ST & T-WAVE ABNORMALITY BORDERLINE ECG UNCONFIRMED REPORT ST depression lateral leads, isolated ST elevation in aVR Electronically signed by : DAVID BENDER, 04/19/2024 10:27:43
[2024-04-18 12:55] VITALS: BP 137/90; PULSE 80; RESP 18; TEMP 36.7; O2SAT 97; BMI 22.8
--- NOTE | 2024-04-18 12:56 | PC.NURSE ---
DR MAKI AT BEDSIDE
--- NOTE | 2024-04-18 12:59 | XR_ITS ---
FINAL REPORT CLINICAL HISTORY: chest pain, shortness of breath COMPARISON: 09/22/2023 FINDINGS: There is elevation of the left hemidiaphragm. The heart size is normal. Multiple median sternotomy wires are present. There is no focal infiltrate or edema. Chronic changes are noted at the right lung base. There are no pleural effusions. There is no pneumothorax. There is no osseous abnormality. IMPRESSION: No acute cardiopulmonary process Reviewed, Interpreted and Dictated by Lennox Boudreaux MD Transcribed by Jeri Sheppard Authenticated and . [facility]
--- NOTE | 2024-04-18 13:00 | PC.NURSE ---
EKG sent to Dr. Gaffney for Dr. Rodgers.
--- NOTE | 2024-04-18 13:00 | HMH.EDGENADL ---
Discharge Plan Disposition Patient Disposition: Home, Self-Care Chief Complaint: Chest Pain Clinical Impressions Clinical Impression: ST elevation IA (STEMI), Stable angina Discharge ED Provider: Candelario Perez General Adult HPI <Jay Rodgers MD - Last Filed: 04/18/24 15:57> General Chief complaint: Chest Pain Stated complaint: Chest Pain Time Seen by Provider: 04/18/24 12:55 History of Present Illness HPI narrative: Patient presents for evaluation of substernal chest pain described as pressure, acute in onset and nonexertional starting approximately 1 hour prior to arrival. Previous therapies included nitroglycerin with improvement of symptoms. Patient has known history of CAD with stenting, reports symptoms are similar to anginal pain he has had in the past. Pain is improving at this time. He was in his normal state of health prior to onset of symptoms. No associated pleuritic component no orthopnea, no dyspnea, no palpitations. No leg pain or leg swelling. Please note that above description of symptoms, in this electronic medical record under categorization of recalled from ER triage doctor by RN are reflective of an initial nursing assessment, however, is not reflective of my full history and physical exam that was personally taken and clarified. Consequentially, this preceding description of symptoms, which may include the patient's categorized chief complaint in the EMR, do not reflect my personal clinical impression, and the ultimate description of history of present illness and patient stated complaints should be deferred to this section of the note. Unless stated otherwise or congruent with this section of the note, additional signs, symptoms, or incongruence should be interpreted as inaccurate with my clinical impression. Related Data Home Medications ?Medication ?Instructions ?Recorded ?Confirmed aspirin 81 mg tablet,delayed 81 mg PO DAILY 01/21/22 04/18/24 release albuterol sulfate 90 mcg/actuation 2 inh inhalation Q6HP PRN 09/21/23 04/18/24 aerosol inhaler shortness of breath or wheezing azelastine 137 mcg (0.1 %) nasal 1 spray intranasal Q6HP PRN 09/21/23 04/18/24 spray allergy symptoms clopidogrel 75 mg tablet 75 mg PO DAILY 09/21/23 04/18/24 spironolactone 25 mg tablet 25 mg PO TUTHSA 09/21/23 04/18/24 tiotropium 2.5 mcg-olodaterol 2.5 2 inh inhalation ONCE 03/06/24 04/18/24 mcg/actuation mist for inhalation (Stiolto Respimat) furosemide 40 mg tablet 40 mg PO DAILY 04/18/24 04/18/24 Previous Rx's ?Medication ?Instructions ?Recorded denosumab 60 mg/mL subcutaneous 60 mg SQ [id number] Osteoporosis #1 07/06/23 syringe (Prolia) mL metoprolol succinate 25 mg 25 mg PO DAILY #90 tabs 02/14/24 tablet,extended release 24 hr nitroglycerin 0.4 mg sublingual 0.4 mg sublingual Q5MINP PRN chest 02/22/24 tablet pain #30 tabs atorvastatin 80 mg tablet 80 mg PO HS #90 tabs 03/13/24 ranolazine 1,000 mg 1,000 mg PO BID 30 days #180 tabs 03/13/24 tablet,extended release,12 hr Allergies Allergy/AdvReac Type Severity Reaction Status Date / Time No Known Allergies Allergy Verified 04/11/24 14:39 REPLACED BY [facility] <Jay Rodgers MD - Last Filed: 04/18/24 15:57> REPLACED BY [facility] Disclaimer: The information contained in this section may have been updated after the patient was seen, as this information can be updated by other users. Medical History Age related osteoporosis CAD (coronary artery disease) Claudication of right lower extremity Dizziness Dyspnea on exertion HHD (hypertensive heart disease) History of smoking 30 or more pack years Lung cancer PAD (peripheral artery disease) Pain in right leg Surgical History History of brachytherapy Circumflex artery- DEC 2021. History of open heart surgery Status post double vessel coronary artery bypass Family History Other Family history of acute congestive heart failure Family history of acute heart failure Family history of hyperlipidemia Family history of hypertension Social History (Updated 04/18/24 @ 17:12 by Paulette Desai RN) Smoking Status: Unknown if ever smoked second hand exposure: No alcohol intake: current alcohol intake frequency: a few times a week substance use type: denies use current occupational status: retired Travel in the last 8 weeks: None household members: spouse housing: house current occupational exposures/hazards: No caffeine: Yes Have you lived/traveled outside [place] in past 30 days?: No Contact w/someone who lives/traveled outside [place] past 30 days?: No Exposure to someone with infectious disease in past 14 days?: No Do you have a fever (greater than 100.4 F or 38 C)?: No Have you tested positive for COVID-19: No Exposed to someone with COVID-19 in past 14 days?: No Do you have a sore throat?: No Do you have a cough?: No Do you have any weakness?: No Are you experiencing any nausea/vomitting?: No Do you have any diarrhea?: No Are you experiencing any unusual bleeding?: No Do you have any muscle aches/pain?: No Do you have any abdominal pain?: No Are you experiencing loss of taste or smell?: No Other Medical History Have you received the Flu Vaccine for this season: No Have you received the Pneumonia Vaccine: Yes <Jay Rodgers MD - Last Filed: 04/18/24 15:57> ROS Obtained: Yes other As per HPI Physical Exam <Jay Rodgers MD - Last Filed: 04/18/24 15:57> General General appearance: alert and in no apparent distress Head Head exam: atraumatic and normocephalic Eye Eye exam: Present normal appearance Neck Neck exam: Present normal inspection Chest Chest inspection: Present normal inspection and symmetric chest wall rise Respiratory Respiratory exam: Present normal lung sounds bilaterally; Absent respiratory distress Cardiovascular Cardiovascular exam: Present regular rate and normal rhythm Abdominal Exam Abdominal exam: Present soft Neurological Exam Neurological exam: Present alert and oriented X3 Psychiatric Psychiatric exam: Present normal affect and normal mood Skin Skin exam: Present warm and dry Medical Decision Making <Jay Rodgers MD - Last Filed: 04/18/24 15:57> Medical Records Medical records reviewed: Yes I reviewed the patient's medical records. Screening: Per USPSTF and CDC recommendations, given the prevalence of disease in our region, it is our hospital?s policy to screen for HIV and viral Hepatitis for all patients aged 18 and over and those with ongoing risk factors. [place]aveen Inquiry Pt receiving controlled substance: No Vital Signs: 04/18/24 12:55 04/18/24 13:30 04/18/24 17:16 Temperature 98.0 F 98.0 F Temperature Source Oral Pulse Rate 78 78 Pulse Rate [Apical] 80 Respiratory Rate 18 17 18 Blood Pressure 123/73 123/80 Blood Pressure [Left Arm] 137/90 Blood Pressure Mean [Left Arm] 105 Blood Pressure Source Automatic Cuff Blood Pressure Source [Left Arm] Automatic Cuff Blood Pressure Position Supine Blood Pressure Position [Left Arm] Sitting 02 Sat by Pulse Oximetry 97 96 Oxygen Delivery Method Room Air Room Air Room Air 04/18/24 17:19 Temperature Temperature Source Pulse Rate 70 Pulse Rate [Apical] Respiratory Rate Blood Pressure Blood Pressure [Left Arm] Blood Pressure Mean [Left Arm] Blood Pressure Source Blood Pressure Source [Left Arm] Blood Pressure Position Blood Pressure Position [Left Arm] 02 Sat by Pulse Oximetry Oxygen Delivery Method Lab Data Lab Results 04/18/24 13:03: WBC 8.4, RBC 4.52 L, Hgb 13.6 L, Hct 41.7 L, MCV 92.3, MCH 30.1, MCHC 32.6, RDW 14.2, Plt Count 196, MPV 10.1, Neut % (Auto) 65.1, Lymph % (Auto) 21.6, Pitt % (Auto) 9.1, Eos % (Auto) 1.9, Baso % (Auto) 0.8, Neut # (Auto) 5.5, Lymph # (Auto) 1.8, Pitt # (Auto) 0.8, Eos # (Auto) 0.2, Baso # (Auto) 0.1, APTT 26.4 L, D-Dimer 0.36, Sodium 139, Potassium 4.1, Chloride 106, Carbon Dioxide 24, Anion Gap 13.1, BUN 15, Creatinine 1.20, Estimated Creat Clear 50, Estimated GFR 59, Est GFR ( Amer) 71, Glucose 87, Calcium 10.2, Total Bilirubin 0.6, AST 26, ALT 19, Alkaline Phosphatase 103, Troponin I 0.15 H, NT-Pro-B Natriuret Pep 2070 H, Total Protein 7.0, Albumin 4.4, Globulin 2.6, Albumin/Globulin Ratio 1.7, HCV Ab CIRILO w/Rflx PCR Qn Negative, HIV Ag/Ab Combo Qual Negative 04/18/24 15:42: Troponin I 0.17 H 04/18/24 13:03 04/18/24 13:03 Orders (Tests/Meds): ED MEDICATIONS Generic Name Dose Route Start Last Admin Trade Name Freq PRN Reason Stop Dose Admin Furosemide 40 mg 04/18/24 16:59 04/18/24 17:23 Furosemide 40mg/4ml Vial IV 04/18/24 17:00 40 mg ONCE ONE Administration Heparin Sodium/Dextrose 500 mls @ 20 mls/hr 04/18/24 17:15 Heparin 25,000 Units In D5w 500ml Premix IV 05/18/24 17:14 .Q25H AMAN 1,000 UNITS/HR Miscellaneous 1 each 04/18/24 17:00 Heparin Drip Consult NOTAPPLIC 05/18/24 16:59 CONSULT PHARMACY AMAN Discontinued Medications Generic Name Dose Route Start Last Admin Trade Name Freq PRN Reason Stop Dose Admin Aspirin 325 mg 04/18/24 13:00 04/18/24 13:06 Aspirin 325mg Tablet PO 04/18/24 13:01 325 mg ONCE ONE Administration Heparin Sodium (Porcine) 4,000 unit 04/18/24 16:54 Heparin Sodium 5,000 Unit/Ml Vial IV 04/18/24 16:55 ONCE ONE ORDERS Category Date Time Status XR chest portable Stat Exams 04/18/24 12:59 Completed BNP [NT Pro Brain Natriuretic Pep.] Stat Lab 04/18/24 13:03 Completed CBC w/Auto Diff [Complete Blood Count Auto Diff] Stat Lab 04/18/24 13:03 Completed CMP [Comprehensive Metabolic Panel] Stat Lab 04/18/24 13:03 Completed D-Dimer Stat Lab 04/18/24 13:03 Completed HIV Combo Stat Lab 04/18/24 13:03 Completed Hepatitis C Ab Qual. W/ RFX Stat Lab 04/18/24 13:03 Completed PTT Heparin (inpatient only) Stat Lab 04/18/24 13:03 Completed Troponin I Q3H Lab 04/18/24 13:03 Completed Troponin I Q3H Lab 04/18/24 15:42 Completed HEART Score History (anamnesis): Highly suspicious ECG: Significant ST-deviation Age: >65 years Risk factors: Atherosclerosis history Troponin: 1-3x normal limit HEART Score: 9 Medical Decision Narrative: Patient with history and exam per above presenting for evaluation of chest pain Diagnoses considered include ACS, PE, dissection, among others. Patient's initial EKG concerning to me for TEDDY with ischemic changes in inferior lateral leads, with reciprocal changes. Cardiology was contacted after EKG was obtained. After discussion of clinical case, including symptoms and history and evaluation of EKG by cardiology, recommendation was to trend troponins and workup to include evaluation for pulmonary embolism. Laboratory analysis at this time reveals D-dimer within normal limits, initial troponin 0.15, BNP 2070, other labs pending at this time. At this time care was transferred to incoming physician. <Candelario Perez MD - Last Filed: 04/18/24 17:50> Vital Signs: 04/18/24 12:55 04/18/24 13:30 04/18/24 17:16 Temperature 98.0 F 98.0 F Temperature Source Oral Pulse Rate 78 78 Pulse Rate [Apical] 80 Respiratory Rate 18 17 18 Blood Pressure 123/73 123/80 Blood Pressure [Left Arm] 137/90 Blood Pressure Mean [Left Arm] 105 Blood Pressure Source Automatic Cuff Blood Pressure Source [Left Arm] Automatic Cuff Blood Pressure Position Supine Blood Pressure Position [Left Arm] Sitting 02 Sat by Pulse Oximetry 97 96 Oxygen Delivery Method Room Air Room Air Room Air 04/18/24 17:19 Temperature Temperature Source Pulse Rate 70 Pulse Rate [Apical] Respiratory Rate Blood Pressure Blood Pressure [Left Arm] Blood Pressure Mean [Left Arm] Blood Pressure Source Blood Pressure Source [Left Arm] Blood Pressure Position Blood Pressure Position [Left Arm] 02 Sat by Pulse Oximetry Oxygen Delivery Method Lab Data Lab Results 04/18/24 13:03: WBC 8.4, RBC 4.52 L, Hgb 13.6 L, Hct 41.7 L, MCV 92.3, MCH 30.1, MCHC 32.6, RDW 14.2, Plt Count 196, MPV 10.1, Neut % (Auto) 65.1, Lymph % (Auto) 21.6, Pitt % (Auto) 9.1, Eos % (Auto) 1.9, Baso % (Auto) 0.8, Neut # (Auto) 5.5, Lymph # (Auto) 1.8, Pitt # (Auto) 0.8, Eos # (Auto) 0.2, Baso # (Auto) 0.1, APTT 26.4 L, D-Dimer 0.36, Sodium 139, Potassium 4.1, Chloride 106, Carbon Dioxide 24, Anion Gap 13.1, BUN 15, Creatinine 1.20, Estimated Creat Clear 50, Estimated GFR 59, Est GFR ( Amer) 71, Glucose 87, Calcium 10.2, Total Bilirubin 0.6, AST 26, ALT 19, Alkaline Phosphatase 103, Troponin I 0.15 H, NT-Pro-B Natriuret Pep 2070 H, Total Protein 7.0, Albumin 4.4, Globulin 2.6, Albumin/Globulin Ratio 1.7, HCV Ab CIRILO w/Rflx PCR Qn Negative, HIV Ag/Ab Combo Qual Negative 04/18/24 15:42: Troponin I 0.17 H Orders (Tests/Meds): ED MEDICATIONS Generic Name Dose Route Start Last Admin Trade Name Freq PRN Reason Stop Dose Admin Furosemide 40 mg 04/18/24 16:59 04/18/24 17:23 Furosemide 40mg/4ml Vial IV 04/18/24 17:00 40 mg ONCE ONE Administration Heparin Sodium/Dextrose 500 mls @ 20 mls/hr 04/18/24 17:15 Heparin 25,000 Units In D5w 500ml Premix IV 05/18/24 17:14 .Q25H AMAN 1,000 UNITS/HR Miscellaneous 1 each 04/18/24 17:00 Heparin Drip Consult NOTAPPLIC 05/18/24 16:59 CONSULT PHARMACY AMAN Discontinued Medications Generic Name Dose Route Start Last Admin Trade Name Freq PRN Reason Stop Dose Admin Aspirin 325 mg 04/18/24 13:00 04/18/24 13:06 Aspirin 325mg Tablet PO 04/18/24 13:01 325 mg ONCE ONE Administration Heparin Sodium (Porcine) 4,000 unit 04/18/24 16:54 Heparin Sodium 5,000 Unit/Ml Vial IV 04/18/24 16:55 ONCE ONE ORDERS Category Date Time Status XR chest portable Stat Exams 04/18/24 12:59 Completed BNP [NT Pro Brain Natriuretic Pep.] Stat Lab 04/18/24 13:03 Completed CBC w/Auto Diff [Complete Blood Count Auto Diff] Stat Lab 04/18/24 13:03 Completed CMP [Comprehensive Metabolic Panel] Stat Lab 04/18/24 13:03 Completed D-Dimer Stat Lab 04/18/24 13:03 Completed HIV Combo Stat Lab 04/18/24 13:03 Completed Hepatitis C Ab Qual. W/ RFX Stat Lab 04/18/24 13:03 Completed PTT Heparin (inpatient only) Stat Lab 04/18/24 13:03 Completed Troponin I Q3H Lab 04/18/24 13:03 Completed Troponin I Q3H Lab 04/18/24 15:42 Completed HEART Score HEART Score: 9 Medical Decision Narrative: Patient with history and exam per above presenting for evaluation of chest pain Diagnoses considered include ACS, PE, dissection, among others. Patient's initial EKG concerning to me for TEDDY with ischemic changes in inferior lateral leads, with reciprocal changes. Cardiology was contacted after EKG was obtained. After discussion of clinical case, including symptoms and history and evaluation of EKG by cardiology, recommendation was to trend troponins and workup to include evaluation for pulmonary embolism. Laboratory analysis at this time reveals D-dimer within normal limits, initial troponin 0.15, BNP 2070, other labs pending at this time. At this time care was transferred to incoming physician. Ana: I assumed primary responsibility for this patient after signout from previous physician. Patient in no acute distress with no acute complaints on my exam. Hemodynamically stable, nontachycardic. Independent interpretation of workup with nonactionable CBC or coags, but uptrending delta troponin and BNP elevation at 2100. Initial EKG independently interpreted. Patient does have aVR and lead III elevations with depressions in lateral leads concerning for acute ischemia. Patient heparinized, cardiology consulted. Interactive discussion had, patient to be admitted, but not emergently catheterized. Because patient high risk for clinical decompensation, deemed appropriate for inpatient admission. Results were relayed to patient who voiced understanding and patient was agreeable to inpatient admission and management. Patient was admitted to the hospital for further definitive management. Critical Care <Jay Rodgers MD - Last Filed: 04/18/24 15:57> Critical Care Time Critical Care Time: No <Candelario Perez MD - Last Filed: 04/18/24 17:50> Critical Care Time Critical Care Time: Yes (cardiac) Attestation: On 04/18/24, the high probability of a clinically significant, sudden or life threatening deterioration of the following system(s) required my full and direct attention, intervention and personal management. The time I documented below is in addition to time spent performing reported procedures but includes the following listed in this critical care notation. Total Time Total Critical Care Time: 30
[2024-04-18] MEDS: ASPIRIN 325MG TABLET 325 MG PO (13:06)
[2024-04-18 13:12] LABS: Basophils # 0.1 K/mm3 (0-0.2); Basophils % 0.8 % (0.1-2.0); Eosinophils # 0.2 K/mm3 (0.0-0.4); Eosinophils % 1.9 % (0.1-12.0); Hematocrit 41.7 % (42.0-52.0); Hemoglobin 13.6 g/dL (14.1-18.0); Lymphocytes # 1.8 K/mm3 (0.7-4.5); Lymphocytes % 21.6 % (10-50); Mean Corpuscular HGB Conc 32.6 g/dL (31.8-35.4); Mean Corpuscular Hemoglobin 30.1 pg (27.0-31.2); Mean Corpuscular Volume 92.3 fl (80-94); Mean Platelet Volume 10.1 fl (7.4-10.4); Monocytes # 0.8 K/mm3 (0.1-1.0); Monocytes % 9.1 % (1.7-9.3); Neutrophils # 5.5 K/mm3 (1.8-7.8); Neutrophils % 65.1 % (37.0-80.0); Platelet Count 196 K/mm3 (142-424); Red Blood Count 4.52 M/mm3 (4.60-6.20); Red Cell Distribution Width 14.2 % (11.5-17.5); White Blood Count 8.4 K/mm3 (4.8-10.8)
--- NOTE | 2024-04-18 13:22 | ECG_ITS ---
APPROVED REPORT Exam: Resting ECG HR:81 bpm ECG Measurements Heart Rate 81 AXES MI 176 P 33 QRSd 102 QRS 18 QT 390 T 38 QTc 427 Conclusion SINUS RHYTHM LOW QRS VOLTAGE IN PRECORDIAL LEADS [QRS DEFLECTION < 1.0 mV IN CHEST LEADS] MODERATE ST DEPRESSION [0.05+ mV ST DEPRESSION] ABNORMAL ECG Electronically signed by : DAVID BENDER, 04/19/2024 10:26:29
[2024-04-18 13:30] VITALS: BP 123/73; PULSE 78; RESP 17; O2SAT 96
[2024-04-18 13:37] LABS: Albumin Level 4.4 g/dl (3.5-5.0); Chloride 106 mmol/L (98-107); Potassium 4.1 mmoL/L (3.5-5.1); Sodium 139 mmol/L (136-145)
[2024-04-18 13:40] LABS: Alanine Aminotransferase 19 U/L (12-78); Albumin/Globulin Ratio 1.7 (1.1-1.8); Alkaline Phosphatase 103 U/L (38-126); Anion Gap 13.1 mEq/L (5-15); Aspartate Amino Transferase 26 U/L (17-59); Bilirubin,Total 0.6 mg/dl (0.2-1.3); Blood Urea Nitrogen 15 mg/dl (9-20); Calcium 10.2 mg/dl (8.4-10.2); Carbon Dioxide 24 mmol/L (22.0-30.0); Creatinine Clearance Estimated 50 mL/min (50-200); Estimated Glomerular Filt Rate 59 ml/min (>60); GFR (African American) 71 ML/MIN (>60); Globulin 2.6 g/dL (1.3-3.2); Glucose 87 mg/dl (74-100)
[2024-04-18 13:49] LABS: NT Pro Brain Natriuretic Pep. 2070 pg/mL (0-450)
[2024-04-18 13:51] LABS: Troponin I 0.15 ng/ml (0.00-0.034)
[2024-04-18 14:05] LABS: D-Dimer 0.36 ug/mL (0.0-0.5)
[2024-04-18 14:21] LABS: HIV Combo NEGATIVE (Negative)
[2024-04-18 14:29] LABS: Hepatitis C Ab Qual. W/ RFX NEGATIVE (Negative)
[2024-04-18 16:30] LABS: Troponin I 0.17 ng/ml (0.00-0.034)
--- NOTE | 2024-04-18 17:00 | PC.NURSE ---
DR PASTOR SPEAKING WITH DR BENNETT
--- NOTE | 2024-04-18 17:02 | PC.NURSE ---
BARKER PEELER NOTIFIED OF ADMISSION
[2024-04-18 17:16] VITALS: BP 123/80; PULSE 78; RESP 18; TEMP 36.7; O2SAT 97
[2024-04-18 17:19] VITALS: PULSE 70
[2024-04-18 17:20] LABS: PTT Heparin (inpatient only) 26.4 Seconds (50-75)
--- NOTE | 2024-04-18 17:20 | PC.NURSE ---
PTT 26.4
[2024-04-18] MEDS: FUROSEMIDE 40MG/4ML VIAL 40 MG IV (17:23)
[2024-04-18 18:00] VITALS: BP 133/84; PULSE 81; RESP 17; TEMP 36.5; O2SAT 98; BMI 21.6
[2024-04-18] MEDS: HEPARIN SODIUM,PORCINE/D5W 500 ML 20 UNIT IV (18:18)
[2024-04-18] MEDS: HEPARIN SODIUM 5,000 UNIT/ML VIAL 4000 UNIT IV (18:18)
--- NOTE | 2024-04-18 19:05 | P.HP_ITS ---
<Statement entered by Sandeep Peace MD - 04/22/24 19:49> Personally evaluated patient and agree with plan of care as outlined by the CLERICAL OFFICE. History of Present Illness *Admission Date: 04/18/24 *Reason for visit:: Chest pain *History of present illness: This is a 78-year-old male who has a past medical history significant for lung cancer status postradiation, coronary artery disease, peripheral artery disease, hypertension, prior open heart surgery with a vessel failure prior smoking history (quit in 2013) who presents with chief complaint of chest pain. Due to patient's symptoms, he presented to the emergency room for evaluation. While in the emergency room, patient's troponin was elevated and there were EKG changes consistent with STEMI in the inferior. Case was discussed with rn interventional who recommended heparin drip. Due to these recommendations and findings, patient is being admitted for further management. During my evaluation of the patient, patient states that he started having centralized chest pain around 1300 hrs. He states it occurred while he was at rest and progressively got worse. Initially, patient thought he was experiencing indigestion. Patient states he took some Tums and there was no relief. He was scheduled for cardiac rehab today and there he took some nitro and it improved his pain somewhat. His blood pressure was somewhat low, so they recommended patient present to the emergency room. It is worth mentioning that patient has had recent cath approximately 3 weeks ago where he did not receive any stents. Upon further questioning, patient is status post coronary artery bypass graft which both grafts failed. Patient is status post radiation from lung cancer and he voices his complications with his heart did not start until after he received radiation. He is currently denying any chest pain, lightheadedness, dizziness, PND, orthopnea, lower extremity swelling, shortness of breath, dyspnea, nausea, vomiting, fever, chills, rigors, or diarrhea. Chest x-ray was negative for any acute cardiopulmonary process. Additional pertinent values obtained include a red blood cell count of 4.52, hemoglobin 13.12, hematocrit 41.7, troponin 0.17, and BNP of 2070. [facility] Disclaimer: The information contained in this section may have been updated after the patient was seen, as this information can be updated by other users. Medical History Age related osteoporosis CAD (coronary artery disease) Claudication of right lower extremity Dizziness Dyspnea on exertion HHD (hypertensive heart disease) History of smoking 30 or more pack years Lung cancer PAD (peripheral artery disease) Pain in right leg Surgical History History of brachytherapy Circumflex artery- DEC 2021. History of open heart surgery Status post double vessel coronary artery bypass Family History Other Family history of acute congestive heart failure Family history of acute heart failure Family history of hyperlipidemia Family history of hypertension Social History (Updated 04/18/24 @ 17:12 by Paulette Desai RN) Smoking Status: Unknown if ever smoked second hand exposure: No alcohol intake: current alcohol intake frequency: a few times a week substance use type: denies use current occupational status: retired Travel in the last 8 weeks: None household members: spouse housing: house current occupational exposures/hazards: No caffeine: Yes Have you lived/traveled outside US in past 30 days?: No Contact w/someone who lives/traveled outside US past 30 days?: No Exposure to someone with infectious disease in past 14 days?: No Do you have a fever (greater than 100.4 F or 38 C)?: No Have you tested positive for COVID-19: No Exposed to someone with COVID-19 in past 14 days?: No Do you have a sore throat?: No Do you have a cough?: No Do you have any weakness?: No Are you experiencing any nausea/vomitting?: No Do you have any diarrhea?: No Are you experiencing any unusual bleeding?: No Do you have any muscle aches/pain?: No Do you have any abdominal pain?: No Are you experiencing loss of taste or smell?: No Other Medical History Have you received the Flu Vaccine for this season: Yes Have you received the Pneumonia Vaccine: Yes Review of Systems Review of Systems Review of systems:: pertinent systems reviewed and negative unless documented below Constitutional Constitutional: Reports system reviewed and no additional complaints, except as documented Eyes Eyes: Reports system reviewed and no additional complaints, except as documented ENT Ears, Nose, Mouth, and Throat: Reports system reviewed and no additional complaints, except as documented *Cardiovascular Cardiovascular: Reports chest pain at rest *Respiratory Respiratory: Reports system reviewed and no additional complaints, except as documented *Gastrointestinal Gastrointestinal: Reports system reviewed and no additional complaints, except as documented *Genitourinary Genitourinary: Reports system reviewed and no additional complaints, except as documented *Musculoskeletal Musculoskeletal: Reports system reviewed and no additional complaints, except as documented Integumentary/Breasts Skin/Breast: Reports system reviewed and no additional complaints, except as documented *Neurologic Neurologic: Reports system reviewed and no additional complaints, except as documented Psychiatric Psychiatric: Reports system reviewed and no additional complaints, except as documented Endocrine Endocrine: Reports system reviewed and no additional complaints, except as documented Hematologic/Lymphatic Hematologic/Lymphatic: Reports system reviewed and no additional complaints, except as documented Allergic/Immunologic Allergic/Immunologic: Reports system reviewed and no additional complaints, except as documented Meds Home Medications and Allergies Home Medications ?Medication ?Instructions ?Recorded ?Confirmed ?Type aspirin 81 mg tablet,delayed 81 mg PO DAILY 01/21/22 04/18/24 History release denosumab 60 mg/mL subcutaneous 60 mg SQ [id number] Osteoporosis #1 07/06/23 04/18/24 Rx syringe (Prolia) mL albuterol sulfate 90 mcg/actuation 2 inh inhalation Q6HP PRN 09/21/23 04/18/24 History aerosol inhaler shortness of breath or wheezing azelastine 137 mcg (0.1 %) nasal 1 spray intranasal Q6HP PRN 09/21/23 04/18/24 History spray allergy symptoms clopidogrel 75 mg tablet 75 mg PO DAILY 09/21/23 04/18/24 History spironolactone 25 mg tablet 25 mg PO TUTHSA 09/21/23 04/18/24 History metoprolol succinate 25 mg 25 mg PO DAILY #90 tabs 02/14/24 04/18/24 Rx tablet,extended release 24 hr nitroglycerin 0.4 mg sublingual 0.4 mg sublingual Q5MINP PRN chest 02/22/24 04/18/24 Rx tablet pain #30 tabs tiotropium 2.5 mcg-olodaterol 2.5 2 inh inhalation ONCE 03/06/24 04/18/24 History mcg/actuation mist for inhalation (Stiolto Respimat) atorvastatin 80 mg tablet 80 mg PO HS #90 tabs 03/13/24 04/18/24 Rx ranolazine 1,000 mg 1,000 mg PO BID 30 days #180 tabs 03/13/24 04/18/24 Rx tablet,extended release,12 hr aspirin 81 mg capsule 81 mg PO DAILY 04/18/24 04/18/24 History furosemide 40 mg tablet 40 mg PO DAILY 04/18/24 04/18/24 History New Prescriptions to Start Prescriptions: Allergies Allergy/AdvReac Type Severity Reaction Status Date / Time No Known Allergies Allergy Verified 04/11/24 14:39 Exam Data for Last 24 hours Vital signs and Labs for Last 24 Hours: Temp Pulse Resp BP Pulse Ox O2 Del Method 97.7 F 81 17 133/84 98 Room Air 04/18/24 18:00 04/18/24 18:00 04/18/24 18:00 04/18/24 18:00 04/18/24 18:00 04/18/24 18:48 Laboratory Results - last 24 hr 04/18/24 13:03: WBC 8.4, RBC 4.52 L, Hgb 13.6 L, Hct 41.7 L, MCV 92.3, MCH 30.1, MCHC 32.6, RDW 14.2, Plt Count 196, MPV 10.1, Neut % (Auto) 65.1, Lymph % (Auto) 21.6, [place] % (Auto) 9.1, Eos % (Auto) 1.9, Baso % (Auto) 0.8, Neut # (Auto) 5.5, Lymph # (Auto) 1.8, [place] # (Auto) 0.8, Eos # (Auto) 0.2, Baso # (Auto) 0.1, APTT 26.4 L, D-Dimer 0.36, Sodium 139, Potassium 4.1, Chloride 106, Carbon Dioxide 24, Anion Gap 13.1, BUN 15, Creatinine 1.20, Estimated Creat Clear 50, Estimated GFR 59, Est GFR ( Amer) 71, Glucose 87, Calcium 10.2, Total Bilirubin 0.6, AST 26, ALT 19, Alkaline Phosphatase 103, Troponin I 0.15 H, NT-Pro-B Natriuret Pep 2070 H, Total Protein 7.0, Albumin 4.4, Globulin 2.6, Albumin/Globulin Ratio 1.7, HCV Ab CIRILO w/Rflx PCR Qn Negative, HIV Ag/Ab Combo Qual Negative 04/18/24 15:42: Troponin I 0.17 H I & O for Last 24 hours: Intake & Output 04/15/24 04/16/24 04/17/24 04/18/24 23:59 23:59 23:59 23:59 Output Total 0 / 0 Balance 0 / 0 Weight 64.552 kg Constitutional Constitutional: no acute distress *Routine HEENT Exam Head: Present normocephalic and atraumatic Eye: Present EOMI and PERRL ENT: Present mucous membranes moist *Routine Neck Exam Neck: Present supple and full ROM *Routine Respiratory Exam Respiratory: Present normal respiratory effort, able to speak in complete sentences and symmetric chest movement *Routine Cardiovascular Exam Cardiovascular: Present RRR, Normal S1 and Normal S2 *Routine Abdominal Exam Abdominal: Present soft and normoactive bowel sounds *Routine Rectal Exam Rectal:: deferred *Routine Genitalia Exam Genitalia:: deferred *Routine Extremities Exam Extremities: Present full ROM, pulses intact and normal capillary refill Routine Back/Spine/Pelvis Exam Back/Spine: Present full ROM *Routine Skin Exam Skin: Present intact, dry and warm *Routine Neurological Exam Neurological: Present alert, oriented X3 and CN II-XII intact Routine Psychiatric Exam Psychiatric: Present normal affect, normal thought process, cooperative, good insight and good judgment H&P: Result Impressions This is a 78-year-old male who has known coronary artery disease which may have been related to radiation who presents with a chief complaint of chest pain. Patient did have some elevation in his troponin and was diagnosed with NSTEMI and placed on heparin drip Assessment and Plan *Assessment and plan (1) Non-ST elevation NM (NSTEMI): Status: Acute Category: Medical Code(s): I21.4 - Non-ST elevation (NSTEMI) myocardial infarction (2) Chest pain: Status: Acute Qualifiers: Chest pain type: unspecified Qualified Code(s): R07.9 - Chest pain, unspecified Category: Medical Code(s): R07.9 - Chest pain, unspecified (3) Angina at rest: Status: Acute Category: Medical Code(s): I20.89 - Other forms of angina pectoris Plan Assessment: NSTEMI/chest pain/angina -Will continue heparin drip further direction of cardiology -Make patient n.p.o. after midnight -Refrigerating Engineer already been consulted -Will trend troponins -Will place patient on telemetry -Will continue metoprolol -Will continue patient's Plavix Plan: Admit patient to the MedSur unit on telemetry Activity as tolerated Vital signs every 4 hours N.p.o. after midnight CBC/BMP daily Restart patient's statin Hold Lasix for now 5 mg Benge p.o. every 4 hours for moderate pain 2 mg morphine IV push every 4 hours. Severe pain 4 mg Zofran IV push. Hours. Nausea vomit Full code I have discussed this case with attending physician Dr. Peace and a look forward to more input
[2024-04-18 20:00] VITALS: BP 108/59; PULSE 76; PULSE 80; RESP 18; TEMP 36.6; O2SAT 97
[2024-04-18] MEDS: ATORVASTATIN 40MG TABLET 80 MG PO (20:00)
[2024-04-18] MEDS: METOPROLOL SUCCINATE XL 25MG TABLET 25 MG PO (20:00)
[2024-04-18] MEDS: PATIENT'S OWN HOME MEDICATION (Ranolazine 1,000 mg tablet extended release 12 hr) 1000 EACH PO (20:01)
[2024-04-19] VITALS: BP 100/60; PULSE 80; PULSE 84; RESP 18; TEMP 36.9; O2SAT 95
[2024-04-19 04:00] VITALS: BP 97/55; PULSE 80; PULSE 82; RESP 16; TEMP 36.8; O2SAT 95; BMI 22.2
[2024-04-19 05:01] LABS: PTT Heparin (inpatient only) 48.7 Seconds (50-75)
--- NOTE | 2024-04-19 05:09 | PC.NURSE ---
Addendum entered by Brianda Chris RN 04/19/24 05:12: NPO started at midnight. Original Note: V/s, ox4. Pt tolerating heparin drip well. No acute events to report, plan of care ongoing.
[2024-04-19] MEDS: HEPARIN SODIUM,PORCINE/D5W 500 ML 22 UNIT IV (05:51)
[2024-04-19] MEDS: HEPARIN SODIUM 5,000 UNIT/ML VIAL 3000 UNIT IV (05:51)
[2024-04-19 06:49] LABS: Alanine Aminotransferase 17 U/L (12-78); Albumin Level 3.7 g/dl (3.5-5.0); Albumin/Globulin Ratio 1.4 (1.1-1.8); Alkaline Phosphatase 90 U/L (38-126); Anion Gap 9.7 mEq/L (5-15); Aspartate Amino Transferase 23 U/L (17-59); Bilirubin,Total 0.6 mg/dl (0.2-1.3); Blood Urea Nitrogen 15 mg/dl (9-20); Calcium 10.4 mg/dl (8.4-10.2); Carbon Dioxide 28 mmol/L (22.0-30.0); Chloride 101 mmol/L (98-107); Creatinine Clearance Estimated 46 mL/min (50-200); Estimated Glomerular Filt Rate 54 ml/min (>60); GFR (African American) 65 ML/MIN (>60); Globulin 2.6 g/dL (1.3-3.2); Glucose 101 mg/dl (74-100); Potassium 3.7 mmoL/L (3.5-5.1); Sodium 135 mmol/L (136-145); Total Protein,Serum 6.3 g/dl (6.3-8.2)
--- NOTE | 2024-04-19 07:36 | HMH.PHAHEP ---
[facility] Pharmacy Heparin Dosing Demographic Data Admission date:: 04/18/24 Date: 04/19/24 Time: 07:36 Allergies Allergy/AdvReac Type Severity Reaction Status Date / Time No Known Allergies Allergy Verified 04/11/24 14:39 Height: 1.73 m Weight: 66.7 kg Indication Medication therapy:: Heparin Current Active Problems (Updated 04/19/24 @ 10:02 by Noris Johnston APRN) HTN (hypertension) (Acute) Angina at rest (Acute) Chest pain (Acute) Stable angina (Acute) ST elevation MS (STEMI) (Acute) Non-ST elevation MS (NSTEMI) (Acute) CAD (coronary artery disease) (Chronic) CVA?: No Bleeding problem?: No Kidney disease?: No MS?: No Desired PTT range:: 50-75 seconds Labs Anticoagulation Lab Results:: 04/18/24 13:03 Hgb 13.6 L Hct 41.7 L Plt Count 196 Monitoring Dose Monitor 1: Date: 04/18/24 Time: 17:00 PTT Result:: 26.4 Infusion Rate:: 1,000 UNITS/HR Comment:: 4,000 UNIT BOLUS Dose Monitor 2: Date: 04/18/24 Time: 22:05 PTT Result:: 55.0 Infusion Rate:: 1,000 UNITS/HR Dose Monitor 3: Date: 04/19/24 Time: 04:05 PTT Result:: 48.7 Infusion Rate:: INCREASE RATE TO 1,100 UNITS/HR Comment:: 3,000 UNIT BOLUS Dose Monitor 4: Date: 04/19/24 Time: 11:30 Core Measures Is INR > or = 2 at discharge?: No Most Recent Labs:: Laboratory Results - last 24 hr 04/18/24 13:03: WBC 8.4, RBC 4.52 L, Hgb 13.6 L, Hct 41.7 L, MCV 92.3, MCH 30.1, MCHC 32.6, RDW 14.2, Plt Count 196, MPV 10.1, Neut % (Auto) 65.1, Lymph % (Auto) 21.6, [place] % (Auto) 9.1, Eos % (Auto) 1.9, Baso % (Auto) 0.8, Neut # (Auto) 5.5, Lymph # (Auto) 1.8, [place] # (Auto) 0.8, Eos # (Auto) 0.2, Baso # (Auto) 0.1, APTT 26.4 L, D-Dimer 0.36, Sodium 139, Potassium 4.1, Chloride 106, Carbon Dioxide 24, Anion Gap 13.1, BUN 15, Creatinine 1.20, Estimated Creat Clear 50, Estimated GFR 59, Est GFR ( Amer) 71, Glucose 87, Calcium 10.2, Total Bilirubin 0.6, AST 26, ALT 19, Alkaline Phosphatase 103, Troponin I 0.15 H, NT-Pro-B Natriuret Pep 2070 H, Total Protein 7.0, Albumin 4.4, Globulin 2.6, Albumin/Globulin Ratio 1.7, HCV Ab CIRILO w/Rflx PCR Qn Negative, HIV Ag/Ab Combo Qual Negative 04/18/24 15:42: Troponin I 0.17 H 04/18/24 22:05: APTT 55.0 04/19/24 04:04: APTT 48.7 L 04/19/24 05:48: Sodium 135 L, Potassium 3.7, Chloride 101, Carbon Dioxide 28, Anion Gap 9.7, BUN 15, Creatinine 1.30 H, Estimated Creat Clear 46, Estimated GFR 54 L, Est GFR ( Amer) 65, Glucose 101 H, Calcium 10.4 H, Total Bilirubin 0.6, AST 23, ALT 17, Alkaline Phosphatase 90, Total Protein 6.3, Albumin 3.7 D, Globulin 2.6, Albumin/Globulin Ratio 1.4 Were Heparin and Warfarin started on the same day?: No If not, why?: PATIENT DID NOT GO TO [facility] AND WAS DISCHARGED
[2024-04-19 08:00] VITALS: BP 100/56; PULSE 60; PULSE 73; RESP 16; TEMP 36.7; O2SAT 96
[2024-04-19] MEDS: PAT OWN MED ***ASPIRIN EC 81MG 81 MG PO (08:11)
[2024-04-19] MEDS: PAT OWN MED ***CLOPIDOGREL 75MG 75 MG PO (08:14)
[2024-04-19] MEDS: RANOLAZINE 500 MG 1000 MG PO (08:14)
--- NOTE | 2024-04-19 08:29 | HMH.PHAINT1 ---
Pharmacy Intervention Comments: MEDICATION RECONCILIATION COMPLETED ON PATIENT USING EXTERNAL FILL HISTORY FROM PHARMACY AND LISTS FROM PCP/CARDIOLOGY OFFICES. -ADOLFO AHUJAD
--- NOTE | 2024-04-19 09:55 | P.CONCA_ITS ---
History of Present Illness History of Present Illness Consult date: 04/19/24 Requesting physician: Sandeep Peace Consult reason: chest pain Chief complaint: Chest pain History of present illness: This is a 78-year-old white male with past medical history of coronary artery disease status post stenting and CABG with a medical management heart cath March 2024, HFimprEF with normal biventricular function noted February 2024, hypertension, hyperlipidemia and peripheral artery disease presented to emergency department yesterday with complaints of chest pain. Initial EKG showed sinus rhythm with occasional premature ventricular complexes at a rate of [address] and T wave abnormalities noted. Labs were as follow: WBC 8.4, hemoglobin 13.6, D-dimer negative, sodium 139, potassium 4.1, creatinine 1. 2, troponin 0.15 and a proBNP of 0. Chest x-ray showed no acute cardiopulmonary process. Patient was admitted for chest pain and further evaluation per cardiology. This morning patient reports he is chest pain-free and denies shortness of breath. [facility] Disclaimer: The information contained in this section may have been updated after the patient was seen, as this information can be updated by other users. Medical History Age related osteoporosis CAD (coronary artery disease) Claudication of right lower extremity Dizziness Dyspnea on exertion HHD (hypertensive heart disease) History of smoking 30 or more pack years Lung cancer PAD (peripheral artery disease) Pain in right leg Surgical History History of brachytherapy Circumflex artery- DEC 2021. History of open heart surgery Status post double vessel coronary artery bypass Family History Other Family history of acute congestive heart failure Family history of acute heart failure Family history of hyperlipidemia Family history of hypertension Social History (Updated 04/18/24 @ 17:12 by Paulette Desai RN) Smoking Status: Unknown if ever smoked second hand exposure: No alcohol intake: current alcohol intake frequency: a few times a week substance use type: denies use current occupational status: retired Travel in the last 8 weeks: None household members: spouse housing: house current occupational exposures/hazards: No caffeine: Yes Have you lived/traveled outside US in past 30 days?: No Contact w/someone who lives/traveled outside US past 30 days?: No Exposure to someone with infectious disease in past 14 days?: No Do you have a fever (greater than 100.4 F or 38 C)?: No Have you tested positive for COVID-19: No Exposed to someone with COVID-19 in past 14 days?: No Do you have a sore throat?: No Do you have a cough?: No Do you have any weakness?: No Are you experiencing any nausea/vomitting?: No Do you have any diarrhea?: No Are you experiencing any unusual bleeding?: No Do you have any muscle aches/pain?: No Do you have any abdominal pain?: No Are you experiencing loss of taste or smell?: No Review of Systems Review of Systems Review of systems:: pertinent systems reviewed and negative unless documented below Constitutional Constitutional: Reports system reviewed and no additional complaints, except as documented *Cardiovascular Cardiovascular: Reports chest pain *Respiratory Respiratory: Reports system reviewed and no additional complaints, except as documented *Gastrointestinal Gastrointestinal: Reports system reviewed and no additional complaints, except as documented *Neurologic Neurologic: Reports system reviewed and no additional complaints, except as documented and Denies confusion Psychiatric Psychiatric: Reports system reviewed and no additional complaints, except as documented and Denies confusion Exam Data for Last 24 hours Vital signs and Labs for Last 24 Hours: Temp Pulse Resp BP Pulse Ox O2 Del Method 98.1 F 73 16 100/56 L 96 Room Air 04/19/24 08:00 04/19/24 08:00 04/19/24 08:00 04/19/24 08:00 04/19/24 08:00 04/19/24 08:00 Laboratory Results - last 24 hr 04/18/24 13:03: WBC 8.4, RBC 4.52 L, Hgb 13.6 L, Hct 41.7 L, MCV 92.3, MCH 30.1, MCHC 32.6, RDW 14.2, Plt Count 196, MPV 10.1, Neut % (Auto) 65.1, Lymph % (Auto) 21.6, [place] % (Auto) 9.1, Eos % (Auto) 1.9, Baso % (Auto) 0.8, Neut # (Auto) 5.5, Lymph # (Auto) 1.8, [place] # (Auto) 0.8, Eos # (Auto) 0.2, Baso # (Auto) 0.1, APTT 26.4 L, D-Dimer 0.36, Sodium 139, Potassium 4.1, Chloride 106, Carbon Dioxide 24, Anion Gap 13.1, BUN 15, Creatinine 1.20, Estimated Creat Clear 50, Estimated GFR 59, Est GFR ( Amer) 71, Glucose 87, Calcium 10.2, Total Bilirubin 0.6, AST 26, ALT 19, Alkaline Phosphatase 103, Troponin I 0.15 H, NT-Pro-B Natriuret Pep 2070 H, Total Protein 7.0, Albumin 4.4, Globulin 2.6, Albumin/Globulin Ratio 1.7, HCV Ab CIRILO w/Rflx PCR Qn Negative, HIV Ag/Ab Combo Qual Negative 04/18/24 15:42: Troponin I 0.17 H 04/18/24 22:05: APTT 55.0 04/19/24 04:04: APTT 48.7 L 04/19/24 05:48: Sodium 135 L, Potassium 3.7, Chloride 101, Carbon Dioxide 28, Anion Gap 9.7, BUN 15, Creatinine 1.30 H, Estimated Creat Clear 46, Estimated GFR 54 L, Est GFR ( Amer) 65, Glucose 101 H, Calcium 10.4 H, Total Bilirubin 0.6, AST 23, ALT 17, Alkaline Phosphatase 90, Total Protein 6.3, Albumin 3.7 D, Globulin 2.6, Albumin/Globulin Ratio 1.4 I & O for Last 24 hours: Intake & Output 04/16/24 04/17/24 04/18/24 04/19/24 23:59 23:59 23:59 23:59 Intake Total 240 / 240 Output Total 950 / 950 200 / 200 Balance -710 / -710 -200 / -200 Weight 142 lb 5 oz 147 lb 0.773 oz Constitutional Constitutional: no acute distress *Routine Respiratory Exam Respiratory: Present CTA bilaterally and symmetric chest movement *Routine Cardiovascular Exam Cardiovascular: Present RRR, Normal S1 and Normal S2 *Routine Abdominal Exam Abdominal: Present soft and normoactive bowel sounds; Absent tenderness *Routine Extremities Exam Extremities: Present full ROM and normal capillary refill; Absent edema *Routine Skin Exam Skin: Present intact, dry and warm Detailed Neck Exam: Thyroids Thyroid: Absent bruit Meds Home Medications and Allergies Home Medications ?Medication ?Instructions ?Recorded ?Confirmed ?Type aspirin 81 mg tablet,delayed 81 mg PO DAILY 01/21/22 04/18/24 History release denosumab 60 mg/mL subcutaneous 60 mg SQ [id number] Osteoporosis #1 07/06/23 04/18/24 Rx syringe (Prolia) mL albuterol sulfate 90 mcg/actuation 2 inh inhalation Q6HP PRN 09/21/23 04/18/24 History aerosol inhaler shortness of breath or wheezing clopidogrel 75 mg tablet 75 mg PO DAILY 09/21/23 04/18/24 History spironolactone 25 mg tablet 25 mg PO TUTHSA 09/21/23 04/18/24 History metoprolol succinate 25 mg 25 mg PO DAILY #90 tabs 02/14/24 04/18/24 Rx tablet,extended release 24 hr nitroglycerin 0.4 mg sublingual 0.4 mg sublingual Q5MINP PRN chest 02/22/24 04/18/24 Rx tablet pain #30 tabs tiotropium 2.5 mcg-olodaterol 2.5 2 inh inhalation DAILY 03/06/24 04/19/24 History mcg/actuation mist for inhalation (Stiolto Respimat) atorvastatin 80 mg tablet 80 mg PO HS #90 tabs 03/13/24 04/18/24 Rx ranolazine 1,000 mg 1,000 mg PO BID 30 days #180 tabs 03/13/24 04/18/24 Rx tablet,extended release,12 hr furosemide 40 mg tablet 40 mg PO DAILY 04/18/24 04/18/24 History New Prescriptions to Start Prescriptions: Allergies Allergy/AdvReac Type Severity Reaction Status Date / Time No Known Allergies Allergy Verified 04/11/24 14:39 Assessment and Plan *Assessment and plan (1) Chest pain: Status: Acute Qualifiers: Chest pain type: unspecified Qualified Code(s): R07.9 - Chest pain, unspecified Category: Medical Code(s): R07.9 - Chest pain, unspecified (2) Stable angina: Status: Acute Category: Medical Code(s): I20.89 - Other forms of angina pectoris (3) CAD (coronary artery disease): Status: Chronic Qualifiers: Coronary Disease-Associated Artery/Lesion type: [place] artery [place] vs. transplanted heart: [place] heart Associated angina: with other forms of angina Qualified Code(s): I25.118 - Atherosclerotic heart disease of [place] coronary artery with other forms of angina pectoris Category: Medical Code(s): I25.10 - Atherosclerotic heart disease of [place] coronary artery without angina pectoris (4) HTN (hypertension): Status: Acute Category: Medical Code(s): I10 - Essential (primary) hypertension Plan History of coronary artery disease Status post stenting and bypass Elevated trop Patient is chest pain-free at this time EKG is negative for STEMI Troponin 0.15 trending up to 0.17 BNP 2069 Chest x-ray negative for acute cardiopulmonary process Left heart catheterization 03/2024: Medical management heart cath Echo February 2024: Normal biventricular systolic function, mild LA dilation, moderate AI, mild to moderate MR, mild TR and PI Discussed case with Dr. Gaffney who at this time recommends patient be discharged home with an increase in antianginal medications. Discussed with the patient and he is agreeable to plan Continue aspirin 81 mg p.o. daily, Plavix 75 mg p.o. daily, metoprolol succinate 25 mg p.o. daily and atorvastatin 80 mg p.o. daily. Continue Ranexa 1000 mg p.o. twice daily and add Imdur 30 mg p.o. daily. Chronic HFimpEF Chest x-ray is negative for acute cardiopulmonary process BNP is elevated at 2069 but patient denies chest pain or shortness of breath at this time Continue Lasix 40 mg p.o. daily and Aldactone 25 mg p.o. daily CV summary 04/19/2024: Patient is CV stable for discharge home. Please add Imdur 30 mg p.o. daily to patient's daily medications and have patient follow-up in cardiology clinic next week for reevaluation. Cardiac meds: Aspirin 81 mg p.o. daily Plavix 75 mg p.o. daily Metoprolol succinate 25 mg p.o. daily Atorvastatin 80 mg p.o. daily Ranexa 1000 mg p.o. twice daily Imdur 30 mg p.o. daily Lasix 40 mg p.o. daily Aldactone 25 mg p.o. daily
[2024-04-19 12:00] VITALS: BP 102/61; PULSE 96; RESP 18; TEMP 36.9; O2SAT 96
--- NOTE | 2024-04-19 13:38 | EXP.DC.SUM ---
General Admission date:: 04/18/24 HPI HPI HPI: This is a 78-year-old male who has a past medical history significant for lung cancer status postradiation, coronary artery disease, peripheral artery disease, hypertension, prior open heart surgery with a vessel failure prior smoking history (quit in 2013) who presents with chief complaint of chest pain. Due to patient's symptoms, he presented to the emergency room for evaluation. While in the emergency room, patient's troponin was elevated and there were EKG changes consistent with STEMI in the inferior. Case was discussed with varnish thinner who recommended heparin drip. Due to these recommendations and findings, patient is being admitted for further management. During my evaluation of the patient, patient states that he started having centralized chest pain around 1300 hrs. He states it occurred while he was at rest and progressively got worse. Initially, patient thought he was experiencing indigestion. Patient states he took some Tums and there was no relief. He was scheduled for cardiac rehab today and there he took some nitro and it improved his pain somewhat. His blood pressure was somewhat low, so they recommended patient present to the emergency room. It is worth mentioning that patient has had recent cath approximately 3 weeks ago where he did not receive any stents. Upon further questioning, patient is status post coronary artery bypass graft which both grafts failed. Patient is status post radiation from lung cancer and he voices his complications with his heart did not start until after he received radiation. He is currently denying any chest pain, lightheadedness, dizziness, PND, orthopnea, lower extremity swelling, shortness of breath, dyspnea, nausea, vomiting, fever, chills, rigors, or diarrhea. Chest x-ray was negative for any acute cardiopulmonary process. Additional pertinent values obtained include a red blood cell count of 4.52, hemoglobin 13.12, hematocrit 41.7, troponin 0.17, and BNP of 2070. Hospital Course Hospital Course Hospital Course: Carlo Hubbard is a 78-year-old male with a medical history significant for CAD with stents, lung cancer s/p chemo and radiation therapy who presents with chest pain and was admitted for ACS workup. #Chest pain #CAD with stents #Hypertension ? Presented with acute onset right sternal chest pain, EKG on arrival had some ST elevations but our varnish thinner Dr. Gaffney advised that is not consistent with a STEMI as patient had an unremarkable LHC just last month. Troponins peaked at 0.17. ? Chest pain resolved on arrival after taking nitro tab at home. Cardiology consulted, did not repeat [facility] [place] as unremarkable [facility] [place] 03/21/2024. ? Started Imdur 30 mg daily, continue aspirin 81 mg, atorvastatin 80 mg, Plavix 75 mg, metoprolol succinate 25 mg, ranolazine 1000 mg twice daily. ? Patient has had lung cancer before s/p extensive chemo and radiation therapy, and cardiac events started thereafter. I suspect there might be some vasospastic sequelae from scar tissue from radiation therapy, can consider switching to diltiazem in follow-up with cardiology. #Hypertension #HFimpEF ? Continue home spironolactone, Lasix 40 mg. Currently euvolemic. #COPD ? Continue home LAMA LABA. Total time spent on discharge: 35 minutes on chart review, counseling, documentation, and direct care with patient. Exam Data for Last 24 hours Vital signs and Labs for Last 24 Hours: Temp Pulse Resp BP Pulse Ox O2 Del Method 98.4 F 96 H 18 102/61 L 96 Room Air 04/19/24 12:00 04/19/24 12:00 04/19/24 12:00 04/19/24 12:00 04/19/24 12:00 04/19/24 13:00 Laboratory Results - last 24 hr 04/18/24 13:03: APTT 26.4 L, D-Dimer 0.36, Sodium 139, Potassium 4.1, Chloride 106, Carbon Dioxide 24, Anion Gap 13.1, BUN 15, Creatinine 1.20, Estimated Creat Clear 50, Estimated GFR 59, Est GFR ( Amer) 71, Glucose 87, Calcium 10.2, Total Bilirubin 0.6, AST 26, ALT 19, Alkaline Phosphatase 103, Troponin I 0.15 H, NT-Pro-B Natriuret Pep 2070 H, Total Protein 7.0, Albumin 4.4, Globulin 2.6, Albumin/Globulin Ratio 1.7, HCV Ab CIRILO w/Rflx PCR Qn Negative, HIV Ag/Ab Combo Qual Negative 04/18/24 15:42: Troponin I 0.17 H 04/18/24 22:05: APTT 55.0 04/19/24 04:04: APTT 48.7 L 04/19/24 05:48: Sodium 135 L, Potassium 3.7, Chloride 101, Carbon Dioxide 28, Anion Gap 9.7, BUN 15, Creatinine 1.30 H, Estimated Creat Clear 46, Estimated GFR 54 L, Est GFR ( Amer) 65, Glucose 101 H, Calcium 10.4 H, Total Bilirubin 0.6, AST 23, ALT 17, Alkaline Phosphatase 90, Total Protein 6.3, Albumin 3.7 D, Globulin 2.6, Albumin/Globulin Ratio 1.4 I & O for Last 24 hours: Intake & Output 04/16/24 04/17/24 04/18/24 04/19/24 23:59 23:59 23:59 23:59 Intake Total 240 / 240 Output Total 950 / 950 200 / 200 Balance -710 / -710 -200 / -200 Weight 64.552 kg 66.7 kg Constitutional Constitutional: no acute distress *Routine HEENT Exam Head: Present normocephalic Eye: Present EOMI and PERRL ENT: Present mucous membranes moist *Routine Neck Exam Neck: Present supple; Absent lymphadenopathy *Routine Respiratory Exam Respiratory: Present CTA bilaterally *Routine Cardiovascular Exam Cardiovascular: Present RRR *Routine Abdominal Exam Abdominal: Present soft and normoactive bowel sounds; Absent tenderness *Routine Extremities Exam Extremities: Absent cyanosis, clubbing or edema *Routine Skin Exam Skin: Present warm; Absent rash *Routine Neurological Exam Neurological: Present alert and oriented X3 Results Data Completed and Pending Labs on day of discharge: Labs from last 24 hours 04/19/24 04/19/24 04/18/24 05:48 04:04 22:05 APTT 48.7 L 55.0 D-Dimer Sodium 135 L Potassium 3.7 Chloride 101 Carbon Dioxide 28 Anion Gap 9.7 BUN 15 Creatinine 1.30 H Estimated Creat Clear 46 Estimated GFR 54 L Est GFR ( Amer) 65 Glucose 101 H Calcium 10.4 H Total Bilirubin 0.6 AST 23 ALT 17 Alkaline Phosphatase 90 Troponin I NT-Pro-B Natriuret Pep Total Protein 6.3 Albumin 3.7 D Globulin 2.6 Albumin/Globulin Ratio 1.4 HCV Ab CIRILO w/Rflx PCR Qn HIV Ag/Ab Combo Qual 04/18/24 04/18/24 15:42 13:03 APTT 26.4 L D-Dimer 0.36 Sodium 139 Potassium 4.1 Chloride 106 Carbon Dioxide 24 Anion Gap 13.1 BUN 15 Creatinine 1.20 Estimated Creat Clear 50 Estimated GFR 59 Est GFR ( Amer) 71 Glucose 87 Calcium 10.2 Total Bilirubin 0.6 AST 26 ALT 19 Alkaline Phosphatase 103 Troponin I 0.17 H 0.15 H NT-Pro-B Natriuret Pep 2070 H Total Protein 7.0 Albumin 4.4 Globulin 2.6 Albumin/Globulin Ratio 1.7 HCV Ab CIRILO w/Rflx PCR Qn Negative HIV Ag/Ab Combo Qual Negative DS: Diagnosis Discharge Diagnosis (1) Chest pain: Status: Acute Code(s): R07.9 - Chest pain, unspecified Qualifiers: Chest pain type: unspecified Qualified Code(s): R07.9 - Chest pain, unspecified (2) Stable angina: Status: Acute Code(s): I20.89 - Other forms of angina pectoris (3) CAD (coronary artery disease): Status: Chronic Code(s): I25.10 - Atherosclerotic heart disease of [place] coronary artery without angina pectoris Qualifiers: Associated angina: with other forms of angina Coronary Disease-Associated Artery/Lesion type: [place] artery [place] vs. transplanted heart: [place] heart Qualified Code(s): I25.118 - Atherosclerotic heart disease of [place] coronary artery with other forms of angina pectoris (4) HTN (hypertension): Status: Acute Code(s): I10 - Essential (primary) hypertension Meds Home Medications and Allergies Home Medications ?Medication ?Instructions ?Recorded ?Confirmed ?Type aspirin 81 mg tablet,delayed 81 mg PO DAILY 01/21/22 04/23/24 History release denosumab 60 mg/mL subcutaneous 60 mg SQ [id number] Osteoporosis #1 07/06/23 04/23/24 Rx syringe (Prolia) mL albuterol sulfate 90 mcg/actuation 2 inh inhalation Q6HP PRN 09/21/23 04/23/24 History aerosol inhaler shortness of breath or wheezing clopidogrel 75 mg tablet 75 mg PO DAILY 09/21/23 04/23/24 History spironolactone 25 mg tablet 25 mg PO TUTHSA 09/21/23 04/23/24 History metoprolol succinate 25 mg 25 mg PO DAILY #90 tabs 02/14/24 04/23/24 Rx tablet,extended release 24 hr nitroglycerin 0.4 mg sublingual 0.4 mg sublingual Q5MINP PRN chest 02/22/24 04/23/24 Rx tablet pain #30 tabs tiotropium 2.5 mcg-olodaterol 2.5 2 inh inhalation DAILY 03/06/24 04/23/24 History mcg/actuation mist for inhalation (Stiolto Respimat) atorvastatin 80 mg tablet 80 mg PO HS #90 tabs 03/13/24 04/23/24 Rx ranolazine 1,000 mg 1,000 mg PO BID 30 days #180 tabs 03/13/24 04/23/24 Rx tablet,extended release,12 hr furosemide 40 mg tablet 40 mg PO DAILY 04/18/24 04/23/24 History isosorbide mononitrate 30 mg 30 mg PO DAILY #30 tabs 04/19/24 04/23/24 Rx tablet,extended release 24 hr New Prescriptions to Start Prescriptions: isosorbide mononitrate Sandeep Peace Allergies Allergy/AdvReac Type Severity Reaction Status Date / Time No Known Allergies Allergy Verified 04/23/24 10:54 Discharge Plan Disposition Patient Disposition: Home, Self-Care Condition: Fair Follow up Plan Follow up with: Noris Johnston APRN [Nurse Practitioner] - 04/23/24 10:30 am Prescriptions/Medication Reconciliation: New isosorbide mononitrate 30 mg tablet extended release 24 hr 30 mg PO DAILY Qty: 30 0RF Continued aspirin 81 mg tablet,delayed release (DR/EC) 81 mg PO DAILY Stiolto Respimat 2.5-2.5 mcg/actuation mist 2 inh inhalation DAILY Patient Comments: INHALE 2 PUFFS BY MOUTH ONCE DAILY Prolia 60 mg/mL syringe 60 mg SQ [id number] Qty: 1 1RF metoprolol succinate 25 mg tablet extended release 24 hr 25 mg PO DAILY Qty: 90 1RF nitroglycerin 0.4 mg tablet, sublingual 0.4 mg SUBLINGUAL Q5MINP PRN (Reason: chest pain) Qty: 30 5RF Rx Instructions: do not exceed 3 doses per episode ranolazine 1,000 mg tablet extended release 12 hr 1,000 mg PO BID 30 Days Qty: 180 3RF atorvastatin 80 mg tablet 80 mg PO HS Qty: 90 3RF clopidogrel 75 mg tablet 75 mg PO DAILY spironolactone 25 mg tablet 25 mg PO TUTHSA albuterol sulfate 90 mcg/actuation HFA aerosol inhaler 2 inh inhalation Q6HP PRN (Reason: shortness of breath or wheezing) furosemide 40 mg tablet 40 mg PO DAILY Problem Reconciliation Problems Reviewed?: Yes Patient Discharge Instructions Patient Instructions: DI for Heart Attack Print Language: Wolof Providers Primary Care Provider: Carl Tate Admit Provider: Sandeep Peace Attending Provider: Sandeep Peace
--- NOTE | 2024-04-19 14:18 | PC.NURSE ---
pt would rather make his own appointment with pcp once discharged
--- NOTE | 2024-04-22 11:44 | SW/DCPLANNER ---
Spoke with patient on the phone. Patient stated that he is doing well. Patient stated that he is aware of his upcoming appointment. Patient stated that he has not been able to go and get his new medicine and is going to call liv garcia here in a bit. Patient stated that he has no concerns or questions at this time. Michelle zAar
== END 2024-04-19 14:18 | disposition home or self-care (01) ==
LOC: ER 15:33 → 2ND 17:05
PROVIDERS: Emergency Medicine; Nurse Practitioner Family; Admitting Provider Student in an Organized Health Care Education/Training Program; Emergency Provider Emergency Medicine; PCP Internal Medicine; Visit Provider Student in an Organized Health Care Education/Training Program
DX: I21.19 ST elevation (STEMI) myocardial infarction involving other coronary artery of inferior wall (principal); R07.9 Chest pain, unspecified; I11.0 Hypertensive heart disease with heart failure; Z95.5 Presence of coronary angioplasty implant and graft; Z79.891 Long term (current) use of opiate analgesic; Z95.1 Presence of aortocoronary bypass graft; I25.2 Old myocardial infarction; Z79.899 Other long term (current) drug therapy; I50.22 Chronic systolic (congestive) heart failure; J44.9 Chronic obstructive pulmonary disease, unspecified; Z79.51 Long term (current) use of inhaled steroids; Z82.49 Family history of ischemic heart disease and other diseases of the circulatory system; I25.10 Atherosclerotic heart disease of native coronary artery without angina pectoris
CPT/HCPCS: 36415; 71045; 80053; 83880; 84484; 85025; 85378; 85730; 86803; 87389; 93005; 99291; G0378; J1644; J1940

== ENCOUNTER 2024-04-22 08:43 | Outpatient (POV) | payer MEDICARE, SELFPAY ==
[2024-04-22 09:06] VITALS: BP 117/69; PULSE 71; RESP 18; O2SAT 98; BMI 22.8
--- NOTE | 2024-04-22 09:21 | EXP.PAIN.OV ---
HPI Data of Consult Patient: new to practice Consult date: 04/22/24 Requesting Physician: Allison Hand APRN Primary Care Provider: Carl Tate DO Consult Narrative Reason for consult: Neck pain, low back pain right-sided, right hip pain, right knee pain History of present illness: Mr. Noriega is a 78 year old male who presents today as a new patient. He is a referral from Dr. Tate's office. Today he rates his pain a 7 out of 10. Patient states that he is having neck pain that started last year after his bypass surgery and states it is just right they are in his neck. He states that this pain does not radiate into his upper extremities and that it is more with certain movements like turning his head [id number]. Patient has been to physical therapy and stated it did help temporarily and that he is also on a neck pillow that seems to be helping some. Patient states his low back, right hip and right buttocks pain has been around for 5 to 10 years and progressively worsened. He denies any specific injury or trauma that initially started this pain. He also states he does have right knee pain. Patient states he has been to the chiropractor and that this did not help. Patient has tried oral medication, heat and ice. Patient denies any injections or surgical history on his back. Patient states the pain is interfering with his ability to perform activities of daily living such as cooking and cleaning. He does state that the low back symptoms seem to be worse than the neck. He does also make mention that he is scheduled for an MRI of his neck tomorrow. His [place] has been reviewed and is appropriate. CC: Allison Hand APRN [facility] Disclaimer: The information contained in this section may have been updated after the patient was seen, as this information can be updated by other users. Medical History Age related osteoporosis CAD (coronary artery disease) Claudication of right lower extremity Dizziness Dyspnea on exertion HHD (hypertensive heart disease) History of smoking 30 or more pack years Lung cancer PAD (peripheral artery disease) Pain in right leg Surgical History History of brachytherapy Circumflex artery- DEC 2021. History of open heart surgery Status post double vessel coronary artery bypass Family History Other Family history of acute congestive heart failure Family history of acute heart failure Family history of hyperlipidemia Family history of hypertension Social History (Updated 04/22/24 @ 09:07 by Kaci Pierre, NATASHA) Smoking Status: Unknown if ever smoked second hand exposure: No alcohol intake: current alcohol intake frequency: a few times a week substance use type: denies use current occupational status: retired Travel in the last 8 weeks: None household members: spouse housing: house current occupational exposures/hazards: No caffeine: Yes Review of Systems Review of Systems Review of systems:: pertinent systems reviewed and negative unless documented below Review of systems (narrative): Review of Systems: General: No recent weight changes, no fever, no sleep disturbances Respiratory: No cough, no shortness of air, no recurring pulmonary infections Cardiovascular/peripheral vascular: No chest pain, no palpitations, no edema, no shortness of breath Gastrointestinal: No new onset incontinence, normal bowel movements reported Genitourinary: No new onset incontinence Musculoskeletal: Neck pain, low back pain right-sided, right hip pain, right knee pain Psychiatric: [Normal mood/affect] Neurological: [Denies weakness in extremities], [denies balance issues] Meds Home Medications and Allergies Home Medications ?Medication ?Instructions ?Recorded ?Confirmed ?Type aspirin 81 mg tablet,delayed 81 mg PO DAILY 01/21/22 04/22/24 History release denosumab 60 mg/mL subcutaneous 60 mg SQ [id number] Osteoporosis #1 07/06/23 04/22/24 Rx syringe (Prolia) mL albuterol sulfate 90 mcg/actuation 2 inh inhalation Q6HP PRN 09/21/23 04/22/24 History aerosol inhaler shortness of breath or wheezing clopidogrel 75 mg tablet 75 mg PO DAILY 09/21/23 04/22/24 History spironolactone 25 mg tablet 25 mg PO TUTHSA 09/21/23 04/22/24 History metoprolol succinate 25 mg 25 mg PO DAILY #90 tabs 02/14/24 04/22/24 Rx tablet,extended release 24 hr nitroglycerin 0.4 mg sublingual 0.4 mg sublingual Q5MINP PRN chest 02/22/24 04/22/24 Rx tablet pain #30 tabs tiotropium 2.5 mcg-olodaterol 2.5 2 inh inhalation DAILY 03/06/24 04/22/24 History mcg/actuation mist for inhalation (Stiolto Respimat) atorvastatin 80 mg tablet 80 mg PO HS #90 tabs 03/13/24 04/22/24 Rx ranolazine 1,000 mg 1,000 mg PO BID 30 days #180 tabs 03/13/24 04/22/24 Rx tablet,extended release,12 hr furosemide 40 mg tablet 40 mg PO DAILY 04/18/24 04/22/24 History isosorbide mononitrate 30 mg 30 mg PO DAILY #30 tabs 04/19/24 04/22/24 Rx tablet,extended release 24 hr New Prescriptions to Start Prescriptions: Allergies Allergy/AdvReac Type Severity Reaction Status Date / Time No Known Allergies Allergy Verified 04/11/24 14:39 Objective Vital signs: Pulse Resp BP Pulse Ox O2 Del Method 71 18 117/69 98 Room Air 04/22/24 09:06 04/22/24 09:06 04/22/24 09:06 04/22/24 09:06 04/22/24 09:06 Narrative: Physical Exam: General: Alert and oriented x3, no acute distress, pleasant and cooperative Lungs: Respirations even and unlabored, symmetrical chest expansion Eyes: PERRL Musculoskeletal: Flexion and extension of lumbar [spine] somewhat guarded secondary to pain, [antalgic gait noted] point tenderness along right SI with positive right Aide's, Leelee's, Gaenslen's, compression and distraction exam Neurological: Speech clear, no gross sensory deficit Assessment and Plan *Assessment and plan (1) Low back pain: Status: Acute Category: Medical Code(s): M54.50 - Low back pain, unspecified (2) Sacroiliitis: Status: Acute Category: Medical Code(s): M46.1 - Sacroiliitis, not elsewhere classified (3) Right hip pain: Status: Acute Category: Medical Code(s): M25.551 - Pain in right hip (4) Right knee pain: Status: Acute Category: Medical Code(s): M25.561 - Pain in right knee (5) Cervical pain (neck): Status: Acute Category: Medical Code(s): M54.2 - Cervicalgia Plan Patient is experiencing worsening pain along the low back and right hip. They did have limited range of motion of the lumbar spine along with point tenderness along right SI joints and a positive patient is being ordered a custom fitted LSO brace to reduce pain by restricting mobility of the spine. Aide's, Leelee's, Gaenslen's, compression and distraction exam. I did discuss with the patient that I do believe they would benefit from right SI injections. Risk and benefits were discussed with the patient and they would like to proceed forward with this option. Patient has tried and failed conservative therapy including continued at home stretching exercise for longer than 12 weeks. Patient has had both chiropractor and physical therapy with only minimal to temporary changes. I will order the patient a compounded cream. Patient has not had any injections in the past and has had this pain for longer than 3 months. Patient will be scheduled for diagnostic right SI injections under fluoroscopy. Patient will be injected with less than 1 mL solution. Patient has been instructed to contact the clinic with any concerns before the next appointment. Dr. Ruff has reviewed this note and agrees with this plan of care. This note was dictated using voice recognition software and make contain errors or omissions. All injections are used with Lidocaine or Bupivacaine and Depo Medrol.
== END 2024-04-22 23:59 | disposition home or self-care (01) ==
LOC: SC.PAIN 08:45
PROVIDERS: PCP Internal Medicine; Visit Provider Nurse Practitioner Family
DX: M54.50 Low back pain, unspecified (principal); M46.1 Sacroiliitis, not elsewhere classified; M25.551 Pain in right hip; M25.561 Pain in right knee; M54.2 Cervicalgia; Z73.89 Other problems related to life management difficulty
CPT/HCPCS: 99202; G0463

== ENCOUNTER 2024-04-23 14:26 | Outpatient (CLI) | payer MEDICARE, SELFPAY ==
--- NOTE | 2024-04-23 14:27 | MR_ITS ---
FINAL REPORT TECHNIQUE: Multiplanar MR without contrast CLINICAL HISTORY: Chronic neck pain PAIN WHEN TURNING NECK X 1 YEAR COMPARISON: None FINDINGS: Limited images of the posterior fossa are unremarkable. Alignment is normal. Cervical spinal cord shows normal signal and contour. C2-3: Mild facet overgrowth. Mild bilateral bony neural foraminal narrowing. C3-4: Moderate annular disc bulge asymmetric to the right. Mild central canal stenosis. Right lateral recess stenosis. Advanced right and moderate left neural foraminal narrowing. C4-5: Mild annular disc bulge. Moderate right uncovertebral spurring. Right lateral recess stenosis. Moderate right and mild left neural foraminal narrowing. C5-6: Mild annular disc bulge. Small right paracentral disc protrusion. Mild bilateral neural foraminal narrowing. C6-7: Moderate annular disc bulge asymmetric to the right. Central canal stenosis. Moderate to severe bilateral neural foraminal narrowing. C7-T1: Unremarkable IMPRESSION: Moderate to severe multilevel degenerative changes as above. Reviewed, Interpreted and Dictated by Lang Candelaria MD Transcribed by Jeri Sheppard Authenticated and [facility]
== END 2024-04-23 23:59 | disposition home or self-care (01) ==
LOC: RAD 14:27
PROVIDERS: PCP Internal Medicine; Visit Provider Internal Medicine
DX: M54.2 Cervicalgia (principal)
CPT/HCPCS: 72141

== ENCOUNTER 2024-05-14 14:11 | Outpatient (CLI) | payer MEDICARE, SELFPAY ==
[2024-05-14 15:48] LABS: Coronavirus 19, PCR Not Detected (NotDetected); Human Rhinovirus Not Detected (NotDetected); Influenza A, PCR Not Detected (NotDetected); Influenza B, PCR Not Detected (NotDetected); Respiratory Syncytial Virus Not Detected (NotDetected)
== END 2024-05-14 23:59 | disposition home or self-care (01) ==
LOC: LAB.DROPOF 05-15 07:54
PROVIDERS: PCP Nurse Practitioner Family; Visit Provider Nurse Practitioner Family
DX: R05.1 Acute cough (principal)
CPT/HCPCS: 87631

== ENCOUNTER 2024-05-21 12:59 | Day surgery (SDC) | payer MEDICARE, SELFPAY ==
[2024-05-21 13:07] VITALS: BP 130/69; PULSE 89; RESP 18; O2SAT 95
[2024-05-21 13:11] VITALS: BP 123/64; PULSE 69; RESP 16; TEMP 37.1; O2SAT 97; BMI 22.8
[2024-05-21] MEDS: methylPREDNISolone ACETATE 80MG/ML VIAL 80 MG (13:16)
[2024-05-21] MEDS: LIDOCAINE 1% 5ML PF VIAL 5 ML (13:16)
[2024-05-21] MEDS: BUPIVACAINE 0.25% 10ML INJ 25 MG IJ (13:16)
--- NOTE | 2024-05-21 13:21 | EXP.PAIN.PRO ---
Procedure Date: 05/21/24 Time: 13:00 Anesthesiologist:: Nicolás Briones CRNA Complications:: None Pre-procedure Diagnosis:: Right sacroiliitis Post-procedure Diagnosis:: Same Indications for Procedure:: Patient is a pleasant 78-year-old male who comes our clinic today for right sacroiliac joint injection of cortisone with local anesthetic. Patient describes low lumbar back pain off the midline to the right. Right posterior hip pain. Difficulty transitioning from sitting to standing. Difficulty with ambulation secondary to right posterior hip pain. He rates his pain 6/10. Procedure Details:: Procedure: Right sacroliliac joint injection under fluoroscopy Informed consent was obtained and the risk and benefits of the procedure were explained to the patient.~ The patient was taken to the procedure room and noninvasive monitors were placed including noninvasive blood pressure cuff and pulse oximeter.~ The patient was placed prone on the procedure table.~ The~ right hip was cleansed using Betadine as a cleansing solution.~ C-arm fluorosocpy was used to view the right SI joint.~ The skin and subcutaneous tissues were anesthetized using Lidocaine 1.5% and a 25-gauge needle.~ After this, a 22-gauge spinal needle was inserted under fluoroscopic guidance into the inferior aspect of the right SI joint.~ Omnipaque dye was injected and a good spread was seen throughout the joint.~ After this, approximately 5 mL of bupivacaine 0.25% and Depo-Medrol 40 mg was incrementally injected into the sacroiliac joint.~ The patient tolerated the procedure well with no complications.~ The patient was observed in the Pain Clinic, then discharged home neurologically intact.~ Plan and Disposition:: Patient was discharged without incident.
[2024-05-21 13:23] VITALS: BP 101/65; PULSE 86; RESP 16; O2SAT 98
== END 2024-05-21 13:23 | disposition home or self-care (01) ==
PROVIDERS: PCP Nurse Practitioner Family; Visit Provider Nurse Anesthetist, Certified Registered
DX: M46.1 Sacroiliitis, not elsewhere classified (principal)
CPT/HCPCS: 27096; G0260; J1010

== ENCOUNTER 2024-06-05 11:17 | Outpatient (POV) | payer MEDICARE, SELFPAY ==
[2024-06-05 11:31] VITALS: BP 119/68; PULSE 61; RESP 18; O2SAT 97; BMI 24.3
--- NOTE | 2024-06-05 11:44 | A.OFFVIS_ITS ---
[facility] Disclaimer: The information contained in this section may have been updated after the patient was seen, as this information can be updated by other users. Medical History Age related osteoporosis CAD (coronary artery disease) Claudication of right lower extremity Dizziness Dyspnea on exertion HHD (hypertensive heart disease) History of smoking 30 or more pack years Lung cancer PAD (peripheral artery disease) Pain in right leg Surgical History History of brachytherapy Circumflex artery- DEC 2021. History of open heart surgery Status post double vessel coronary artery bypass Family History Other Family history of acute congestive heart failure Family history of acute heart failure Family history of hyperlipidemia Family history of hypertension Social History Smoking Status: Former smoker tobacco type: cigarettes packs per day: 1 how long ago did patient quit smokin second hand exposure: No alcohol intake: former substance use type: denies use current occupational status: retired Travel in the last 8 weeks?: None household members: spouse housing: house current occupational exposures/hazards: No caffeine: Yes PM Subjective & Objective Subjective Subjective:: Patient is a pleasant 78-year-old male who presents today for follow-up of right SI injection on 05/21/2024. Today he rates his low back pain a 2 out of 10. He states that it was fairly immediate when that kicked him providing 80 to 90% relief. He does rate today about 50 to 60% ongoing improvement. He does state overall he is much more manageable with his low back pain. Patient does state that his neck pain is still going on and that he would like to see about improvement in this area. He rates the pain in his neck a 6 or a 7 out of 10. He states it is worse with certain positions such as turning his head side-to- side or looking up and down. He does state it is fairly constant with those movements and does interfere with his ability perform activities of daily living such as cooking and cleaning. He was ordered compounded cream at our last visit however he states he did not proceed forward with this. His [place] has been reviewed and is appropriate. Review of Systems: General: No recent weight changes, no fever, no sleep disturbances Respiratory: No cough, no shortness of air, no recurring pulmonary infections Cardiovascular/peripheral vascular: No chest pain, no palpitations, no edema, no shortness of breath Gastrointestinal: No new onset incontinence, normal bowel movements reported Genitourinary: No new onset incontinence Musculoskeletal: Neck pain Psychiatric: [Normal mood/affect] Neurological: [Denies weakness in extremities], [denies balance issues] Pain at rest (0-10 scale): 6 Objective Objective:: Physical Exam: General: Alert and oriented x3, no acute distress, pleasant and cooperative Lungs: Respirations even and unlabored, symmetrical chest expansion Eyes: PERRL Musculoskeletal: Flexion and extension of cervical [spine] somewhat guarded secondary to pain, positive Kemps test Neurological: Speech clear, no gross sensory deficit FINDINGS: Limited images of the posterior fossa are unremarkable. Alignment is normal. Cervical spinal cord shows normal signal and contour. C2-3: Mild facet overgrowth. Mild bilateral bony neural foraminal narrowing. C3-4: Moderate annular disc bulge asymmetric to the right. Mild central canal stenosis. Right lateral recess stenosis. Advanced right and moderate left neural foraminal narrowing. C4-5: Mild annular disc bulge. Moderate right uncovertebral spurring. Right lateral recess stenosis. Moderate right and mild left neural foraminal narrowing. C5-6: Mild annular disc bulge. Small right paracentral disc protrusion. Mild bilateral neural foraminal narrowing. C6-7: Moderate annular disc bulge asymmetric to the right. Central canal stenosis. Moderate to severe bilateral neural foraminal narrowing. C7-T1: Unremarkable IMPRESSION: Moderate to severe multilevel degenerative changes as above. Reviewed, Interpreted and Dictated by Lang Candelaria MD Transcribed by Jeri Sheppard Authenticated and ERN Has patient had previous pain injection?: Yes Percent improvement in pain since last injection: 80 to 90% initially Conservative treatment options previously tried: Home exercise plan Length of treatment: Longer than 12 weeks Meds Home Medications and Allergies Home Medications ?Medication ?Instructions ?Recorded ?Confirmed ?Type aspirin 81 mg tablet,delayed 81 mg PO DAILY 01/21/22 06/05/24 History release denosumab 60 mg/mL subcutaneous 60 mg SQ [id number] Osteoporosis #1 07/06/23 06/05/24 Rx syringe (Prolia) mL albuterol sulfate 90 mcg/actuation 2 inh inhalation Q6HP PRN 09/21/23 06/05/24 History aerosol inhaler shortness of breath or wheezing clopidogrel 75 mg tablet 75 mg PO DAILY 09/21/23 06/05/24 History spironolactone 25 mg tablet 25 mg PO TUTHSA 09/21/23 06/05/24 History nitroglycerin 0.4 mg sublingual 0.4 mg sublingual Q5MINP PRN chest 02/22/24 06/05/24 Rx tablet pain #30 tabs tiotropium 2.5 mcg-olodaterol 2.5 2 inh inhalation DAILY 03/06/24 06/05/24 History mcg/actuation mist for inhalation (Stiolto Respimat) atorvastatin 80 mg tablet 80 mg PO HS #90 tabs 03/13/24 06/05/24 Rx ranolazine 1,000 mg 1,000 mg PO BID 30 days #180 tabs 03/13/24 06/05/24 Rx tablet,extended release,12 hr furosemide 40 mg tablet 40 mg PO DAILY 04/18/24 06/05/24 History isosorbide mononitrate 30 mg 30 mg PO DAILY #90 tabs 05/13/24 06/05/24 Rx tablet,extended release 24 hr metoprolol succinate 25 mg 25 mg PO DAILY #90 tabs 05/13/24 06/05/24 Rx tablet,extended release 24 hr levofloxacin 500 mg tablet 500 mg PO DAILY 10 days #10 tabs 05/14/24 06/05/24 Rx methylprednisolone 4 mg tablets in See Rx Instructions PO PER PKG DIR 05/14/24 06/05/24 Rx a dose pack (Medrol (Kody)) #21 tabs New Prescriptions to Start Prescriptions: Allergies Allergy/AdvReac Type Severity Reaction Status Date / Time No Known Allergies Allergy Verified 04/23/24 10:54 Assessment and Plan *Assessment and plan (1) Degenerative disc disease, cervical: Status: Acute Category: Medical Code(s): M50.30 - Other cervical disc degeneration, unspecified cervical region (2) Facet arthropathy, cervical: Status: Acute Category: Medical Code(s): M47.812 - Spondylosis without myelopathy or radiculopathy, cervical region (3) Cervical spondylosis: Status: Acute Category: Medical Code(s): M47.812 - Spondylosis without myelopathy or radiculopathy, cervical region Plan Patient is experiencing significant pain in his neck that is worse with bending, twisting or lifting. Patient does state that it does interfere with her ability perform activities of daily living such as cooking and cleaning. Patient did have limited range of motion of his lumbar spine with a positive Kemps test during today's visit. I did discuss with the patient that I do believe he would benefit from a cervical medial branch block. Risk and benefits were discussed with the patient and he would like to proceed forward with this plan of care. Patient has tried and failed conservative therapy including oral medications, heat and ice, topicals, at home stretching exercise for longer than 12 weeks. Patient has been experiencing neck pain for longer than 6 months. Patient was counseled that if he does get significant relief with his first cervical medial branch block that we will plan on repeating it with the plan to progress forward to a cervical RFA at a later date. Patient agrees with this plan of care. Patient will be scheduled for his first diagnostic cervical medial branch block bilaterally C4-C5 and C5-C6 under fluoroscopy. Patient is currently on blood thinners written by Dr. Gaffney's office. We will reach out to this office to confirm he can stop this medication prior to this procedure. Patient has been instructed to contact the clinic with any concerns before the next appointment. Dr. Ruff has reviewed this note and agrees with this plan of care. This note was dictated using voice recognition software and make contain errors or omissions. All injections are used with Lidocaine, Bupivacaine and Depo Medrol. Occasionally urine drug screen is needed to verify patient's compliance with our office pain contract. This is ordered based off specific treatments related to chronic pain with the potential to abuse certain medications.
== END 2024-06-05 23:59 | disposition home or self-care (01) ==
LOC: SC.PAIN 11:19
PROVIDERS: PCP Internal Medicine; Visit Provider Nurse Practitioner Family
DX: M50.30 Other cervical disc degeneration, unspecified cervical region (principal); M47.812 Spondylosis without myelopathy or radiculopathy, cervical region; Z87.891 Personal history of nicotine dependence; Z73.89 Other problems related to life management difficulty; Z79.02 Long term (current) use of antithrombotics/antiplatelets
CPT/HCPCS: 99212; G0463

== ENCOUNTER 2024-06-25 10:22 | Inpatient (IN) | payer MEDICARE, SELFPAY ==
[2024-06-25] VITALS (10 sets, daily range): BP systolic 91–134; BP diastolic 60–79; PULSE 70–104; RESP 14–19; TEMP 36.6–37; O2SAT 97–100; BMI 22.3; BMI 21.6
--- NOTE | 2024-06-25 10:33 | ED_ITS ---
<Statement entered by Allison Cast DO - 06/25/24 14:48> I was consulted by the MICHAEL, and we discussed the complexity of the problems being addressed. I approved the treatment and management plan for this patient's care in the emergency department, thus performing a substantive portion of the medical decision making. Allison Cast DO Discharge Plan Disposition Patient Disposition: Admitted Condition: Fair Clinical Impressions Clinical Impression: Melena, Elevated troponin Discharge ED Provider: Allison Cast General Adult HPI <JOSEFINA Bolaños - Last Filed: 06/25/24 13:52> General Chief complaint: GI Bleed Stated complaint: Blood in stool Time Seen by Provider: 06/25/24 10:30 Mode of Arrival: Ambulatory Source of Information: Patient Description of Symptoms (Recalled from ER Triage Doc. by RN): pt presents to ED with c/o bleeding from rectum. pt reports monday and mondayhe had bm's with blood on the toilet paper. pt reports that this morning he had blood in the toilet bowel. pt take plavix and aspirin. pt reports no pain. History of Present Illness HPI narrative: 78-year-old male presents to the emergency department with a 2-day history of painless hematochezia/melena, patient states that he was having some constipation , noticed some blood on the toilet paper , 1 day ago, had no further episodes, until yesterday and today where he had multiple episodes of bright red blood, enough to fill the toilet bowl, also describes it as a an episode of dark red blood , patient denies any fever chills chest pain shortness of breath nausea vomiting constipation diarrhea no abdominal pain, has had some decreased urination during his episodes of constipation, was able to have a bowel movement on Monday, and some watery stool on Monday with the blood as stated above. Other past medical history consistent with prior CABG, coronary artery disease status post multiple stents on dual antiplatelet therapy of Plavix and aspirin, hypertension, COPD, hyperlipidemia, history of lung cancer, post chemoradiation the left side, unknown what type, peripheral artery disease, degenerative disc disease of the spine. Patient is a former smoker, denies any alcohol or drug use and initial triage vitals unremarkable. Onset (ago): day(s) Related Data Home Medications ?Medication ?Instructions ?Recorded ?Confirmed aspirin 81 mg tablet,delayed 81 mg PO DAILY 01/21/22 06/05/24 release albuterol sulfate 90 mcg/actuation 2 inh inhalation Q6HP PRN 09/21/23 06/05/24 aerosol inhaler shortness of breath or wheezing clopidogrel 75 mg tablet 75 mg PO DAILY 09/21/23 06/05/24 spironolactone 25 mg tablet 25 mg PO TUTHSA 09/21/23 06/05/24 tiotropium 2.5 mcg-olodaterol 2.5 2 inh inhalation DAILY 03/06/24 06/05/24 mcg/actuation mist for inhalation (Stiolto Respimat) furosemide 40 mg tablet 40 mg PO DAILY 04/18/24 06/05/24 Previous Rx's ?Medication ?Instructions ?Recorded denosumab 60 mg/mL subcutaneous 60 mg SQ [id number] Osteoporosis #1 07/06/23 syringe (Prolia) mL nitroglycerin 0.4 mg sublingual 0.4 mg sublingual Q5MINP PRN chest 02/22/24 tablet pain #30 tabs atorvastatin 80 mg tablet 80 mg PO HS #90 tabs 03/13/24 ranolazine 1,000 mg 1,000 mg PO BID 30 days #180 tabs 03/13/24 tablet,extended release,12 hr isosorbide mononitrate 30 mg 30 mg PO DAILY #90 tabs 05/13/24 tablet,extended release 24 hr metoprolol succinate 25 mg 25 mg PO DAILY #90 tabs 05/13/24 tablet,extended release 24 hr levofloxacin 500 mg tablet 500 mg PO DAILY 10 days #10 tabs 05/14/24 methylprednisolone 4 mg tablets in See Rx Instructions PO PER PKG DIR 05/14/24 a dose pack (Medrol (Kody)) #21 tabs Allergies Allergy/AdvReac Type Severity Reaction Status Date / Time No Known Allergies Allergy Verified 04/23/24 10:54 [facility] <JOSEFINA Bolaños - Last Filed: 06/25/24 13:52> [facility] Disclaimer: The information contained in this section may have been updated after the patient was seen, as this information can be updated by other users. Medical History Age related osteoporosis CAD (coronary artery disease) Claudication of right lower extremity Dizziness Dyspnea on exertion HHD (hypertensive heart disease) History of smoking 30 or more pack years Lung cancer PAD (peripheral artery disease) Pain in right leg Surgical History History of brachytherapy Circumflex artery- DEC 2021. History of open heart surgery Status post double vessel coronary artery bypass Family History Other Family history of acute congestive heart failure Family history of acute heart failure Family history of hyperlipidemia Family history of hypertension Social History Smoking Status: Former smoker tobacco type: cigarettes packs per day: 1 how long ago did patient quit smokin second hand exposure: No alcohol intake: former substance use type: denies use current occupational status: retired Travel in the last 8 weeks?: None household members: spouse housing: house current occupational exposures/hazards: No caffeine: Yes Have you lived/traveled outside [place] in past 30 days?: No Contact w/someone who lives/traveled outside US past 30 days?: No Exposure to someone with infectious disease in past 14 days?: No Do you have a fever (greater than 100.4 F or 38 C)?: No Have you tested positive for COVID-19?: No Exposed to someone with COVID-19 in past 14 days?: No Do you have a sore throat?: No Do you have a cough?: No Do you have any weakness?: No Do you have any diarrhea?: No Are you experiencing any unusual bleeding?: Yes Do you have any muscle aches/pain?: No Do you have any abdominal pain?: No Are you experiencing loss of taste or smell?: No Other Medical History Have you received the Flu Vaccine for this season: Yes Have you received the Pneumonia Vaccine: Yes <JOSEFINA Bolaños - Last Filed: 06/25/24 13:52> ROS Obtained: Yes All systems reviewed & no additional complaints except as documented Physical Exam <JOSEFINA Bolaños - Last Filed: 06/25/24 13:52> General General appearance: alert and in no apparent distress Head Head exam: atraumatic and normocephalic Eye Eye exam: Present PERRL and EOMI ENT ENT exam: Present mucous membranes moist Neck Neck exam: Present normal inspection Chest Chest inspection: Present normal inspection and symmetric chest wall rise Respiratory Respiratory exam: Present normal lung sounds bilaterally; Absent respiratory distress Cardiovascular Cardiovascular exam: Present regular rate and normal rhythm Abdominal Exam Abdominal exam: Present soft; Absent tenderness Rectal Exam Rectal exam: Present heme (+) stool and bloody stool Extremities Exam Extremities exam: Present normal inspection Neurological Exam Neurological exam: Present alert and oriented X3 Psychiatric Psychiatric exam: Present normal affect Skin Skin exam: Present warm and dry Medical Decision Making <JOSEFINA Bolaños - Last Filed: 06/25/24 13:52> Medical Records Medical records reviewed: Yes I reviewed the patient's medical records. Screening: Per USPSTF and CDC recommendations, given the prevalence of disease in our region, it is our hospital?s policy to screen for HIV and viral Hepatitis for all patients aged 18 and over and those with ongoing risk factors. Naveen Inquiry Pt receiving controlled substance: No Naveen was queried for this patient: No Vital Signs: 06/25/24 10:29 06/25/24 10:30 06/25/24 11:00 Temperature 97.9 F Temperature Source Oral Pulse Rate 82 77 Pulse Rate [Left Radial] 85 Respiratory Rate 19 Blood Pressure 121/71 112/64 Blood Pressure [Right Arm] 134/79 Blood Pressure Mean Blood Pressure Mean [Right Arm] 97 Blood Pressure Source [Right Arm] Automatic Cuff Blood Pressure Position [Right Arm] Supine 02 Sat by Pulse Oximetry 99 100 98 Oxygen Delivery Method Room Air Room Air Room Air 06/25/24 11:30 06/25/24 12:00 06/25/24 12:17 Temperature Temperature Source Pulse Rate 80 71 74 Pulse Rate [Left Radial] Respiratory Rate 18 Blood Pressure 104/66 L 97/62 L 91/66 L Blood Pressure [Right Arm] Blood Pressure Mean 82 Blood Pressure Mean [Right Arm] Blood Pressure Source [Right Arm] Blood Pressure Position [Right Arm] 02 Sat by Pulse Oximetry 99 97 97 Oxygen Delivery Method 06/25/24 12:30 Temperature Temperature Source Pulse Rate 70 Pulse Rate [Left Radial] Respiratory Rate Blood Pressure 103/60 L Blood Pressure [Right Arm] Blood Pressure Mean Blood Pressure Mean [Right Arm] Blood Pressure Source [Right Arm] Blood Pressure Position [Right Arm] 02 Sat by Pulse Oximetry 98 Oxygen Delivery Method Lab Data Lab Results 06/25/24 10:34: WBC 8.4, RBC 4.52 L, Hgb 14.0 L, Hct 42.5, MCV 94.0, MCH 31.0, MCHC 32.9, RDW 14.7, Plt Count 211, MPV 9.9, Neut % (Auto) 70.9, Lymph % (Auto) 18.4, Phelps % (Auto) 6.7, Eos % (Auto) 1.1, Baso % (Auto) 0.5, Neut # (Auto) 6.0, Lymph # (Auto) 1.5, [place]helps # (Auto) 0.6, Eos # (Auto) 0.1, Baso # (Auto) 0.0, Sodium 141, Potassium 3.9, Chloride 106, Carbon Dioxide 28, Anion Gap 10.9, BUN 22 H, Creatinine 1.20, Estimated Creat Clear 49, Estimated GFR 59, Est GFR ( Amer) 71, Glucose 97, Calcium 9.8, Total Bilirubin 0.8, AST 32, ALT 17, Alkaline Phosphatase 79, Troponin I 1.66 H, NT-Pro-B Natriuret Pep 3570 H, Total Protein 6.8, Albumin 4.0, Globulin 2.8, Albumin/Globulin Ratio 1.4, Lipase 50 06/25/24 10:50: Lactate 1.4, Blood Type O Positive, Antibody Screen Negative 06/25/24 11:34: Urine Color Yellow, Urine Appearance Clear, Urine pH 6.0, Ur Specific [place] 1.020, Urine Protein Negative, Urine Glucose (UA) Negative, Urine Ketones Negative, Urine Blood Negative, Urine Nitrate Negative, Urine Bilirubin Negative, Urine Urobilinogen 0.2, Ur Leukocyte Esterase Negative, Urine RBC None, Urine WBC None, Ur Squamous Epith Cells None, Urine Bacteria None 06/25/24 12:16: Stool Occult Blood Positive A 06/25/24 12:36: Troponin I 1.53 H 06/25/24 10:34 06/25/24 10:34 Orders (Tests/Meds): ED MEDICATIONS Discontinued Medications Generic Name Dose Route Start Last Admin Trade Name Freq PRN Reason Stop Dose Admin Pantoprazole Sodium 80 mg/ 100 mls @ 100 mls/hr 06/25/24 10:42 06/25/24 10:54 Sodium Chloride IV 06/25/24 11:41 100 mls/hr ONCE ONE Administration Lactated Ringer's 1,000 mls @ 999 mls/hr 06/25/24 12:29 06/25/24 12:59 Lactated Ringer's 1000 Ml Bag IV 06/25/24 13:29 999 mls/hr .Q1H1M ONE Administration Iopamidol 80 ml 06/25/24 11:27 06/25/24 11:31 Iopamidol-370 (76%);100ml Bottle IV 06/25/24 11:28 80 ml ONCE ONE Administration Sodium Chloride 10 ml 06/25/24 11:27 06/25/24 11:31 Sodium Chloride 0.9% 10ml Syr (Rad Only) IV 06/25/24 11:28 10 ml ONCE ONE Administration Sodium Chloride 50 ml 06/25/24 11:27 06/25/24 11:31 0.9 % Sodium Chloride 50 Ml Vial IV 06/25/24 11:28 50 ml ONCE ONE Administration ORDERS Category Date Time Status Type and Screen Stat BBK 06/25/24 10:[address] angio abd/pel - GI Bleed Stat Cat Scan 06/25/24 10:39 Completed Consult to Cardiology [CONS] Routine Cons 06/25/24 13:11 Active Consult to Gastroenterology [CONS] Routine Cons 06/25/24 13:11 Active XR chest portable Stat Exams 06/25/24 10:41 Completed Complete Blood Count Auto Diff Stat Lab 06/25/24 10:34 Completed Comprehensive Metabolic Panel Stat Lab 06/25/24 10:34 Completed Lactic Acid Stat Lab 06/25/24 10:50 Completed Lipase Stat Lab 06/25/24 10:34 Completed NT Pro Brain Natriuretic Pep. Stat Lab 06/25/24 10:34 Completed Occult Blood,Stool Stat Lab 06/25/24 12:16 Completed Troponin I Q3H Lab 06/25/24 12:36 Completed Troponin I Q3H Lab 06/25/24 16:45 Ordered Troponin I Stat Lab 06/25/24 10:34 Completed Urinalysis and Microscopic Stat Lab 06/25/24 11:34 Completed CA echo doppler complete Routine Y 06/25/24 13:27 Ordered Medical Decision Narrative: 78-year-old male presents the emergency department with melena and hematochezia for the last several days differential diagnose include but not limited to, upper GI bleed, lower GI bleed, diverticulitis, gastroenteritis, gastritis, GERD, PUD, acute UTI, internal hemorrhoid, external hemorrhoid, anal fissure, constipation, ileus, pseudo colonic obstruction, bowel obstruction among others. Discussed patient case with inpatient Dr. Cast Will obtain basic laboratory studies, lipase lactate proBNP troponin urinalysis, chest x-ray CTA abdomen pelvis GI bleed protocol, EKG and type and screen. Will give 80 mg IV Protonix for GI prophylaxis, will obtain fecal occult test. CBC is notable for hemoglobin of 14, erythrocyte pi?a at 4.52 hematocrit within normal limits and no leukocytosis. CMP notable for BUN is minimally elevated at 22 otherwise unremarkable Troponin is elevated at 1.6, which is outside the patient's baseline, is not having active chest pain, or shortness of breath, proBNP is elevated at 3570. I reviewed the patient's chest x-ray along the corresponding radiologic report, no acute findings. Urinalysis is unremarkable, negative nitrites, negative leukocyte esterase, Will give 1 L LR IV. Fecal occult is positive Blood type is O+, antibody screen is negative. I reviewed the patient's CTA abdomen pelvis with contrast along the corresponding radiologic report, no CT angiographic findings of active bleeding, distal sigmoid and rectal colitis, significant iliofemoral stenosis is present bilaterally. I discussed patient case with the hospitalist physician Dr. Peace at 1pm, he recommends discussing this patient's case with the wharf attendant and GI prior to possible admission. Will call cardiology consult, nursing staff called wharf attendant office at around 1:08 PM, they will call back. Repeat troponin is trending downwards at 1.53 Discussed this patient's case with Dr. Miranda the GI physician on-call at 1:15 PM, he recommends stabilized/cardiology clearance for rising troponin prior to scope most likely tomorrow, recommend n.p.o. after midnight, and holding antiplatelet medication at this time for possible admission and GI scope/intervention in the a.m. I discussed this patient case with George Shi PA-C with cardiology, at approximately 1:25 PM, they will come see the patient in consultation. Closed loop communication discussed with hospitalist at 1:30 PM, patient will be admitted with possible scope in the a.m./GI consultation and cardiology consultation is pending cardiac clearance for troponin elevation. I discussed need for admission with the patient and family the bedside patient and family agree with current admission plan/treatment plan. <Allison N Cast, DO - Last Filed: 06/25/24 11:23> Vital Signs: 06/25/24 10:29 06/25/24 10:30 06/25/24 11:00 Temperature 97.9 F Temperature Source Oral Pulse Rate 82 77 Pulse Rate [Left Radial] 85 Respiratory Rate 19 Blood Pressure 121/71 112/64 Blood Pressure [Right Arm] 134/79 Blood Pressure Mean Blood Pressure Mean [Right Arm] 97 Blood Pressure Source [Right Arm] Automatic Cuff Blood Pressure Position [Right Arm] Supine 02 Sat by Pulse Oximetry 99 100 98 Oxygen Delivery Method Room Air Room Air Room Air 06/25/24 11:30 06/25/24 12:00 06/25/24 12:17 Temperature Temperature Source Pulse Rate 80 71 74 Pulse Rate [Left Radial] Respiratory Rate 18 Blood Pressure 104/66 L 97/62 L 91/66 L Blood Pressure [Right Arm] Blood Pressure Mean 82 Blood Pressure Mean [Right Arm] Blood Pressure Source [Right Arm] Blood Pressure Position [Right Arm] 02 Sat by Pulse Oximetry 99 97 97 Oxygen Delivery Method 06/25/24 12:30 Temperature Temperature Source Pulse Rate 70 Pulse Rate [Left Radial] Respiratory Rate Blood Pressure 103/60 L Blood Pressure [Right Arm] Blood Pressure Mean Blood Pressure Mean [Right Arm] Blood Pressure Source [Right Arm] Blood Pressure Position [Right Arm] 02 Sat by Pulse Oximetry 98 Oxygen Delivery Method Lab Data Lab Results 06/25/24 10:34: WBC 8.4, RBC 4.52 L, Hgb 14.0 L, Hct 42.5, MCV 94.0, MCH 31.0, MCHC 32.9, RDW 14.7, Plt Count 211, MPV 9.9, Neut % (Auto) 70.9, Lymph % (Auto) 18.4, [place]hel[place] % (Auto) 6.7, Eos % (Auto) 1.1, Baso % (Auto) 0.5, Neut # (Auto) 6.0, Lymph # (Auto) 1.5, [place] # (Auto) 0.6, Eos # (Auto) 0.1, Baso # (Auto) 0.0, Sodium 141, Potassium 3.9, Chloride 106, Carbon Dioxide 28, Anion Gap 10.9, BUN 22 H, Creatinine 1.20, Estimated Creat Clear 49, Estimated GFR 59, Est GFR ( Amer) 71, Glucose 97, Calcium 9.8, Total Bilirubin 0.8, AST 32, ALT 17, Alkaline Phosphatase 79, Troponin I 1.66 H, NT-Pro-B Natriuret Pep 3570 H, Total Protein 6.8, Albumin 4.0, Globulin 2.8, Albumin/Globulin Ratio 1.4, Lipase 50 06/25/24 10:50: Lactate 1.4, Blood Type O Positive, Antibody Screen Negative 06/25/24 11:34: Urine Color Yellow, Urine Appearance Clear, Urine pH 6.0, Ur Specific [place] 1.020, Urine Protein Negative, Urine Glucose (UA) Negative, Urine Ketones Negative, Urine Blood Negative, Urine Nitrate Negative, Urine Bilirubin Negative, Urine Urobilinogen 0.2, Ur Leukocyte Esterase Negative, Urine RBC None, Urine WBC None, Ur Squamous Epith Cells None, Urine Bacteria None 06/25/24 12:16: Stool Occult Blood Positive A 06/25/24 12:36: Troponin I 1.53 H Orders (Tests/Meds): ED MEDICATIONS Discontinued Medications Generic Name Dose Route Start Last Admin Trade Name Freq PRN Reason Stop Dose Admin Pantoprazole Sodium 80 mg/ 100 mls @ 100 mls/hr 06/25/24 10:42 06/25/24 10:54 Sodium Chloride IV 06/25/24 11:41 100 mls/hr ONCE ONE Administration Lactated Ringer's 1,000 mls @ 999 mls/hr 06/25/24 12:29 06/25/24 12:59 Lactated Ringer's 1000 Ml Bag IV 06/25/24 13:29 999 mls/hr .Q1H1M ONE Administration Iopamidol 80 ml 06/25/24 11:27 06/25/24 11:31 Iopamidol-370 (76%);100ml Bottle IV 06/25/24 11:28 80 ml ONCE ONE Administration Sodium Chloride 10 ml 06/25/24 11:27 06/25/24 11:31 Sodium Chloride 0.9% 10ml Syr (Rad Only) IV 06/25/24 11:28 10 ml ONCE ONE Administration Sodium Chloride 50 ml 06/25/24 11:27 06/25/24 11:31 0.9 % Sodium Chloride 50 Ml Vial IV 06/25/24 11:28 50 ml ONCE ONE Administration ORDERS Category Date Time Status Type and Screen Stat BBK 06/25/24 10:[address] angio abd/pel - GI Bleed Stat Cat Scan 06/25/24 10:39 Completed Consult to Cardiology [CONS] Routine Cons 06/25/24 13:11 Active Consult to Gastroenterology [CONS] Routine Cons 06/25/24 13:11 Active XR chest portable Stat Exams 06/25/24 10:41 Completed Complete Blood Count Auto Diff Stat Lab 06/25/24 10:34 Completed Comprehensive Metabolic Panel Stat Lab 06/25/24 10:34 Completed Lactic Acid Stat Lab 06/25/24 10:50 Completed Lipase Stat Lab 06/25/24 10:34 Completed NT Pro Brain Natriuretic Pep. Stat Lab 06/25/24 10:34 Completed Occult Blood,Stool Stat Lab 06/25/24 12:16 Completed Troponin I Q3H Lab 06/25/24 12:36 Completed Troponin I Q3H Lab 06/25/24 16:45 Ordered Troponin I Stat Lab 06/25/24 10:34 Completed Urinalysis and Microscopic Stat Lab 06/25/24 11:34 Completed CA echo doppler complete Routine Y 06/25/24 13:27 Ordered ECG Data Tracing #1: I reviewed this ECG and interpreted as documented below: Normal sinus rhythm with a ventricular rate of [address]/T wave changes that acute STEMI. No significant change from prior EKG. Normal intervals ECG initial impression date: 06/25/24 ECG initial impression time: 10:51 Critical Care <JOSEFINA Bolaños - Last Filed: 06/25/24 13:52> Critical Care Time Critical Care Time: No
--- NOTE | 2024-06-25 10:39 | CT_ITS ---
FINAL REPORT TECHNIQUE: Pre-and postcontrast images of the abdomen and pelvis were performed by computed tomography. Extensive 3-D reconstruction images were performed. A CTA was performed. This study was performed with techniques to keep radiation doses as low as reasonably achievable (ALARA). Individualized dose reduction techniques using automated exposure control or adjustment of mA and/or kV according to the patient's size were employed. CLINICAL HISTORY: Painless hematochezia/melena COMPARISON: None FINDINGS: ABDOMEN AND PELVIS: There is a left adrenal nodule present, denser than a typical adenoma, measuring 15 mm in size. An upper pole left renal cyst is present. The remaining solid organs are unremarkable. The gallbladder has been surgically resected. The abdominal bowel is negative. The appendix is normal in appearance. There is wall thickening of the distal sigmoid colon and rectum, compatible with distal colitis. Bladder and prostate are unremarkable. CTA: There is moderate diffuse aortic plaque. Mild SMA stenosis is present. The celiac axis and GINGER are widely patent. There is no extravasation of contrast. The renal arteries are widely patent bilaterally. There is high-grade long segment stenosis of the left common iliac artery of up to 80%, with moderate left external iliac artery stenosis of approximately 50%. There is high-grade right common femoral artery stenosis up to 80%. IMPRESSION: No CT angiographic findings of active bleeding. Distal sigmoid and rectal colitis. Significant iliofemoral stenoses are present bilaterally. Reviewed, Interpreted and Dictated by Lang Candelaria MD Transcribed by Frida Gilbert Authenticated and . [facility]
--- NOTE | 2024-06-25 10:41 | XR_ITS ---
FINAL REPORT CLINICAL HISTORY: Shortness of breath COMPARISON: 04/18/2024 FINDINGS: A single view of the chest was obtained. The patient is status post CABG. There is chronic elevation of the left hemidiaphragm. There is no acute pulmonary density. There is pleural thickening or scarring in the left lung apex, unchanged from prior exam. IMPRESSION: No acute findings. Reviewed, Interpreted and Dictated by Lang Candelaria MD Transcribed by Viry Padilla Authenticated and . [facility]
[2024-06-25 10:47] LABS: Basophils % 0.5 % (0.1-2.0); Eosinophils # 0.1 Kmm3 (0.0-0.4); Eosinophils % 1.1 % (0.1-12.0); Hematocrit 42.5 % (42.0-52.0); Immature Granulocytes % 2.4 %; Lymphocytes # 1.5 K/mm3 (0.7-4.5); Lymphocytes % 18.4 % (10-50); Mean Corpuscular HGB Conc 32.9 g/dL (31.8-35.4); Mean Platelet Volume 9.9 fl (7.4-10.4); Monocytes # 0.6 K/mm3 (0.1-1.0); Monocytes % 6.7 % (1.7-9.3); Neutrophils % 70.9 % (37.0-80.0); Nucleated Red Blood Cells # 0 10^3/uL; Nucleated Red Blood Cells % 0 %; Platelet Count 211 K/mm3 (142-424); Red Blood Count 4.52 M/mm3 (4.60-6.20); Red Cell Distribution Width 14.7 % (11.5-17.5); Red Cell Distribution Width-SD 50.8 fL; White Blood Count 8.4 K/mm3 (4.8-10.8)
--- NOTE | 2024-06-25 10:49 | ECG_ITS ---
APPROVED REPORT Exam: Resting ECG HR:77 bpm ECG Measurements Heart Rate 77 AXES VA 152 P 7 QRSd 109 QRS 49 QT 399 T 84 QTc 430 Conclusion SINUS RHYTHM MODERATE ST DEPRESSION [0.05+ mV ST DEPRESSION] ABNORMAL ECG No STEMI Electronically signed by : MARNI FULTON, 06/26/2024 02:57:29
[2024-06-25] MEDS: PANTOPRAZOLE SODIUM 80 MG in 0.9 % SODIUM CHLORIDE 100 ML 100 MG IV (10:54)
[2024-06-25 10:56] LABS: Alanine Aminotransferase 17 U/L (12-78); Albumin/Globulin Ratio 1.4 (1.1-1.8); Alkaline Phosphatase 79 U/L (38-126); Anion Gap 10.9 mEq/L (5-15); Aspartate Amino Transferase 32 U/L (17-59); Bilirubin,Total 0.8 mg/dl (0.2-1.3); Blood Urea Nitrogen 22 mg/dl (9-20); Calcium 9.8 mg/dl (8.4-10.2); Carbon Dioxide 28 mmol/L (22.0-30.0); Chloride 106 mmol/L (98-107); Creatinine Clearance Estimated 49 mL/min (50-200); Estimated Glomerular Filt Rate 59 ml/min (>60); GFR (African American) 71 ML/MIN (>60); Globulin 2.8 g/dL (1.3-3.2); Glucose 97 mg/dl (74-100); Lipase 50 U/L (23-300); Potassium 3.9 mmoL/L (3.5-5.1); Sodium 141 mmol/L (136-145); Total Protein,Serum 6.8 g/dl (6.3-8.2)
[2024-06-25 11:08] LABS: NT Pro Brain Natriuretic Pep. 3570 pg/mL (0-450)
[2024-06-25 11:15] LABS: Lactic Acid 1.4 mmol/L (0.7-2.1)
[2024-06-25 11:20] LABS: Troponin I 1.66 ng/ml (0.00-0.034)
[2024-06-25] MEDS: IOPAMIDOL-370 (76%);100ML BOTTLE 80 ML IV (11:31)
[2024-06-25] MEDS: SODIUM CHLORIDE 0.9% 10ML SYR (RAD ONLY) 10 ML IV (11:31)
[2024-06-25] MEDS: 0.9 % SODIUM CHLORIDE 50 ML VIAL IV (11:31)
[2024-06-25 11:40] LABS: Microscopic, Urine URINE MICROSCOPIC (MICROSCOPIC)
[2024-06-25 11:49] LABS: Appearance,Urine CLEAR (Clear); Bilirubin,Urine Negative (Negative); Blood, Urine Negative (Negative); Color,Urine YELLOW (Yellow); Glucose,Urine (UA) Negative (Negative); Ketones,Urine Negative (Negative); Leukocyte Esterase,Urine Negative (Negative); Nitrate,Urine Negative (Negative); Protein,Urine Negative (Negative); Urobilinogen,Urine 0.2 EU/dl (0.2)
[2024-06-25 12:36] LABS: Occult Blood,Stool Positive (Negative)
[2024-06-25] MEDS: LACTATED RINGERS 1000ML 1,000 ML 999 ML IV (12:59)
--- NOTE | 2024-06-25 13:05 | PC.NURSE ---
CARDIOLOGY NOTIFIED OF CONSULT
--- NOTE | 2024-06-25 13:05 | PC.NURSE ---
on phone with hospitalist
[2024-06-25 13:10] LABS: Troponin I 1.53 ng/ml (0.00-0.034)
--- NOTE | 2024-06-25 13:10 | PC.NURSE ---
MESSAGE LEFT FOR DR SAUER
--- NOTE | 2024-06-25 13:27 | CA_ITS ---
APPROVED REPORT EXAM: Comprehensive 2D, Doppler, and color-flow Echocardiogram Community Leader: NGOC Suh, RVS Ht: 5 ft 8 in Wt: 147lbs BSA: 1.79 BP: 120/60 mmHg Indications: NSTEMI, GI bleed, CAD, Murmur, MR, TR, AI, COPD 2D Dimensions Left Atrium 3.43 cm M: 3.0 - 4.0 LA Volume 63.30 mL LA Volume Index 35.36 mL/m2 (M/F) 16-34 M-Mode Dimensions RVDd 1.51 cm (0.9-2.6) LA Diam 3.77 cm (1.9-4.0) LVDd 5.34 cm (3.5-5.7) LVDs 4.19 cm (3.5-5.7) IVSd 0.94 cm (0.6-1.1) PWd 0.91 cm (0.6-1.1) EF (Teich) 41.00% EPSs 1.76 cm FS 20.00% EDV (Teich) 128.40 mL TAPSE 1.66 (<1.7) ESV (Teich) 78.10 mL LV Diastology E Decel Time 143 (160-240 msec) E/A Ratio 1.34 MED A' 8.40 cm/s LAT A' 6.10 cm/s Aortic Valve MATTY Index 1.18 cm2/m2 AoV Peak Tang. 141.0 (50-130 cm/s) AI PHT 561.00 ms AO Peak GR. 8.00 mmHg AO Mean GR. 4.00 (<5 mmHg) AO VTI 30.3 (18-25 cm) MATTY (VTI) 2.18 (2.5-4.5 cm2) Mitral Valve MV A Velocity 83.0 (40-130 cm/s) E/A Ratio 1.34 Tricuspid Valve TR P. Velocity 290.00 cm/s RAP Estimate 10.00 mmHg RVSP 43.60 mmHg Left Ventricle The left ventricle is normal size. The left ventricular systolic function is low normal. There is thinning of the basal septal LV wall, suggestive of possible presence of septal aneurysm. There is akinesis of the basal septal LV wall. Diastolic function is indeterminate. LVEF is 50%. Right Ventricle The right ventricle is normal in size. The right ventricular systolic function is normal. Atria The left atrium is mildly dilated. Right atrium is mildly dilated. There is no Doppler evidence of interatrial shunt. Aortic Valve The aortic valve is mildly thickened. There is no aortic valvular stenosis. Mild aortic regurgitation. Mitral Valve The mitral valve is normal in structure. No evidence of mitral valve stenosis. Moderate mitral regurgitation. Tricuspid Valve Tricuspid valve is grossly normal in structure and function. Mild tricuspid regurgitation. RVSP is 20-25 mmHg. Pulmonic Valve The pulmonary valve is normal in structure. Trace pulmonic regurgitation. Great Vessels The aortic root is normal in size. IVC is normal in size and collapses >50% with inspiration. Pericardium There is no pericardial effusion. Other Information Study Quality: Fair Conclusion Low normal LV systolic function (LVEF 50%). Akinesis of the basal septal LV wall. 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 Moderate MR. Mild AI, mild TR. When directly compared to the prior study from , the overall systolic function is unchanged. Also, the basal septal akinesis (and likely aneurysm) was also previously present. Electronically signed by : Mica Alberts MD 06/25/2024 23:00:24
--- NOTE | 2024-06-25 13:35 | PC.NURSE ---
call made to clerical warehouse worker for bed placement
--- NOTE | 2024-06-25 13:39 | PC.NURSE ---
edna acevedo at bedside
--- NOTE | 2024-06-25 13:50 | PC.NURSE ---
report called to renetta on second floor
--- NOTE | 2024-06-25 14:03 | EXP.CARD.CON ---
History of Present Illness History of Present Illness Consult date: 06/25/24 Requesting physician: Sandeep Peace Consult reason: known to you Chief complaint: NSTEMI Additional Medical History:: 1. CAD is present and likely stable. -Isosorbide mononitrate added for admission 04/2024 due to mildly elevated troponins but with no EKG changes and patient with no significant symptoms. -LHC, 03/21/2024, patent stents, no mention of grafts but CRUZ/SVG known to be occluded and SVG to RCA small with Left to right collaterals to RCA. EF 50%. LVEDP 10 mm Hg -3 SOFY to prox/mid LAD, 1 SOFY to Cx. Occluded CRUZ/SVG to LAD. SVG to RCA small but patent. 09/21/2023. -Echo, 07/14/2023, normal biventricular systolic function, mild biatrial dilation, mild AI/mild MR. -CABG on 05/12/2023, SVG to RCA, CRUZ to LAD. -SOFY to circ 08/2022 -Brachytherapy to CX DEC 2021-?Brandan Chung @ [facility] -SOFY in 03/2021 to circ. -SOFY MAY 2020, SOFY LEFT MAIN 2019. -DAPT Plavix/asa. 2. Hyperlipidemia -LDL goal is < 55. -on atorvastatin therapy with last LDL 81, 03/2023 3. PAD is present and likely stable. -Abdomen CTA AUGUST 2021- medical mgt PAD, -05/2021, angioplasty to the SFA and profunda femoris 4. Ex-smoker. -recurring lung cancer, 2023, -3 radiation treatments @[facility] at . -Patient reports recent PET scan stable with no evidence of worsening cancer. 5. Chronic HFimpEF, -EF 40-45% on limited echo in September 2023 -Echo, 02/23/2024, normal biventricular systolic function, mild LA dilation. Moderate AI,mild to moderate MR, mild TR mild PI. 6. GI Bleed, 06/25/2024 History of present illness: 78-year-old white male with extensive coronary artery history and well-known to us presented to the emergency department for recent constipation that resolved with subsequent melena x 1 and hematochezia x 2 this a.m. He came to the ER for further evaluation. He denies any chest pain, pressure or tightness but has noted some mild fatigue recently. Workup in the ER included troponins which are noted to be elevated at 1.6 and declining down to 1.5 which are above the patient's baseline from recent admission. EKG shows inferior ST segment depression concerning for inferior ischemia. Patient is known to have bypass grafts that have failed including a graft to the RCA. He is getting collaterals from the left system to this area which may not be adequate under duress from GI bleed. Clinically patient is stable with no chest pain. We will obtain an echocardiogram later today for evaluation of his ejection fraction. We anticipate having him go for endoscopy tomorrow to evaluate the etiology of his bleeding. We would plan to do a cardiac cath after endoscopy but prior to discharge. [facility] Disclaimer: The information contained in this section may have been updated after the patient was seen, as this information can be updated by other users. Medical History (Updated 06/25/24 @ 14:31 by JOSEFINA Alberto) Non-ST elevation [place] (NSTEMI) ST elevation VA (STEMI) Upper respiratory infection Cervical pain (neck) Encounter for monitoring diuretic therapy Dyspnea on exertion History of smoking 30 or more pack years Age related osteoporosis Lung cancer Pain in right leg Claudication of right lower extremity PAD (peripheral artery disease) Dizziness HHD (hypertensive heart disease) CAD (coronary artery disease) Surgical History Status post double vessel coronary artery bypass History of open heart surgery History of brachytherapy Family History Other Family history of acute congestive heart failure Family history of acute heart failure Family history of hyperlipidemia Family history of hypertension Social History Smoking Status: Former smoker tobacco type: cigarettes packs per day: 1 how long ago did patient quit smokin second hand exposure: No alcohol intake: former substance use type: denies use current occupational status: retired Travel in the last 8 weeks?: None household members: spouse housing: house current occupational exposures/hazards: No caffeine: Yes Have you lived/traveled outside US in past 30 days?: No Contact w/someone who lives/traveled outside US past 30 days?: No Exposure to someone with infectious disease in past 14 days?: No Do you have a fever (greater than 100.4 F or 38 C)?: No Have you tested positive for COVID-19?: No Exposed to someone with COVID-19 in past 14 days?: No Do you have a sore throat?: No Do you have a cough?: No Do you have any weakness?: No Do you have any diarrhea?: No Are you experiencing any unusual bleeding?: Yes Do you have any muscle aches/pain?: No Do you have any abdominal pain?: No Are you experiencing loss of taste or smell?: No Review of Systems Review of Systems Review of systems:: pertinent systems reviewed and negative unless documented below *Cardiovascular Cardiovascular: Denies chest pain and Reports dyspnea on exertion *Respiratory Respiratory: Reports dyspnea on exertion *Gastrointestinal Gastrointestinal: Reports hematochezia Exam Data for Last 24 hours Vital signs and Labs for Last 24 Hours: Temp Pulse Resp BP Pulse Ox O2 Del Method 97.9 F 70 18 103/60 L 98 Room Air 06/25/24 10:29 06/25/24 12:30 06/25/24 11:30 06/25/24 12:30 06/25/24 12:30 06/25/24 11:00 Laboratory Results - last 24 hr 06/25/24 10:34: WBC 8.4, RBC 4.52 L, Hgb 14.0 L, Hct 42.5, MCV 94.0, MCH 31.0, MCHC 32.9, RDW 14.7, Plt Count 211, MPV 9.9, Neut % (Auto) 70.9, Lymph % (Auto) 18.4, [place] % (Auto) 6.7, Eos % (Auto) 1.1, Baso % (Auto) 0.5, Neut # (Auto) 6.0, Lymph # (Auto) 1.5, [place] # (Auto) 0.6, Eos # (Auto) 0.1, Baso # (Auto) 0.0, Sodium 141, Potassium 3.9, Chloride 106, Carbon Dioxide 28, Anion Gap 10.9, BUN 22 H, Creatinine 1.20, Estimated Creat Clear 49, Estimated GFR 59, Est GFR ( Amer) 71, Glucose 97, Calcium 9.8, Total Bilirubin 0.8, AST 32, ALT 17, Alkaline Phosphatase 79, Troponin I 1.66 H, NT-Pro-B Natriuret Pep 3570 H, Total Protein 6.8, Albumin 4.0, Globulin 2.8, Albumin/Globulin Ratio 1.4, Lipase 50 06/25/24 10:50: Lactate 1.4, Blood Type O Positive, Antibody Screen Negative 06/25/24 11:34: Urine Color Yellow, Urine Appearance Clear, Urine pH 6.0, Ur Specific [place] 1.020, Urine Protein Negative, Urine Glucose (UA) Negative, Urine Ketones Negative, Urine Blood Negative, Urine Nitrate Negative, Urine Bilirubin Negative, Urine Urobilinogen 0.2, Ur Leukocyte Esterase Negative, Urine RBC None, Urine WBC None, Ur Squamous Epith Cells None, Urine Bacteria None 06/25/24 12:16: Stool Occult Blood Positive A 06/25/24 12:36: Troponin I 1.53 H I & O for Last 24 hours: Intake & Output 06/23/24 06/24/24 06/25/24 06/26/24 11:59 11:59 11:59 11:59 Weight 147 lb Constitutional Constitutional: no acute distress *Routine Respiratory Exam Respiratory: Present CTA bilaterally *Routine Cardiovascular Exam Cardiovascular: Present RRR and murmur; Absent gallop or rubs *Routine Extremities Exam Extremities: Absent edema *Routine Neurological Exam Neurological: Present alert, oriented X3 and CN II-XII intact Meds Home Medications and Allergies Home Medications ?Medication ?Instructions ?Recorded ?Confirmed ?Type aspirin 81 mg tablet,delayed 81 mg PO DAILY 01/21/22 06/25/24 History release albuterol sulfate 90 mcg/actuation 2 inh inhalation Q6HP PRN 09/21/23 06/25/24 History aerosol inhaler shortness of breath or wheezing clopidogrel 75 mg tablet 75 mg PO DAILY 09/21/23 06/25/24 History nitroglycerin 0.4 mg sublingual 0.4 mg sublingual Q5MINP PRN chest 02/22/24 06/25/24 Rx tablet pain #30 tabs atorvastatin 80 mg tablet 80 mg PO HS #90 tabs 03/13/24 06/25/24 Rx ranolazine 1,000 mg 1,000 mg PO BID 30 days #180 tabs 03/13/24 06/25/24 Rx tablet,extended release,12 hr isosorbide mononitrate 30 mg 30 mg PO DAILY #90 tabs 05/13/24 06/25/24 Rx tablet,extended release 24 hr metoprolol succinate 25 mg 25 mg PO DAILY #90 tabs 05/13/24 06/25/24 Rx tablet,extended release 24 hr azelastine 137 mcg-fluticasone 50 1 spray intranasal BID PRN 06/25/24 06/25/24 History mcg/spray nasal spray ALLERGIES denosumab 60 mg/mL subcutaneous 60 mg SQ DIRECTED 06/25/24 06/25/24 History syringe (Prolia) furosemide 40 mg tablet 40 mg PO DIRECTED Fluid 06/25/24 06/25/24 History spironolactone 25 mg tablet 25 mg PO DIRECTED Fluid 06/25/24 06/25/24 History tiotropium 2.5 mcg-olodaterol 2.5 2 puff inhalation DAILY Copd 06/25/24 06/25/24 History mcg/actuation mist for inhalation (Stiolto Respimat) New Prescriptions to Start Prescriptions: Allergies Allergy/AdvReac Type Severity Reaction Status Date / Time No Known Allergies Allergy Verified 04/23/24 10:54 Assessment and Plan *Assessment and plan (1) Melena: Status: Acute Category: Medical Code(s): K92.1 - Melena (2) Non-ST elevation VA (NSTEMI): Status: Acute Category: Medical Code(s): I21.4 - Non-ST elevation (NSTEMI) myocardial infarction (3) Fatigue: Status: Acute Qualifiers: Fatigue type: other Qualified Code(s): R53.83 - Other fatigue Category: Medical Code(s): R53.83 - Other fatigue (4) COPD (chronic obstructive pulmonary disease): Status: Acute Qualifiers: COPD type: emphysema Emphysema type: centrilobular Qualified Code(s): J43.2 - Centrilobular emphysema Category: Medical Code(s): J44.9 - Chronic obstructive pulmonary disease, unspecified (5) History of lung cancer: Status: Chronic Category: Medical Code(s): Z85.118 - Personal history of other malignant neoplasm of bronchus and lung (6) HLD (hyperlipidemia): Status: Chronic Qualifiers: Hyperlipidemia type: mixed hyperlipidemia Qualified Code(s): E78.2 - Mixed hyperlipidemia Category: Medical Code(s): E78.5 - Hyperlipidemia, unspecified (7) PAD (peripheral artery disease): Status: Chronic Category: Medical Code(s): I73.9 - Peripheral vascular disease, unspecified (8) CAD (coronary artery disease): Status: Chronic Qualifiers: Associated angina: with other forms of angina Coronary Disease-Associated Artery/Lesion type: [place] artery [place] vs. transplanted heart: [place] heart Qualified Code(s): I25.118 - Atherosclerotic heart disease of [place] coronary artery with other forms of angina pectoris Category: Medical Code(s): I25.10 - Atherosclerotic heart disease of [place] coronary artery without angina pectoris Plan 1. GI bleed with hemoglobin currently at 14 -Proceed with endoscopy tomorrow -stop aspirin 2. Known CAD with elevated troponins with abnormal EKG (new inferior ST segment depression) consistent with non-STEMI felt due to demand ischemia of the RCA distribution. Noted to have collateral flow to distal RCA on recent LHC in 03/2024. -Plan for cardiac cath after endoscopy and prior to discharge - Continue isosorbide, metoprolol, Ranexa and plavix. Stop Aspirin 3. COPD with history of lung cancer 2021 -followed by [facility] 4. Hyperlipidemia -continue statin 5. History of HFimpEF -continue lasix and spironolactone 6. History of PAD Echo today is essentially unchanged from 02/2024 with EF about 50% and moderate MR. OK for endoscopy tomorrow Will plan cardiac cath prior to discharge
--- NOTE | 2024-06-25 16:24 | P.CONS_ITS ---
History of Present Illness *Admission Date: 06/25/24 *Reason for visit:: Melena/hematochezia *History of present illness: Mr. Noriega is a 78-year-old gentleman who presents with rectal bleeding. The patient reports 2 bouts of hematochezia this morning that filled the commode. There was no black stools or melena. He does have a history of very mild hemorrhoidal bleeding and does have hemorrhoid prolapse. He is on Plavix and aspirin. He did have the bleeding this morning that filled the commode and was alarming. The patient did have a colonoscopy with Sofie Hoyt MD in August 2021 and had 2 polyps (tubular adenomas x 2) which were removed. There was no report of any diverticulosis on this report. 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 He reports no abdominal pain. He does have some chronic constipation. He does state that both bouts of bleeding this morning were accompanied with a bowel movement. He has had no unintentional weight loss. The patient's hemoglobin hematocrit are fairly stable with hemoglobin 14.0 and hematocrit 42.5 and this is unchanged from labs in April 2024. [facility] Disclaimer: The information contained in this section may have been updated after the patient was seen, as this information can be updated by other users. Medical History (Updated 06/25/24 @ 16:47 by Deacon Miranda II, MD) Non-ST elevation [place] (NSTEMI) ST elevation [place] (STEMI) Upper respiratory infection Cervical pain (neck) Encounter for monitoring diuretic therapy Dyspnea on exertion History of smoking 30 or more pack years Age related osteoporosis Lung cancer Pain in right leg Claudication of right lower extremity PAD (peripheral artery disease) Dizziness HHD (hypertensive heart disease) CAD (coronary artery disease) Surgical History Status post double vessel coronary artery bypass History of open heart surgery History of brachytherapy Family History Other Family history of acute congestive heart failure Family history of acute heart failure Family history of hyperlipidemia Family history of hypertension Social History Smoking Status: Former smoker tobacco type: cigarettes packs per day: 1 how long ago did patient quit smokin second hand exposure: No alcohol intake: former substance use type: denies use current occupational status: retired Travel in the last 8 weeks?: None household members: spouse housing: house current occupational exposures/hazards: No caffeine: Yes Have you lived/traveled outside US in past 30 days?: No Contact w/someone who lives/traveled outside US past 30 days?: No Exposure to someone with infectious disease in past 14 days?: No Do you have a fever (greater than 100.4 F or 38 C)?: No Have you tested positive for COVID-19?: No Exposed to someone with COVID-19 in past 14 days?: No Do you have a sore throat?: No Do you have a cough?: No Do you have any weakness?: No Do you have any diarrhea?: No Are you experiencing any unusual bleeding?: Yes Do you have any muscle aches/pain?: No Do you have any abdominal pain?: No Are you experiencing loss of taste or smell?: No Meds Home Medications and Allergies Home Medications ?Medication ?Instructions ?Recorded ?Confirmed ?Type aspirin 81 mg tablet,delayed 81 mg PO DAILY 01/21/22 06/25/24 History release albuterol sulfate 90 mcg/actuation 2 inh inhalation Q6HP PRN 09/21/23 06/25/24 History aerosol inhaler shortness of breath or wheezing clopidogrel 75 mg tablet 75 mg PO DAILY 09/21/23 06/25/24 History nitroglycerin 0.4 mg sublingual 0.4 mg sublingual Q5MINP PRN chest 02/22/24 06/25/24 Rx tablet pain #30 tabs atorvastatin 80 mg tablet 80 mg PO HS #90 tabs 03/13/24 06/25/24 Rx ranolazine 1,000 mg 1,000 mg PO BID 30 days #180 tabs 03/13/24 06/25/24 Rx tablet,extended release,12 hr isosorbide mononitrate 30 mg 30 mg PO DAILY #90 tabs 05/13/24 06/25/24 Rx tablet,extended release 24 hr metoprolol succinate 25 mg 25 mg PO DAILY #90 tabs 05/13/24 06/25/24 Rx tablet,extended release 24 hr azelastine 137 mcg-fluticasone 50 1 spray intranasal BID PRN 06/25/24 06/25/24 History mcg/spray nasal spray ALLERGIES denosumab 60 mg/mL subcutaneous 60 mg SQ DIRECTED 06/25/24 06/25/24 History syringe (Prolia) furosemide 40 mg tablet 40 mg PO DIRECTED Fluid 06/25/24 06/25/24 History spironolactone 25 mg tablet 25 mg PO DIRECTED Fluid 06/25/24 06/25/24 History tiotropium 2.5 mcg-olodaterol 2.5 2 puff inhalation DAILY Copd 06/25/24 06/25/24 History mcg/actuation mist for inhalation (Stiolto Respimat) New Prescriptions to Start Prescriptions: Allergies Allergy/AdvReac Type Severity Reaction Status Date / Time No Known Allergies Allergy Verified 04/23/24 10:54 Exam (Inpt) Vital signs and Labs for Last 24 Hours: Temp Pulse Resp BP Pulse Ox O2 Del Method 98.0 F 70 18 104/62 L 98 Room Air 06/25/24 14:30 06/25/24 14:30 06/25/24 14:30 06/25/24 14:30 06/25/24 12:30 06/25/24 15:30 Laboratory Results - last 24 hr 06/25/24 10:34: WBC 8.4, RBC 4.52 L, Hgb 14.0 L, Hct 42.5, MCV 94.0, MCH 31.0, MCHC 32.9, RDW 14.7, Plt Count 211, MPV 9.9, Neut % (Auto) 70.9, Lymph % (Auto) 18.4, [place] % (Auto) 6.7, Eos % (Auto) 1.1, Baso % (Auto) 0.5, Neut # (Auto) 6.0, Lymph # (Auto) 1.5, [place] # (Auto) 0.6, Eos # (Auto) 0.1, Baso # (Auto) 0.0, Sodium 141, Potassium 3.9, Chloride 106, Carbon Dioxide 28, Anion Gap 10.9, BUN 22 H, Creatinine 1.20, Estimated Creat Clear 49, Estimated GFR 59, Est GFR ( Amer) 71, Glucose 97, Calcium 9.8, Total Bilirubin 0.8, AST 32, ALT 17, Alkaline Phosphatase 79, Troponin I 1.66 H, NT-Pro-B Natriuret Pep 3570 H, Total Protein 6.8, Albumin 4.0, Globulin 2.8, Albumin/Globulin Ratio 1.4, Lipase 50 06/25/24 10:50: Lactate 1.4, Blood Type O Positive, Antibody Screen Negative 06/25/24 11:34: Urine Color Yellow, Urine Appearance Clear, Urine pH 6.0, Ur Specific [place] 1.020, Urine Protein Negative, Urine Glucose (UA) Negative, Urine Ketones Negative, Urine Blood Negative, Urine Nitrate Negative, Urine Bilirubin Negative, Urine Urobilinogen 0.2, Ur Leukocyte Esterase Negative, Urine RBC None, Urine WBC None, Ur Squamous Epith Cells None, Urine Bacteria None 06/25/24 12:16: Stool Occult Blood Positive A 06/25/24 12:36: Troponin I 1.53 H I & O for Labs for Last 24 Hours: Intake & Output 06/22/24 06/23/24 06/24/24 06/25/24 23:59 23:59 23:59 23:59 Weight 147 lb Comments:: Normoactive bowel sounds, soft, nontender, nondistended, benign abdomen Results Labs 06/25/24 10:34 06/25/24 10:34 Labs: Laboratory Results - last 24 hr 06/25/24 10:34: WBC 8.4, RBC 4.52 L, Hgb 14.0 L, Hct 42.5, MCV 94.0, MCH 31.0, MCHC 32.9, RDW 14.7, Plt Count 211, MPV 9.9, Neut % (Auto) 70.9, Lymph % (Auto) 18.4, [place] % (Auto) 6.7, Eos % (Auto) 1.1, Baso % (Auto) 0.5, Neut # (Auto) 6.0, Lymph # (Auto) 1.5, [place] # (Auto) 0.6, Eos # (Auto) 0.1, Baso # (Auto) 0.0, Sodium 141, Potassium 3.9, Chloride 106, Carbon Dioxide 28, Anion Gap 10.9, BUN 22 H, Creatinine 1.20, Estimated Creat Clear 49, Estimated GFR 59, Est GFR ( Amer) 71, Glucose 97, Calcium 9.8, Total Bilirubin 0.8, AST 32, ALT 17, Alkaline Phosphatase 79, Troponin I 1.66 H, NT-Pro-B Natriuret Pep 3570 H, Total Protein 6.8, Albumin 4.0, Globulin 2.8, Albumin/Globulin Ratio 1.4, Lipase 50 06/25/24 10:50: Lactate 1.4, Blood Type O Positive, Antibody Screen Negative 06/25/24 11:34: Urine Color Yellow, Urine Appearance Clear, Urine pH 6.0, Ur Specific [place] 1.020, Urine Protein Negative, Urine Glucose (UA) Negative, Urine Ketones Negative, Urine Blood Negative, Urine Nitrate Negative, Urine Bilirubin Negative, Urine Urobilinogen 0.2, Ur Leukocyte Esterase Negative, Urine RBC None, Urine WBC None, Ur Squamous Epith Cells None, Urine Bacteria None 06/25/24 12:16: Stool Occult Blood Positive A 06/25/24 12:36: Troponin I 1.53 H Assessment and Plan *Assessment and plan (1) Hematochezia: Status: Acute Category: Medical Code(s): K92.1 - Melena (2) Rectal bleeding: Status: Acute Category: Medical Code(s): K62.5 - Hemorrhage of anus and rectum Plan 1. GI bleeding/rectal bleeding. I do suspect that this is lower GI bleed especially since it was accompanied with a bowel movement. He does not describe melena. However, with his bump in BUN, I will plan both EGD and colonoscopy to evaluate for etiology of bleed. His hemoglobin/hematocrit are stable but are likely to decline some with rehydration. As long as he is cleared by cardiology, we will plan to do panendoscopy in the morning. He did have a bump in his troponins and BNP. This could actually be hemorrhoidal bleeding especially with his hemorrhoid prolapse presently and prior hemorrhoidal minor bleeding. His last colonoscopy (Sofie Hoyt MD) in 2021 did not report diverticular disease.
[2024-06-25] MEDS: SODIUM CHLORIDE 0.9% 10ML VIAL 10 ML IV ×2 (16:56→20:22)
[2024-06-25] MEDS: PANTOPRAZOLE 40MG VIAL 40 MG IV ×2 (16:56→20:22)
[2024-06-25] MEDS: LACTATED RINGERS 1000ML 1,000 ML 75 ML IV (16:56)
[2024-06-25 17:19] LABS: Troponin I 1.54 ng/ml (0.00-0.034)
--- NOTE | 2024-06-25 17:49 | PC.NURSE ---
Pt is A&Ox4. Vital signs stable tolerating room air. IV fluids infusing. NPO at midnight for scheduled EGD and colonoscopy tomorrow. Consent signed in chart. First dose of bowel prep started per APR. Pt ambulates independently to bathroom. No complaints of pain. Pt resting supine comfortably in bed with no further complaints voiced at this time. Call light within reach.
[2024-06-25 18:09] LABS: Hematocrit 38.8 % (42.0-52.0)
[2024-06-25 18:21] LABS: Hemoglobin 12.5 g/dL (14.1-18.0)
[2024-06-25] MEDS: PEG-ELECTROLYTE SOLN 4000ML BOTTLE 2000 ML PO (18:28)
--- NOTE | 2024-06-25 18:41 | PC.NURSE ---
per hospitalist, okay to hold IV fluids at this time due to pt apprehension about making it to the bathroom post bowel prep while fluids are hooked.
[2024-06-25] MEDS: ATORVASTATIN 40MG TABLET 80 MG PO (20:21)
[2024-06-25] MEDS: RANOLAZINE 500MG ER TABLET 1000 MG PO (20:22)
--- NOTE | 2024-06-25 21:43 | EXP.HP ---
History of Present Illness *Admission Date: 06/25/24 *History of present illness: From Dr. Miranda note: Mr. Noriega is a 78-year-old gentleman who presents with rectal bleeding. The patient reports 2 bouts of hematochezia this morning that filled the commode. There was no black stools or melena. He does have a history of very mild hemorrhoidal bleeding and does have hemorrhoid prolapse. He is on Plavix and aspirin. He did have the bleeding this morning that filled the commode and was alarming. The patient did have a colonoscopy with Sofie Hoyt MD in August 2021 and had 2 polyps (tubular adenomas x 2) which were removed. There was no report of any diverticulosis on this report. 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 He reports no abdominal pain. He does have some chronic constipation. He does state that both bouts of bleeding this morning were accompanied with a bowel movement. He has had no unintentional weight loss. The patient's hemoglobin hematocrit are fairly stable with hemoglobin 14.0 and hematocrit 42.5 and this is unchanged from labs in April 2024. Case discussed with ED provider and decision was made to admit patient for GI bleed. [facility] Disclaimer: The information contained in this section may have been updated after the patient was seen, as this information can be updated by other users. Medical History (Updated 06/25/24 @ 16:47 by Deacon Miranda II, MD) Non-ST elevation [place] (NSTEMI) ST elevation [place] (STEMI) Upper respiratory infection Cervical pain (neck) Encounter for monitoring diuretic therapy Dyspnea on exertion History of smoking 30 or more pack years Age related osteoporosis Lung cancer Pain in right leg Claudication of right lower extremity PAD (peripheral artery disease) Dizziness HHD (hypertensive heart disease) CAD (coronary artery disease) Surgical History Status post double vessel coronary artery bypass History of open heart surgery History of brachytherapy Family History Other Family history of acute congestive heart failure Family history of acute heart failure Family history of hyperlipidemia Family history of hypertension Social History Smoking Status: Former smoker tobacco type: cigarettes packs per day: 1 how long ago did patient quit smokin second hand exposure: No alcohol intake: former substance use type: denies use current occupational status: retired Travel in the last 8 weeks?: None household members: spouse housing: house current occupational exposures/hazards: No caffeine: Yes Have you lived/traveled outside US in past 30 days?: No Contact w/someone who lives/traveled outside US past 30 days?: No Exposure to someone with infectious disease in past 14 days?: No Do you have a fever (greater than 100.4 F or 38 C)?: No Have you tested positive for COVID-19?: No Exposed to someone with COVID-19 in past 14 days?: No Do you have a sore throat?: No Do you have a cough?: No Do you have any weakness?: No Do you have any diarrhea?: No Are you experiencing any unusual bleeding?: Yes Do you have any muscle aches/pain?: No Do you have any abdominal pain?: No Are you experiencing loss of taste or smell?: No Other Medical History Have you received the Flu Vaccine for this season: Yes Have you received the Pneumonia Vaccine: Yes Meds Home Medications and Allergies Home Medications ?Medication ?Instructions ?Recorded ?Confirmed ?Type aspirin 81 mg tablet,delayed 81 mg PO DAILY 01/21/22 06/25/24 History release albuterol sulfate 90 mcg/actuation 2 inh inhalation Q6HP PRN 09/21/23 06/25/24 History aerosol inhaler shortness of breath or wheezing clopidogrel 75 mg tablet 75 mg PO DAILY 09/21/23 06/25/24 History nitroglycerin 0.4 mg sublingual 0.4 mg sublingual Q5MINP PRN chest 02/22/24 06/25/24 Rx tablet pain #30 tabs atorvastatin 80 mg tablet 80 mg PO HS #90 tabs 03/13/24 06/25/24 Rx ranolazine 1,000 mg 1,000 mg PO BID 30 days #180 tabs 03/13/24 06/25/24 Rx tablet,extended release,12 hr isosorbide mononitrate 30 mg 30 mg PO DAILY #90 tabs 05/13/24 06/25/24 Rx tablet,extended release 24 hr metoprolol succinate 25 mg 25 mg PO DAILY #90 tabs 05/13/24 06/25/24 Rx tablet,extended release 24 hr azelastine 137 mcg-fluticasone 50 1 spray intranasal BID PRN 06/25/24 06/25/24 History mcg/spray nasal spray ALLERGIES denosumab 60 mg/mL subcutaneous 60 mg SQ DIRECTED 06/25/24 06/25/24 History syringe (Prolia) furosemide 40 mg tablet 40 mg PO DIRECTED Fluid 06/25/24 06/25/24 History spironolactone 25 mg tablet 25 mg PO DIRECTED Fluid 06/25/24 06/25/24 History tiotropium 2.5 mcg-olodaterol 2.5 2 puff inhalation DAILY Copd 06/25/24 06/25/24 History mcg/actuation mist for inhalation (Stiolto Respimat) New Prescriptions to Start Prescriptions: Allergies Allergy/AdvReac Type Severity Reaction Status Date / Time No Known Allergies Allergy Verified 04/23/24 10:54 Exam Data for Last 24 hours Vital signs and Labs for Last 24 Hours: Temp Pulse Resp BP Pulse Ox O2 Del Method 98.6 F 104 H 14 100/67 L 99 Room Air 06/25/24 20:00 06/25/24 20:00 06/25/24 20:00 06/25/24 20:00 06/25/24 20:00 06/25/24 20:00 Laboratory Results - last 24 hr 06/25/24 10:34: WBC 8.4, RBC 4.52 L, Hgb 14.0 L, Hct 42.5, MCV 94.0, MCH 31.0, MCHC 32.9, RDW 14.7, Plt Count 211, MPV 9.9, Neut % (Auto) 70.9, Lymph % (Auto) 18.4, [place] % (Auto) 6.7, Eos % (Auto) 1.1, Baso % (Auto) 0.5, Neut # (Auto) 6.0, Lymph # (Auto) 1.5, [place] # (Auto) 0.6, Eos # (Auto) 0.1, Baso # (Auto) 0.0, Sodium 141, Potassium 3.9, Chloride 106, Carbon Dioxide 28, Anion Gap 10.9, BUN 22 H, Creatinine 1.20, Estimated Creat Clear 49, Estimated GFR 59, Est GFR ( Amer) 71, Glucose 97, Calcium 9.8, Total Bilirubin 0.8, AST 32, ALT 17, Alkaline Phosphatase 79, Troponin I 1.66 H, NT-Pro-B Natriuret Pep 3570 H, Total Protein 6.8, Albumin 4.0, Globulin 2.8, Albumin/Globulin Ratio 1.4, Lipase 50 06/25/24 10:50: Lactate 1.4, Blood Type O Positive, Antibody Screen Negative 06/25/24 11:34: Urine Color Yellow, Urine Appearance Clear, Urine pH 6.0, Ur Specific [place] 1.020, Urine Protein Negative, Urine Glucose (UA) Negative, Urine Ketones Negative, Urine Blood Negative, Urine Nitrate Negative, Urine Bilirubin Negative, Urine Urobilinogen 0.2, Ur Leukocyte Esterase Negative, Urine RBC None, Urine WBC None, Ur Squamous Epith Cells None, Urine Bacteria None 06/25/24 12:16: Stool Occult Blood Positive A 06/25/24 12:36: Troponin I 1.53 H 06/25/24 16:35: Troponin I 1.54 H 06/25/24 17:50: Hgb 12.5 L D, Hct 38.8 L I & O for Last 24 hours: Intake & Output 06/22/24 06/23/24 06/24/24 06/25/24 23:59 23:59 23:59 23:59 Output Total 0 / 0 Balance 0 / 0 Weight 64.41 kg Constitutional Constitutional: no acute distress *Routine HEENT Exam Head: Present normocephalic Eye: Present EOMI and PERRL ENT: Present mucous membranes moist *Routine Neck Exam Neck: Present supple; Absent lymphadenopathy *Routine Respiratory Exam Respiratory: Present CTA bilaterally *Routine Cardiovascular Exam Cardiovascular: Present RRR *Routine Abdominal Exam Abdominal: Present soft and normoactive bowel sounds; Absent tenderness *Routine Rectal Exam Rectal:: deferred *Routine Genitalia Exam Genitalia:: deferred *Routine Extremities Exam Extremities: Absent cyanosis, clubbing or edema *Routine Skin Exam Skin: Present warm; Absent rash *Routine Neurological Exam Neurological: Present alert and oriented X3 Assessment and Plan *Assessment and plan (1) Rectal bleeding: Status: Acute Category: Medical Code(s): K62.5 - Hemorrhage of anus and rectum Plan Carlo Hubbard is a 78-year-old male who presented with hematochezia and was admitted for GI bleed. #Hematochezia #GI bleed #History of hemorrhoids ? Has had 2 episodes of hematochezia this morning. No previous events like this. ? No recent changes in medication, but does endorse history of external hemorrhoids with worsening constipation over the past week. ? Initial hemoglobin 14.2, blood pressure low normal. BUN also elevated to 22, above baseline. No abdominal pain. ? CT abdomen/pelvis shows sigmoid, rectal colitis and significant iliofemoral stenosis. ? GI consulted, plan for EGD and colonoscopy tomorrow. N.p.o. at midnight. Bowel prep overnight. ? IV Protonix 40 mg twice daily. ? Continuous cardiac telemetry. #NSTEMI type II #Chest pain #CAD with stents #Hypertension ? Initial troponin 1.66, EKG without acute ischemic changes. No chest pain, shortness of breath. Chronically elevated troponin with complex cardiac history with stents. ? Cardiology consulted, planning for LHC before discharge. ? Hold DAPT in setting of GI bleed. ? Continue atorvastatin 80 mg, metoprolol succinate 25 mg, ranolazine 1000 mg twice daily, Imdur 30 mg. ? Patient has had lung cancer before s/p extensive chemo and radiation therapy, and cardiac events started thereafter. I suspect there might be some vasospastic sequelae from scar tissue from radiation therapy, can consider switching to diltiazem in follow-up with cardiology. #Hypertension #HFimpEF ? Continue home spironolactone, Lasix 40 mg. Currently euvolemic. #COPD ? Continue home LAMA LABA. Full code DVT prophylaxis: Hold AC due to GI bleed
[2024-06-26] VITALS (16 sets, daily range): BP systolic 89–115; BP diastolic 51–68; PULSE 62–90; RESP 14–20; TEMP 36.1–36.9; O2SAT 90–99; BMI 20.7
[2024-06-26] MEDS: PEG-ELECTROLYTE SOLN 4000ML BOTTLE 2000 ML PO (00:08)
--- NOTE | 2024-06-26 03:05 | PC.NURSE ---
Patient is alert and oriented x4. Friends and family visited him yesterday evening and later departed at bedtime. He was observed to have eyes closed, respirations even and unlabored on room air, and no apparent distress throughout the majority of the night. Patient has ambulated independently to the bathroom several times with a sense of urgency to have liquified bowel movements from the consumption of GoLytely bowel prep solution. The second half of the GoLytely solution was administered around midnight this shift per MAR; the first half was administered yesterday evening during the previous shift. Aside from consuming the bowel prep, he has remained NPO since midnight from any other oral intake. The patient did report having one unmeasured emesis episode after completing the entire GoLytely solution. However, he did not want to take anything for his nausea/vomiting episode after an offer. Emesis color was clear, and the consistency was like water (no solid pieces were noted). He has not had any further reports of nausea/vomiting episodes. Other scheduled medications were administered as appropriately per APR. Lactated Ringers infusion was also discontinued during this shift. Auscultation of his heart, lungs, and bowel sounds were within normal findings. At this time, the patient is resting in bed without any further complaints. No acute changes noted thus far. Call light within reach.
[2024-06-26 06:48] LABS: Basophils % 0.5 % (0.1-2.0); Eosinophils # 0.1 Kmm3 (0.0-0.4); Eosinophils % 0.9 % (0.1-12.0); Hematocrit 35.2 % (42.0-52.0); Hemoglobin 11.3 g/dL (14.1-18.0); Immature Granulocytes # 0.19 10^3uL; Lymphocytes # 1.1 K/mm3 (0.7-4.5); Lymphocytes % 17.6 % (10-50); Mean Corpuscular HGB Conc 32.1 g/dL (31.8-35.4); Mean Corpuscular Hemoglobin 29.4 pg (27.0-31.2); Mean Corpuscular Volume 91.7 fl (80-94); Mean Platelet Volume 10.5 fl (7.4-10.4); Monocytes # 0.4 K/mm3 (0.1-1.0); Monocytes % 6.4 % (1.7-9.3); Neutrophils # 4.6 K/mm3 (1.8-7.8); Neutrophils % 71.6 % (37.0-80.0); Nucleated Red Blood Cells # 0 10^3/uL; Nucleated Red Blood Cells % 0 %; Platelet Count 166 K/mm3 (142-424); Red Blood Count 3.84 M/mm3 (4.60-6.20); Red Cell Distribution Width 14.7 % (11.5-17.5); Red Cell Distribution Width-SD 49.1 fL; White Blood Count 6.4 K/mm3 (4.8-10.8)
[2024-06-26 07:05] LABS: Alanine Aminotransferase 12 U/L (12-78); Albumin Level 3.2 g/dl (3.5-5.0); Albumin/Globulin Ratio 1.3 (1.1-1.8); Alkaline Phosphatase 79 U/L (38-126); Anion Gap 7.6 mEq/L (5-15); Aspartate Amino Transferase 28 U/L (17-59); Bilirubin,Total 0.8 mg/dl (0.2-1.3); Blood Urea Nitrogen 16 mg/dl (9-20); Calcium 8.8 mg/dl (8.4-10.2); Carbon Dioxide 28 mmol/L (22.0-30.0); Chloride 103 mmol/L (98-107); Creatinine Clearance Estimated 50 mL/min (50-200); Estimated Glomerular Filt Rate 65 ml/min (>60); GFR (African American) 79 ML/MIN (>60); Globulin 2.4 g/dL (1.3-3.2); Glucose 88 mg/dl (74-100); Magnesium 1.7 mg/dl (1.6-2.3); Potassium 3.6 mmoL/L (3.5-5.1); Sodium 135 mmol/L (136-145); Total Protein,Serum 5.6 g/dl (6.3-8.2)
--- NOTE | 2024-06-26 07:37 | P.PCN_ITS ---
[facility] Procedure Note Date: 06/26/24 Time: 07:52 Procedure Note:: Upper Endoscopy Procedure Report: Esophagogastroduodenoscopy with cold biopsies Endoscopost: Deacon Miranda II, MD Referring Physician: Carl Tate DO Date of Procedure: June 26, 2024 Equipment: Olympus GIF 190 standard upper endoscope Sedation: MAC sedation Indications: Mr. Noriega is a 78-year-old gentleman who has been admitted with rectal bleeding. He is here this morning for inpatient diagnostic EGD and colonoscopy. The patient reports 2 bouts of hematochezia yesterday morning that filled the commode. There was no black stools or melena. He does have a history of very mild hemorrhoidal bleeding and does have hemorrhoid prolapse. He has been on Plavix and aspirin. He did have the bleeding yesterday morning that filled the commode and was alarming. The patient did have a colonoscopy with Sofie Hoyt MD in August 2021 and had 2 polyps (tubular adenomas x 2) which were removed. There was no report of any diverticulosis on this report. 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 He reports no abdominal pain. He does have some chronic constipation. He does state that both bouts of bleeding this morning were accompanied with a bowel movement. He has had no unintentional weight loss. The patient's hemoglobin hematocrit were stable with hemoglobin 14.0 and hematocrit 42.5 on admission and this was unchanged from labs in April 2024. With hydration, his hemoglobin and hematocrit this morning are 11.3 and 35.2. Procedure: Prior to the procedure, a history and physical exam was performed, and patient's medications and allergies were reviewed. The risks, benefits and alternatives of the sedation and procedure were discussed with the patient. All questions were answered and informed consent was obtained. The patient was brought to the procedure room. Patient identification and proposed procedure were verified by the physician and the nurse. The patient was placed in a left lateral decubitus position and the scope was passed under direct vision. Throughout the procedure , the patient's blood pressure, pulse, and oxygen saturations were monitored continuously. The upper GI endoscopy was accomplished without difficulty. The patient tolerated the procedure well. Findings: The scope was passed directly into the upper esophagus and advanced to the third portion of the duodenum. The post bulbar duodenum had a pedunculated lipoma/submucosal lesion in the second portion with normal overlying surface mucosa. The conniventes and mucosa were otherwise normal with normal duodenal bulb. The scope was withdrawn through a normal duodenal bulb and pylorus into the stomach. There was some mild antral gastropathy. The body and fundus of the stomach were grossly normal. There were no ulcerations or erosions within the stomach or duodenum. Upon retroflexion there was no hiatal hernia. Cold biopsies were taken from the lesser curvature to rule out H. pylori. The scope was then withdrawn into the esophagus. There was no evidence of reflux esophagitis and the remainder of the esophageal mucosa was normal. Impression: 1. Duodenal pedunculated submucosal lesion (12 mm)?probable lipoma 2. Mild antral gastropathy Plan: There is no etiology for the patient's GI bleed in the upper digestive tract. I will proceed with diagnostic colonoscopy.
--- NOTE | 2024-06-26 07:41 | P.PNANES_ITS ---
[facility] Disclaimer: The information contained in this section may have been updated after the patient was seen, as this information can be updated by other users. Medical History Non-ST elevation [place] (NSTEMI) ST elevation [place] (STEMI) Upper respiratory infection Cervical pain (neck) Encounter for monitoring diuretic therapy Dyspnea on exertion History of smoking 30 or more pack years Age related osteoporosis Lung cancer Pain in right leg Claudication of right lower extremity PAD (peripheral artery disease) Dizziness HHD (hypertensive heart disease) CAD (coronary artery disease) Surgical History Status post double vessel coronary artery bypass History of open heart surgery History of brachytherapy Family History Other Family history of acute congestive heart failure Family history of acute heart failure Family history of hyperlipidemia Family history of hypertension Social History Smoking Status: Former smoker tobacco type: cigarettes packs per day: 1 how long ago did patient quit smokin second hand exposure: No alcohol intake: former substance use type: denies use current occupational status: retired Travel in the last 8 weeks?: None household members: spouse housing: house current occupational exposures/hazards: No caffeine: Yes Have you lived/traveled outside US in past 30 days?: No Contact w/someone who lives/traveled outside US past 30 days?: No Exposure to someone with infectious disease in past 14 days?: No Do you have a fever (greater than 100.4 F or 38 C)?: No Have you tested positive for COVID-19?: No Exposed to someone with COVID-19 in past 14 days?: No Do you have a sore throat?: No Do you have a cough?: No Do you have any weakness?: No Do you have any diarrhea?: No Are you experiencing any unusual bleeding?: Yes Do you have any muscle aches/pain?: No Do you have any abdominal pain?: No Are you experiencing loss of taste or smell?: No [facility] Anesthesia Checklist Patient Identification Patient Identification: Arm Band Structural Data Admitted From: Inpatient Planned Operative Procedure/s: EGD colonscopy Consent for Planned Operative Procedure(s) Verified: Yes Verified Documents: Surgical Consent and History and Physical NPO Status Verified Time NPO: 00:00 Additional verifications Anesthesia Reactions: No Previous Colonoscopy: Yes Airway Assessment Mallampati Score:: Class II Dentition: Good Dentition Neurological Assessment Level of Consciousness: Awake, Alert and Appropriate Hx Seizures: No Anesthesia Plan Anesthesia Risk discussed: Yes Anesthesia Plan: Verified ASA Class: III Anesthesia Type: MAC
--- NOTE | 2024-06-26 07:42 | HMH.PROCNOTE ---
[facility] Procedure Note Date: 06/26/24 Time: 08:11 Procedure Note:: Colonoscopy Procedure Report: Colonoscopy with cold snare polypectomy, monopolar coagulation/ablation and cold biopsy Endoscopist: Deacon Miranda II, MD Referring physician: Carl Tate DO Date of Procedure: June 26, 2024 Equipment: Olympus 190 variable stiffness pediatric colonoscope Sedation: MAC sedation Indication: Mr. Noriega is a 78-year-old gentleman who has been admitted with rectal bleeding. He is here this morning for inpatient diagnostic EGD and colonoscopy. The patient reports 2 bouts of hematochezia yesterday morning that filled the commode. There was no black stools or melena. He does have a history of very mild hemorrhoidal bleeding and does have hemorrhoid prolapse. He has been on Plavix and aspirin. He did have the bleeding yesterday morning that filled the commode and was alarming. The patient did have a colonoscopy with Sofie Hoyt MD in August 2021 and had 2 polyps (tubular adenomas x 2) which were removed. There was no report of any diverticulosis on this report. 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 He reports no abdominal pain. He does have some chronic constipation. He does state that both bouts of bleeding this morning were accompanied with a bowel movement. He has had no unintentional weight loss. The patient's hemoglobin hematocrit were stable with hemoglobin 14.0 and hematocrit 42.5 on admission and this was unchanged from labs in April 2024. With hydration, his hemoglobin and hematocrit this morning are 11.3 and 35.2. Procedure: Prior to the procedure, a history and physical exam was performed, and patient's medications and allergies were reviewed. The risks, benefits and alternatives of the sedation and procedure were discussed with the patient. All questions were answered and informed consent was obtained. The patient was brought to the procedure room. Patient identification and proposed procedure were verified by the physician and the nurse. The patient was placed in a left lateral decubitus position and the scope was passed under direct vision. Throughout the procedure, the patient's blood pressure, pulse, and oxygen saturations were monitored continuously. The colonoscopy was accomplished without difficulty. The patient tolerated the procedure well. Findings: On digital rectal examination there was normal rectal tone. There was internal hemorrhoidal prolapse (grade 3) the colonoscope was introduced through the anal canal to the rectum and advanced to the cecum. The ileocecal valve and appendiceal orifice were identified. The scope was advanced a short distance into the ileum which appeared grossly normal. The scope was then withdrawn into the colon. There were 2 colonic polyps (ascending x 1 (5 mm) and sigmoid x 1 (4 mm)). These were both removed via cold snare polypectomy. The the remainder of the cecum, ascending and transverse colon and mucosa were grossly normal. There were scattered diverticuli throughout the descending and sigmoid colon (LEFT colon). The proximal and mid rectum were normal. Upon retroflexion within the rectum there were 4-5 distal rectal ulcerations at the anorectal junction/crossing pectinate line with pigmented spots suggestive of recent bleeding. Forced coagulation was performed on the pigmented spots to prevent further bleeding. A cold biopsy was taken from this region. The preparation was excellent throughout with [place] Preparation Score of 9. The cecal time was 14 minutes. Impression: 1. Distal rectal ulceration with stigmata?probable solitary rectal ulcers (from straining during defecation) 2. Diminutive colonic polyps x 2 3. Left-sided diverticulosis 4. Grade 3 internal hemorrhoids Plan: I am going to recommend Anusol HC suppositories (and would consider Canasa suppository). I would recommend a fiber bowel regimen daily (combined MiraLAX plus Citrucel). The bleeding came from the solitary rectal ulcerations. I will follow-up the biopsies. Would resume anticoagulation when treatment started.
[2024-06-26] MEDS: SODIUM CHLORIDE 0.9% 10ML VIAL 10 ML IV ×2 (09:22→20:48)
[2024-06-26] MEDS: METOPROLOL SUCCINATE XL 25MG TABLET 25 MG PO (09:22)
[2024-06-26] MEDS: ISOSORBIDE MONO 30MG TAB.ER.24H 30 MG PO (09:22)
[2024-06-26] MEDS: PANTOPRAZOLE 40MG VIAL 40 MG IV ×2 (09:22→20:48)
[2024-06-26] MEDS: RANOLAZINE 500MG ER TABLET 1000 MG PO ×2 (09:22→20:48)
[2024-06-26 10:57] LABS: Troponin I 0.93 ng/ml (0.00-0.034)
--- NOTE | 2024-06-26 14:01 | EXP.CARD.PN ---
Subjective Subjective Date: 06/26/24 Time: 14:01 Principal diagnosis: GI bleed, NSTEMI Interval history: 78-year-old white male in bed post endoscopy in no acute distress. Rectal ulcer was seen on endoscopy which is likely the source of the bleeding and felt to be due to recurrent constipation with straining. He has been started on Anusol HC suppositories with daily fiber recommendations. In light of the patient's elevated troponins consistent with non-STEMI we will proceed with left heart catheterization tomorrow. Patient agrees to proceed. Exam Data for Last 24 hours Vital signs and Labs for Last 24 Hours: Temp Pulse Resp BP Pulse Ox O2 Del Method 97 F L 67 16 101/55 L 97 Room Air 06/26/24 08:19 06/26/24 08:38 06/26/24 08:19 06/26/24 08:38 06/26/24 08:38 06/26/24 09:00 Laboratory Results - last 24 hr 06/25/24 16:35: Troponin I 1.54 H 06/25/24 17:50: Hgb 12.5 L D, Hct 38.8 L 06/26/24 05:50: WBC 6.4, RBC 3.84 L, Hgb 11.3 L, Hct 35.2 L, MCV 91.7, MCH 29.4, MCHC 32.1, RDW 14.7, Plt Count 166, MPV 10.5 H, Neut % (Auto) 71.6, Lymph % (Auto) 17.6, [place] % (Auto) 6.4, Eos % (Auto) 0.9, Baso % (Auto) 0.5, Neut # (Auto) 4.6, Lymph # (Auto) 1.1, [place] # (Auto) 0.4, Eos # (Auto) 0.1, Baso # (Auto) 0.0, Sodium 135 L, Potassium 3.6, Chloride 103, Carbon Dioxide 28, Anion Gap 7.6, BUN 16 D, Creatinine 1.10, Estimated Creat Clear 50, Estimated GFR 65, Est GFR ( Amer) 79, Glucose 88, Calcium 8.8, Magnesium 1.7, Total Bilirubin 0.8, AST 28, ALT 12 D, Alkaline Phosphatase 79, Troponin I 0.93 H, Total Protein 5.6 L, Albumin 3.2 L D, Globulin 2.4, Albumin/Globulin Ratio 1.3 I & O for Last 24 hours: Intake & Output 06/24/24 06/25/24 06/26/24 06/27/24 11:59 11:59 11:59 11:59 Intake Total 4150 / 4150 540 / 540 Output Total 0 / 0 Balance 4150 / 4150 540 / 540 Weight 147 lb 137 lb 4.157 oz Constitutional Constitutional: no acute distress *Routine Respiratory Exam Respiratory: Present CTA bilaterally *Routine Cardiovascular Exam Cardiovascular: Present RRR Progress Note: A&P Assessment and plan (1) Rectal bleeding: Status: Acute (2) Non-ST elevation [place] (NSTEMI): Status: Acute (3) COPD (chronic obstructive pulmonary disease): Status: Acute (4) History of lung cancer: Status: Chronic (5) CAD (coronary artery disease): Status: Chronic Assessment and Plan Assessment and Plan for All Diagnoses:: 1. GI bleed with hemoglobin currently at 14 -Proceed with endoscopy tomorrow -stop aspirin 2. Known CAD with elevated troponins with abnormal EKG (new inferior ST segment depression) consistent with non-STEMI felt due to demand ischemia of the RCA distribution. Noted to have collateral flow to distal RCA on recent C in 03/2024. -Plan for cardiac cath tomorrow - Continue isosorbide, metoprolol, Ranexa and plavix. Stop Aspirin 3. COPD with history of lung cancer 2021 -followed by [facility] 4. Hyperlipidemia -continue statin 5. History of HFimpEF -continue lasix and spironolactone 6. History of PAD Proceed with left heart catheterization tomorrow. Restart Plavix therapy.
--- NOTE | 2024-06-26 17:24 | PC.NURSE ---
patient tolerated clear liquid diet well. patient has ambulated down the rebolledo this shift. remains a.ox4 and on room air tolerating well. no c/o chest pain. family at bedside, call light within reach
[2024-06-26] MEDS: MAGNESIUM SULFATE IN WATER 2 GM/50 ML PIGGYBACK IV ×2 (20:47→21:53)
[2024-06-26] MEDS: ATORVASTATIN 40MG TABLET 80 MG PO (20:48)
--- NOTE | 2024-06-26 21:05 | P.PN_ITS ---
Subjective *Date: 06/26/24 *Time: 21:05 Interval history: Patient tolerated colonoscopy well, showed rectal ulcer. Cardiology planning for [facility] for NSTEMI tomorrow. N.p.o. midnight. No chest pain, shortness of breath. Exam Data for Last 24 hours Vital signs and Labs for Last 24 Hours: Temp Pulse Resp BP Pulse Ox O2 Del Method 98.5 F 78 18 97/54 L 98 Room Air 06/26/24 20:00 06/26/24 20:00 06/26/24 20:00 06/26/24 20:00 06/26/24 20:00 06/26/24 20:00 Laboratory Results - last 24 hr 06/26/24 05:50: WBC 6.4, RBC 3.84 L, Hgb 11.3 L, Hct 35.2 L, MCV 91.7, MCH 29.4, MCHC 32.1, RDW 14.7, Plt Count 166, MPV 10.5 H, Neut % (Auto) 71.6, Lymph % (Auto) 17.6, [place] % (Auto) 6.4, Eos % (Auto) 0.9, Baso % (Auto) 0.5, Neut # (Auto) 4.6, Lymph # (Auto) 1.1, [place] # (Auto) 0.4, Eos # (Auto) 0.1, Baso # (Auto) 0.0, Sodium 135 L, Potassium 3.6, Chloride 103, Carbon Dioxide 28, Anion Gap 7.6, BUN 16 D, Creatinine 1.10, Estimated Creat Clear 50, Estimated GFR 65, Est GFR ( Amer) 79, Glucose 88, Calcium 8.8, Magnesium 1.7, Total Bilirubin 0.8, AST 28, ALT 12 D, Alkaline Phosphatase 79, Troponin I 0.93 H, Total Protein 5.6 L, Albumin 3.2 L D, Globulin 2.4, Albumin/Globulin Ratio 1.3 I & O for Last 24 hours: Intake & Output 06/23/24 06/24/24 06/25/24 06/26/24 23:59 23:59 23:59 23:59 Intake Total 5170 / 5170 Output Total 0 / 0 0 / 0 Balance 2149 5170 / 5170 Weight 64.41 kg 62.26 kg Constitutional Constitutional: no acute distress *Routine Respiratory Exam Respiratory: Present CTA bilaterally *Routine Cardiovascular Exam Cardiovascular: Present RRR Assessment and Plan *Assessment and plan (1) Rectal bleeding: Status: Acute Category: Medical Code(s): K62.5 - Hemorrhage of anus and rectum Plan Carlo Hubbard is a 78-year-old male who presented with hematochezia and was admitted for GI bleed. #Hematochezia #GI bleed #History of hemorrhoids, constipation ? Has had 2 episodes of hematochezia the morning of admission. No previous events like this. ? No recent changes in medication, but does endorse history of external hemorrhoids with worsening constipation over the past week. ? CT abdomen/pelvis shows sigmoid, rectal colitis and significant iliofemoral stenosis. ? Initial hemoglobin 14.2, to 11.3 after IV fluids. ? GI consulted, s/p colonoscopy which showed distal rectal ulceration with stigmata?probable solitary rectal ulcers (from straining during defecation). Anticoagulation applied to prevent bleeding. Full colonoscopy report below. ? Started MiraLAX, Citrucel (will be started on discharge) per GI recommendations. #NSTEMI likely type II #Chest pain #CAD with stents #Hypertension ? Initial troponin 1.66, EKG without acute ischemic changes. No chest pain, shortness of breath. Chronically elevated troponin with complex cardiac history with stents. ? Cardiology consulted, planning for [facility] tomorrow. N.p.o. at midnight. ? Continue aspirin, Plavix. ? Continue atorvastatin 80 mg, metoprolol succinate 25 mg, ranolazine 1000 mg twice daily, Imdur 30 mg. #Hypertension #HFimpEF ? Continue home spironolactone, Lasix 40 mg. Currently euvolemic. #COPD ? Continue home LAMA LABA. Colonoscopy impression: 1. Distal rectal ulceration with stigmata?probable solitary rectal ulcers (from straining during defecation) 2. Diminutive colonic polyps x 2 3. Left-sided diverticulosis 4. Grade 3 internal hemorrhoids Full code DVT prophylaxis: Lovenox 40 mg
[2024-06-27] VITALS (18 sets, daily range): BP systolic 90–109; BP diastolic 57–67; PULSE 62–80; RESP 16–20; TEMP 36.5–36.7; O2SAT 90–100; BMI 20.9
--- NOTE | 2024-06-27 04:50 | PC.NURSE ---
Pt is alert and oriented x4. Pt is NSR on telemetry. Pt denies pain and needs when asked. Pt magnesium 1.7, magnesium was replaced this shift per protocol. Pt is NPO and has been since
[2024-06-27 06:54] LABS: Anion Gap 5.5 mEq/L (5-15); Aspartate Amino Transferase 24 U/L (17-59); Bilirubin,Total 0.4 mg/dl (0.2-1.3); Blood Urea Nitrogen 11 mg/dl (9-20); Calcium 8.6 mg/dl (8.4-10.2); Carbon Dioxide 30 mmol/L (22.0-30.0); Chloride 105 mmol/L (98-107); Creatinine Clearance Estimated 55 mL/min (50-200); Estimated Glomerular Filt Rate 73 ml/min (>60); GFR (African American) 88 ML/MIN (>60); Glucose 96 mg/dl (74-100); Magnesium 2.5 mg/dl (1.6-2.3); Potassium 3.5 mmoL/L (3.5-5.1); Sodium 137 mmol/L (136-145)
[2024-06-27 06:55] LABS: Alanine Aminotransferase 11 U/L (12-78); Albumin Level 2.9 g/dl (3.5-5.0); Albumin/Globulin Ratio 1.2 (1.1-1.8); Alkaline Phosphatase 72 U/L (38-126); Globulin 2.5 g/dL (1.3-3.2); Total Protein,Serum 5.4 g/dl (6.3-8.2)
[2024-06-27 07:11] LABS: Basophils % 0.7 % (0.1-2.0); Eosinophils # 0.1 Kmm3 (0.0-0.4); Eosinophils % 1.8 % (0.1-12.0); Hematocrit 34.9 % (42.0-52.0); Hemoglobin 11.4 g/dL (14.1-18.0); Immature Granulocytes # 0.15 10^3uL; Immature Granulocytes % 2.5 %; Lymphocytes # 1.3 K/mm3 (0.7-4.5); Mean Corpuscular HGB Conc 32.7 g/dL (31.8-35.4); Mean Corpuscular Hemoglobin 30.2 pg (27.0-31.2); Mean Corpuscular Volume 92.3 fl (80-94); Mean Platelet Volume 10.5 fl (7.4-10.4); Monocytes # 0.5 K/mm3 (0.1-1.0); Monocytes % 8.5 % (1.7-9.3); Neutrophils % 65.5 % (37.0-80.0); Nucleated Red Blood Cells # 0 10^3/uL; Nucleated Red Blood Cells % 0 %; Platelet Count 180 K/mm3 (142-424); Red Blood Count 3.78 M/mm3 (4.60-6.20); Red Cell Distribution Width 14.6 % (11.5-17.5); Red Cell Distribution Width-SD 49.1 fL; White Blood Count 6.1 K/mm3 (4.8-10.8)
--- NOTE | 2024-06-27 07:24 | P.PN_ITS ---
Subjective *Date: 06/27/24 *Time: 07:24 Interval history: Patient awake and alert and getting out of bed. He had a little bit of spotting of blood last evening. No significant hemorrhage and no abdominal pain. Exam Data for Last 24 hours Vital signs and Labs for Last 24 Hours: Temp Pulse Resp BP Pulse Ox O2 Del Method 98.0 F 78 18 105/59 L 95 Room Air 06/27/24 04:00 06/27/24 04:00 06/27/24 04:00 06/27/24 04:00 06/27/24 04:00 06/27/24 06:45 Laboratory Results - last 24 hr 06/26/24 05:50: Troponin I 0.93 H 06/27/24 05:46: WBC 6.1, RBC 3.78 L, Hgb 11.4 L, Hct 34.9 L, MCV 92.3, MCH 30.2, MCHC 32.7, RDW 14.6, Plt Count 180, MPV 10.5 H, Neut % (Auto) 65.5, Lymph % (Auto) 21.0, [place] % (Auto) 8.5, Eos % (Auto) 1.8, Baso % (Auto) 0.7, Neut # (Auto) 4.0, Lymph # (Auto) 1.3, [place] # (Auto) 0.5, Eos # (Auto) 0.1, Baso # (Auto) 0.0, Sodium 137, Potassium 3.5, Chloride 105, Carbon Dioxide 30, Anion Gap 5.5, BUN 11 D, Creatinine 1.00, Estimated Creat Clear 55, Estimated GFR 73, Est GFR ( Amer) 88, Glucose 96, Calcium 8.6, Magnesium 2.5 H D, Total Bilirubin 0.4, AST 24, ALT 11 L, Alkaline Phosphatase 72, Total Protein 5.4 L, Albumin 2.9 L, Globulin 2.5, Albumin/Globulin Ratio 1.2 I & O for Last 24 hours: Intake & Output 06/24/24 06/25/24 06/26/24 06/27/24 23:59 23:59 23:59 23:59 Intake Total 5170 / 5410 240 / 240 Output Total 0 / 0 0 / 0 0 / 0 Balance 0 2149 5170 / 5410 240 / 240 Weight 142 lb 137 lb 4.157 oz 138 lb Constitutional Constitutional: no acute distress *Routine HEENT Exam Head: Present normocephalic Eye: Present EOMI and PERRL ENT: Present mucous membranes moist *Routine Neck Exam Neck: Present supple; Absent lymphadenopathy *Routine Respiratory Exam Respiratory: Present CTA bilaterally *Routine Cardiovascular Exam Cardiovascular: Present RRR *Routine Abdominal Exam Abdominal: Present soft and normoactive bowel sounds; Absent tenderness *Routine Extremities Exam Extremities: Absent cyanosis, clubbing or edema *Routine Skin Exam Skin: Present warm; Absent rash *Routine Neurological Exam Neurological: Present alert and oriented X3 Assessment and Plan *Assessment and plan (1) Stercoral ulcer of rectum: Status: Acute Category: Medical Code(s): K62.6 - Ulcer of anus and rectum (2) Rectal bleeding: Status: Acute Category: Medical Code(s): K62.5 - Hemorrhage of anus and rectum Plan 1. Stercoral ulcers of rectum presented with rectal hemorrhage on anticoagulation. This is related to fecal impaction and straining. I have relayed to the patient that he needs to remain on the fiber bowel regimen (combined MiraLAX plus Citrucel) when he goes home. I would continue hydrocortisone/Anusol HC suppositories x 5 days nightly and then as needed.
--- NOTE | 2024-06-27 07:26 | IR_ITS ---
APPROVED REPORT Patient Location: Inpatient PROCEDURES Left heart catheterization Left ventriculogram Selective coronary angiogram Drug-eluting stent deployment in the proximal to mid circumflex artery INDICATION Acute non-ST elevation myocardial infarction, Coronary artery disease Informed consent was obtained prior to the procedure. COMPLICATIONS NONE Estimated Blood Loss: LESS THAN 10 ML TECHNIQUE One percent lidocaine used to anesthetize the right anterior aspect of the wrist. The right radial artery was accessed via the Seldinger technique. A 6 Nepali sheath was placed in the right radial artery. 2.5 mg of Verapamil, 800 mcg of nitroglycerin, 1mg Lidocaine and 5000 U Heparin were given through the arterial sheath. The JL3 catheter was also used to perform left heart catheterization, left ventriculogram and selective coronary angiogram. At the end the diagnostic angiogram therapeutic Was administered giving a therapeutic ACT and the guide catheter was placed in the left main artery followed by Choice PT extra-support wire placed distally in the circumflex artery. The 3 mm x 15 mm [place] frontier stent was deployed at 16 nery reducing the stenosis to less than 10% [id number] flow was present before and after the procedure. At the end the procedure the apparatus was removed the sheath was removed and hemostasis was achieved using TR banding patient was transferred to the postop boarding in stable condition condition. ANGIOGRAPHIC RESULTS The left main artery Patent The left anterior descending artery Has stents in the ostial segment originating from the left main artery where the stents are widely patent with mild diffuse concentric in-stent restenosis with excellent distal transitioning The circumflex artery Nondominant yet still large with stents originating from the left main artery which are widely patent in the proximal segment and have 90% concentric in-stent restenosis in just before the first obtuse marginal artery The right coronary artery Is dominant has stents in the proximal to mid segment with the stents being widely patent with mild to moderate concentric in-stent restenosis. Distally the vessel is subtotally occluded The JUNIOR ventriculogram reveals Reduced at 45% with inferior wall hypokinesis The left ventricular end-diastolic pressure 15 mmHg IMPRESSION Coronary artery disease as described above Successful stenting of the circumflex artery severe disease reduced to 10% with 1 drug-eluting stent Reduced ejection fraction with regional wall motion abnormality Borderline LVEDP PLAN 1. Dual antiplatelet therapy 2. Cardiac rehabilitation 3. Avoidance of tobacco products 4. Risk factor modification 5. LDL less than 55 achieved with high intensity statin Electronically signed by : Carl Gaffney MD 06/27/2024 12:47:37
[2024-06-27] MEDS: PANTOPRAZOLE 40MG VIAL 40 MG IV (08:14)
[2024-06-27] MEDS: SODIUM CHLORIDE 0.9% 10ML VIAL 10 ML IV (08:14)
[2024-06-27] MEDS: CLOPIDOGREL 75MG TAB 75 MG PO (08:15)
[2024-06-27] MEDS: ASPIRIN EC 81MG TABLET 81 MG PO (08:15)
[2024-06-27] MEDS: HYDROCORTISONE 30MG SUPPOSITORY 30 MG RC (08:16)
[2024-06-27] MEDS: METOPROLOL SUCCINATE XL 25MG TABLET 25 MG PO (10:00)
[2024-06-27] MEDS: NITROGLYCERIN 800MCG/8ML SYR (CATH LAB) 800 MCG IA (12:09)
[2024-06-27] MEDS: diphenhydrAMINE 50MG/ML VIAL 50 MG IV (12:09)
[2024-06-27] MEDS: HEPARIN 1,000 UNITS/500ML NS (CATH LAB) 3000 UNIT IV (12:10)
[2024-06-27] MEDS: VERAPAMIL 2.5MG/ML 2ML VIAL 2.5 MG IV (12:10)
[2024-06-27] MEDS: LIDOCAINE 1% 10ML MDV 10 ML IJ (12:10)
[2024-06-27] MEDS: HEPARIN 1,000 UNITS/ML 10ML VIAL (CATH LAB) 5000 UNIT IV (12:10)
[2024-06-27] MEDS: FENTANYL 100MCG/2ML VIAL 50 MCG IV (12:11)
[2024-06-27] MEDS: 0.9 % SODIUM CHLORIDE 500 ML 25 ML IV (12:11)
[2024-06-27] MEDS: MIDAZOLAM HCL 1MG/ML 5ML VIAL 1 MG IV (12:11)
[2024-06-27] MEDS: IPRATROPIUM/ALBUTEROL 3 ML NEB IH (13:33)
[2024-06-27] MEDS: IOPAMIDOL-370 (76%);100ML BOTTLE 80 ML IV (14:24)
[2024-06-27 14:26] LABS: CATHL Activated Clotting Time 368 SEC (74-125)
--- NOTE | 2024-06-27 14:43 | EXP.DC.SUM ---
General Admission date:: 06/25/24 HPI HPI HPI: From Dr. Miranda note: Mr. Noriega is a 78-year-old gentleman who presents with rectal bleeding. The patient reports 2 bouts of hematochezia this morning that filled the commode. There was no black stools or melena. He does have a history of very mild hemorrhoidal bleeding and does have hemorrhoid prolapse. He is on Plavix and aspirin. He did have the bleeding this morning that filled the commode and was alarming. The patient did have a colonoscopy with Sofie Hoyt MD in August 2021 and had 2 polyps (tubular adenomas x 2) which were removed. There was no report of any diverticulosis on this report. 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 He reports no abdominal pain. He does have some chronic constipation. He does state that both bouts of bleeding this morning were accompanied with a bowel movement. He has had no unintentional weight loss. The patient's hemoglobin hematocrit are fairly stable with hemoglobin 14.0 and hematocrit 42.5 and this is unchanged from labs in April 2024. Case discussed with ED provider and decision was made to admit patient for GI bleed. Hospital Course Hospital Course Hospital Course: Carlo Hubbard is a 78-year-old male who presented with hematochezia and was admitted for GI bleed and NSTEMI. #Hematochezia #Rectal ulcer with GI bleed #History of hemorrhoids, constipation ? Had 2 episodes of hematochezia the morning of admission. No previous events like this. ? No recent changes in medication, but does endorse history of hemorrhoids with worsening constipation over the past week. ? CT abdomen/pelvis shows sigmoid, rectal colitis and significant iliofemoral stenosis. ? GI consulted, s/p colonoscopy 06/26/2024 which showed distal rectal ulceration with stigmata?probable solitary rectal ulcers (from straining during defecation). Anticoagulation applied to prevent bleeding. Full colonoscopy and EGD report below. ? Initial hemoglobin 14.2, to 11.4 after IV fluids. ? Discharged with MiraLAX, Citrucel (will be started on discharge), and hydrocortisone for 5 days per GI recommendations. #NSTEMI #CAD with stents #Hypertension ? Initial troponin 1.66, EKG without acute ischemic changes. No chest pain, shortness of breath. ? Cardiology consulted, s/p LHC with SOFY x 1 to LCx. Patient tolerated procedure well. ? Cardiology advised discontinuing aspirin and continuing Plavix 75 mg in the setting of recent GI bleed. Also advised to stop Ranexa. ? Continue atorvastatin 80 mg, metoprolol succinate 25 mg, Imdur 30 mg. #Hypertension #HFimpEF ? Continue home spironolactone, Lasix 40 mg. Currently euvolemic. #COPD ? Continue home LAMA LABA. Colonoscopy impression: 1. Distal rectal ulceration with stigmata?probable solitary rectal ulcers (from straining during defecation) 2. Diminutive colonic polyps x 2 3. Left-sided diverticulosis 4. Grade 3 internal hemorrhoids EGD Impression: 1. Duodenal pedunculated submucosal lesion (12 mm)?probable lipoma 2. Mild antral gastropathy Exam Data for Last 24 hours Vital signs and Labs for Last 24 Hours: Temp Pulse Resp BP Pulse Ox O2 Del Method 98.1 F 63 18 109/66 L 95 Room Air 06/27/24 11:10 06/27/24 13:34 06/27/24 12:55 06/27/24 12:55 06/27/24 13:34 06/27/24 13:34 Laboratory Results - last 24 hr 06/27/24 05:46: WBC 6.1, RBC 3.78 L, Hgb 11.4 L, Hct 34.9 L, MCV 92.3, MCH 30.2, MCHC 32.7, RDW 14.6, Plt Count 180, MPV 10.5 H, Neut % (Auto) 65.5, Lymph % (Auto) 21.0, [place] % (Auto) 8.5, Eos % (Auto) 1.8, Baso % (Auto) 0.7, Neut # (Auto) 4.0, Lymph # (Auto) 1.3, [place] # (Auto) 0.5, Eos # (Auto) 0.1, Baso # (Auto) 0.0, Sodium 137, Potassium 3.5, Chloride 105, Carbon Dioxide 30, Anion Gap 5.5, BUN 11 D, Creatinine 1.00, Estimated Creat Clear 55, Estimated GFR 73, Est GFR ( Amer) 88, Glucose 96, Calcium 8.6, Magnesium 2.5 H D, Total Bilirubin 0.4, AST 24, ALT 11 L, Alkaline Phosphatase 72, Total Protein 5.4 L, Albumin 2.9 L, Globulin 2.5, Albumin/Globulin Ratio 1.2 06/27/24 12:18: Activated Clotting Time 368 H* I & O for Last 24 hours: Intake & Output 06/24/24 06/25/24 06/26/24 06/27/24 23:59 23:59 23:59 23:59 Intake Total 5170 / 5410 480 / 480 Output Total 0 / 0 0 / 0 0 / 0 Balance 0 2150 5170 / 5410 480 / 480 Weight 64.41 kg 62.26 kg 62.596 kg Constitutional Constitutional: no acute distress *Routine HEENT Exam Head: Present normocephalic Eye: Present EOMI and PERRL ENT: Present mucous membranes moist *Routine Neck Exam Neck: Present supple; Absent lymphadenopathy *Routine Respiratory Exam Respiratory: Present CTA bilaterally *Routine Cardiovascular Exam Cardiovascular: Present RRR *Routine Abdominal Exam Abdominal: Present soft and normoactive bowel sounds; Absent tenderness *Routine Extremities Exam Extremities: Absent cyanosis, clubbing or edema *Routine Skin Exam Skin: Present warm; Absent rash *Routine Neurological Exam Neurological: Present alert and oriented X3 Results Data Completed and Pending Labs on day of discharge: Labs from last 24 hours 06/27/24 06/27/24 12:18 05:46 WBC 6.1 RBC 3.78 L Hgb 11.4 L Hct 34.9 L MCV 92.3 MCH 30.2 MCHC 32.7 RDW 14.6 Plt Count 180 MPV 10.5 H Neut % (Auto) 65.5 Lymph % (Auto) 21.0 [place] % (Auto) 8.5 Eos % (Auto) 1.8 Baso % (Auto) 0.7 Neut # (Auto) 4.0 Lymph # (Auto) 1.3 [place] # (Auto) 0.5 Eos # (Auto) 0.1 Baso # (Auto) 0.0 Activated Clotting Time 368 H* Sodium 137 Potassium 3.5 Chloride 105 Carbon Dioxide 30 Anion Gap 5.5 BUN 11 D Creatinine 1.00 Estimated Creat Clear 55 Estimated GFR 73 Est GFR ( Amer) 88 Glucose 96 Calcium 8.6 Magnesium 2.5 H D Total Bilirubin 0.4 AST 24 ALT 11 L Alkaline Phosphatase 72 Total Protein 5.4 L Albumin 2.9 L Globulin 2.5 Albumin/Globulin Ratio 1.2 DS: Diagnosis Discharge Diagnosis (1) Stercoral ulcer of rectum: Status: Acute Code(s): K62.6 - Ulcer of anus and rectum (2) Rectal bleeding: Status: Acute Code(s): K62.5 - Hemorrhage of anus and rectum Meds Home Medications and Allergies Home Medications ?Medication ?Instructions ?Recorded ?Confirmed ?Type albuterol sulfate 90 mcg/actuation 2 inh inhalation Q6HP PRN 09/21/23 06/25/24 History aerosol inhaler shortness of breath or wheezing nitroglycerin 0.4 mg sublingual 0.4 mg sublingual Q5MINP PRN chest 02/22/24 06/25/24 Rx tablet pain #30 tabs atorvastatin 80 mg tablet 80 mg PO HS #90 tabs 03/13/24 06/25/24 Rx isosorbide mononitrate 30 mg 30 mg PO DAILY #90 tabs 05/13/24 06/25/24 Rx tablet,extended release 24 hr metoprolol succinate 25 mg 25 mg PO DAILY #90 tabs 05/13/24 06/25/24 Rx tablet,extended release 24 hr azelastine 137 mcg-fluticasone 50 1 spray intranasal BID PRN 06/25/24 06/25/24 History mcg/spray nasal spray ALLERGIES denosumab 60 mg/mL subcutaneous 60 mg SQ DIRECTED 06/25/24 06/25/24 History syringe (Prolia) furosemide 40 mg tablet 40 mg PO TUTH Fluid 06/25/24 06/26/24 History spironolactone 25 mg tablet 25 mg PO DIRECTED Fluid 06/25/24 06/25/24 History tiotropium 2.5 mcg-olodaterol 2.5 2 puff inhalation DAILY Copd 06/25/24 06/25/24 History mcg/actuation mist for inhalation (Stiolto Respimat) clopidogrel 75 mg tablet 75 mg PO DAILY 06/27/24 06/27/24 History hydrocortisone acetate 30 mg 30 mg TX AM PRN rectal pain 30 06/27/24 Rx rectal suppository days #12 ea methylcellulose (laxative) 500 mg 500 mg PO DAILY #30 tabs 06/27/24 Rx tablet (Citrucel) polyethylene glycol 3350 17 17 g PO DAILY #510 grams 06/27/24 Rx gram/dose oral powder (Miralax) New Prescriptions to Start Prescriptions: hydrocortisone acetate Sandeep Peace methylcellulose (laxative) [Citrucel] Sandeep Peace polyethylene glycol 3350 [Miralax] Sandeep Peace Allergies Allergy/AdvReac Type Severity Reaction Status Date / Time No Known Allergies Allergy Verified 04/23/24 10:54 Discharge Plan Disposition Patient Disposition: Home, Self-Care Condition: Fair Discharge Order Discharge Orders: Discharge Order (Routine); Ordered 06/27/24 Ordered By: Sandeep Peace Follow up Plan Follow up with: Carl Tate DO [Primary Care Provider] - 07/05/24 11:30 am Carl Gaffney MD [Staff Physician] - 07/03/24 11:30 am Prescriptions/Medication Reconciliation: New polyethylene glycol 3350 [Miralax] 17 gram/dose powder 17 g PO DAILY Qty: 510 0RF Citrucel 500 mg tablet 500 mg PO DAILY Qty: 30 0RF hydrocortisone acetate 30 mg Suppository 30 mg TX AM PRN (Reason: rectal pain) 30 Days Qty: 12 0RF Continued nitroglycerin 0.4 mg tablet, sublingual 0.4 mg SUBLINGUAL Q5MINP PRN (Reason: chest pain) Qty: 30 5RF Rx Instructions: do not exceed 3 doses per episode atorvastatin 80 mg tablet 80 mg PO HS Qty: 90 3RF isosorbide mononitrate 30 mg tablet extended release 24 hr 30 mg PO DAILY Qty: 90 3RF metoprolol succinate 25 mg tablet extended release 24 hr 25 mg PO DAILY Qty: 90 1RF albuterol sulfate 90 mcg/actuation HFA aerosol inhaler 2 inh inhalation Q6HP PRN (Reason: shortness of breath or wheezing) furosemide 40 mg tablet 40 mg PO TUTH Rx Instructions: TAKE ONE TABLET ON MONDAY AND MONDAY MORNINGS spironolactone 25 mg tablet 25 mg PO DIRECTED Rx Instructions: TAKE ONE TABLET ON MONDAY, MONDAY, AND MONDAY MORNINGS Prolia 60 mg/mL Syringe 60 mg SQ DIRECTED Rx Instructions: EVERY 6 MONTHS FOR OSTEO azelastine-fluticasone 137-50 mcg/spray [place],Non-Aerosol 1 spray INTRANASAL BID PRN (Reason: ALLERGIES) Rx Instructions: administer into each nostril Stiolto Respimat 2.5-2.5 mcg/actuation mist 2 puff INHALATION DAILY clopidogrel 75 mg tablet 75 mg PO DAILY Patient Comments: TAKE 1 TABLET BY MOUTH ONCE DAILY FOR ANTIPLATELET Discontinued aspirin 81 mg tablet,delayed release (DR/EC) 81 mg PO DAILY ranolazine 1,000 mg tablet extended release 12 hr 1,000 mg PO BID 30 Days Qty: 180 3RF clopidogrel 75 mg tablet 75 mg PO DAILY Problem Reconciliation Problems Reviewed?: Yes Patient Discharge Instructions Patient Instructions: Cardiac Catheterization, DI for Surgical Site Infection, DI for Moderate Sedation, DI for Gastrointestinal Bleeding Print Language: Lithuanian Providers Primary Care Provider: Carl Tate Admit Provider: Sandeep Peace Attending Provider: Sandeep Peace
--- NOTE | 2024-06-27 15:08 | P.PN_ITS ---
Subjective Subjective Date: 06/27/24 Time: 15:09 Principal diagnosis: GI bleed, NSTEMI Interval history: 78-year-old white male in bed postcatheterization in no acute distress. He did receive additional stent to the circumflex artery today. He is anxious to go home today Exam Data for Last 24 hours Vital signs and Labs for Last 24 Hours: Temp Pulse Resp BP Pulse Ox O2 Del Method 98.1 F 63 18 109/66 L 95 Room Air 06/27/24 11:10 06/27/24 13:34 06/27/24 12:55 06/27/24 12:55 06/27/24 13:34 06/27/24 13:34 Laboratory Results - last 24 hr 06/27/24 05:46: WBC 6.1, RBC 3.78 L, Hgb 11.4 L, Hct 34.9 L, MCV 92.3, MCH 30.2, MCHC 32.7, RDW 14.6, Plt Count 180, MPV 10.5 H, Neut % (Auto) 65.5, Lymph % (Auto) 21.0, [place] % (Auto) 8.5, Eos % (Auto) 1.8, Baso % (Auto) 0.7, Neut # (Auto) 4.0, Lymph # (Auto) 1.3, [place] # (Auto) 0.5, Eos # (Auto) 0.1, Baso # (Auto) 0.0, Sodium 137, Potassium 3.5, Chloride 105, Carbon Dioxide 30, Anion Gap 5.5, BUN 11 D, Creatinine 1.00, Estimated Creat Clear 55, Estimated GFR 73, Est GFR ( Amer) 88, Glucose 96, Calcium 8.6, Magnesium 2.5 H D, Total Bilirubin 0.4, AST 24, ALT 11 L, Alkaline Phosphatase 72, Total Protein 5.4 L, Albumin 2.9 L, Globulin 2.5, Albumin/Globulin Ratio 1.2 06/27/24 12:18: Activated Clotting Time 368 H* I & O for Last 24 hours: Intake & Output 06/25/24 06/26/24 06/27/24 06/28/24 11:59 11:59 11:59 11:59 Intake Total 4150 / 4150 1260 / 1260 240 / 240 Output Total 0 / 0 0 / 0 Balance 4150 / 4150 1260 / 1260 240 / 240 Weight 147 lb 137 lb 4.157 oz 138 lb Constitutional Constitutional: no acute distress *Routine Respiratory Exam Respiratory: Present CTA bilaterally *Routine Cardiovascular Exam Cardiovascular: Present RRR Progress Note: A&P Assessment and plan (1) Stercoral ulcer of rectum: Status: Acute (2) Rectal bleeding: Status: Acute (3) Non-ST elevation CT (NSTEMI): Status: Acute (4) COPD (chronic obstructive pulmonary disease): Status: Acute (5) History of lung cancer: Status: Chronic (6) CAD (coronary artery disease): Status: Chronic Assessment and Plan Assessment and Plan for All Diagnoses:: 1. GI bleed with hemoglobin currently at 14 -Proceed with endoscopy tomorrow -stop aspirin 2. Known CAD with elevated troponins with abnormal EKG (new inferior ST segment depression) consistent with non-STEMI felt due to demand ischemia of the RCA distribution. Noted to have collateral flow to distal RCA on recent C in 03/2024. - C, 06/27/2024, SOFY to circumflex artery. - Continue isosorbide, metoprolol, Ranexa and plavix. Stop Aspirin 3. COPD with history of lung cancer 2021 -followed by [facility] 4. Hyperlipidemia -continue statin 5. History of HFimpEF -continue lasix and spironolactone 6. History of PAD Patient is clinically stable from a cardiac standpoint for discharge home. Home medication recommendations: Plavix 75 mg daily Atorvastatin 80 mg daily Isosorbide mononitrate 30 mg daily Metoprolol succinate 25 mg daily Spironolactone 25 mg on Monday, and Monday Furosemide 40 mg on Monday and Stop aspirin therapy due to recent GI bleed. Follow-up in our office next week
--- NOTE | 2024-06-28 10:57 | SW/DCPLANNER ---
Spoke with patient on the phone. Patient stated that he is doing pretty good. Patient stated that he is aware of his upcoming appointments. Patient stated that he is still waiting to hear word from clinic pharmacy about one of his medicine. Patient stated that he has no concerns or questions at this time. Michelle Azar
== END 2024-06-27 17:22 | disposition home or self-care (01) | DRG 981 ==
LOC: ER 13:34 → 2ND 13:43
PROVIDERS: Internal Medicine; Internal Medicine Gastroenterology; Physician Assistant; Admitting Provider Student in an Organized Health Care Education/Training Program; Emergency Provider Emergency Medicine; PCP Internal Medicine; Visit Provider Student in an Organized Health Care Education/Training Program
PROC: 0DJ08ZZ Inspection of Upper Intestinal Tract, Via Natural or Artificial Opening Endoscopic (ICD-10-PCS; CPT 45378; principal; 2024-06-26 07:30)
PROC: 4A023N7 Measurement of Cardiac Sampling and Pressure, Left Heart, Percutaneous Approach (ICD-10-PCS; CPT 93452; principal; 2024-06-27 13:00)
DX: K62.6 Ulcer of anus and rectum (principal); I21.4 Non-ST elevation (NSTEMI) myocardial infarction; I50.20 Unspecified systolic (congestive) heart failure; K62.5 Hemorrhage of anus and rectum; T82.855A Stenosis of coronary artery stent, initial encounter; R53.83 Other fatigue; J43.2 Centrilobular emphysema; Z85.118 Personal history of other malignant neoplasm of bronchus and lung; E78.2 Mixed hyperlipidemia; I73.9 Peripheral vascular disease, unspecified; Z95.5 Presence of coronary angioplasty implant and graft; I25.2 Old myocardial infarction; J44.9 Chronic obstructive pulmonary disease, unspecified; D12.5 Benign neoplasm of sigmoid colon; D12.2 Benign neoplasm of ascending colon; D12.8 Benign neoplasm of rectum; Z82.49 Family history of ischemic heart disease and other diseases of the circulatory system; I77.1 Stricture of artery; I25.10 Atherosclerotic heart disease of native coronary artery without angina pectoris; K31.89 Other diseases of stomach and duodenum; D17.5 Benign lipomatous neoplasm of intra-abdominal organs; K64.2 Third degree hemorrhoids; K57.30 Diverticulosis of large intestine without perforation or abscess without bleeding; Z87.891 Personal history of nicotine dependence; Z79.899 Other long term (current) drug therapy; Z79.51 Long term (current) use of inhaled steroids
CPT/HCPCS: 36415; 71045; 74174; 80053; 81001; 82272; 83605; 83690; 83735; 83880; 84484; 85014; 85018; 85025; 85347; 86850; 92941; 93005; 93306; 93458; 94640; 99152; 99285; C1725; C1769; C1874; C9606; G0328; G0378; J1200; J1644; J2250; J2470; J3010; J3475; J7120; J7620; Q9967

== ENCOUNTER 2024-07-06 21:27 | Day surgery (SDC) | payer MEDICARE, SELFPAY ==
--- NOTE | 2024-07-06 21:12 | IR_ITS ---
APPROVED REPORT Patient Location: Emergent PROCEDURES 1. Left heart catheterization 2. Selective coronary arteriography 3. Left ventriculography 4. PTCA of the left circumflex INDICATION 1. Acute myocardial infarction, 2. Coronary artery disease SCAI INDICATION Patient is 78-year-old white male who presented with an acute myocardial infarction and atrial fibrillation outside hospital. Transferred here secondary to acute myocardial infarction. Taken directly to the cardiac catheterization laboratory Informed consent was obtained prior to the procedure. COMPLICATIONS none Estimated Blood Loss: less than 10ml TECHNIQUE One percent lidocaine used to anesthetize the right groin. The right femoral artery was accessed via the Seldinger technique and a 5 Anguillan sheath was placed in the right femoral artery. A JL 4, JR4 catheter were used to perform left heart catheterization. I also used an EBU 3.5 guide catheter. ANGIOGRAPHIC RESULTS The left main artery Had stents extending throughout the left main coronary artery into the proximal/mid left anterior descending The left anterior descending artery Had stents extending from the left main coronary artery throughout the proximal/mid vessel. Stents patent. Smooth 30 to 40% eccentric mid/distal stenosis The circumflex artery Was 100% in-stent occluded in its proximal portion. No flow to the mid or distal vessel. YEVGENIY 0 The right coronary artery Large and dominant with stents noted throughout the proximal/mid vessel. Stents were free of disease. Diffuse 20% distal stenosis. The JUNIOR ventriculogram reveals Borderline normal left ventricular systolic function at 50%. No wall motion abnormalities. No gradient on pullback of the catheter The left ventricular end-diastolic pressure 35 Left circumflex was 100% occluded in its proximal portion. This was in-stent. This is what was recently intervened upon approximately a week ago. Blunt occlusion at that area. Went in with an EBU 3.5 guide catheter. ACT was greater than 400. Crossed with a Choice PT wire. Balloon dilation was done throughout the ostial/proximal/mid left circumflex with no christianity of flow. YEVGENIY flow was still 0. Patient started to become bradycardic during the procedure. Atropine was given. Epinephrine was also given. Patient was noted to have cardiac standstill with staining of contrast in the arteries. CPR was started. Despite aggressive efforts no christianity of flow was obtained in the circumflex artery. Cardiac standstill was noted despite CPR and multiple rounds of epinephrine. IMPRESSION 1. 100% in-stent stenosis in the proximal left circumflex artery with YEVGENIY 0 flow 2. Patent stents in the left main coronary artery extending into the proximal/mid left anterior descending 3. Patent stents in the proximal/mid right coronary artery 4. Borderline normal left ventricular systolic function 5. Unsuccessful angioplasty throughout the left circumflex with no christianity of normal flow and continued YEVGENIY 0 flow 6. Cardiac standstill/arrest during procedure with unsuccessful resuscitation efforts PLAN 1. Despite aggressive efforts patient did not regain flow down the left circumflex artery. During the procedure patient became bradycardic and hypotensive, Despite CPR and multiple doses of atropine and epinephrine, patient was unable to be resuscitated. Despite being able to wire the circumflex, we were never able to regain flow down the artery. This is despite multiple attempts at angioplasty. We never lost flow down the left anterior descending, but patient started to become hypotensive and bradycardic during the procedure and had cardiac standstill. Initial slight response to epinephrine and atropine but eventually patient did not respond, and eventually developed cardiac standstill with no response to medications or cardiopulmonary resuscitation. Electronically signed by : Home Ma MD 07/06/2024 23:26:50
[2024-07-06 21:31] VITALS: BMI 27.3
[2024-07-06] MEDS: IOPAMIDOL-370 (76%);100ML BOTTLE 130 ML IV (22:45)
--- NOTE | 2024-07-06 22:49 | PC.NURSE ---
Informed by greenskeeper laborer that patient TOD [id number]. [facility] called at 2257 by TRN and spoke with Allie Randhawa who states that patient will not be taken as a BORIS case. Case #[id number]. Jasmine Reich, [employer] Manager called and informed of patient expiration. Due to greenskeeper laborer having second case after patient expiration, patient was transported to room 219 on the floor for family privacy. Family consoled and support provided at this time. Family informed of patient being moved from greenskeeper laborer to floor.
[2024-07-06] MEDS: HEPARIN 1,000 UNITS/500ML NS (CATH LAB) 3000 UNIT IV (23:04)
[2024-07-06] MEDS: HEPARIN 1,000 UNITS/ML 10ML VIAL (CATH LAB) 5000 UNIT IV (23:05)
[2024-07-06] MEDS: VERAPAMIL 2.5MG/ML 2ML VIAL 2.5 MG IV (23:05)
[2024-07-06] MEDS: 0.9 % SODIUM CHLORIDE 500 ML 25 ML IV (23:05)
[2024-07-06] MEDS: LIDOCAINE 1% 10ML MDV 10 ML IJ (23:05)
[2024-07-06] MEDS: diphenhydrAMINE 50MG/ML VIAL 50 MG IV (23:06)
[2024-07-06] MEDS: MIDAZOLAM HCL 1MG/ML 5ML VIAL 1 MG IV (23:06)
[2024-07-06] MEDS: NITROGLYCERIN 800MCG/8ML SYR (CATH LAB) 800 MCG IA (23:06)
[2024-07-06] MEDS: FENTANYL 100MCG/2ML VIAL 50 MCG IV (23:07)
--- NOTE | 2024-07-07 02:25 | PC.NURSE ---
PT LEFT WITH HOME AT THIS TIME
--- NOTE | 2024-07-07 03:13 | P.DN_ITS ---
<Statement entered by Brock Petty MD - 07/19/24 10:39> Discussed patient and case with nurse practitioner. Agree with exam findings and care plan as documented. Time of called at 22:49. Disregard any other noted TOD below as they are inaccurate. Documented by User: Rohanclaus Lane APRN 07/07/24 03:18 Pronouncement Note Date and Time of Date of : 07/06/24 Time of : 23:25 PCOD Preliminary cause of : Cardiac arrest Contributing Factors (1) ST elevation [place] (STEMI): (2) CAD (coronary artery disease): (3) HTN (hypertension): (4) History of smoking 30 or more pack years: (5) COPD (chronic obstructive pulmonary disease): (6) History of lung cancer: (7) PAD (peripheral artery disease): (8) HHD (hypertensive heart disease): (9) A-fib: Summary Additional details: [facility] had contacted cardiology that were willing to accept the patient., So I took report from the [facility] that the patient had gone into A-fib was on amiodarone drip and received beta-kellie. The patient was going to be transferred to this hospital and then be seen by cardiology.. After receiving report from the [facility] talked with cardiology who said Dr. Gaffney said he had just been informed that the patient had converted but was showing ST elevation.. That the patient would be going directly to the Interface Analyst. I was informed by nursing staff that the patient coded in the Interface Analyst and was pronounced.. Patient was brought to room 219 for family viewing because there was a second patient needing to come into the Interface Analyst. I did go to the room to see the patient he was in the hospital bed. In the room was prepared for family to come and visit. Patient was not admitted to the floor but was only brought to the floor for family viewing. I did do a quick assessment of the patient to make sure that there was no pulse respirations or signs of life Additional Data Confirmation of : no pulse, no respirations and no heart sounds Attending physician: Renetta Calhoun MD Was code activated?: Yes (This was done in the Interface Analyst so there was no overhead code called) Autopsy should be considered if:: Unknown or unanticipated medical complications Cause is not known with certainty on clinical grounds Would allay concerns of the public/family regarding Unexplained/unexpected apparently natural and not subject to a forensic medical jurisdiction DOA Within 24 hours of admission Sustained or apparently sustained injury while in the hospital Result of high risk, infectious and contagious disease Obstetric and pediatric arising from environmental or occupational hazard Unexplained/unexpected from dental, medical, or surgical diagnostic procedures and/or therapies Would disclose a known or suspected illness which also may have a bearing on survivors or recipients of transplanted organs Autopsy requested?: No Inappropriate situation line up examiner notified?: No (Not to my knowledge) Organ bank notified?: No (Not to my knowledge) Advance directives: No (Was not informed of any advanced directive) Documented by User: Brock Petty MD 07/19/24 10:35 Pronouncement Note Date and Time of Time of : 22:49 Contributing Factors (1) ST elevation [place] (STEMI): (2) CAD (coronary artery disease): (3) HTN (hypertension): (4) History of smoking 30 or more pack years: (5) COPD (chronic obstructive pulmonary disease): (6) History of lung cancer: (7) PAD (peripheral artery disease): (8) HHD (hypertensive heart disease): (9) A-fib: Summary Additional details: [facility] had contacted cardiology that were willing to accept the patient., So I took report from the [facility] that the patient had gone into A-fib was on amiodarone drip and received beta-kellie. The patient was going to be transferred to this hospital and then be seen by cardiology.. After receiving report from the [facility] talked with cardiology who said Dr. Gaffney said he had just been informed that the patient had converted but was showing ST elevation.. That the patient would be going directly to the Interface Analyst. I was informed by nursing staff that the patient coded in the Interface Analyst and was pronounced.. Patient was brought to room 219 for family viewing because there was a second patient needing to come into the Interface Analyst. I did go to the room to see the patient he was in the hospital bed. In the room was prepared for family to come and visit. Patient was not admitted to the floor but was only brought to the floor for family viewing. I did do a quick assessment of the patient to make sure that there was no pulse respirations or signs of life Time of called at 22:49 in the Interface Analyst [address] Dr. Ma when compressions were discontinued. Patient had gone into pulseless arrest. See cath procedure scanned report for full details. Patient became bradycardic and then went pulseless. Atropine administered and patient became bradycardic. Did not response. Appears to have received at least 3 rounds of epinephrine with no ROSC achieved. Patient was subsequently brought to the floor to allow family time to be with patient. He was again evaluated by nurse practitioner after arriving to the floor. Patient was on evaluation. Additional Data Family: at bedside Attending/PCP notified?: Yes Attending physician: Brock Petty MD line up examiner notified?: Yes Organ bank notified?: Yes
== END 2024-07-06 22:49 | disposition expired ==
LOC: SDC 21:28 → 2ND 07-07 00:26
PROVIDERS: Internal Medicine Cardiovascular Disease; Visit Provider Student in an Organized Health Care Education/Training Program
PROC: 4A023N7 Measurement of Cardiac Sampling and Pressure, Left Heart, Percutaneous Approach (ICD-10-PCS; CPT 93452; principal; 2024-07-06 21:30)
DX: I21.3 ST elevation (STEMI) myocardial infarction of unspecified site (principal); T82.855A Stenosis of coronary artery stent, initial encounter; I25.10 Atherosclerotic heart disease of native coronary artery without angina pectoris; I46.2 Cardiac arrest due to underlying cardiac condition; I73.9 Peripheral vascular disease, unspecified; I11.9 Hypertensive heart disease without heart failure; I48.91 Unspecified atrial fibrillation; R00.1 Bradycardia, unspecified; I95.89 Other hypotension; J44.9 Chronic obstructive pulmonary disease, unspecified; Y71.1 Therapeutic (nonsurgical) and rehabilitative cardiovascular devices associated with adverse incidents; Z87.891 Personal history of nicotine dependence; Z85.118 Personal history of other malignant neoplasm of bronchus and lung; Z82.49 Family history of ischemic heart disease and other diseases of the circulatory system; Z79.899 Other long term (current) drug therapy; Z79.02 Long term (current) use of antithrombotics/antiplatelets
CPT/HCPCS: 92920; 92950; 93458; 99152; 99153; C1725; C1769; C1894; G0378; J0171; J0461; J1200; J1644; J3010; J7040; Q9967